=== PATIENT | male | born 1970 | race Caucasian/White ===

== ENCOUNTER → 2019-08-17 16:18 | Outpatient (BNVA) | payer BC, SELFPAY | PROVIDERS: Visit Provider Registered Nurse | DX: E11.9 Type 2 diabetes mellitus without complications (principal); I10 Essential (primary) hypertension; R60.9 Edema, unspecified | CPT/HCPCS: 80053; 80061; 83036 ==

== ENCOUNTER → 2019-12-14 16:53 | Outpatient (BNVA) | payer BC, SELFPAY | PROVIDERS: PCP Registered Nurse; Visit Provider Internal Medicine Cardiovascular Disease | DX: I10 Essential (primary) hypertension (principal) | CPT/HCPCS: 80048; 83735; 83880 ==

== ENCOUNTER → 2019-12-15 09:06 | Outpatient (BNVA) | payer BC, SELFPAY | PROVIDERS: PCP Registered Nurse; Visit Provider Internal Medicine Cardiovascular Disease | DX: I10 Essential (primary) hypertension (principal); E11.9 Type 2 diabetes mellitus without complications | CPT/HCPCS: 83036 ==

== ENCOUNTER 2019-12-31 13:48 | Outpatient (CLI) | payer BC, SELFPAY ==
--- NOTE | 2019-12-31 14:15 | USCV_ITS ---
Roney Anthony Age: 49 Gender: M : 1970 Exam Date: 12/31/2019 14:19 Ordering Phys: Maria Luisa Goodman MD ([email or web address]) Technologist: Chloe Borrego Exam Location: [facility] – [place] Indication: HTN, evaluate LV BP: / HR: 71 Rhythm: Sinus Technical Quality: Adequate MEASUREMENTS (Male / Female) Normal Values 2D ECHO LV Diastolic Diameter PLAX 4.4 cm 4.2 - 5.9 / 3.9 - 5.3 cm LV Systolic Diameter PLAX 2.3 cm IVS Diastolic Thickness 1.9 cm 0.6 - 1.0 / 0.6 - 0.9 cm IVS Systolic Thickness 2.0 cm LVPW Diastolic Thickness 1.7 cm 0.6 - 1.0 / 0.6 - 0.9 cm LVPW Systolic Thickness 2.1 cm LVOT Diameter 2.0 cm LV Ejection Fraction 2D Teich 80.3 % LV Ejection Fraction MOD 2C 69.6 % LV Ejection Fraction 2C AL 71.6 % LA Diameter 4.3 cm LA Width 4.8 cm LA Height 5.7 cm RA Width 3.4 cm RA Height 4.5 cm M-MODE LV Diastolic Diameter MM 5.7 cm 4.2 - 5.9 / 3.9 - 5.3 cm LV Systolic Diameter MM 3.1 cm LV Ejection Fraction MM Teich 75.2 % IVS Diastolic Thickness MM 1.7 cm 0.6 - 1.0 / 0.6 - 0.9 cm IVS Systolic Thickness MM 1.8 cm LVPW Diastolic Thickness MM 1.6 cm 0.6 - 1.0 / 0.6 - 0.9 cm LVPW Systolic Thickness MM 2.2 cm Aortic Annulus Diameter 3.3 cm LA Ao Ratio MM 1.3 MV E Point Septal Separation 0.7 cm DOPPLER AV Peak Velocity 171.0 cm/s LVOT Peak Velocity 153.0 cm/s AV Area Cont Eq vti 2.7 cm squared AV Area Cont Eq pk 2.8 cm squared MV Peak Velocity 114.0 cm/s MV Area PHT 4.1 cm squared Mitral E to A Ratio 0.9 MV E' Velocity 8.0 cm/s Mitral E to MV E' Ratio 14.6 Mitral E to LV E' Lateral Ratio 12.9 Mitral E to LV E' Septal Ratio 17.0 TR Peak Velocity 74.0 cm/s TR Peak Gradient 2.2 mmHg Right Atrial Pressure 3.0 mmHg Pulmonary Artery Systolic Pressu 5.2 mmHg PV Peak Velocity 120.0 cm/s RV Acceleration Time 0.1 s FINDINGS Left Ventricle Normal left ventricular size and systolic function with no regional wall motion abnormalities. Left ventricular ejection fraction is estimated at 70 %. Moderate concentric left ventricular hypertrophy. Normal diastolic function. Right Ventricle Normal right ventricular size and systolic function. Right ventricular systolic pressure 5.2 mmHg. Right Atrium Normal right atrial size. Left Atrium Upper normal left atrial size. Mitral Valve Structurally normal mitral valve. No mitral valve stenosis. Trace mitral valve regurgitation. Aortic Valve Structurally normal trileaflet aortic valve. No aortic valve stenosis. No aortic valve regurgitation. Tricuspid Valve Structurally normal tricuspid valve. No significant tricuspid valve regurgitation. Pulmonic Valve Pulmonic valve not well visualized. No pulmonary valve stenosis. Trace pulmonary valve regurgitation. Pericardium No pericardial effusion. Aorta Normal sized aortic root and proximal ascending aorta. CONCLUSIONS 1. Normal left ventricular size, systolic function and increased wall thickness, with no regional wall motion abnormalities. Moderate concentric left ventricular hypertrophy. Left ventricular ejection fraction is estimated at 70 %. Normal diastolic function. 2. Normal right ventricular size and systolic function. 3. No significant valvular abnormality. 4. No prior similar studies to compare. Maria Luisa Goodman MD (Electronically Signed) Final Date: 31 December 2019 22:21 S
== END 2019-12-31 13:49 | disposition home or self-care (01) ==
LOC: RAD 13:51
PROVIDERS: PCP Registered Nurse; Visit Provider Internal Medicine Cardiovascular Disease
DX: I10 Essential (primary) hypertension (principal)
CPT/HCPCS: 93306

== ENCOUNTER 2020-01-25 10:48 | Outpatient (CLI) | payer BC, SELFPAY ==
--- NOTE | 2020-01-25 11:00 | USCV_ITS ---
Roney Anthony Age: 49 Gender: M : 1970 Exam Date: 01/25/2020 11:13 Ordering Phys: Maria Luisa Goodman MD ([email or web address]) Technologist: Obi Love [place] [facility] [place]: hypertension Aortic Velocity @ SMA (cm/s) 98.7 RIGHT KIDNEY LEFT KIDNEY Velocity (cm/s) Velocity (cm/s) Sys/Lloyd Sys/Lloyd Resistive Index Resistive Index 70.8 / 14.5 0.80 Proximal Renal Artery 73.0 / 13.7 0.81 72.3 / 12.3 0.83 Mid Renal Artery 73.7 / 17.3 0.76 60.0 / 14.5 0.76 Distal Renal Artery 51.3 / 13.0 0.75 70.1 / 23.1 0.67 Hilar 67.9 / 15.9 0.77 51.3 / 13.0 0.75 Upper Pole 29.7 / 7.2 0.76 49.1 / 11.6 0.76 Mid Pole 36.5 / 36.5 0.00 44.1 / 10.8 0.75 Lower Pole 34.9 / 6.0 0.83 0.60 Renal Aortic Ratio 0.63 Accleration Index (cm/sec2) 1167.0 Hilar 924.00 0 1038.0 Upper Pole 718.00 0 1032.0 Mid Pole 515.00 0 759.00 Lower Pole 4150.0 0 139.9 Kidney Length (mm) 143.1 FINDINGS No priors. No evidence of abdominal aortic aneurysm. There is no evidence of hemodynamically significant right renal artery stenosis. There is no evidence of hemodynamically significant left renal artery stenosis. CONCLUSIONS There is no sonographic evidence of hemodynamically significant renal artery stenosis bilaterally. Dr. Jolene Best DO (Electronically Signed) Final Date: 25 January 2020 13:34 S
== END 2020-01-25 10:49 | disposition home or self-care (01) ==
LOC: RAD 10:51
PROVIDERS: PCP Registered Nurse; Visit Provider Internal Medicine Cardiovascular Disease
DX: I10 Essential (primary) hypertension (principal)
CPT/HCPCS: 93975

== ENCOUNTER → 2020-02-10 16:34 | Outpatient (BNVA) | payer BC, SELFPAY | PROVIDERS: PCP Registered Nurse; Visit Provider Internal Medicine Cardiovascular Disease | DX: I10 Essential (primary) hypertension (principal) | CPT/HCPCS: 80048; 83735; 83880 ==

== ENCOUNTER 2020-04-10 07:15 | Outpatient (CLI) | payer BC, SELFPAY ==
[2020-04-10 07:57] VITALS: BMI 39.9
--- NOTE | 2020-04-10 07:57 | ECG_ITS ---
[facility] Test Date: 2020-04-10 Pat Name: Roney Anthony Department: Room: Gender: Male [employer] Supervisor: Elizabeth Goetz : 1970 Requested By: Maria Luisa Goodman Order Number: [id number] Yareli MD: Maria Luisa Goodman M.D. Interpretive Statements NAME OF STUDY: LEXISCAN SESTAMIBI STRESS TEST INDICATION: Chest Pain PROCEDURE: At the baseline, the blood pressure was 167/68 mmHg with a heart rate of 51 beats per. The electrocardiogram showed sinus bradycardia with significant baseline artifact, normal axis with nonspecific ST depression. The Lexiscan was infused over a period of 20 seconds. A total of 0.4 milligrams of Lexiscan was infused. The stress phase was continued for a total of 5 minutes. Heart rate at the end of the stress phase was 82 bpm with a blood pressure 173/58 mm Hg. The EKG at the peak infusion revealed sinus rhythm with no significant ST-T wave changes. Sestamibi was injected 20 seconds after the Lexiscan infusion. Blood pressure at the end of the recovery phase was 171/60 mmHg with a heart rate of 96 beats per minute. CONCLUSION: 1. No significant EKG changes with the LexiScan infusion. Interpretation limited by significant baseline artifact. 2. No LexiScan induced chest pain or cardiac arrhythmia. 3. Normal blood pressure and heart rate response. 4. Sestamibi/sestamibi perfusion scan pending; see separate report. 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 [id number]
--- NOTE | 2020-04-10 07:58 | NMCV_ITS ---
NM qi perf SPECT r/s* [id number] Roney Anthony Age: 49 Gender: M : 1970 Exam Date: 04/10/2020 07:58 Ordering Phys: Maria Luisa Goodman MD ([email or web address]) Technologist: GRAZYNA Nesbitt Exam Location: [facility] Indications: CHEST PAIN STRESS TEST Please see separate stress test report in [facility] for full findings IMAGE PROTOCOL Rest/Stress 1 Lexiscan Day Radiopharmaceutical Dose (mCi) Administration Site Administered by Rest: Tc-99m 10.9 IV GRAZYNA Eaton Sestamibi Stress:Tc-99m 32.7 IV GRAZYNA Eaton Sestamibi Rest: 10-Apr-2020 60 Discovery 630 Stress: 10-Apr-2020 30 Discovery 630 0.4mg Lexiscan. Images obtained in supine and prone position. SPECT RESULTS Technical Quality: Excellent Raw Data Analysis: Normal Image Corrections: No attenuation or motion correction applied Summed Stress Score: 2 Summed Rest Score: 1 Summed Difference Score: 1 PERFUSION FINDINGS Small sized perfusion abnormality of mild severity of apical inferior wall on rest images with subtle reversibility in mid inferior wall on stress images. FUNCTIONAL RESULTS (calculated via Gated SPECT) Stress Image LV EF (%): 63 Stress EDV (mL):205 TID: 1.02 Stress ESV (mL):75 FUNCTIONAL FINDINGS: The left ventricle is normal in size. Transient Ischemia Dilatation of 1. There is normal left ventricular systolic function. The left ventricular ejection fraction is normal with a value of 63%. There is normal left ventricular wall thickening. IMPRESSIONS 1. Small sized perfusion abnormality of mild severity of apical inferior wall with subtle reversibility in mid inferior wall on stress images. 2. This may represent old myocardial infarction in right coronary artery territory with mild tali-infarct ischemia. 3. Overall left ventricular systolic function is normal without regional wall motion abnormalities. 4. The left ventricular ejection fraction is normal with a value of 63%. 5. No prior similar studies to compare. Maria Luisa Goodman MD (Electronically Signed) Final Date: 13 April 2020 12:32 S
[2020-04-10] MEDS: regadenoson 0.4 Mg/5 ml Syringe IVP (09:15)
[2020-04-10 09:16] VITALS: BP 183/61; PULSE 94
== END 2020-04-10 07:16 | disposition home or self-care (01) ==
LOC: CDL 07:17
PROVIDERS: PCP Registered Nurse; Visit Provider Internal Medicine Cardiovascular Disease
DX: R07.9 Chest pain, unspecified (principal); I10 Essential (primary) hypertension
CPT/HCPCS: 78452; 93017; A9500; J2785

== ENCOUNTER → 2020-11-02 15:58 | Outpatient (BNVA) | payer BC, SELFPAY | PROVIDERS: PCP Registered Nurse; Visit Provider Registered Nurse | DX: Z20.822 Contact with and (suspected) exposure to COVID-19 (principal) | CPT/HCPCS: 87635 ==

== ENCOUNTER → 2020-11-30 16:24 | Outpatient (BNVA) | payer BC, SELFPAY | PROVIDERS: PCP Registered Nurse; Visit Provider Registered Nurse | DX: E11.9 Type 2 diabetes mellitus without complications (principal); I10 Essential (primary) hypertension | CPT/HCPCS: 80053; 83036; 85025; 86141 ==

== ENCOUNTER 2021-01-29 13:10 | Outpatient (CLI) | payer OTHER, SELFPAY | END 2021-01-29 13:11 | disposition home or self-care (01) | LOC: WOUND 13:10 | PROVIDERS: PCP Registered Nurse; Visit Provider Emergency Medicine | DX: E11.621 Type 2 diabetes mellitus with foot ulcer (principal); L97.512 Non-pressure chronic ulcer of other part of right foot with fat layer exposed; L97.422 Non-pressure chronic ulcer of left heel and midfoot with fat layer exposed | CPT/HCPCS: 11042; 11045; 87070; 87077; 87176; 87186; 87205; 97605; G0463 ==

== ENCOUNTER 2021-01-29 15:10 | Inpatient (IN) | payer OTHER, SELFPAY ==
[2021-01-29 15:26] VITALS: BP 124/83; PULSE 85; RESP 16; TEMP 36.9; O2SAT 96
--- NOTE | 2021-01-29 17:35 | XRR_ITS ---
PROCEDURE INFORMATION: Exam: XR Right Foot Exam date and time: 01/29/2021 5:35 PM Age: 50 years old Clinical indication: Pain; Foot; Right; Additional info: Wound infection, sores, redness and swelling TECHNIQUE: Imaging protocol: XR Right foot. Views: 3 or more views. COMPARISON: No relevant prior studies available. FINDINGS: Bones/joints: Soft tissue swelling about the 1st digit with some possible irregular lucency to the base of the 1st distal phalanx perhaps reflecting underlying osteomyelitis in the appropriate clinical setting. Distal Achilles tendon degenerative calcification. Moderate tibiotalar, intertarsal and tarsometatarsal joint osteoarthritis. 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 Soft tissues: See Bones/joints finding. XR/XR foot RT min 3V* [id number] IMPRESSION: 1. Soft tissue swelling about the 1st digit with some possible irregular lucency to the base of the 1st distal phalanx perhaps reflecting underlying osteomyelitis in the appropriate clinical setting. 2. Distal Achilles tendon degenerative calcification. 3. Moderate tibiotalar, intertarsal and tarsometatarsal joint osteoarthritis. 4. 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
[2021-01-29 20:43] VITALS: BP 163/94; PULSE 80; RESP 16; TEMP 36.4; O2SAT 97
--- NOTE | 2021-01-29 20:43 | PC.NURSE ---
Assumed care of this patient at this time.
--- NOTE | 2021-01-29 20:47 | ED_ITS ---
HPI - Wound/Laceration General: Chief Complaint: Wound/Laceration Stated Complaint: R. FOOT SWELLING/INFECTION Time Seen by Provider: 01/29/21 20:47 History of Present Illness: HPI narrative: [id number] male patient comes in today with complaints of redness and swelling with ulceration to the. Patient reports last week he noticed some swelling and redness with some blistering to the foot. Patient talked to his primary care and they referred him to wound clinic. Patient was seen by wound clinic today and referred to the ER for further evaluation and treatment. Patient is alert oriented and responding appropriately to questions. Skin is warm and dry. Patient does report occasional chills but no night sweats or other symptoms. Patient has a history of diabetes, hypertension, sleep apnea, and COVID-19 in November,. Patient denies any antibiotic treatment. Review of Systems General: Reports: 10 or more systems reviewed and unremarkable except in HPI and below Skin/Breast: Reports: other (Redness and swelling to the right distal foot.) FOR[facility]LY [facility] ED PFSH: Medical History Diabetes Edema Neuropathy Pneumonia due to COVID-19 virus Sleep apnea Family History Other CAD (coronary artery disease) Hypertension Physical Exam Const: COMMON NORMALS: no acute distress and patient oriented x3 GENERAL APPEARANCE: cooperative HENMT: COMMON NORMALS: normocephalic and Normal external nose present HEAD & SCALP: normal to inspection and normocephalic NOSE: Normal external nose present MOUTH: Normal oral and palatal mucosa present Eye: GENERAL EYE: appearance normal, both eyes and all related structures Neck/C-Spine: COMMON NORMALS: full ROM Chest: COMMONS NORMALS: normal inspection of the chest Resp: COMMON NORMALS: normal respiratory effort EFFORT & INSPECTION: Yes able to speak in complete sentences Cardio: COMMON NORMALS: regular rate and regular rhythm RATE: regular rate RHYTHM: regular rhythm GI: COMMON NORMALS: non-tender : COMMON NORMALS: Yes no CVA tenderness BLADDER/KIDNEY EXAM: Yes no CVA tenderness Back/Pelvis: COMMON NORMALS: no CVA tenderness and thoracic and lumbar spine normal to inspection Extremity: NARRATIVE EXTREMITY EXAM: Right great toe is enlarged with redness. Patient has decreased sensation throughout the foot. There is ulceration to the dorsal foot. Fat is exposed. Neuro: COMMON NORMALS: patient oriented x3 and moves all extremities Psych: COMMON NORMALS: mental status grossly normal and cooperative Skin: COMMON NORMALS: no rashes or lesions noted GENERAL SKIN EXAM: no rashes or lesions noted Course Consultations: Consultation #1: Discussed with Dr. Woodruff for patient admission for osteomyelitis of the foot. Time: 21:58 Vital Signs: Vital signs: Vital Signs Temperature 97.5 F L 01/29/21 21:11 Pulse Rate 87 01/29/21 21:11 Respiratory Rate 16 01/29/21 21:11 Blood Pressure 152/80 01/29/21 21:11 Pulse Oximetry 97 01/29/21 21:11 MDM - Wound/Laceration MDM Narrative: Medical decision making narrative: Patient comes in for redness and swelling with worsening symptoms over the last week. Patient states he noticed the swelling started last week with some blistering and now development of ulcers to the foot. Patient was referred to wound care and had seen him today but referred to the ER for further evaluation. On exam we note significant cellulitis and swelling to the foot and great toe of the right lower extremity. Patient is alert and oriented. Patient does have diabetes. Differential diagnosis includes osteomyelitis, abscess, cellulitis. X-ray noted osteomyelitis to the first digit of the foot. Patient also had elevation of white blood cell count. Glucose was good at 128. Lactate was 1.1. Reviewed exam with Dr. Vila who recommended that we talk with hospitalist for admission. Hospitalist agreed to plan for admission. Vancomycin was started and a CT was ordered for further evaluation. Lab Data: Labs: Lab Results 01/29/21 01/29/21 01/29/21 20:48 21:14 21:14 WBC 13.7 10^3/uL H 10 ^3/uL (4.0-10.0) RBC 3.93 10^6/uL L 10 ^6/uL (4.1-5.3) Hgb 11.4 g/dL L g/dL (11.7-16.6) Hct 35.0 % L % (42.0-52.0) MCV 89.1 fl fl (80-94) MCH 29.0 pg pg (28.0-34.0) MCHC 32.6 g/dL g/dL (30.0-36.0) RDW 13.1 % % (12.1-15.1) Plt Count 442 10^3/cmm H 10 ^3/cmm (130-400) MPV 9.7 fL fL (7.4-10.4) Neut % (Auto) 68.9 % % Lymph % (Auto) 18.6 % % Clayton % (Auto) 6.6 % % Eos % (Auto) 4.5 % % Baso % (Auto) 0.7 % % Neut # (Auto) 9.45 10^3/uL H 10 ^3/uL (1.8-7.7) Lymph # (Auto) 2.6 10^3/uL 10^3/ uL (0.8-4.8) Clayton # (Auto) 0.9 10^3/uL 10^3/ uL (0.2-0.9) Eos # (Auto) 0.6 10^3/uL 10^3/ uL (0.0-0.8) Baso # (Auto) 0.1 10^3/uL 10^3/ uL (0.0-0.1) Nucleated RBC % (a uto) 0 % % Nucleated RBCs # 0.0 /100WBC /100W BC Sodium 141 mmol/L mmol/L (136-145) Potassium 4.2 mmol/L mmol/L (3.5-5.1) Chloride 103 mmol/L mmol/L (98-107) Carbon Dioxide 25 mmol/L mmol/L (22-29) Anion Gap 17.2 (5-19) BUN 13 mg/dL mg/dL (6-20) Creatinine 1.1 mg/dL mg/dL (0.7-1.2) GFR Calculation 70.6 mL/min L mL/ min (90-130) Glucose 128 mg/dL H mg/dL (65-115) POC Glucose 131 mg/dL H mg/dL (70-110) Calculated Osmolal ity 294 mOsm/kg mOsm/ kg (285-295) Lactate Calcium 9.4 mg/dL mg/dL (8.5-10.5) Total Bilirubin 0.5 mg/dL mg/dL (0.15-1.2) AST 19 U/L U/L (0-40) ALT 28 U/L U/L (0-41) Alkaline Phosphata se 143 IU/L H IU/L (40-130) Total Protein 7.8 g/dL g/dL (6.6-8.7) Albumin 3.6 g/dL g/dL (3.5-5.2) Globulin 4.2 g/dL g/dL (1.3-4.6) 01/29/21 21:14 WBC RBC Hgb Hct MCV MCH MCHC RDW Plt Count MPV Neut % (Auto) Lymph % (Auto) Clayton % (Auto) Eos % (Auto) Baso % (Auto) Neut # (Auto) Lymph # (Auto) Clayton # (Auto) Eos # (Auto) Baso # (Auto) Nucleated RBC % (a uto) Nucleated RBCs # Sodium Potassium Chloride Carbon Dioxide Anion Gap BUN Creatinine GFR Calculation Glucose POC Glucose Calculated Osmolal ity Lactate 1.1 mmol/L mmol/L (0.5-2.2) Calcium Total Bilirubin AST ALT Alkaline Phosphata se Total Protein Albumin Globulin Discharge Plan Discharge Patient Disposition: Admitted As Inpatient Clinical Impression: Osteomyelitis of toe of right foot Condition: Stable Coding Level of Care Code ED Jewelry Sorter for Priscilla Fwd Exam Comprehensive
[2021-01-29 21:11] VITALS: BP 152/80; PULSE 87; RESP 16; TEMP 36.4; O2SAT 97
[2021-01-29 21:24] LABS: Glucose Point of Care 131 mg/dL (70-110)
[2021-01-29 21:28] LABS: Basophils # 0.1 10^3/uL (0.0-0.1); Basophils % 0.7 %; Eosinophils # 0.6 10^3/uL (0.0-0.8); Eosinophils % 4.5 %; Hemoglobin 11.4 g/dL (11.7-16.6); Lymphocytes # 2.6 10^3/uL (0.8-4.8); Lymphocytes % 18.6 %; Mean Corpuscular HGB Conc 32.6 g/dL (30.0-36.0); Mean Corpuscular Volume 89.1 fl (80-94); Mean Platelet Volume 9.7 fL (7.4-10.4); Monocytes # 0.9 10^3/uL (0.2-0.9); Monocytes % 6.6 %; Neutrophils # 9.45 10^3/uL (1.8-7.7); Neutrophils % 68.9 %; Nucleated Red Blood Cells % 0 %; Platelet Count 442 10^3/cmm (130-400); Red Blood Count 3.93 10^6/uL (4.1-5.3); Red Cell Distribution Width 13.1 % (12.1-15.1); White Blood Count 13.7 10^3/uL (4.0-10.0)
[2021-01-29] MEDS: vancomycin 1,000 MG in sodium chloride 0.9% 250 ML 250 MG IV (21:41)
[2021-01-29 21:42] LABS: Alanine Aminotransferase 28 U/L (0-41); Albumin Level 3.6 g/dL (3.5-5.2); Alkaline Phosphatase 143 IU/L (40-130); Anion Gap 17.2 (5-19); Aspartate Amino Transferase 19 U/L (0-40); Blood Urea Nitrogen 13 mg/dL (6-20); Calcium 9.4 mg/dL (8.5-10.5); Carbon Dioxide 25 mmol/L (22-29); Chloride 103 mmol/L (98-107); Creatinine Clr Calc Pharmacy 102.5145; Globulin 4.2 g/dL (1.3-4.6); Glomerular Filtration Rate 70.6 mL/min (90-130); Glucose 128 mg/dL (65-115); Osmolality Calculated 294 mOsm/kg (285-295); Potassium 4.2 mmol/L (3.5-5.1); Sodium 141 mmol/L (136-145); Total Bilirubin 0.5 mg/dL (0.15-1.2); Total Protein 7.8 g/dL (6.6-8.7)
[2021-01-29 21:43] LABS: Lactate (Lactic Acid level) 1.1 mmol/L (0.5-2.2)
--- NOTE | 2021-01-29 21:56 | CTR_ITS ---
PROCEDURE INFORMATION: Exam: CT Right Lower Extremity Without Contrast, Foot Exam date and time: 01/29/2021 9:56 PM Age: 50 years old Clinical indication: Pain; Swelling, leg or foot; Right; Additional info: Cellulitis, osteomyelitis TECHNIQUE: Imaging protocol: CT of the Right lower extremity without contrast was performed. Exam focused on the foot. Radiation optimization: All CT scans at this facility use at least one of these dose optimization techniques: automated exposure control; mA and/or kV adjustment per patient size (includes targeted exams where dose is matched to clinical indication); or iterative reconstruction. COMPARISON: CR (LOW EXM, ) 01/29/2021 5:50 PM RADIATION DOSE METRICS: Total DLP (mGy-cm): 191.1 FINDINGS: Bones/joints: First proximal phalanx demonstrates periarticular erosive changes which are likely degenerative in nature at the metatarsophalangeal joint. First distal phalanx proximal aspect demonstrates subtle some subarticular lucency along the dorsum at the interphalangeal joint, which may be degenerative in nature, however, underlying infection is also a consideration. Soft tissues: Diffuse subcutaneous edema about the lower extremity without focal fluid collection suggestive of a cellulitis. Subcutaneous emphysema seen overlying the dorsum of the 1st metatarsophalangeal joint likely reflecting an infectious process, which nearly extends to the metatarsophalangeal joint space, potentially concerning for underlying joint space infection. CT/CT foot RT wo con* [id number] IMPRESSION: 1. Diffuse subcutaneous edema about the lower extremity without focal fluid collection suggestive of a cellulitis. 2. Subcutaneous emphysema seen overlying the dorsum of the 1st metatarsophalangeal joint likely reflecting an infectious process, which nearly extends to the metatarsophalangeal joint space, potentially concerning for underlying joint space infection. A MRI could further characterize this. 3. First proximal phalanx demonstrates periarticular erosive changes which are likely degenerative in nature at the metatarsophalangeal joint. 4. First distal phalanx proximal aspect demonstrates subtle some subarticular lucency along the dorsum at the interphalangeal joint, which may be degenerative in nature, however, underlying infection is also a consideration. A MRI could further characterize this. Radiation Dose CTDIVOL = (mGy): DLP = 191.1 (mGy-cm)
[2021-01-29 22:07] VITALS: BP 152/83; PULSE 88; RESP 18; TEMP 36.4; O2SAT 97
[2021-01-29 22:55] VITALS: BP 142/88; PULSE 95; RESP 16; TEMP 36.8; O2SAT 95
[2021-01-29 23:18] VITALS: BP 142/88; PULSE 95; RESP 16; TEMP 36.8; O2SAT 95
[2021-01-29 23:47] VITALS: BMI 39.3
[2021-01-30] VITALS (9 sets, daily range): BP systolic 149–186; BP diastolic 75–113; PULSE 66–91; RESP 14–18; TEMP 36.5–36.7; O2SAT 93–98
--- NOTE | 2021-01-30 04:02 | PM.HP ---
Providers/Chief Complaint Admitting Physician: Bharti Woodruff MD Primary Care Provider: DAVID Pack Chief Complaint: R. FOOT SWELLING/INFECTION History of Present Illness Roney Anthony is a 50 year old male with past medical history of morbid obesity, SAMANTHA on BiPAP, NIDDM, recent COVID-19 pneumonia requiring hospitalization at [facility] in November 2020, discharged with 2 L/min on nasal cannula, now currently on room air. Presenting to the ER today after being sent over from wound care clinic due to swelling over the right foot progressively increasing over the last associated with overlying ulceration over the dorsal aspect. Patient states he first noticed swelling over the right foot 1 week ago. Does not recall any obvious trauma, however he does have peripheral neuropathy and reduced sensation in that foot. Swelling redness has been increasing over the course of 1 week and he developed an ulceration additionally on the dorsal aspect of the foot. This concerning changes took him to his PCP who directed him to wound care and ultimately came to the ER. CT of the foot today shows cellulitis without any underlying drainable abscess, also possibility of osteomyelitis and first MP septic joint. Denies any fever at home. Review of Systems General: Reports: 10 or more systems reviewed and unremarkable except in HPI and below Const: Denies: fever(s), chills or body aches Eyes: Denies: change in vision, blurry vision or photophobia ENMT: Reports: hoarseness; Denies: throat pain, enlarged tonsils, odynophagia or nasal congestion Card: Denies: chest pain, palpitations, irregular heart rhythm, edema, swelling of feet/ankles, lightheadedness, pre-syncope, dyspnea on exertion or orthopnea Resp: Denies: dyspnea, productive cough, non-productive cough, wheezing, stridor, pain on inspiration, change in phlegm color, hemoptysis or chest congestion GI: Denies: abdominal pain, nausea, vomiting, hematemesis, coffee ground emesis, dysphagia, heartburn, diarrhea, constipation, GI cramping, change in stool character, hematochezia or melena : Denies: flank pain, dysuria, urinary frequency, urinary urgency, urinary hesitancy or hematuria Musc: Denies: neck pain, back pain, extremity pain, joint swelling, joint warmth or deformity Neuro: Denies: headache(s), numbness in extremities, weakness in extremities, sensory changes, difficulty walking, frequent falls, dizziness, vertigo, behavioral changes, Slurred speech present or seizure-like activity Psych: Denies: anxiety, depression, suicidal ideation or homicidal ideation Endo: Denies: polyuria, polydipsia, tired all the time, cold intolerance or hot flashes Bowen/Lymph: Denies: easy bruising or easy bleeding Medications/Allergies Home Medications Medication Instructions Recorded Confirmed Last Taken Type saw palmetto 450 mg capsule 450 mg PO DAILY cap 12/01/19 01/29/21 01/29/21 History semaglutide 1 mg/dose (4 mg/3 mL) 0.5 mg SUBCUT .Once a week #3 ml 12/04/20 01/29/21 01/26/21 Rx subcutaneous pen injector rosuvastatin 10 mg tablet 10 mg PO DAILY #90 tab 12/11/20 01/29/21 01/29/21 Rx spironolactone 50 mg tablet 50 mg PO DAILY #90 tab 12/11/20 01/29/21 01/29/21 Rx portable oxygen (Inogen) #1 ea 12/27/20 01/29/21 Unknown Rx concentrator bumetanide 0.5 mg tablet 0.5 mg PO BID #20 tab 01/29/21 01/29/21 01/29/21 Rx celecoxib 100 mg PO BID 01/29/21 01/29/21 01/29/21 History clonidine HCl 0.1 mg PO BEDTIME 01/29/21 01/29/21 01/28/21 History clonidine HCl 0.2 mg PO DIRECTED 01/29/21 01/29/21 01/29/21 History furosemide 40 mg PO DAILY 01/29/21 01/29/21 01/29/21 History hydralazine 100 mg PO TID 01/29/21 01/29/21 01/29/21 History lisinopril 40 mg PO BEDTIME 01/29/21 01/29/21 01/28/21 History nifedipine 60 mg PO BEDTIME 01/29/21 01/29/21 01/28/21 History potassium chloride 20 meq PO DAILY 01/29/21 01/29/21 01/29/21 History Allergies Allergy/AdvReac Type Severity Reaction Status Date / Time Penicillins Allergy Unknown Verified 01/29/21 08:41 PFSH Acute PFSH: Medical History Diabetes Edema Neuropathy Pneumonia due to COVID-19 virus Sleep apnea Family History Other CAD (coronary artery disease) Hypertension Vitals/I&O/Wt Last Vital Signs Temp 97.9 F 01/30/21 03:26 Pulse 83 01/30/21 03:26 Resp 18 01/30/21 03:26 BP 169/103 01/30/21 03:26 Pulse Ox 98 01/30/21 03:26 01/29/21 01/29/21 01/30/21 14:59 22:59 06:59 Intake Total 250 / 250 Balance 250 / 250 Weight last 48 hrs Weight 120.837 kg Weight 122.016 kg Physical Exam Narrative: EXAM NARRATIVE: General: No acute distress, AO x3 HEENT: PERRLA, pupils bilaterally equal and reactive, pallors not present Chest: Normal vesicular breath sounds, no added sounds, equal good air entry bilaterally CVS: S1-S2 regular, no murmurs, no tachycardia, no gallops, no rubs Abdomen: Soft, nontender, no organomegaly, bowel sounds present Neuro: No focal deficits, no facial deformity, AO x3, power 5/5 in all limbs Extremities: Right foot appears to be grossly swollen with changes of cellulitis, open superficial ulceration with overlying yellow-green discharge. Data : 01/30/21 05:04 01/30/21 05:04 Micro: Microbiology 01/29/21 21:15 Blood Culture - Preliminary Blood SPECIMEN COLLECTED 01/29/21 21:14 Blood Culture - Preliminary Blood SPECIMEN COLLECTED Attestation for Other Data: I personally reviewed and interpreted the following: Other data: Laboratory Results WBC 13.7 10^3/uL (4.0-10.0) H 01/29/21 21:14 RBC 3.93 10^6/uL (4.1-5.3) L 01/29/21 21:14 Hgb 11.4 g/dL (11.7-16.6) L 01/29/21 21:14 Hct 35.0 % (42.0-52.0) L 01/29/21 21:14 MCV 89.1 fl (80-94) 01/29/21 21:14 MCH 29.0 pg (28.0-34.0) 01/29/21 21:14 MCHC 32.6 g/dL (30.0-36.0) 01/29/21 21:14 RDW 13.1 % (12.1-15.1) 01/29/21 21:14 Plt Count 442 10^3/cmm (130-400) H 01/29/21 21:14 MPV 9.7 fL (7.4-10.4) 01/29/21 21:14 Neut % (Auto) 68.9 % 01/29/21 21:14 Lymph % (Auto) 18.6 % 01/29/21 21:14 Mathews % (Auto) 6.6 % 01/29/21 21:14 Eos % (Auto) 4.5 % 01/29/21 21:14 Baso % (Auto) 0.7 % 01/29/21 21:14 Neut # (Auto) 9.45 10^3/uL (1.8-7.7) H 01/29/21 21:14 Lymph # (Auto) 2.6 10^3/uL (0.8-4.8) 01/29/21 21:14 Mathews # (Auto) 0.9 10^3/uL (0.2-0.9) 01/29/21 21:14 Eos # (Auto) 0.6 10^3/uL (0.0-0.8) 01/29/21 21:14 Baso # (Auto) 0.1 10^3/uL (0.0-0.1) 01/29/21 21:14 Nucleated RBC % (auto) 0 % 01/29/21 21:14 Nucleated RBCs # 0.0 /100WBC 01/29/21 21:14 Sodium 141 mmol/L (136-145) 01/29/21 21:14 Potassium 4.2 mmol/L (3.5-5.1) 01/29/21 21:14 Chloride 103 mmol/L (98-107) 01/29/21 21:14 Carbon Dioxide 25 mmol/L (22-29) 01/29/21 21:14 Anion Gap 17.2 (5-19) 01/29/21 21:14 BUN 13 mg/dL (6-20) 01/29/21 21:14 Creatinine 1.1 mg/dL (0.7-1.2) 01/29/21 21:14 GFR Calculation 70.6 mL/min (90-130) L 01/29/21 21:14 Glucose 128 mg/dL (65-115) H 01/29/21 21:14 POC Glucose 131 mg/dL (70-110) H 01/29/21 20:48 Calculated Osmolality 294 mOsm/kg (285-295) 01/29/21 21:14 Lactate 1.1 mmol/L (0.5-2.2) 01/29/21 21:14 Calcium 9.4 mg/dL (8.5-10.5) 01/29/21 21:14 Total Bilirubin 0.5 mg/dL (0.15-1.2) 01/29/21 21:14 AST 19 U/L (0-40) 01/29/21 21:14 ALT 28 U/L (0-41) 01/29/21 21:14 Alkaline Phosphatase 143 IU/L (40-130) H 01/29/21 21:14 Total Protein 7.8 g/dL (6.6-8.7) 01/29/21 21:14 Albumin 3.6 g/dL (3.5-5.2) 01/29/21 21:14 Globulin 4.2 g/dL (1.3-4.6) 01/29/21 21:14 Impressions Foot X-Ray 01/29/21 17:35 IMPRESSION: 1. Soft tissue swelling about the 1st digit with some possible irregular lucency to the base of the 1st distal phalanx perhaps reflecting underlying osteomyelitis in the appropriate clinical setting. 2. Distal Achilles tendon degenerative calcification. 3. Moderate tibiotalar, intertarsal and tarsometatarsal joint osteoarthritis. 4. 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 Foot CT 01/29/21 21:56 IMPRESSION: 1. Diffuse subcutaneous edema about the lower extremity without focal fluid collection suggestive of a cellulitis. 2. Subcutaneous emphysema seen overlying the dorsum of the 1st metatarsophalangeal joint likely reflecting an infectious process, which nearly extends to the metatarsophalangeal joint space, potentially concerning for underlying joint space infection. A MRI could further characterize this. 3. First proximal phalanx demonstrates periarticular erosive changes which are likely degenerative in nature at the metatarsophalangeal joint. 4. First distal phalanx proximal aspect demonstrates subtle some subarticular lucency along the dorsum at the interphalangeal joint, which may be degenerative in nature, however, underlying infection is also a consideration. A MRI could further characterize this. Radiation Dose CTDIVOL = (mGy): DLP = 191.1 (mGy-cm) A&P Assessment and plan (1) Osteomyelitis of toe of right foot: Status: Acute (2) Cellulitis: Status: Acute Qualifiers: Site of cellulitis: other site Qualified Code(s): L03.818 - Cellulitis of other sites Additional A&P Information Presenting today with subacute swelling of the right foot, with CT suggestive of cellulitis without any underlying abscess, diffuse subcutaneous emphysema overlying the first metatarsophalangeal joint, raising concern also for underlying joint space infection. Erosive changes over the first phalanx which may be related to underlying osteomyelitis. Ad[facility] Start empiric antibiotic coverage with cefepime, vancomycin and p.o. Flagyl for additional anaerobic coverage Check ESR, CRP, HbA1c Clinically appearing to be euvolemic, does not need additional IV fluids at this time. Blood culture taken prior to initiation of antibiotics. Lower extremity venous Doppler. Podiatry consult Diabetes mellitus: Insulin sliding scale while remains inpatient. Hypertension: Continue home doses of hydralazine, lisinopril, nifedipine and spironolactone. Sleep apnea: Continue BiPAP use as needed, currently saturating 98% on room air. DVT prophylaxis: Lovenox Full code. Attestations Medical Necessity Statement*: Anticipate greater than 2 midnight admission for need for IV antibiotics, surgical assessment. 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
--- NOTE | 2021-01-30 04:17 | PC.PHAR ---
Pharmacokinetic dosing service Date: 01/30/21 Time: 399 Objective: Patient: Roney Anthony Floor: 276-2 Age: 50 yo Serum creatinine: 1.1 mg/dL Height: 69.0 Inches Weight (kg): 120.837 Diagnosis: Relevant medical/social history: Cultures and sensitivities: Other labs: Assessment: IBW (kg): 70.70 Dosing wt(kg): 120.837 Estimated Creatinine clearance (ml/min): 79.4 CRCL method: Cockcroft and Gault using ibw(default). Drug selected: Vancomycin Loading dose (mg): 0 Vd (liters): 108.8 (factor used: 0.9 L/kg) Kalen (hr-1): 0.070 Half life (hrs): 9.90 Recommended dose: 2000 mg Interval: 12 hrs Infusion time (hrs): 1.5 Predicted peak (mcg/mL): 30.7 Predicted trough (mcg/mL): 14.72 Total body weight is being used for vancomycin dosing. Renal function is stable [ ] /unstable [ ] Recommendations: Give Vancomycin 2000 mg q 12 hrs with an expected Cpeak of 30.7 mcg/ml and an expected Ctrough of 14.72 mcg/ml Renal dosing of other antibiotics (review renal dosing of other medications and list guidelines here): Thank you for the consult, will continue to follow. Signature: Dulce Oh formerly [facility]
[2021-01-30] MEDS: cefepime 2,000 MG in sodium chloride 0.9% (plus) 50 ML 100 MG IV ×2 (04:18→16:40)
[2021-01-30] MEDS: enoxaparin 40 mg/0.4 mL Syringe SUBCUT (04:18)
[2021-01-30 05:35] LABS: Basophils # 0.1 10^3/uL (0.0-0.1); Basophils % 0.7 %; Eosinophils # 0.6 10^3/uL (0.0-0.8); Eosinophils % 5.3 %; Hematocrit 32.6 % (42.0-52.0); Hemoglobin 10.5 g/dL (11.7-16.6); Lymphocytes # 1.8 10^3/uL (0.8-4.8); Lymphocytes % 17.1 %; Mean Corpuscular HGB Conc 32.2 g/dL (30.0-36.0); Mean Corpuscular Hemoglobin 28.8 pg (28.0-34.0); Mean Corpuscular Volume 89.3 fl (80-94); Mean Platelet Volume 9.8 fL (7.4-10.4); Monocytes # 0.7 10^3/uL (0.2-0.9); Monocytes % 6.8 %; Neutrophils # 7.15 10^3/uL (1.8-7.7); Neutrophils % 69.4 %; Nucleated Red Blood Cells % 0 %; Platelet Count 398 10^3/cmm (130-400); Red Blood Count 3.65 10^6/uL (4.1-5.3); White Blood Count 10.3 10^3/uL (4.0-10.0)
[2021-01-30 05:52] LABS: Alanine Aminotransferase 29 U/L (0-41); Albumin Level 3.1 g/dL (3.5-5.2); Alkaline Phosphatase 120 IU/L (40-130); Anion Gap 16.1 (5-19); Aspartate Amino Transferase 28 U/L (0-40); Blood Urea Nitrogen 13 mg/dL (6-20); Carbon Dioxide 25 mmol/L (22-29); Chloride 106 mmol/L (98-107); Globulin 3.7 g/dL (1.3-4.6); Glucose 155 mg/dL (65-115); Osmolality Calculated 299 mOsm/kg (285-295); Potassium 4.1 mmol/L (3.5-5.1); Sodium 143 mmol/L (136-145); Total Bilirubin 0.3 mg/dL (0.15-1.2); Total Protein 6.8 g/dL (6.6-8.7)
[2021-01-30 05:59] LABS: C Reactive Protein 163.1 mg/L (0.0-4.9)
[2021-01-30 06:00] LABS: Procalcitonin 0.21 ng/mL (0-0.5)
[2021-01-30 06:25] LABS: Glucose Point of Care 160 mg/dL (70-110)
[2021-01-30 06:34] LABS: Erythrocyte Sedimentation Rate > 120 mm/hr (0-10)
--- NOTE | 2021-01-30 06:57 | USCV_ITS ---
Roney Anthony Age: 50 Gender: M : 1970 Exam Date: 01/30/2021 08:04 Ordering Phys: Bharti Woodruff MD Technologist: Chloe Borrego Exam Location: [facility] [place] Indication: cellulitis RLE, ulceration PROCEDURES: The following venous structures were evaluated: common femoral vein, profunda vein, proximal portion of the greater saphenous vein, superficial femoral vein, and the popliteal vein in RLE. In addition, the posterior tibial and peroneal trunk were also evaluated. . FINDINGS: Right GSV from [place] to ankle has non occlusive thrombus. No thrombus seen in any other veins in RLE. CONCLUSIONS Non occlusive thrombus Right Greater saphenous from adductor hiatus to the ankle RLE vessels are otherwise patent Enlarged inguinal lymph node nonspecific but may be reactive 2.1 x 3.2cm D/w Dr Manley at [id number] on 01/30/21 Rayo Peña MD (Electronically Signed) Final Date: 30 January 2021 11:29 S
[2021-01-30] MEDS: metroNIDAZOLE 500 MG Tablet PO ×3 (08:21→20:43)
[2021-01-30] MEDS: spironolactone 25 mg Tablet 50 MG PO (08:21)
[2021-01-30] MEDS: pantoprazole DR 40 mg Tablet PO (08:21)
[2021-01-30] MEDS: bumetanide 1 mg Tablet 0.5 MG PO ×2 (08:21→17:41)
[2021-01-30] MEDS: atorvastatin 40 mg Tablet PO (08:21)
--- NOTE | 2021-01-30 11:00 | PC.CHAP ---
Pastoral Care Encounter/Spiritual Assessment Type of Contact [] Declined cone chocolate dipper visit [] Patient/Family/Request visit [] Outpatient visit [] Follow-up visit [] Physician referral [] Code/Alert [x] Routine visit [] Staff referral [] Actively dying [] Patient sleeping [] Family support [] [] Out of room [] Palliative care [] [] Receiving care in room [] Pre-surgical visit [] Trauma [] Long length of stay [] ICU visit [] Other: Relational/Emotional Strength [x] Patient feels connected with others/family/visitors/staff [] Distress [] Loneliness/isolation [] Abandonment Spirituality of Patient [] Person of Fior [] Attends Mosque of their Fior [] Believes in Prayer [] Reads Bible or Congregation materials [] There are Spiritual issues to be addressed Soda Dialyzer Interventions [] Prayer [x] Active listening [x] Non-anxious presence [x] Spiritual/emotional support [] Crisis/trauma care [] Spiritual counseling [] Bereavement support [] Provided bereavement packet [] Provided Bible/devotional materials [] Provided toy/stuffed animal, coloring book to patient or family member [] Provided Communion [] Anointing/Metaline [] Salvation [] Completed spiritual assessment [] Other: Impact on Illness or Injury [] Angry [] Fearful [] Anxious [] Often cries [] Exhaustion [] Unable to work [] Unable to attend buddhism [] Unable to walk/stand [] Unable to read [] Unable to drive [] Unable to eat/drink [] Unable to sleep [] Unable to be with family [] Patient intubated [] Other: Summary SA was not completed since doctor arrived soon after cone chocolate dipper. Time spent with patient 5m
--- NOTE | 2021-01-30 11:04 | PC.NURSE ---
I reported the high bp to the nurse 171/113 179/107
[2021-01-30 11:39] LABS: Glucose Point of Care 157 mg/dL (70-110)
--- NOTE | 2021-01-30 11:53 | P.CONIM_ITS ---
Providers/Reason For Consult Consulting Physician/Specialty*: Tej Burgos D.P.M. Reason for Consult*: Cellulitis, diabetic foot infection with osteomyelitis right foot Attending Physician: Ant Manley MD Primary Care Provider: DAVID Pack History of Present Illness History of Present Illness Roney Anthony is a 50 year old male presents to emergency department with right diabetic foot infection. States that the infection and wound have been present for several weeks however Friday last week there was a increase in swelling, redness and drainage. Reports foul odor. Over the past 2 to 3 days he is felt ill, had fever and chills. Patient is noninsulin-dependent diabetic. No antibiotics prior to admission for this wound. Review of Systems General: Reports: 10 or more systems reviewed and unremarkable except in HPI and below Const: Denies: fever(s) or chills Card: Denies: chest pain or palpitations Resp: Denies: productive cough GI: Denies: abdominal pain, nausea or vomiting : Denies: flank pain Musc: Reports: extremity swelling, joint pain, joint stiffness, limited range of motion and deformity Skin/Breast: Reports: erythema, skin swelling, sores, nail changes and change in hair; Denies: rash Neuro: Reports: numbness in extremities, sensory changes and difficulty walking Psych: Denies: suicidal ideation Bowen/Lymph: Denies: easy bruising Meds/Allergies Home Medications and Allergies Home Medications Medication Instructions Recorded Confirmed Last Taken Type saw palmetto 450 mg capsule 450 mg PO DAILY cap 12/01/19 01/29/21 01/29/21 History semaglutide 1 mg/dose (4 mg/3 mL) 0.5 mg SUBCUT .Once a week #3 ml 12/04/20 01/29/21 01/26/21 Rx subcutaneous pen injector rosuvastatin 10 mg tablet 10 mg PO DAILY #90 tab 12/11/20 01/29/21 01/29/21 Rx spironolactone 50 mg tablet 50 mg PO DAILY #90 tab 12/11/20 01/29/21 01/29/21 Rx portable oxygen (Inogen) #1 ea 12/27/20 01/29/21 Unknown Rx concentrator bumetanide 0.5 mg tablet 0.5 mg PO BID #20 tab 01/29/21 01/29/21 01/29/21 Rx celecoxib 100 mg PO BID 01/29/21 01/29/21 01/29/21 History clonidine HCl 0.1 mg PO BEDTIME 01/29/21 01/29/21 01/28/21 History clonidine HCl 0.2 mg PO DIRECTED 01/29/21 01/29/21 01/29/21 History furosemide 40 mg PO DAILY 01/29/21 01/29/21 01/29/21 History hydralazine 100 mg PO TID 01/29/21 01/29/21 01/29/21 History lisinopril 40 mg PO BEDTIME 01/29/21 01/29/21 01/28/21 History nifedipine 60 mg PO BEDTIME 01/29/21 01/29/21 01/28/21 History potassium chloride 20 meq PO DAILY 01/29/21 01/29/21 01/29/21 History Allergies Allergy/AdvReac Type Severity Reaction Status Date / Time Penicillins Allergy Unknown Verified 01/29/21 08:41 Current Medications Current Medications Generic Name Dose Route Start Last Admin Trade Name Debra PRN Reason Stop Dose Admin Atorvastatin Calcium 40 mg 01/30/21 09:00 01/30/21 08:21 Atorvastatin 40 Mg Tablet PO 40 mg DAILY SONIA Administration Bumetanide 0.5 mg 01/30/21 09:00 01/30/21 08:21 Bumetanide 1 Mg Tablet PO 0.5 mg BID SONIA Administration Cefepime HCl 2,000 mg/ Sodium 50 mls @ 100 mls/hr 01/30/21 04:00 01/30/21 04:52 Chloride IV Infused Q12H SONIA Infusion Protocol Vancomycin HCl 2,000 mg/ 500 mls @ 250 mls/hr 01/30/21 06:00 01/30/21 09:50 Sodium Chloride IV Infused Q12H SONIA Infusion Insulin Aspart 0 unit 01/30/21 08:00 01/30/21 08:21 Insulin Aspart 100 Unit/1 Ml SUBCUT 6 unit WM&BEDTIME SONIA Administration Protocol Metronidazole 500 mg 01/30/21 09:00 01/30/21 08:21 Metronidazole 500 Mg Tablet PO 500 mg TID SONIA Administration Pantoprazole Sodium 40 mg 01/30/21 09:00 01/30/21 08:[address] 40 Mg Tablet PO 40 mg DAILY SONIA Administration Spironolactone 50 mg 01/30/21 09:00 01/30/21 08:21 Spironolactone 25 Mg Tablet PO 50 mg DAILY SONIA Administration PFSH Acute PFSH: Medical History Diabetes Edema Neuropathy Pneumonia due to COVID-19 virus Sleep apnea Family History Other CAD (coronary artery disease) Hypertension Vitals/I&O/Wt Last Vital Signs Temp 97.8 F 01/30/21 11:03 Pulse 69 01/30/21 11:03 Resp 18 01/30/21 11:03 BP 179/107 01/30/21 11:04 Pulse Ox 95 01/30/21 11:03 01/29/21 01/30/21 01/30/21 22:59 06:59 14:59 Intake Total 300 / 300 620 / 620 Balance 300 / 300 620 / 620 Weight last 48 hrs Weight 266 lb 6.4 oz Weight 269 lb Physical Exam Narrative: EXAM NARRATIVE: GENERAL: Patient is alert and oriented ?3 and in no acute distress. The following is a focused bilateral lower extremity exam. VASCULAR: Dorsalis pedis palpable +2 bilaterally, posterior tibial arteries palpable +2 bilaterally. Capillary refill time less than 3 seconds to the distal hallux bilaterally. Calf is supple and nontender proximally and distally. Focal edema to the right hallux and edema to the right foot and leg. NEUROLOGICAL: Protective sensation intact 0/10 sites, tested with [place] Misti monofilament to bilateral feet. DERMATOLOGICAL: Full-thickness wound probes to bone at the right dorsal forefoot. Wound is expansive it begins at the base of the right hallux extends to the base of the second and third toes and across the dorsum of the dorsal medial forefoot wound has boggy base with fibrosis, devitalized soft tissue and probes to the first metatarsophalangeal joint. He also has an island at the instep x2 of devitalized tissue. No soft tissue crepitus appreciated. Cellulitis to the right foot streaking to the proximal ankle. Wound measures 7 cm x 5 cm x 0.5 cm. MUSCULOSKELETAL: No pain with posterior calf squeeze bilaterally. No pain with palpation or debridement of the right foot wound secondary to neuropathy. Data Micro: Micro: Microbiology 01/29/21 21:15 Blood Culture - Pr eliminary Blood SPECIMEN [facility] 01/29/21 21:14 Blood Culture - Pr eliminary Blood SPECIMEN [facility] A&P Assessment and plan (1) Osteomyelitis of toe of right foot: Status: Acute (2) Cellulitis: Status: Acute Qualifiers: Site of cellulitis: other site Qualified Code(s): L03.818 - Cellulitis of other sites (3) Diabetes mellitus with polyneuropathy: Status: Acute Qualifiers: Diabetes mellitus type: type 2 Qualified Code(s): E11.42 - Type 2 diabetes mellitus with diabetic polyneuropathy Mr. Anthony 50-year-old diabetic male with cellulitis and wound probes to bone right foot. On admission white blood cell count 13.7 erythrocyte sedimentation rate greater than 120 mm/h, C-reactive protein 163.1 mg/L. X-ray and CT scan concerning for early osteomyelitis of the right first metatarsal head and possible septic joint at first metatarsophalangeal joint right foot. Last A1c 7.4 on November 30, 2020. On exam patient has loss of protective station at his feet, he has +2 palpable pulses for both dorsalis pedis and posterior tibial arteries. He has a full- thickness wound probing to bone, wound is expansive unfortunately it extends across the dorsum of the right forefoot with significant devitalized soft ti ssue. I discussed laboratory, imaging and clinical findings with the patient at length. I recommended incision and debridement down to and including bone with bone biopsy to help guide long-term IV antibiotic therapy. Patient to be n.p.o. after midnight tonight in preparation for surgical debridement tomorrow at noon this is the next available opportunity the OR has available. Dressing Betadine wet-to-dry applied today. Will continue empiric IV antibiotics and may narrow once bone culture yields further information. I would anticipate PICC line, long-term IV antibiotics minimum 6 weeks, wound VAC and wound care clinic follow-up after this hospitalization. Coding Level of Care Code Acute Chief [employer] for [facility] Diagnoses Osteomyelitis of toe of right foot M86.9 Cellulitis L03.818 Site of cellulitis: other site Diabetes mellitus with polyneuropathy E11.42 Diabetes mellitus type: type 2
[2021-01-30] MEDS: enoxaparin 80 mg/0.8 mL Syringe SUBCUT (12:09)
--- NOTE | 2021-01-30 16:37 | P.PN_ITS ---
Subjective Subjective: Interval history: Patient was seen this morning, he tells me that his swelling in his foot has gone down, no fevers, chills, nausea, vomiting, Vitals/I&O/Wt Last Vital Signs Temp 97.9 F 01/30/21 15:09 Pulse 73 01/30/21 15:09 Resp 14 01/30/21 15:09 BP 176/91 01/30/21 15:09 Pulse Ox 95 01/30/21 15:09 01/30/21 01/30/21 01/30/21 06:59 14:59 22:59 Intake Total 300 / 300 740 / 740 Balance 300 / 300 740 / 740 Weight last 48 hrs Weight 120.837 kg Weight 122.016 kg Physical Exam Const: COMMON NORMALS: no acute distress and patient oriented x3 Resp: COMMON NORMALS: normal respiratory effort, No retractions, No use of accessory muscles and clear to auscultation bilaterally AUSCULTATION: clear to auscultation bilaterally Cardio: COMMON NORMALS: regular rate, regular rhythm, S1 normal heart sound present and S2 normal heart sound present RATE: regular rate RHYTHM: regular rhythm HEART SOUNDS: S1 normal heart sound present and S2 normal heart sound present GI: COMMON NORMALS: Normal to inspection, nondistended, normoactive bowel sounds present, Soft to palpation, non-tender, No hepatosplenomegaly present, no masses and no bruits PALPATION: Yes Soft to palpation and Yes No hepatosplenomegaly present Extremity: NARRATIVE EXTREMITY EXAM: Right foot, great toe, significant swelling, erythema, extending along the metatarsal, up to the fourth digit, wrapped in bandage, Neuro: COMMON NORMALS: patient oriented x3 Psych: COMMON NORMALS: mental status grossly normal Data : 01/30/21 05:04 01/30/21 05:04 Micro: Microbiology 01/29/21 21:15 Blood Culture - Preliminary Blood SPECIMEN COLLECTED 01/29/21 21:14 Blood Culture - Preliminary Blood SPECIMEN COLLECTED A&P Assessment and plan (1) Osteomyelitis of toe of right foot: Status: Acute (2) Cellulitis: Status: Acute Qualifiers: Site of cellulitis: other site Qualified Code(s): L03.818 - Cellulitis of other sites (3) Saphenous vein clot: Status: Acute Additional A&P Information Presenting today with subacute swelling of the right foot, with CT suggestive of cellulitis without any underlying abscess, diffuse subcutaneous emphysema overlying the first metatarsophalangeal joint, raising concern also for underly ing joint space infection. Erosive changes over the first phalanx which may be related to underlying osteomyelitis. [facility] Start empiric antibiotic coverage with cefepime, vancomycin and p.o. Flagyl for additional anaerobic coverage ESR greater than 120, CRP 163 Clinically appearing to be euvolemic, does not need additional IV fluids at this time. Blood culture taken prior to initiation of antibiotics. We will do FE Podiatry consult Has a extensive nonocclusive thrombus of the right greater saphenous vein from abductor hiatus to ankle, will treat like a DVT, start on therapeutic Lovenox Diabetes mellitus: Insulin sliding scale while remains inpatient. Hypertension: Continue home doses of hydralazine, lisinopril, nifedipine and spironolactone. Sleep apnea: Continue BiPAP use as needed, currently saturating 98% on room air. DVT prophylaxis: Lovenox Full code. Attestations Medical Necessity Statement*: Requires hospitalization for osteomyelitis of right foot Coding Level of Care Code Acute University Tutor for [facility] Diagnoses Osteomyelitis of toe of right foot M86.9 Cellulitis L03.818 Site of cellulitis: other site Saphenous vein clot I82.819
[2021-01-30 17:01] LABS: Glucose Point of Care 142 mg/dL (70-110)
--- NOTE | 2021-01-30 20:02 | PC.NURSE ---
Addendum entered by Lakeisha Stanley RN 01/30/21 20:02: Questioned lovenox order due to pending surgery in the morning. Original Note: Spoke with about 120mg Lovenox order. Orders received to give Lovenox tonight.
[2021-01-30] MEDS: lisinopril 20 mg Tablet 40 MG PO (20:43)
[2021-01-30] MEDS: enoxaparin 120 mg/0.8 mL Syringe SUBCUT (20:43)
[2021-01-30] MEDS: NIFEdipine ER (24 hr) 30 mg Tablet 60 MG PO (20:44)
[2021-01-30] MEDS: cloNIDine 0.1 mg Tablet PO (20:44)
[2021-01-30 21:04] LABS: Glucose Point of Care 159 mg/dL (70-110)
--- NOTE | 2021-01-30 22:40 | PC.NURSE ---
Spoke with about giving 120mg of Lovenox for clarification and he gave orders to give tonight and tomorrow's dose of Lovenox.
[2021-01-31] VITALS (15 sets, daily range): BP systolic 119–183; BP diastolic 74–108; PULSE 66–100; RESP 12–19; TEMP 36.2–37.2; O2SAT 90–97
[2021-01-31] MEDS: hyDRALAzine 50 mg Tablet PO ×4 (00:37→20:34)
[2021-01-31] MEDS: cefepime 2,000 MG in sodium chloride 0.9% (plus) 50 ML 100 MG IV ×2 (03:50→16:59)
[2021-01-31 05:40] LABS: Basophils # 0.1 10^3/uL (0.0-0.1); Basophils % 0.9 %; Eosinophils # 0.4 10^3/uL (0.0-0.8); Eosinophils % 3.8 %; Hematocrit 33.6 % (42.0-52.0); Lymphocytes # 1.8 10^3/uL (0.8-4.8); Lymphocytes % 17.7 %; Mean Corpuscular HGB Conc 32.7 g/dL (30.0-36.0); Mean Corpuscular Hemoglobin 28.9 pg (28.0-34.0); Mean Corpuscular Volume 88.4 fl (80-94); Mean Platelet Volume 9.6 fL (7.4-10.4); Monocytes # 0.6 10^3/uL (0.2-0.9); Monocytes % 6.3 %; Neutrophils # 7.08 10^3/uL (1.8-7.7); Neutrophils % 70.6 %; Nucleated Red Blood Cells % 0 %; Platelet Count 407 10^3/cmm (130-400); Red Cell Distribution Width 12.9 % (12.1-15.1)
--- NOTE | 2021-01-31 06:00 | USCV_ITS ---
Roney Anthony Age: 50 Gender: M : 1970 Exam Date: 01/31/2021 10:24 Ordering Phys: Ant Manley MD Technologist: Mariangel Bacon Maintenance Plumber Exam Location: [facility] [place]_ Indication: DM ULCER, EVAL FOR FLOW RIGHT LEFT Brachial 151.00 mmHg Brachial 148.00 mmHg Pressure (mmHg) Waveform Pressure (mmHg) Waveform 154.00 BATTERY BUILDER 189.00 174.00 DPA 192.00 1.15 Ankle/Brachial Index 1.25 124.00 Pre-Exercise Toe Pressure 112.00 0.82 Pre-Exercise Toe/Brachial Index 0.74 FINDINGS Normal resting ABIs bilaterally Normal resting TBIs bilaterally CONCLUSIONS No evidence of any significant arterial obstruction, based on the above findings. Dr Jennifer Harp MD [facility] (Electronically Signed) Final Date: 01 February 2021 15:41 S
[2021-01-31 06:04] LABS: Alanine Aminotransferase 40 U/L (0-41); Albumin Level 3.1 g/dL (3.5-5.2); Alkaline Phosphatase 134 IU/L (40-130); Anion Gap 15.1 (5-19); Aspartate Amino Transferase 32 U/L (0-40); Blood Urea Nitrogen 14 mg/dL (6-20); Calcium 8.8 mg/dL (8.5-10.5); Carbon Dioxide 25 mmol/L (22-29); Chloride 104 mmol/L (98-107); Globulin 3.9 g/dL (1.3-4.6); Glomerular Filtration Rate 70.6 mL/min (90-130); Glucose 208 mg/dL (65-115); Osmolality Calculated 297 mOsm/kg (285-295); Potassium 4.1 mmol/L (3.5-5.1); Sodium 140 mmol/L (136-145); Total Bilirubin 0.3 mg/dL (0.15-1.2)
[2021-01-31 06:08] LABS: Estmated Average Glucose 140; Hemoglobin A1C 6.5 % (4.0-6.0)
[2021-01-31] MEDS: amlodipine 10 mg Tablet PO (06:18)
[2021-01-31 06:32] LABS: Glucose Point of Care 219 mg/dL (70-110)
--- NOTE | 2021-01-31 06:51 | P.HPUD_ITS ---
Surgery/Procedure H&P Update DATE OF PROCEDURE: January 31, 2021 DATE H&P PERFORMED: 01/30/21 H&P UPDATE INFORMATION: I have reviewed H&P completed within last 30 days, I have examined patient prior to procedure, No changes to prior documentation and H&P is in [facility] EMR on date indicated PREOP DIAGNOSIS: Diabetic foot infection right foot PLANNED PROCEDURE: Operation Date: 01/31/21 07:30 Proposed Procedures p Incision And Drainage right(Right) - Tej Burgos DPM
--- NOTE | 2021-01-31 07:00 | P.ANESASSM_ITS ---
Pre-Anesthetic Assessment Pre-Anesthetic Assessment: Height/Weight: Height 1.75 m Weight 120.837 kg Temp Pulse Resp BP Pulse Ox 97.5 F L 78 18 164/98 95 01/31/21 06:52 01/31/21 06:52 01/31/21 06:52 01/31/21 06:52 01/31/21 06:52 Preop Diagnosis: Diabetic foot infection right foot Proposed Procedure: Operation Date: 01/31/21 07:30 Proposed Procedures p Incision And Drainage right(Right) - Tej Burgos, DPM Was Beta Fito taken within 24 hours: N/A Was Clonidine taken within 24 hours: N/A Last intake: Intake Last Liquid Date 01/30/21 Last Liquid Time 00:00 Last Solid Date 01/30/21 Last Solid Time 23:30 Social: Social History: No alcohol and No tobacco Exam: Pre-Anes Outpt Exam: alert, oriented x 3, clear to auscultation bilatera lly and regular rate & rhythm Airway: Submandibular: WNL Cervical ROM: WNL MP: 3 Dentition: Full Pulmonary: Pulmonary: Sleep apnea CV/HEM: CV/HEM: HTN Metabolic: Metabolic: DM (Poorly controlled), Hyperlipidemia and Morbid obesity Neuropsych: Neuropsych: Neuropathy Anesthetic Plan: ASA status: 3 Anesthesia: Choice Risk of > 500 ml blood loss (7ml/kg in children): No Meds/Allergies Current Medications: Current Medications Generic Name Dose Route Start Last Admin Trade Name Freq PRN Reason Stop Dose Admin Atorvastatin Calci um 40 mg 01/30/21 09:00 01/30/21 08:21 Atorvastatin 40 Mg Tablet PO 40 mg DAILY SONIA Administration Bumetanide 0.5 mg 01/30/21 09:00 01/30/21 17:41 Bumetanide 1 Mg Tablet PO 0.5 mg BID SONIA Administration Clonidine HCl 0.1 mg 01/30/21 21:00 01/30/21 20:44 Clonidine 0.1 Mg Tablet PO 0.1 mg BEDTIME SONIA Administration Enoxaparin Sodium 120 mg 01/30/21 20:00 01/30/21 20:43 Enoxaparin 120 M g/0.8 Ml Syringe SUBCUT 120 mg Q12H SONIA Administration Hydralazine HCl 50 mg 01/31/21 00:15 01/31/21 00:37 Hydralazine 50 M g Tablet PO 50 mg TID SONIA Administration Cefepime HCl 2,000 mg/ Sodium 50 mls @ 100 mls/ hr 01/30/21 04:00 01/31/21 04:22 Chloride IV Infused Q12H SONIA Infusion Protocol Vancomycin HCl 2,0 00 mg/ 500 mls @ 250 mls /hr 01/30/21 06:00 01/31/21 05:46 Sodium Chloride IV 250 mls/hr Q12H SONIA Administration Insulin Aspart 0 unit 01/30/21 08:00 01/30/21 21:57 Insulin Aspart 1 00 Unit/1 Ml SUBCUT 6 unit WM&BEDTIME SONIA Administration Protocol Lisinopril 40 mg 01/30/21 21:00 01/30/21 20:43 Lisinopril 20 Mg Tablet PO 40 mg BEDTIME SONIA Administration Metronidazole 500 mg 01/30/21 09:00 01/30/21 20:43 Metronidazole 50 0 Mg Tablet PO 500 mg TID SONIA Administration Nifedipine 60 mg 01/30/21 21:00 01/30/21 20:44 Nifedipine Er (2 4 Hr) 30 Mg Tablet PO 60 mg BEDTIME SONIA Administration Pantoprazole Sodiu m 40 mg 01/30/21 09:00 01/30/21 08:[address] 40 Mg Tablet PO 40 mg DAILY SONIA Administration Spironolactone 50 mg 01/30/21 09:00 01/30/21 08:21 Spironolactone 2 5 Mg Tablet PO 50 mg DAILY SONIA Administration PFSH Anesthesia PFSH: Medical History Diabetes Edema Neuropathy Pneumonia due to COVID-19 virus Sleep apnea Family History Other CAD (coronary artery disease) Hypertension Data Anesthesia CBC & Chem 7: 01/31/21 05:20 01/31/21 05:20 Other Labs: Laboratory Results - last 48 hr 01/29/21 01/29/21 01/29/21 20:48 21:14 21:14 WBC 13.7 H RBC 3.93 L Hgb 11.4 L Hct 35.0 L MCV 89.1 MCH 29.0 MCHC 32.6 RDW 13.1 Plt Count 442 H MPV 9.7 Neut % (Auto) 68.9 Lymph % (Auto) 18.6 [place] % (Auto) 6.6 Eos % (Auto) 4.5 Baso % (Auto) 0.7 Neut # (Auto) 9.45 H Lymph # (Auto) 2.6 [place] # (Auto) 0.9 Eos # (Auto) 0.6 Baso # (Auto) 0.1 Nucleated RBC % (auto) 0 Nucleated RBCs # 0.0 ESR Sodium 141 Potassium 4.2 Chloride 103 Carbon Dioxide 25 Anion Gap 17.2 BUN 13 Creatinine 1.1 GFR Calculation 70.6 L Glucose 128 H POC Glucose 131 H Estimat Average Glucose Hemoglobin A1c Calculated Osmolality 294 Lactate Calcium 9.4 Total Bilirubin 0.5 AST 19 ALT 28 Alkaline Phosphatase 143 H C-Reactive Protein Total Protein 7.8 Albumin 3.6 Globulin 4.2 Procalcitonin 01/29/21 01/30/21 01/30/21 21:14 05:04 05:04 WBC 10.3 H RBC 3.65 L Hgb 10.5 L Hct 32.6 L MCV 89.3 MCH 28.8 MCHC 32.2 RDW 13.0 Plt Count 398 MPV 9.8 Neut % (Auto) 69.4 Lymph % (Auto) 17.1 [place] % (Auto) 6.8 Eos % (Auto) 5.3 Baso % (Auto) 0.7 Neut # (Auto) 7.15 Lymph # (Auto) 1.8 [place] # (Auto) 0.7 Eos # (Auto) 0.6 Baso # (Auto) 0.1 Nucleated RBC % (auto) 0 Nucleated RBCs # 0.0 ESR > 120 H Sodium Potassium Chloride Carbon Dioxide Anion Gap BUN Creatinine GFR Calculation Glucose POC Glucose Estimat Average Glucose Hemoglobin A1c Calculated Osmolality Lactate 1.1 Calcium Total Bilirubin AST ALT Alkaline Phosphatase C-Reactive Protein Total Protein Albumin Globulin Procalcitonin 01/30/21 01/30/21 01/30/21 05:04 05:04 06:06 WBC RBC Hgb Hct MCV MCH MCHC RDW Plt Count MPV Neut % (Auto) Lymph % (Auto) [place] % (Auto) Eos % (Auto) Baso % (Auto) Neut # (Auto) Lymph # (Auto) [place] # (Auto) Eos # (Auto) Baso # (Auto) Nucleated RBC % (auto) Nucleated RBCs # ESR Sodium 143 Potassium 4.1 Chloride 106 Carbon Dioxide 25 Anion Gap 16.1 BUN 13 Creatinine 0.9 GFR Calculation 89.0 L Glucose 155 H POC Glucose 160 H Estimat Average Glucose Hemoglobin A1c Calculated Osmolality 299 H Lactate Calcium 9.0 Total Bilirubin 0.3 AST 28 ALT 29 Alkaline Phosphatase 120 C-Reactive Protein 163.1 H Total Protein 6.8 Albumin 3.1 L Globulin 3.7 Procalcitonin 0.21 01/30/21 01/30/21 01/30/21 10:56 16:47 21:00 WBC RBC Hgb Hct MCV MCH MCHC RDW Plt Count MPV Neut % (Auto) Lymph % (Auto) [place] % (Auto) Eos % (Auto) Baso % (Auto) Neut # (Auto) Lymph # (Auto) [place] # (Auto) Eos # (Auto) Baso # (Auto) Nucleated RBC % (auto) Nucleated RBCs # ESR Sodium Potassium Chloride Carbon Dioxide Anion Gap BUN Creatinine GFR Calculation Glucose POC Glucose 157 H 142 H 159 H Estimat Average Glucose Hemoglobin A1c Calculated Osmolality Lactate Calcium Total Bilirubin AST ALT Alkaline Phosphatase C-Reactive Protein Total Protein Albumin Globulin Procalcitonin 01/31/21 01/31/21 01/31/21 05:20 05:20 05:20 WBC 10.0 RBC 3.80 L Hgb 11.0 L Hct 33.6 L MCV 88.4 MCH 28.9 MCHC 32.7 RDW 12.9 Plt Count 407 H MPV 9.6 Neut % (Auto) 70.6 Lymph % (Auto) 17.7 [place] % (Auto) 6.3 Eos % (Auto) 3.8 Baso % (Auto) 0.9 Neut # (Auto) 7.08 Lymph # (Auto) 1.8 [place] # (Auto) 0.6 Eos # (Auto) 0.4 Baso # (Auto) 0.1 Nucleated RBC % (auto) 0 Nucleated RBCs # 0.0 ESR Sodium 140 Potassium 4.1 Chloride 104 Carbon Dioxide 25 Anion Gap 15.1 BUN 14 Creatinine 1.1 GFR Calculation 70.6 L Glucose 208 H POC Glucose Estimat Average Glucose 140 Hemoglobin A1c 6.5 H Calculated Osmolality 297 H Lactate Calcium 8.8 Total Bilirubin 0.3 AST 32 ALT 40 Alkaline Phosphatase 134 H C-Reactive Protein Total Protein 7.0 Albumin 3.1 L Globulin 3.9 Procalcitonin 01/31/21 06:26 WBC RBC Hgb Hct MCV MCH MCHC RDW Plt Count MPV Neut % (Auto) Lymph % (Auto) [place] % (Auto) Eos % (Auto) Baso % (Auto) Neut # (Auto) Lymph # (Auto) [place] # (Auto) Eos # (Auto) Baso # (Auto) Nucleated RBC % (auto) Nucleated RBCs # ESR Sodium Potassium Chloride Carbon Dioxide Anion Gap BUN Creatinine GFR Calculation Glucose POC Glucose 219 H Estimat Average Glucose Hemoglobin A1c Calculated Osmolality Lactate Calcium Total Bilirubin AST ALT Alkaline Phosphatase C-Reactive Protein Total Protein Albumin Globulin Procalcitonin Micro: Microbiology 01/29/21 21:15 Blood Culture - Preliminary Blood NEGATIVE TO DATE 01/29/21 21:14 Blood Culture - Preliminary Blood NEGATIVE TO DATE Cardiac Studies: No Data to Display
--- NOTE | 2021-01-31 07:42 | P.OP_ITS ---
Operative Report Date of procedure: January 31, 2021 Pre-op Diagnosis: Diabetic foot infection right foot Post-op diagnosis: same Post-op Findings: Devitalized soft tissue down to and including bone. Procedure Done: Incision and debridement of devitalized soft tissue, epidermis, dermis, subcutaneous tissue, muscle tendon and bone right foot. Right foot bone biopsy. Implants: None Specimens removed/disposition: Deep soft tissue cultures sent to microbiology for Gram stain and culture right foot wound as well as first metatarsal bone biopsy sent to microbiology for Gram stain and culture. Pathology: none sent Surgeon: Tej Burgos DPM Certified Medical Coding Specialist: Aviva Anesthesia: MAC Estimated blood loss: 10 mL Tourniquet time: 13 minutes IV fluids: None Urine output: None Complications: None Findings: Devitalized soft tissue with purulence in the first intermetatarsal space and first metatarsal phalangeal joint. Condition: stable Disposition: PACU Brief History: Patient has a diabetic foot infection, heavy purulence multiple wounds across the right foot. Requiring surgical debridement and long-term antibiotics. Recommended debridement as her initial course of therapy combined with IV antibiotics. Patient is agreeable. Risks include pain, bleeding, numbness, persistent infection, ascending infection, loss of support structures, altered mechanics, need for higher level of amputation, long-term antibiotic therapies, wound care modalities and offloading. Patient is agreeable wishes to proceed. Has been n.p.o. since midnight. Covid screening pending. Informed consent signed by patient myself I initialed his right foot no guarantees written, expressed or implied. Patient wishes to proceed Procedure: Under mild sedation the patient was brought to the operating room and remained on the gurney in supine position. A timeout was performed. Anesthesia was then administered by the anesthesia service. Local anesthesia injected by myself consisting of 30 cc of 0.5% Marcaine plain and a right ankle block fashion. Well-padded pneumatic tourniquet applied to the right ankle. Right lower extremity was scrubbed, prepped and draped utilizing normal aseptic technique. There was no Esmarch bandage utilized. Right foot was elevated and the tourniquet inflated to 250 mmHg. Attention was first directed to the dorsal aspect of the right forefoot where a large wound that tracked down to bone was appreciated. Post sharp debridement the wound measured 5 cm x 6 cm x 0.6 cm and probes deep into the first intermetatarsal space from dorsal to the plantar foot it exited a wound subfirst metatarsal head. This was sharply debrided of epidermis, dermis, devitalized subcutaneous tissue, fat, muscle, deep fascia and joint capsule. The first metatarsophalangeal joint was accessed and flushed with copious amounts of sterile saline solution. Deep soft tissue cultures were taken in the first intermetatarsal space and this was sent to microbiology for Gram stain and culture. Attention was then directed to the first metatarsal head where a bone biopsy was taken utilizing a fresh rongeur. This first metatarsal head bone biopsy was sent to microbiology for Gram stain and culture to help guide antibiotic therapy long-term. There were additional wounds both at the plantar foot and at the instep of the foot. Wound subfirst metatarsal head measured 1 cm x 1 cm x 1 cm post debridement, sharp debridement was performed down to muscle and fat layer. Additional wound at the plantar instep at the plantar portion of the calcaneus this measured 3 cm x 2 cm x 0.6 cm post debridement and was sharply debrided of devitalized epidermis, dermis, subcutaneous tissue and fat layer. Wounds were then once again flushed with copious amounts of sterile saline solution. They were dressed with Dakin solution half percent wet-to-dry. Tourniquet was deflated and a prompt hyperemic response was noted to the distal digits of the right foot. Patient tolerated the procedure and anesthesia well and was transferred to the PACU with vital signs stable and vascular status intact. Following a period of postoperative monitoring he will be transferred back to the floor. Recommend continuation of empiric IV antibiotics, may narrow once bone culture yields further results. Recommend nursing staff to perform Dakin's wet-to-dry dressing changes every 8 hours Will continue to follow this patient and monitor daily progress should he show wound healing potential would likely perform a repeat surgical debridement and wound VAC application this Friday morning Would expect/plan for discharge home eventually with PICC line with plans for minimum 6 weeks IV antibiotics and wound care follow-up, patient will also need home health.
--- NOTE | 2021-01-31 07:46 | P.PCN_ITS ---
PACU note PACU note: VSS, Good respiratory effort, report to GROUND CONTROL APPROACH TECHNICIAN Post-Anesthesia Exam: awake
--- NOTE | 2021-01-31 07:46 | PM.PACU ---
PACU note PACU note: VSS, Good respiratory effort, report to MANAGER TRADING Post-Anesthesia Exam: awake
--- NOTE | 2021-01-31 08:22 | XR_ITS ---
WS: [id number] Right foot, 3 views, 01/31/2021 Clinical Data: post op I D with bone biopsy 1st met head dorsally Comparison: Right foot, 01/29/2021. Findings: There is cystic change at the base of the right first distal phalanx. There is cystic change at the b ase of the right first proximal phalanx. Soft tissue swelling about the foot is present especially adjacent to the right first metatarsal and phalanges. A postoperative dressing is adjacent to the right first metatarsal and phalanges. No other changes compared to the prior x-ray are seen. XR/XR foot RT min 3V* [id number] Impression: 1. Soft tissue swelling adjacent to the right first metatarsal and phalanges. 2. Cystic and erosive changes of the bases of the right first toe proximal and distal phalanges.
[2021-01-31] MEDS: atorvastatin 40 mg Tablet PO (08:25)
[2021-01-31] MEDS: enoxaparin 120 mg/0.8 mL Syringe SUBCUT ×2 (08:25→20:32)
[2021-01-31] MEDS: spironolactone 25 mg Tablet 50 MG PO (08:26)
[2021-01-31] MEDS: metroNIDAZOLE 500 MG Tablet PO ×3 (08:26→21:17)
[2021-01-31] MEDS: pantoprazole DR 40 mg Tablet PO (08:26)
[2021-01-31] MEDS: bumetanide 1 mg Tablet 0.5 MG PO ×2 (08:26→17:58)
[2021-01-31 12:47] LABS: Glucose Point of Care 165 mg/dL (70-110)
[2021-01-31] MEDS: metoprolol tartrate 25 mg Tablet PO ×2 (13:50→20:33)
[2021-01-31] MEDS: erythromycin Op Oint 1 gm 1 APPLIC EYE-RIGHT ×3 (13:51→21:17)
--- NOTE | 2021-01-31 14:00 | ANE.PACU2 ---
Inpatient post-anesthesia follow up: Airway intact: Yes Vital signs: Temperature 98.2 F Pulse Rate [Monito r] 85 Pulse Rate 91 Respiratory Rate 17 Blood Pressure [Ri ght Arm] 124/83 Blood Pressure 150/88 Pulse Oximetry 97 Oxygen Delivery Me thod Room Air Oxygen Flow Rate 8 Fraction of Inspir ed Oxygen Hydration adequate: Yes Nausea and vomiting: No Pain level: 1 Mental status: Baseline
[2021-01-31 14:01] LABS: Coronavirus Test Green County Not Detected
--- NOTE | 2021-01-31 15:51 | PM.PN ---
Subjective Subjective: Interval history: Patient was seen this morning, after his surgical intervention, I spoke to Dr. Burgos, he has extensive infection down to the level of the joint spaces, and to the bone, will likely require repeat washout and debridement in the next few days, with long-term IV antibiotics, currently he tells me is doing fine, is complaining of some right eye discharge Vitals/I&O/Wt Last Vital Signs Temp 98.2 F 01/31/21 15:28 Pulse 79 01/31/21 15:28 Resp 17 01/31/21 15:28 BP 179/98 01/31/21 15:28 Pulse Ox 92 01/31/21 15:28 01/31/21 01/31/21 01/31/21 06:59 14:59 22:59 Intake Total 50 / 1460 980 / 980 Output Total 10 / Balance 50 / 1460 970 / 970 Weight last 48 hrs Weight 120.837 kg Physical Exam Const: COMMON NORMALS: no acute distress and patient oriented x3 Resp: COMMON NORMALS: normal respiratory effort, No retractions, No use of accessory muscles and clear to auscultation bilaterally AUSCULTATION: clear to auscultation bilaterally Cardio: COMMON NORMALS: regular rate, regular rhythm, S1 normal heart sound present and S2 normal heart sound present RATE: regular rate RHYTHM: regular rhythm HEART SOUNDS: S1 normal heart sound present and S2 normal heart sound present GI: COMMON NORMALS: Normal to inspection, nondistended, normoactive bowel sounds present, Soft to palpation, non-tender, No hepatosplenomegaly present, no masses and no bruits PALPATION: Yes Soft to palpation and Yes No hepatosplenomegaly present Extremity: OTHER: Right lower extremity wrapped and bandaged Neuro: COMMON NORMALS: patient oriented x3 Psych: COMMON NORMALS: mental status grossly normal Data : 01/31/21 05:20 01/31/21 05:20 Micro: Microbiology 01/29/21 21:15 Blood Culture - Preliminary Blood NEGATIVE TO DATE 01/29/21 21:14 Blood Culture - Preliminary Blood NEGATIVE TO DATE A&P Assessment and plan (1) Osteomyelitis of toe of right foot: Status: Acute (2) Cellulitis: Status: Acute Qualifiers: Site of cellulitis: other site Qualified Code(s): L03.818 - Cellulitis of other sites (3) Saphenous vein clot: Status: Acute Additional A&P Information subacute swelling of the right foot, with CT suggestive of cellulitis without any underlying abscess, diffuse subcutaneous emphysema overlying the first metatarsophalangeal joint, raising concern also for underlying joint space infection. Erosive changes over the first phalanx which may be related to underlying osteomyelitis. Status post Incision and debridement of devitalized soft tissue, epidermis, dermis, subcutaneous tissue, muscle tendon and bone right foot. Right foot bone biopsy. Possible repeat debridement in the next few days Start empiric antibiotic coverage with cefepime, vancomycin and p.o. Flagyl for additional anaerobic coverage ESR greater than 120, CRP 163 Clinically appearing to be euvolemic, does not need additional IV fluids at this time. Follow blood cultures, surgical cultures We will do FE Podiatry consult Likely will require PICC line placement with long-term IV antibiotics, wound care Has a extensive nonocclusive thrombus of the right greater saphenous vein from abductor hiatus to ankle, will manage as likely DVT given how extensive, on therapeutic Lovenox Diabetes mellitus: Insulin sliding scale while remains inpatient. Hypertension: Continue home doses of hydralazine, lisinopril, nifedipine and spironolactone, increase clonidine, add chlorthalidone Sleep apnea: Continue BiPAP use as needed, currently saturating 98% on room air. DVT prophylaxis: Lovenox Full code. Attestations Medical Necessity Statement*: Patient requires hospitalization for osteomyelitis right foot, with diabetic foot infection Coding Level of Care Code Acute Grain Processor for [facility] Diagnoses Osteomyelitis of toe of right foot M86.9 Cellulitis L03.818 Site of cellulitis: other site Saphenous vein clot I82.819
[2021-01-31 16:27] LABS: Glucose Point of Care 180 mg/dL (70-110)
[2021-01-31] MEDS: chlorthalidone 25 mg Tablet PO (17:01)
[2021-01-31] MEDS: cloNIDine 0.1 mg Tablet PO (17:01)
[2021-01-31] MEDS: NIFEdipine ER (24 hr) 30 mg Tablet 60 MG PO (20:33)
[2021-01-31] MEDS: lisinopril 20 mg Tablet 40 MG PO (20:34)
[2021-01-31 21:22] LABS: Glucose Point of Care 159 mg/dL (70-110)
[2021-02-01] VITALS (7 sets, daily range): BP systolic 129–169; BP diastolic 80–100; PULSE 64–79; RESP 16–20; TEMP 36.5–36.8; O2SAT 92–97
[2021-02-01] MEDS: cloNIDine 0.1 mg Tablet PO ×2 (03:20→14:59)
[2021-02-01] MEDS: cefepime 2,000 MG in sodium chloride 0.9% (plus) 50 ML 100 MG IV ×2 (03:21→14:58)
[2021-02-01 05:42] LABS: Basophils # 0.1 10^3/uL (0.0-0.1); Basophils % 0.8 %; Eosinophils # 0.4 10^3/uL (0.0-0.8); Eosinophils % 3.1 %; Hematocrit 36.4 % (42.0-52.0); Hemoglobin 11.7 g/dL (11.7-16.6); Lymphocytes # 2.4 10^3/uL (0.8-4.8); Mean Corpuscular HGB Conc 32.1 g/dL (30.0-36.0); Mean Corpuscular Hemoglobin 28.2 pg (28.0-34.0); Mean Corpuscular Volume 87.7 fl (80-94); Mean Platelet Volume 9.3 fL (7.4-10.4); Monocytes # 0.8 10^3/uL (0.2-0.9); Monocytes % 6.4 %; Neutrophils % 69.4 %; Nucleated Red Blood Cells % 0 %; Platelet Count 506 10^3/cmm (130-400); Red Blood Count 4.15 10^6/uL (4.1-5.3); Red Cell Distribution Width 12.8 % (12.1-15.1); White Blood Count 12.7 10^3/uL (4.0-10.0)
[2021-02-01 06:12] LABS: Alanine Aminotransferase 33 U/L (0-41); Albumin Level 3.2 g/dL (3.5-5.2); Alkaline Phosphatase 137 IU/L (40-130); Anion Gap 15.2 (5-19); Aspartate Amino Transferase 24 U/L (0-40); Blood Urea Nitrogen 16 mg/dL (6-20); Calcium 8.9 mg/dL (8.5-10.5); Carbon Dioxide 26 mmol/L (22-29); Chloride 102 mmol/L (98-107); Globulin 4.6 g/dL (1.3-4.6); Glomerular Filtration Rate 70.6 mL/min (90-130); Glucose 183 mg/dL (65-115); Magnesium 2.2 mg/dL (1.7-2.3); Osmolality Calculated 294 mOsm/kg (285-295); Phosphorus 3.3 mg/dL (2.5-4.5); Potassium 4.2 mmol/L (3.5-5.1); Sodium 139 mmol/L (136-145); Total Bilirubin 0.4 mg/dL (0.15-1.2); Total Protein 7.8 g/dL (6.6-8.7)
[2021-02-01 06:37] LABS: Glucose Point of Care 182 mg/dL (70-110)
--- NOTE | 2021-02-01 07:22 | P.PN_ITS ---
Subjective Subjective: Interval history: Patient seen bedside this morning, 1 day status post incision and debridement with bone biopsy. Continues empiric IV antibiotics. Denies any pain to the right lower extremity. Patient denies any subjective nausea, vomiting, fever, chills, shortness of breath or chest pain. Vitals/I&O/Wt Last Vital Signs Temp 98.1 F 02/01/21 04:00 Pulse 67 02/01/21 04:00 Resp 16 02/01/21 04:00 BP 131/80 02/01/21 04:00 Pulse Ox 92 02/01/21 04:00 01/31/21 02/01/21 02/01/21 22:59 06:59 14:59 Intake Total 290 / 1270 510 / 1780 Output Total Balance 290 / 1260 508 / 1768 Physical Exam Narrative: EXAM NARRATIVE: GENERAL: Patient is alert and oriented ?3 and in no acute distress. The following is a focused bilateral lower extremity exam. VASCULAR: Dorsalis pedis palpable +2 bilaterally, posterior tibial arteries palpable +2 bilaterally. Capillary refill time less than 3 seconds to the distal hallux bilaterally. Calf is supple and nontender proximally and distally. Focal edema to the right hallux and edema to the right foot and leg. NEUROLOGICAL: Protective sensation intact 0/10 sites, tested with [place] Misti monofilament to bilateral feet. DERMATOLOGICAL: Wounds to the right dorsal and plantar foot have a fibrogranular base, 87 fibrotic 20% granular, there is no purulence able to be expressed from the wound or tendon sheath exposed at the dorsal foot wound along the extensor houses longus tendon. There is improved edema and improved erythema to the right foot. MUSCULOSKELETAL: No pain with posterior calf squeeze bilaterally. No pain with palpation or debridement of the right foot wound secondary to neuropathy. Data : 02/01/21 05:25 02/01/21 05:25 Micro: Microbiology 01/31/21 07:31 Gram Stain - Final Foot - Right 01/31/21 07:32 Gram Stain - Final Foot - Right A&P Assessment and plan (1) Osteomyelitis of toe of right foot: Status: Acute (2) Cellulitis: Status: Acute Qualifiers: Site of cellulitis: other site Qualified Code(s): L03.818 - Cellulitis of other sites (3) Diabetes mellitus with polyneuropathy: Status: Acute Qualifiers: Diabetes mellitus type: type 2 Qualified Code(s): E11.42 - Type 2 diabetes mellitus with diabetic polyneuropathy Mr. Anthony 50-year-old diabetic male with cellulitis and wound probes to bone right foot. Status post incision and debridement with soft tissue and bone biopsy right foot date of operation 01/31/2021. Gram stain shows gram-positive cocci in pairs, cultures and sensitivity pending Recommend PICC line and long-term IV antibiotics for osteomyelitis guided by bone culture Planning for repeat surgical debridement and wound VAC application tomorrow a.m. 02/02/2021 Okay to continue Lovenox perioperatively Patient will require home health Patient will require wound care referral for management of his wound after discharge From my standpoint patient would be okay for discharge home once intraoperative cultures are resulted and long-term antibiotic selection has been determined. I would anticipate PICC line, long-term IV antibiotics minimum 6 weeks, wound VAC and wound care clinic follow-up after this hospitalization. Attestations Medical Necessity Statement*: Cellulitis, osteomyelitis right foot Coding Level of Care Code Acute Enrollment Management Director for [facility] Diagnoses Osteomyelitis of toe of right foot M86.9 Cellulitis L03.818 Site of cellulitis: other site Diabetes mellitus with polyneuropathy E11.42 Diabetes mellitus type: type 2
[2021-02-01] MEDS: chlorthalidone 25 mg Tablet PO (08:19)
[2021-02-01] MEDS: atorvastatin 40 mg Tablet PO (08:19)
[2021-02-01] MEDS: pantoprazole DR 40 mg Tablet PO (08:19)
[2021-02-01] MEDS: spironolactone 25 mg Tablet 50 MG PO (08:19)
[2021-02-01] MEDS: metoprolol tartrate 25 mg Tablet PO ×2 (08:19→20:35)
[2021-02-01] MEDS: metroNIDAZOLE 500 MG Tablet PO ×3 (08:19→20:35)
[2021-02-01] MEDS: hyDRALAzine 50 mg Tablet PO ×3 (08:19→20:35)
[2021-02-01] MEDS: enoxaparin 120 mg/0.8 mL Syringe SUBCUT ×2 (08:19→20:34)
[2021-02-01] MEDS: bumetanide 1 mg Tablet 0.5 MG PO ×2 (08:19→18:14)
[2021-02-01] MEDS: erythromycin Op Oint 1 gm 1 APPLIC EYE-RIGHT ×3 (08:20→18:13)
[2021-02-01 12:05] LABS: Glucose Point of Care 132 mg/dL (70-110)
--- NOTE | 2021-02-01 17:07 | PM.PN ---
Subjective Subjective: Interval history: Patient was seen this morning, he is doing well, no fevers, chills, nausea, vomiting, still has some discharge from right eye, no right eye pain, no blindness, no photopsia, pupils equal round reactive to light Vitals/I&O/Wt Last Vital Signs Temp 97.8 F 02/01/21 15:51 Pulse 72 02/01/21 15:51 Resp 16 02/01/21 15:51 BP 148/94 02/01/21 15:51 Pulse Ox 97 02/01/21 15:51 02/01/21 02/01/21 02/01/21 06:59 14:59 22:59 Intake Total 510 / 1780 740 / 740 50 / 790 Output Total Balance 508 / 1768 740 / 740 50 / 790 Physical Exam Const: COMMON NORMALS: no acute distress and patient oriented x3 HENMT: COMMON NORMALS: normocephalic HEAD & SCALP: normocephalic Eye: OTHER: Right eye, conjunctival erythema, or discharge Resp: COMMON NORMALS: normal respiratory effort, No retractions, No use of accessory muscles and clear to auscultation bilaterally AUSCULTATION: clear to auscultation bilaterally Cardio: COMMON NORMALS: regular rate, regular rhythm, S1 normal heart sound present and S2 normal heart sound present RATE: regular rate RHYTHM: regular rhythm HEART SOUNDS: S1 normal heart sound present and S2 normal heart sound present GI: COMMON NORMALS: Normal to inspection, nondistended, normoactive bowel sounds present, Soft to palpation and non-tender PALPATION: Yes Soft to palpation Extremity: COMMON NORMALS: no pedal edema NARRATIVE EXTREMITY EXAM: Right foot, great toe, significant swelling, erythema, extending along the metatarsal, up to the fourth digit, wrapped in bandage, OTHER: Right lower extremity wrapped and bandaged Neuro: COMMON NORMALS: patient oriented x3 Psych: COMMON NORMALS: mental status grossly normal Data : 02/01/21 05:25 02/01/21 05:25 Micro: Microbiology 01/31/21 07:32 Gram Stain - Final Foot - Right Tissue Culture - Preliminary Staphylococcus aureus 01/31/21 07:31 Gram Stain - Final Foot - Right Tissue Culture - Preliminary Staphylococcus aureus A&P Assessment and plan (1) Osteomyelitis of toe of right foot: Status: Acute (2) Cellulitis: Status: Acute Qualifiers: Site of cellulitis: other site Qualified Code(s): L03.818 - Cellulitis of other sites (3) Saphenous vein clot: Status: Acute Additional A&P Information subacute swelling of the right foot, with CT suggestive of cellulitis without any underlying abscess, diffuse subcutaneous emphysema overlying the first metatarsophalangeal joint, raising concern also for underlying joint space infection. Erosive changes over the first phalanx which may be related to underlying osteomyelitis. Status post Incision and debridement of devitalized soft tissue, epidermis, dermis, subcutaneous tissue, muscle tendon and bone right foot. Right foot bone biopsy. Possible repeat debridement in the next few days Continue empiric antibiotic coverage with cefepime, vancomycin and p.o. Flagyl for additional anaerobic coverage ESR greater than 120, CRP 163 Clinically appearing to be euvolemic, does not need additional IV fluids at this time. FE shows no evidence of significant arterial obstruction Podiatry consult Likely will require PICC line placement with long-term IV antibiotics, wound care Has a extensive nonocclusive thrombus of the right greater saphenous vein from abductor hiatus to ankle, will manage as likely DVT given how extensive, on therapeutic Lovenox Diabetes mellitus: Insulin sliding scale while remains inpatient. Hypertension: Continue home doses of hydralazine, lisinopril, nifedipine and spironolactone, increase clonidine, add chlorthalidone Sleep apnea: Continue BiPAP use as needed, currently saturating 98% on room air. DVT prophylaxis: Lovenox Full code. 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
[2021-02-01 17:12] LABS: Glucose Point of Care 150 mg/dL (70-110)
[2021-02-01] MEDS: lisinopril 20 mg Tablet 40 MG PO (20:35)
[2021-02-01] MEDS: NIFEdipine ER (24 hr) 30 mg Tablet 60 MG PO (20:35)
[2021-02-01 20:59] LABS: Glucose Point of Care 145 mg/dL (70-110)
[2021-02-02] VITALS (13 sets, daily range): BP systolic 119–157; BP diastolic 71–91; PULSE 61–75; RESP 16–18; TEMP 36.3–37.3; O2SAT 92–98
[2021-02-02 02:58] LABS: Basophils # 0.1 10^3/uL (0.0-0.1); Basophils % 0.9 %; Eosinophils # 0.5 10^3/uL (0.0-0.8); Eosinophils % 3.1 %; Hematocrit 35.5 % (42.0-52.0); Hemoglobin 11.6 g/dL (11.7-16.6); Lymphocytes # 2.6 10^3/uL (0.8-4.8); Mean Corpuscular HGB Conc 32.7 g/dL (30.0-36.0); Mean Corpuscular Hemoglobin 28.6 pg (28.0-34.0); Mean Corpuscular Volume 87.7 fl (80-94); Mean Platelet Volume 9.4 fL (7.4-10.4); Monocytes # 0.9 10^3/uL (0.2-0.9); Monocytes % 6.3 %; Neutrophils # 10.69 10^3/uL (1.8-7.7); Nucleated Red Blood Cells % 0 %; Platelet Count 519 10^3/cmm (130-400); Red Blood Count 4.05 10^6/uL (4.1-5.3); Red Cell Distribution Width 12.8 % (12.1-15.1)
[2021-02-02] MEDS: cefepime 2,000 MG in sodium chloride 0.9% (plus) 50 ML 100 MG IV ×2 (03:03→17:03)
[2021-02-02] MEDS: cloNIDine 0.1 mg Tablet PO ×2 (03:04→17:03)
[2021-02-02 03:14] LABS: Alanine Aminotransferase 30 U/L (0-41); Albumin Level 3.1 g/dL (3.5-5.2); Alkaline Phosphatase 120 IU/L (40-130); Aspartate Amino Transferase 29 U/L (0-40); Blood Urea Nitrogen 22 mg/dL (6-20); Carbon Dioxide 26 mmol/L (22-29); Chloride 100 mmol/L (98-107); Globulin 4.6 g/dL (1.3-4.6); Glomerular Filtration Rate 53.4 mL/min (90-130); Glucose 173 mg/dL (65-115); Magnesium 2.2 mg/dL (1.7-2.3); Osmolality Calculated 295 mOsm/kg (285-295); Phosphorus 3.7 mg/dL (2.5-4.5); Sodium 139 mmol/L (136-145); Total Bilirubin 0.3 mg/dL (0.15-1.2); Total Protein 7.7 g/dL (6.6-8.7)
[2021-02-02 06:25] LABS: Glucose Point of Care 149 mg/dL (70-110)
--- NOTE | 2021-02-02 06:30 | PC.NURSE ---
surgery prep complete and patient in gown. Resting in bed with call light in julianna. KATIA Greene
[2021-02-02] MEDS: enoxaparin 120 mg/0.8 mL Syringe SUBCUT ×2 (08:34→20:31)
[2021-02-02] MEDS: metroNIDAZOLE 500 MG Tablet PO ×3 (08:35→20:31)
[2021-02-02] MEDS: hyDRALAzine 50 mg Tablet 100 MG PO ×2 (08:35→20:31)
[2021-02-02] MEDS: pantoprazole DR 40 mg Tablet PO (08:35)
[2021-02-02] MEDS: metoprolol tartrate 25 mg Tablet PO ×2 (08:36→21:33)
[2021-02-02] MEDS: sodium chloride 0.9% 1,000 ML 75 ML IV ×2 (08:36→21:57)
--- NOTE | 2021-02-02 10:44 | PC.NURSE ---
Patient was wheel chaired down to surgery at this time. Patient is A&Ox3 and on room air at this time.
--- NOTE | 2021-02-02 10:54 | PM.PN ---
Subjective Subjective: Interval history: Patient was seen this morning he is awaiting his surgical debridement by Dr. Burgos this morning, his right eye is feeling better, less discharge, he has no complaints, Vitals/I&O/Wt Last Vital Signs Temp 97.3 F L 02/02/21 10:52 Pulse 65 02/02/21 10:52 Resp 18 02/02/21 10:52 BP 130/79 02/02/21 10:52 Pulse Ox 97 02/02/21 10:52 02/01/21 02/02/21 02/02/21 22:59 06:59 14:59 Intake Total 530 / 1270 50 / 1320 200 / 200 Output Total 400 / 400 Balance 530 / 1270 -350 / 920 200 / 200 Physical Exam Const: COMMON NORMALS: no acute distress and patient oriented x3 Eye: OTHER: Right, conjunctival injection, clear discharge Resp: COMMON NORMALS: normal respiratory effort, No retractions, No use of accessory muscles and clear to auscultation bilaterally AUSCULTATION: clear to auscultation bilaterally Cardio: COMMON NORMALS: regular rate, regular rhythm, S1 normal heart sound present and S2 normal heart sound present RATE: regular rate RHYTHM: regular rhythm HEART SOUNDS: S1 normal heart sound present and S2 normal heart sound present GI: COMMON NORMALS: Normal to inspection, nondistended, normoactive bowel sounds present, Soft to palpation, non-tender and No hepatosplenomegaly present PALPATION: Yes Soft to palpation and Yes No hepatosplenomegaly present Extremity: NARRATIVE EXTREMITY EXAM: Right lower extremity, wrapped and bandaged Neuro: COMMON NORMALS: patient oriented x3 Psych: COMMON NORMALS: mental status grossly normal Data : 02/02/21 02:36 02/02/21 02:36 Micro: Microbiology 01/31/21 07:32 Gram Stain - Final Foot - Right Tissue Culture - Preliminary Staphylococcus aureus 01/31/21 07:31 Gram Stain - Final Foot - Right Tissue Culture - Preliminary Staphylococcus aureus A&P Assessment and plan (1) Osteomyelitis of toe of right foot: Status: Acute (2) Cellulitis: Status: Acute Qualifiers: Site of cellulitis: other site Qualified Code(s): L03.818 - Cellulitis of other sites (3) Saphenous vein clot: Status: Acute (4) Acute conjunctivitis, right eye: Status: Acute Additional A&P Information subacute swelling of the right foot, with CT suggestive of cellulitis without any underlying abscess, diffuse subcutaneous emphysema overlying the first metatarsophalangeal joint, raising concern also for underlying joint space infection. Erosive changes over the first phalanx which may be related to underlying osteomyelitis. Status post Incision and debridement of devitalized soft tissue, epidermis, dermis, subcutaneous tissue, muscle tendon and bone right foot. Right foot bone biopsy. repeat debridement today Continue empiric antibiotic coverage with cefepime, vancomycin and p.o. Flagyl for additional anaerobic coverage ESR greater than 120, CRP 163 Clinically appearing to be euvolemic, does not need additional IV fluids at this time. FE shows no evidence of significant arterial obstruction Podiatry consult Likely will require PICC line placement with long-term IV antibiotics, wound care Has a extensive nonocclusive thrombus of the right greater saphenous vein from abductor hiatus to ankle, will manage as likely DVT given how extensive, on therapeutic Lovenox KARI, creatinine 1.4, random Vanco level 19, discontinue nephrotoxic medications, monitor renal function monitor urine output Diabetes mellitus: Insulin sliding scale while remains inpatient. Hypertension: Continue home doses of hydralazine, clonidine Sleep apnea: Continue BiPAP use as needed, currently saturating 98% on room air. DVT prophylaxis: Lovenox Full code. Attestations Medical Necessity Statement*: Patient requires hospitalization for osteomyelitis right foot, deep tissue infection, requiring debridement, long-term antibiotics, saphenous vein clot Coding Level of Care Code Acute Shift Supervisor Rn for [facility] Diagnoses Osteomyelitis of toe of right foot M86.9 Cellulitis L03.818 Site of cellulitis: other site Saphenous vein clot I82.819 Acute conjunctivitis, right eye H10.31
[2021-02-02] MEDS: sodium chloride 0.9% 1,000 ML 30 ML IV (11:04)
--- NOTE | 2021-02-02 12:14 | W.PM.OPSUD ---
Surgery/Procedure H&P Update DATE OF PROCEDURE: February 02, 2021 DATE H&P PERFORMED: 01/30/21 H&P UPDATE INFORMATION: I have reviewed H&P completed within last 30 days, I have examined patient prior to procedure, No changes to prior documentation and H&P is in [facility] EMR on date indicated PREOP DIAGNOSIS: Diabetic foot infection right foot PLANNED PROCEDURE: Operation Date: 01/31/21 07:30 Proposed Procedures p Incision And Drainage right(Right) - Tej Burgos DPM Operation Date: 02/02/21 11:55 Proposed Procedures p Incision And Drainage right foot with wound vac application(Right) - Tej Burgos DPM
--- NOTE | 2021-02-02 12:18 | ANES.PREANE2 ---
Pre-Anesthetic Assessment Pre-Anesthetic Assessment: Height/Weight: Height 1.75 m Weight 120.837 kg Temp Pulse Resp BP Pulse Ox 97.3 F L 65 18 130/79 97 02/02/21 10:52 02/02/21 10:52 02/02/21 10:52 02/02/21 10:52 02/02/21 10:52 Preop Diagnosis: Diabetic foot infection right foot Proposed Procedure: Operation Date: 01/31/21 07:30 Proposed Procedures p Incision And Drainage right(Right) - Tej Burgos DPM Operation Date: 02/02/21 11:55 Proposed Procedures p Incision And Drainage right foot with wound vac application(Right) - Tej Burgos DPM Was Beta Fito taken within 24 hours: N/A Was Clonidine taken within 24 hours: Yes Last intake: Intake Last Liquid Date 01/30/21 Last Liquid Time 00:00 Last Solid Date 01/30/21 Last Solid Time 23:30 Exam: Pre-Anes Outpt Exam: alert, oriented x 3 and clear to auscultation bilaterally Airway: Cervical ROM: WNL MP: 2 Dentition: Chipped Additional comments: poor dentition History/ROS: No significant complaints Pulmonary: Pulmonary: DEL CID Comments: Severe COVID in november; transferred to [facility] for treatment; Home O2 for sats less than 91%; has not needed O2 in last couple weeks CV/HEM: CV/HEM: HTN Metabolic: Metabolic: Morbid obesity Musc/skel: Musc/skel: None reported Neuropsych: Neuropsych: None reported Anesthetic Plan: ASA status: 3 Anesthesia: Choice Risk of > 500 ml blood loss (7ml/kg in children): No Meds/Allergies Current Medications: Current Medications Generic Name Dose Route Start Last Admin Trade Name Freq PRN Reason Stop Dose Admin Atorvastatin Calci um 40 mg 01/30/21 09:00 02/02/21 08:36 Atorvastatin 40 Mg Tablet PO Not Given DAILY SONIA Clonidine HCl 0.1 mg 01/31/21 16:00 02/02/21 03:04 Clonidine 0.1 Mg Tablet PO 0.1 mg Q12H SONIA Administration Enoxaparin Sodium 120 mg 01/30/21 20:00 02/02/21 08:34 Enoxaparin 120 M g/0.8 Ml Syringe SUBCUT 120 mg Q12H SONIA Administration Hydralazine HCl 100 mg 02/02/21 09:00 02/02/21 08:35 Hydralazine 50 M g Tablet PO 100 mg TID SONIA Administration Cefepime HCl 2,000 mg/ Sodium 50 mls @ 100 mls/ hr 01/30/21 04:00 02/02/21 03:48 Chloride IV Infused Q12H SONIA Infusion Protocol Vancomycin HCl 2,0 00 mg/ 500 mls @ 250 mls /hr 02/01/21 06:00 02/02/21 05:02 Sodium Chloride IV 250 mls/hr Q24H SONIA Administration Sodium Chloride 1,000 mls @ 75 ml s/hr 02/02/21 08:15 02/02/21 10:46 Sodium Chloride 0.9% IV Infused .[id number] SONIA Infusion Sodium Chloride 1,000 mls @ 30 ml s/hr 02/02/21 10:45 02/02/21 11:04 Sodium Chloride 0.9% IV 02/03/21 10:44 30 mls/hr .Q24H SONIA Administration Insulin Aspart 0 unit 01/30/21 08:00 02/02/21 08:35 Insulin Aspart 1 00 Unit/1 Ml SUBCUT Not Given WM&BEDTIME SONIA Protocol Metoprolol Tartrat e 25 mg 01/31/21 12:00 02/02/21 08:36 Metoprolol Tartr ate 25 Mg Tablet PO 25 mg BID@0800,1999 SONIA Administration Metronidazole 500 mg 01/30/21 09:00 02/02/21 08:35 Metronidazole 50 0 Mg Tablet PO 500 mg TID SONIA Administration Nifedipine 60 mg 01/30/21 21:00 02/01/21 20:35 Nifedipine Er (2 4 Hr) 30 Mg Tablet PO 60 mg BEDTIME SONIA Administration Pantoprazole Sodiu m 40 mg 01/30/21 09:00 02/02/21 08:[address] 40 Mg Tablet PO 40 mg DAILY SONIA Administration PFSH Anesthesia PFSH: Medical History Diabetes Edema Neuropathy Pneumonia due to COVID-19 virus Sleep apnea Family History Other CAD (coronary artery disease) Hypertension Data Anesthesia CBC & Chem 7: 02/02/21 02:36 02/02/21 02:36 Other Labs: Laboratory Results - last 48 hr 01/30/21 01/31/21 01/31/21 12:36 12:40 16:21 WBC RBC Hgb Hct MCV MCH MCHC RDW Plt Count MPV Neut % (Auto) Lymph % (Auto) [place] % (Auto) Eos % (Auto) Baso % (Auto) Neut # (Auto) Lymph # (Auto) [place] # (Auto) Eos # (Auto) Baso # (Auto) Nucleated RBC % (auto) Nucleated RBCs # Sodium Potassium Chloride Carbon Dioxide Anion Gap BUN Creatinine GFR Calculation Glucose POC Glucose 165 H 180 H Calculated Osmolality Calcium Phosphorus Magnesium Total Bilirubin AST ALT Alkaline Phosphatase Total Protein Albumin Globulin Vancomycin Trough Random Vancomycin Nasal/Oral COVID-19 PCR Not detected 01/31/21 01/31/21 02/01/21 17:38 21:12 05:25 WBC 12.7 H RBC 4.15 Hgb 11.7 Hct 36.4 L MCV 87.7 MCH 28.2 MCHC 32.1 RDW 12.8 Plt Count 506 H MPV 9.3 Neut % (Auto) 69.4 Lymph % (Auto) 19.0 [place] % (Auto) 6.4 Eos % (Auto) 3.1 Baso % (Auto) 0.8 Neut # (Auto) 8.80 H Lymph # (Auto) 2.4 [place] # (Auto) 0.8 Eos # (Auto) 0.4 Baso # (Auto) 0.1 Nucleated RBC % (auto) 0 Nucleated RBCs # 0.0 Sodium Potassium Chloride Carbon Dioxide Anion Gap BUN Creatinine GFR Calculation Glucose POC Glucose 159 H Calculated Osmolality Calcium Phosphorus Magnesium Total Bilirubin AST ALT Alkaline Phosphatase Total Protein Albumin Globulin Vancomycin Trough 23.0 H Random Vancomycin Nasal/Oral COVID-19 PCR 02/01/21 02/01/21 02/01/21 05:25 06:34 12:00 WBC RBC Hgb Hct MCV MCH MCHC RDW Plt Count MPV Neut % (Auto) Lymph % (Auto) [place] % (Auto) Eos % (Auto) Baso % (Auto) Neut # (Auto) Lymph # (Auto) [place] # (Auto) Eos # (Auto) Baso # (Auto) Nucleated RBC % (auto) Nucleated RBCs # Sodium 139 Potassium 4.2 Chloride 102 Carbon Dioxide 26 Anion Gap 15.2 BUN 16 Creatinine 1.1 GFR Calculation 70.6 L Glucose 183 H POC Glucose 182 H 132 H Calculated Osmolality 294 Calcium 8.9 Phosphorus 3.3 Magnesium 2.2 Total Bilirubin 0.4 AST 24 ALT 33 Alkaline Phosphatase 137 H Total Protein 7.8 Albumin 3.2 L Globulin 4.6 Vancomycin Trough Random Vancomycin Nasal/Oral COVID-19 PCR 02/01/21 02/01/21 02/02/21 16:43 20:55 02:36 WBC 15.0 H RBC 4.05 L Hgb 11.6 L Hct 35.5 L MCV 87.7 MCH 28.6 MCHC 32.7 RDW 12.8 Plt Count 519 H MPV 9.4 Neut % (Auto) 71.0 Lymph % (Auto) 17.0 [place] % (Auto) 6.3 Eos % (Auto) 3.1 Baso % (Auto) 0.9 Neut # (Auto) 10.69 H Lymph # (Auto) 2.6 [place] # (Auto) 0.9 Eos # (Auto) 0.5 Baso # (Auto) 0.1 Nucleated RBC % (auto) 0 Nucleated RBCs # 0.0 Sodium Potassium Chloride Carbon Dioxide Anion Gap BUN Creatinine GFR Calculation Glucose POC Glucose 150 H 145 H Calculated Osmolality Calcium Phosphorus Magnesium Total Bilirubin AST ALT Alkaline Phosphatase Total Protein Albumin Globulin Vancomycin Trough Random Vancomycin Nasal/Oral COVID-19 PCR 02/02/21 02/02/21 02/02/21 02:36 02:36 06:22 WBC RBC Hgb Hct MCV MCH MCHC RDW Plt Count MPV Neut % (Auto) Lymph % (Auto) [place] % (Auto) Eos % (Auto) Baso % (Auto) Neut # (Auto) Lymph # (Auto) [place] # (Auto) Eos # (Auto) Baso # (Auto) Nucleated RBC % (auto) Nucleated RBCs # Sodium 139 Potassium 4.0 Chloride 100 Carbon Dioxide 26 Anion Gap 17.0 BUN 22 H Creatinine 1.4 H GFR Calculation 53.4 L Glucose 173 H POC Glucose 149 H Calculated Osmolality 295 Calcium 9.0 Phosphorus 3.7 Magnesium 2.2 Total Bilirubin 0.3 AST 29 ALT 30 Alkaline Phosphatase 120 Total Protein 7.7 Albumin 3.1 L Globulin 4.6 Vancomycin Trough Cancelled Random Vancomycin 19.0 L Nasal/Oral COVID-19 PCR Micro: Microbiology 01/31/21 07:32 Gram Stain - Final Foot - Right Tissue Culture - Preliminary Staphylococcus aureus 01/31/21 07:31 Gram Stain - Final Foot - Right Tissue Culture - Preliminary Staphylococcus aureus Cardiac Studies: No Data to Display
--- NOTE | 2021-02-02 12:57 | P.OP_ITS ---
Operative Report Date of procedure: February 02, 2021 Pre-op Diagnosis: Diabetic foot infection right foot Post-op diagnosis: same Post-op Findings: Same Procedure Done: Incision and debridement down to including bone with wound VAC application right foot Implants: Wound VAC dressing with granulafoam Specimens removed/disposition: None Pathology: none sent Surgeon: Tej Burgos D.P.M. Senior Integration Developer: Sunita Estimated blood loss: 5 mL Tourniquet time: 18 minutes IV fluids: None Urine output: None Complications: None Findings: Improved erythema Condition: stable Disposition: floor Brief History: Repeat debridement with wound VAC application planned due to diabetic foot infection with septic first metatarsophalangeal joint, cellulitis and osteomyelitis, has already underwent 1 surgical debridement this will be a final debridement surgically during this hospitalization with application of wound VAC. Procedure: Under mild sedation the patient was brought to the operating room and placed on the operating table in supine position. A timeout was performed. Anesthesia was then administered by the anesthesia service. Local anesthesia injected by myself 30 cc of 0.5% Marcaine plain and a right ankle block fashion. Well-padded pneumatic tourniquet applied to the right ankle. Right lower extremity was scrubbed, prepped and draped utilizing normal aseptic technique. Attention was directed to the dorsum of the right foot where a wound full- thickness exposed bone and tendon was sharply debrided down to and including bone post debridement wound measurements at the dorsum of the right forefoot 5 cm x 6.5 cm x 1 cm. Wound at the plantar forefoot subfirst metatarsal head also probes to bone and sharp debridement was performed of all devitalized soft tissue, epidermis, dermis, subcutaneous tissue, deep fascia, muscle and bone with post debridement wound measurements 1.2 cm x 1.5 cm x 1.2 cm. Wound at the instep of the right foot was also sharply debrided of all devitalized soft tissue as above with post debridement wound measurements at 5.3 cm x 2.1 cm x 0.4 cm. Wound VAC was then applied with granular foam in the wound bed with excellent seal set at 125 mmHg continuous negative pressure. No leaks. Tourniquet was deflated and a prompt hyperemic response was noted to all distal digits of the right foot. Patient tolerated the procedure well and was transferred to the PACU with vital signs stable and vascular status intact. After period of postoperative monitoring will be transferred back to the floor to continue empiric IV antibiotics. Plan for PICC line, long-term IV antibiotics and wound care clinic referral, will require home health, may do discharge planning at this point with antibiotic therapy is guided by bone biopsy so far this is growing staph aureus.
[2021-02-02 17:10] LABS: Glucose Point of Care 175 mg/dL (70-110)
--- NOTE | 2021-02-02 18:58 | PC.NURSE ---
Report to Mary Jo HEARD at this time.
[2021-02-02] MEDS: NIFEdipine ER (24 hr) 30 mg Tablet 60 MG PO (20:31)
[2021-02-02 21:10] LABS: Glucose Point of Care 183 mg/dL (70-110)
[2021-02-03] VITALS (9 sets, daily range): BP systolic 116–149; BP diastolic 72–89; PULSE 64–79; RESP 18; TEMP 36.6–37.1; O2SAT 93–98
[2021-02-03] MEDS: cefepime 2,000 MG in sodium chloride 0.9% (plus) 50 ML 100 MG IV ×2 (05:11→15:52)
[2021-02-03] MEDS: cloNIDine 0.1 mg Tablet PO (05:14)
[2021-02-03 05:20] LABS: Basophils # 0.1 10^3/uL (0.0-0.1); Basophils % 0.8 %; Eosinophils # 0.3 10^3/uL (0.0-0.8); Eosinophils % 2.1 %; Hematocrit 33.4 % (42.0-52.0); Hemoglobin 10.6 g/dL (11.7-16.6); Lymphocytes # 2.5 10^3/uL (0.8-4.8); Mean Corpuscular HGB Conc 31.7 g/dL (30.0-36.0); Mean Corpuscular Hemoglobin 28.6 pg (28.0-34.0); Mean Corpuscular Volume 90.3 fl (80-94); Mean Platelet Volume 9.3 fL (7.4-10.4); Monocytes # 0.9 10^3/uL (0.2-0.9); Monocytes % 6.1 %; Neutrophils # 10.57 10^3/uL (1.8-7.7); Neutrophils % 72.6 %; Nucleated Red Blood Cells % 0 %; Platelet Count 466 10^3/cmm (130-400); Red Cell Distribution Width 13.3 % (12.1-15.1); White Blood Count 14.5 10^3/uL (4.0-10.0)
[2021-02-03 05:50] LABS: Alanine Aminotransferase 27 U/L (0-41); Alkaline Phosphatase 107 IU/L (40-130); Anion Gap 11.6 (5-19); Aspartate Amino Transferase 27 U/L (0-40); Blood Urea Nitrogen 24 mg/dL (6-20); Calcium 8.6 mg/dL (8.5-10.5); Carbon Dioxide 26 mmol/L (22-29); Chloride 102 mmol/L (98-107); Creatinine Clr Calc Pharmacy 86.2946; Globulin 3.9 g/dL (1.3-4.6); Glomerular Filtration Rate 58.2 mL/min (90-130); Glucose 163 mg/dL (65-115); Magnesium 2.1 mg/dL (1.7-2.3); Osmolality Calculated 288 mOsm/kg (285-295); Phosphorus 2.9 mg/dL (2.5-4.5); Potassium 4.6 mmol/L (3.5-5.1); Sodium 135 mmol/L (136-145); Total Bilirubin 0.2 mg/dL (0.15-1.2); Total Protein 6.9 g/dL (6.6-8.7)
[2021-02-03 06:03] LABS: Vancomycin Trough 15.6 ug/mL (10-15)
[2021-02-03 07:01] LABS: Glucose Point of Care 150 mg/dL (70-110)
[2021-02-03 07:01] LABS: Glucose Point of Care 83 mg/dL (70-110)
[2021-02-03] MEDS: metroNIDAZOLE 500 MG Tablet PO ×3 (07:49→21:30)
[2021-02-03] MEDS: metoprolol tartrate 25 mg Tablet PO ×2 (07:49→21:39)
[2021-02-03] MEDS: pantoprazole DR 40 mg Tablet PO (07:49)
[2021-02-03] MEDS: enoxaparin 120 mg/0.8 mL Syringe SUBCUT ×2 (07:50→21:30)
[2021-02-03] MEDS: atorvastatin 40 mg Tablet PO (07:50)
--- NOTE | 2021-02-03 08:28 | PM.PN ---
Subjective Subjective: Interval history: Patient seen bedside this morning doing well, tolerating regular diet. Denies any pain to the right foot. Wound VAC functioning with adequate seal. Patient denies any subjective nausea, vomiting, fever, chills, shortness of breath or chest pain. Vitals/I&O/Wt Last Vital Signs Temp 97.8 F 02/03/21 07:22 Pulse 67 02/03/21 07:22 Resp 18 02/03/21 07:22 BP 116/72 02/03/21 07:22 Pulse Ox 97 02/03/21 07:22 02/02/21 02/03/21 02/03/21 22:59 06:59 14:59 Intake Total 290 / 1010 250 / 1260 50 / 50 Output Total 800 / 810 575 / 1385 575 / 575 Balance -510 / 200 -325 / -125 -525 / -525 Physical Exam Narrative: EXAM NARRATIVE: Patient is alert and oriented ?3 and in no acute distress. The following is a focused bilateral lower extremity exam. VASCULAR: Dorsalis pedis palpable +2 bilaterally, posterior tibial arteries palpable +2 bilaterally. Capillary refill time less than 3 seconds to the distal hallux bilaterally. Calf is supple and nontender proximally and distally. Focal edema to the right hallux and edema to the right foot and leg. NEUROLOGICAL: Protective sensation intact 0/10 sites, tested with [place] Misti monofilament to bilateral feet. DERMATOLOGICAL: Wound VAC intact with seal, 30 cc of serosanguineous drainage in the canister, no proximal lymphangitic streaking. MUSCULOSKELETAL: No pain with posterior calf squeeze bilaterally. No pain with palpation or debridement of the right foot wound secondary to neuropathy. Data : 02/03/21 05:05 02/03/21 05:05 Micro: Microbiology 01/31/21 07:32 Gram Stain - Final Foot - Right Tissue Culture - Preliminary Staphylococcus aureus 01/31/21 07:31 Gram Stain - Final Foot - Right Tissue Culture - Preliminary Staphylococcus aureus A&P Assessment and plan (1) Osteomyelitis of toe of right foot: Status: Acute (2) Cellulitis: Status: Acute Qualifiers: Site of cellulitis: other site Qualified Code(s): L03.818 - Cellulitis of other sites (3) Diabetes mellitus with polyneuropathy: Status: Acute Qualifiers: Diabetes mellitus type: type 2 Qualified Code(s): E11.42 - Type 2 diabetes mellitus with diabetic polyneuropathy Mr. Anthony 50-year-old diabetic male with cellulitis and wound probes to bone right foot. 01/31/2021 incision and debridement with soft tissue and bone biopsy right foot 02/03/2020 1 repeat debridement and application of wound VAC to the right foot Bone biopsy and soft tissue cultures both growing staph aureus Recommend PICC line and long-term IV antibiotics for osteomyelitis guided by bone culture Recommend home health referral Patient will require wound care referral for management of his wound after discharge From my standpoint patient would be okay for discharge home once intraoperative cultures are resulted and long-term antibiotic selection has been determined. I would anticipate PICC line, long-term IV antibiotics minimum 6 weeks, wound VAC and wound care clinic follow-up after this hospitalization. I will change the wound VAC 02/04/2021 if patient is still in-house. Attestations Medical Necessity Statement*: Diabetic foot infection Coding Level of Care Code Acute Returned Goods Receiving Clerk for [facility] Mara Diagnoses Osteomyelitis of toe of right foot M86.9 Cellulitis L03.818 Site of cellulitis: other site Diabetes mellitus with polyneuropathy E11.42 Diabetes mellitus type: type 2
[2021-02-03 11:10] LABS: Glucose Point of Care 174 mg/dL (70-110)
--- NOTE | 2021-02-03 13:45 | P.PN_ITS ---
Subjective Subjective: Interval history: Patient was seen this morning, he tells me that Dr. Burgos was early in the morning, no plans on surgery, has a wound VAC in place, he tells me that his right eye redness and drainage has significantly improved Vitals/I&O/Wt Last Vital Signs Temp 97.9 F 02/03/21 11:17 Pulse 64 02/03/21 11:17 Resp 18 02/03/21 11:17 BP 141/89 02/03/21 11:17 Pulse Ox 97 02/03/21 11:17 02/02/21 02/03/21 02/03/21 22:59 06:59 14:59 Intake Total 290 / 1010 250 / 1260 670 / 670 Output Total 800 / 810 575 / 1385 575 / 575 Balance -510 / 200 -325 / -125 95 / 95 Physical Exam Const: COMMON NORMALS: no acute distress and patient oriented x3 Eye: OTHER: Right eye, conjunctiva, injection, Resp: COMMON NORMALS: normal respiratory effort, No retractions, No use of accessory muscles and clear to auscultation bilaterally AUSCULTATION: clear to auscultation bilaterally Cardio: COMMON NORMALS: regular rate, regular rhythm, S1 normal heart sound present and S2 normal heart sound present RATE: regular rate RHYTHM: regular rhythm HEART SOUNDS: S1 normal heart sound present and S2 normal heart sound present GI: COMMON NORMALS: Normal to inspection, nondistended, normoactive bowel sounds present, Soft to palpation, non-tender and No hepatosplenomegaly present PALPATION: Yes Soft to palpation and Yes No hepatosplenomegaly present Extremity: COMMON NORMALS: no pedal edema NARRATIVE EXTREMITY EXAM: Right lower extremity, wrapped and bandaged, wound VAC in place OTHER: Right lower extremity wrapped and bandaged Neuro: COMMON NORMALS: patient oriented x3 Psych: COMMON NORMALS: mental status grossly normal Data : 02/03/21 05:05 02/03/21 05:05 Micro: Microbiology 01/31/21 07:32 Gram Stain - Final Foot - Right Tissue Culture - Final Staphylococcus aureus 01/31/21 07:31 Gram Stain - Final Foot - Right Tissue Culture - Final Staphylococcus aureus A&P Assessment and plan (1) Osteomyelitis of toe of right foot: Status: Acute (2) Cellulitis: Status: Acute Qualifiers: Site of cellulitis: other site Qualified Code(s): L03.818 - Cellulitis of other sites (3) Saphenous vein clot: Status: Acute (4) Acute conjunctivitis, right eye: Status: Acute Additional A&P Information subacute swelling of the right foot, with CT suggestive of cellulitis without any underlying abscess, diffuse subcutaneous emphysema overlying the first metatarsophalangeal joint, raising concern also for underlying joint space infection. Erosive changes over the first phalanx which may be related to und erlying osteomyelitis. Status post Incision and debridement of devitalized soft tissue, epidermis, d ermis, subcutaneous tissue, muscle tendon and bone right foot. Right foot bone biopsy Status post Incision and debridement down to including bone with wound VAC application right foot Implants: Wound VAC dressing with granulafoam Continue empiric antibiotic coverage with cefepime, vancomycin and p.o. Flagyl for additional anaerobic coverage ESR greater than 120, CRP 163 FE shows no evidence of significant arterial obstruction Podiatry consult PICC line placement on Friday, likely requires vancomycin 2 g every 24 hours for 6 weeks, dose based on Vanco trough, and Levaquin Has a extensive nonocclusive thrombus of the right greater saphenous vein from abductor hiatus to ankle, will manage as likely DVT given how extensive, on therapeutic Lovenox, switch to Eliquis on discharge KARI, creatinine 1.3, random Vanco level 19, discontinuednephrotoxic medications, monitor renal function monitor urine output Right eye conjunctivitis, continue tobramycin, no evidence of acute angle- closure glaucoma, no eye pain, no photopsia, no floaters, pupils equal round reactive to light, no eye pain Diabetes mellitus: Insulin sliding scale while remains inpatient. Hypertension: Continue home doses of hydralazine, clonidine Sleep apnea: Continue BiPAP use as needed, currently saturating 98% on room air. DVT prophylaxis: Lovenox Full code. Attestations Medical Necessity Statement*: Patient requires hospitalization, for right foot cellulitis osteomyelitis status post debridement, requiring long-term antibiotic therapy, wound VAC in place Coding Level of Care Code Acute Automatic Driller And Reamer for [facility] Fwd Diagnoses Osteomyelitis of toe of right foot M86.9 Cellulitis L03.818 Site of cellulitis: other site Saphenous vein clot I82.819 Acute conjunctivitis, right eye H10.31
[2021-02-03] MEDS: hyDRALAzine 50 mg Tablet 100 MG PO ×2 (15:45→21:31)
[2021-02-03 17:18] LABS: Glucose Point of Care 147 mg/dL (70-110)
--- NOTE | 2021-02-03 18:15 | PC.NURSE ---
Patient's Wound Vac was saying blockage alert. Canister changed at this time. There was approximately 70 mls in canister.
--- NOTE | 2021-02-03 19:07 | PC.NURSE ---
Report to Mary Jo HEARD at this time.
[2021-02-03 20:46] LABS: Glucose Point of Care 218 mg/dL (70-110)
[2021-02-03] MEDS: NIFEdipine ER (24 hr) 30 mg Tablet 60 MG PO (21:31)
[2021-02-04] VITALS (7 sets, daily range): BP systolic 130–165; BP diastolic 76–102; PULSE 69–95; RESP 15–20; TEMP 36.6–36.9; O2SAT 94–97
[2021-02-04] MEDS: cefepime 2,000 MG in sodium chloride 0.9% (plus) 50 ML 100 MG IV ×2 (04:31→16:42)
[2021-02-04] MEDS: cloNIDine 0.1 mg Tablet PO ×2 (04:32→16:37)
[2021-02-04] MEDS: diphenhydrAMINE 25 mg Capsule PO (05:22)
[2021-02-04 06:04] LABS: Basophils # 0.1 10^3/uL (0.0-0.1); Basophils % 0.7 %; Eosinophils # 0.3 10^3/uL (0.0-0.8); Eosinophils % 2.1 %; Hemoglobin 10.3 g/dL (11.7-16.6); Lymphocytes # 2.3 10^3/uL (0.8-4.8); Lymphocytes % 15.5 %; Mean Corpuscular HGB Conc 32.2 g/dL (30.0-36.0); Mean Corpuscular Hemoglobin 29.1 pg (28.0-34.0); Mean Corpuscular Volume 90.4 fl (80-94); Mean Platelet Volume 9.3 fL (7.4-10.4); Monocytes # 0.9 10^3/uL (0.2-0.9); Monocytes % 5.7 %; Neutrophils # 11.11 10^3/uL (1.8-7.7); Neutrophils % 74.7 %; Nucleated Red Blood Cells % 0 %; Platelet Count 472 10^3/cmm (130-400); Red Blood Count 3.54 10^6/uL (4.1-5.3); Red Cell Distribution Width 13.2 % (12.1-15.1); White Blood Count 14.9 10^3/uL (4.0-10.0)
[2021-02-04 06:30] LABS: Alanine Aminotransferase 22 U/L (0-41); Albumin Level 3.4 g/dL (3.5-5.2); Alkaline Phosphatase 100 IU/L (40-130); Anion Gap 15.4 (5-19); Aspartate Amino Transferase 16 U/L (0-40); Blood Urea Nitrogen 23 mg/dL (6-20); Calcium 8.9 mg/dL (8.5-10.5); Carbon Dioxide 25 mmol/L (22-29); Chloride 102 mmol/L (98-107); Creatinine Clr Calc Pharmacy 93.4858; Globulin 4.3 g/dL (1.3-4.6); Glomerular Filtration Rate 63.8 mL/min (90-130); Glucose 156 mg/dL (65-115); Osmolality Calculated 293 mOsm/kg (285-295); Potassium 4.4 mmol/L (3.5-5.1); Sodium 138 mmol/L (136-145); Total Bilirubin 0.3 mg/dL (0.15-1.2); Total Protein 7.7 g/dL (6.6-8.7)
[2021-02-04 06:33] LABS: Glucose Point of Care 172 mg/dL (70-110)
[2021-02-04] MEDS: hyDRALAzine 50 mg Tablet 100 MG PO ×3 (08:11→20:34)
[2021-02-04] MEDS: atorvastatin 40 mg Tablet PO (08:11)
[2021-02-04] MEDS: metroNIDAZOLE 500 MG Tablet PO ×3 (08:11→20:35)
[2021-02-04] MEDS: metoprolol tartrate 25 mg Tablet PO ×2 (08:11→20:34)
[2021-02-04] MEDS: pantoprazole DR 40 mg Tablet PO (08:12)
[2021-02-04] MEDS: enoxaparin 120 mg/0.8 mL Syringe SUBCUT ×2 (08:12→20:34)
--- NOTE | 2021-02-04 08:20 | PC.NURSE ---
wound vac alarm stated suction was occluded. assembly instructions writer undressed patient's foot and found a huge blood clot blocking the suction. charge nurse Katiuska notified. Dr Burgos will change wound vac dressing today. assembly instructions writer and charge nurse cleaned foot and applied 4x4 and kerlix to foot until Dr Burgos sees patient.
--- NOTE | 2021-02-04 09:03 | PM.PN ---
Subjective Subjective: Interval history: atient seen bedside this morning doing well, tolerating regular diet. Denies any pain to the right foot. Turned off, lost its seal earlier this morning. Patient denies any subjective nausea, vomiting, fever, chills, shortness of breath or chest pain. Vitals/I&O/Wt Last Vital Signs Temp 98.0 F 02/04/21 08:22 Pulse 69 02/04/21 08:22 Resp 15 02/04/21 08:22 BP 165/102 02/04/21 08:22 Pulse Ox 97 02/04/21 08:22 02/03/21 02/04/21 02/04/21 22:59 06:59 14:59 Intake Total 50 / 840 400 / 1240 50 / 50 Output Total 1250 / 1825 950 / 2775 Balance -1200 / -985 -550 / -1535 50 / 50 Physical Exam Narrative: EXAM NARRATIVE: Patient is alert and oriented ?3 and in no acute distress. The following is a focused bilateral lower extremity exam. VASCULAR: Dorsalis pedis palpable +2 bilaterally, posterior tibial arteries palpable +2 bilaterally. Capillary refill time less than 3 seconds to the distal hallux bilaterally. Calf is supple and nontender proximally and distally. Focal edema to the right hallux and edema to the right foot and leg. NEUROLOGICAL: Protective sensation intact 0/10 sites, tested with [place] Misti monofilament to bilateral feet. DERMATOLOGICAL: Approximately 50 cc of serosanguineous drainage in the wound VAC canister. Wound VAC dressing was taken down, no maceration tissue, fibrogranular base without obvious necrosis, no purulent drainage at either the wounds. MUSCULOSKELETAL: No pain with posterior calf squeeze bilaterally. No pain with palpation or debridement of the right foot wound secondary to neuropathy. Data : 02/04/21 05:27 02/04/21 05:27 Micro: Microbiology 01/29/21 21:15 Blood Culture - Final Blood NO GROWTH AFTER 5 DAYS 01/29/21 21:14 Blood Culture - Final Blood NO GROWTH AFTER 5 DAYS 01/31/21 07:32 Gram Stain - Final Foot - Right Tissue Culture - Final Staphylococcus aureus 01/31/21 07:31 Gram Stain - Final Foot - Right Tissue Culture - Final Staphylococcus aureus A&P Assessment and plan (1) Osteomyelitis of toe of right foot: Status: Acute (2) Cellulitis: Status: Acute Qualifiers: Site of cellulitis: other site Qualified Code(s): L03.818 - Cellulitis of other sites (3) Diabetes mellitus with polyneuropathy: Status: Acute Qualifiers: Diabetes mellitus type: type 2 Qualified Code(s): E11.42 - Type 2 diabetes mellitus with diabetic polyneuropathy Mr. Anthony 50-year-old diabetic male with cellulitis and wound probes to bone right foot. 01/31/2021 incision and debridement with soft tissue and bone biopsy right foot 02/03/2020 1 repeat debridement and application of wound VAC to the right foot Bone biopsy and soft tissue cultures both growing staph aureus Recommend PICC line and long-term IV antibiotics for osteomyelitis guided by bone culture Recommend home health referral Patient will require wound care referral for management of his wound after discharge From my standpoint patient would be okay for discharge home once intraoperative cultures are resulted and long-term antibiotic selection has been determined. I would anticipate PICC line, long-term IV antibiotics minimum 6 weeks, wound VAC and wound care clinic follow-up after this hospitalization. New wound VAC dressing changed with granulafoam directly to wound base and a bridge from the instep and subfirst metatarsal head to the main wound, wound VAC excellent suction with excellent seal set at 125 mm of continuous negative pressure. Plan for wound VAC dressing change 3 times weekly. Will need to have this current dressing change by Friday Attestations Medical Necessity Statement*: Diabetic foot infection with osteomyelitis Coding Level of Care Code Acute Legal Transcriber for [facility] Mara Diagnoses Osteomyelitis of toe of right foot M86.9 Cellulitis L03.818 Site of cellulitis: other site Diabetes mellitus with polyneuropathy E11.42 Diabetes mellitus type: type 2
--- NOTE | 2021-02-04 11:32 | P.PN_ITS ---
Subjective Subjective: Interval history: Patient was seen this morning, he tells me that he did not get a lot of sleep overnight, had his dressing changes by Dr. Burgos this morning no fevers, no chills, no nausea, no diarrhea Vitals/I&O/Wt Last Vital Signs Temp 98.0 F 02/04/21 08:22 Pulse 69 02/04/21 08:22 Resp 15 02/04/21 08:22 BP 165/102 02/04/21 08:22 Pulse Ox 97 02/04/21 08:22 02/03/21 02/04/21 02/04/21 22:59 06:59 14:59 Intake Total 50 / 840 400 / 1240 550 / 550 Output Total 1250 / 1825 950 / 2775 Balance -1200 / -985 -550 / -1535 550 / 550 Physical Exam Const: COMMON NORMALS: no acute distress and patient oriented x3 Eye: OTHER: Right eye, conjunctiva, injection, Resp: COMMON NORMALS: normal respiratory effort, No retractions, No use of accessory muscles and clear to auscultation bilaterally AUSCULTATION: clear to auscultation bilaterally Cardio: COMMON NORMALS: regular rate, regular rhythm, S1 normal heart sound present and S2 normal heart sound present RATE: regular rate RHYTHM: regular rhythm HEART SOUNDS: S1 normal heart sound present and S2 normal heart sound present GI: COMMON NORMALS: Normal to inspection, nondistended, normoactive bowel sounds present, Soft to palpation and non-tender PALPATION: Yes Soft to pa lpation Extremity: OTHER: Right lower extremity, wrapped, and Kerlix, wound VAC in place Neuro: COMMON NORMALS: patient oriented x3 Psych: COMMON NORMALS: mental status grossly normal Data : 02/04/21 05:27 02/04/21 05:27 Micro: Microbiology 01/29/21 21:15 Blood Culture - Final Blood NO GROWTH AFTER 5 DAYS 01/29/21 21:14 Blood Culture - Final Blood NO GROWTH AFTER 5 DAYS 01/31/21 07:32 Gram Stain - Final Foot - Right Tissue Culture - Final Staphylococcus aureus 01/31/21 07:31 Gram Stain - Final Foot - Right Tissue Culture - Final Staphylococcus aureus A&P Assessment and plan (1) Osteomyelitis of toe of right foot: Status: Acute (2) Cellulitis: Status: Acute Qualifiers: Site of cellulitis: other site Qualified Code(s): L03.818 - Cellulitis of other sites (3) Saphenous vein clot: Status: Acute (4) Acute conjunctivitis, right eye: Status: Acute Additional A&P Information subacute swelling of the right foot, with CT suggestive of cellulitis without any underlying abscess, diffuse subcutaneous emphysema overlying the first met atarsophalangeal joint, raising concern also for underlying joint space infection. Erosive changes over the first phalanx which may be related to underlying osteomyelitis. Status post Incision and debridement of devitalized soft tissue, epidermis, dermis, subcutaneous tissue, muscle tendon and bone right foot. Right foot bone biopsy Status post Incision and debridement down to including bone with wound VAC application right foot Implants: Wound VAC dressing with granulafoam Continue empiric antibiotic coverage with cefepime, vancomycin and p.o. Flagyl for additional anaerobic coverage ESR greater than 120, CRP 163 FE shows no evidence of significant arterial obstruction Podiatry consult PICC line placement on Friday, likely requires vancomycin 2 g every 24 hours for 6 weeks, dose based on Vanco trough, keep vancomycin trough between 15-20, and Levaquin or ciprofloxacin Has a extensive nonocclusive thrombus of the right greater saphenous vein from abductor hiatus to ankle, will manage as likely DVT given how extensive, on therapeutic Lovenox, switch to Eliquis on discharge KARI, creatinine 1.1, monitor renal function, her urine output Right eye conjunctivitis, continue tobramycin, no evidence of acute angle- closure glaucoma, no eye pain, no photopsia, no floaters, pupils equal round reactive to light, no eye pain Diabetes mellitus: Insulin sliding scale while remains inpatient. Hypertension: Continue home doses of hydralazine, clonidine Sleep apnea: Continue BiPAP use as needed, currently saturating 98% on room air. DVT prophylaxis: Lovenox Full code. Plan Will arrange home health care for IV antibiotics, wound VAC, PICC line to be placed on Friday, hopefully can be discharged in the next 24 to 48 hours Attestations Medical Necessity Statement*: Patient requires hospitalization for right foot osteomyelitis status post debridement, deep tissue infection, requiring IV antibiotics, with saphenous vein clot, PICC line to be placed, long-term IV antibiotics, wound VAC Coding Level of Care Code Acute Air Traffic Coordinator for [facility] Fwd Diagnoses Osteomyelitis of toe of right foot M86.9 Cellulitis L03.818 Site of cellulitis: other site Saphenous vein clot I82.819 Acute conjunctivitis, right eye H10.31
[2021-02-04 11:48] LABS: Glucose Point of Care 192 mg/dL (70-110)
--- NOTE | 2021-02-04 16:45 | PC.NURSE ---
notified Dr Burgos that patient's wound vac states blockage, handbook writer and charge nurse took dressing off and found huge blood clot, put wound vac back on and it still states blockage.
[2021-02-04 17:03] LABS: Glucose Point of Care 171 mg/dL (70-110)
--- NOTE | 2021-02-04 18:25 | PC.NURSE ---
ticket writer applied 4x4 and kerlix to patient's wound vac area. wound vac off as instructed by Dr Burgos.
[2021-02-04] MEDS: NIFEdipine ER (24 hr) 30 mg Tablet 60 MG PO (20:35)
[2021-02-04 20:36] LABS: Glucose Point of Care 196 mg/dL (70-110)
[2021-02-05] VITALS (7 sets, daily range): BP systolic 105–143; BP diastolic 64–81; PULSE 76–82; RESP 16–18; TEMP 36.6–36.8; O2SAT 96–99
[2021-02-05] MEDS: cefepime 2,000 MG in sodium chloride 0.9% (plus) 50 ML 100 MG IV ×2 (04:17→15:28)
[2021-02-05] MEDS: cloNIDine 0.1 mg Tablet PO ×2 (04:18→15:28)
[2021-02-05 06:32] LABS: Basophils # 0.1 10^3/uL (0.0-0.1); Basophils % 0.7 %; Eosinophils # 0.2 10^3/uL (0.0-0.8); Eosinophils % 1.3 %; Hematocrit 27.9 % (42.0-52.0); Lymphocytes # 2.3 10^3/uL (0.8-4.8); Mean Corpuscular HGB Conc 32.3 g/dL (30.0-36.0); Mean Corpuscular Hemoglobin 28.9 pg (28.0-34.0); Mean Corpuscular Volume 89.7 fl (80-94); Mean Platelet Volume 9.7 fL (7.4-10.4); Monocytes # 0.9 10^3/uL (0.2-0.9); Monocytes % 6.5 %; Neutrophils # 10.03 10^3/uL (1.8-7.7); Neutrophils % 73.3 %; Nucleated Red Blood Cells % 0 %; Platelet Count 421 10^3/cmm (130-400); Red Blood Count 3.11 10^6/uL (4.1-5.3); Red Cell Distribution Width 13.6 % (12.1-15.1); White Blood Count 13.7 10^3/uL (4.0-10.0)
[2021-02-05 06:37] LABS: Glucose Point of Care 175 mg/dL (70-110)
--- NOTE | 2021-02-05 07:02 | PM.PN ---
Subjective Subjective: Interval history: Patient seen bedside this morning doing well, tolerating regular diet. Denies any pain to the right foot. Blockage in wound VAC line overnight. Patient denies any subjective nausea, vomiting, fever, chills, shortness of breath or chest pain. Vitals/I&O/Wt Last Vital Signs Temp 98.3 F 02/05/21 03:38 Pulse 79 02/05/21 03:38 Resp 18 02/05/21 03:38 BP 130/75 02/05/21 04:18 Pulse Ox 97 02/05/21 03:38 02/04/21 02/05/21 02/05/21 22:59 06:59 14:59 Intake Total 530 / 1080 Output Total 550 / 550 575 / 1125 Balance -20 / 530 -575 / -45 Physical Exam Narrative: EXAM NARRATIVE: Patient is alert and oriented ?3 and in no acute distress. The following is a focused bilateral lower extremity exam. VASCULAR: Dorsalis pedis palpable +2 bilaterally, posterior tibial arteries palpable +2 bilaterally. Capillary refill time less than 3 seconds to the distal hallux bilaterally. Calf is supple and nontender proximally and distally. Focal edema to the right hallux and edema to the right foot and leg. NEUROLOGICAL: Protective sensation intact 0/10 sites, tested with [place] Misti monofilament to bilateral feet. DERMATOLOGICAL: Approximately 150 cc of serosanguineous drainage in the wound VAC canister. Wound VAC dressing was taken down, no maceration tissue, fibrogranular base without obvious necrosis, no purulent drainage at either the wounds. MUSCULOSKELETAL: No pain with posterior calf squeeze bilaterally. No pain with palpation or debridement of the right foot wound secondary to neuropathy. Data : 02/05/21 05:43 02/05/21 05:43 A&P Assessment and plan (1) Osteomyelitis of toe of right foot: Status: Acute (2) Cellulitis: Status: Acute Qualifiers: Site of cellulitis: other site Qualified Code(s): L03.818 - Cellulitis of other sites (3) Diabetes mellitus with polyneuropathy: Status: Acute Qualifiers: Diabetes mellitus type: type 2 Qualified Code(s): E11.42 - Type 2 diabetes mellitus with diabetic polyneuropathy Mr. Anthony 50-year-old diabetic male with cellulitis and wound probes to bone right foot. 01/31/2021 incision and debridement with soft tissue and bone biopsy right foot 02/03/2020 1 repeat debridement and application of wound VAC to the right foot Bone biopsy and soft tissue cultures both growing staph aureus Recommend PICC line and long-term IV antibiotics for osteomyelitis guided by bone culture Recommend home health referral Patient will require wound care referral for management of his wound after discharge From my standpoint patient would be okay for discharge home once intraoperative cultures are resulted and long-term antibiotic selection has been determined. I would anticipate PICC line, long-term IV antibiotics minimum 6 weeks, wound VAC and wound care clinic follow-up after this hospitalization. Wound VAC blockage overnight, unable to troubleshoot with nursing staff. I remove the wound VAC dressing this morning, will do Dakin's wet-to-dry with quarter percent Dakin solution twice daily, will reattempt wound VAC. Attestations Medical Necessity Statement*: Diabetic foot infection Coding Level of Care Code Acute Cuprous Chloride Helper for [facility] Mara Diagnoses Osteomyelitis of toe of right foot M86.9 Cellulitis L03.818 Site of cellulitis: other site Diabetes mellitus with polyneuropathy E11.42 Diabetes mellitus type: type 2
[2021-02-05 07:05] LABS: Alanine Aminotransferase 17 U/L (0-41); Albumin Level 2.9 g/dL (3.5-5.2); Alkaline Phosphatase 89 IU/L (40-130); Aspartate Amino Transferase 15 U/L (0-40); Blood Urea Nitrogen 24 mg/dL (6-20); Calcium 8.6 mg/dL (8.5-10.5); Carbon Dioxide 25 mmol/L (22-29); Chloride 102 mmol/L (98-107); Globulin 4.3 g/dL (1.3-4.6); Glomerular Filtration Rate 49.3 mL/min (90-130); Glucose 164 mg/dL (65-115); Magnesium 2.2 mg/dL (1.7-2.3); Osmolality Calculated 292 mOsm/kg (285-295); Phosphorus 3.3 mg/dL (2.5-4.5); Sodium 137 mmol/L (136-145); Total Bilirubin 0.3 mg/dL (0.15-1.2); Total Protein 7.2 g/dL (6.6-8.7)
[2021-02-05 07:11] LABS: Anion Gap 14.3 (5-19); Potassium 4.3 mmol/L (3.5-5.1)
[2021-02-05] MEDS: metroNIDAZOLE 500 MG Tablet PO ×3 (08:07→20:59)
[2021-02-05] MEDS: atorvastatin 40 mg Tablet PO (08:07)
[2021-02-05] MEDS: sodium hypochlorite 0.25% Btl 473 mL 1 APPLIC TOPICAL ×2 (08:08→16:37)
[2021-02-05] MEDS: metoprolol tartrate 25 mg Tablet PO ×2 (08:08→20:59)
[2021-02-05] MEDS: pantoprazole DR 40 mg Tablet PO (08:08)
[2021-02-05] MEDS: hyDRALAzine 50 mg Tablet 100 MG PO ×3 (08:08→20:58)
[2021-02-05] MEDS: enoxaparin 120 mg/0.8 mL Syringe SUBCUT ×2 (08:08→21:00)
--- NOTE | 2021-02-05 09:18 | PC.CHAP ---
Pastoral Care Encounter/Spiritual Assessment Type of Contact [] Declined helicopter dispatcher visit [] Patient/Family/Request visit [] Outpatient visit [] Follow-up visit [] Physician referral [] Code/Alert [x] Routine visit [] Staff referral [] Actively dying [] Patient sleeping [] Family support [] [] Out of room [] Palliative care [] [] Receiving care in room [] Pre-surgical visit [] Trauma [] Long length of stay [] ICU visit [] Other: Relational/Emotional Strength [x] Patient feels connected with others/family/visitors/staff [] Distress [] Loneliness/isolation [] Abandonment Spirituality of Patient [x] Person of Fior [] Attends Orthodoxy of their Fior [x] Believes in Prayer [] Reads Bible or Latter Day materials [] There are Spiritual issues to be addressed Pipe Joints Supervisor Interventions [x] Prayer [x] Active listening [x] Non-anxious presence [x] Spiritual/emotional support [] Crisis/trauma care x [] Spiritual counseling [] Bereavement support [] Provided bereavement packet [] Provided Bible/devotional materials [] Provided toy/stuffed animal, coloring book to patient or family member [] Provided Communion [] Anointing/[place] [] Salvation [x] Completed spiritual assessment [] Other: Impact on Illness or Injury [] Angry [] Fearful [] Anxious [] Often cries [] Exhaustion [] Unable to work [] Unable to attend sabianist [] Unable to walk/stand [] Unable to read [] Unable to drive [] Unable to eat/drink [] Unable to sleep [] Unable to be with family [] Patient intubated [] Other: Summary patient has less pain today Time spent with patient 15 min
--- NOTE | 2021-02-05 10:42 | P.PN_ITS ---
Subjective Subjective: Interval history: Patient was seen and examined this morning, no acute events overnight.Overall he is doing good. Vitals and labs have been reviewed. Medications: Reviewed: Yes Vitals/I&O/Wt Last Vital Signs Temp 98.2 F 02/05/21 07:39 Pulse 82 02/05/21 07:39 Resp 16 02/05/21 07:39 BP 137/81 02/05/21 07:39 Pulse Ox 97 02/05/21 07:39 02/04/21 02/05/21 02/05/21 22:59 06:59 14:59 Intake Total 530 / 1080 910 / 910 Output Total 550 / 550 575 / 1125 250 / 250 Balance -20 / 530 -575 / -45 660 / 660 Physical Exam Const: COMMON NORMALS: patient oriented x3 HENMT: COMMON NORMALS: normocephalic and atraumatic HEAD & SCALP: normocephalic and atraumatic Resp: COMMON NORMALS: clear to auscultation bilaterally AUSCULTATION: clear to auscultation bilaterally Cardio: COMMON NORMALS: regular rate, regular rhythm, S1 normal heart sound present, S2 normal heart sound present, No gallops present (Cardio), No murmurs present (Cardio), No rub (Cardio) and Peripheral pulses 2+ throughout RATE: regular rate RHYTHM: regular rhythm HEART SOUNDS: S1 normal heart sound present and S2 normal heart sound present PERIPHERAL PULSES: Peripheral pulses 2+ throughout GI: COMMON NORMALS: Normal to inspection, nondistended, normoactive bowel sounds present, Soft to palpation, non-tender, No hepatosplenomegaly present and no masses AUSCULTATION: Yes normoactive bowel sounds PALPATION: Yes Soft to palpation and Yes No hepatosplenomegaly present RECTAL EXAM: Yes deferred Extremity: COMMON NORMALS: no clubbing, cyanosis or edema and no pedal edema OTHER: lt feet clean dressing Neuro: COMMON NORMALS: patient oriented x3 Data : 02/05/21 05:43 02/05/21 05:43 A&P Assessment and plan (1) Osteomyelitis of toe of right foot: Status: Acute (2) Cellulitis: Status: Acute Qualifiers: Site of cellulitis: other site Qualified Code(s): L03.818 - Cellulitis of other sites (3) Saphenous vein clot: Status: Acute (4) Acute conjunctivitis, right eye: Status: Acute Additional A&P Information subacute swelling of the right foot, with CT suggestive of cellulitis without any underlying abscess, diffuse subcutaneous emphysema overlying the first metatarsophalangeal joint, raising concern also for underlying joint space infection. Erosive changes over the first phalanx which may be related to under lying osteomyelitis. Status post Incision and debridement of devitalized soft tissue, epidermis, margarita mis, subcutaneous tissue, muscle tendon and bone right foot. Right foot bone biopsy Status post Incision and debridement down to including bone with wound VAC application right foot Implants: Wound VAC dressing with granulafoam Continue empiric antibiotic coverage with cefepime, vancomycin and p.o. Flagyl for additional anaerobic coverage ESR greater than 120, CRP 163 FE shows no evidence of significant arterial obstruction Podiatry consult S/P PICC line placement : likely requires vancomycin 2 g every 24 hours for 6 weeks, dose based on Vanco trough, keep vancomycin trough between 15-20, and Levaquin or ciprofloxacin Has a extensive nonocclusive thrombus of the right greater saphenous vein from abductor hiatus to ankle, will manage as likely DVT given how extensive, on therapeutic Lovenox, switch to Eliquis on discharge KARI, creatinine 1.1, monitor renal function, her urine output Right eye conjunctivitis, continue tobramycin, no evidence of acute angle- closure glaucoma, no eye pain, no photopsia, no floaters, pupils equal round reactive to light, no eye pain Diabetes mellitus: Insulin sliding scale while remains inpatient. Hypertension: Continue home doses of hydralazine, clonidine Sleep apnea: Continue BiPAP use as needed, currently saturating 98% on room air. DVT prophylaxis: Lovenox Full code. Plan Will arrange home health care for IV antibiotics, wound VAC, PICC line to be placed on Friday, hopefully can be discharged in the next 24 to 48 hours Attestations Medical Necessity Statement*: Patient needs to be in hospital for I.V abxs. 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
[2021-02-05 12:03] LABS: Glucose Point of Care 168 mg/dL (70-110)
--- NOTE | 2021-02-05 12:22 | XR_ITS ---
WS: [id number] Exam: XR chest 1V portable [id number] Date/Time of Exam: 02/05/2021 1:06 PM Reason For Exam: Post PICC placement Right-sided PICC line has been placed and appears to end in the lower one third of the SVC in good po sition. The right lung is clear and fully expanded. Parts of the left lung zone are out of the field- of-view. Cardiomediastinal structures are unremarkable for technique. There may be some left perihila r infiltrate present XR/XR chest 1V portable [id number] IMPRESSION: 1. Right-sided PICC line in satisfactory location. 2. There may be some left perihilar infiltrate however parts of the left lung z one are out of the [id number].
[2021-02-05 16:56] LABS: Glucose Point of Care 178 mg/dL (70-110)
[2021-02-05] MEDS: NIFEdipine ER (24 hr) 30 mg Tablet 60 MG PO (20:59)
[2021-02-05 21:07] LABS: Glucose Point of Care 223 mg/dL (70-110)
[2021-02-06] VITALS (15 sets, daily range): BP systolic 111–153; BP diastolic 58–75; PULSE 70–108; RESP 16–18; TEMP 36.2–37; O2SAT 96–100
[2021-02-06] MEDS: cloNIDine 0.1 mg Tablet PO ×2 (03:26→14:39)
[2021-02-06] MEDS: cefepime 2,000 MG in sodium chloride 0.9% (plus) 50 ML 100 MG IV ×2 (03:35→14:40)
[2021-02-06 05:35] LABS: Basophils # 0.1 10^3/uL (0.0-0.1); Basophils % 0.7 %; Eosinophils # 0.2 10^3/uL (0.0-0.8); Eosinophils % 1.8 %; Hematocrit 22.7 % (42.0-52.0); Hemoglobin 7.2 g/dL (11.7-16.6); Lymphocytes # 2.3 10^3/uL (0.8-4.8); Lymphocytes % 21.7 %; Mean Corpuscular HGB Conc 31.7 g/dL (30.0-36.0); Mean Corpuscular Hemoglobin 28.3 pg (28.0-34.0); Mean Corpuscular Volume 89.4 fl (80-94); Mean Platelet Volume 9.8 fL (7.4-10.4); Monocytes # 0.7 10^3/uL (0.2-0.9); Monocytes % 6.9 %; Neutrophils # 7.25 10^3/uL (1.8-7.7); Neutrophils % 67.6 %; Nucleated Red Blood Cells % 0 %; Platelet Count 395 10^3/cmm (130-400); Red Blood Count 2.54 10^6/uL (4.1-5.3); White Blood Count 10.7 10^3/uL (4.0-10.0)
[2021-02-06 06:00] LABS: Alanine Aminotransferase 13 U/L (0-41); Albumin Level 2.9 g/dL (3.5-5.2); Alkaline Phosphatase 77 IU/L (40-130); Anion Gap 15.1 (5-19); Aspartate Amino Transferase 14 U/L (0-40); Blood Urea Nitrogen 25 mg/dL (6-20); Calcium 8.2 mg/dL (8.5-10.5); Carbon Dioxide 23 mmol/L (22-29); Chloride 102 mmol/L (98-107); Globulin 3.4 g/dL (1.3-4.6); Glomerular Filtration Rate 58.2 mL/min (90-130); Glucose 171 mg/dL (65-115); Magnesium 2.1 mg/dL (1.7-2.3); Osmolality Calculated 290 mOsm/kg (285-295); Phosphorus 3.6 mg/dL (2.5-4.5); Potassium 4.1 mmol/L (3.5-5.1); Sodium 136 mmol/L (136-145); Total Bilirubin 0.2 mg/dL (0.15-1.2); Total Protein 6.3 g/dL (6.6-8.7)
[2021-02-06 06:08] LABS: Creatinine Clr Calc Pharmacy 86.2946
[2021-02-06 06:42] LABS: Glucose Point of Care 187 mg/dL (70-110)
[2021-02-06] MEDS: hyDRALAzine 50 mg Tablet 100 MG PO ×3 (08:04→20:44)
[2021-02-06] MEDS: metroNIDAZOLE 500 MG Tablet PO ×3 (08:04→20:44)
[2021-02-06] MEDS: pantoprazole DR 40 mg Tablet PO (08:04)
[2021-02-06] MEDS: metoprolol tartrate 25 mg Tablet PO ×2 (08:04→19:33)
[2021-02-06] MEDS: atorvastatin 40 mg Tablet PO (08:04)
[2021-02-06] MEDS: sodium hypochlorite 0.25% Btl 473 mL 1 APPLIC TOPICAL ×2 (08:05→19:15)
--- NOTE | 2021-02-06 08:12 | PC.NURSE ---
notified Dr Espinoza that patient's hgb is 7.[address] Espinoza, hold Lovenox and order 1 unit blood. freelance copywriter put order in for 1 unit of blood and type and screen.
[2021-02-06 11:11] LABS: Glucose Point of Care 276 mg/dL (70-110)
[2021-02-06] MEDS: sodium chloride 0.9% (100 ml) 100 ML 50 ML (11:44)
--- NOTE | 2021-02-06 16:02 | P.PN_ITS ---
Subjective Subjective: Interval history: Patient was seen and examined this morning,Hb has dropped to 7.2 this morning, therapeutic Ac has been stopped. PLan is to transfuse 1 u prbc. Medications: Reviewed: Yes Vitals/I&O/Wt Last Vital Signs Temp 97.8 F 02/06/21 15:28 Pulse 99 02/06/21 15:28 Resp 17 02/06/21 15:28 BP 114/70 02/06/21 15:28 Pulse Ox 97 02/06/21 15:28 02/06/21 02/06/21 02/06/21 06:59 14:59 22:59 Intake Total 300 / 1500 1310 / 1310 50 / 1360 Output Total 600 / 600 Balance 300 / 1250 710 / 710 50 / 760 Physical Exam Const: COMMON NORMALS: patient oriented x3 HENMT: COMMON NORMALS: normocephalic and atraumatic HEAD & SCALP: normocephalic and atraumatic Resp: COMMON NORMALS: clear to auscultation bilaterally AUSCULTATION: clear to auscultation bilaterally Cardio: COMMON NORMALS: regular rate, regular rhythm, S1 normal heart sound present, S2 normal heart sound present, No gallops present (Cardio), No murmurs present (Cardio), No rub (Cardio) and Peripheral pulses 2+ throughout RATE: regular rate RHYTHM: regular rhythm HEART SOUNDS: S1 normal heart sound present and S2 normal heart sound present PERIPHERAL PULSES: Peripheral pulses 2+ throughout GI: COMMON NORMALS: Normal to inspection, nondistended, normoactive bowel sounds present, Soft to palpation, non-tender, No hepatosplenomegaly present and no masses AUSCULTATION: Yes normoactive bowel sounds PALPATION: Yes Soft to palpation and Yes No hepatosplenomegaly present RECTAL EXAM: Yes deferred Extremity: COMMON NORMALS: no clubbing, cyanosis or edema and no pedal edema OTHER: lt feet clean dressing Neuro: COMMON NORMALS: patient oriented x3 Data : 02/06/21 04:55 02/06/21 04:55 A&P Assessment and plan (1) Osteomyelitis of toe of right foot: Status: Acute (2) Cellulitis: Status: Acute Qualifiers: Site of cellulitis: other site Qualified Code(s): L03.818 - Cellulitis of other sites (3) Saphenous vein clot: Status: Acute (4) Acute conjunctivitis, right eye: Status: Acute (5) Anemia: Status: Acute Additional A&P Information subacute swelling of the right foot, with CT suggestive of cellulitis without any underlying abscess, diffuse subcutaneous emphysema overlying the first metatarsophalangeal joint, raising concern also for underlying joint space infection. Erosive changes over the first phalanx which may be related to underlying osteomyelitis. Status post Incision and debridement of devitalized soft tissue, epidermis, dermis, subcutaneous tissue, muscle tendon and bone right foot. Right foot bone biopsy Status post Incision and debridement down to including bone with wound VAC application right foot Implants: Wound VAC dressing with granulafoam Continue empiric antibiotic coverage with cefepime, vancomycin and p.o. Flagyl for additional anaerobic coverage ESR greater than 120, CRP 163 FE shows no evidence of significant arterial obstruction Podiatry consult S/P PICC line placement : likely requires vancomycin 2 g every 24 hours for 6 weeks, dose based on Vanco trough, keep vancomycin trough between 15-20, and Levaquin or ciprofloxacin # Extensive nonocclusive thrombus of the right greater saphenous vein from abductor hiatus to ankle, will manage as likely DVT given how extensive, initially on therapeutic Lovenox, has been stopped as patient h&h has dropped significantly.Deny any BRBPR,Batsheva,hematuria. #Normocytic Anemia : Currently H/H : 7.07/03.Plan is to transfuse 1 u prbc. Monitor CBC KARI, creatinine 1.1, monitor renal function, her urine output Right eye conjunctivitis, continue tobramycin, no evidence of acute angle- closure glaucoma, no eye pain, no photopsia, no floaters, pupils equal round reactive to light, no eye pain Diabetes mellitus: Insulin sliding scale while remains inpatient. Hypertension: Continue home doses of hydralazine, clonidine Sleep apnea: Continue BiPAP use as needed, currently saturating 98% on room air. DVT prophylaxis: Lovenox Full code. Plan Will arrange home health care for IV antibiotics, wound VAC, PICC line to be placed on Friday, hopefully can be discharged in the next 24 to 48 hours Attestations Medical Necessity Statement*: Patient needs to be in hospital for the need of blood transfusion. Coding Level of Care Code Acute Pl Sql Developer for [facility] Fwd Exam Detailed Diagnoses Osteomyelitis of toe of right foot M86.9 Cellulitis L03.818 Site of cellulitis: other site Saphenous vein clot I82.819 Acute conjunctivitis, right eye H10.31 Anemia D64.9
[2021-02-06 17:10] LABS: Glucose Point of Care 224 mg/dL (70-110)
--- NOTE | 2021-02-06 19:24 | P.PN_ITS ---
Subjective Subjective: Interval history: Patient seen bedside this evening doing well, tolerating regular diet. Denies any pain to the right foot. Blockage in wound VAC line overnight. Patient denies any subjective nausea, vomiting, fever, chills, shortness of breath or chest pain. Vitals/I&O/Wt Last Vital Signs Temp 97.8 F 02/06/21 15:28 Pulse 99 02/06/21 15:28 Resp 17 02/06/21 15:28 BP 114/70 02/06/21 15:28 Pulse Ox 97 02/06/21 15:28 02/06/21 02/06/21 02/06/21 06:59 14:59 22:59 Intake Total 300 / 1500 1310 / 1310 290 / 1600 Output Total 600 / 600 Balance 300 / 1250 710 / 710 290 / 1000 Physical Exam Narrative: EXAM NARRATIVE: Patient is alert and oriented ?3 and in no acute distress. The following is a focused bilateral lower extremity exam. VASCULAR: Dorsalis pedis palpable +2 bilaterally, posterior tibial arteries palpable +2 bilaterally. Capillary refill time less than 3 seconds to the distal hallux bilaterally. Calf is supple and nontender proximally and distally. Focal edema to the right hallux and edema to the right foot and leg. NEUROLOGICAL: Protective sensation intact 0/10 sites, tested with Cocoa Misti monofilament to bilateral feet. DERMATOLOGICAL: Approximately 150 cc of serosanguineous drainage in the wound VAC canister. Wound VAC dressing was taken down, no maceration tissue, f ibrogranular base without obvious necrosis, no purulent drainage at either the wounds. MUSCULOSKELETAL: No pain with posterior calf squeeze bilaterally. No pain with palpation or debridement of the right foot wound secondary to neuropathy. Data : 02/06/21 04:55 02/06/21 04:55 A&P Assessment and plan (1) Osteomyelitis of toe of right foot: Status: Acute (2) Cellulitis: Status: Acute Qualifiers: Site of cellulitis: other site Qualified Code(s): L03.818 - Cellulitis of other sites (3) Diabetes mellitus with polyneuropathy: Status: Acute Qualifiers: Diabetes mellitus type: type 2 Qualified Code(s): E11.42 - Type 2 diabetes mellitus with diabetic polyneuropathy Mr. Anthony 50-year-old diabetic male with cellulitis and wound probes to bone right foot. 01/31/2021 incision and debridement with soft tissue and bone biopsy right foot 02/03/2020 1 repeat debridement and application of wound VAC to the right foot Bone biopsy and soft tissue cultures both growing staph aureus Recommend PICC line and long-term IV antibiotics for osteomyelitis guided by bone culture Recommend home health referral Patient will require wound care referral for management of his wound after discharge From my standpoint patient would be okay for discharge home once intraoperative cultures are resulted and long-term antibiotic selection has been determined. I would anticipate PICC line, long-term IV antibiotics minimum 6 weeks, wound VAC and wound care clinic follow-up after this hospitalization. Patient okay for discharge from podiatry standpoint. Wounds are improving with increased granulation tissue, reapplied wound VAC dressing with excellent seal set at 125 mm of negative pressure continuous. Would like to continue wound VAC therapy should he go to a long-term. Should he be discharged home would like him to follow-up in the wound care clinic [facility], she to be discharged to a long-term facility will then have him follow-up in podiatry clinic weekly. Attestations Medical Necessity Statement*: Diabetic foot infection Coding Level of Care Code Acute Finance Assistant for [facility] Diagnoses Osteomyelitis of toe of right foot M86.9 Cellulitis L03.818 Site of cellulitis: other site Diabetes mellitus with polyneuropathy E11.42 Diabetes mellitus type: type 2
[2021-02-06] MEDS: NIFEdipine ER (24 hr) 30 mg Tablet 60 MG PO (20:45)
[2021-02-06 20:59] LABS: Glucose Point of Care 232 mg/dL (70-110)
[2021-02-07] VITALS (12 sets, daily range): BP systolic 112–166; BP diastolic 66–83; PULSE 71–88; RESP 16–18; TEMP 35.9–36.7; O2SAT 96–99
[2021-02-07] MEDS: cefepime 2,000 MG in sodium chloride 0.9% (plus) 50 ML 100 MG IV ×2 (03:41→15:51)
[2021-02-07] MEDS: cloNIDine 0.1 mg Tablet PO ×2 (03:45→15:52)
[2021-02-07 05:48] LABS: Basophils # 0.1 10^3/uL (0.0-0.1); Basophils % 0.7 %; Eosinophils # 0.2 10^3/uL (0.0-0.8); Eosinophils % 2.7 %; Hematocrit 23.4 % (42.0-52.0); Hemoglobin 7.6 g/dL (11.7-16.6); Lymphocytes # 1.7 10^3/uL (0.8-4.8); Lymphocytes % 19.9 %; Mean Corpuscular HGB Conc 32.5 g/dL (30.0-36.0); Mean Corpuscular Hemoglobin 29.1 pg (28.0-34.0); Mean Corpuscular Volume 89.7 fl (80-94); Mean Platelet Volume 9.5 fL (7.4-10.4); Monocytes # 0.5 10^3/uL (0.2-0.9); Monocytes % 6.2 %; Neutrophils # 5.93 10^3/uL (1.8-7.7); Neutrophils % 69.4 %; Nucleated Red Blood Cells % 0 %; Platelet Count 353 10^3/cmm (130-400); Red Blood Count 2.61 10^6/uL (4.1-5.3); White Blood Count 8.5 10^3/uL (4.0-10.0)
[2021-02-07 05:57] LABS: Alanine Aminotransferase 13 U/L (0-41); Albumin Level 2.8 g/dL (3.5-5.2); Alkaline Phosphatase 70 IU/L (40-130); Anion Gap 13.2 (5-19); Aspartate Amino Transferase 12 U/L (0-40); Blood Urea Nitrogen 26 mg/dL (6-20); Calcium 8.2 mg/dL (8.5-10.5); Carbon Dioxide 22 mmol/L (22-29); Chloride 107 mmol/L (98-107); Creatinine Clr Calc Pharmacy 93.4858; Globulin 3.7 g/dL (1.3-4.6); Glomerular Filtration Rate 63.8 mL/min (90-130); Glucose 167 mg/dL (65-115); Magnesium 2.2 mg/dL (1.7-2.3); Osmolality Calculated 295 mOsm/kg (285-295); Phosphorus 3.4 mg/dL (2.5-4.5); Potassium 4.2 mmol/L (3.5-5.1); Sodium 138 mmol/L (136-145); Total Bilirubin 0.2 mg/dL (0.15-1.2); Total Protein 6.5 g/dL (6.6-8.7)
[2021-02-07 06:49] LABS: Glucose Point of Care 176 mg/dL (70-110)
--- NOTE | 2021-02-07 07:37 | PC.NURSE ---
AM NOTE PT RESTING IN BED - DENIES NEEDS - PICC TO RIGHT UPPER FOREARM C/D/I - NOTED RIGHT FOOT TO HAVE KERLIX AND ROMAN WITH WOUND VAC IN PLACE WITH 125MM SUCTION/CONTINUOUSLY - NOTED RIGHT GREAT TOE TO HAVE EDEMA - WILL MONITOR
[2021-02-07] MEDS: metroNIDAZOLE 500 MG Tablet PO ×3 (07:42→20:42)
[2021-02-07] MEDS: metoprolol tartrate 25 mg Tablet PO ×2 (07:42→20:43)
[2021-02-07] MEDS: pantoprazole DR 40 mg Tablet PO (07:42)
[2021-02-07] MEDS: atorvastatin 40 mg Tablet PO (07:44)
[2021-02-07] MEDS: sodium hypochlorite 0.25% Btl 473 mL 1 APPLIC TOPICAL ×2 (09:37→20:43)
--- NOTE | 2021-02-07 10:38 | PC.NURSE ---
1030 1st UNIT OF PRBC STARTED AT 75ML/HR - PER THIS NURSE - VSS - PT STERLING WELL - EDUCATED TO S/S OF WHAT TO WATCH FOR - PT VERBALIZES UNDERSTANDING UNIT # [id number]
--- NOTE | 2021-02-07 10:47 | PC.NURSE ---
1ST UNIT 1ST UNIT OF PRBC INCREASED TO 125ML/HR - STERLING WELL - VSS - WILL CONTINUE TO MONITOR
[2021-02-07 11:07] LABS: Glucose Point of Care 193 mg/dL (70-110)
[2021-02-07] MEDS: sodium chloride 0.9% (100 ml) 100 ML (11:28)
[2021-02-07] MEDS: hyDRALAzine 50 mg Tablet 100 MG PO ×2 (13:50→20:42)
--- NOTE | 2021-02-07 15:17 | PM.PN ---
Subjective Subjective: Interval history: Patient was seen and examined this morning, last evening wound vac was placed back. S/P 1 U PRBC transfusion. Hb is 7.6. Plan is to transfuse another unit today. Medications: Reviewed: Yes Vitals/I&O/Wt Last Vital Signs Temp 96.6 F L 02/07/21 13:48 Pulse 79 02/07/21 13:48 Resp 18 02/07/21 13:48 BP 138/83 02/07/21 13:48 Pulse Ox 97 02/07/21 13:48 02/07/21 02/07/21 02/07/21 06:59 14:59 22:59 Intake Total 50 / 1650 850 / 850 Output Total 1175 / 1775 Balance -1125 / -125 850 / 850 Physical Exam Const: COMMON NORMALS: patient oriented x3 HENMT: COMMON NORMALS: normocephalic and atraumatic HEAD & SCALP: normocephalic and atraumatic Resp: COMMON NORMALS: clear to auscultation bilaterally AUSCULTATION: clear to auscultation bilaterally Cardio: COMMON NORMALS: regular rate, regular rhythm, S1 normal heart sound present, S2 normal heart sound present, No gallops present (Cardio), No murmurs present (Cardio), No rub (Cardio) and Peripheral pulses 2+ throughout RATE: regular rate RHYTHM: regular rhythm HEART SOUNDS: S1 normal heart sound present and S2 normal heart sound present PERIPHERAL PULSES: Peripheral pulses 2+ throughout GI: COMMON NORMALS: Normal to inspection, nondistended, normoactive bowel sounds present, Soft to palpation, non-tender, No hepatosplenomegaly present and no masses AUSCULTATION: Yes normoactive bowel sounds PALPATION: Yes Soft to palpation and Yes No hepatosplenomegaly present RECTAL EXAM: Yes deferred Extremity: COMMON NORMALS: no clubbing, cyanosis or edema and no pedal edema OTHER: lt feet clean dressing , wound VAC in place. Neuro: COMMON NORMALS: patient oriented x3 Data : 02/07/21 05:29 02/07/21 05:29 A&P Assessment and plan (1) Osteomyelitis of toe of right foot: Status: Acute (2) Cellulitis: Status: Acute Qualifiers: Site of cellulitis: other site Qualified Code(s): L03.818 - Cellulitis of other sites (3) Saphenous vein clot: Status: Acute (4) Acute conjunctivitis, right eye: Status: Acute (5) Anemia: Status: Acute Additional A&P Information subacute swelling of the right foot, with CT suggestive of cellulitis without any underlying abscess, diffuse subcutaneous emphysema overlying the first metatarsophalangeal joint, raising concern also for underlying joint space infection. Erosive changes over the first phalanx which may be related to underlying osteomyelitis. Status post Incision and debridement of devitalized soft tissue, epidermis, dermis, subcutaneous tissue, muscle tendon and bone right foot. Right foot bone biopsy Status post Incision and debridement down to including bone with wound VAC application right foot Implants: Wound VAC dressing with granulafoam Continue empiric antibiotic coverage with cefepime, vancomycin and p.o. Flagyl for additional anaerobic coverage ESR greater than 120, CRP 163 FE shows no evidence of significant arterial obstruction Podiatry consult S/P PICC line placement : likely requires vancomycin 2 g every 24 hours for 6 weeks, dose based on Vanco trough, keep vancomycin trough between 15-20, and Levaquin or ciprofloxacin # Extensive nonocclusive thrombus of the right greater saphenous vein from abductor hiatus to ankle, will manage as likely DVT given how extensive, initially on therapeutic Lovenox, has been stopped as patient h&h has dropped significantly.Deny any BRBPR,Batsheva,hematuria. #Normocytic Anemia : Currently H/H : 7.2/.Plan is to transfuse 2 u prbc. Monitor CBC KARI, creatinine 1.1, monitor renal function, her urine output Right eye conjunctivitis, continue tobramycin, no evidence of acute angle-closure glaucoma, no eye pain, no photopsia, no floaters, pupils equal round reactive to light, no eye pain Diabetes mellitus: Insulin sliding scale while remains inpatient. Hypertension: Continue home doses of hydralazine, clonidine Sleep apnea: Continue BiPAP use as needed, currently saturating 98% on room air. DVT prophylaxis: Lovenox Full code. Plan Will arrange home health care for IV antibiotics, wound VAC. hopefully can be discharged in the next 24 to 48 hours Attestations Medical Necessity Statement*: Patient is medically ready for discharge in next 24hrs.merchandise worker is working for arranging home health for I.V Infusion and Vancomycin trough monitoring. 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
[2021-02-07 17:27] LABS: Glucose Point of Care 210 mg/dL (70-110)
--- NOTE | 2021-02-07 18:11 | PC.NURSE ---
SHIFT SUMMARY PT HAS BEEN UP IN CHAIR MOST OF THE DAY - WOUND VAC CONTINUES WITH CONTINUES SUCTION AT 125 - MINIMAL OUTPUT - PT IS AWAITING PLACEMENT - PICC LINE IN PLACE TO RIGHT FA - NO REDNESS OR DRAINAGE NOTED - VSS - PT HAS DENIED PAIN THROUGHOUT SHIFT - WILL CONTINUE TO MONITOR
[2021-02-07] MEDS: NIFEdipine ER (24 hr) 30 mg Tablet 60 MG PO (20:43)
[2021-02-07 21:09] LABS: Glucose Point of Care 216 mg/dL (70-110)
[2021-02-08] VITALS (10 sets, daily range): BP systolic 125–164; BP diastolic 71–83; PULSE 74–86; RESP 16–18; TEMP 36.4–37; O2SAT 95–98
[2021-02-08] MEDS: cloNIDine 0.1 mg Tablet PO ×2 (05:04→16:54)
[2021-02-08] MEDS: cefepime 2,000 MG in sodium chloride 0.9% (plus) 50 ML 100 MG IV ×2 (05:04→16:54)
[2021-02-08 05:26] LABS: Basophils # 0.1 10^3/uL (0.0-0.1); Basophils % 1.2 %; Eosinophils # 0.3 10^3/uL (0.0-0.8); Hematocrit 28.1 % (42.0-52.0); Hemoglobin 9.2 g/dL (11.7-16.6); Lymphocytes # 2.1 10^3/uL (0.8-4.8); Lymphocytes % 18.9 %; Mean Corpuscular HGB Conc 32.7 g/dL (30.0-36.0); Mean Corpuscular Hemoglobin 29.5 pg (28.0-34.0); Mean Corpuscular Volume 90.1 fl (80-94); Mean Platelet Volume 9.4 fL (7.4-10.4); Monocytes # 0.6 10^3/uL (0.2-0.9); Monocytes % 5.2 %; Neutrophils # 8.01 10^3/uL (1.8-7.7); Neutrophils % 70.6 %; Nucleated Red Blood Cells % 0 %; Platelet Count 392 10^3/cmm (130-400); Red Blood Count 3.12 10^6/uL (4.1-5.3); Red Cell Distribution Width 13.9 % (12.1-15.1); White Blood Count 11.3 10^3/uL (4.0-10.0)
[2021-02-08 05:43] LABS: Vancomycin Trough 13.3 ug/mL (10-15)
[2021-02-08 06:52] LABS: Glucose Point of Care 197 mg/dL (70-110)
[2021-02-08] MEDS: hyDRALAzine 50 mg Tablet 100 MG PO ×3 (07:45→20:21)
[2021-02-08] MEDS: metroNIDAZOLE 500 MG Tablet PO ×3 (07:45→20:21)
[2021-02-08] MEDS: metoprolol tartrate 25 mg Tablet PO ×2 (07:46→19:22)
[2021-02-08] MEDS: atorvastatin 40 mg Tablet PO (07:46)
[2021-02-08] MEDS: pantoprazole DR 40 mg Tablet PO (07:46)
--- NOTE | 2021-02-08 10:52 | PC.CHAP ---
Pastoral Care Encounter/Spiritual Assessment Type of Contact [] Declined exhibit carpenter visit [] Patient/Family/Request visit [] Outpatient visit [] Follow-up visit [] Physician referral [] Code/Alert [x] Routine visit [] Staff referral [] Actively dying [] Patient sleeping [] Family support [] [] Out of room [] Palliative care [] [x] Receiving care in room [] Pre-surgical visit [] Trauma [x] Long length of stay [] ICU visit [] Other: Relational/Emotional Strength [x] Patient feels connected with others/family/visitors/staff [] Distress [] Loneliness/isolation [] Abandonment Spirituality of Patient [x] Person of Fior [] Attends Christian of their Fior [x] Believes in Prayer [] Reads Bible or Sikh materials [] There are Spiritual issues to be addressed Communication Professor Interventions [x] Prayer [x] Active listening [x] Non-anxious presence [x] Spiritual/emotional support [] Crisis/trauma care [x] Spiritual counseling [] Bereavement support [] Provided bereavement packet [] Provided Bible/devotional materials [] Provided toy/stuffed animal, coloring book to patient or family member [] Provided Communion [] Anointing/[place] [] Salvation [x] Completed spiritual assessment [] Other: Impact on Illness or Injury [] Angry [] Fearful [x] Anxious [] Often cries [] Exhaustion [x] Unable to work [] Unable to attend christian [] Unable to walk/stand [] Unable to read [] Unable to drive [] Unable to eat/drink [] Unable to sleep [] Unable to be with family [] Patient intubated [] Other: Summary swelling in feet and some infection antia bodies feels good has a good attitude and going home soon Time spent with patient 10 mins
[2021-02-08 11:30] LABS: Glucose Point of Care 205 mg/dL (70-110)
[2021-02-08] MEDS: sodium hypochlorite 0.25% Btl 473 mL 1 APPLIC TOPICAL ×2 (14:45→22:34)
--- NOTE | 2021-02-08 16:14 | PM.PN ---
Subjective Subjective: Interval history: Patient was seen and examined this morning,no acute events overnight. H&H has remained stable, post 2Us PRBC Transfusion. Medications: Reviewed: Yes Vitals/I&O/Wt Last Vital Signs Temp 97.7 F 02/08/21 15:49 Pulse 86 02/08/21 15:49 Resp 18 02/08/21 15:49 BP 159/75 02/08/21 15:49 Pulse Ox 97 02/08/21 15:49 02/08/21 02/08/21 02/08/21 06:59 14:59 22:59 Intake Total 550 / 1790 1240 / 1240 Output Total 800 / 1500 Balance -250 / 290 1240 / 1240 Physical Exam Const: COMMON NORMALS: patient oriented x3 HENMT: COMMON NORMALS: normocephalic and atraumatic HEAD & SCALP: normocephalic and atraumatic Resp: COMMON NORMALS: clear to auscultation bilaterally AUSCULTATION: clear to auscultation bilaterally Cardio: COMMON NORMALS: regular rate, regular rhythm, S1 normal heart sound present, S2 normal heart sound present, No gallops present (Cardio), No murmurs present (Cardio), No rub (Cardio) and Peripheral pulses 2+ throughout RATE: regular rate RHYTHM: regular rhythm HEART SOUNDS: S1 normal heart sound present and S2 normal heart sound present PERIPHERAL PULSES: Peripheral pulses 2+ throughout GI: COMMON NORMALS: Normal to inspection, nondistended, normoactive bowel sounds present, Soft to palpation, non-tender, No hepatosplenomegaly present and no masses AUSCULTATION: Yes normoactive bowel sounds PALPATION: Yes Soft to palpation and Yes No hepatosplenomegaly present RECTAL EXAM: Yes deferred Extremity: COMMON NORMALS: no clubbing, cyanosis or edema and no pedal edema OTHER: lt feet clean dressing , wound VAC in place. Neuro: COMMON NORMALS: patient oriented x3 Data : 02/08/21 05:05 02/07/21 05:29 A&P Assessment and plan (1) Osteomyelitis of toe of right foot: Status: Acute (2) Cellulitis: Status: Acute Qualifiers: Site of cellulitis: other site Qualified Code(s): L03.818 - Cellulitis of other sites (3) Saphenous vein clot: Status: Acute (4) Acute conjunctivitis, right eye: Status: Acute (5) Anemia: Status: Acute Additional A&P Information subacute swelling of the right foot, with CT suggestive of cellulitis without any underlying abscess, diffuse subcutaneous emphysema overlying the first metatarsophalangeal joint, raising concern also for underlying joint space infection. Erosive changes over the first phalanx which may be related to underlying osteomyelitis. Status post Incision and debridement of devitalized soft tissue, epidermis, dermis, subcutaneous tissue, muscle tendon and bone right foot. Right foot bone biopsy Status post Incision and debridement down to including bone with wound VAC application right foot Implants: Wound VAC dressing with granulafoam Continue empiric antibiotic coverage with cefepime, vancomycin and p.o. Flagyl for additional anaerobic coverage ESR greater than 120, CRP 163 FE shows no evidence of significant arterial obstruction Podiatry consult S/P PICC line placement : likely requires vancomycin 2 g every 24 hours for 6 weeks, dose based on Vanco trough, keep vancomycin trough between 15-20, and Levaquin or ciprofloxacin # Extensive nonocclusive thrombus of the right greater saphenous vein from abductor hiatus to ankle, will manage as likely DVT given how extensive, initially on therapeutic Lovenox, has been stopped as patient h&h has dropped significantly.Deny any BRBPR,Batsheva,hematuria. #Normocytic Anemia : Currently H/H : 7./.Plan is to transfuse 2 u prbc. Monitor CBC KARI, creatinine 1.1, monitor renal function, her urine output Right eye conjunctivitis, continue tobramycin, no evidence of acute angle-closure glaucoma, no eye pain, no photopsia, no floaters, pupils equal round reactive to light, no eye pain Diabetes mellitus: Insulin sliding scale while remains inpatient. Hypertension: Continue home doses of hydralazine, clonidine Sleep apnea: Continue BiPAP use as needed, currently saturating 98% on room air. DVT prophylaxis: Lovenox Full code. Plan Will arrange home health care for IV antibiotics, wound VAC. hopefully can be discharged in the next 24 to 48 hours Attestations Medical Necessity Statement*: Currently awaiting safe discharge. 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
[2021-02-08 17:37] LABS: Glucose Point of Care 215 mg/dL (70-110)
[2021-02-08] MEDS: NIFEdipine ER (24 hr) 30 mg Tablet 60 MG PO (20:21)
[2021-02-08 20:56] LABS: Glucose Point of Care 144 mg/dL (70-110)
[2021-02-09 03:20] VITALS: BP 159/78; PULSE 72; RESP 18; TEMP 36.4; O2SAT 96
[2021-02-09] MEDS: cefepime 2,000 MG in sodium chloride 0.9% (plus) 50 ML 100 MG IV ×2 (03:42→15:24)
[2021-02-09 03:43] VITALS: BP 159/78
[2021-02-09] MEDS: cloNIDine 0.1 mg Tablet PO ×2 (03:43→15:25)
[2021-02-09 06:35] LABS: Glucose Point of Care 148 mg/dL (70-110)
[2021-02-09 07:43] VITALS: BP 159/81; PULSE 69; RESP 16; TEMP 36.4; O2SAT 98
[2021-02-09] MEDS: pantoprazole DR 40 mg Tablet PO (08:29)
[2021-02-09] MEDS: metroNIDAZOLE 500 MG Tablet PO ×3 (08:29→20:36)
[2021-02-09] MEDS: metoprolol tartrate 25 mg Tablet PO ×2 (08:29→20:36)
[2021-02-09] MEDS: hyDRALAzine 50 mg Tablet 100 MG PO ×3 (08:29→20:37)
[2021-02-09] MEDS: atorvastatin 40 mg Tablet PO (08:29)
[2021-02-09 10:49] LABS: Glucose Point of Care 215 mg/dL (70-110)
[2021-02-09 11:18] VITALS: BP 153/88; PULSE 71; RESP 18; TEMP 36.6; O2SAT 98
[2021-02-09] MEDS: sodium hypochlorite 0.25% Btl 473 mL 1 APPLIC TOPICAL ×2 (15:25→20:38)
--- NOTE | 2021-02-09 15:27 | PC.CHAP ---
Pastoral Care Encounter/Spiritual Assessment Type of Contact [] Declined hand mixer visit [] Patient/Family/Request visit [] Outpatient visit [xx] Follow-up visit [] Physician referral [] Code/Alert [xx] Routine visit [] Staff referral [] Actively dying [] Patient sleeping [] Family support [] [] Out of room [] Palliative care [] [] Receiving care in room [] Pre-surgical visit [] Trauma [xx] Long length of stay [] ICU visit [] Other: Relational/Emotional Strength [xx] Patient feels connected with others/family/visitors/staff [] Distress [] Loneliness/isolation [] Abandonment Spirituality of Patient [xx] Person of Fior [] Attends Anglican of their Fior [xx] Believes in Prayer [] Reads Bible or Moravian materials [] There are Spiritual issues to be addressed Naval Designer Interventions [x] Prayer [xx] Active listening [xx] Non-anxious presence [] Spiritual/emotional support [] Crisis/trauma care [] Spiritual counseling [] Bereavement support [] Provided bereavement packet [] Provided Bible/devotional materials [] Provided toy/stuffed animal, coloring book to patient or family member [] Provided Communion [] Anointing/[place] [] Salvation [xx] Completed spiritual assessment [] Other: Impact on Illness or Injury [] Angry [] Fearful [] Anxious [] Often cries [] Exhaustion [] Unable to work [] Unable to attend latter day [] Unable to walk/stand [] Unable to read [] Unable to drive [] Unable to eat/drink [] Unable to sleep [] Unable to be with family [] Patient intubated [] Other: Summary Patient stated he feels better and foot is doing much better. He is waiting for approval/receipt of a Wound Vac of his own to arrive and then may be discharged to return home. The Wound Vac he is currently using belongs to the hospital/wound care center. Time spent with patient 5 minutes
[2021-02-09 15:45] VITALS: BP 156/83; PULSE 82; RESP 16; TEMP 36.4; O2SAT 96
[2021-02-09 16:57] LABS: Glucose Point of Care 208 mg/dL (70-110)
[2021-02-09 20:05] VITALS: BP 157/71; PULSE 81; RESP 18; TEMP 36.4; O2SAT 97
--- NOTE | 2021-02-09 20:16 | P.PN_ITS ---
Subjective Subjective: Interval history: Patient was seen and examined this morning,no acute events overnight. Medications: Reviewed: Yes Vitals/I&O/Wt Last Vital Signs Temp 97.6 F 02/09/21 15:45 Pulse 82 02/09/21 15:45 Resp 16 02/09/21 15:45 BP 156/83 02/09/21 15:45 Pulse Ox 96 02/09/21 15:45 02/09/21 02/09/21 02/09/21 06:59 14:59 22:59 Intake Total 910 / 2200 120 / 120 50 / 170 Output Total 700 / 1400 Balance 210 / 800 120 / 120 50 / 170 Physical Exam Const: COMMON NORMALS: patient oriented x3 HENMT: COMMON NORMALS: normocephalic and atraumatic HEAD & SCALP: normocephalic and atraumatic Resp: COMMON NORMALS: clear to auscultation bilaterally AUSCULTATION: clear to auscultation bilaterally Cardio: COMMON NORMALS: regular rate, regular rhythm, S1 normal heart sound present, S2 normal heart sound present, No gallops present (Cardio), No murmurs present (Cardio), No rub (Cardio) and Peripheral pulses 2+ throughout RATE: regular rate RHYTHM: regular rhythm HEART SOUNDS: S1 normal heart sound present and S2 normal heart sound present PERIPHERAL PULSES: Peripheral pulses 2+ throughout GI: COMMON NORMALS: Normal to inspection, nondistended, normoactive bowel sounds present, Soft to palpation, non-tender, No hepatosplenomegaly present and no masses AUSCULTATION: Yes normoactive bowel sounds PALPATION: Yes Soft to palpation and Yes No hepatosplenomegaly present RECTAL EXAM: Yes deferred Extremity: COMMON NORMALS: no clubbing, cyanosis or edema and no pedal edema OTHER: lt feet clean dressing , wound VAC in place. Neuro: COMMON NORMALS: patient oriented x3 Data : 02/08/21 05:05 02/07/21 05:29 A&P Assessment and plan (1) Osteomyelitis of toe of right foot: Status: Acute (2) Cellulitis: Status: Acute Qualifiers: Site of cellulitis: other site Qualified Code(s): L03.818 - Cellulitis of other sites (3) Saphenous vein clot: Status: Acute (4) Acute conjunctivitis, right eye: Status: Acute (5) Anemia: Status: Acute Additional A&P Information subacute swelling of the right foot, with CT suggestive of cellulitis without any underlying abscess, diffuse subcutaneous emphysema overlying the first metatarsophalangeal joint, raising concern also for underlying joint space infection. Erosive changes over the first phalanx which may be related to underlying osteomyelitis. Status post Incision and debridement of devitalized soft tissue, epidermis, dermis, subcutaneous tissue, muscle tendon and bone right foot. Right foot bone biopsy Status post Incision and debridement down to including bone with wound VAC application right foot Implants: Wound VAC dressing with granulafoam Continue empiric antibiotic coverage with cefepime, vancomycin and p.o. Flagyl for additional anaerobic coverage ESR greater than 120, CRP 163 EF shows no evidence of significant arterial obstruction Podiatry consult S/P PICC line placement : likely requires vancomycin 2 g every 24 hours for 6 weeks, dose based on Vanco trough, keep vancomycin trough between 15-20, and Levaquin or ciprofloxacin # Extensive nonocclusive thrombus of the right greater saphenous vein from abductor hiatus to ankle, will manage as likely DVT given how extensive, initial ly on therapeutic Lovenox, has been stopped as patient h&h has dropped significantly.Deny any BRBPR,Batsheva,hematuria. #Normocytic Anemia : Currently H/H : 7.2/.Plan is to transfuse 2 u prbc. Monitor CBC KARI, creatinine 1.1, monitor renal function, her urine output Right eye conjunctivitis, continue tobramycin, no evidence of acute angle- closure glaucoma, no eye pain, no photopsia, no floaters, pupils equal round reactive to light, no eye pain Diabetes mellitus: Insulin sliding scale while remains inpatient. Hypertension: Continue home doses of hydralazine, clonidine Sleep apnea: Continue BiPAP use as needed, currently saturating 98% on room air. DVT prophylaxis: Lovenox Full code. Plan Will arrange home health care for IV antibiotics, wound VAC. hopefully can be discharged in the next 24 to 48 hours Attestations Medical Necessity Statement*: home health care for IV antibiotics arranged, wound VAC approved. Patient will be discharged tomorrow in the morning, due to late arrangement in wound VAC clearance. 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
[2021-02-09] MEDS: NIFEdipine ER (24 hr) 30 mg Tablet 60 MG PO (20:36)
[2021-02-09 20:47] LABS: Glucose Point of Care 190 mg/dL (70-110)
[2021-02-10] VITALS: BP 135/81; PULSE 82; RESP 18; TEMP 36.6; O2SAT 97
[2021-02-10 03:55] VITALS: BP 156/89; PULSE 65; RESP 18; TEMP 36.4; O2SAT 97
[2021-02-10] MEDS: cefepime 2,000 MG in sodium chloride 0.9% (plus) 50 ML 100 MG IV (03:57)
[2021-02-10 04:00] VITALS: BP 156/89
[2021-02-10] MEDS: cloNIDine 0.1 mg Tablet PO (04:00)
--- NOTE | 2021-02-10 05:49 | PC.NURSE ---
SHIFT SUMMARY Has rested well without c/o pain or discomfort. Says is sure ready to go home. Dressing/mariana wrap to right foot. Wound vac in place. Dr Burgos to change wound vac this morning. One at bedside for pt to go home with. Receiving IV antibiotics as ordered
[2021-02-10 06:26] LABS: Glucose Point of Care 149 mg/dL (70-110)
[2021-02-10 08:00] VITALS: BP 132/84; PULSE 80; RESP 18; TEMP 36.5; O2SAT 95
[2021-02-10] MEDS: metroNIDAZOLE 500 MG Tablet PO ×2 (08:09→14:53)
[2021-02-10] MEDS: pantoprazole DR 40 mg Tablet PO (08:09)
[2021-02-10] MEDS: hyDRALAzine 50 mg Tablet 100 MG PO ×2 (08:09→14:53)
[2021-02-10] MEDS: metoprolol tartrate 25 mg Tablet PO (08:10)
[2021-02-10] MEDS: atorvastatin 40 mg Tablet PO (08:10)
--- NOTE | 2021-02-10 09:16 | PM.DCS ---
Discharge Providers Date of Admission: 01/29/21 22:41 Date of Discharge: February 10, 2021 Attending Provider at Admission: Bharti Woodruff MD Attending Provider at Discharge: Praneeth Espinoza MD Primary Care Provider: DAVID Pack Diagnoses at Discharge Discharge Diagnosis (1) Osteomyelitis of toe of right foot: Status: Acute (2) Cellulitis: Status: Acute Qualifiers: Site of cellulitis: other site Qualified Code(s): L03.818 - Cellulitis of other sites (3) Saphenous vein clot: Status: Acute (4) Acute conjunctivitis, right eye: Status: Acute (5) Anemia: Status: Acute Reason for Visit Reason for Visit: R. FOOT SWELLING/INFECTION Hospital Course Hospital Course 50 year old male with past medical history of morbid obesity, SAMANTHA on BiPAP, NIDDM, recent COVID-19 pneumonia requiring hospitalization at [facility] in November 2020, discharged with 2 L/min on nasal cannula, now currently on room air. Presenting to the ER today after being sent over from wound care clinic due to swelling over the right foot progressively increasing over the last associated with overlying ulceration over the dorsal aspect. Patient was admitted for the management of Osteomyelitis of toe of right foot: He underwent Incision and debridement down to including bone with wound VAC application right foot. During the hospital stay he was kept on vancomycin cefepime and metronidazole. Wound culture grew: MRSA,PICC line was placed: Patient is being discharged on 6 weeks of IV vancomycin, is also being discharged on 14 days course of p.o. levofloxacin. Patient was also diagnosed with Non occlusive thrombus Right Greater saphenous from adductor hiatus to the ankle, he was initially kept on therapeutic Lovenox, but due to drop in H&H due to extensive bleeding in the wound: Requiring blood transfusion. Therapeutic Lovenox was discontinued, patient is being discharged on aspirin 81 mg p.o. daily. Right eye conjunctivitis, continue tobramycin, no evidence of acute angle-closure glaucoma, no eye pain, no photopsia, no floaters, pupils equal round reactive to light, no eye pain. Patient responded well to the above medical management and is being discharged in stable condition to home he will follow wound care clinic , podiatry as an outpatient as well as his primary care physician. Discharge Data Data Completed and Pending: Completed Studies During Hospitalization Category Date Time Status CT foot RT wo con * [id number] Urgent Cat Scan 01/29/21 21:56 Completed CXRP [XR chest 1V portable [id number]] R outine Exams 02/05/21 12:22 Completed XR foot RT min 3V * [id number] Routine Exams 01/31/21 08:22 Completed XR foot RT min 3V * [id number] Stat Exams 01/29/21 17:35 Completed CV ankle brachial index 94357 Routi ne Ultrasound 01/31/21 06:00 [place] [id number] Routin e Ultrasound 01/30/21 06:57 Completed Labs from last 24 hours 02/10/21 02/09/21 02/09/21 06:20 20:36 16:50 POC Glucose 149 H 190 H 208 H 02/09/21 10:41 POC Glucose 215 H Vitals: Last Vital Signs Temp 97.7 F 02/10/21 08:00 Pulse 80 02/10/21 08:00 Resp 18 02/10/21 08:00 BP 132/84 02/10/21 08:00 Pulse Ox 95 02/10/21 08:00 Discharge Plan Discharge Patient Disposition: Home Condition: Stable Prescriptions: New levofloxacin 750 mg tablet 750 mg PO DAILY 14 Days Qty: 14 RF: 0 Adult Aspirin Regimen 81 mg tablet,delayed release (DR/EC) 81 mg PO DAILY Qty: 30 RF: 3 Continued saw palmetto 450 mg capsule 450 mg PO DAILY RF: 0 bumetanide 0.5 mg tablet 0.5 mg PO BID Qty: 20 RF: 0 Ozempic 1 mg/dose (4 mg/3 mL) pen injector 0.5 mg SUBCUT .Once a week Qty: 3 RF: 2 rosuvastatin 10 mg tablet 10 mg PO DAILY Qty: 90 RF: 3 spironolactone 50 mg tablet 50 mg PO DAILY Qty: 90 RF: 3 (DME) portable oxygen (Inogen) concentrator See Rx Instructions .Route .MEDSUPPLY Qty: 1 RF: 0 clonidine HCl 0.1 mg tablet 0.1 mg PO BEDTIME RF: 0 furosemide 40 mg tablet 40 mg PO DAILY RF: 0 clonidine HCl 0.2 mg tablet 0.2 mg PO DIRECTED RF: 0 potassium chloride 20 mEq tablet,ER particles/crystals 20 meq PO DAILY RF: 0 hydralazine 100 mg tablet 100 mg PO TID RF: 0 celecoxib 100 mg capsule 100 mg PO BID RF: 0 nifedipine 60 mg tablet extended release 60 mg PO BEDTIME RF: 0 lisinopril 40 mg tablet 40 mg PO BEDTIME RF: 0 Discharge Orders: Discharge Order (Routine); Ordered 02/10/21 Ordered By: Praneeth Espinoza Referrals: [facility] [Outside] (Your IV antibiotic Vancomycin will be administered outpatient at [facility]. [facility] will be calling you with the time of your appointment for tomorrow. ) Manisha Rodriguez DO [Emergency Department] - 02/15/21 10:45 am (Follow up at Wound Care on Feb 15 at 10:45am. Wound Care services is located at [address] [place] [address]. Please call them at [phone] if you have any questions or need to reschedule your appointment. ) Tej Burgos DPM [Physician] - 2 weeks Landy Bella FNP [Primary Care Provider] - (Please call Friday to schedule a follow up appointment) Discharge Diet: Regular Patient Instructions: Levofloxacin (By mouth), Osteomyelitis (GEN), Acute Wound Care (GEN), Opioid Safety Activity Restrictions/Additional Instructions: Wound care is to be performed to wound #1 on right medial plantar (Stage 3 Pressure Ulcer) daily and PRN for excessive soiling or dislodgement: remove soiled dressing, cleanse with saline moistened gauze or antibacterial soap and water and pat dry. Pack with Dakin's moistened gauze, cover with dry gauze, secure with either tape or kerlix and tape. Wound care is to be performed to wound #2 (stage 3 pressure ulcer) and wound #3 (stage 3 pressure ulcer) 3 times weekly and PRN for soiling or dislodgement/VAC malfunction; remove Vac Dressing. Cleanse with saline moistened gauze or antibacterial soap and water and pat dry. Apply black foam to the wound bed, secure with drape. Vac should be set on 125mmHg intermittent suction. May use saline [id number] if vac malfunctions or becomes dislodged. PICC line to be flushed with 10mL of NS before and after infusion. Change dressing once a week using sterile technique and PRN if soiled. Discharge Attestations Time Spent in Discharge Care*: less than 30 min Quality Metrics Clinical Quality Measures During this hospital stay, did patient experience: None Coding Level of Care Code Acute Chg FW SC note Diagnoses Osteomyelitis of toe of right foot M86.9 Cellulitis L03.818 Site of cellulitis: other site Saphenous vein clot I82.819 Acute conjunctivitis, right eye H10.31 Anemia D64.9
--- NOTE | 2021-02-10 10:34 | P.PN_ITS ---
Subjective Subjective: Interval history: Patient seen bedside, denies any acute events overnight. Patient denies any subjective nausea, vomiting, fever, chills, shortness of breath or chest pain. Vitals/I&O/Wt Last Vital Signs Temp 97.7 F 02/10/21 08:00 Pulse 80 02/10/21 08:00 Resp 18 02/10/21 08:00 BP 132/84 02/10/21 08:00 Pulse Ox 95 02/10/21 08:00 02/09/21 02/10/21 02/10/21 22:59 06:59 14:59 Intake Total 550 / 670 410 / 1080 360 / 360 Output Total 1000 / 1000 950 / 950 Balance 550 / 670 -590 / 80 -590 / -590 Physical Exam Narrative: EXAM NARRATIVE: Patient is alert and oriented ?3 and in no acute distress. The following is a focused bilateral lower extremity exam. VASCULAR: Dorsalis pedis palpable +2 bilaterally, posterior tibial arteries palpable +2 bilaterally. Capillary refill time less than 3 seconds to the distal hallux bilaterally. Calf is supple and nontender proximally and distally. Focal edema to the right hallux and edema to the right foot and leg. NEUROLOGICAL: Protective sensation intact 0/10 sites, tested with [place] Misti monofilament to bilateral feet. DERMATOLOGICAL: Approximately 150 cc of serosanguineous drainage in the wound VAC canister. Wound VAC dressing was taken down, no maceration tissue, fibrogranular base without obvious necrosis, no purulent drainage at either the wounds. MUSCULOSKELETAL: No pain with posterior calf squeeze bilaterally. No pain with palpation or debridement of the right foot wound secondary to neuropathy. Data : 02/08/21 05:05 02/07/21 05:29 A&P Assessment and plan (1) Osteomyelitis of toe of right foot: (2) Cellulitis: Qualifiers: Site of cellulitis: other site Qualified Code(s): L03.818 - Cellulitis of other sites (3) Diabetes mellitus with polyneuropathy: Qualifiers: Diabetes mellitus type: type 2 Qualified Code(s): E11.42 - Type 2 diabetes mellitus with diabetic polyneuropathy Mr. Anthony 50-year-old diabetic male with cellulitis and wound probes to bone right foot. 01/31/2021 incision and debridement with soft tissue and bone biopsy right foot 02/03/2020 1 repeat debridement and application of wound VAC to the right foot Bone biopsy and soft tissue cultures both growing staph aureus Recommend PICC line and long-term IV antibiotics for osteomyelitis guided by bone culture Recommend home health referral Patient will require wound care referral for management of his wound after discharge From my standpoint patient would be okay for discharge home once intraoperative cultures are resulted and long-term antibiotic selection has been determined. I would anticipate PICC line, long-term IV antibiotics minimum 6 weeks, wound VAC and wound care clinic follow-up after this hospitalization. Patient okay for discharge from podiatry standpoint. Wounds are improving with increased granulation tissue, reapplied wound VAC dressing with excellent seal set at 125 mm of negative pressure continuous. 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
[2021-02-10 11:29] VITALS: BP 151/88; PULSE 68; RESP 18; TEMP 36.9; O2SAT 97
[2021-02-10 11:59] LABS: Glucose Point of Care 150 mg/dL (70-110)
[2021-02-10] MEDS: sodium hypochlorite 0.25% Btl 473 mL 1 APPLIC TOPICAL (14:54)
[2021-02-10 15:03] VITALS: BP 151/88; PULSE 68; RESP 18; TEMP 36.9; O2SAT 97
--- NOTE | 2021-02-12 12:09 | PC.SOCIAL ---
discharge follow up call made, spoke with patient. patient currently at [facility] getting his IV infusion. patient received new medications from the pharmacy prior to discharge. patient is taking medications as prescribed. patient follow up appointment dates and times given. patients daughter in law will make his pcp follow up appointment. patient wound care is getting done and [facility], patient has a wound vac in place and is aware if wound vac isn't working to remove and place a wet to dry dressing until he goes to [facility] for the wound vac change. patient denies questions or concerns.
== END 2021-02-10 15:04 | disposition swing bed (61) | DRG 629 ==
LOC: ER 22:24 → MEDSURG 23:16
PROVIDERS: Family Medicine; Podiatrist Foot & Ankle Surgery; Admitting Provider Student in an Organized Health Care Education/Training Program; Emergency Provider Nurse Practitioner Family; PCP Registered Nurse; Visit Provider Internal Medicine
PROC: 0QBQ0ZZ Excision of Right Toe Phalanx, Open Approach (ICD-10-PCS; principal; 2021-01-31 07:30)
DX: E11.69 Type 2 diabetes mellitus with other specified complication (principal); M86.171 Other acute osteomyelitis, right ankle and foot; L03.115 Cellulitis of right lower limb; E11.65 Type 2 diabetes mellitus with hyperglycemia; E11.42 Type 2 diabetes mellitus with diabetic polyneuropathy; I10 Essential (primary) hypertension; G47.33 Obstructive sleep apnea (adult) (pediatric); Z86.16 Personal history of COVID-19; E66.01 Morbid (severe) obesity due to excess calories; Z68.39 Body mass index [BMI] 39.0-39.9, adult; I82.811 Embolism and thrombosis of superficial veins of right lower extremity; H10.31 Unspecified acute conjunctivitis, right eye; D64.9 Anemia, unspecified; B95.61 Methicillin susceptible Staphylococcus aureus infection as the cause of diseases classified elsewhere; N17.9 Acute kidney failure, unspecified
CPT/HCPCS: 36415; 36416; 36430; 36569; 36592; 71045; 73630; 73700; 80053; 80202; 82962; 83036; 83605; 83735; 84100; 84145; 85025; 85651; 86140; 86850; 86900; 86920; 87040; 87070; 87077; 87176; 87186; 87205; 87635; 93922; 93971; 96365; 96372; 99285; J0692; J1650; J1815; J2704; J3010; J3370; J3490; J7030; J7040; J7050; P9016

== ENCOUNTER 2021-02-15 13:14 | Outpatient (CLI) | payer OTHER, SELFPAY | END 2021-02-15 13:15 | disposition home or self-care (01) | LOC: WOUND 13:14 | PROVIDERS: PCP Registered Nurse; Visit Provider Nurse Practitioner Family | DX: E11.621 Type 2 diabetes mellitus with foot ulcer (principal); L97.515 Non-pressure chronic ulcer of other part of right foot with muscle involvement without evidence of necrosis | CPT/HCPCS: 11042; 11045; 97605; A6237 ==

== ENCOUNTER 2021-02-22 13:07 | Outpatient (CLI) | payer OTHER, SELFPAY | END 2021-02-22 13:08 | disposition home or self-care (01) | LOC: WOUND 13:07 | PROVIDERS: PCP Registered Nurse; Visit Provider Emergency Medicine | DX: E11.621 Type 2 diabetes mellitus with foot ulcer (principal); L97.513 Non-pressure chronic ulcer of other part of right foot with necrosis of muscle; L97.412 Non-pressure chronic ulcer of right heel and midfoot with fat layer exposed | CPT/HCPCS: 11042; 11043; 11046; 97605 ==

== ENCOUNTER 2021-02-26 15:39 | Outpatient (CLI) | payer OTHER, SELFPAY | END 2021-02-26 15:40 | disposition home or self-care (01) | LOC: WOUND 15:40 | PROVIDERS: PCP Registered Nurse; Visit Provider Emergency Medicine | DX: E11.621 Type 2 diabetes mellitus with foot ulcer (principal); L97.512 Non-pressure chronic ulcer of other part of right foot with fat layer exposed; L97.412 Non-pressure chronic ulcer of right heel and midfoot with fat layer exposed | CPT/HCPCS: 11042; 11045; 97605 ==

== ENCOUNTER 2021-03-05 14:26 | Outpatient (CLI) | payer OTHER, SELFPAY | END 2021-03-05 14:27 | disposition home or self-care (01) | LOC: WOUND 14:27 | PROVIDERS: PCP Registered Nurse; Visit Provider Nurse Practitioner Family | DX: E11.621 Type 2 diabetes mellitus with foot ulcer (principal); L97.512 Non-pressure chronic ulcer of other part of right foot with fat layer exposed; L97.412 Non-pressure chronic ulcer of right heel and midfoot with fat layer exposed | CPT/HCPCS: 11042; 11045 ==

== ENCOUNTER → 2021-03-13 11:42 | Outpatient (BNVA) | payer OTHER, SELFPAY | PROVIDERS: PCP Registered Nurse; Visit Provider Podiatrist Foot & Ankle Surgery | DX: S91.301A Unspecified open wound, right foot, initial encounter (principal); M79.89 Other specified soft tissue disorders; S92.411A Displaced fracture of proximal phalanx of right great toe, initial encounter for closed fracture; X58.XXXA Exposure to other specified factors, initial encounter | CPT/HCPCS: 73630 ==

== ENCOUNTER 2021-03-13 15:08 | Outpatient (CLI) | payer OTHER, SELFPAY | END 2021-03-13 15:09 | disposition home or self-care (01) | LOC: SPT 15:09 | PROVIDERS: PCP Registered Nurse; Visit Provider Podiatrist Foot & Ankle Surgery | DX: Z46.89 Encounter for fitting and adjustment of other specified devices (principal); S91.301A Unspecified open wound, right foot, initial encounter; I87.2 Venous insufficiency (chronic) (peripheral); G62.9 Polyneuropathy, unspecified; R60.9 Edema, unspecified; X58.XXXA Exposure to other specified factors, initial encounter | CPT/HCPCS: 97760; L4361 ==

== ENCOUNTER 2021-03-15 13:39 | Outpatient (CLI) | payer OTHER, SELFPAY | END 2021-03-15 13:40 | disposition home or self-care (01) | LOC: WOUND 13:40 | PROVIDERS: PCP Registered Nurse; Visit Provider Nurse Practitioner Family | DX: E11.621 Type 2 diabetes mellitus with foot ulcer (principal); L97.515 Non-pressure chronic ulcer of other part of right foot with muscle involvement without evidence of necrosis; L97.412 Non-pressure chronic ulcer of right heel and midfoot with fat layer exposed | CPT/HCPCS: 11042; 11045 ==

== ENCOUNTER 2021-03-22 14:38 | Outpatient (CLI) | payer OTHER, SELFPAY | END 2021-03-22 14:39 | disposition home or self-care (01) | LOC: WOUND 14:39 | PROVIDERS: PCP Registered Nurse; Visit Provider Emergency Medicine | DX: E11.621 Type 2 diabetes mellitus with foot ulcer (principal); L97.512 Non-pressure chronic ulcer of other part of right foot with fat layer exposed; L97.412 Non-pressure chronic ulcer of right heel and midfoot with fat layer exposed; I10 Essential (primary) hypertension; I87.2 Venous insufficiency (chronic) (peripheral) | CPT/HCPCS: 11042; 11045 ==

== ENCOUNTER 2021-03-29 13:12 | Outpatient (CLI) | payer OTHER, SELFPAY | END 2021-03-29 13:13 | disposition home or self-care (01) | LOC: WOUND 13:12 | PROVIDERS: PCP Registered Nurse; Visit Provider Nurse Practitioner Family | DX: E11.621 Type 2 diabetes mellitus with foot ulcer (principal); L97.512 Non-pressure chronic ulcer of other part of right foot with fat layer exposed; I87.2 Venous insufficiency (chronic) (peripheral); I10 Essential (primary) hypertension | CPT/HCPCS: 11042; 11045 ==

== ENCOUNTER 2021-04-03 14:13 | Outpatient (CLI) | payer OTHER, SELFPAY | END 2021-04-03 14:14 | disposition home or self-care (01) | LOC: WOUND 14:14 | PROVIDERS: PCP Registered Nurse; Visit Provider Nurse Practitioner Family | DX: E11.621 Type 2 diabetes mellitus with foot ulcer (principal); L97.512 Non-pressure chronic ulcer of other part of right foot with fat layer exposed; L97.412 Non-pressure chronic ulcer of right heel and midfoot with fat layer exposed; I10 Essential (primary) hypertension; I87.2 Venous insufficiency (chronic) (peripheral) | CPT/HCPCS: 11042 ==

== ENCOUNTER 2021-04-09 14:25 | Outpatient (CLI) | payer OTHER, SELFPAY ==
--- NOTE | 2021-04-09 15:00 | USCV_ITS ---
Roney Anthony Age: 50 Gender: M : 1970 Exam Date: 04/09/2021 15:32 Ordering Phys: Manisha Rodriguez DO Technologist: ZEUS [place] [facility] [place]: HISTORY: PROCEDURES: FINDINGS: No DVT or superficial thrombus seen. Right GSV has one area proximal with reflux noted. No other reflux seen in right or left leg This patient appears to be a good candidate for an ablation. CONCLUSIONS No evidence of DVT in the above-mentioned identifiable veins. Significant venous reflux of greater than 500 ms( 1290 msecs) was noted at the proximal greater saphenous vein segment on the right side . The venous segment was measuring 0.51 cm anterior depth of 1.36 cm. No other significant reflux were noted either in the deep or superficial veins bilaterally in the greater saphenous or small saphenous vein segments. Dr Jennifer Harp MD [facility] (Electronically Signed) Final Date: 12 April 2021 00:18 S
== END 2021-04-09 14:26 | disposition home or self-care (01) ==
LOC: US 14:27
PROVIDERS: PCP Registered Nurse; Visit Provider Emergency Medicine
DX: E11.621 Type 2 diabetes mellitus with foot ulcer (principal)
CPT/HCPCS: 93970

== ENCOUNTER 2021-04-12 14:41 | Outpatient (CLI) | payer OTHER, SELFPAY | END 2021-04-12 14:42 | disposition home or self-care (01) | LOC: WOUND 14:42 | PROVIDERS: PCP Registered Nurse; Visit Provider Emergency Medicine | DX: E11.621 Type 2 diabetes mellitus with foot ulcer (principal); L97.512 Non-pressure chronic ulcer of other part of right foot with fat layer exposed; L97.412 Non-pressure chronic ulcer of right heel and midfoot with fat layer exposed; I87.2 Venous insufficiency (chronic) (peripheral) | CPT/HCPCS: 11042 ==

== ENCOUNTER 2021-04-13 14:28 | Outpatient (CLI) | payer OTHER, SELFPAY ==
--- NOTE | 2021-04-13 14:33 | USCV_ITS ---
Roney Anthony Age: 50 Gender: M : 1970 Exam Date: 04/13/2021 14:17 Ordering Phys: Manisha Rodriguez DO Technologist: Soco Jimenez [place] [facility] [place]: PAIN RIGHT LEFT Brachial 124.00 mmHg Brachial 131.00 mmHg Pressure (mmHg) Waveform Pressure (mmHg) Waveform 123.00 High Thigh 140.00 121.00 Below Knee 140.00 125.00 CAD DETAILER 157.00 134.00 DPA 146.00 1.02 Ankle/Brachial Index 1.20 108.00 Pre-Exercise Toe Pressure 88.00 Pre-Exercise Toe/Brachial Index 0.67 0.82 FINDINGS Normal resting ABIs bilaterally-1.02 on the right and 1.2 on the left Normal resting TBI on the right side-0.82 on the right Minimally diminished resting TBI on the left side-0.67 on the left CONCLUSIONS 1. No significant arterial obstruction on the right side. 2. Possible mild PAD on the left side Dr Jennifer Harp MD [facility] (Electronically Signed) Final Date: 16 April 2021 19:05 S
== END 2021-04-13 14:29 | disposition home or self-care (01) ==
LOC: RAD 14:30
PROVIDERS: PCP Registered Nurse; Visit Provider Emergency Medicine
DX: E11.621 Type 2 diabetes mellitus with foot ulcer (principal); M79.604 Pain in right leg
CPT/HCPCS: 93923

== ENCOUNTER → 2021-04-17 10:42 | Outpatient (BNVA) | payer OTHER, SELFPAY | PROVIDERS: PCP Registered Nurse; Visit Provider Podiatrist Foot & Ankle Surgery | DX: Z20.822 Contact with and (suspected) exposure to COVID-19 (principal); S91.301A Unspecified open wound, right foot, initial encounter; X58.XXXA Exposure to other specified factors, initial encounter; I87.2 Venous insufficiency (chronic) (peripheral); G62.9 Polyneuropathy, unspecified; R60.9 Edema, unspecified; M86.671 Other chronic osteomyelitis, right ankle and foot; Z01.818 Encounter for other preprocedural examination | CPT/HCPCS: 73630; 87635 ==

== ENCOUNTER 2021-04-20 06:09 | Day surgery (SDC) | payer OTHER, SELFPAY ==
[2021-04-19 14:24] VITALS: BMI 38.9
[2021-04-20] VITALS (9 sets, daily range): BP systolic 92–162; BP diastolic 52–86; PULSE 75–92; RESP 14–16; TEMP 36.1–37.1; O2SAT 95–99
[2021-04-20 08:47] LABS: Glucose Point of Care 124 mg/dL (70-110)
--- NOTE | 2021-04-20 08:52 | ANES.PREANE2 ---
Pre-Anesthetic Assessment Pre-Anesthetic Assessment: Height/Weight: Height 1.75 m Weight 119.748 kg Temp Pulse Resp BP Pulse Ox 98.8 F 78 16 162/86 95 04/20/21 08:06 04/20/21 08:06 04/20/21 08:06 04/20/21 08:06 04/20/21 08:06 Preop Diagnosis: Osteomyelitis right foot Proposed Procedure: Operation Date: 04/20/21 09:35 Proposed Procedures p Incision and debridement with insertion of antibiotic impregnated cement spacer right foot [id number] M86.671(Right) - Tej Burgos DPM Familial anesthetic complications: none Was Beta Fito taken within 24 hours: Yes Was Clonidine taken within 24 hours: N/A Last intake: Intake Last Liquid Date 04/19/21 Last Liquid Time 22:00 Last Solid Date 04/19/21 Last Solid Time 18:00 Social: Social History: No alcohol and No tobacco Exam: Pre-Anes Outpt Exam: alert, oriented x 3, clear to auscultation bilaterally and regular rate & rhythm Airway: MP: 4 Dentition: Other (missing) Additional comments: large neck and dumont Pulmonary: Pulmonary: Sleep apnea Comments: hx covid CV/HEM: CV/HEM: HTN Comments: Perfusion scan 2020 IMPRESSIONS 1. Small sized perfusion abnormality of mild severity of apical inferior wall with subtle reversibility in mid inferior wall on stress images. 2. This may represent old myocardial infarction in right coronary artery territory with mild tali-infarct ischemia. 3. Overall left ventricular systolic function is normal without regional wall motion abnormalities. 4. The left ventricular ejection fraction is normal with a value of 63%. 5. No prior similar studies to compare. Sestamibi CONCLUSION: 1. No significant EKG changes with the LexiScan infusion. Interpretation limited by significant baseline artifact. 2. No LexiScan induced chest pain or cardiac arrhythmia. 3. Normal blood pressure and heart rate response. 4. Sestamibi/sestamibi perfusion scan pending; see separate report. Metabolic: Metabolic: DM, Hyperlipidemia and Morbid obesity Anesthetic Plan: ASA status: 3 Anesthesia: MAC Risk of > 500 ml blood loss (7ml/kg in children): No PFSH Anesthesia PFSH: Medical History Acute conjunctivitis, right eye Anemia Cellulitis Diabetes Diabetes mellitus with polyneuropathy Edema Neuropathy Osteomyelitis of toe of right foot Pneumonia due to COVID-19 virus Saphenous vein clot Sleep apnea Family History Other CAD (coronary artery disease) Hypertension Data Anesthesia CBC & Chem 7: 04/20/21 08:15 04/20/21 08:15 Other Labs: Laboratory Results - last 48 hr 04/20/21 08:43 POC Glucose 124 H Cardiac Studies: No Data to Display
[2021-04-20 09:00] LABS: Basophils # 0.1 10^3/uL (0.0-0.1); Basophils % 0.7 %; Eosinophils # 0.4 10^3/uL (0.0-0.8); Eosinophils % 3.4 %; Hematocrit 40.7 % (42.0-52.0); Hemoglobin 13.8 g/dL (11.7-16.6); Lymphocytes # 2.8 10^3/uL (0.8-4.8); Lymphocytes % 23.6 %; Mean Corpuscular HGB Conc 33.9 g/dL (30.0-36.0); Mean Corpuscular Volume 82.6 fl (80-94); Mean Platelet Volume 10.2 fL (7.4-10.4); Monocytes # 0.7 10^3/uL (0.2-0.9); Neutrophils # 7.82 10^3/uL (1.8-7.7); Nucleated Red Blood Cells % 0 %; Platelet Count 267 10^3/cmm (130-400); Red Blood Count 4.93 10^6/uL (4.1-5.3); Red Cell Distribution Width 14.4 % (12.1-15.1); White Blood Count 11.9 10^3/uL (4.0-10.0)
[2021-04-20] MEDS: sodium chloride 0.9% 1,000 ML 30 ML IV (09:15)
[2021-04-20 09:21] LABS: Alanine Aminotransferase 24 U/L (0-41); Albumin Level 4.7 g/dL (3.5-5.2); Alkaline Phosphatase 120 IU/L (40-130); Anion Gap 21.7 (5-19); Aspartate Amino Transferase 18 U/L (0-40); Blood Urea Nitrogen 29 mg/dL (6-20); Calcium 9.3 mg/dL (8.5-10.5); Carbon Dioxide 17 mmol/L (22-29); Chloride 104 mmol/L (98-107); Globulin 3.1 g/dL (1.3-4.6); Glomerular Filtration Rate 58.2 mL/min (90-130); Glucose 127 mg/dL (65-115); Osmolality Calculated 293 mOsm/kg (285-295); Potassium 4.7 mmol/L (3.5-5.1); Sodium 138 mmol/L (136-145); Total Bilirubin 0.2 mg/dL (0.15-1.2); Total Protein 7.8 g/dL (6.6-8.7)
--- NOTE | 2021-04-20 10:28 | P.OP_ITS ---
Operative Report Date of procedure: April 20, 2021 Pre-op Diagnosis: Osteomyelitis right foot Post-op diagnosis: same Post-op Findings: None Procedure Done: Incision and debridement with insertion of antibiotic impregnated cement spacer right foot CPT codes 73468 and 50091 Implants: Simplex P with addition of 1 g vancomycin, 2-0 Vicryl, 3-0 nylon Specimens removed/disposition: None Pathology: none sent Surgeon: Tej Burgos D.P.M. Lockstitch Tunnel Elastic Operator: Tyra Anesthesia: MAC Estimated blood loss: 20 Tourniquet time: 20 IV fluids: 0 Urine output: 0 Complications: None Condition: stable Disposition: PACU Brief History: Gangrene with I&D, 8 weeks of vancomycin via PICC line, oral antibiotics, local wound care. Progression of chronic osteomyelitis appreciated on x-ray findings. Recommended bone debridement with insertion of antibiotic spacer. Patient is aware that this may lead to altered mechanics, risks include transfer pressure, transfer lesions, altered gait, new wound formation, failure to eliminate osteomyelitis and need for further antibiotic therapies, debridement and potentially higher level of amputation. Patient wishes to proceed. Procedure: Under mild sedation the patient was brought to the operating room and remained on the gurney in supine position. A timeout was performed. Anesthesia was then administered by the anesthesia service. Local anesthesia injected by myself in a right Mercedes block fashion total of 30 cc of one-to-one mixture 1% lidocaine and point 5C Marcaine plain. Well-padded pneumatic tourniquet applied to the right ankle. Right lower extremity was then scrubbed, prepped and draped utilizing normal aseptic technique. Tourniquet was inflated to 250 mmHg. Linear longitudinal incision was made medial to the extensor hallucis longus tendon starting at mid diaphysis of the first metatarsal extending to the distal aspect of the proximal phalanx on the right hallux. This was performed full thickness down to bone. All bleeders were ligated and cauterized as necessary. Osteotomy of the diaphysis of the first metatarsal and phalanx of the right hallux were performed, the bone that was necrotic and diseased and had poor density and color was debrided and removed and passed from operative field followed by sesamoidectomy of both tibial and fibular sesamoids. Remaining bone levels appeared improved with firm density and white,. Simplex P tobramycin with addition of vancomycin was inserted via the cement spacer and closed in a layered fashion with 2-0 Vicryl and 3-0 nylon. Previous to closure wound was irrigated with copious amounts of sterile saline solution. Dressing with Adaptic, sterile 4 x 4, Kerlix, Skyler wrap and cam boot was applied. Tourniquet was deflated and a prompt hyperemic response was noted to the distal digits of the right foot. Patient tolerated the procedure and anesthesia well and was transferred to the PACU with vital signs stable vascular status intact. Following a period of postoperative monitoring he will be discharged home is to be minimal weightbearing and elevate his right foot while rest. He was given discharge follow-up and instructions as well as my cell phone to contact me with questions or concerns.
--- NOTE | 2021-04-20 10:28 | W.PM.OPSUD ---
Surgery/Procedure H&P Update DATE OF PROCEDURE: April 20, 2021 DATE H&P PERFORMED: 04/17/21 H&P UPDATE INFORMATION: I have reviewed H&P completed within last 30 days, I have examined patient prior to procedure, No changes to prior documentation and H&P is in [facility] EMR on date indicated PREOP DIAGNOSIS: Osteomyelitis right foot PLANNED PROCEDURE: Operation Date: 04/20/21 09:35 Proposed Procedures p Incision and debridement with insertion of antibiotic impregnated cement spacer right foot [id number] M86.671(Right) - Tej Burgos DPM
[2021-04-20] MEDS: clindamycin 600 MG/50 ML PREMIX 100 MG IV (10:31)
[2021-04-20] MEDS: lidocaine 1% INJ 20 mL XX (10:40)
[2021-04-20] MEDS: vancomycin 1,000 MG SDV 1000 MG XX (10:55)
--- NOTE | 2021-04-20 11:25 | XR_ITS ---
WS: [id number] RIGHT FOOT: 2 VIEW(S) TECHNIQUE: AP and lateral. HISTORY: post op COMPARISON: 04/17/2021 Resection of 50% of the distal first metatarsal. Resection of the base of the first proximal phalanx. In the resection cavity there is an antibiotic block. Postsurgical changes in the soft tissues. Ther e is an erosion remaining at the resection site of the proximal phalanx medially. This could be an er osion or area of osteomyelitis. Normal tarsal/metatarsal alignment. No soft tissue abnormality or bone destruction. XR/XR foot RT 2V [id number] IMPRESSION: 1. Resection of 50% of the first metatarsal and proximal first phalanx with an antibiotic block now present at the resection site. 2. Appropriate postoperative changes are noted.
--- NOTE | 2021-04-20 12:25 | ANE.PACU2 ---
Inpatient post-anesthesia follow up: Airway intact: Yes Vital signs: Temperature 97.2 F Pulse Rate 83 Respiratory Rate 16 Blood Pressure 122/77 Pulse Oximetry 96 Oxygen Delivery Me thod Room Air Oxygen Flow Rate 4 Fraction of Inspir ed Oxygen Hydration adequate: Yes Nausea and vomiting: No Pain level: 2 Mental status: Baseline
== END 2021-04-20 12:32 | disposition home or self-care (01) ==
PROVIDERS: PCP Registered Nurse; Visit Provider Podiatrist Foot & Ankle Surgery
PROC: (CPT 11981; principal; 2021-04-20 09:25)
DX: M86.8X7 Other osteomyelitis, ankle and foot (principal); I10 Essential (primary) hypertension; E78.5 Hyperlipidemia, unspecified; E66.01 Morbid (severe) obesity due to excess calories; Z68.39 Body mass index [BMI] 39.0-39.9, adult; E11.42 Type 2 diabetes mellitus with diabetic polyneuropathy; G47.30 Sleep apnea, unspecified; Z86.16 Personal history of COVID-19; Z79.82 Long term (current) use of aspirin
CPT/HCPCS: 11981; 28005; 36416; 73620; 80053; 82962; 85025; 96365; J2250; J2704; J3010; J3370; J3490; J7030

== ENCOUNTER → 2021-05-07 11:51 | Outpatient (BNVA) | payer OTHER, SELFPAY | PROVIDERS: PCP Registered Nurse; Visit Provider Podiatrist Foot & Ankle Surgery | DX: Z98.890 Other specified postprocedural states (principal) | CPT/HCPCS: 73610; 73630 ==

== ENCOUNTER → 2021-05-14 11:02 | Outpatient (BNVA) | payer OTHER, SELFPAY | PROVIDERS: PCP Registered Nurse; Visit Provider Podiatrist Foot & Ankle Surgery | DX: Z98.890 Other specified postprocedural states (principal) | CPT/HCPCS: 73630 ==

== ENCOUNTER → 2021-06-12 15:05 | Outpatient (BNVA) | payer OTHER, SELFPAY | PROVIDERS: PCP Registered Nurse; Visit Provider Podiatrist Foot & Ankle Surgery | DX: S91.301A Unspecified open wound, right foot, initial encounter (principal); X58.XXXA Exposure to other specified factors, initial encounter | CPT/HCPCS: 73630 ==

== ENCOUNTER → 2021-06-25 10:19 | Outpatient (BNVA) | payer OTHER, SELFPAY | PROVIDERS: PCP Registered Nurse; Visit Provider Podiatrist Foot & Ankle Surgery | DX: Z98.890 Other specified postprocedural states (principal) | CPT/HCPCS: 73630 ==

== ENCOUNTER → 2021-06-27 15:42 | Outpatient (BNVA) | payer OTHER, SELFPAY | PROVIDERS: PCP Registered Nurse; Visit Provider Podiatrist Foot & Ankle Surgery | DX: Z98.890 Other specified postprocedural states (principal); E11.9 Type 2 diabetes mellitus without complications | CPT/HCPCS: 80048; 83036; 85025; 85651; 86140 ==

== ENCOUNTER → 2021-07-10 11:06 | Outpatient (BNVA) | payer OTHER, SELFPAY | PROVIDERS: PCP Registered Nurse; Visit Provider Podiatrist Foot & Ankle Surgery | DX: Z98.890 Other specified postprocedural states (principal); S91.301A Unspecified open wound, right foot, initial encounter; X58.XXXA Exposure to other specified factors, initial encounter | CPT/HCPCS: 73630 ==

== ENCOUNTER 2021-12-04 16:01 | Inpatient (IN) | payer OTHER, SELFPAY ==
[2021-12-04] VITALS (24 sets, daily range): BP systolic 124–193; BP diastolic 62–115; PULSE 84–137; RESP 18–33; TEMP 36.8–38.1; O2SAT 90–96; BMI 41.3; BMI 43.0
--- NOTE | 2021-12-04 16:22 | ECG_ITS ---
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 Measurements Intervals [place] Rate: 107 P: 54 IA: 178 QRS: -18 QRSD: 105 T: 75 QT: 325 QTc: 435 Interpretive Statements SINUS TACHYCARDIA LEFT VENTRICULAR HYPERTROPHY AND ST-T CHANGE [VOLTAGE CRITERIA PLUS ST/T ABNORMALITY] INTERPRETATION BASED ON A DEFAULT AGE OF 40 YEARS No previous ECG available for comparison Electronically Signed On 12-04-2021 21:30:54 CDT by Maria Luisa Goodman M.D. [id number]
--- NOTE | 2021-12-04 16:27 | XRR_ITS ---
PROCEDURE INFORMATION: Exam: XR Chest Exam date and time: 12/04/2021 4:48 PM Age: 51 years old Clinical indication: Cough and dyspnea; Additional info: Dyspnea/cough TECHNIQUE: Imaging protocol: Radiologic exam of the chest. Views: 1 view. COMPARISON: CR XR chest 1V portable [id number] 02/05/2021 12:59 PM FINDINGS: Lungs: Atelectasis or scar in the peripheral right lung base. The lungs are otherwise clear. Pleural spaces: Unremarkable. No pleural effusion. No pneumothorax. Heart/Mediastinum: Unremarkable. No cardiomegaly. Bones/joints: Unremarkable. XR/XR chest 1V portable [id number] IMPRESSION: No acute findings.
[2021-12-04 16:34] LABS: Glucose Point of Care 251 mg/dL (70-110)
--- NOTE | 2021-12-04 16:40 | W.ED.SOB ---
HPI - SOB/Dyspnea General: Chief Complaint: Shortness of Breath/Dyspnea Stated Complaint: abnormal heart rate Time Seen by Provider: 12/04/21 16:21 Source: patient Mode of arrival: ambulatory Limitations: no limitations History of Present Illness: HPI Narrative: 51-year-old male presents emergency room complaining of shortness of breath nausea and vomiting. Patient is on Ozempic has been taking it for a while he took a shot yesterday morning he has been fixated. They did not increase his dose he did not really have any problems nausea vomiting initially began it. He has been short of breath tachycardic and vomiting yesterday through today. He has chronic osteomyelitis of his right foot for which he has been seeing Dr. Burgos. Patient is a known diabetic the only medication he is on is Ozempic. He has significant hypertension in reviewing his medication list it would appear that he had a difficult time maintaining his blood pressure control. He is on clonidine Lasix hydralazine lisinopril nifedipine and spironolactone for his blood pressure. He has not taken any of these recently because of his persistent nausea and vomiting MD elicited complaint: shortness of breath Pertinent past history: diabetes and other (Hypertension) Onset (ago): day(s) (1) Timing: constant Severity: moderate Exacerbating factors: nothing Relieving factors: nothing Known history of: diabetes Associated symptoms: Reports abdominal pain, cough, nausea, palpitations and vomiting; Deny chest congestion, chest pain, diaphoresis, dizziness, extremity pain, fever(s), hemoptysis, lightheadedness, myalgias, orthopnea, paresthesias, polydipsia, polyuria, rash, sense of impending doom or syncope Treatment prior to arrival: none Review of Systems Const: Reports: fatigue and malaise; Denies: fever(s), chills or diaphoresis ENMT: Denies: throat pain, ear or mastoid pain, nasal discharge or nasal congestion Card: Reports: palpitations and dyspnea on exertion; Denies: chest pain, lightheadedness, syncope or orthopnea Resp: Reports: dyspnea and non-productive cough; Denies: productive cough, hemoptysis or chest congestion GI: Reports: abdominal pain, nausea and vomiting : Denies: flank pain, difficulty urinating, dysuria, urinary frequency or urinary urgency Musc: Reports: extremity swelling (Right lower extremity); Denies: neck pain, back pain or extremity pain Skin/Breast: Denies: rash or pruritus Neuro: Denies: dizziness Endo: Denies: polyuria or polydipsia PFSH ED PFSH: Medical History (Updated 12/05/21 @ 08:34 by Homero Ponce DO) Acute conjunctivitis, right eye Anemia BPH (benign prostatic hyperplasia) Cellulitis Diabetes Diabetes mellitus with polyneuropathy Dyslipidemia Edema Neuropathy Osteomyelitis of toe of right foot Pneumonia due to COVID-19 virus Post-acute COVID-19 syndrome Respiratory failure with hypoxia Saphenous vein clot Sleep apnea Family History Other CAD (coronary artery disease) Hypertension Social History Smoking and tobacco status: never smoked Physical Exam Const: GENERAL APPEARANCE: cooperative and comfortable ORIENTATION/CONSCIOUSNESS: Yes awake, Yes oriented to person, Yes oriented to place and Yes oriented to time HENMT: COMMON NORMALS: normocephalic, atraumatic and hearing grossly normal bilaterally HEAD & SCALP: normocephalic and atraumatic Resp: COMMON NORMALS: normal respiratory effort, No retractions, No use of accessory muscles and clear to auscultation bilaterally AUSCULTATION: clear to auscultation bilaterally Cardio: COMMON NORMALS: regular rhythm and No murmurs present (Cardio) RATE: tachycardic RHYTHM: regular rhythm GI: COMMON NORMALS: Soft to palpation and No hepatosplenomegaly present AUSCULTATION: Yes normoactive bowel sounds PALPATION: Yes Soft to palpation, No Tenderness to palpation present (GI), No Guarding due to palpation present (GI) and Yes No hepatosplenomegaly present : COMMON NORMALS: Yes no CVA tenderness BLADDER/KIDNEY EXAM: Yes no CVA tenderness Back/Pelvis: COMMON NORMALS: no CVA tenderness Extremity: COMMON NORMALS: no calf tenderness OTHER: Significant swelling of the right lower extremity moderate redness tender to the touch there is some's what appear to be superficial ulcers and abrasions on the right foot on the plantar surface of the left great toe there is also a small abrasion minimal redness. Neuro: SENSORIUM/ORIENTATION: Yes oriented to person, Yes oriented to place and Yes oriented to time Skin: COMMON NORMALS: no rashes or lesions noted GENERAL SKIN EXAM: no rashes or lesions noted Course Vital Signs: Vital signs: Vital Signs Temperature 100.6 F H 12/05/21 05:40 Pulse Rate 68 12/05/21 06:45 Respiratory Rate 18 12/05/21 06:45 Blood Pressure 111/64 12/05/21 06:45 Pulse Oximetry 97 12/05/21 06:45 Oxygen Delivery Me thod 12/04/21 23:20 Oxygen Flow Rate 2 12/04/21 23:20 Fraction of Inspir ed Oxygen 35 12/05/21 05:53 MDM - SOB/Dyspnea Medical Decision Making Blood pressure and heart rate improved with medications. Cultures done start vancomycin discussed Dr. Burgos all he is not on-call he is available to evaluate the patient in the morning and we will plan on seeing him. Discussed with hospitalist orders written. Patient has significant leukocytosis the initial thought was that he may have inflammatory reaction of the Charcot foot on the right foot given the white count and more concerned he may have developed more osteomyelitis the foot x-ray does look better than previous but is highly suspicious and will need some advanced imaging at some point. Medical Records I reviewed the patient's medical records. Lab Data I reviewed the patient's lab results. : 12/05/21 01:54 12/05/21 01:54 Labs/Radiology: Radiology Impressions Chest X-Ray 12/04/21 16:27 IMPRESSION: No acute findings. Foot X-Ray 12/04/21 17:04 IMPRESSION: No acute skeletal finding. Foot CT 12/04/21 19:21 IMPRESSION: 1. No definite evidence for active osteomyelitis. 2. Resection of the mid and distal 1st metatarsal. 3. Probable cellulitis and ulceration in the medial great toe and in the region of the 1st metatarsophalangeal joint. 4. Subcutaneous soft tissue edema/cellulitis in the dorsal foot. No definite discrete abscess identified. Laboratory Results WBC 26.2 10^3/uL (4.0-10.0) H 12/04/21 16:42 RBC 5.00 10^6/uL (4.1-5.3) 12/04/21 16:42 Hgb 14.8 g/dL (11.7-16.6) 12/04/21 16:42 Hct 43.6 % (42.0-52.0) 12/04/21 16:42 MCV 87.2 fl (80-94) 12/04/21 16:42 MCH 29.6 pg (28.0-34.0) 12/04/21 16:42 MCHC 33.9 g/dL (30.0-36.0) 12/04/21 16:42 RDW 13.6 % (12.1-15.1) 12/04/21 16:42 Plt Count 168 10^3/cmm (130-400) 12/04/21 16:42 MPV 10.7 fL (7.4-10.4) H 12/04/21 16:42 Neut % (Auto) 89.8 % 12/04/21 16:42 Lymph % (Auto) 3.5 % 12/04/21 16:42 [place] % (Auto) 5.8 % 12/04/21 16:42 Eos % (Auto) 0.0 % 12/04/21 16:42 Baso % (Auto) 0.2 % 12/04/21 16:42 Neut # (Auto) 23.49 10^3/uL (1.8-7.7) H 12/04/21 16:42 Lymph # (Auto) 0.9 10^3/uL (0.8-4.8) 12/04/21 16:42 [place] # (Auto) 1.5 10^3/uL (0.2-0.9) H 12/04/21 16:42 Eos # (Auto) 0.0 10^3/uL (0.0-0.8) 12/04/21 16:42 Baso # (Auto) 0.1 10^3/uL (0.0-0.1) 12/04/21 16:42 Nucleated RBC % (auto) 0 % 12/04/21 16:42 Nucleated RBCs # 0.0 /100WBC 12/04/21 16:42 ESR 68 mm/hr (0-10) H 12/04/21 16:42 Sodium 135 mmol/L (136-145) L 12/04/21 16:42 Potassium 4.2 mmol/L (3.5-5.1) 12/04/21 16:42 Chloride 95 mmol/L (98-107) L 12/04/21 16:42 Carbon Dioxide 23 mmol/L (22-29) 12/04/21 16:42 Anion Gap 21.2 (5-19) H 12/04/21 16:42 BUN 19 mg/dL (6-20) 12/04/21 16:42 Creatinine 1.8 mg/dL (0.7-1.2) H 12/04/21 16:42 GFR Calculation 39.8 mL/min (90-130) L 12/04/21 16:42 Glucose 300 mg/dL (65-115) H 12/04/21 16:42 POC Glucose 251 mg/dL (70-110) H 12/04/21 16:30 Calculated Osmolality 293 mOsm/kg (285-295) 12/04/21 16:42 Calcium 9.2 mg/dL (8.5-10.5) 12/04/21 16:42 Iron 16 ug/dL (59-158) L 12/04/21 16:42 TIBC 284 mcg/dl 12/04/21 16:42 % Saturation 5.6 % (20-50) L 12/04/21 16:42 Unsat Iron Binding 268 ug/dL (112-347) 12/04/21 16:42 Total Bilirubin 1.0 mg/dL (0.15-1.2) 12/04/21 16:42 AST 15 U/L (0-40) 12/04/21 16:42 ALT 13 U/L (0-41) 12/04/21 16:42 Alkaline Phosphatase 126 IU/L (40-130) 12/04/21 16:42 Creatine Kinase 320 U/L (39-308) H 12/04/21 16:42 Troponin T Baseline 21 ng/L (0-15) H 12/04/21 16:42 Troponin T 120 Minute 25.83 ng/L (0-15) H 12/04/21 18:38 Delta Troponin T 4.83 ABS# (0-10) 12/04/21 18:38 C-Reactive Protein 363.9 mg/L (0.0-4.9) H 12/04/21 16:42 NT-Pro-B Natriuret Pep 702 pg/mL (0-125) H 12/04/21 16:42 Total Protein 6.8 g/dL (6.6-8.7) 12/04/21 16:42 Albumin 4.3 g/dL (3.5-5.2) 12/04/21 16:42 Globulin 2.5 g/dL (1.3-4.6) 12/04/21 16:42 Amylase 18 U/L (28-100) L 12/04/21 16:42 Lipase 17 U/L (13-60) 12/04/21 16:42 Vitamin B12 475 pg/mL (232-1245) 12/04/21 16:42 Folate 16.0 ng/mL (4.5-32.2) 12/04/21 16:42 Procalcitonin 2.14 ng/mL (0-0.5) H 12/04/21 16:42 TSH 1.70 uIU/mL (0.27-4.20) 12/04/21 16:42 Discharge Plan Discharge Patient Disposition: Admitted As Inpatient Admit Provider: Yasir Esquivel Clinical Impression: Sepsis, Diabetes, Accelerated hypertension, Tachycardia with hypertension, Cellulitis Condition: Stable Coding Level of Care Code ED Inside Technical Sales Representative for Chg Fwd Exam Comprehensive
[2021-12-04] MEDS: metoprolol tartrate 1 mg/1 mL SDV 5 mL 5 MG (16:48)
[2021-12-04] MEDS: enalaprilat 1.25 mg/mL Inj IVP (16:48)
[2021-12-04] MEDS: hyDRALAzine 20 mg/mL INJ 1 mL IVP (16:52)
[2021-12-04 16:53] LABS: Basophils # 0.1 10^3/uL (0.0-0.1); Basophils % 0.2 %; Hematocrit 43.6 % (42.0-52.0); Hemoglobin 14.8 g/dL (11.7-16.6); Lymphocytes # 0.9 10^3/uL (0.8-4.8); Lymphocytes % 3.5 %; Mean Corpuscular HGB Conc 33.9 g/dL (30.0-36.0); Mean Corpuscular Hemoglobin 29.6 pg (28.0-34.0); Mean Corpuscular Volume 87.2 fl (80-94); Mean Platelet Volume 10.7 fL (7.4-10.4); Monocytes # 1.5 10^3/uL (0.2-0.9); Monocytes % 5.8 %; Neutrophils # 23.49 10^3/uL (1.8-7.7); Neutrophils % 89.8 %; Nucleated Red Blood Cells % 0 %; Platelet Count 168 10^3/cmm (130-400); Red Cell Distribution Width 13.6 % (12.1-15.1); White Blood Count 26.2 10^3/uL (4.0-10.0)
--- NOTE | 2021-12-04 17:04 | XRR_ITS ---
PROCEDURE INFORMATION: Exam: XR Right Foot Exam date and time: 12/04/2021 5:12 PM Age: 51 years old Clinical indication: Condition or disease; Other: Ulcer; Additional info: Foot ulcer TECHNIQUE: Imaging protocol: Radiologic exam of the Right foot. Views: 3 or more views. COMPARISON: CR XR foot RT min 3V* [id number] 06/25/2021 10:27 AM FINDINGS: Bones/joints: Chronic partial resection of the 1st metatarsal with stable residual bone fragments. The other bones are intact and in normal alignment. Degenerative changes of the ankle, intertarsal, and 1st interphalangeal joints. Soft tissues: Dorsal soft tissue swelling. XR/XR foot RT min 3V* [id number] IMPRESSION: No acute skeletal finding.
[2021-12-04] MEDS: ondansetron 2 mg/ML SDV 2 mL 4 MG IVP (17:07)
[2021-12-04] MEDS: esmolol drip 2,500 MG/250 ML PREMIX 38.1 MG IV (17:16)
[2021-12-04 17:18] LABS: Troponin(5th) Baseline 21 ng/L (0-15)
[2021-12-04 17:20] LABS: Alanine Aminotransferase 13 U/L (0-41); Albumin Level 4.3 g/dL (3.5-5.2); Alkaline Phosphatase 126 IU/L (40-130); Anion Gap 21.2 (5-19); Aspartate Amino Transferase 15 U/L (0-40); Blood Urea Nitrogen 19 mg/dL (6-20); Calcium 9.2 mg/dL (8.5-10.5); Carbon Dioxide 23 mmol/L (22-29); Chloride 95 mmol/L (98-107); Creatine Phosphokinase 320 U/L (39-308); Globulin 2.5 g/dL (1.3-4.6); Glomerular Filtration Rate 39.8 mL/min (90-130); Glucose 300 mg/dL (65-115); Osmolality Calculated 293 mOsm/kg (285-295); Potassium 4.2 mmol/L (3.5-5.1); Sodium 135 mmol/L (136-145); Total Protein 6.8 g/dL (6.6-8.7)
[2021-12-04] MEDS: vancomycin 1,000 MG in sodium chloride 0.9% 250 ML 250 MG IV (17:44)
--- NOTE | 2021-12-04 18:22 | ECG_ITS ---
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 Measurements Intervals [place] Rate: 101 P: 47 SD: 169 QRS: -16 QRSD: 105 T: 64 QT: 331 QTc: 430 Interpretive Statements SINUS TACHYCARDIA POSSIBLE LEFT ATRIAL ENLARGEMENT [-0.1mV P-WAVE IN V1/V2] LEFT VENTRICULAR HYPERTROPHY AND ST-T CHANGE [VOLTAGE CRITERIA PLUS ST/T ABNORMALITY] Compared to ECG 12/04/2021 17:30:58 No significant changes Electronically Signed On 12-04-2021 21:39:57 CDT by Maria Luisa Goodman M.D. [id number]
[2021-12-04 18:53] LABS: Erythrocyte Sedimentation Rate 68 mm/hr (0-10)
[2021-12-04 19:11] LABS: NT Pro B Type Natriuretic Pept 702 pg/mL (0-125); Procalcitonin 2.14 ng/mL (0-0.5)
[2021-12-04 19:19] LABS: Vitamin B12 475 pg/mL (232-1245)
--- NOTE | 2021-12-04 19:21 | CTR_ITS ---
PROCEDURE INFORMATION: Exam: CT Right Lower Extremity Without Contrast, Foot Exam date and time: 12/04/2021 7:48 PM Age: 51 years old Clinical indication: Condition or disease; Other: Chronic osteomyelitis; Additional info: Possible osteo TECHNIQUE: Imaging protocol: CT of the Right lower extremity without contrast was performed. Exam focused on the foot. Radiation optimization: All CT scans at this facility use at least one of these dose optimization techniques: automated exposure control; mA and/or kV adjustment per patient size (includes targeted exams where dose is matched to clinical indication); or iterative reconstruction. COMPARISON: CT foot RT wo con* [id number] 01/29/2021 10:28 PM RADIATION DOSE METRICS: Total DLP (mGy-cm): 169.83 FINDINGS: Bones/joints: Benign bone islands in the distal tibia and cuboid. Resection of the mid and distal 1st metatarsal. There is slight irregularity in the base of the great toe proximal phalanx which appears chronic. No definite active bone destruction identified. Small residual bone fragments within the osteotomy defect. Mild degenerative changes of the intertarsal and 1st interphalangeal joints. Soft tissues: Subcutaneous soft tissue edema/cellulitis in the dorsal foot. Soft tissue density and skin thickening with possible ulceration along the medial aspect of the 1st metatarsal and metatarsophalangeal joint. No soft tissue gas visualized. CT/CT foot RT wo con* [id number] IMPRESSION: 1. No definite evidence for active osteomyelitis. 2. Resection of the mid and distal 1st metatarsal. 3. Probable cellulitis and ulceration in the medial great toe and in the region of the 1st metatarsophalangeal joint. 4. Subcutaneous soft tissue edema/cellulitis in the dorsal foot. No definite discrete abscess identified.
--- NOTE | 2021-12-04 19:22 | P.HP_ITS ---
Providers/Chief Complaint Primary Care Provider: DAVID Pack Chief Complaint: abnormal heart rate History of Present Illness Roney Anthony is a 51 year old male with past medical history of insulin-dependent type 2 diabetes mellitus, uncontrolled hypertension, possibility of noncompliance, COVID-19 in 2020, right foot MSSA osteomyelitis for which he received treatment with IV vancomycin in April and follows up with Dr. Mik colunga as an outpatient for symptom from the podiatry clinic today when he was found to be tachycardic with heart rate going up to possibly 200 bpm and the clinic to the ER. In the ER patient was found to be tachycardic with heart rate up in 130s and blood pressure systolic over 200s. On examination he complains of multiple episodes of nausea and vomiting over the past 3 days which started quite suddenly. He is also complaining of fever with chills over the same timeframe. He denies any diarrhea or abdominal pain. He has also noted his right foot to be becoming more swollen and erythematous over the past 3 days. States he has a dry cough but no other URI symptoms. Denies any chest pain shortness of breath. Noted to be desaturating to 78% while asleep, he does have a history of sleep apnea, however is noncompliant with CPAP. Upon being woken up he is saturating 95 to 96% on 2 L/min nasal cannula. Review of Systems General: Reports: 10 or more systems reviewed and unremarkable except in HPI and below Const: Denies: fever(s), chills, body aches, change in appetite, change in weight, malaise, night sweats, diaphoresis, change in sleep pattern, daytime sleepiness or snoring Eyes: Denies: change in vision, blurry vision, photophobia, eye discomfort or eye discharge ENMT: Denies: throat pain, enlarged tonsils, hoarseness, mouth pain, oral sores, dry mouth, tinnitus, nasal congestion or post nasal drip Card: Denies: chest pain, palpitations, irregular heart rhythm, edema, swel ling of feet/ankles, lightheadedness, syncope, pre-syncope, dyspnea on exertion, orthopnea, leg pain with exertion or acrocyanosis Resp: Denies: dyspnea, productive cough, non-productive cough, wheezing, stridor, pain on inspiration, change in phlegm color, hemoptysis or chest congestion GI: Denies: abdominal pain, nausea, vomiting, hematemesis, coffee ground emesis, dysphagia, heartburn, diarrhea, constipation, bloating, GI cramping, c hange in bowel habits, pain on defecation, hematochezia or melena : Denies: flank pain, difficulty urinating, dysuria, urinary frequency, urinary urgency, urinary hesitancy, urinary dribbling, difficulty starting urination, change in urine stream, nocturia or hematuria Musc: Denies: neck pain, back pain, extremity pain, joint pain, joint swelling, joint redness, joint stiffness or limited range of motion Neuro: Denies: headache(s), numbness in extremities, weakness in extremities, sensory changes, lack of coordination, difficulty walking, frequent falls, dizziness, vertigo, confusion, Slurred speech present, difficulty communicating thoughts or seizure-like activity Psych: Denies: anxiety, depression, mood swings, panic attacks, hopelessness or irritability Endo: Denies: polyuria, polydipsia, tired all the time, cold intolerance, excessive sweating, flushing or heat intolerance Bowen/Lymph: Denies: easy bruising or easy bleeding All/Imm: Denies: tongue swelling, facial swelling or acute wheezing Medications/Allergies Home Medications Medication Instructions Recorded Confirmed Last Taken Type spironolactone 50 mg tablet 50 mg PO DAILY #90 tabs 12/11/20 12/04/21 12/04/21 Rx aspirin 81 mg tablet,delayed 81 mg PO DAILY #30 tabs 02/10/21 12/04/21 12/03/21 Rx release (Adult Aspirin Regimen) clonidine HCl 0.2 mg tablet 0.2 mg PO BID 04/19/21 12/04/21 12/04/21 History hydralazine 100 mg tablet 100 mg PO TID #90 tabs 05/30/21 12/04/21 Unknown Rx nifedipine 60 mg tablet,extended See Rx Instructions .Route 06/11/21 12/04/21 Unknown Rx release .COMPLEX #90 tabs lisinopril 40 mg tablet 40 mg PO BEDTIME #30 tabs 07/31/21 12/04/21 Unknown Rx rosuvastatin 10 mg tablet 10 mg PO DAILY #30 tabs 07/31/21 12/04/21 Unknown Rx semaglutide 1 mg/dose (4 mg/3 mL) See Rx Instructions .Route 11/07/21 12/04/21 12/03/21 Rx subcutaneous pen injector (Ozempic) .COMPLEX #3 mL celecoxib 100 mg capsule 100 mg PO BID 12/04/21 12/04/21 12/04/21 History furosemide 40 mg tablet 40 mg PO BID 12/04/21 12/04/21 Unknown History potassium chloride 20 mEq 20 meq PO DAILY 12/04/21 12/04/21 Unknown History tablet,extended release(part/cryst) Allergies Allergy/AdvReac Type Severity Reaction Status Date / Time Penicillins Allergy Unknown Verified 12/04/21 15:36 PFSH Acute PFSH: Medical History (Updated 12/05/21 @ 08:34 by Homero Ponce DO) Acute conjunctivitis, right eye Anemia BPH (benign prostatic hyperplasia) Cellulitis Diabetes Diabetes mellitus with polyneuropathy Dyslipidemia Edema Neuropathy Osteomyelitis of toe of right foot Pneumonia due to COVID-19 virus Post-acute COVID-19 syndrome Respiratory failure with hypoxia Saphenous vein clot Sleep apnea Family History Other CAD (coronary artery disease) Hypertension Social History Smoking and tobacco status: never smoked Vitals/I&O/Wt Last Vital Signs Temp 98.3 F 12/04/21 16:16 Pulse 101 H 12/04/21 19:00 Resp 28 H 12/04/21 19:00 BP 133/77 12/04/21 19:00 Pulse Ox 92 12/04/21 19:00 12/04/21 12/04/21 12/04/21 06:59 14:59 22:59 Intake Total 11.43 / 11.43 Balance 11.43 / 11.43 Weight last 48 hrs Weight 127.006 kg Physical Exam Narrative: General: AO x3, flushed, ill-appearing HEENT: PERRLA, pupils bilaterally equal and reactive Chest: Normal vesicular breath sounds, no added sounds, equal good air entry bilaterally CVS: S1-S2 regular, no murmurs, no tachycardia, no gallops, no rubs Abdomen: Soft, nontender, no organomegaly, bowel sounds present Neuro: No focal deficits, no facial deformity, AO x3, power 5/5 in all limbs Extremity: Right foot swollen, erythematous, tense to touch. Changes extending over up to ankle. Superficial ulceration noted over lower part of the leg. Data : 12/05/21 01:54 12/05/21 01:54 Other Labs: 12/04/21 CT/CT foot RT wo con* [id number] IMPRESSION: 1. No definite evidence for active osteomyelitis. 2. Resection of the mid and distal 1st metatarsal. 3. Probable cellulitis and ulceration in the medial great toe and in the region of the 1st metatarsophalangeal joint. 4. Subcutaneous soft tissue edema/cellulitis in the dorsal foot.? No definite discrete abscess identified. XR/XR chest 1V portable [id number] IMPRESSION: No acute findings.? A&P Assessment and plan (1) Resistant hypertension: Status: Acute (2) Sepsis: Status: Acute (3) Cellulitis of foot, right: Status: Acute (4) CPAP (continuous positive airway pressure) dependence: Status: Acute (5) Diabetes: Status: Chronic Qualifiers: Diabetes mellitus complication status: without complication Diabetes mellitus intermodal customer service insulin use: without intermodal customer service use Diabetes mellitus type: type 2 Qualified Code(s): E11.9 - Type 2 diabetes mellitus without complications (6) Obesity (BMI 30-39.9): Status: Acute Plan 51-year-old with past medical history of uncontrolled hypertension, type 2 diabetes mellitus, chronic osteomyelitis of the foot presents to the ER because he was found to be tachycardiac at podiatry clinic on presentation to the ER had uncontrolled hypertension, tachycardia with elevated white count. Sepsis: Ruled in with tachycardia, leukocytosis, target organ injury with acute kidney injury. Source right foot osteomyelitis versus cellulitis: Check ESR, CRP. History of MSSA osteomyelitis. Check foot CT scan. If study is equivocal will do MRI. Dr. Burgos has been consulted from the ER. For now start on vancomycin and cefepime. Patient is allergic to penicillin. Antibiotics as per creatinine clearance. Check blood culture, procalcitonin, MRSA swab. Will de-escalate antibiotics as per culture results. Uncontrolled hypertension: History of resistant hypertension: Patient started on esmolol drip in the ER. Given enalaprilat as well. Restart home medications of clonidine 0.2 mg twice daily, hydralazine 100 mg 3 times daily, nifedipine 60 mg oral daily. Hold off on lisinopril for now given patient has an KARI. Start on metoprolol 75 mg twice daily. Wean off esmolol drip keeping target blood pressures systolic of 180s which is 25% or less then presenting blood pressure. Acute kidney injury: Could be secondary to sepsis in setting of ROMAN inhibitor and Lasix at home. Hold off on Lasix and lisinopril. Medical reconciliation done for nephrotoxic drugs. Check urinalysis, urine creatinine, urine lites, CPK Monitor BMP daily. Check CT abdomen pelvis without contrast to rule out obstructive nephropathy. Intractable nausea, vomiting: Currently controlled with zofran. Check amylase, lipase. Check Covid Ag Type 2 diabetes mellitus: Insulin sliding scale moderate dose protocol. Carb consistent cardiac diet. Check A1c. Continue other chronic medications. Analgesia: Tylenol, [place] as needed Glycemic control: Insulin sliding scale moderate dose protocol Nutrition: Cardiac carb consistent diet CODE STATUS: Full code PUD prophylaxis: Protonix DVT prophylaxis: Lovenox 40 mg subcu daily Discharge planning: Discharge home once medically cleared. Admit to CSU. Attestations Medical Necessity Statement*: Admission for more than 2 midnights for management of uncontrolled hypertension, diabetes mellitus, sepsis secondary to possible osteomyelitis versus right foot cellulitis Time Spent in Patient Care: Greater than 35 minutes Critical Care Time: The high probability of a clinically significant, sudden or life threatening deterioration of the patient's [cardiac, ID, renal] system(s) required my full and direct attention, intervention and personal management. The critical care time is as shown. This time is in addition to time spent performing any reported procedures but includes the following: [x] Data and vital sign review and interpretation [x] Patient assessment, examination and intervention [x] Documentation [x] Medication orders and management Critical Care Time (min): 60 Coding Level of Care Code Acute Fence Supervisor for g Fwd Diagnoses Resistant hypertension I10 Sepsis A41.9 Cellulitis of foot, right L03.115 CPAP (continuous positive airway pressure) dependence Z99.89 Diabetes E11.9 Diabetes mellitus complication status: without complication Diabetes mellitus intermodal customer service insulin use: without intermodal customer service use Diabetes mellitus type: type 2 Obesity (BMI 30-39.9) E66.9
[2021-12-04] MEDS: pantoprazole 40 mg SDV IVP (19:23)
[2021-12-04] MEDS: cefepime 2,000 MG in sodium chloride 0.9% (plus) 50 ML 100 MG IV (19:24)
[2021-12-04] MEDS: sodium chloride 0.9% 1,000 ML 75 ML IV (19:24)
[2021-12-04 19:32] LABS: Iron 16 ug/dL (59-158); Percent Saturation 5.6 % (20-50); Total Iron Binding Capacity 284 mcg/dl; Unsaturated Iron Binding 268 ug/dL (112-347)
[2021-12-04 19:33] LABS: Troponin 5 2HR 25.83 ng/L (0-15)
[2021-12-04 19:33] LABS: C Reactive Protein 363.9 mg/L (0.0-4.9)
[2021-12-04 20:03] LABS: Troponin 5 2HR Delta 4.83 ABS# (0-10)
[2021-12-04] MEDS: metoprolol tartrate 25 mg Tablet 75 MG PO (21:30)
[2021-12-04 21:42] LABS: Glucose Point of Care 264 mg/dL (70-110)
--- NOTE | 2021-12-04 22:22 | ECG_ITS ---
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 Measurements Intervals [place] Rate: 86 P: 49 CO: 170 QRS: -9 QRSD: 111 T: 57 QT: 369 QTc: 442 Interpretive Statements SINUS RHYTHM POSSIBLE LEFT VENTRICULAR HYPERTROPHY [VOLTAGE CRITERIA PLUS LAE OR QRS WIDENING] NONSPECIFIC T-WAVE ABNORMALITY Compared to ECG 12/04/2021 18:24:51 T-wave abnormality now present Sinus tachycardia no longer present ST (T wave) deviation no longer present Electronically Signed On 12-05-2021 16:32:17 CDT by Antoine Cook M.D. [email or web address]
[2021-12-04] MEDS: cloNIDine 0.1 mg Tablet 0.2 MG PO (22:24)
[2021-12-04] MEDS: heparin 5,000 unit/mL INJ 1 mL 5000 UNIT SUBCUT (22:24)
[2021-12-04] MEDS: insulin lispro 100 unit/1 mL SUBCUT (22:25)
[2021-12-04] MEDS: hyDRALAzine 50 mg Tablet 100 MG PO (22:25)
[2021-12-04 23:01] LABS: Amylase 18 U/L (28-100); Lipase 17 U/L (13-60)
[2021-12-05] VITALS (56 sets, daily range): BP systolic 95–162; BP diastolic 50–89; PULSE 60–89; RESP 16–28; TEMP 36.7–39.3; O2SAT 88–100; BMI 43.0
[2021-12-05 00:37] LABS: SARS Covid-2 Antigen Negative (Negative)
[2021-12-05 02:05] LABS: Basophils # 0.1 10^3/uL (0.0-0.1); Basophils % 0.3 %; Hematocrit 40.7 % (42.0-52.0); Hemoglobin 13.3 g/dL (11.7-16.6); Lymphocytes # 1.2 10^3/uL (0.8-4.8); Lymphocytes % 4.3 %; Mean Corpuscular HGB Conc 32.7 g/dL (30.0-36.0); Mean Corpuscular Hemoglobin 29.3 pg (28.0-34.0); Mean Corpuscular Volume 89.6 fl (80-94); Mean Platelet Volume 10.5 fL (7.4-10.4); Monocytes # 1.8 10^3/uL (0.2-0.9); Monocytes % 6.5 %; Neutrophils # 24.57 10^3/uL (1.8-7.7); Neutrophils % 88.2 %; Nucleated Red Blood Cells % 0 %; Platelet Count 172 10^3/cmm (130-400); Red Blood Count 4.54 10^6/uL (4.1-5.3); White Blood Count 27.8 10^3/uL (4.0-10.0)
[2021-12-05 02:22] LABS: Estmated Average Glucose 174; Hemoglobin A1C 7.7 % (4.0-6.0)
[2021-12-05 02:25] LABS: Alanine Aminotransferase 11 U/L (0-41); Albumin Level 3.3 g/dL (3.5-5.2); Alkaline Phosphatase 104 IU/L (40-130); Anion Gap 17.1 (5-19); Aspartate Amino Transferase 16 U/L (0-40); Blood Urea Nitrogen 27 mg/dL (6-20); Calcium 8.7 mg/dL (8.5-10.5); Carbon Dioxide 25 mmol/L (22-29); Chloride 94 mmol/L (98-107); Chol HDL Ratio 2.29 mg/dL (1.0-5.00); Cholesterol 94 mg/dL (0-200); Globulin 3.4 g/dL (1.3-4.6); Glomerular Filtration Rate 22.1 mL/min (90-130); Glucose 215 mg/dL (65-115); HDL Cholesterol 41 mg/dL (60-100); LDL Cholesterol Calculated 28 mg/dL (50-129); Magnesium 1.7 mg/dL (1.7-2.3); Osmolality Calculated 286 mOsm/kg (285-295); Phosphorus 1.4 mg/dL (2.5-4.5); Potassium 4.1 mmol/L (3.5-5.1); Sodium 132 mmol/L (136-145); Total Bilirubin 0.8 mg/dL (0.15-1.2); Total Protein 6.7 g/dL (6.6-8.7); Triglycerides 126 mg/dL (0-150); Troponin 5 6HR 33.25 ng/L (0-15); VLDL Cholestrol Calculation 25 mg/dL (0-30)
--- NOTE | 2021-12-05 02:39 | CT_ITS ---
WS: [id number] CT ABDOMEN AND PELVIS NONCONTRAST HISTORY: vomiting, abdominal pain TECHNIQUE: Imaging performed through the abdomen and pelvis. Coronal and sagittal reformats are submi tted. All CT scans at [facility] use at least one of these dose optimization techniques: auto mated exposure control; mA and/or kV adjustment per patient size (includes targeted exams where dose is matched to clinical indication); or iterative reconstruction. DLP: 1689.55 mGy.cm COMPARISON: None available. Artifact through the abdomen from the patient's arms been placed across the abdomen. Lower thorax: Dependent changes and mild groundglass attenuation at the lung bases. Probably due to p oor inspiration. Mild cardiomegaly. Liver: Normal size with hepatic steatosis. Gallbladder: Normal gallbladder. Pancreas: Normal size and attenuation. Normal pancreatic duct. No pancreatitis or mass. Spleen: Normal. Adrenal glands: Normal. No mass. Right kidney: Mild perinephric stranding with no obstruction. Left kidney: Mild perinephric stranding with no obstruction. Aorta: Normal abdominal aorta, no aneurysm or atherosclerosis. No free fluid. There are several mildly prominent but not significantly enlarged lymph nodes along th e RIGHT common iliac and external iliac chain. The largest lymph node measures 13 mm along the distal RIGHT external iliac chain. GI tract: Normal appendix. No GI tract obstruction. Distal colonic diverticulosis without diverticuli tis. Abdominal wall: Negative. No hernia. Pelvis: Díaz catheter present in a nondistended bladder. No free fluid or adenopathy. Osseous structures: There are several small sclerotic foci within the bones of the pelvis and lumbar spine which are very nonspecific. Correlate with PSA level. CT/CT abdomen pelvis wo con [id number] IMPRESSION: 1. No renal obstruction. 2. Numerous small indeterminate lymph nodes along the RIGHT common and externa l iliac chain with the largest measuring 13 mm. These may be reactive but are b orderline enlarged. Patient has a history of osteomyelitis of the RIGHT foot wh ich may explain these lymph nodes. 3. Díaz catheter in a nondistended urinary bladder. 4. There are a few very minimal sclerotic bone lesions in the pelvis and poste rior L4 vertebral body. These may be benign bone islands.
[2021-12-05 02:40] LABS: Troponin 5 6HR Delta 12.25 ng/L (0-12)
[2021-12-05] MEDS: acetaminophen 325 mg Tablet 650 MG PO (04:20)
[2021-12-05 04:56] LABS: Creatine Phosphokinase 676 U/L (39-308)
[2021-12-05 05:35] LABS: Add Urine Microscopic? YES; Bilirubin Urine 1+ (Negative); Blood Urine 3+ (Negative); Glucose Urine UA 4+ (Normal); Ketones Urine 1+ (Negative); Leukocyte Esterase Urine Negative (Negative); Nitrate Urine Negative (Negative); Protein Urine Neg (Negative); Urine Appearance Cloudy (CLEAR); Urine Color Brown (Yellow); Urobilinogen Urine 1 mg/dL (Negative); pH Urine 5 (5-7)
[2021-12-05 05:36] LABS: Add Urine Culture? Yes; Amorphous Sediment Urine 4+ /hpf; Bacteria Urine 2+ /hpf; Squamous Epithelial Cell Urine 0-4 /hpf (0-5); WBC Urine 0-4 /hpf (0-5)
[2021-12-05 05:45] LABS: Glucose Point of Care 214 mg/dL (70-110)
--- NOTE | 2021-12-05 07:11 | PM.CONSULT ---
Providers/Reason For Consult Consulting Physician/Specialty*: Pleasant 51-year-old diabetic male admitted to the ICU for tachycardia and malaise. Presented to podiatry clinic on 12/04/2021, tachycardia on triage and deferred to emergency department and subsequently admitted. He reports a 3 to 4-day history of feeling weak and lack of appetite. Also 3 to 4-day history of increased redness and swelling to his right foot. History of impressive diabetic foot ulcer with osteomyelitis to the great toe and first metatarsal of the right foot that was managed both surgically and medically in 2020 treatments included extensive wound care, hyperbarics, surgical debridement and partial amputation combined with IV vancomycin through PICC line for greater than 6 weeks. Patient eventually went on to heal his wound and return to diabetic shoe gear and decreased to daily activities. Reason for Consult*: Cellulitis right lower extremity Attending Physician: Yasir Esquivel MD Primary Care Provider: DAVID Pack History of Present Illness History of Present Illness Roney Anthony is a 51 year old male Review of Systems General: Reports: 10 or more systems reviewed and unremarkable except in HPI and below Const: Denies: fever(s) or chills Card: Denies: chest pain or palpitations Resp: Denies: productive cough GI: Denies: abdominal pain, nausea or vomiting : Denies: flank pain Musc: Reports: extremity swelling, joint pain, joint stiffness, limited range of motion and deformity Skin/Breast: Reports: erythema, skin swelling, sores, nail changes and change in hair; Denies: rash Neuro: Reports: numbness in extremities, sensory changes and difficulty walking Psych: Denies: suicidal ideation Bowen/Lymph: Denies: easy bruising Medications/Allergies Home Medications Medication Instructions Recorded Confirmed Last Taken Type spironolactone 50 mg tablet 50 mg PO DAILY #90 tabs 12/11/20 12/04/21 12/04/21 Rx aspirin 81 mg tablet,delayed 81 mg PO DAILY #30 tabs 02/10/21 12/04/21 12/03/21 Rx release (Adult Aspirin Regimen) clonidine HCl 0.2 mg tablet 0.2 mg PO BID 04/19/21 12/04/21 12/04/21 History hydralazine 100 mg tablet 100 mg PO TID #90 tabs 05/30/21 12/04/21 Unknown Rx nifedipine 60 mg tablet,extended See Rx Instructions .Route 06/11/21 12/04/21 Unknown Rx release .COMPLEX #90 tabs lisinopril 40 mg tablet 40 mg PO BEDTIME #30 tabs 07/31/21 12/04/21 Unknown Rx rosuvastatin 10 mg tablet 10 mg PO DAILY #30 tabs 07/31/21 12/04/21 Unknown Rx semaglutide 1 mg/dose (4 mg/3 mL) See Rx Instructions .Route 11/07/21 12/04/21 12/03/21 Rx subcutaneous pen injector (Ozempic) .COMPLEX #3 mL celecoxib 100 mg capsule 100 mg PO BID 12/04/21 12/04/21 12/04/21 History furosemide 40 mg tablet 40 mg PO BID 12/04/21 12/04/21 Unknown History potassium chloride 20 mEq 20 meq PO DAILY 12/04/21 12/04/21 Unknown History tablet,extended release(part/cryst) Allergies Allergy/AdvReac Type Severity Reaction Status Date / Time Penicillins Allergy Unknown Verified 12/04/21 15:36 Current Medications Generic Name Dose Route Start Last Admin Trade Name Freq PRN Reason Stop Dose Admin Acetaminophen 650 mg 12/04/21 20:03 12/05/21 04:20 Acetaminophen 325 Mg Tablet PO 650 mg Q6H PRN Administration Mild/Mod Pain Or Temp >/= 101 Clonidine HCl 0.2 mg 12/04/21 19:30 12/04/21 22:24 Clonidine 0.1 Mg Tablet PO 0.2 mg BID@0900,2100 SONIA Administration Heparin Sodium (Porcine) 5,000 unit 12/04/21 21:00 12/04/21 22:24 Heparin 5,000 Unit/Ml Inj 1 Ml SUBCUT 5,000 unit Q12H SONIA Administration Hydralazine HCl 100 mg 12/04/21 21:00 12/04/21 22:25 Hydralazine 50 Mg Tablet PO 100 mg TID SONIA Administration Esmolol HCl 2,500 mg in 250 mls @ 0 mls/hr 12/04/21 17:15 12/04/21 21:36 Brevibloc Drip IV Infused .Q0M SONIA Titration Protocol Per Protocol Sodium Chloride 1,000 mls @ 75 mls/hr 12/04/21 18:31 12/04/21 19:24 Sodium Chloride 0.9% IV 75 mls/hr .[id number] SONIA Administration Cefepime HCl 2,000 mg/ Sodium 50 mls @ 100 mls/hr 12/04/21 20:00 12/04/21 23:54 Chloride IV Infused Q12H SONIA Infusion Protocol Insulin Human Lispro 0 unit 12/04/21 21:00 12/04/21 22:25 Insulin Lispro 100 Unit/1 Ml SUBCUT 10 unit WM&BEDTIME SONIA Administration Protocol Metoprolol Tartrate 75 mg 12/04/21 19:30 12/04/21 22:24 Metoprolol Tartrate 25 Mg Tablet PO Not Given BID@0900,2100 SONIA Pantoprazole Sodium 40 mg 12/04/21 18:31 12/04/21 19:23 Pantoprazole 40 Mg Sdv IVP 40 mg Q24H SONIA Administration PFSH Acute PFSH: Medical History (Updated 12/05/21 @ 16:33 by Tej Burgos DPM) Acute conjunctivitis, right eye Anemia BPH (benign prostatic hyperplasia) Cellulitis Diabetes Diabetes mellitus with polyneuropathy Dyslipidemia Edema Neuropathy Osteomyelitis of toe of right foot Pneumonia due to COVID-19 virus Post-acute COVID-19 syndrome Respiratory failure with hypoxia Saphenous vein clot Sleep apnea Family History Other CAD (coronary artery disease) Hypertension Social History Smoking and tobacco status: never smoked Vitals/I&O/Wt Last Vital Signs Temp 100.6 F H 12/05/21 05:40 Pulse 68 12/05/21 06:45 Resp 18 12/05/21 06:45 BP 111/64 12/05/21 06:45 Pulse Ox 97 12/05/21 06:45 O2 Del Method 12/04/21 23:20 O2 Flow Rate 2 12/04/21 23:20 FiO2 35 12/05/21 05:53 12/04/21 12/05/21 12/05/21 22:59 06:59 14:59 Intake Total 250.00 / 250.00 1260 / 1510.00 Output Total 250 / 250 Balance 250.00 / 250.00 1010 / 1260.00 Weight last 48 hrs Weight 291 lb 9.6 oz Weight 291 lb 11.2 oz Weight 280 lb Physical Exam Narrative: Patient is alert and oriented ?3 and in no acute distress.? The following is a focused bilateral lower extremity exam. VASCULAR: Dorsalis pedis palpable +2 bilaterally, posterior tibial arteries palpable +2 bilaterally.? Capillary refill time less than 3 seconds to the distal hallux bilaterally. Calf is supple and nontender proximally and distally. Edema to the right foot and leg. NEUROLOGICAL: Protective sensation intact 0/10 sites, tested with [place] Misti monofilament to bilateral feet. DERMATOLOGICAL: No open wounds at this time to the right lower extremity. Previously site of diabetic foot infection and site of osteomyelitis does not have any soft tissue deficit, no wound or sinus tract or preulcerative lesions. Patient has a stage I stable appearing wound at the distal tuft plantarly at the left hallux without surrounding erythema or purulent drainage, does not probe to deep structures. MUSCULOSKELETAL: No pain with posterior calf squeeze bilaterally. Muscle strength 5 out of 5 in all three cardinal planes to the right foot and ankle. No soft tissue crepitus on palpation. Urinary Catheter Management: Díaz: Cath Placed During This Visit: yes Reason for Continuing Indwelling Catheter: Accurate Measurement of Urinary Output in Critically Ill Patients Urinary Catheter Date of Insertion: 12/05/21 Urinary Catheter Time of Insertion: 01:38 Data : 12/05/21 01:54 12/05/21 01:54 Micro: Microbiology 12/05/21 03:50 Legionella Urinary Antigen - Final Urine,Clean Catch 12/04/21 20:41 Blood Culture - Preliminary Blood SPECIMEN COLLECTED 12/04/21 20:41 Blood Culture - Preliminary Blood SPECIMEN COLLECTED A&P Assessment and plan (1) Cellulitis of foot, right: Status: Acute (2) Chronic osteomyelitis of right foot: Pleasant 51-year-old diabetic male admitted to the ICU for tachycardia and malaise. Presented to podiatry clinic on 12/04/2021, tachycardia on triage and deferred to emergency department and subsequently admitted. He reports a 3 to 4-day history of feeling weak and lack of appetite. Also 3 to 4-day history of increased redness and swelling to his right foot. History of impressive diabetic foot ulcer with osteomyelitis to the great toe and first metatarsal of the right foot that was managed both surgically and medically in 2020 treatments included extensive wound care, hyperbarics, surgical debridement and partial amputation combined with IV vancomycin through PICC line for greater than 6 weeks. Patient eventually went on to heal his wound and return to diabetic shoe gear and decreased to daily activities. Status: Acute (3) Diabetic peripheral neuropathy associated with type 2 diabetes mellitus: Status: Acute Plan Patient is febrile with leukocytosis, ESR 68. X-ray taken 12/04/2021 shows stable postoperative changes with resection of the base of the proximal phalanx and resection of the head of the first metatarsal. Comparison view that was taken 07/10/2021 actually shows improvement of disuse osteopenia with small erosive changes at the distal phalanx has now resolved. Osteotomy site through the base of the proximal phalanx and at the first metatarsal are well corticated without further osseous destruction. Bony fragments within the interspace are well corticated have smooth rounded appearance without resorption or periosteal reaction. CT scan not indicative of osteomyelitis or drainable abscess. Laboratory findings are indicative of potential osteomyelitis acute on chronic at the right foot however his clinical picture he does not have any open wound. Over the past 24 hours his cellulitis and edema to the right lower extremity has significantly improved while on IV antibiotics. Imaging not suggestive of osteomyelitis at this time. Given the mixed findings would like to monitor closely as he is improving with IV antibiotics. 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
[2021-12-05 08:09] LABS: Glucose Point of Care 245 mg/dL (70-110)
[2021-12-05] MEDS: cefepime 2,000 MG in sodium chloride 0.9% (plus) 50 ML 100 MG IV ×2 (08:46→09:14)
[2021-12-05] MEDS: sodium chloride 0.9% 1,000 ML 75 ML IV (08:48)
[2021-12-05] MEDS: ferrous gluconate 324 mg Tablet PO (08:49)
[2021-12-05] MEDS: atorvastatin 40 mg Tablet PO (08:49)
[2021-12-05] MEDS: docusate sodium 100 mg Capsule PO (08:49)
[2021-12-05] MEDS: cloNIDine 0.1 mg Tablet 0.2 MG PO (08:49)
[2021-12-05] MEDS: hyDRALAzine 50 mg Tablet 100 MG PO (08:50)
[2021-12-05] MEDS: NIFEdipine ER (24 hr) 30 mg Tablet 60 MG PO (08:50)
[2021-12-05] MEDS: aspirin 81 mg EC Tablet PO (08:50)
[2021-12-05] MEDS: insulin lispro 100 unit/1 mL SUBCUT ×3 (08:51→21:20)
[2021-12-05] MEDS: heparin 5,000 unit/mL INJ 1 mL 5000 UNIT SUBCUT ×2 (08:51→21:08)
[2021-12-05] MEDS: metoprolol tartrate 25 mg Tablet 75 MG PO (08:51)
--- NOTE | 2021-12-05 10:17 | PC.CHAP ---
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 systems superintendent visit [] Patient/Family/Request visit [] Outpatient visit [] Follow-up visit [] Physician referral [] Code/Alert [x] Routine visit [] Staff referral [] Actively dying [] Patient sleeping [] Family support [] [] Out of room [] Palliative care [] [x] Receiving care in room [] Pre-surgical visit [] Trauma [] Long length of stay [x] ICU visit [] Other: Relational/Emotional Strength [] Patient feels connected with others/family/visitors/staff [] Distress [] Loneliness/isolation [] Abandonment Spirituality of Patient [] Person of Fior [] Attends Hindu of their F[place] [] Believes in Prayer [] Reads Bible or Catholic materials [] There are Spiritual issues to be addressed Forest Patrolman Interventions [x] Prayer [] Active listening [] Non-anxious presence [] Spiritual/emotional support [] Crisis/trauma care [] Spiritual counseling [] Bereavement support [] Provided bereavement packet [] Provided Bible/devotional materials [] Provided toy/stuffed animal, coloring book to patient or family member [] Provided Communion [] Anointing/[place] [] Salvation [x] Completed spiritual assessment [] Other: Impact on Illness or Injury [] Angry [] Fearful [] Anxious [] Often cries [] Exhaustion [] Unable to work [] Unable to attend synagogue [] Unable to walk/stand [] Unable to read [] Unable to drive [] Unable to eat/drink [] Unable to sleep [] Unable to be with family [] Patient intubated [] Other: Summary Time spent with patient
[2021-12-05 11:06] LABS: Amphetamines Screen Urine Negative (Negative); Barbiturates Screen Urine Negative (Negative); Benzodiazepines Screen Urine Negative (Negative); Cocaine Screen Urine Negative (Negative); Opiate Screen Urine Negative (Negative); PCP Screen Urine Negative (Negative); THC Screen Urine Negative (Negative)
[2021-12-05 11:21] LABS: Potassium, Radom Urine 62 mmol/L; Urine Creatinine 438 mg/dL (39-259)
[2021-12-05 11:23] LABS: Urine Random Chloride 11 mmol/L; Urine Random Sodium 12 mmol/L
[2021-12-05 12:01] LABS: Glucose Point of Care 242 mg/dL (70-110)
[2021-12-05 12:18] LABS: ABG PCO2 33.5 mmHg (35-45); ABG PH Result 7.42 (7.35-7.45); Alveolar-Arterial Oxygen Gradi 14.4 mmHg (5-10); Arterial Blood Gas Hematocrit 38.7 % (42-52); Base Excess ABG -2.1 mmol/L (-2.0-2.0); Blood Gas Allen Test Pos; Blood Gas LPM 3.5 %; Blood Gas Operator Identificat MONRO; Blood Gas Sample Site Radial, left; Blood Gas Sample Type Arterial; Carboxyhemoglobin 1.5 %THgb (0.4-20.1); HCO3 ABG 21.8 mmol/L (22-26); HGB O2 Sat 95.1 % (95-100); Ionized Calcium Level - ABG 1.1 mmol/L (1.1-1.4); Methemoglobin 0.5 % (0.4-1.5); Oxygen Device NC; Oxygen Saturation ABG 97.1; PO2 ABG 88.9 mmHg (80.0-100.0); Potassium Level - ABG 4.5 mmol/L (3.5-5.0); Total Hemoglobin 12.6 g/dL (14-18)
[2021-12-05 13:23] LABS: Eosinophil Urine No Eosinophils Seen; Urine Eosinophil Count 0 (0-0)
--- NOTE | 2021-12-05 14:14 | PM.PN ---
Subjective Subjective: Today morning on examination patient sitting up in bed. Have been on BiPAP overnight. Patient did eat breakfast and after that was placed back on the BiPAP. Patient slightly drowsy on examination, waking up and answering appropriately and following commands appropriately on verbal cue. T-max since admission 102 Fahrenheit. Hemodynamically stable. Blood pressure is better controlled off the esmolol drip. Vitals/I&O/Wt Last Vital Signs Temp 100.7 F H 12/05/21 12:00 Pulse 67 12/05/21 12:00 Resp 21 H 12/05/21 12:00 BP 111/57 12/05/21 12:00 Pulse Ox 95 12/05/21 12:00 O2 Del Method 12/05/21 12:00 O2 Flow Rate 3.5 12/05/21 12:00 FiO2 35 12/05/21 09:23 12/04/21 12/05/21 12/05/21 22:59 06:59 14:59 Intake Total 250.00 / 250.00 1260 / 1510.00 1498.667 / 1498.667 Output Total 250 / 250 Balance 250.00 / 250.00 1010 / 1260.00 1498.667 / 1498.667 Weight last 48 hrs Weight 132.268 kg Weight 132.313 kg Weight 127.006 kg Physical Exam Narrative: General: AO x3, flushed, ill-appearing HEENT: PERRLA, pupils bilaterally equal and reactive Chest: Normal vesicular breath sounds, no added sounds, equal good air entry bilaterally CVS: S1-S2 regular, no murmurs, no tachycardia, no gallops, no rubs Abdomen: Soft, nontender, no organomegaly, bowel sounds present Neuro: No focal deficits, no facial deformity, AO x3, power 5/5 in all limbs Extremity: Right foot swollen, erythematous, tense to touch. Changes extending over up to ankle. Superficial ulceration noted over lower part of the leg. Urinary Catheter Management: Díaz: Cath Placed During This Visit: yes Reason for Continuing Indwelling Catheter: Accurate Measurement of Urinary Output in Critically Ill Patients Urinary Catheter Date of Insertion: 12/05/21 Urinary Catheter Time of Insertion: 01:38 Data : 12/05/21 01:54 12/05/21 01:54 Micro: Microbiology 12/04/21 20:41 Blood Culture - Preliminary Blood 12/05/21 03:50 Bacterial Antigens - Final Urine Kidney 12/05/21 03:50 Legionella Urinary Antigen - Final Urine,Clean Catch 12/04/21 20:41 Blood Culture - Preliminary Blood SPECIMEN COLLECTED A&P Assessment and plan (1) Sepsis: Status: Acute (2) Gram-positive bacteremia: Status: Acute (3) Cellulitis of foot, right: Status: Acute (4) Acute kidney injury: Status: Acute (5) Oliguria: Status: Acute (6) Accelerated hypertension: Status: Acute (7) Resistant hypertension: Status: Acute (8) CPAP (continuous positive airway pressure) dependence: Status: Acute (9) Diabetes: Status: Chronic Qualifiers: Diabetes mellitus type: type 2 Diabetes mellitus skilled nursing insulin use: without 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 Sepsis: Ruled in with tachycardia, leukocytosis, target organ injury with acute kidney injury. Source right foot osteomyelitis versus cellulitis or possibly GI in nature: ESR, CRP elevated. CT foot results appreciated. Appreciate Dr. Burgos's recommendation. History of MSSA osteomyelitis. Follow-up blood cultures. 1 out of 4 bottles positive for GPC's from admission. Repeat blood culture in a.m. Continue with vancomycin and cefepime for now. Will dose as per creatinine clearance. Awaiting CT abdomen pelvis without contrast. Check COVID-19 PCR. Urine Legionella, bacterial antigen negative. Urine culture awaited. Uncontrolled hypertension: History of resistant hypertension: Better controlled. Patient off esmolol drip. Decrease dose of clonidine to 0.1 mg twice daily, hydralazine to 75 mg 3 times daily, metoprolol to 50 mg twice daily. Continue with home dose of nifedipine 60 mg daily. Patient started on esmolol drip in the ER. Given enalaprilat as well. Goal blood pressure less than 140/90 on Hg with mean over 65. Acute kidney injury: Could be secondary to sepsis in setting of ROMAN inhibitor and Lasix at home along with being given enalaprilat in the ER. Hold off on Lasix and lisinopril. Medical reconciliation done for nephrotoxic drugs. Urinalysis appreciated. Fena?0.1%?prerenal. CPK elevated Increase normal saline to 125 cc/h. Monitor BMP daily. CT abdomen pelvis elevated. Strict input output charting, daily weights, Díaz catheter. Intractable nausea, vomiting: Currently controlled with zofran. TN less, lipase within normal limits. COVID-19 antigen negative. Check PCR. Stool studies if patient have diarrhea. Type 2 diabetes mellitus: Insulin sliding scale moderate dose protocol. Carb consistent cardiac diet. A1c 7.7. Continue other chronic medications. Analgesia: Tylenol, [place] as needed Glycemic control: Insulin sliding scale moderate dose protocol Nutrition: Cardiac carb consistent diet CODE STATUS: Full code PUD prophylaxis: Protonix DVT prophylaxis: Heparin 5000 every 12 hourly Discharge planning: Discharge home once medically cleared. Continue care at ICU level. 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
--- NOTE | 2021-12-05 16:41 | CTR_ITS ---
PROCEDURE INFORMATION: Exam: CT Head Without Contrast Exam date and time: 12/05/2021 4:56 PM Age: 51 years old Clinical indication: Stroke-like symptoms; Altered mental status/memory loss; Additional info: Possible stroke TECHNIQUE: Imaging protocol: Computed tomography of the head without contrast. Radiation optimization: All CT scans at this facility use at least one of these dose optimization techniques: automated exposure control; mA and/or kV adjustment per patient size (includes targeted exams where dose is matched to clinical indication); or iterative reconstruction. Other technique: STROKE PROTOCOL was implemented. COMPARISON: No relevant prior studies available. RADIATION DOSE METRICS: Total DLP (mGy-cm): 1237.08 FINDINGS: Brain: Age related parenchymal volume loss noted. There is decreased attenuation of the periventricular white matter, consistent with chronic microangiopathic white matter disease. No parenchymal edema identified. No intracranial hemorrhage noted. Old lacunar infarcts, bilateral basal ganglia. Cerebral ventricles: No ventriculomegaly. Paranasal sinuses: Visualized sinuses are unremarkable. No fluid levels. Mastoid air cells: Unremarkable as visualized. No mastoid effusion. Bones/joints: Unremarkable. No acute fracture. Soft tissues: Unremarkable. CT/CT head wo con* [id number] IMPRESSION: No acute intracranial abnormality demonstrated. ASSESSMENT: ASPECTS ([place] Stroke Program Early CT Score) is 10.
--- NOTE | 2021-12-05 17:02 | MRR_ITS ---
PROCEDURE INFORMATION: Exam: MR Head Without Contrast Exam date and time: 12/05/2021 5:55 PM Age: 51 years old Clinical indication: Altered mental status/memory loss; Additional info: Left sided droop TECHNIQUE: Imaging protocol: Magnetic resonance imaging of the head without contrast. COMPARISON: CT head wo con* [id number] 12/05/2021 4:56 PM FINDINGS: Image quality is degraded by motion. Brain: There is no extra-axial collection or intra-axial mass. Mild diffuse volume loss is out of proportion to what is expected for patient age. There are scattered foci of T2/FLAIR white matter hyperintensity, nonspecific but typically small-vessel ischemia in this age group. There are scattered, punctate foci of diffusion restriction within the right greater than left arnold radiata and left parietal periventricular white matter Cerebral ventricles: Normal. No ventriculomegaly. Bones/joints: Unremarkable. Paranasal sinuses: There is mild ethmoid, sphenoid and maxillary sinus mucosal thickening. Mastoid air cells: Normal as visualized. No mastoid effusion. Orbital cavities: Unremarkable. Soft tissues: Unremarkable. MR/MR head wo con* [id number] IMPRESSION: Scattered punctate infarcts bilaterally, compatible with an embolic etiology.
[2021-12-05 17:08] LABS: Glucose Point of Care 288 mg/dL (70-110)
[2021-12-05] MEDS: sodium chloride 0.9% 1,000 ML 125 ML IV (17:15)
--- NOTE | 2021-12-05 17:15 | PC.NURSE ---
Verbal orders: Dr. Esquivel ordered 500ml fluid bolus for pressure support. Bolus given and MAP increased from 53 to current MAP of 98.
--- NOTE | 2021-12-05 17:17 | PC.NURSE ---
Stroke alert: Patient IV infiltrated and this nurse unable to obtain IV. Second RN consulted for ultrasound IV and at that time it was noted that patient was no longer oriented to date and time and a left sided facial droop was noted. Dr. Esquivel called and orders for STAT head CT obtained. Stroke alert called. Stroke protocol followed.
--- NOTE | 2021-12-05 17:27 | W.PM.EVENTAC ---
Event Note Event Note: Stroke code Event Notes Attestations Time Spent in Patient Care: Got a call from nurse stating that it seems patient has a left-sided facial droop. As per the nurse taking care of the patient she first noticed it at around 3 PM. Patient has had labile blood pressures during the day. Was admitted yesterday being hypotensive requiring esmolol drip. Today morning on oral medications blood pressure had remained stable but did have 1 episode when his mean arterial pressure brought down to 63 mmHg when his oral antihypertensives were withheld and he was given a bolus of 500 cc of normal saline. Currently blood pressure 150/70 mmHg, pulse 72 bpm. On examination patient is sitting up in bed, sleeping but wakes up to verbal cue. He is able to answer questions appropriately with minimal slurred speech. Patient has had slurred speech on and off since morning. Has minimal left-sided facial droop. Tongue deviated slightly to the right. Pupils bilaterally equal reactive. Power all 4 limbs 5 x 5. No visual field defects. Plan: Stat CT head. Monitor blood pressures. Neurological evaluation. Care discussed in detail with Dr. Ovalle. She suggests given patient's NIH score of 1 he is not a candidate for tPA. MRI would not be beneficial as it would not change the treatment plan. CTA head and neck could not be done as patient is in KARI and oliguric. Care discussed in detail with patient's family. They would want an MRI if possible. MRI stat without contrast ordered. New with aspirin, statin. Echocardiogram, carotid Dopplers. Permissible hypertension.
--- NOTE | 2021-12-05 17:30 | USCV_ITS ---
Gabrielle Roney Age: 51 Gender: M : 1970 Exam Date: 12/05/2021 21:22 Ordering Phys: Yasir Esquivel MD Technologist: JONNY Exam Location: [facility] [place] Indication: LEFT hemiparesis CVA, LEFT facial droop. DM2. Non- smoker Risk Factors: LEFT hemiparesis CVA, LEFT facial droop. DM2. Non-smoker Previous Vascular Surgery: None Right Brachial BP: / Left Brachial BP: / Right Left Velocity (cm/s) Spectral Plaque Velocity (cm/s) Spectral Plaque Syst/Diast Broadening Syst/Diast Broadening 79.40/ 9.90 None None Prox CCA 144.90/ 21.70 None None 84.90/ 13.20 None None Mid CCA 94.80 / 12.20 None None 102.50/15.40 None None Distal CCA 111.10/ 13.50 None None 99.20/ 20.90 Min None Prox ICA 85.30 / 21.70 Min None 99.00/ 19.20 Min None Mid ICA 51.70 / 10.60 Min None 96.10/ 17.30 Min None Distal ICA 118.60/ 25.80 Min None 118.00 Min None ECA 116.50 Min None 0.97 ICA/CCA 0.82 Antegrade Vertebral Antegrade 57.70/ 12.50 cm/s 41.00/ 9.70 cm/s Tri Subclavian Tri 126.0 69.50 0 CONCLUSIONS Right ICA stenosis <50%. Mild atheromatous plaque right carotid bulb/ICA. Left ICA stenosis <50%. Mild atheromatous plaque left carotid bulb/ICA. Normal antegrade Doppler flow noted in the right vertebral artery. Normal antegrade Doppler flow noted in the left vertebral artery. Rayo Peña MD (Electronically Signed) Final Date: 06 December 2021 17:35 S
--- NOTE | 2021-12-05 18:49 | PC.NURSE ---
Family updated of patients condition. Family member at bedside. Dr. Esquivel notified of MRI complete.
--- NOTE | 2021-12-05 19:12 | P.CONIM_ITS ---
Providers/Reason For Consult Consulting Physician/Specialty*: Dr. Esquivel Reason for Consult*: Multiple emboli/multiple strokes Attending Physician: Yasir Esquivel MD Primary Care Provider: DAVID Pack History of Present Illness History of Present Illness Roney Anthony is a [address] Dubose called me about this 51-year-old man this afternoon because of trace of left facial weakness that the nurses noted about 3 hours before. His exam was otherwise nonfocal and his stroke scale score would have been approximately 2. He had metabolic derangements and sepsis thought to be causing his obtundation. He has had some slurred speech since arrival. He came to the emergency room 12/04/2021 with shortness of breath and nausea and vomiting. He was sent from podiatry clinic because he was tachycardic and his blood pressure and white count were elevated and there was concern for sepsis. He thought his nausea might be from Ozempic as he had taken a shot the morning before. His blood pressure was out of control. He was already on Lasix, hydralazine, lisinopril, nifedipine and spironolactone for his blood pressure but had not been taking those because he was nauseated and vomiting. He has chronic osteomyelitis of the right foot. His temperature was up at 100.6 and his white count was 27.8. His blood pressure was in the 200s. After arrival his temperature went up to 102. His blood pressure came under control on esmolol drip. His blood pressure started falling then and greater concern for sepsis. Because of concern that the patient had some weakness of the left side of the face and was drowsy, MRI was ordered.That study showed punctate infarcts bilaterally consistent with a shower of emboli of cardiac origin. Dr. Dubose asked that I evaluate the patient stat. Echocardiogram is ordered. I have reviewed his MRI scan which shows tiny scattered subcortical infarcts. His CT head was unremarkable. He has diffuse atrophy. His white count today is 27.8. He has acute renal failure with creatinine of 3. CPK elevated 676 with elevated troponin. His blood culture was positive for presumed staph (gram-positive cocci in clusters). Previous wound cultures of his foot have shown Staph aureus. The patient is from [place]. He lives in [place] with his daughter. 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 I could not reach her on her cell phone this afternoon. Review of Systems Narrative: He says he is not in any discomfort currently. He denies chest pain. He denies shortness of breath. He does not have a headache. He says he has felt better before then he does right now. He cannot mention any specific thing that is bothering him. Neuro: Reports: behavioral changes and Slurred speech present (Reported by Dr. Dubose); Denies: headache(s), numbness in extremities, weakness in extremities or dizziness Medications/Allergies Home Medications Medication Instructions Recorded Confirmed Last Taken Type spironolactone 50 mg tablet 50 mg PO DAILY #90 tabs 12/11/20 12/04/21 12/04/21 Rx aspirin 81 mg tablet,delayed 81 mg PO DAILY #30 tabs 02/10/21 12/04/21 12/03/21 Rx release (Adult Aspirin Regimen) clonidine HCl 0.2 mg tablet 0.2 mg PO BID 04/19/21 12/04/21 12/04/21 History hydralazine 100 mg tablet 100 mg PO TID #90 tabs 05/30/21 12/04/21 Unknown Rx nifedipine 60 mg tablet,extended See Rx Instructions .Route 06/11/21 12/04/21 Unknown Rx release .COMPLEX #90 tabs lisinopril 40 mg tablet 40 mg PO BEDTIME #30 tabs 07/31/21 12/04/21 Unknown Rx rosuvastatin 10 mg tablet 10 mg PO DAILY #30 tabs 07/31/21 12/04/21 Unknown Rx semaglutide 1 mg/dose (4 mg/3 mL) See Rx Instructions .Route 11/07/21 12/04/21 12/03/21 Rx subcutaneous pen injector (Ozempic) .COMPLEX #3 mL celecoxib 100 mg capsule 100 mg PO BID 12/04/21 12/04/21 12/04/21 History furosemide 40 mg tablet 40 mg PO BID 12/04/21 12/04/21 Unknown History potassium chloride 20 mEq 20 meq PO DAILY 12/04/21 12/04/21 Unknown History tablet,extended release(part/cryst) Allergies Allergy/AdvReac Type Severity Reaction Status Date / Time Penicillins Allergy Unknown Verified 12/04/21 15:36 Current Medications Generic Name Dose Route Start Last Admin Trade Name Freq PRN Reason Stop Dose Admin Acetaminophen 650 mg 12/04/21 20:03 12/05/21 04:20 Acetaminophen 325 Mg Tablet PO 650 mg Q6H PRN Administration Mild/Mod Pain Or Temp >/= 101 Aspirin 81 mg 12/05/21 09:00 12/05/21 08:50 Aspirin 81 Mg Ec Tablet PO 81 mg DAILY SONIA Administration Atorvastatin Calcium 40 mg 12/05/21 09:00 12/05/21 08:49 Atorvastatin 40 Mg Tablet PO 40 mg DAILY SONIA Administration Docusate Sodium 100 mg 12/05/21 09:00 12/05/21 08:49 Docusate Sodium 100 Mg Capsule PO 100 mg BID SONIA Administration Ferrous Gluconate 324 mg 12/05/21 08:00 12/05/21 08:49 Ferrous Gluconate 324 Mg Tablet PO 324 mg BIDWM SONIA Administration Heparin Sodium (Porcine) 5,000 unit 12/04/21 21:00 12/05/21 08:51 Heparin 5,000 Unit/Ml Inj 1 Ml SUBCUT 5,000 unit Q12H SONIA Administration Sodium Chloride 1,000 mls @ 125 mls/hr 12/04/21 18:31 12/05/21 17:15 Sodium Chloride 0.9% IV 125 mls/hr .Q8H SONIA Administration Cefepime HCl 2,000 mg/ Sodium 50 mls @ 100 mls/hr 12/04/21 20:00 12/05/21 10:41 Chloride IV Infused Q12H SONIA Infusion Protocol Vancomycin HCl 1,500 mg/ 250 mls @ 166.667 mls/hr 12/05/21 15:00 12/05/21 16:28 Sodium Chloride IV 166.67 mls/hr Q24H SONIA Administration Insulin Human Lispro 0 unit 12/04/21 21:00 12/05/21 12:37 Insulin Lispro 100 Unit/1 Ml SUBCUT 8 unit WM&BEDTIME SONIA Administration Protocol Nifedipine 60 mg 12/05/21 09:00 12/05/21 08:50 Nifedipine Er (24 Hr) 30 Mg Tablet PO 60 mg DAILY SONIA Administration Pantoprazole Sodium 40 mg 12/04/21 18:31 12/04/21 19:23 Pantoprazole 40 Mg Sdv IVP 40 mg Q24H SONIA Administration PFSH Acute PFSH: Medical History Acute conjunctivitis, right eye Anemia BPH (benign prostatic hyperplasia) Cellulitis Diabetes Diabetes mellitus with polyneuropathy Dyslipidemia Edema Neuropathy Osteomyelitis of toe of right foot Pneumonia due to COVID-19 virus Post-acute COVID-19 syndrome Respiratory failure with hypoxia Saphenous vein clot Sleep apnea Family History Other CAD (coronary artery disease) Hypertension Social History Smoking and tobacco status: never smoked Vitals/I&O/Wt Last Vital Signs Temp 98.1 F 12/05/21 16:00 Pulse 72 12/05/21 16:00 Resp 19 H 12/05/21 16:00 BP 150/71 12/05/21 16:00 Pulse Ox 93 12/05/21 16:00 O2 Del Method 12/05/21 16:00 O2 Flow Rate 1 12/05/21 16:00 FiO2 35 12/05/21 09:23 12/05/21 12/05/21 12/05/21 06:59 14:59 22:59 Intake Total 1260 / 1510.00 1498.667 / 1498.667 756.25 / 2254.917 Output Total 250 / 250 Balance 1010 / 1260.00 1498.667 / 1498.667 756.25 / 2254.917 Weight last 48 hrs Weight 291 lb 9.6 oz Weight 291 lb 11.2 oz Weight 280 lb Physical Exam Narrative: General: Morbidly obese young man lying quietly in the ICU bed. He was immediately alert. Mental status exam: He knew the month and the year but could not tell me the date. There is a long latency to answers. He has a soft [facility] accent but does not seem dysarthric currently. He follows simple and complex commands. He seems slightly distracted. Cranial nerves: Visual adams full to confrontation. PERRL. Funduscopic exam reveals sharp optic disks. No papilledema. EOMs full without nystagmus. PERR L. Facial movements symmetric at rest and with grimace. Tongue midline in the mouth. Motor: No drift of the extended arms but he has myoclonic jerks, low amplitude in both upper extremities. He may have asterixis as well. Lower extremity strength good as he is able to keep each leg elevated for count of 5. He has bilateral lower extremity edema. Sensation intact to touch in all 4 extremities. Deep tendon reflexes hypoactive throughout. Plantar response neither flexor nor extensor. Coordination he has the myoclonic tremor in both upper extremities with arm extension when his eyes are closed. No spontaneous myoclonus at rest. No specific cerebellar signs. HEENT: He has a plethoric complexion and appears flushed. He has a short thick neck. Chest: Clear to auscultation. Cardiovascular: I do not hear a murmur. Regular rate and rhythm. Extremities: The right foot is deformed and swollen. He has cellulitis in the skin. CT scan of the head performed this afternoon was unremarkable. MRI of the brain performed this afternoon shows tiny punctate ischemic lesions in the subcortical region bilaterally consistent with multiple emboli. Urinary Catheter Management: Díaz: Cath Placed During This Visit: yes Reason for Continuing Indwelling Catheter: Accurate Measurement of Urinary Output in Critically Ill Patients Urinary Catheter Date of Insertion: 12/05/21 Urinary Catheter Time of Insertion: 01:38 Data : 12/05/21 01:54 12/05/21 01:54 Micro: Microbiology 12/04/21 20:41 Blood Culture - Preliminary Blood 12/05/21 03:50 Bacterial Antigens - Final Urine Kidney 12/05/21 03:50 Legionella Urinary Antigen - Final Urine,Clean Catch 12/04/21 20:41 Blood Culture - Preliminary Blood SPECIMEN COLLECTED A&P Assessment and plan (1) Acute ischemic multifocal multiple vascular territories stroke: 51-year-old man with severe diabetes and hypertension with chronic osteomyelitis of the right foot that has been under fairly good control with frequent monitoring by podiatry now presents with cellulitis in the right foot, gram- positive bacteremia and signs of sepsis including oliguric renal failure, elevated white count, hypotension. He has multiple emboli in the brain with multiple distributions consistent with cardiac origin and we must presume that he has bacterial endocarditis from Staphylococcus. Procedure note: Lumbar puncture was attempted in lateral decubitus position. The patient really could not be in a decubitus position and in fact he was more extended then he was flexed. I did not attempt to flex his trunk as I did not think he would tolerate it. I made 1 puncture at L3-4 and did not access the subarachnoid space. His blood pressure at that point fell to 82 systolic and the procedure was aborted. I think we should assume that he has septic emboli in multiple vascular distributions. Anticoagulation is contraindicated for the danger of causing bland emboli to become hemorrhagic. His prognosis is guarded because of the profundity of his illness. Currently he appears neurologically intact except he is mildly encephalopathic which could be from his sepsis rather than from his infarcts, as his infarcts are tiny. 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 Dubose is covering MACH[employer] OPER[employer] ST[employer]ER with his antibiotics. Status: Acute (2) Staphylococcal sepsis: Status: Acute (3) Diabetic peripheral neuropathy associated with type 2 diabetes mellitus: Status: Acute (4) Acute kidney injury: Status: Acute (5) Cellulitis of foot, right: Status: Acute (6) Obesity (BMI 30-39.9): Status: Acute Consult Attestations Medical Necessity Statement: Acute profound multisystem illness Critical Care Time: Critical Care Time (min): 75 Procedures Lumbar Puncture Patient position: left lateral decubitus Skin prep: Povidone-Iodine 1% Spinal needle gauge: 20G Interspace used: L3-L4 Additional comments: Procedure aborted. Blood pressure 82 systolic. 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
--- NOTE | 2021-12-05 19:15 | USCV_ITS ---
Gabrielle Roney Age: 51 Gender: M : 1970 Exam Date: 12/05/2021 21:56 Ordering Phys: Yasir Esquivel MD Technologist: JONNY Exam Location: [facility] – [place], [place] Indication: LEFT hemiparesis CVA, LEFT facial droop, confusion, DM2, Non-smoker. BP: 150 / 71 HR: 72 Rhythm: Sinus Technical Quality: Adequate with [employer] MEASUREMENTS (Male / Female) Normal Values 2D ECHO LV Diastolic Diameter PLAX 4.4 cm 4.2 - 5.9 / 3.9 - 5.3 cm LV Systolic Diameter PLAX 3.1 cm IVS Diastolic Thickness 2.0 cm 0.6 - 1.0 / 0.6 - 0.9 cm IVS Systolic Thickness 2.2 cm LVPW Diastolic Thickness 1.8 cm 0.6 - 1.0 / 0.6 - 0.9 cm LVPW Systolic Thickness 2.2 cm LVOT Diameter 2.2 cm LV Ejection Fraction 2D Teich 56.1 % LV Ejection Fraction MOD 2C 54.4 % LV Ejection Fraction 2C AL 56.1 % LA Diameter 4.0 cm LA Width 5.1 cm LA Height 6.2 cm RA Width 3.5 cm RA Height 4.4 cm Aorta at Sinotubular Diameter 2.9 cm IVC Diameter 2.2 cm M-MODE Aortic Annulus Diameter 3.2 cm LA Ao Ratio MM 1.4 MV E Point Septal Separation 0.4 cm DOPPLER AV Peak Velocity 140.0 cm/s LVOT Peak Velocity 124.0 cm/s AV Area Cont Eq vti 2.9 cm squared AV Area Cont Eq pk 3.4 cm squared MV Area PHT 3.7 cm squared Mitral E to A Ratio 1.0 MV E' Velocity 53.5 cm/s Mitral E to MV E' Ratio 10.2 Mitral E to LV E' Lateral Ratio 8.2 Mitral E to LV E' Septal Ratio 13.8 TV Peak E Velocity 57.0 cm/s PV Peak Velocity 130.0 cm/s RV Acceleration Time 0.1 s RV Ejection Time 0.4 s RV AcT/ET 0.2 FINDINGS Left Ventricle Normal left ventricular size and systolic function, EF 57 %. Moderate left ventricular hypertrophy. Grade II/IV diastolic dysfunction, moderately elevated filling pressures. Right Ventricle The right ventricle is normal in size and function. Right Atrium The right atrium is normal in size. Left Atrium Mildly increased left atrial size. Mitral Valve Thickened mitral valve. Trace mitral valve regurgitation. Aortic Valve Thickened aortic valve. Trace aortic valve regurgitation. Tricuspid Valve No gross abnormalities noted Pulmonic Valve Pulmonic valve not well visualized. Pericardium No pericardial effusion. Aorta Normal aortic annulus size. IVC Inferior vena cava not visualized. CONCLUSIONS Normal left ventricular size and systolic function, EF 57 %. Moderate left ventricular hypertrophy. Grade II/IV diastolic dysfunction, moderately elevated filling pressures. Mildly increased left atrial size. Thickened mitral valve. Trace mitral valve regurgitation. Thickened aortic valve. Trace aortic valve regurgitation. Echo contrast was used for endocardial delineation. There is no pericardial effusion. There are no intracardiac masses. Comparison with the previous study is difficult because of the difference in the technical quality. Dr Jennifer Harp MD [facility] (Electronically Signed) Final Date: 06 December 2021 19:40 S
--- NOTE | 2021-12-05 20:01 | PC.NURSE ---
Covid in house PCR re-ordered and personally delivered to Lab by this nurse.
[2021-12-05] MEDS: pantoprazole 40 mg SDV IVP (20:02)
[2021-12-05] MEDS: acetaminophen 1,000 MG/100 ML PIGGYBACK 400 MG IV (20:03)
--- NOTE | 2021-12-05 20:40 | PC.NURSE ---
Physician Communication At 1935, Dr. Ovalle at patient bedside. Orders received to gather supplies for lumbar puncture and 4 ml of 1% lidocaine for injection. Supplies gathered. Patient turned on side for procedure. Blood pressure decreased to 82 systolic; procedure stopped by Dr. Ovalle. No further orders received. At 2030, BP 123/65. All other vitals stable.
--- NOTE | 2021-12-05 21:00 | PC.NURSE ---
PO Medications Ferrous glucconate, Colace, and insulin due at 1800. Medications not administered by day nurse due to care of patient with stroke symptoms and attempted lumbar punture attempt. Blood glucose checked at 2108 and evening insulin dose administered per JUL.
[2021-12-05 21:30] LABS: Glucose Point of Care 222 mg/dL (70-110)
[2021-12-05 21:30] LABS: Adenovirus Not Detected (NOT DETECT); Chlamydia Pneumoniae Not Detected (NOT DETECT); Coronavirus 229E,HKU1,NL63,OC4 Not Detected (NOT DETECT); Human Metapneumovirus Not Detected (NOT DETECT); Human Rhinovirus/Enterovirus Not Detected (NOT DETECT); Influenza A Not Detected (NOT DETECT); Influenza A H1 Not Detected (NOT DETECT); Influenza A H1-2009 Not Detected (NOT DETECT); Influenza A H3 Not Detected (NOT DETECT); Influenza B Not Detected (NOT DETECT); Mycoplasma Pneumoniae Not Detected (NOT DETECT); Parainfluenza Virus Type 1 Not Detected (NOT DETECT); Parainfluenza Virus Type 2 Not Detected (NOT DETECT); Parainfluenza Virus Type 3 Not Detected (NOT DETECT); Parainfluenza Virus Type 4 Not Detected (NOT DETECT); Respiratory Syncytial Virus A Not Detected (NOT DETECT); Respiratory Syncytial Virus B Not Detected (NOT DETECT); SARS-COV-2 Not Detected (NOT DETECT)
--- NOTE | 2021-12-05 23:30 | PM.CONSULT ---
Providers/Reason For Consult Consulting Physician/Specialty*: Bharti Woodruff MD/Infectious Disease Reason for Consult*: GPC septicemia Requesting Physician: Yasir Esquivel MD Attending Physician: Yasir Esquivel MD Primary Care Provider: DAVID Pack History of Present Illness History of Present Illness Roney Anthony is a 51 year old male with a past medical history as outlined below who presented to the emergency room on December 04, 2021 with chief complaints of tachycardia and hypertension. Patient was at the podiatry clinic where he was noted to be tachycardic to 200 bpm and was therefore directed to the ER. He reported a history of 3 days of fever and chill, excessive nausea and vomiting and generalized malaise. He had also noticed swelling of his right foot. On exam the foot was noted to be swollen erythematous and tender to the touch with changes extending up to the ankle. There were superficial ulcerations over lower part of the leg as well. Of note patient has a history of gangrene and MSSA osteomyelitis in April 2021 involving the right foot, status post I&D with transient placement of a cement spacer until 05/07/2021. He was treated with 6 weeks of IV vancomycin. At that time he also had a nonocclusive thrombus of the right greater saphenous. By September 2021 he did not have any open wounds and overall is foot appeared to be improving until 3 days ago. He was septic upon admission and was admitted for treatment. He has been on treatment with vancomycin and cefepime. He was initially on an esmolol drip and received antihypertensives for management of abnormal vital signs. CT of the foot was performed which showed probable cellulitis in the dorsal foot, without discernible abscess. He has been having persistent fever since admission. On the evening of 12/05 he was noted to have left-sided facial droop for which MRI was performed and showed evidence of septic embolization. Blood cultures in the interim have returned positive for gram-positive cocci in clusters pending further identification. ID is consulted for further antibiotic recommendations. Other current medical comorbidities include KARI and diabetes mellitus. Review of Systems General: Reports: 10 or more systems reviewed and unremarkable except in HPI and below Const: Denies: fever(s), chills or body aches Eyes: Denies: change in vision, blurry vision or photophobia ENMT: Reports: hoarseness; Denies: throat pain, enlarged tonsils, odynophagia or nasal congestion Card: Denies: chest pain, palpitations, irregular heart rhythm, edema, swelling of feet/ankles, lightheadedness, pre-syncope, dyspnea on exertion or orthopnea Resp: Denies: dyspnea, productive cough, non-productive cough, wheezing, stridor, pain on inspiration, change in phlegm color, hemoptysis or chest congestion GI: Denies: abdominal pain, nausea, vomiting, hematemesis, coffee ground emesis, dysphagia, heartburn, diarrhea, constipation, GI cramping, change in stool character, hematochezia or melena : Denies: flank pain, dysuria, urinary frequency, urinary urgency, urinary hesitancy or hematuria Musc: Denies: neck pain, back pain, extremity pain, joint swelling, joint warmth or deformity Neuro: Denies: headache(s), numbness in extremities, weakness in extremities, sensory changes, difficulty walking, frequent falls, dizziness, vertigo, behavioral changes, Slurred speech present or seizure-like activity Psych: Denies: anxiety, depression, suicidal ideation or homicidal ideation Endo: Denies: polyuria, polydipsia, tired all the time, cold intolerance or hot flashes Bowen/Lymph: Denies: easy bruising or easy bleeding Medications/Allergies Home Medications Medication Instructions Recorded Confirmed Last Taken Type spironolactone 50 mg tablet 50 mg PO DAILY #90 tabs 12/11/20 12/04/21 12/04/21 Rx aspirin 81 mg tablet,delayed 81 mg PO DAILY #30 tabs 02/10/21 12/04/21 12/03/21 Rx release (Adult Aspirin Regimen) clonidine HCl 0.2 mg tablet 0.2 mg PO BID 04/19/21 12/04/21 12/04/21 History hydralazine 100 mg tablet 100 mg PO TID #90 tabs 05/30/21 12/04/21 Unknown Rx nifedipine 60 mg tablet,extended See Rx Instructions .Route 06/11/21 12/04/21 Unknown Rx release .COMPLEX #90 tabs lisinopril 40 mg tablet 40 mg PO BEDTIME #30 tabs 07/31/21 12/04/21 Unknown Rx rosuvastatin 10 mg tablet 10 mg PO DAILY #30 tabs 07/31/21 12/04/21 Unknown Rx semaglutide 1 mg/dose (4 mg/3 mL) See Rx Instructions .Route 11/07/21 12/04/21 12/03/21 Rx subcutaneous pen injector (Ozempic) .COMPLEX #3 mL celecoxib 100 mg capsule 100 mg PO BID 12/04/21 12/04/21 12/04/21 History furosemide 40 mg tablet 40 mg PO BID 12/04/21 12/04/21 Unknown History potassium chloride 20 mEq 20 meq PO DAILY 12/04/21 12/04/21 Unknown History tablet,extended release(part/cryst) Allergies Allergy/AdvReac Type Severity Reaction Status Date / Time Penicillins Allergy Unknown Verified 12/04/21 15:36 Current Medications Generic Name Dose Route Start Last Admin Trade Name Freq PRN Reason Stop Dose Admin Acetaminophen 650 mg 12/04/21 20:03 12/06/21 08:51 Acetaminophen 325 Mg Tablet PO 650 mg Q6H PRN Administration Mild/Mod Pain Or Temp >/= 101 Aspirin 81 mg 12/05/21 09:00 12/07/21 09:09 Aspirin 81 Mg Ec Tablet PO 81 mg DAILY SONIA Administration Atorvastatin Calcium 40 mg 12/05/21 09:00 12/07/21 09:09 Atorvastatin 40 Mg Tablet PO 40 mg DAILY SONIA Administration Clonidine HCl 1 patch 12/07/21 09:30 12/07/21 09:25 Clonidine 0.1 Mg/24 Hr Patch TRANSDERMA 1 patch Q7D SONIA Administration Docusate Sodium 100 mg 12/05/21 09:00 12/07/21 09:09 Docusate Sodium 100 Mg Capsule PO 100 mg BID SONIA Administration Ferrous Gluconate 324 mg 12/05/21 08:00 12/07/21 09:09 Ferrous Gluconate 324 Mg Tablet PO 324 mg BIDWM SONIA Administration Heparin Sodium (Porcine) 5,000 unit 12/04/21 21:00 12/07/21 09:20 Heparin 5,000 Unit/Ml Inj 1 Ml SUBCUT 5,000 unit Q12H SONIA Administration Vancomycin HCl 1,500 mg/ 250 mls @ 166.667 mls/hr 12/05/21 15:00 12/06/21 20:00 Sodium Chloride IV Infused Q24H SONIA Infusion Sodium Chloride 1,000 mls @ 75 mls/hr 12/06/21 17:30 12/07/21 09:09 Sodium Chloride 0.9% IV 75 mls/hr .[id number] SONIA Administration Insulin Glargine 10 unit 12/06/21 11:00 12/07/21 06:28 Insulin Glargine 100 Units/1 Ml SUBCUT 10 unit QAM SONIA Administration Insulin Human Lispro 0 unit 12/04/21 21:00 12/07/21 11:47 Insulin Lispro 100 Unit/1 Ml SUBCUT 12 unit WM&BEDTIME SONIA Administration Protocol Nifedipine 60 mg 12/05/21 09:00 12/05/21 08:50 Nifedipine Er (24 Hr) 30 Mg Tablet PO 60 mg DAILY SONIA Administration Pantoprazole Sodium 40 mg 12/04/21 18:31 12/06/21 18:39 Pantoprazole 40 Mg Sdv IVP 40 mg Q24H SONIA Administration PFSH Acute PFSH: Medical History Acute conjunctivitis, right eye Anemia BPH (benign prostatic hyperplasia) Cellulitis Diabetes Diabetes mellitus with polyneuropathy Dyslipidemia Edema Neuropathy Osteomyelitis of toe of right foot Pneumonia due to COVID-19 virus Post-acute COVID-19 syndrome Respiratory failure with hypoxia Saphenous vein clot Sleep apnea Family History Other CAD (coronary artery disease) Hypertension Social History Smoking and tobacco status: never smoked Vitals/I&O/Wt Last Vital Signs Temp 98.8 F 12/07/21 04:00 Pulse 101 H 12/07/21 13:00 Resp 15 12/07/21 13:00 BP 150/91 12/07/21 13:00 Pulse Ox 96 12/07/21 09:00 O2 Del Method 12/07/21 05:00 O2 Flow Rate 4 12/06/21 06:00 FiO2 30 12/07/21 12:00 12/06/21 12/07/21 12/07/21 22:59 06:59 14:59 Intake Total 1590 / 2542.5 622 / 3164.5 1600 / 1600 Output Total 3375 / 3375 2900 / 6275 3750 / 3750 Balance -1785 / -832.5 -2278 / -3110.5 -2150 / -2150 Weight last 48 hrs Weight 136.985 kg Weight 132.268 kg Physical Exam Narrative: General: Ill-appearing male lying in bed, appears flushed. HEENT: PERRLA, pupils bilaterally equal and reactive, pallors not present Chest: Normal vesicular breath sounds, no added sounds, equal good air entry bilaterally CVS: S1-S2 regular, no murmurs, no tachycardia, no gallops, no rubs Abdomen: Soft, nontender, no organomegaly, bowel sounds present Neuro: No focal deficits, no facial deformity, AO x3, power 5/5 in all limbs Extremities: Noted right foot erythema and swelling, concerning for cellulitis. Urinary Catheter Management: Díaz: Cath Placed During This Visit: yes Reason for Continuing Indwelling Catheter: Accurate Measurement of Urinary Output in Critically Ill Patients Urinary Catheter Date of Insertion: 12/05/21 Urinary Catheter Time of Insertion: 01:38 Data : 12/07/21 02:28 12/07/21 17:00 Other Labs: CT/CT foot RT wo con* [id number] IMPRESSION: 1. No definite evidence for active osteomyelitis. 2. Resection of the mid and distal 1st metatarsal. 3. Probable cellulitis and ulceration in the medial great toe and in the region of the 1st metatarsophalangeal joint. 4. Subcutaneous soft tissue edema/cellulitis in the dorsal foot.? No definite discrete abscess identified. CT/CT abdomen pelvis wo con [id number] IMPRESSION: ? 1.? No renal obstruction. 2.? Numerous small indeterminate lymph nodes along the RIGHT common and external iliac chain with the largest measuring 13 mm. These may be reactive but are borderline enlarged. Patient has a history of osteomyelitis of the RIGHT foot which may explain these lymph nodes. 3.? Díaz catheter in a nondistended urinary bladder. 4.? There are a few very minimal sclerotic bone lesions in the pelvis and posterior L4 vertebral body. These may be benign bone islands. CT/CT head wo con* [id number] IMPRESSION: No acute intracranial abnormality demonstrated. ? COMPARISON: CT head wo con* [id number] 12/05/2021 4:56 PM FINDINGS: Image quality is degraded by motion. Brain:? There is no extra-axial collection or intra-axial mass.? Mild diffuse volume loss is out of proportion to what is expected for patient age.? There are scattered foci of T2/FLAIR white matter hyperintensity, nonspecific but typically small-vessel ischemia in this age group.? There are scattered, punctate foci of diffusion restriction within the right greater than left arnold radiata and left parietal periventricular white matter Cerebral ventricles: Normal. No ventriculomegaly. Bones/joints: Unremarkable. Paranasal sinuses:? There is mild ethmoid, sphenoid and maxillary sinus mucosal thickening. Mastoid air cells: Normal as visualized. No mastoid effusion. Orbital cavities: Unremarkable. Soft tissues: Unremarkable. MR/MR head wo con* [id number] IMPRESSION: Scattered punctate infarcts bilaterally, compatible with an embolic etiology. XR/XR chest 1V portable [id number] IMPRESSION: No acute findings. Micro: Microbiology 12/04/21 20:41 Blood Culture - Preliminary Blood gram-positive cocci in clusters 12/06/21 09:18 Blood Culture - Preliminary Blood NEGATIVE TO DATE 12/06/21 09:15 Blood Culture - Preliminary Blood NEGATIVE TO DATE 12/05/21 03:50 Legionella Urinary Antigen - Final Urine,Clean Catch Urine Culture - Final A&P Assessment and plan (1) Septicemia: Status: Acute (2) Embolic stroke: Status: Acute (3) Cellulitis of foot, right: Status: Acute (4) Sepsis: Status: Acute (5) Acute kidney injury: Status: Acute Plan 51-year-old male with a past medical history of MSSA osteomyelitis of the right foot currently admitted with sepsis, gram-positive cocci bacteremia and evidence of right foot cellulitis. #Sepsis as evidenced by leukocytosis, fever, source of infection by way of right foot cellulitis, positive blood cultures, signs of endorgan damage including embolic stroke and acute kidney injury. -Source of gram-positive cocci bacteremia appears to be right foot cellulitis. CT of the foot did not show any evidence of a drainable collection. Chest x-ray is without any gross infiltrates. CT of the abdomen and pelvis without any intra-abdominal abscess or acute process. Patient does not have any indwelling prolonged IV lines. UA not employee's representative of a UTI. Patient currently on treatment with cefepime and vancomycin which is appropriate empiric antimicrobial coverage. Suspected gram-positive cocci may be identified as staph aureus given past history. Will follow final culture results and tailor treatment based on above. Recommend to obtain BECKA given evidence of embolic CVA. Consult Attestations Medical Necessity Statement: Patient critically ill needing ICU level care for gram-positive cocci septicemia need for IV antibiotics and close clinical monitoring. Critical Care Time: The high probability of a clinically significant, sudden or life threatening deterioration of the patient's [infectioussystem(s) required my full and direct attention, intervention and personal management. The critical care time is as shown. This time is in addition to time spent performing any reported procedures but includes the following: [x] Data and vital sign review and interpretation [x] Patient assessment, examination and intervention [x] Documentation [x] Medication orders and management Critical Care Time (min): 40 Coding Level of Care Code Acute Nurse Practitioner Physician Assistant for [facility] Fwd Diagnoses Septicemia A41.9 Embolic stroke I63.9 Cellulitis of foot, right L03.115 Sepsis A41.9 Acute kidney injury N17.9
[2021-12-06] VITALS (45 sets, daily range): BP systolic 88–189; BP diastolic 54–93; PULSE 61–95; RESP 15–27; TEMP 36.8–37.6; O2SAT 88–100; BMI 43.0
[2021-12-06 00:04] LABS: Charge for UA Resulting for Rev
[2021-12-06 00:21] LABS: Urine Appearance Cloudy (CLEAR); Urine Color Dark Yellow (Yellow)
[2021-12-06 00:22] LABS: Add Urine Microscopic? YES; Bilirubin Urine Neg (Negative); Blood Urine 3+ (Negative); Glucose Urine UA Norm (Normal); Ketones Urine 1+ (Negative); Leukocyte Esterase Urine 1+ (Negative); Nitrate Urine Negative (Negative); Protein Urine 1+ (Negative); Specific Gravity, Urine 1.025 (1.005-1.030); Urobilinogen Urine Norm (Negative); pH Urine 5 (5-7)
[2021-12-06] MEDS: sodium chloride 0.9% 1,000 ML 125 ML IV ×2 (03:11→08:53)
[2021-12-06] MEDS: perflutren protein-a microsphr 0.22 mg/mL SDV 3 mL IV (05:41)
[2021-12-06 07:37] LABS: Glucose Point of Care 353 mg/dL (70-110)
--- NOTE | 2021-12-06 07:48 | PC.NURSE ---
Cefepime In JUL, cefepime administration times due at 0800 and 1999. 0800 dose shown to be administered at 0846 while 1999 dose showing administered at 0914. No dose administered in the evening of 12/05/21. Pharmacy notified; order change to pend with morning labs. Dr. Woodruff notified; no new orders received.
[2021-12-06] MEDS: ferrous gluconate 324 mg Tablet PO ×2 (08:51→17:16)
[2021-12-06] MEDS: docusate sodium 100 mg Capsule PO ×2 (08:51→17:16)
[2021-12-06] MEDS: acetaminophen 325 mg Tablet 650 MG PO (08:51)
[2021-12-06] MEDS: heparin 5,000 unit/mL INJ 1 mL 5000 UNIT SUBCUT ×2 (08:52→20:23)
[2021-12-06] MEDS: insulin lispro 100 unit/1 mL SUBCUT ×4 (08:52→20:31)
[2021-12-06] MEDS: atorvastatin 40 mg Tablet PO (08:52)
[2021-12-06] MEDS: aspirin 81 mg EC Tablet PO (08:52)
[2021-12-06] MEDS: cefepime 2,000 MG in sodium chloride 0.9% (plus) 50 ML 100 MG IV ×2 (08:53→19:38)
[2021-12-06 09:45] LABS: Basophils # 0.1 10^3/uL (0.0-0.1); Basophils % 0.3 %; Eosinophils % 0.1 %; Hemoglobin 11.7 g/dL (11.7-16.6); Lymphocytes # 0.8 10^3/uL (0.8-4.8); Lymphocytes % 4.2 %; Mean Corpuscular HGB Conc 31.6 g/dL (30.0-36.0); Mean Corpuscular Hemoglobin 29.1 pg (28.0-34.0); Mean Platelet Volume 10.8 fL (7.4-10.4); Monocytes # 1.4 10^3/uL (0.2-0.9); Monocytes % 7.6 %; Neutrophils # 16.08 10^3/uL (1.8-7.7); Neutrophils % 86.9 %; Nucleated Red Blood Cells % 0 %; Platelet Count 181 10^3/cmm (130-400); Red Blood Count 4.02 10^6/uL (4.1-5.3); Red Cell Distribution Width 14.6 % (12.1-15.1); White Blood Count 18.5 10^3/uL (4.0-10.0)
[2021-12-06 10:30] LABS: Glucose Point of Care 377 mg/dL (70-110)
[2021-12-06 10:31] LABS: Alanine Aminotransferase 28 U/L (0-41); Alkaline Phosphatase 111 IU/L (40-130); Anion Gap 21.5 (5-19); Aspartate Amino Transferase 70 U/L (0-40); Blood Urea Nitrogen 59 mg/dL (6-20); Calcium 8.3 mg/dL (8.5-10.5); Carbon Dioxide 19 mmol/L (22-29); Chloride 94 mmol/L (98-107); Globulin 3.8 g/dL (1.3-4.6); Glomerular Filtration Rate 12.2 mL/min (90-130); Glucose 361 mg/dL (65-115); Osmolality Calculated 301 mOsm/kg (285-295); Potassium 4.5 mmol/L (3.5-5.1); Sodium 130 mmol/L (136-145); Total Bilirubin 0.5 mg/dL (0.15-1.2); Total Protein 6.8 g/dL (6.6-8.7)
--- NOTE | 2021-12-06 12:54 | P.PN_ITS ---
Subjective Subjective: Patient feeling better today, is more conversive. Denies any pain to the right foot. Is having increased swelling and redness to the right lower extremity when he is sitting in his chair with the foot resting on the ground. Vitals/I&O/Wt Last Vital Signs Temp 98.2 F 12/06/21 04:00 Pulse 70 12/06/21 07:30 Resp 23 H 12/06/21 07:30 BP 123/93 12/06/21 06:30 Pulse Ox 98 12/06/21 07:30 O2 Del Method 12/06/21 06:00 O2 Flow Rate 4 12/06/21 06:00 FiO2 30 12/06/21 04:00 12/05/21 12/06/21 12/06/21 22:59 06:59 14:59 Intake Total 1486.25 / 2984.917 2006 / 4990.917 712.5 / 712.5 Output Total 250 / 250 332 / 582 Balance 1236.25 / 2734.917 1674 / 4408.917 712.5 / 712.5 Weight last 48 hrs Weight 291 lb 9.6 oz Weight 291 lb 9.6 oz Weight 291 lb 11.2 oz Weight 280 lb Physical Exam Narrative: Patient is alert and oriented ?3 and in no acute distress.? The following is a focused bilateral lower extremity exam. VASCULAR: Dorsalis pedis palpable +2 bilaterally, posterior tibial arteries palpable +2 bilaterally.? Capillary refill time less than 3 seconds to the distal hallux bilaterally. Calf is supple and nontender proximally and distally. Edema to the right foot and leg. NEUROLOGICAL: Protective sensation intact 0/10 sites, tested with [place] Mist[place] monofilament to bilateral feet. DERMATOLOGICAL: No open wounds at this time to the right lower extremity. Previously site of diabetic foot infection and site of osteomyelitis does not have any soft tissue deficit, no wound or sinus tract or preulcerative lesions. Patient has a stage I stable appearing wound at the distal tuft plantarly at the left hallux without surrounding erythema or purulent drainage, does not probe to deep structures. MUSCULOSKELETAL: No pain with posterior calf squeeze bilaterally. Muscle streng th 5 out of 5 in all three cardinal planes to the right foot and ankle. No soft tissue crepitus on palpation. Urinary Catheter Management: Díaz: Cath Placed During This Visit: yes Reason for Continuing Indwelling Catheter: Accurate Measurement of Urinary Output in Critically Ill Patients Urinary Catheter Date of Insertion: 12/05/21 Urinary Catheter Time of Insertion: 01:38 Data : 12/06/21 09:18 12/06/21 09:18 Micro: Microbiology 12/04/21 20:41 Blood Culture - Preliminary Blood Staphylococcus aureus 12/06/21 09:18 Blood Culture - Preliminary Blood SPECIMEN COLLECTED 12/06/21 09:15 Blood Culture - Preliminary Blood SPECIMEN COLLECTED 12/05/21 03:50 Legionella Urinary Antigen - Final Urine,Clean Catch Urine Culture - Preliminary 12/04/21 20:41 Blood Culture - Preliminary Blood NEGATIVE TO DATE 12/05/21 03:50 Bacterial Antigens - Final Urine Kidney A&P Assessment and plan (1) Cellulitis of foot, right: Status: Acute (2) Chronic osteomyelitis of right foot: Pleasant 51-year-old diabetic male admitted to the ICU for tachycardia and malaise. Presented to podiatry clinic on 12/04/2021, tachycardia on triage and deferred to emergency department and subsequently admitted. He reports a 3 to 4-day history of feeling weak and lack of appetite. Also 3 to 4-day history of increased redness and swelling to his right foot. History of impressive diabetic foot ulcer with osteomyelitis to the great toe and first metatarsal of the right foot that was managed both surgically and medically in 2020 treatments included extensive wound care, hyperbarics, surgical debridement and partial amputation combined with IV vancomycin through PICC line for greater than 6 weeks. Patient eventually went on to heal his wound and return to diabetic shoe gear and decreased to daily activities. Status: Acute (3) Diabetic peripheral neuropathy associated with type 2 diabetes mellitus: Status: Acute Plan Patient is febrile with leukocytosis, ESR 68. X-ray taken 12/04/2021 shows stable postoperative changes with resection of the base of the proximal phalanx and resection of the head of the first metatarsal. Comparison view that was taken 07/10/2021 actually shows improvement of disuse osteopenia with small erosive changes at the distal phalanx has now resolved. Osteotomy site through the base of the proximal phalanx and at the first metatarsal are well corticated without further osseous destruction. Bony fragments within the interspace are well corticated have smooth rounded appearance without resorption or periosteal reaction. CT scan not indicative of osteomyelitis or drainable abscess. Laboratory findings are indicative of potential osteomyelitis acute on chronic at the right foot however his clinical picture he does not have any open wound. Edema, erythema and warmth increases dramatically when patient has right lower extremity in dependent position. Recommending MRI right foot without contrast given current renal function. Plans for 6 weeks of antibiotics on discharge for bacteremia, would obviously be concomitant therapy for underlying acute on chronic osteomyelitis, MRI would be helpful for further evaluation of the foot. Attestations Medical Necessity Statement*: Cellulitis right lower extremity, chronic osteomyelitis right foot Coding Level of Care Code Acute Food And Beverage Assistant for [facility] Diagnoses Cellulitis of foot, right L03.115 Chronic osteomyelitis of right foot M86.671 Diabetic peripheral neuropathy associated with type 2 diabetes mellitus E11.42
[2021-12-06] MEDS: insulin glargine 100 units/1 mL 10 UNIT SUBCUT (13:05)
--- NOTE | 2021-12-06 13:47 | P.CONIM_ITS ---
Providers/Reason For Consult Consulting Physician/Specialty*: sybil villareal md / telenephrology Reason for Consult*: KARI, hyponatremia, met acidosis Requesting Physician: Dr Esquivel Attending Physician: Yasir Esquivel MD Primary Care Provider: DAVID Pack History of Present Illness History of Present Illness Roney Anthony is a 51 year old male h/o IDDM, morbid obesity, htn, COVID-19 in 2020, rt foot osteomyelitis s/p iv vanco in Apr 2021. 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 there he was hypertensive and tachycardic and pt was sent to the ER. On admission he c/o fevers, n/v/rt foot swollen and eryethema. At home pt was on celebrex, lasix, potassium, aldactone, and lisinopril amongst other BP meds. He presented w/ a SBP over 200. In ER started on a esmolol drip and home meds- ROMAN-i was held. Pt was on iv vanco and cefepime. BP normalized. pt remained febrile. He devloped a left sided facial droop on 12/05/21. He was seen by DR Ovalle- [place] [facility]. Pt was found to have a gram + bacteremia. Neuro felt that he had embolic disease to his brain. renal called for rapidly rising cr, and electrolyte abnormalities. His baseline cr is 1.2- 1.4 mg/dl. Admitted on 12/04 w/ a cr of 1.8, on 12/05 cr 3, 12/06 cr of 5. Review of Systems Narrative: weak headache, facial droop, fevers, sob, edema, leg pains, abd distention, confusion. states he is urinating. Medications/Allergies Home Medications Medication Instructions Recorded Confirmed Last Taken Type spironolactone 50 mg tablet 50 mg PO DAILY #90 tabs 12/11/20 12/04/21 12/04/21 Rx aspirin 81 mg tablet,delayed 81 mg PO DAILY #30 tabs 02/10/21 12/04/21 12/03/21 Rx release (Adult Aspirin Regimen) clonidine HCl 0.2 mg tablet 0.2 mg PO BID 04/19/21 12/04/21 12/04/21 History hydralazine 100 mg tablet 100 mg PO TID #90 tabs 05/30/21 12/04/21 Unknown Rx nifedipine 60 mg tablet,extended See Rx Instructions .Route 06/11/21 12/04/21 Unknown Rx release .COMPLEX #90 tabs lisinopril 40 mg tablet 40 mg PO BEDTIME #30 tabs 07/31/21 12/04/21 Unknown Rx rosuvastatin 10 mg tablet 10 mg PO DAILY #30 tabs 07/31/21 12/04/21 Unknown Rx semaglutide 1 mg/dose (4 mg/3 mL) See Rx Instructions .Route 11/07/21 12/04/21 12/03/21 Rx subcutaneous pen injector (Ozempic) .COMPLEX #3 mL celecoxib 100 mg capsule 100 mg PO BID 12/04/21 12/04/21 12/04/21 History furosemide 40 mg tablet 40 mg PO BID 12/04/21 12/04/21 Unknown History potassium chloride 20 mEq 20 meq PO DAILY 12/04/21 12/04/21 Unknown History tablet,extended release(part/cryst) Allergies Allergy/AdvReac Type Severity Reaction Status Date / Time Penicillins Allergy Unknown Verified 12/04/21 15:36 Current Medications Generic Name Dose Route Start Last Admin Trade Name Freq PRN Reason Stop Dose Admin Acetaminophen 650 mg 12/04/21 20:03 12/06/21 08:51 Acetaminophen 325 Mg Tablet PO 650 mg Q6H PRN Administration Mild/Mod Pain Or Temp >/= 101 Aspirin 81 mg 12/05/21 09:00 12/06/21 08:52 Aspirin 81 Mg Ec Tablet PO 81 mg DAILY SONIA Administration Atorvastatin Calcium 40 mg 12/05/21 09:00 12/06/21 08:52 Atorvastatin 40 Mg Tablet PO 40 mg DAILY SONIA Administration Docusate Sodium 100 mg 12/05/21 09:00 12/06/21 08:51 Docusate Sodium 100 Mg Capsule PO 100 mg BID SONIA Administration Ferrous Gluconate 324 mg 12/05/21 08:00 12/06/21 08:51 Ferrous Gluconate 324 Mg Tablet PO 324 mg BIDWM SONIA Administration Heparin Sodium (Porcine) 5,000 unit 12/04/21 21:00 12/06/21 08:52 Heparin 5,000 Unit/Ml Inj 1 Ml SUBCUT 5,000 unit Q12H SONIA Administration Sodium Chloride 1,000 mls @ 125 mls/hr 12/04/21 18:31 12/06/21 08:53 Sodium Chloride 0.9% IV 125 mls/hr .Q8H SONIA Administration Cefepime HCl 2,000 mg/ Sodium 50 mls @ 100 mls/hr 12/04/21 20:00 12/06/21 08:53 Chloride IV 100 mls/hr Q12H SONIA Administration Protocol Vancomycin HCl 1,500 mg/ 250 mls @ 166.667 mls/hr 12/05/21 15:00 12/05/21 19:29 Sodium Chloride IV Infused Q24H SONIA Infusion Insulin Glargine 10 unit 12/06/21 11:00 12/06/21 13:05 Insulin Glargine 100 Units/1 Ml SUBCUT 10 unit QAM SONIA Administration Insulin Human Lispro 0 unit 12/04/21 21:00 12/06/21 11:13 Insulin Lispro 100 Unit/1 Ml SUBCUT 16 unit WM&BEDTIME SONIA Administration Protocol Nifedipine 60 mg 12/05/21 09:00 12/05/21 08:50 Nifedipine Er (24 Hr) 30 Mg Tablet PO 60 mg DAILY SONIA Administration Pantoprazole Sodium 40 mg 12/04/21 18:31 12/05/21 20:02 Pantoprazole 40 Mg Sdv IVP 40 mg Q24H SONIA Administration PFSH Acute PFSH: Medical History Acute conjunctivitis, right eye Anemia BPH (benign prostatic hyperplasia) Cellulitis Diabetes Diabetes mellitus with polyneuropathy Dyslipidemia Edema Neuropathy Osteomyelitis of toe of right foot Pneumonia due to COVID-19 virus Post-acute COVID-19 syndrome Respiratory failure with hypoxia Saphenous vein clot Sleep apnea Family History Other CAD (coronary artery disease) Hypertension Social History Smoking and tobacco status: never smoked Vitals/I&O/Wt Last Vital Signs Temp 98.2 F 12/06/21 04:00 Pulse 70 12/06/21 07:30 Resp 23 H 12/06/21 07:30 BP 123/93 12/06/21 06:30 Pulse Ox 98 12/06/21 07:30 O2 Del Method 12/06/21 06:00 O2 Flow Rate 4 12/06/21 06:00 FiO2 30 12/06/21 04:00 12/05/21 12/06/21 12/06/21 22:59 06:59 14:59 Intake Total 1486.25 / 2984.917 2005 / 4990.917 712.5 / 712.5 Output Total 250 / 250 332 / 582 Balance 1236.25 / 2734.917 1674 / 4408.917 712.5 / 712.5 Weight last 48 hrs Weight 132.268 kg Weight 132.268 kg Weight 132.313 kg Weight 127.006 kg Physical Exam Narrative: obese man SOB in chair vs noted - fevers improving heent- nc/at, eomi, anicteric neck supple lungs crackles heart reg abd soft, nt, +BS ext b/l edema, rt foot warm, tender neur0- facial droop, a,a, ox 2+ Urinary Catheter Management: Díaz: Cath Placed During This Visit: yes Reason for Continuing Indwelling Catheter: Accurate Measurement of Urinary Output in Critically Ill Patients Urinary Catheter Date of Insertion: 12/05/21 Urinary Catheter Time of Insertion: 01:38 Data : 12/06/21 09:18 12/06/21 09:18 Micro: Microbiology 12/04/21 20:41 Blood Culture - Preliminary Blood Staphylococcus aureus 12/06/21 09:18 Blood Culture - Preliminary Blood SPECIMEN COLLECTED 12/06/21 09:15 Blood Culture - Preliminary Blood SPECIMEN COLLECTED 12/05/21 03:50 Legionella Urinary Antigen - Final Urine,Clean Catch Urine Culture - Preliminary 12/04/21 20:41 Blood Culture - Preliminary Blood NEGATIVE TO DATE 12/05/21 03:50 Bacterial Antigens - Final Urine Kidney A&P Assessment and plan (1) Acute kidney injury: 51 yr old man HTN, obesity, IDDM, RT foot cellulitis 1. staph aureus bacteremia- amp and PCN resistant. -wbc and fevers are improving 2. 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 KARI- likely from sepsis- note cr was high on admission and SBP was over 200. -since then, his BP was normalized to low quickly- dropping of BP can cause KARI -pt has septic emboli-possible to kidneys also -pt was on pascal-2 inhibitor, aldactone, roman-i, and diuretics prior to admission- raising his risk for KARI -u/a 4+ gluc, 1+ ketone, 3+ blood, 5-10 rbc- check ck -low ur na noted- however, clinically not prerena; -neg ur eos -perinephric stranding on cT scan is c/w an infection recs- stop aluminum mag d/c ivf -check cxr and give lasix -monitor vanco trough, keep under 19 -allow BP to rise to 140-150/ 80-89 4. while ur ketones+, pH is 7.42/33- primary resp alkalosis and mild met acidosis 5. MRI w/ embolic CVA 6. hyponatremia from KARI- check tsh seen and examine dw/ RN- telehealth visit time spent 55 min informed conset for telehealth obtained from pt and his Status: Acute Consult Attestations Medical Necessity Statement: kari, cellulitis, bacteremia Time Spent in Patient Care: Greater than 35 minutes (>than 50% of time spent in counselling and/or direct pt care on unit) . Coding Level of Care Code Acute Head Of [employer] for Priscilla Jones Diagnoses Acute kidney injury N17.9
--- NOTE | 2021-12-06 14:12 | XR_ITS ---
WS: [id number] Exam: XR chest 1V portable [id number] Date/Time of Exam: 12/06/2021 2:23 PM Reason For Exam: sob, emre, sepsis Comparison 12/04/2021. Findings: The lungs are clear and fully expanded. Costophrenic angles are sharp. No infiltrates. Bronchovascula r relief appears normal. Cardiac silhouette is unremarkable. Bony elements are intact. XR/XR chest 1V portable [id number] IMPRESSION: Unremarkable chest radiograph.
[2021-12-06 14:46] LABS: Complement C3 164 mg/dL (90-180)
[2021-12-06 15:28] LABS: Uric Acid 11.2 mg/dL (3.4-7.0)
--- NOTE | 2021-12-06 16:09 | P.PN_ITS ---
Subjective Subjective: Yesterday in the evening patient was found to have left-sided facial droop after which MRI showed multiple bilateral embolic stroke. Concern for septic embolic stroke. No acute events overnight. Patient has remained hemodynamically stable. Has not required any antihypertensives. Overnight was on BiPAP. Currently he is on 4 L saturating 92%. Continues to remain oliguric. 400 cc of urine in last 24 hours. T-max in last 24 hours 100.7 Fahrenheit. Today morning examination patient is sleeping on examination but wakes up and is able to have complete conversation on verbal stimulus. Vitals/I&O/Wt Last Vital Signs Temp 98.2 F 12/06/21 04:00 Pulse 93 12/06/21 14:30 Resp 24 H 12/06/21 14:30 BP 135/85 12/06/21 12:30 Pulse Ox 92 12/06/21 11:00 O2 Del Method 12/06/21 06:00 O2 Flow Rate 4 12/06/21 06:00 FiO2 30 12/06/21 04:00 12/06/21 12/06/21 12/06/21 06:59 14:59 22:59 Intake Total 2005 / 4990.917 952.5 / 952.5 Output Total 332 / 582 Balance 1674 / 4408.917 952.5 / 952.5 Weight last 48 hrs Weight 132.268 kg Weight 132.268 kg Weight 132.313 kg Weight 127.006 kg Physical Exam Narrative: General: AO x3, no acute distress, ill-appearing, sleeping on examination but wakes up to verbal cue HEENT: PERRLA, pupils bilaterally equal and reactive Chest: Normal vesicular breath sounds, no added sounds, equal good air entry bilaterally CVS: S1-S2 regular, no murmurs, no tachycardia, no gallops, no rubs Abdomen: Soft, nontender, no organomegaly, bowel sounds present Neuro: No focal deficits, no facial deformity, AO x3, power 5/5 in all limbs Extremity: Right foot swollen, erythematous, tense to touch. Changes extending over up to ankle. Superficial ulceration noted over lower part of the leg. Urinary Catheter Management: Díaz: Cath Placed During This Visit: yes Reason for Continuing Indwelling Catheter: Accurate Measurement of Urinary Output in Critically Ill Patients Urinary Catheter Date of Insertion: 12/05/21 Urinary Catheter Time of Insertion: 01:38 Data : 12/06/21 09:18 12/06/21 09:18 Micro: Microbiology 12/04/21 20:41 Blood Culture - Preliminary Blood Staphylococcus aureus 12/06/21 09:18 Blood Culture - Preliminary Blood SPECIMEN COLLECTED 12/06/21 09:15 Blood Culture - Preliminary Blood SPECIMEN COLLECTED 12/05/21 03:50 Legionella Urinary Antigen - Final Urine,Clean Catch Urine Culture - Preliminary 12/04/21 20:41 Blood Culture - Preliminary Blood NEGATIVE TO DATE A&P Assessment and plan (1) Sepsis: Status: Acute (2) Staphylococcal sepsis: Status: Acute (3) Cellulitis of foot, right: Status: Acute (4) Acute ischemic multifocal multiple vascular territories stroke: Status: Acute (5) Acute kidney injury: Status: Acute (6) Oliguria: Status: Acute (7) Accelerated hypertension: Status: Acute (8) Resistant hypertension: Status: Acute (9) CPAP (continuous positive airway pressure) dependence: Status: Acute (10) Diabetes: Status: Chronic Qualifiers: Diabetes mellitus type: type 2 Diabetes mellitus correction insulin use: without design painter use Diabetes mellitus complication status: without complication Qualified Code(s): E11.9 - Type 2 diabetes mellitus without complications (11) Obesity (BMI 30-39.9): Status: Acute Plan 51-year-old with past medical history of uncontrolled hypertension, type 2 diabetes mellitus, chronic osteomyelitis of the foot presents to the ER because he was found to be tachycardiac at podiatry clinic on presentation to the ER had uncontrolled hypertension, tachycardia with elevated white count. Sepsis: Ruled in with tachycardia, leukocytosis, target organ injury with acute kidney injury. Source right foot osteomyelitis versus cellulitis versus possible pyelonephritis. Staph bacteremia. Embolic stroke. Most likely septic. History of MSSA osteomyelitis. Repeat blood cultures sent today morning. We will follow. Continue on vancomycin and cefepime as per creatinine clearance. MRSA swab awaited. Most likely patient will need BECKA. TTE results awaited. Appreciate Dr. Ovalle's recommendation. Will consult ID. Uncontrolled hypertension: History of resistant hypertension: Better controlled. Patient off esmolol drip. Blood pressures dropped to more than 25% overnight on admission. Hold off on any antihypertensives for now. Goal blood pressure less than 140/90 on Hg with mean over 65. Acute kidney injury: Could be secondary to sepsis in setting of ROMAN inhibitor and Lasix at home along with being given enalaprilat in the ER. Creatinine worsening. 5.0 today. Remains oliguric. Urinalysis appreciated. Fena?0.1%?prerenal. CPK elevated Medical reconciliation done for nephrotoxic drugs.Hold off on Lasix and lisinopril. Stop IV fluids. Lasix 40 mg one-time. Monitor BMP daily. Strict input output charting, daily weights, Díaz catheter. Acute ischemic multifocal embolic stroke:-Chances of septic emboli. Antibiotics as above. Awaiting TTE results. Most likely will need BECKA. Carotid ultrasound. Continue with aspirin, statin. Appreciate A1c, lipid panel results. Every neurochecks. Intractable nausea, vomiting: Currently controlled with zofran. [place] less, lipase within normal limits. COVID-19 antigen negative. Check PCR. Stool studies if patient have diarrhea. Type 2 diabetes mellitus: Insulin sliding scale moderate dose protocol. Carb consistent cardiac diet. A1c 7.7. Continue other chronic medications. Analgesia: Tylenol, [place] as needed Glycemic control: Insulin sliding scale moderate dose protocol Nutrition: Renal nondialysis carb consistent diet CODE STATUS: Full code PUD prophylaxis: Protonix DVT prophylaxis: Heparin 5000 every 12 hourly Discharge planning: Discharge home once medically cleared. Continue care at ICU level. Guarded prognosis. Care discussed in detail with patient's sister Ms. Barbosa. All the questions were answered. Attestations Medical Necessity Statement*: Requires further hospitalization for management of Staphylococcus bacteremia, sepsis secondary to possible osteomyelitis, pyelonephritis, septic embolic stroke, acute kidney injury Critical Care Time: The high probability of a clinically significant, sudden or life threatening deterioration of the patient's [ID, renal, neurological, GI] system(s) required my full and direct attention, intervention and personal management. The critical care time is as shown. This time is in addition to time spent performing any reported procedures but includes the following: [x] Data and vital sign review and interpretation [x] Patient assessment, examination and intervention [x] Documentation [x] Medication orders and management Critical Care Time (min): 90 Coding Level of Care Code Acute Ring Attacher for [facility] Fwd Diagnoses Sepsis A41.9 Staphylococcal sepsis A41.2 Cellulitis of foot, right L03.115 Acute ischemic multifocal multiple vascular territories stroke I63.89 Acute kidney injury N17.9 Oliguria R34 Accelerated hypertension I10 Resistant hypertension I10 CPAP (continuous positive airway pressure) dependence Z99.89 Diabetes E11.9 Diabetes mellitus type: type 2 Diabetes mellitus design painter insulin use: without correction use Diabetes mellitus complication status: without complication Obesity (BMI 30-39.9) E66.9
[2021-12-06 16:42] LABS: Alanine Aminotransferase 39 U/L (0-41); Alkaline Phosphatase 156 IU/L (40-130); Anion Gap 20.9 (5-19); Aspartate Amino Transferase 80 U/L (0-40); Blood Urea Nitrogen 59 mg/dL (6-20); Calcium 8.7 mg/dL (8.5-10.5); Carbon Dioxide 20 mmol/L (22-29); Chloride 97 mmol/L (98-107); Globulin 4.4 g/dL (1.3-4.6); Glomerular Filtration Rate 12.2 mL/min (90-130); Glucose 265 mg/dL (65-115); Osmolality Calculated 302 mOsm/kg (285-295); Potassium 4.9 mmol/L (3.5-5.1); Sodium 133 mmol/L (136-145); Total Bilirubin 0.5 mg/dL (0.15-1.2); Total Protein 7.4 g/dL (6.6-8.7)
[2021-12-06 17:00] LABS: Hepatitis C Virus Antibody Non-Reactive (Nonreactive)
[2021-12-06] MEDS: FUROsemide 10 mg/mL SDV 4mL 40 MG IVP (17:16)
[2021-12-06 17:18] LABS: Creatine Phosphokinase 4314 U/L (39-308)
[2021-12-06 17:19] LABS: Vancomycin Trough 16.9 ug/mL (10-15)
[2021-12-06 17:23] LABS: Glucose Point of Care 240 mg/dL (70-110)
[2021-12-06 17:44] LABS: Glucose Point of Care 251 mg/dL (70-110)
[2021-12-06] MEDS: sodium chloride 0.9% 1,000 ML 75 ML IV (18:09)
[2021-12-06] MEDS: pantoprazole 40 mg SDV IVP (18:39)
--- NOTE | 2021-12-06 19:31 | PC.NURSE ---
Bedside Report completed with FÉLIX Lujan.
[2021-12-06 20:41] LABS: Glucose Point of Care 249 mg/dL (70-110)
--- NOTE | 2021-12-06 23:00 | PC.NURSE ---
Blood Pressure Patient's systolic blood pressure ranging from 148-169 with a recent blood pressure of 169/87. Dr. Woodruff notified; no new orders received. To notify if systolic becomes >180.
[2021-12-07] VITALS (49 sets, daily range): BP systolic 145–188; BP diastolic 73–101; PULSE 72–127; RESP 12–27; TEMP 37.1–39.1; O2SAT 89–99; BMI 44.6
[2021-12-07 03:02] LABS: Basophils % 0.1 %; Eosinophils # 0.1 10^3/uL (0.0-0.8); Eosinophils % 0.3 %; Hematocrit 34.9 % (42.0-52.0); Hemoglobin 11.3 g/dL (11.7-16.6); Lymphocytes # 1.1 10^3/uL (0.8-4.8); Mean Corpuscular HGB Conc 32.4 g/dL (30.0-36.0); Mean Corpuscular Volume 89.5 fl (80-94); Mean Platelet Volume 10.8 fL (7.4-10.4); Monocytes # 1.3 10^3/uL (0.2-0.9); Monocytes % 8.5 %; Neutrophils # 12.66 10^3/uL (1.8-7.7); Neutrophils % 83.6 %; Nucleated Red Blood Cells % 0 %; Platelet Count 181 10^3/cmm (130-400); Red Cell Distribution Width 14.1 % (12.1-15.1); White Blood Count 15.2 10^3/uL (4.0-10.0)
[2021-12-07 03:33] LABS: Alanine Aminotransferase 38 U/L (0-41); Albumin Level 2.8 g/dL (3.5-5.2); Alkaline Phosphatase 119 IU/L (40-130); Aspartate Amino Transferase 60 U/L (0-40); Blood Urea Nitrogen 59 mg/dL (6-20); Calcium 8.6 mg/dL (8.5-10.5); Carbon Dioxide 19 mmol/L (22-29); Chloride 99 mmol/L (98-107); Globulin 3.6 g/dL (1.3-4.6); Glomerular Filtration Rate 14.2 mL/min (90-130); Glucose 208 mg/dL (65-115); Magnesium 1.8 mg/dL (1.7-2.3); Osmolality Calculated 301 mOsm/kg (285-295); Sodium 134 mmol/L (136-145); Total Bilirubin 0.4 mg/dL (0.15-1.2); Total Protein 6.4 g/dL (6.6-8.7)
[2021-12-07 05:11] LABS: 25 Hydroxy Vitamin D 17 ng/mL (30-100)
[2021-12-07] MEDS: insulin glargine 100 units/1 mL 10 UNIT SUBCUT (06:28)
[2021-12-07 06:37] LABS: Glucose Point of Care 226 mg/dL (70-110)
--- NOTE | 2021-12-07 06:58 | PM.PN ---
Subjective Subjective: urinating. weak in bed, lethargic. Medications: Reviewed: Yes Medication Review Details: Current Medications Acetaminophen (Acetaminophen 325 Mg Tablet) 650 mg PO Q6H PRN PRN Reason: Mild/Mod Pain Or Temp >/= 101 Last Admin: 12/06/21 08:51 Dose: 650 mg Aspirin (Aspirin 81 Mg Ec Tablet) 81 mg PO DAILY [facility] Last Admin: 12/06/21 08:52 Dose: 81 mg Atorvastatin Calcium (Atorvastatin 40 Mg Tablet) 40 mg PO DAILY [facility] Last Admin: 12/06/21 08:52 Dose: 40 mg Calcium Carbonate (Calcium Carbonate 500 Mg Chew Tablet) 1,000 mg PO Q4H PRN PRN Reason: DYSPEPSI Dextrose (Dextrose 50% Syringe 50 Ml) 25 ml IVP ONCE PRN; Protocol PRN Reason: hypoglycemia protocol Dextrose (Dextrose 50% Syringe 50 Ml) 50 ml IVP PRN PRN; Protocol PRN Reason: hypoglycemia protocol Docusate Sodium (Docusate Sodium 100 Mg Capsule) 100 mg PO BID [facility] Last Admin: 12/06/21 17:16 Dose: 100 mg Ferrous Gluconate (Ferrous Gluconate 324 Mg Tablet) 324 mg PO BIDWM [facility] Last Admin: 12/06/21 17:16 Dose: 324 mg Glucagon (Glucagon 1 Mg/Ml Inj 1 Ml) 1 mg IM ONCE PRN; Protocol PRN Reason: Adult Acute Hypoglycemia Prot. Heparin Sodium (Porcine) (Heparin 5,000 Unit/Ml Inj 1 Ml) 5,000 unit SUBCUT Q12H [facility] Last Admin: 12/06/21 20:23 Dose: 5,000 unit Hydralazine HCl (Hydralazine 25 Mg Tablet) 25 mg PO TID [facility] Dextrose (D5w) 500 mls @ 100 mls/hr IV ONCE PRN; Protocol PRN Reason: Adult Acute Hypoglycemia Prot Vancomycin HCl 1,500 mg/ (Sodium Chloride) 250 mls @ 166.667 mls/hr IV Q24H [facility] Last Infusion: 12/06/21 20:00 Dose: Infused Sodium Chloride (Sodium Chloride 0.9%) 1,000 mls @ 75 mls/hr IV .[id number] [facility] Last Admin: 12/06/21 18:09 Dose: 75 mls/hr Cefepime HCl 2,000 mg/ Sodium (Chloride) 50 mls @ 100 mls/hr IV Q24H SONIA; Protocol Insulin Glargine (Insulin Glargine 100 Units/1 Ml) 10 unit SUBCUT QAM SONIA Last Admin: 12/07/21 06:28 Dose: 10 unit Insulin Human Lispro (Insulin Lispro 100 Unit/1 Ml) 0 unit SUBCUT WM&BEDTIME [facility]; Protocol Last Admin: 12/06/21 20:31 Dose: 10 unit Magnesium Hydroxide (Magnesium Hydroxide 30 Ml Udc) 30 ml PO DAILY PRN; Protocol PRN Reason: Constipation (see protocol) Morphine Sulfate (Morphine 4 Mg/Ml Sdv 1 Ml) 2 mg IVP Q4H PRN PRN Reason: SEVERE PAIN Nifedipine (Nifedipine Er (24 Hr) 30 Mg Tablet) 60 mg PO DAILY [facility] Last Admin: 12/05/21 08:50 Dose: 60 mg Ondansetron HCl (Ondansetron 2 Mg/Ml Sdv 2 Ml) 4 mg IVP Q6H PRN PRN Reason: NAUSEA AND VOMITING Pantoprazole Sodium (Pantoprazole 40 Mg Sdv) 40 mg IVP Q24H [facility] Last Admin: 12/06/21 18:39 Dose: 40 mg Vitals/I&O/Wt Last Vital Signs Temp 98.8 F 12/07/21 04:00 Pulse 72 12/07/21 06:00 Resp 22 H 12/07/21 05:00 BP 149/84 12/07/21 05:00 Pulse Ox 96 12/07/21 06:00 O2 Del Method 12/07/21 05:00 O2 Flow Rate 4 12/06/21 06:00 FiO2 30 12/07/21 06:00 12/06/21 12/06/21 12/07/21 14:59 22:59 06:59 Intake Total 952.5 / 952.5 1590 / 2542.5 622 / 3164.5 Output Total 3375 / 3375 2900 / 6275 Balance 952.5 / 952.5 -1785 / -832.5 -2278 / -3110.5 Weight last 48 hrs Weight 132.268 kg Physical Exam Narrative: comfortable in bed on BiPAP vs noted - fevers improving heent- nc/at, eomi, anicteric neck supple lungs clear b/l heart reg abd soft, nt, +BS ext b/l edema, rt foot warm, tender neuro- a,a, ox 2+ Urinary Catheter Management: Díaz: Cath Placed During This Visit: yes Reason for Continuing Indwelling Catheter: Accurate Measurement of Urinary Output in Critically Ill Patients Urinary Catheter Date of Insertion: 12/05/21 Urinary Catheter Time of Insertion: 01:38 Data : 12/07/21 02:28 12/07/21 02:28 Micro: Microbiology 12/04/21 20:41 Blood Culture - Preliminary Blood Staphylococcus aureus 12/06/21 09:18 Blood Culture - Preliminary Blood SPECIMEN COLLECTED 12/06/21 09:15 Blood Culture - Preliminary Blood SPECIMEN COLLECTED 12/05/21 03:50 Legionella Urinary Antigen - Final Urine,Clean Catch Urine Culture - Preliminary A&P Assessment and plan (1) Acute kidney injury: 51 yr old man HTN, obesity, IDDM, RT foot cellulitis 1. staph aureus bacteremia- amp and PCN resistant. -wbc and fevers are improving 2. 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 KARI- likely from sepsis- note cr was high on admission and SBP was over 200. - his BP was normalized to low quickly- dropping of BP can cause KARI -pt has septic emboli-possible that he also has septic emboli to his kidneys -pt was on pascal-2 inhibitor, aldactone, mariana-i, and diuretics prior to admission- raising his risk for KARI -u/a 4+ gluc, 1+ ketone, 3+ blood, 5-10 rbc- check ck -low ur na noted- however, clinically not prerena; -neg ur eos -perinephric stranding on cT scan is c/w an infection -cr now starting to improve and good uop -can d/c ivf -monitor vanco trough, keep under 19 -allow BP to rise to 140-150/ 80-89 -ck of 4314 - is unlikely to cause KARI-but will monitor bid 4. while ur ketones+, pH is 7.42/33- primary resp alkalosis and mild met acidosis 5. MRI w/ embolic CVA 6. hyponatremia from KARI- na stable -normal tsh 7. replace vit d 8. dm care per medicine. hgba1c is 7.7 renal dose meds seen and examined w/ RN- telehealth visit time spent 30 min Status: Acute Plan septic emboli. abx per medicine kari monitor for renal recovery Attestations Medical Necessity Statement*: kari, septic emboli Time Spent in Patient Care: 16 - 35 minutes (>than 50% of time spent in counselling and/or direct pt care on unit). Coding Level of Care Code Acute Supervisor [employer] for Priscilla Jones Diagnoses Acute kidney injury N17.9
[2021-12-07 07:48] LABS: Glucose Point of Care 230 mg/dL (70-110)
[2021-12-07] MEDS: docusate sodium 100 mg Capsule PO ×2 (09:09→17:04)
[2021-12-07] MEDS: atorvastatin 40 mg Tablet PO (09:09)
[2021-12-07] MEDS: insulin lispro 100 unit/1 mL SUBCUT ×4 (09:09→20:26)
[2021-12-07] MEDS: sodium chloride 0.9% 1,000 ML 75 ML IV (09:09)
[2021-12-07] MEDS: ferrous gluconate 324 mg Tablet PO ×2 (09:09→17:04)
[2021-12-07] MEDS: aspirin 81 mg EC Tablet PO (09:09)
[2021-12-07] MEDS: heparin 5,000 unit/mL INJ 1 mL 5000 UNIT SUBCUT ×2 (09:20→20:14)
[2021-12-07] MEDS: cloNIDine 0.1 mg/24 hr Patch 1 PATCH TRANSDERMA (09:25)
--- NOTE | 2021-12-07 09:30 | MR_ITS ---
WS: [id number] INDICATION: RIGHT foot abscess TECHNIQUE: MR of the RIGHT foot without gadolinium enhancement. Axial PD, axial T2, coronal PD, coron al T2, axial T1, sagittal T1, sagittal STIR FINDINGS: Postoperative changes resection of the mid and distal 1st metatarsal. Diffuse soft tissue edema invol ving the dorsal midfoot and forefoot soft tissues. Achilles enthesophyte. No evidence of drainable ab scess about the 1st metatarsal or 1st MTP joint. Diffuse lobulated fluid collection about the dorsal aspect of the midfoot extending laterally about t he 5th metatarsal. Lobulated septated fluid collection extends along the intertarsal soft tissues. Lo bular fluid collection measures approximately 3.8 x 4.6 x 5.1 CM. This appears new or progressed comp ared to December 04, 2021. Findings suspicious for infection with phlegmon or developing abscess. Some th is may represent benign inflammatory fluid. Normal bone marrow signal is maintained in the 2nd through 5th metatarsal shafts. Degenerative change s involving the tarsal bones with reactive edema. Normal talus. Normal calcaneus. Distal Achilles is normal in appearance. Small amount of tenosynovitis along the peroneal tendon sheaths. MR/MR foot RT wo con* [id number] IMPRESSION: 1. Prior postoperative changes partial resection of the mid and distal 1st met atarsal. 2. Diffuse cellulitis with soft tissue edema worse involving the dorsal midfoo t soft tissues overlying the tarsal bones and proximal metatarsals. 3. Lobulated T2 hyperintense fluid collection with septations overlying the do rsal aspect of the midfoot extending laterally. This extends to the dorsal inte rtarsal soft tissues with surrounding cellulitis. Findings suspicious for phleg mon/abscess. Some of this may represent chronic inflammatory fluid. 4. No definite evidence of acute osteomyelitis.
[2021-12-07 09:57] LABS: Creatine Phosphokinase 1618 U/L (39-308)
[2021-12-07 10:18] LABS: Prolactin 6.74 ng/mL (4.0-15.2)
--- NOTE | 2021-12-07 11:10 | PC.NURSE ---
back from mri at this time... placed on monitor up in chair.
[2021-12-07 11:31] LABS: Glucose Point of Care 263 mg/dL (70-110)
--- NOTE | 2021-12-07 12:28 | P.PN_ITS ---
Subjective Subjective: Documents overnight. Patient denies any nausea vomiting, headache. T-max in last 24 hours 100.6 Fahrenheit last night. Urine output getting better. Overall 6 L off urine output documented in last 24 hours. Patient did get 1 dose of IV Lasix yesterday. Blood pressures improving. Systolics going over 160 mmHg. Vitals/I&O/Wt Last Vital Signs Temp 98.8 F 12/07/21 04:00 Pulse 101 H 12/07/21 12:00 Resp 15 12/07/21 12:00 BP 150/91 12/07/21 12:00 Pulse Ox 96 12/07/21 09:00 O2 Del Method 12/07/21 05:00 O2 Flow Rate 4 12/06/21 06:00 FiO2 30 12/07/21 12:00 12/06/21 12/07/21 12/07/21 22:59 06:59 14:59 Intake Total 1590 / 2542.5 622 / 3164.5 1400 / 1400 Output Total 3375 / 3375 2900 / 6275 2750 / 2750 Balance -1785 / -832.5 -2278 / -3110.5 -1350 / -1350 Weight last 48 hrs Weight 136.985 kg Weight 132.268 kg Physical Exam Narrative: General: AO x3, no acute distress, ill-appearing, sleeping on examination but wakes up to verbal cue HEENT: PERRLA, pupils bilaterally equal and reactive Chest: Normal vesicular breath sounds, no added sounds, equal good air entry bilaterally CVS: S1-S2 regular, no murmurs, no tachycardia, no gallops, no rubs Abdomen: Soft, nontender, no organomegaly, bowel sounds present Neuro: No focal deficits, no facial deformity, AO x3, power 5/5 in all limbs Extremity: Right foot swollen, erythematous, tense to touch. Changes extending over up to ankle. Superficial ulceration noted over lower part of the leg. Urinary Catheter Management: Díaz: Cath Placed During This Visit: yes Reason for Continuing Indwelling Catheter: Accurate Measurement of Urinary Output in Critically Ill Patients Urinary Catheter Date of Insertion: 12/05/21 Urinary Catheter Time of Insertion: 01:38 Data : 12/07/21 02:28 12/07/21 02:28 Micro: Microbiology 12/04/21 20:41 Blood Culture - Preliminary Blood Staphylococcus aureus 12/06/21 09:18 Blood Culture - Preliminary Blood NEGATIVE TO DATE 12/06/21 09:15 Blood Culture - Preliminary Blood NEGATIVE TO DATE 12/05/21 03:50 Legionella Urinary Antigen - Final Urine,Clean Catch Urine Culture - Final A&P Assessment and plan (1) Sepsis: Status: Acute (2) Staphylococcal sepsis: Status: Acute (3) Cellulitis of foot, right: Status: Acute (4) Acute ischemic multifocal multiple vascular territories stroke: Status: Acute (5) Acute kidney injury: Status: Acute (6) Oliguria: Status: Acute (7) Accelerated hypertension: Status: Acute (8) Resistant hypertension: Status: Acute (9) CPAP (continuous positive airway pressure) dependence: Status: Acute (10) Diabetes: Status: Chronic Qualifiers: Diabetes mellitus type: type 2 Diabetes mellitus group home insulin use: without group home use Diabetes mellitus complication status: without complication Qualified Code(s): E11.9 - Type 2 diabetes mellitus without complications (11) Obesity (BMI 30-39.9): Status: Acute Plan 51-year-old with past medical history of uncontrolled hypertension, type 2 diabetes mellitus, chronic osteomyelitis of the foot presents to the ER because he was found to be tachycardiac at podiatry clinic on presentation to the ER had uncontrolled hypertension, tachycardia with elevated white count. Sepsis: Ruled in with tachycardia, leukocytosis, target organ injury with acute kidney injury. Source right foot osteomyelitis versus cellulitis versus possible pyelonephritis. MSSA bacteremia Embolic stroke. Most likely septic. History of MSSA osteomyelitis. Continue on vancomycin and cefepime as per creatinine clearance. Follow-up repeat blood cultures. MRI foot suggestive of developing abscess/phlegmon. Negative for osteomyelitis. Echocardiogram results appreciated. Most likely patient will need a BECKA to rule out infective endocarditis. I will likely patient will need after 6 weeks of IV antibiotics. Appreciate Dr. Ovalle's recommendation. Will consult ID. Uncontrolled hypertension: History of resistant hypertension: Better controlled. Patient off esmolol drip. Blood pressures dropped to more than 25% overnight on admission. Blood pressure trending up again. Will start on clonidine 0.1 mg transdermal patch. Goal blood pressure less than 140/90 mmHg with mean over 65. Will add medications as per goal blood pressure. Acute kidney injury: Could be secondary to sepsis in setting of ROMAN inhibitor and Lasix at home along with being given enalaprilat in the ER. Urine output improving. Creatinine improving. Urinalysis appreciated. Fena?0.1%?prerenal. CPK elevated Medical reconciliation done for nephrotoxic drugs.Hold off on Lasix and lisinopril. Continue with normal saline at 75 cc/h. We will monitor urine output during the day and if needed will dose 1 Lasix later in the evening. Repeat BMP in evening. Strict input output charting, daily weights, Díaz catheter. Acute ischemic multifocal embolic stroke:-Chances of septic emboli. Antibiotics as above. Appreciate echocardiogram and carotid ultrasound. Continue with aspirin, statin. Rhabdomyolysis: Check prolactin to rule out subtle seizure. Continue with normal saline at 75 cc/h. Repeat CPK daily. Intractable nausea, vomiting: Currently controlled with zofran. ND less, lipase within normal limits. COVID-19 antigen negative. Check PCR. Stool studies if patient have diarrhea. Type 2 diabetes mellitus: Insulin sliding scale moderate dose protocol. Carb consistent cardiac diet. A1c 7.7. Continue other chronic medications. Analgesia: Tylenol, Bogart as needed Glycemic control: Insulin sliding scale moderate dose protocol Nutrition: Renal nondialysis carb consistent diet CODE STATUS: Full code PUD prophylaxis: Protonix DVT prophylaxis: Heparin 5000 every 12 hourly Discharge planning: Discharge home once medically cleared. Continue care at ICU level. Guarded prognosis. Care discussed in detail with patient's sister Ms. Barbosa. All the questions were answered. 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
--- NOTE | 2021-12-07 13:47 | P.PN_ITS ---
Subjective Subjective: Patient feeling better today, is more conversive. Denies any pain to the right foot. Is having increased swelling and redness to the right lower extremity when he is sitting in his chair with the foot resting on the ground. Vitals/I&O/Wt Last Vital Signs Temp 98.8 F 12/07/21 04:00 Pulse 101 H 12/07/21 13:00 Resp 15 12/07/21 13:00 BP 150/91 12/07/21 13:00 Pulse Ox 96 12/07/21 09:00 O2 Del Method 12/07/21 05:00 O2 Flow Rate 4 12/06/21 06:00 FiO2 30 12/07/21 12:00 12/06/21 12/07/21 12/07/21 22:59 06:59 14:59 Intake Total 1590 / 2542.5 622 / 3164.5 1600 / 1600 Output Total 3375 / 3375 2900 / 6275 3750 / 3750 Balance -1785 / -832.5 -2278 / -3110.5 -2150 / -2150 Weight last 48 hrs Weight 302 lb Weight 291 lb 9.6 oz Physical Exam Narrative: Patient is alert and oriented ?3 and in no acute distress.? The following is a focused bilateral lower extremity exam. VASCULAR: Dorsalis pedis palpable +2 bilaterally, posterior tibial arteries palpable +2 bilaterally.? Capillary refill time less than 3 seconds to the distal hallux bilaterally. Calf is supple and nontender proximally and distally. Edema to the right foot and leg. NEUROLOGICAL: Protective sensation intact 0/10 sites, tested with Willard Misti monofilament to bilateral feet. DERMATOLOGICAL: No open wounds at this time to the right lower extremity. Previously site of diabetic foot infection and site of osteomyelitis does not have any soft tissue deficit, no wound or sinus tract or preulcerative lesions. Patient has a stage I stable appearing wound at the distal tuft plantarly at the left hallux without surrounding erythema or purulent drainage, does not probe to deep structures. MUSCULOSKELETAL: No pain with posterior calf squeeze bilaterally. Muscle st rength 5 out of 5 in all three cardinal planes to the right foot and ankle. No soft tissue crepitus on palpation. Urinary Catheter Management: Díaz: Cath Placed During This Visit: yes Reason for Continuing Indwelling Catheter: Accurate Measurement of Urinary Output in Critically Ill Patients Urinary Catheter Date of Insertion: 12/05/21 Urinary Catheter Time of Insertion: 01:38 Data : 12/07/21 02:28 12/07/21 02:28 Micro: Microbiology 12/04/21 20:41 Blood Culture - Preliminary Blood Staphylococcus aureus 12/06/21 09:18 Blood Culture - Preliminary Blood NEGATIVE TO DATE 12/06/21 09:15 Blood Culture - Preliminary Blood NEGATIVE TO DATE 12/05/21 03:50 Legionella Urinary Antigen - Final Urine,Clean Catch Urine Culture - Final A&P Assessment and plan (1) Cellulitis of foot, right: Status: Acute (2) Chronic osteomyelitis of right foot: Pleasant 51-year-old diabetic male admitted to the ICU for tachycardia and malaise. Presented to podiatry clinic on 12/04/2021, tachycardia on triage and deferred to emergency department and subsequently admitted. He reports a 3 to 4-day history of feeling weak and lack of appetite. Also 3 to 4-day history of increased redness and swelling to his right foot. History of impressive diabetic foot ulcer with osteomyelitis to the great toe and first metatarsal of the right foot that was managed both surgically and medically in 2020 treatments included extensive wound care, hyperbarics, surgical debridement and partial amputation combined with IV vancomycin through PICC line for greater than 6 wee ks. Patient eventually went on to heal his wound and return to diabetic shoe gear and decreased to daily activities. Status: Acute (3) Diabetic peripheral neuropathy associated with type 2 diabetes mellitus: Status: Acute Plan Patient is febrile with leukocytosis, ESR 68. X-ray taken 12/04/2021 shows stable postoperative changes with resection of the base of the proximal phalanx and resection of the head of the first metatarsal. Comparison view that was taken 07/10/2021 actually shows improvement of disuse osteopenia with small erosive changes at the distal phalanx has now resolved. Osteotomy site through the base of the proximal phalanx and at the first metatarsal are well corticated without further osseous destruction. Bony fragments within the interspace are well corticated have smooth rounded appearance without resorption or periosteal reaction. CT scan not indicative of osteomyelitis or drainable abscess. Laboratory findings are indicative of potential osteomyelitis acute on chronic at the right foot however his clinical picture he does not have any open wound. Edema, erythema and warmth increases dramatically when patient has right lower extremity in dependent position. Recommending MRI right foot without contrast given current renal function. Plans for 6 weeks of antibiotics on discharge for bacteremia, would obviously be concomitant therapy for underlying acute on chronic osteomyelitis, MRI would be helpful for further evaluation of the foot. Interim update MRI negative for osteomyelitis. Fluid collection phlegmon versus abscess versus inflammatory fluid. Correlating clinically I have low suspicion for abscess, p atient has extensive edema. Likely represents serous type interstitial fluid secondary to inflammation. Recommending elevating while resting and utilizing lymphedema wrap. Seeing improvement with medical management on empiric antibiotics, recommended continuation of antibiotic therapy at this time along with elevation and compression, no plans for surgical debridement at this time, I believe that there would be more to lose and gain to make an expansive incision putting him at further risk for infection and delayed healing. 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
--- NOTE | 2021-12-07 14:11 | P.PN_ITS ---
Subjective Subjective: Infectious disease progress note. Leukocytosis improving from 26 thousand to 15,000 Creatinine initially worsened from 3-5, trending down at 3.2 today. Continues to be febrile 102F Blood culture negative from December 06. Foot MRI performed today concerning for phlegmonous changes versus developing a bscess. TTE with normal LVEF 57% thickened mitral valve, thickened aortic valve, grade 2 diastolic dysfunction. Medications: Reviewed: Yes Medication Review Details: Current Medications Acetaminophen (Acetaminophen 325 Mg Tablet) 650 mg PO Q6H PRN PRN Reason: Mild/Mod Pain Or Temp >/= 101 Last Admin: 12/06/21 08:51 Dose: 650 mg Aspirin (Aspirin 81 Mg Ec Tablet) 81 mg PO DAILY [facility] Last Admin: 12/06/21 08:52 Dose: 81 mg Atorvastatin Calcium (Atorvastatin 40 Mg Tablet) 40 mg PO DAILY [facility] Last Admin: 12/06/21 08:52 Dose: 40 mg Calcium Carbonate (Calcium Carbonate 500 Mg Chew Tablet) 1,000 mg PO Q4H PRN PRN Reason: DYSPEPSI Dextrose (Dextrose 50% Syringe 50 Ml) 25 ml IVP ONCE PRN; Protocol PRN Reason: hypoglycemia protocol Dextrose (Dextrose 50% Syringe 50 Ml) 50 ml IVP PRN PRN; Protocol PRN Reason: hypoglycemia protocol Docusate Sodium (Docusate Sodium 100 Mg Capsule) 100 mg PO BID [facility] Last Admin: 12/06/21 17:16 Dose: 100 mg Ferrous Gluconate (Ferrous Gluconate 324 Mg Tablet) 324 mg PO BIDWM [facility] Last Admin: 12/06/21 17:16 Dose: 324 mg Glucagon (Glucagon 1 Mg/Ml Inj 1 Ml) 1 mg IM ONCE PRN; Protocol PRN Reason: Adult Acute Hypoglycemia Prot. Heparin Sodium (Porcine) (Heparin 5,000 Unit/Ml Inj 1 Ml) 5,000 unit SUBCUT Q12H [facility] Last Admin: 12/06/21 20:23 Dose: 5,000 unit Hydralazine HCl (Hydralazine 25 Mg Tablet) 25 mg PO TID [facility] Dextrose (D5w) 500 mls @ 100 mls/hr IV ONCE PRN; Protocol PRN Reason: Adult Acute Hypoglycemia Prot Vancomycin HCl 1,500 mg/ (Sodium Chloride) 250 mls @ 166.667 mls/hr IV Q24H [facility] Last Infusion: 12/06/21 20:00 Dose: Infused Sodium Chloride (Sodium Chloride 0.9%) 1,000 mls @ 75 mls/hr IV .[id number] [facility] Last Admin: 12/06/21 18:09 Dose: 75 mls/hr Cefepime HCl 2,000 mg/ Sodium (Chloride) 50 mls @ 100 mls/hr IV Q24H SONIA; Protocol Insulin Glargine (Insulin Glargine 100 Units/1 Ml) 10 unit SUBCUT QAM [facility] Last Admin: 12/07/21 06:28 Dose: 10 unit Insulin Human Lispro (Insulin Lispro 100 Unit/1 Ml) 0 unit SUBCUT WM&BEDTIME SONIA; Protocol Last Admin: 12/06/21 20:31 Dose: 10 unit Magnesium Hydroxide (Magnesium Hydroxide 30 Ml Udc) 30 ml PO DAILY PRN; Protocol PRN Reason: Constipation (see protocol) Morphine Sulfate (Morphine 4 Mg/Ml Sdv 1 Ml) 2 mg IVP Q4H PRN PRN Reason: SEVERE PAIN Nifedipine (Nifedipine Er (24 Hr) 30 Mg Tablet) 60 mg PO DAILY [facility] Last Admin: 12/05/21 08:50 Dose: 60 mg Ondansetron HCl (Ondansetron 2 Mg/Ml Sdv 2 Ml) 4 mg IVP Q6H PRN PRN Reason: NAUSEA AND VOMITING Pantoprazole Sodium (Pantoprazole 40 Mg Sdv) 40 mg IVP Q24H [facility] Last Admin: 12/06/21 18:39 Dose: 40 mg Vitals/I&O/Wt Last Vital Signs Temp 98.8 F 12/07/21 04:00 Pulse 101 H 12/07/21 13:00 Resp 15 12/07/21 13:00 BP 150/91 12/07/21 13:00 Pulse Ox 96 12/07/21 09:00 O2 Del Method 12/07/21 05:00 O2 Flow Rate 4 12/06/21 06:00 FiO2 30 12/07/21 12:00 12/06/21 12/07/21 12/07/21 22:59 06:59 14:59 Intake Total 1590 / 2542.5 622 / 3164.5 1600 / 1600 Output Total 3375 / 3375 2900 / 6275 3750 / 3750 Balance -1785 / -832.5 -2278 / -3110.5 -2150 / -2150 Weight last 48 hrs Weight 136.985 kg Weight 132.268 kg Physical Exam Narrative: General: Alert oriented x3 HEENT: PERRLA, pupils bilaterally equal and reactive, pallors not present Chest: Normal vesicular breath sounds, no added sounds, equal good air entry bilaterally CVS: S1-S2 regular, no murmurs, no tachycardia, no gallops, no rubs Abdomen: Soft, nontender, no organomegaly, bowel sounds present Neuro: No focal deficits, no facial deformity, AO x3, power 5/5 in all limbs Extremities: Right foot cellulitis Urinary Catheter Management: Díaz: Cath Placed During This Visit: yes Reason for Continuing Indwelling Catheter: Accurate Measurement of Urinary Output in Critically Ill Patients Urinary Catheter Date of Insertion: 12/05/21 Urinary Catheter Time of Insertion: 01:38 Data : 12/07/21 02:28 12/07/21 17:00 Micro: Microbiology 12/04/21 20:41 Blood Culture - Preliminary Blood Staphylococcus aureus 12/06/21 09:18 Blood Culture - Preliminary Blood NEGATIVE TO DATE 12/06/21 09:15 Blood Culture - Preliminary Blood NEGATIVE TO DATE 12/05/21 03:50 Legionella Urinary Antigen - Final Urine,Clean Catch Urine Culture - Final Blood Culture Preliminary 12/07/21-0941 1 OF 4 BOTTLES POSITIVE DIRECT GRAM STAIN: GRAM POSITIVE COCCI IN CLUSTERS Organism 1 Staphylococcus aureus Growth IN 1 BOTTLE Gram Stain Charge Charge for Gram Stain CRITICAL RESULT YES/NO: YES CRITICAL CALLED BY: NATALIE TO AND READ BACK BY: WILLIAM DATE: 12/05/21 TIME: 1313 2ND CRITICAL RES YES/NO: YES 2ND CRITICAL CALLED BY: NATALIE 2ND TO AND READ BACK BY: MUNIRA DATE: 12/06/21 2ND CRITICAL TIME: 1240 S aureus M.I.C. RX --------- ------ * Amoxicillin/Clavulanate <=4/2 S * Ampicillin >8 R * Ampicillin/Sulbactam <=8/4 S * Ceftriaxone <=8 S * Ciprofloxacin <=1 S * Clindamycin <=0.5 S * Erythromycin <=0.5 S * Gentamicin <=4 S * Levofloxacin <=1 S * Linezolid 4 S * Oxacillin 0.5 S * Penicillin >8 R * Rifampin <=1 S * Tetracycline <=4 S * Trimethoprim/Sulfamethoxazole <=0.5/9.5 S Vancomycin 2 S Daptomycin 1 S Other data: Radiology Impressions Foot X-Ray 12/04/21 17:04 IMPRESSION: No acute skeletal finding. Foot CT 12/04/21 19:21 IMPRESSION: 1. No definite evidence for active osteomyelitis. 2. Resection of the mid and distal 1st metatarsal. 3. Probable cellulitis and ulceration in the medial great toe and in the region of the 1st metatarsophalangeal joint. 4. Subcutaneous soft tissue edema/cellulitis in the dorsal foot. No definite discrete abscess identified. Abdomen/Pelvis CT 12/05/21 02:39 IMPRESSION: 1. No renal obstruction. 2. Numerous small indeterminate lymph nodes along the RIGHT common and external iliac chain with the largest measuring 13 mm. These may be reactive but are borderline enlarged. Patient has a history of osteomyelitis of the RIGHT foot which may explain these lymph nodes. 3. Díaz catheter in a nondistended urinary bladder. 4. There are a few very minimal sclerotic bone lesions in the pelvis and posterior L4 vertebral body. These may be benign bone islands. Head CT 12/05/21 16:41 IMPRESSION: No acute intracranial abnormality demonstrated. ASSESSMENT: ASPECTS ([place] Stroke Program Early CT Score) is 10. Head MRI 12/05/21 17:02 IMPRESSION: Scattered punctate infarcts bilaterally, compatible with an embolic etiology. Chest X-Ray 12/06/21 14:12 IMPRESSION: Unremarkable chest radiograph. Foot MRI 12/07/21 09:30 IMPRESSION: 1. Prior postoperative changes partial resection of the mid and distal 1st metatarsal. 2. Diffuse cellulitis with soft tissue edema worse involving the dorsal midfoot soft tissues overlying the tarsal bones and proximal metatarsals. 3. Lobulated T2 hyperintense fluid collection with septations overlying the d orsal aspect of the midfoot extending laterally. This extends to the dorsal intertarsal soft tissues with surrounding cellulitis. Findings suspicious for phlegmon/abscess. Some of this may represent chronic inflammatory fluid. 4. No definite evidence of acute osteomyelitis. Laboratory Results WBC 15.2 10^3/uL (4.0-10.0) H 12/07/21 02:28 RBC 3.90 10^6/uL (4.1-5.3) L 12/07/21 02:28 Hgb 11.3 g/dL (11.7-16.6) L 12/07/21 02:28 Hct 34.9 % (42.0-52.0) L 12/07/21 02:28 MCV 89.5 fl (80-94) 12/07/21 02: MCH 29.0 pg (28.0-34.0) 12/07/21 02: MCHC 32.4 g/dL (30.0-36.0) 12/07/21 02: RDW 14.1 % (12.1-15.1) 12/07/21 02:28 Plt Count 181 10^3/cmm (130-400) 12/07/21 02:28 MPV 10.8 fL (7.4-10.4) H 12/07/21 02:28 Neut % (Auto) 83.6 % 12/07/21 02: Lymph % (Auto) 7.0 % 12/07/21 02:28 [place] % (Auto) 8.5 % 12/07/21 02:28 Eos % (Auto) 0.3 % 12/07/21 02:28 Baso % (Auto) 0.1 % 12/07/21 02:28 Neut # (Auto) 12.66 10^3/uL (1.8-7.7) H 12/07/21 02:28 Lymph # (Auto) 1.1 10^3/uL (0.8-4.8) 12/07/21 02:28 [place] # (Auto) 1.3 10^3/uL (0.2-0.9) H 12/07/21 02:28 Eos # (Auto) 0.1 10^3/uL (0.0-0.8) 12/07/21 02:28 Baso # (Auto) 0.0 10^3/uL (0.0-0.1) 12/07/21 02:28 Nucleated RBC % (auto) 0 % 12/07/21 02:28 Nucleated RBCs # 0.0 /100WBC 12/07/21 02:28 ESR 68 mm/hr (0-10) H 12/04/21 16:42 Specimen Type Arterial 12/05/21 12:05 Sample Site Radial, left 12/05/21 12:05 ABG pH 7.42 (7.35-7.45) 12/05/21 12:05 ABG pCO2 33.5 mmHg (35-45) L 12/05/21 12:05 ABG pO2 88.9 mmHg (80.0-100.0) 12/05/21 12:05 ABG HCO3 21.8 mmol/L (22-26) L 12/05/21 12:05 ABG O2 Saturation 97.1 12/05/21 12:05 ABG Base Excess -2.1 mmol/L (-2.0-2.0) L 12/05/21 12:05 Eliu Test Pos 12/05/21 12:05 A-a O2 Gradient 14.4 mmHg (5-10) H 12/05/21 12:05 Hematocrit 38.7 % (42-52) L 12/05/21 12:05 Hgb O2 Saturation 95.1 % (95-100) 12/05/21 12:05 Carboxyhemoglobin 1.5 %THgb (0.4-20.1) 12/05/21 12:05 Methemoglobin 0.5 % (0.4-1.5) 12/05/21 12:05 Total Hemoglobin 12.6 g/dL (14-18) L 12/05/21 12:05 Sodium 134.0 mmol/L (131-143) 12/05/21 12:05 Potassium 4.5 mmol/L (3.5-5.0) 12/05/21 12:05 Glucose 244.0 mg/dL (70-115) H 12/05/21 12:05 Ionized Calcium 1.1 mmol/L (1.1-1.4) 12/05/21 12:05 O2 Delivery Device Nc 12/05/21 12:05 O2 Liters/Min 3.5 % 12/05/21 12:05 FiO2 34.0 % 12/05/21 12:05 Percussion Tuner ID [place] 12/05/21 12:05 Sodium 133 mmol/L (136-145) L 12/07/21 17:00 Potassium 4.2 mmol/L (3.5-5.1) 12/07/21 17:00 Chloride 97 mmol/L (98-107) L 12/07/21 17:00 Carbon Dioxide 21 mmol/L (22-29) L 12/07/21 17:00 Anion Gap 19.2 (5-19) H 12/07/21 17:00 BUN 54 mg/dL (6-20) H 12/07/21 17:00 Creatinine 3.2 mg/dL (0.7-1.2) H 12/07/21 17:00 GFR Calculation 20.5 mL/min (90-130) L 12/07/21 17:00 Glucose 338 mg/dL (65-115) H 12/07/21 17:00 POC Glucose 292 mg/dL (70-110) H 12/07/21 20:18 Estimat Average Glucose 174 12/05/21 01:54 Hemoglobin A1c 7.7 % (4.0-6.0) H 12/05/21 01:54 Calculated Osmolality 304 mOsm/kg (285-295) H 12/07/21 17:00 Lactate 2.0 mmol/L (0.5-2.2) 12/05/21 01:54 Uric Acid 11.2 mg/dL (3.4-7.0) H 12/06/21 09:18 Calcium 8.9 mg/dL (8.5-10.5) 12/07/21 17:00 Phosphorus 3.0 mg/dL (2.5-4.5) 12/07/21 02:28 Magnesium 1.8 mg/dL (1.7-2.3) 12/07/21 02:28 Iron 16 ug/dL (59-158) L 12/04/21 16:42 TIBC 284 mcg/dl 12/04/21 16:42 % Saturation 5.6 % (20-50) L 12/04/21 16:42 Unsat Iron Binding 268 ug/dL (112-347) 12/04/21 16:42 Total Bilirubin 0.4 mg/dL (0.15-1.2) 12/07/21 02:28 AST 60 U/L (0-40) H 12/07/21 02:28 ALT 38 U/L (0-41) 12/07/21 02:28 Alkaline Phosphatase 119 IU/L (40-130) 12/07/21 02:28 Creatine Kinase 1210 U/L (39-308) H* 12/07/21 17:00 Troponin T Baseline 21 ng/L (0-15) H 12/04/21 16:42 Troponin T 120 Minute 25.83 ng/L (0-15) H 12/04/21 18:38 Delta Troponin T 4.83 ABS# (0-10) 12/04/21 18:38 Troponin T Hi Sens 6Hr 33.25 ng/L (0-15) H 12/05/21 01:54 Troponin T Hi Sens 6Hr Delta 12.25 ng/L (0-12) H* 12/05/21 01:54 C-Reactive Protein 363.9 mg/L (0.0-4.9) H 12/04/21 16:42 NT-Pro-B Natriuret Pep 702 pg/mL (0-125) H 12/04/21 16:42 Total Protein 6.4 g/dL (6.6-8.7) L 12/07/21 02:28 Albumin 2.8 g/dL (3.5-5.2) L 12/07/21 02:28 Globulin 3.6 g/dL (1.3-4.6) 12/07/21 02:28 Triglycerides 126 mg/dL (0-150) 12/05/21 01:54 Cholesterol 94 mg/dL (0-200) 12/05/21 01:54 LDL Cholesterol, Calc 28 mg/dL (50-129) L 12/05/21 01:54 Total VLDL Cholesterol 25 mg/dL (0-30) 12/05/21 01:54 HDL Cholesterol 41 mg/dL (60-100) L 12/05/21 01:54 Cholesterol/HDL Ratio 2.29 mg/dL (1.0-5.00) 12/05/21 01:54 Amylase 18 U/L (28-100) L 12/04/21 16:42 Lipase 17 U/L (13-60) 12/04/21 16:42 Vitamin B12 475 pg/mL (232-1245) 12/04/21 16:42 25-OH Vitamin D Total 17 ng/mL (30-100) L 12/07/21 02:28 Folate 16.0 ng/mL (4.5-32.2) 12/04/21 16:42 Procalcitonin 2.14 ng/mL (0-0.5) H 12/04/21 16:42 TSH 1.70 uIU/mL (0.27-4.20) 12/04/21 16:42 Prolactin 6.74 ng/mL (4.0-15.2) 12/07/21 07:58 Urine Color Cancelled 12/05/21 10:18 Urine Appearance Cancelled 12/05/21 10:18 Urine pH Cancelled 12/05/21 10:18 Ur Specific [place] Cancelled 12/05/21 10:18 Urine Protein Cancelled 12/05/21 10:18 Urine Glucose (UA) Cancelled 12/05/21 10:18 Urine Ketones Cancelled 12/05/21 10:18 Urine Blood Cancelled 12/05/21 10:18 Urine Nitrate Cancelled 12/05/21 10:18 Urine Bilirubin Cancelled 12/05/21 10:18 Prot Sulfosalicylic Acd Cancelled 12/05/21 10:18 Urine Urobilinogen Cancelled 12/05/21 10:18 Ur Leukocyte Esterase Cancelled 12/05/21 10:18 Ur Microscopic Indic Cancelled 12/05/21 10:18 Urine RBC 5-10 /hpf (0-2) H 12/05/21 03:50 Urine WBC 0-4 /hpf (0-5) H 12/05/21 03:50 Ur Eosinophil Smear 0 (0-0) 12/05/21 10:18 Ur Squamous Epith Cells 0-4 /hpf (0-5) H 12/05/21 03:50 Amorphous Sediment 4+ /hpf 12/05/21 03:50 Urine Bacteria 2+ /hpf (NONE) H 12/05/21 03:50 Urine Eosinophils No eosinophils seen 12/05/21 10:18 Ur Random Sodium 12 mmol/L 12/05/21 10:18 Ur Random Potassium 62 mmol/L 12/05/21 10:18 Ur Random Chloride 11 mmol/L 12/05/21 10:18 Urine Creatinine 438 mg/dL (39-259) H 12/05/21 10:18 Vancomycin Trough 18.4 ug/mL (10-15) H 12/07/21 14:10 Urine Opiates Screen Negative ng/mL (Negative) 12/05/21 10:18 Ur Barbiturates Screen Negative ng/mL (Negative) 12/05/21 10:18 Ur Phencyclidine Scrn Negative ng/mL (Negative) 12/05/21 10:18 Ur Amphetamines Screen Negative ng/mL (Negative) 12/05/21 10:18 U Benzodiazepines Scrn Negative ng/mL (Negative) 12/05/21 10:18 Urine Cocaine Screen Negative ng/mL (Negative) 12/05/21 10:18 U Marijuana (THC) Screen Negative ng/mL (Negative) 12/05/21 10:18 Complement C3 164 mg/dL (90-180) 12/06/21 09:18 Complement C4 66 mg/dL (10-40) H 12/06/21 09:18 Coronavirus 229E (PCR) Not detected (NOT DETECT) 12/05/21 19:25 Hepatitis C Antibody Non-reactive (Nonreactive) 12/06/21 15:49 SARS-CoV-2 (PCR) Not detected (NOT DETECT) 12/05/21 19:25 SARS-CoV-2 RNA (RT-PCR) Cancelled 12/05/21 14:44 SARS-CoV-2 Ag (Rapid) Negative (Negative) 12/04/21 21:30 A&P Assessment and plan (1) Septicemia: Status: Acute (2) Embolic stroke: Status: Acute (3) Cellulitis of foot, right: Status: Acute (4) Sepsis: Status: Acute (5) Acute kidney injury: Status: Acute Plan 51-year-old male with a past medical history of MSSA osteomyelitis of the right foot currently admitted with MSSA septicemia complicated by septic embolization to the MEDICAL PHYSICIST and acute kidney injury. # MSSA septicemia complicated by septic embolization to MEDICAL PHYSICIST and KARI as a result of sepsis vs possible embolization -Gram-positive cocci identified as MSSA from 12/04 CX from 12/06 thus far negative. Currently on antibiotic treatment with cefepime and vancomycin. Discontinue both today. Switch treatment to cefazolin 2 g IV every 8 hours. Currently creatinine clearance 37, continue with 6 g daily dose. Should creatinine clearance fall to less than 30 will need cefazolin dose adjustment. MRI of his foot shows a developing phlegmon in the foot. Podiatry recommendations noted. No current plans for debridement. TTE shows mitral and aortic wall thickening, no gross vegetations noted. Recommend BECKA. will follow Attestations Medical Necessity Statement*: see admitting note Coding Level of Care Code Acute Map Drafter for [facility] Fwd Diagnoses Septicemia A41.9 Embolic stroke I63.9 Cellulitis of foot, right L03.115 Sepsis A41.9 Acute kidney injury N17.9
[2021-12-07 15:15] LABS: Vancomycin Trough 18.4 ug/mL (10-15)
[2021-12-07] MEDS: vancomycin 1,500 MG/300 ML PIGGYBACK 200 MG IV (17:04)
[2021-12-07] MEDS: pantoprazole 40 mg SDV IVP (17:04)
[2021-12-07 17:11] LABS: Glucose Point of Care 341 mg/dL (70-110)
[2021-12-07 17:51] LABS: Anion Gap 19.2 (5-19); Blood Urea Nitrogen 54 mg/dL (6-20); Calcium 8.9 mg/dL (8.5-10.5); Carbon Dioxide 21 mmol/L (22-29); Chloride 97 mmol/L (98-107); Glomerular Filtration Rate 20.5 mL/min (90-130); Glucose 338 mg/dL (65-115); Osmolality Calculated 304 mOsm/kg (285-295); Potassium 4.2 mmol/L (3.5-5.1); Sodium 133 mmol/L (136-145)
[2021-12-07 17:54] LABS: Creatine Phosphokinase 1210 U/L (39-308)
[2021-12-07] MEDS: acetaminophen 325 mg Tablet 650 MG PO (18:13)
--- NOTE | 2021-12-07 18:13 | PC.NURSE ---
doctor notified of temp 102.4
[2021-12-07] MEDS: cefepime 2,000 MG in sodium chloride 0.9% (plus) 50 ML 100 MG IV (19:39)
[2021-12-07 21:04] LABS: Glucose Point of Care 292 mg/dL (70-110)
[2021-12-08] VITALS (49 sets, daily range): BP systolic 156–196; BP diastolic 80–112; PULSE 63–110; RESP 0–28; TEMP 36.2–38.1; O2SAT 79–97
--- NOTE | 2021-12-08 00:35 | PC.NURSE ---
Blood Pressure Patient's systolic blood pressure ranging from [address] Woodruff notified and verbal order received to resume 25 mg PO TID hydralazine order and give a one time dose now. Medication administered per JUL.
[2021-12-08] MEDS: sodium chloride 0.9% 1,000 ML 75 ML IV (00:46)
[2021-12-08] MEDS: hyDRALAzine 25 mg Tablet PO ×4 (00:47→20:47)
[2021-12-08 04:37] LABS: Basophils # 0.1 10^3/uL (0.0-0.1); Basophils % 0.3 %; Eosinophils # 0.1 10^3/uL (0.0-0.8); Eosinophils % 0.4 %; Hematocrit 35.9 % (42.0-52.0); Hemoglobin 11.1 g/dL (11.7-16.6); Lymphocytes # 1.2 10^3/uL (0.8-4.8); Lymphocytes % 7.6 %; Mean Corpuscular HGB Conc 30.9 g/dL (30.0-36.0); Mean Corpuscular Volume 93.7 fl (80-94); Mean Platelet Volume 11.3 fL (7.4-10.4); Monocytes # 1.2 10^3/uL (0.2-0.9); Monocytes % 7.5 %; Neutrophils # 13.43 10^3/uL (1.8-7.7); Neutrophils % 83.5 %; Nucleated Red Blood Cells % 0 %; Platelet Count 184 10^3/cmm (130-400); Red Blood Count 3.83 10^6/uL (4.1-5.3); Red Cell Distribution Width 14.3 % (12.1-15.1); White Blood Count 16.1 10^3/uL (4.0-10.0)
[2021-12-08 04:57] LABS: Slide Review Slide Review Perform
[2021-12-08 05:02] LABS: Alanine Aminotransferase 50 U/L (0-41); Albumin Level 2.4 g/dL (3.5-5.2); Alkaline Phosphatase 151 IU/L (40-130); Anion Gap 19.2 (5-19); Aspartate Amino Transferase 51 U/L (0-40); Blood Urea Nitrogen 52 mg/dL (6-20); Calcium 9.1 mg/dL (8.5-10.5); Carbon Dioxide 19 mmol/L (22-29); Chloride 102 mmol/L (98-107); Globulin 4.1 g/dL (1.3-4.6); Glomerular Filtration Rate 22.1 mL/min (90-130); Glucose 219 mg/dL (65-115); Osmolality Calculated 303 mOsm/kg (285-295); Phosphorus 2.8 mg/dL (2.5-4.5); Potassium 4.2 mmol/L (3.5-5.1); Sodium 136 mmol/L (136-145); Total Bilirubin 0.3 mg/dL (0.15-1.2); Total Protein 6.5 g/dL (6.6-8.7)
[2021-12-08 05:17] LABS: Creatine Phosphokinase 632 U/L (39-308)
[2021-12-08] MEDS: acetaminophen 325 mg Tablet 650 MG PO ×2 (05:55→17:56)
[2021-12-08] MEDS: insulin glargine 100 units/1 mL 10 UNIT SUBCUT (05:55)
[2021-12-08 06:10] LABS: Glucose Point of Care 235 mg/dL (70-110)
[2021-12-08 07:39] LABS: Glucose Point of Care 251 mg/dL (70-110)
--- NOTE | 2021-12-08 08:04 | P.PN_ITS ---
Subjective Subjective: more awake. feels better. still spiking temps. excellent uop. no n/v/rodriguez/d Medications: Reviewed: Yes Medication Review Details: Current Medications Acetaminophen (Acetaminophen 325 Mg Tablet) 650 mg PO Q6H PRN PRN Reason: Mild/Mod Pain Or Temp >/= 101 Last Admin: 12/08/21 05:55 Dose: 650 mg Aspirin (Aspirin 81 Mg Ec Tablet) 81 mg PO DAILY [facility] Last Admin: 12/07/21 09:09 Dose: 81 mg Atorvastatin Calcium (Atorvastatin 40 Mg Tablet) 40 mg PO DAILY [facility] Last Admin: 12/07/21 09:09 Dose: 40 mg Calcium Carbonate (Calcium Carbonate 500 Mg Chew Tablet) 1,000 mg PO Q4H PRN PRN Reason: DYSPEPSI Clonidine HCl (Clonidine 0.1 Mg/24 Hr Patch) 1 patch TRANSDERMA Q7D [facility] Last Admin: 12/07/21 09:25 Dose: 1 patch Dextrose (Dextrose 50% Syringe 50 Ml) 25 ml IVP ONCE PRN; Protocol PRN Reason: hypoglycemia protocol Dextrose (Dextrose 50% Syringe 50 Ml) 50 ml IVP PRN PRN; Protocol PRN Reason: hypoglycemia protocol Docusate Sodium (Docusate Sodium 100 Mg Capsule) 100 mg PO BID [facility] Last Admin: 12/07/21 17:04 Dose: 100 mg Ferrous Gluconate (Ferrous Gluconate 324 Mg Tablet) 324 mg PO BIDWM [facility] Last Admin: 12/07/21 17:04 Dose: 324 mg Glucagon (Glucagon 1 Mg/Ml Inj 1 Ml) 1 mg IM ONCE PRN; Protocol PRN Reason: Adult Acute Hypoglycemia Prot. Heparin Sodium (Porcine) (Heparin 5,000 Unit/Ml Inj 1 Ml) 5,000 unit SUBCUT Q12H [facility] Last Admin: 12/07/21 20:14 Dose: 5,000 unit Hydralazine HCl (Hydralazine 25 Mg Tablet) 25 mg PO TID [facility] Dextrose (D5w) 500 mls @ 100 mls/hr IV ONCE PRN; Protocol PRN Reason: Adult Acute Hypoglycemia Prot Sodium Chloride (Sodium Chloride 0.9%) 1,000 mls @ 75 mls/hr IV .[id number] [facility] Last Admin: 12/08/21 00:46 Dose: 75 mls/hr Cefazolin Sodium 2,000 mg/ (Sodium Chloride) 50 mls @ 100 mls/hr IV Q8H [facility]; Protocol Insulin Glargine (Insulin Glargine 100 Units/1 Ml) 10 unit SUBCUT QAM [facility] Last Admin: 12/08/21 05:55 Dose: 10 unit Insulin Human Lispro (Insulin Lispro 100 Unit/1 Ml) 0 unit SUBCUT WM&BEDTIME SONIA; Protocol Last Admin: 12/07/21 20:26 Dose: 12 unit Magnesium Hydroxide (Magnesium Hydroxide 30 Ml Udc) 30 ml PO DAILY PRN; Protocol PRN Reason: Constipation (see protocol) Morphine Sulfate (Morphine 4 Mg/Ml Sdv 1 Ml) 2 mg IVP Q4H PRN PRN Reason: SEVERE PAIN Nifedipine (Nifedipine Er (24 Hr) 30 Mg Tablet) 60 mg PO DAILY [facility] Last Admin: 12/05/21 08:50 Dose: 60 mg Ondansetron HCl (Ondansetron 2 Mg/Ml Sdv 2 Ml) 4 mg IVP Q6H PRN PRN Reason: NAUSEA AND VOMITING Pantoprazole Sodium (Pantoprazole 40 Mg Sdv) 40 mg IVP Q24H [facility]ON[facility] Last Admin: 12/07/21 17:04 Dose: 40 mg Vitals/I&O/Wt Last Vital Signs Temp 98.7 F 12/08/21 04:00 Pulse 75 12/08/21 07:00 Resp 18 12/08/21 04:00 BP 158/89 12/08/21 04:00 Pulse Ox 92 12/08/21 04:00 O2 Del Method 12/08/21 04:00 O2 Flow Rate 4 12/06/21 06:00 FiO2 30 12/08/21 02:00 12/07/21 12/08/21 12/08/21 22:59 06:59 14:59 Intake Total 2100 / 3700 Output Total 1800 / 5550 2425 / 7975 Balance 300 / -1850 -2425 / -4275 Weight last 48 hrs Weight 136.985 kg Physical Exam Narrative: comfortable chair, NARD vs noted - fevers noted heent- nc/at, eomi, anicteric neck supple lungs clear b/l heart reg abd soft, nt, +BS ext b/l edema dec, rt foot warm, tender neuro- a,a, ox 3 Urinary Catheter Management: Díaz: Cath Placed During This Visit: yes Reason for Continuing Indwelling Catheter: Accurate Measurement of Urinary Output in Critically Ill Patients Urinary Catheter Date of Insertion: 12/05/21 Urinary Catheter Time of Insertion: 01:38 Data : 12/08/21 03:22 12/08/21 03:22 Micro: Microbiology 12/07/21 19:25 Blood Culture - Preliminary Blood SPECIMEN COLLECTED 12/07/21 19:20 Blood Culture - Preliminary Blood SPECIMEN COLLECTED 12/04/21 20:41 Blood Culture - Preliminary Blood Staphylococcus aureus 12/06/21 09:18 Blood Culture - Preliminary Blood NEGATIVE TO DATE 12/06/21 09:15 Blood Culture - Preliminary Blood NEGATIVE TO DATE 12/05/21 03:50 Legionella Urinary Antigen - Final Urine,Clean Catch Urine Culture - Final A&P Assessment and plan (1) Acute kidney injury: 51 yr old man HTN, obesity, IDDM, RT foot cellulitis 1. staph aureus bacteremia- amp and PCN resistant. -leuekocytosis and fevers persists 2. 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 KARI- likely from sepsis- note cr was high on admission and SBP was over 200. - his BP was normalized to low quickly- dropping of BP can cause KARI -pt has septic emboli-possible that he also has septic emboli to his kidneys -pt was on pascal-2 inhibitor, aldactone, mariana-i, and diuretics prior to admission- raising his risk for KARI -u/a 4+ gluc, 1+ ketone, 3+ blood, 5-10 rbc- check ck -low ur na noted- however, clinically not prerena; -neg ur eos -perinephric stranding on cT scan is c/w an infection -cr improving. -excellent uop -ivf as needed -monitor vanco trough, keep under 19 -allow BP to rise to 140-150/ 80-89 -ck of 4314 - is unlikely to cause KARI-but will monitor bid 4. while ur ketones+, pH is 7.42/33- primary resp alkalosis and mild met acidosis 5. MRI w/ embolic CVA 6. dm care per medicine. hgba1c is 7.7 7. ck improving change ivf to lr 8. monitor bp renal dose meds seen and examined w/ RN- telehealth visit time spent 30 min Status: Acute Plan as above Attestations Medical Necessity Statement*: cellulitis, fevers, kari Time Spent in Patient Care: 16 - 35 minutes (>than 50% of time spent in counselling and/or direct pt care on unit) . Coding Level of Care Code Acute Auto Body Man for Priscilla Jones Diagnoses Acute kidney injury N17.9
[2021-12-08] MEDS: ceFAZolin 2,000 MG in sodium chloride 0.9% (plus) 50 ML 100 MG IV ×2 (08:52→16:17)
[2021-12-08] MEDS: ferrous gluconate 324 mg Tablet PO ×2 (08:53→17:24)
[2021-12-08] MEDS: lactated ringers 1,000 ML 100 ML IV ×2 (08:53→20:39)
[2021-12-08] MEDS: atorvastatin 40 mg Tablet PO (08:53)
[2021-12-08] MEDS: aspirin 81 mg EC Tablet PO (08:53)
[2021-12-08] MEDS: insulin lispro 100 unit/1 mL SUBCUT ×4 (08:54→20:48)
[2021-12-08] MEDS: docusate sodium 100 mg Capsule PO ×2 (08:54→17:23)
[2021-12-08] MEDS: heparin 5,000 unit/mL INJ 1 mL 5000 UNIT SUBCUT ×2 (08:55→20:48)
--- NOTE | 2021-12-08 09:08 | P.PN_ITS ---
Subjective Subjective: Patient seen bedside, tolerating regular diet. Endorses pain to the right foot. Vitals/I&O/Wt Last Vital Signs Temp 98.7 F 12/08/21 04:00 Pulse 75 12/08/21 07:00 Resp 18 12/08/21 04:00 BP 158/89 12/08/21 04:00 Pulse Ox 92 12/08/21 04:00 O2 Del Method 12/08/21 04:00 O2 Flow Rate 4 12/06/21 06:00 FiO2 30 12/08/21 02:00 12/07/21 12/08/21 12/08/21 22:59 06:59 14:59 Intake Total 2100 / 3700 Output Total 1800 / 5550 2425 / 7975 Balance 300 / -1850 -2425 / -4275 Weight last 48 hrs Weight 302 lb Physical Exam Narrative: Patient is alert and oriented ?3 and in no acute distress.? The following is a focused bilateral lower extremity exam. VASCULAR: Dorsalis pedis palpable +2 bilaterally, posterior tibial arteries palpable +2 bilaterally.? Capillary refill time less than 3 seconds to the distal hallux bilaterally. Calf is supple and nontender proximally and distally. Edema to the right foot and leg. NEUROLOGICAL: Protective sensation intact 0/10 sites, tested with [place] monofilament to bilateral feet. DERMATOLOGICAL: Water blister area with wound limited to breakdown of skin only to the dorsal lateral aspect of the right forefoot. Able to palpate fluid collection deep to this. No soft tissue crepitus on palpation. MUSCULOSKELETAL: No pain with posterior calf squeeze bilaterally. Muscle strength 5 out of 5 in all three cardinal planes to the right foot and ankle. Urinary Catheter Management: Díaz: Cath Placed During This Visit: yes Reason for Continuing Indwelling Catheter: Accurate Measurement of Urinary Output in Critically Ill Patients Urinary Catheter Date of Insertion: 12/05/21 Urinary Catheter Time of Insertion: 01:38 Data : 12/08/21 03:22 12/08/21 03:22 Micro: Microbiology 12/07/21 19:25 Blood Culture - Preliminary Blood SPECIMEN COLLECTED 12/07/21 19:20 Blood Culture - Preliminary Blood SPECIMEN COLLECTED 12/04/21 20:41 Blood Culture - Preliminary Blood Staphylococcus aureus 12/06/21 09:18 Blood Culture - Preliminary Blood NEGATIVE TO DATE 12/06/21 09:15 Blood Culture - Preliminary Blood NEGATIVE TO DATE 12/05/21 03:50 Legionella Urinary Antigen - Final Urine,Clean Catch Urine Culture - Final A&P Assessment and plan (1) Cellulitis of foot, right: Status: Acute (2) Chronic osteomyelitis of right foot: Pleasant 51-year-old diabetic male admitted to the ICU for tachycardia and malaise. Presented to podiatry clinic on 12/04/2021, tachycardia on triage and deferred to emergency department and subsequently admitted. He reports a 3 to 4-day history of feeling weak and lack of appetite. Also 3 to 4-day history of increased redness and swelling to his right foot. History of impressive diabetic foot ulcer with osteomyelitis to the great toe and first metatarsal of the right foot that was managed both surgically and medically in 2020 treatments included extensive wound care, hyperbarics, surgical debridement and partial amputation combined with IV vancomycin through PICC line for greater than 6 weeks. Patient eventually went on to heal his wound and return to diabetic shoe gear and decreased to daily activities. Status: Acute (3) Diabetic peripheral neuropathy associated with type 2 diabetes mellitus: Status: Acute Plan Patient is febrile with leukocytosis, ESR 68. X-ray taken 12/04/2021 shows stable postoperative changes with resection of the base of the proximal phalanx and resection of the head of the first metatarsal. Comparison view that was taken 07/10/2021 actually shows improvement of disuse osteopenia with small erosive changes at the distal phalanx has now resolved. Osteotomy site through the base of the proximal phalanx and at the first metatarsal are well corticated without further osseous destruction. Bony fragments within the interspace are well corticated have smooth rounded appearance without resorption or periosteal reaction. CT scan not indicative of osteomyelitis or drainable abscess. Laboratory findings are indicative of potential osteomyelitis acute on chronic at the right foot however his clinical picture he does not have any open wound. Edema, erythema and warmth increases dramatically when patient has right lower extremity in dependent position. Recommending MRI right foot without contrast given current renal function. Plans for 6 weeks of antibiotics on discharge for bacteremia, would obviously be concomitant therapy for underlying acute on chronic osteomyelitis, MRI would be helpful for further evaluation of the foot. Interim update Patient has developed a serous filled water blister limited breakdown of skin on the dorsal aspect of the right foot, deep to this there is a fluid collection palpable with significant edema to the right foot globally. Patient has remained febrile with significant leukocytosis while on empiric IV antibiotics. Correlating current clinical picture with MRI next best step is to proceed with I&D to the right foot. I&D scheduled for tomorrow morning 12/09/2021 8:00 AM, patient to be n.p.o. at midnight. Attestations Medical Necessity Statement*: Cellulitis right lower extremity Coding Level of Care Code Acute Annual Giving Manager for [facility] Robert Diagnoses Cellulitis of foot, right L03.115 Chronic osteomyelitis of right foot M86.671 Diabetic peripheral neuropathy associated with type 2 diabetes mellitus E11.42
[2021-12-08 11:22] LABS: Glucose Point of Care 275 mg/dL (70-110)
--- NOTE | 2021-12-08 16:17 | P.PN_ITS ---
Subjective Subjective: No acute events overnight. Patient denies any nausea, vomiting, headache. Sitting up in chair today. Awake and alert having complete conversation. Saturating well on room air. Good urine output. Documented urine output of around 8 L. T-max 102 Fahrenheit. Medications: Reviewed: Yes Medication Review Details: Current Medications Acetaminophen (Acetaminophen 325 Mg Tablet) 650 mg PO Q6H PRN PRN Reason: Mild/Mod Pain Or Temp >/= 101 Last Admin: 12/08/21 05:55 Dose: 650 mg Aspirin (Aspirin 81 Mg Ec Tablet) 81 mg PO DAILY [facility] Last Admin: 12/07/21 09:09 Dose: 81 mg Atorvastatin Calcium (Atorvastatin 40 Mg Tablet) 40 mg PO DAILY [facility] Last Admin: 12/07/21 09:09 Dose: 40 mg Calcium Carbonate (Calcium Carbonate 500 Mg Chew Tablet) 1,000 mg PO Q4H PRN PRN Reason: DYSPEPSI Clonidine HCl (Clonidine 0.1 Mg/24 Hr Patch) 1 patch TRANSDERMA Q7D [facility] Last Admin: 12/07/21 09:25 Dose: 1 patch Dextrose (Dextrose 50% Syringe 50 Ml) 25 ml IVP ONCE PRN; Protocol PRN Reason: hypoglycemia protocol Dextrose (Dextrose 50% Syringe 50 Ml) 50 ml IVP PRN PRN; Protocol PRN Reason: hypoglycemia protocol Docusate Sodium (Docusate Sodium 100 Mg Capsule) 100 mg PO BID [facility] Last Admin: 12/07/21 17:04 Dose: 100 mg Ferrous Gluconate (Ferrous Gluconate 324 Mg Tablet) 324 mg PO BIDWM [facility] Last Admin: 12/07/21 17:04 Dose: 324 mg Glucagon (Glucagon 1 Mg/Ml Inj 1 Ml) 1 mg IM ONCE PRN; Protocol PRN Reason: Adult Acute Hypoglycemia Prot. Heparin Sodium (Porcine) (Heparin 5,000 Unit/Ml Inj 1 Ml) 5,000 unit SUBCUT Q12H [facility] Last Admin: 12/07/21 20:14 Dose: 5,000 unit Hydralazine HCl (Hydralazine 25 Mg Tablet) 25 mg PO TID [facility] Dextrose (D5w) 500 mls @ 100 mls/hr IV ONCE PRN; Protocol PRN Reason: Adult Acute Hypoglycemia Prot Sodium Chloride (Sodium Chloride 0.9%) 1,000 mls @ 75 mls/hr IV .[id number] [facility] Last Admin: 12/08/21 00:46 Dose: 75 mls/hr Cefazolin Sodium 2,000 mg/ (Sodium Chloride) 50 mls @ 100 mls/hr IV Q8H [facility]; Protocol Insulin Glargine (Insulin Glargine 100 Units/1 Ml) 10 unit SUBCUT QAM [facility] Last Admin: 12/08/21 05:55 Dose: 10 unit Insulin Human Lispro (Insulin Lispro 100 Unit/1 Ml) 0 unit SUBCUT WM&BEDTIME [facility]; Protocol Last Admin: 12/07/21 20:26 Dose: 12 unit Magnesium Hydroxide (Magnesium Hydroxide 30 Ml Udc) 30 ml PO DAILY PRN; Protocol PRN Reason: Constipation (see protocol) Morphine Sulfate (Morphine 4 Mg/Ml Sdv 1 Ml) 2 mg IVP Q4H PRN PRN Reason: SEVERE PAIN Nifedipine (Nifedipine Er (24 Hr) 30 Mg Tablet) 60 mg PO DAILY [facility] Last Admin: 12/05/21 08:50 Dose: 60 mg Ondansetron HCl (Ondansetron 2 Mg/Ml Sdv 2 Ml) 4 mg IVP Q6H PRN PRN Reason: NAUSEA AND VOMITING Pantoprazole Sodium (Pantoprazole 40 Mg Sdv) 40 mg IVP Q24H [facility] Last Admin: 12/07/21 17:04 Dose: 40 mg Vitals/I&O/Wt Last Vital Signs Temp 98.7 F 12/08/21 04:00 Pulse 78 12/08/21 15:00 Resp 21 H 12/08/21 15:00 BP 161/99 12/08/21 13:00 Pulse Ox 92 12/08/21 12:00 O2 Del Method 12/08/21 04:00 O2 Flow Rate 4 12/06/21 06:00 FiO2 30 12/08/21 14:00 12/08/21 12/08/21 12/08/21 06:59 14:59 22:59 Intake Total 550 / 550 Output Total 2425 / 7975 2400 / 2400 Balance -2425 / -4275 -1850 / -1850 Weight last 48 hrs Weight 136.985 kg Physical Exam Narrative: General: AO x3, no acute distress, HEENT: PERRLA, pupils bilaterally equal and reactive Chest: Normal vesicular breath sounds, no added sounds, equal good air entry bilaterally CVS: S1-S2 regular, no murmurs, no tachycardia, no gallops, no rubs Abdomen: Soft, nontender, no organomegaly, bowel sounds present Neuro: No focal deficits, no facial deformity, AO x3, power 5/5 in all limbs Extremity: Right foot swollen, erythematous, tense to touch. Changes extending over up to ankle. Superficial ulceration noted over lower part of the leg. Urinary Catheter Management: Díaz: Cath Placed During This Visit: yes Reason for Continuing Indwelling Catheter: Accurate Measurement of Urinary Output in Critically Ill Patients Urinary Catheter Date of Insertion: 12/05/21 Urinary Catheter Time of Insertion: 01:38 Data : 12/08/21 03:22 12/08/21 03:22 Micro: Microbiology 12/07/21 20:50 MRSA Culture - Final Nose 12/07/21 19:25 Blood Culture - Preliminary Blood SPECIMEN COLLECTED 12/07/21 19:20 Blood Culture - Preliminary Blood SPECIMEN COLLECTED A&P Assessment and plan (1) Septicemia: Status: Acute (2) Embolic stroke: Status: Acute (3) Cellulitis of foot, right: Status: Acute (4) Sepsis: Status: Acute (5) Acute kidney injury: Status: Acute (6) Staphylococcal sepsis: Status: Acute (7) Acute ischemic multifocal multiple vascular territories stroke: Status: Acute (8) Oliguria: Status: Acute (9) Accelerated hypertension: Status: Acute (10) Resistant hypertension: Status: Acute (11) CPAP (continuous positive airway pressure) dependence: Status: Acute (12) Diabetes: Status: Chronic Qualifiers: Diabetes mellitus type: type 2 Diabetes mellitus half-way insulin use: without half-way use Diabetes mellitus complication status: without complication Qualified Code(s): E11.9 - Type 2 diabetes mellitus without complications (13) Obesity (BMI 30-39.9): Status: Acute Plan 51-year-old with past medical history of uncontrolled hypertension, type 2 diabetes mellitus, chronic osteomyelitis of the foot presents to the ER because he was found to be tachycardiac at podiatry clinic on presentation to the ER had uncontrolled hypertension, tachycardia with elevated white count. Sepsis: Ruled in with tachycardia, leukocytosis, target organ injury with acute kidney injury. Source right foot osteomyelitis versus cellulitis versus possible pyelonephritis. MSSA bacteremia Embolic stroke. Most likely septic. History of MSSA osteomyelitis. Appreciate culture sensitivities. Repeat blood culture from 12/06 so far negative. Switch antibiotic to cefazolin 2 g IV every 8 hourly. Given persistent fevers Case discussed with Dr. Burgos. Plan for I&D in a.m. N.p.o. after midnight. Echocardiogram discussed with Dr. Cook. Concern for infective endocarditis on mitral valve. Plan for BECKA on Friday. If blood cultures remain negative plan for PICC line placement Appreciate Dr. Ovalle's, Dr. Woodruff, Dr. Burgos's, Dr. Cook's recommendation. Uncontrolled hypertension: History of resistant hypertension: Better controlled. Patient off esmolol drip. Continue with clonidine 0.1 mg patch, hydralazine 25 mg 3 times daily. Will uptitrate as per goal. Goal blood pressure less than 140/90 mmHg with mean over 65. Will add medications as per goal blood pressure. Acute kidney injury: Could be secondary to sepsis in setting of ROMAN inhibitor and Lasix at home along with being given enalaprilat in the ER. Robust urine output. Creatinine improving. Urinalysis appreciated. Fena?0.1%?prerenal. CPK elevated Appreciate renal recommendations. Medical reconciliation done for nephrotoxic drugs.Hold off on Lasix and lisinopril. Fluid switched to Ringer lactate at 100 cc/h. Repeat BMP in evening. Strict input output charting, daily weights, Díaz catheter. Acute ischemic multifocal embolic stroke:-Chances of septic emboli. Antibiotics as above. Appreciate echocardiogram and carotid ultrasound. Continue with aspirin, statin. Rhabdomyolysis: Check prolactin to rule out subtle seizure. Fluid as above. Repeat CPK daily. Intractable nausea, vomiting: Currently controlled with zofran. [place] less, lipase within normal limits. COVID-19 antigen negative. Check PCR. Stool studies if patient have diarrhea. Type 2 diabetes mellitus: Insulin sliding scale moderate dose protocol. Carb consistent cardiac diet. A1c 7.7. Continue other chronic medications. Analgesia: Tylenol, [place] as needed Glycemic control: Insulin sliding scale moderate dose protocol Nutrition: Renal nondialysis carb consistent diet CODE STATUS: Full code PUD prophylaxis: Protonix DVT prophylaxis: Heparin 5000 every 12 hourly Discharge planning: Discharge home once medically cleared. Continue care at ICU level. Guarded prognosis. Care discussed in detail with patient's sister Ms. Barbosa. All the questions were answered. Attestations Medical Necessity Statement*: Requires further hospitalization for management of MSSA bacteremia secondary to foot cellulitis versus abscess, septic emboli stroke, acute kidney injury Time Spent in Patient Care: Greater than 35 minutes Coding Level of Care Code Acute Nursing Education Consultant for [facility] Diagnoses Septicemia A41.9 Embolic stroke I63.9 Cellulitis of foot, right L03.115 Sepsis A41.9 Acute kidney injury N17.9 Staphylococcal sepsis A41.2 Acute ischemic multifocal multiple vascular territories stroke I63.89 Oliguria R34 Accelerated hypertension I10 Resistant hypertension I10 CPAP (continuous positive airway pressure) dependence Z99.89 Diabetes E11.9 Diabetes mellitus type: type 2 Diabetes mellitus director long term care insulin use: without director long term care use Diabetes mellitus complication status: without complication Obesity (BMI 30-39.9) E66.9
[2021-12-08 16:49] LABS: Glucose Point of Care 224 mg/dL (70-110)
[2021-12-08] MEDS: insulin glargine 100 units/1 mL 15 UNIT SUBCUT (17:25)
[2021-12-08 19:00] LABS: Blood Urea Nitrogen 44 mg/dL (6-20); Calcium 9.1 mg/dL (8.5-10.5); Carbon Dioxide 23 mmol/L (22-29); Chloride 101 mmol/L (98-107); Glomerular Filtration Rate 27.3 mL/min (90-130); Glucose 248 mg/dL (65-115); Osmolality Calculated 303 mOsm/kg (285-295); Sodium 137 mmol/L (136-145)
[2021-12-08 20:35] LABS: Glucose Point of Care 268 mg/dL (70-110)
[2021-12-08] MEDS: pantoprazole 40 mg SDV IVP (20:39)
[2021-12-09] VITALS (51 sets, daily range): BP systolic 160–242; BP diastolic 74–134; PULSE 60–105; RESP 8–25; TEMP 36.6–38.3; O2SAT 71–100; BMI 44.3
[2021-12-09] MEDS: acetaminophen 325 mg Tablet 650 MG PO (00:33)
[2021-12-09] MEDS: ceFAZolin 2,000 MG in sodium chloride 0.9% (plus) 50 ML 100 MG IV ×4 (00:35→23:01)
[2021-12-09 04:09] LABS: Basophils # 0.1 10^3/uL (0.0-0.1); Basophils % 0.3 %; Eosinophils # 0.2 10^3/uL (0.0-0.8); Eosinophils % 1.1 %; Lymphocytes # 1.4 10^3/uL (0.8-4.8); Mean Corpuscular HGB Conc 34.4 g/dL (30.0-36.0); Mean Corpuscular Hemoglobin 29.6 pg (28.0-34.0); Mean Platelet Volume 10.6 fL (7.4-10.4); Monocytes # 1.2 10^3/uL (0.2-0.9); Monocytes % 7.4 %; Neutrophils # 12.67 10^3/uL (1.8-7.7); Neutrophils % 80.9 %; Nucleated Red Blood Cells % 0 %; Platelet Count 233 10^3/cmm (130-400); Red Blood Count 3.72 10^6/uL (4.1-5.3); Red Cell Distribution Width 13.9 % (12.1-15.1); White Blood Count 15.7 10^3/uL (4.0-10.0)
[2021-12-09 04:38] LABS: Alanine Aminotransferase 56 U/L (0-41); Albumin Level 2.7 g/dL (3.5-5.2); Alkaline Phosphatase 165 IU/L (40-130); Aspartate Amino Transferase 68 U/L (0-40); Blood Urea Nitrogen 41 mg/dL (6-20); Calcium 8.7 mg/dL (8.5-10.5); Carbon Dioxide 22 mmol/L (22-29); Chloride 103 mmol/L (98-107); Creatine Phosphokinase 224 U/L (39-308); Globulin 3.9 g/dL (1.3-4.6); Glucose 171 mg/dL (65-115); Magnesium 1.9 mg/dL (1.7-2.3); Osmolality Calculated 302 mOsm/kg (285-295); Phosphorus 2.9 mg/dL (2.5-4.5); Sodium 139 mmol/L (136-145); Total Bilirubin 0.2 mg/dL (0.15-1.2); Total Protein 6.6 g/dL (6.6-8.7)
--- NOTE | 2021-12-09 05:33 | PC.NURSE ---
Shift Summary Patient had an uneventful shift, rested throughout night. Remains alert/oriented x4 wearing BIPAP 30% FiO2. He had one report of pain overnight, PRN medication administered. IVF infusing per order-please see MAR for infusion rate. Díaz catheter drained 2200 mls of urine overnight. Right ankle wrapped, wound noted to left foot open to air-no other wounds/skin issues noted at this time.
--- NOTE | 2021-12-09 07:41 | W.PM.OPSUD ---
Surgery/Procedure H&P Update DATE OF PROCEDURE: December 09, 2021 DATE H&P PERFORMED: 04/17/21 CHANGES TO PREVIOUS DOCUMENTATION: None PREOP DIAGNOSIS: Osteomyelitis right foot PLANNED PROCEDURE: Operation Date: 12/09/21 08:10 Proposed Procedures p Incision And Drainage Right Foot(Right) - Tej Burgos DPM
--- NOTE | 2021-12-09 07:46 | ANES.PREANE2 ---
Pre-Anesthetic Assessment Height/Weight: Height 1.75 m Weight 136.106 kg Temp Pulse Resp BP Pulse Ox O2 Del Method O2 Flow Rate 99.8 F H 62 20 H 164/101 97 4 12/09/21 04:00 12/09/21 07:00 12/09/21 04:30 12/09/21 04:30 12/09/21 04:30 12/09/21 04:00 12/06/21 06:00 FiO2 30 12/09/21 06:00 Preop Diagnosis: Osteomyelitis right foot Operation Date: 12/09/21 08:10 Proposed Procedures p Incision And Drainage Right Foot(Right) - Tej Burgos DPM Familial anesthetic complications: NOne Was Beta Fito taken within 24 hours: N/A Was Clonidine taken within 24 hours: N/A Last intake: > 8hrs Social No alcohol and No tobacco Exam alert, oriented x 3, clear to auscultation bilaterally and regular rate & rhythm Airway Mallampati: Class IV Dentition: chipped (front) Comments: Comments: Large neck circumference Pulmonary Sleep Apnea CV/HEM Hypertension (uncontrolled HTN) KARI Metabolic Diabetes Mellitus and Morbid Obesity Sepsis Neuropsych Cerebrovascular Accident Anesthetic Plan ASA status: 4 Anesthesia: MAC Risk of > 500 ml blood loss (7ml/kg in children): No Medications/Allergies Home Medications Medication Instructions Recorded Confirmed Last Taken Type spironolactone 50 mg tablet 50 mg PO DAILY #90 tabs 12/11/20 12/04/21 12/04/21 Rx aspirin 81 mg tablet,delayed 81 mg PO DAILY #30 tabs 02/10/21 12/04/21 12/03/21 Rx release (Adult Aspirin Regimen) clonidine HCl 0.2 mg tablet 0.2 mg PO BID 04/19/21 12/04/21 12/04/21 History hydralazine 100 mg tablet 100 mg PO TID #90 tabs 05/30/21 12/04/21 Unknown Rx nifedipine 60 mg tablet,extended See Rx Instructions .Route 06/11/21 12/04/21 Unknown Rx release .COMPLEX #90 tabs lisinopril 40 mg tablet 40 mg PO BEDTIME #30 tabs 07/31/21 12/04/21 Unknown Rx rosuvastatin 10 mg tablet 10 mg PO DAILY #30 tabs 07/31/21 12/04/21 Unknown Rx semaglutide 1 mg/dose (4 mg/3 mL) See Rx Instructions .Route 11/07/21 12/04/21 12/03/21 Rx subcutaneous pen injector ([employer] .COMPLEX #3 mL celecoxib 100 mg capsule 100 mg PO BID 12/04/21 12/04/21 12/04/21 History furosemide 40 mg tablet 40 mg PO BID 12/04/21 12/04/21 Unknown History potassium chloride 20 mEq 20 meq PO DAILY 12/04/21 12/04/21 Unknown History tablet,extended release(part/cryst) Allergies Allergy/AdvReac Type Severity Reaction Status Date / Time Penicillins Allergy Unknown Verified 12/04/21 15:36 Current Medications Generic Name Dose Route Start Last Admin Trade Name Freq PRN Reason Stop Dose Admin Acetaminophen 650 mg 12/04/21 20:03 12/09/21 00:33 Acetaminophen 325 Mg Tablet PO 650 mg Q6H PRN Administration Mild/Mod Pain Or Temp >/= 101 Aspirin 81 mg 12/05/21 09:00 12/08/21 08:53 Aspirin 81 Mg Ec Tablet PO 81 mg DAILY SONIA Administration Atorvastatin Calcium 40 mg 12/05/21 09:00 12/08/21 08:53 Atorvastatin 40 Mg Tablet PO 40 mg DAILY SONIA Administration Clonidine HCl 1 patch 12/07/21 09:30 12/07/21 09:25 Clonidine 0.1 Mg/24 Hr Patch TRANSDERMA 1 patch Q7D SONIA Administration Docusate Sodium 100 mg 12/05/21 09:00 12/08/21 17:23 Docusate Sodium 100 Mg Capsule PO 100 mg BID SONIA Administration Ferrous Gluconate 324 mg 12/05/21 08:00 12/08/21 17:24 Ferrous Gluconate 324 Mg Tablet PO 324 mg BIDWM SONIA Administration Heparin Sodium (Porcine) 5,000 unit 12/04/21 21:00 12/08/21 20:48 Heparin 5,000 Unit/Ml Inj 1 Ml SUBCUT 5,000 unit Q12H SONIA Administration Hydralazine HCl 25 mg 12/05/21 21:00 12/08/21 20:47 Hydralazine 25 Mg Tablet PO 25 mg TID SONIA Administration Cefazolin Sodium 2,000 mg/ 50 mls @ 100 mls/hr 12/08/21 08:00 12/09/21 01:05 Sodium Chloride IV Infused Q8H SONIA Infusion Protocol Lactated Ringer's 1,000 mls @ 100 mls/hr 12/08/21 08:15 12/08/21 20:39 Lactated Ringers IV 100 mls/hr .Q10H SONIA Administration Insulin Glargine 15 unit 12/08/21 18:00 12/08/21 17:25 Insulin Glargine 100 Units/1 Ml SUBCUT 15 unit BID SONIA Administration Insulin Human Lispro 0 unit 12/04/21 21:00 12/08/21 20:48 Insulin Lispro 100 Unit/1 Ml SUBCUT 12 unit WM&BEDTIME SONIA Administration Protocol Nifedipine 60 mg 12/05/21 09:00 12/05/21 08:50 Nifedipine Er (24 Hr) 30 Mg Tablet PO 60 mg DAILY [facility] Administration Pantoprazole Sodium 40 mg 12/04/21 18:31 12/08/21 20:39 Pantoprazole 40 Mg Sdv IVP 40 mg Q24H SONIA Administration Additional Medication Information Current Medications Acetaminophen (Acetaminophen 325 Mg Tablet) 650 mg PO Q6H PRN PRN Reason: Mild/Mod Pain Or Temp >/= 101 Last Admin: 12/08/21 05:55 Dose: 650 mg Aspirin (Aspirin 81 Mg Ec Tablet) 81 mg PO DAILY [facility] Last Admin: 12/07/21 09:09 Dose: 81 mg Atorvastatin Calcium (Atorvastatin 40 Mg Tablet) 40 mg PO DAILY [facility] Last Admin: 12/07/21 09:09 Dose: 40 mg Calcium Carbonate (Calcium Carbonate 500 Mg Chew Tablet) 1,000 mg PO Q4H PRN PRN Reason: DYSPEPSI Clonidine HCl (Clonidine 0.1 Mg/24 Hr Patch) 1 patch TRANSDERMA Q7D [facility] Last Admin: 12/07/21 09:25 Dose: 1 patch Dextrose (Dextrose 50% Syringe 50 Ml) 25 ml IVP ONCE PRN; Protocol PRN Reason: hypoglycemia protocol Dextrose (Dextrose 50% Syringe 50 Ml) 50 ml IVP PRN PRN; Protocol PRN Reason: hypoglycemia protocol Docusate Sodium (Docusate Sodium 100 Mg Capsule) 100 mg PO BID [facility] Last Admin: 12/07/21 17:04 Dose: 100 mg Ferrous Gluconate (Ferrous Gluconate 324 Mg Tablet) 324 mg PO BIDWM [facility] Last Admin: 12/07/21 17:04 Dose: 324 mg Glucagon (Glucagon 1 Mg/Ml Inj 1 Ml) 1 mg IM ONCE PRN; Protocol PRN Reason: Adult Acute Hypoglycemia Prot. Heparin Sodium (Porcine) (Heparin 5,000 Unit/Ml Inj 1 Ml) 5,000 unit SUBCUT Q12H [facility] Last Admin: 12/07/21 20:14 Dose: 5,000 unit Hydralazine HCl (Hydralazine 25 Mg Tablet) 25 mg PO TID [facility] Dextrose (D5w) 500 mls @ 100 mls/hr IV ONCE PRN; Protocol PRN Reason: Adult Acute Hypoglycemia Prot Sodium Chloride (Sodium Chloride 0.9%) 1,000 mls @ 75 mls/hr IV .[id number] [facility] Last Admin: 12/08/21 00:46 Dose: 75 mls/hr Cefazolin Sodium 2,000 mg/ (Sodium Chloride) 50 mls @ 100 mls/hr IV Q8H [facility]; Protocol Insulin Glargine (Insulin Glargine 100 Units/1 Ml) 10 unit SUBCUT QAM [facility] Last Admin: 12/08/21 05:55 Dose: 10 unit Insulin Human Lispro (Insulin Lispro 100 Unit/1 Ml) 0 unit SUBCUT WM&BEDTIME [facility]; Protocol Last Admin: 12/07/21 20:26 Dose: 12 unit Magnesium Hydroxide (Magnesium Hydroxide 30 Ml Udc) 30 ml PO DAILY PRN; Protocol PRN Reason: Constipation (see protocol) Morphine Sulfate (Morphine 4 Mg/Ml Sdv 1 Ml) 2 mg IVP Q4H PRN PRN Reason: SEVERE PAIN Nifedipine (Nifedipine Er (24 Hr) 30 Mg Tablet) 60 mg PO DAILY [facility] Last Admin: 12/05/21 08:50 Dose: 60 mg Ondansetron HCl (Ondansetron 2 Mg/Ml Sdv 2 Ml) 4 mg IVP Q6H PRN PRN Reason: NAUSEA AND VOMITING Pantoprazole Sodium (Pantoprazole 40 Mg Sdv) 40 mg IVP Q24H [facility] Last Admin: 12/07/21 17:04 Dose: 40 mg PFSH Anesthesia Medical History Acute conjunctivitis, right eye Anemia BPH (benign prostatic hyperplasia) Cellulitis Diabetes Diabetes mellitus with polyneuropathy Dyslipidemia Edema Neuropathy Osteomyelitis of toe of right foot Pneumonia due to COVID-19 virus Post-acute COVID-19 syndrome Respiratory failure with hypoxia Saphenous vein clot Sleep apnea Family History Other CAD (coronary artery disease) Hypertension Social History Smoking and tobacco status: never smoked Data Anesthesia : 12/09/21 03:07 12/09/21 03:07 Short CBC 12/08/21 12/09/21 Range/Units 03:22 03:07 WBC 16.1 H 15.7 H (4.0-10.0) 10^3/uL Hgb 11.1 L 11.0 L (11.7-16.6) g/dL Hct 35.9 L 32.0 L (42.0-52.0) % MCV 93.7 86.0 D (80-94) fl Plt Count 184 233 (130-400) 10^3/cmm Neut % (Auto) 83.5 80.9 % Neut # (Auto) 13.43 H 12.67 H (1.8-7.7) 10^3/uL BMP 12/07/21 12/08/21 12/08/21 17:00 03:22 18:24 Sodium 133 L 136 137 Potassium 4.2 4.2 5.0 Chloride 97 L 102 101 Carbon Dioxide 21 L 19 L 23 BUN 54 H 52 H 44 H Creatinine 3.2 H 3.0 H 2.5 H Glucose 338 H 219 H 248 H Calcium 8.9 9.1 9.1 12/09/21 03:07 Sodium 139 Potassium 4.0 Chloride 103 Carbon Dioxide 22 BUN 41 H Creatinine 2.3 H Glucose 171 H Calcium 8.7 Cardiac Enzymes 12/07/21 12/07/21 12/08/21 Range/Units 07:58 17:00 03:22 Creatine Kinase 1618 H* 1210 H* 632 H* (39-308) U/L 12/09/21 Range/Units 03:07 Creatine Kinase 224 (39-308) U/L Liver Function 12/08/21 12/09/21 Range/Units 03:22 03:07 Total Bilirubin 0.3 0.2 (0.15-1.2) mg/dL AST 51 H 68 H (0-40) U/L ALT 50 H 56 H (0-41) U/L Alkaline Phosphatase 151 H 165 H (40-130) IU/L Albumin 2.4 L 2.7 L (3.5-5.2) g/dL Microbiology 12/07/21 19:20 Blood Culture - Preliminary Blood NEGATIVE TO DATE 12/07/21 19:25 Blood Culture - Preliminary Blood NEGATIVE TO DATE 12/07/21 20:50 MRSA Culture - Final Nose Cardiac Studies: Echocardiogram 12/05/21 Echocardiogram Ultrasound 12/31/19 Sestamibi Stress Test (Cardiology) 04/10/20
--- NOTE | 2021-12-09 08:27 | PC.NURSE ---
in surgery at this time .... for debriedment of right foot.
[2021-12-09] MEDS: vancomycin 1,000 MG SDV 1000 MG XX (08:37)
--- NOTE | 2021-12-09 08:37 | P.PN_ITS ---
Subjective Subjective: good uop. for I and D of foot today. no n/v/rodriguez/sob. + fevers Medications: Reviewed: Yes Medication Review Details: Current Medications Acetaminophen (Acetaminophen 325 Mg Tablet) 650 mg PO Q6H PRN PRN Reason: Mild/Mod Pain Or Temp >/= 101 Last Admin: 12/09/21 00:33 Dose: 650 mg Aspirin (Aspirin 81 Mg Ec Tablet) 81 mg PO DAILY [facility] Last Admin: 12/08/21 08:53 Dose: 81 mg Atorvastatin Calcium (Atorvastatin 40 Mg Tablet) 40 mg PO DAILY [facility] Last Admin: 12/08/21 08:53 Dose: 40 mg Calcium Carbonate (Calcium Carbonate 500 Mg Chew Tablet) 1,000 mg PO Q4H PRN PRN Reason: DYSPEPSI Clonidine HCl (Clonidine 0.1 Mg/24 Hr Patch) 1 patch TRANSDERMA Q7D [facility] Last Admin: 12/07/21 09:25 Dose: 1 patch Dextrose (Dextrose 50% Syringe 50 Ml) 25 ml IVP ONCE PRN; Protocol PRN Reason: hypoglycemia protocol Dextrose (Dextrose 50% Syringe 50 Ml) 50 ml IVP PRN PRN; Protocol PRN Reason: hypoglycemia protocol Docusate Sodium (Docusate Sodium 100 Mg Capsule) 100 mg PO BID [facility] Last Admin: 12/08/21 17:23 Dose: 100 mg Ferrous Gluconate (Ferrous Gluconate 324 Mg Tablet) 324 mg PO BIDWM [facility] Last Admin: 12/08/21 17:24 Dose: 324 mg Glucagon (Glucagon 1 Mg/Ml Inj 1 Ml) 1 mg IM ONCE PRN; Protocol PRN Reason: Adult Acute Hypoglycemia Prot. Heparin Sodium (Porcine) (Heparin 5,000 Unit/Ml Inj 1 Ml) 5,000 unit SUBCUT Q12H [facility] Last Admin: 12/08/21 20:48 Dose: 5,000 unit Hydralazine HCl (Hydralazine 25 Mg Tablet) 25 mg PO TID [facility] Last Admin: 12/08/21 20:47 Dose: 25 mg Dextrose (D5w) 500 mls @ 100 mls/hr IV ONCE PRN; Protocol PRN Reason: Adult Acute Hypoglycemia Prot Cefazolin Sodium 2,000 mg/ (Sodium Chloride) 50 mls @ 100 mls/hr IV Q8H [facility]; Protocol Last Infusion: 12/09/21 08:28 Dose: Infused Lactated Ringer's (Lactated Ringers) 1,000 mls @ 100 mls/hr IV .Q10H SONIA Last Admin: 12/08/21 20:39 Dose: 100 mls/hr Insulin Glargine (Insulin Glargine 100 Units/1 Ml) 15 unit SUBCUT BID [facility] Last Admin: 12/08/21 17:25 Dose: 15 unit Insulin Human Lispro (Insulin Lispro 100 Unit/1 Ml) 0 unit SUBCUT WM&BEDTIME SONIA; Protocol Last Admin: 12/08/21 20:48 Dose: 12 unit Magnesium Hydroxide (Magnesium Hydroxide 30 Ml Udc) 30 ml PO DAILY PRN; Protoc ol PRN Reason: Constipation (see protocol) Morphine Sulfate (Morphine 4 Mg/Ml Sdv 1 Ml) 2 mg IVP Q4H PRN PRN Reason: SEVERE PAIN Nifedipine (Nifedipine Er (24 Hr) 30 Mg Tablet) 60 mg PO DAILY [facility] Last Admin: 12/05/21 08:50 Dose: 60 mg Ondansetron HCl (Ondansetron 2 Mg/Ml Sdv 2 Ml) 4 mg IVP Q6H PRN PRN Reason: NAUSEA AND VOMITING Pantoprazole Sodium (Pantoprazole 40 Mg Sdv) 40 mg IVP Q24H [facility] Last Admin: 12/08/21 20:39 Dose: 40 mg Vitals/I&O/Wt Last Vital Signs Temp 99.8 F H 12/09/21 04:00 Pulse 62 12/09/21 07:00 Resp 20 H 12/09/21 04:30 BP 164/101 12/09/21 04:30 Pulse Ox 97 12/09/21 04:30 O2 Del Method 12/09/21 04:00 O2 Flow Rate 4 12/06/21 06:00 FiO2 30 12/09/21 06:00 12/08/21 12/09/21 12/09/21 22:59 06:59 14:59 Intake Total 2250 / 2800 450 / 3250 13.333 / 13.333 Output Total 2000 / 4400 2200 / 6600 Balance 250 / -1600 -1750 / -3350 13.333 / 13.333 Weight last 48 hrs Weight 136.106 kg Physical Exam Narrative: comfortable chair, NARD vs noted - fevers noted heent- nc/at, eomi, anicteric neck supple lungs clear b/l heart reg abd soft, nt, +BS ext b/l edema dec, rt foot warm, tender neuro- a,a, ox 3 Urinary Catheter Management: Díaz: Cath Placed During This Visit: yes Reason for Continuing Indwelling Catheter: Accurate Measurement of Urinary Output in Critically Ill Patients Urinary Catheter Date of Insertion: 12/05/21 Urinary Catheter Time of Insertion: 01:38 Data : 12/09/21 03:07 12/09/21 03:07 Micro: Microbiology 12/07/21 19:20 Blood Culture - Preliminary Blood NEGATIVE TO DATE 12/07/21 19:25 Blood Culture - Preliminary Blood NEGATIVE TO DATE 12/07/21 20:50 MRSA Culture - Final Nose A&P Assessment and plan (1) Acute kidney injury: 51 yr old man HTN, obesity, IDDM, RT foot cellulitis 1. staph aureus bacteremia- amp and PCN resistant. -leuekocytosis and fevers persists -for I and D today -cefazolin per ID 2. 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 EMRE- likely from sepsis- note cr was high on admission and SBP was over 200. - his BP was normalized to low quickly- dropping of BP can cause EMRE -pt has septic emboli-possible that he also has septic emboli to his kidneys -pt was on pascal-2 inhibitor, aldactone, mariana-i, and diuretics prior to admission- raising his risk for EMRE -u/a 4+ gluc, 1+ ketone, 3+ blood, 5-10 rbc- check ck -low ur na noted- however, clinically not prerena; -neg ur eos -perinephric stranding on cT scan is c/w an infection -cr improving. -excellent uop -ivf as needed -ck now down to 224 3b. htn-inc hydralazine to 50 tid. would not add further beta blockers, ccb or more clonidine as HR is already 62 4. while ur ketones+, pH is 7.42/33- primary resp alkalosis and mild met acidosis 5. MRI w/ embolic CVA 6. dm care per medicine. hgba1c is 7.7 7. ck improving change ivf to lr 8. monitor bp renal dose meds seen and examined w/ RN- telehealth visit time spent 30 min Status: Acute Plan as above Attestations Medical Necessity Statement*: mssa cellulitis, emre, htn Time Spent in Patient Care: 16 - 35 minutes (>than 50% of time spent in counselling and/or direct pt care on unit) . Coding Level of Care Code Acute Shake Feeder for [facility] Fwd Diagnoses Acute kidney injury N17.9
--- NOTE | 2021-12-09 08:46 | P.OP_ITS ---
Operative Report Date of procedure: December 09, 2021 Pre-op diagnosis: Deep abscess right foot Post-op diagnosis: Deep abscess right foot Post-op findings: 25 cc of purulent drainage from abscess right foot Procedure done: Incision and drainage of deep abscess down to and including deep fascia and tendon right foot. CPT code 18121 Implants: 1 g vancomycin powder, 4 x 4 saline wet-to-dry. Specimens removed/disposition: Deep tissue cultures sent to microbiology for gram stain and culture. Pathology: None Surgeon: Tej Burgos D.P.M. Dredge Lever Operator: Jaimie Estimated blood loss: 25 11 IV fluids: 0 Urine output: See intraoperative documentation Complications: None Findings: Heavy purulence with deep abscess right dorsal foot Brief History: Patient admitted for tachycardia, KARI and sepsis, currently in the ICU. Has had persistent fever. MRI indicative of potential abscess versus phlegmon versus inflammatory fluid. On exam 12/08/2021 a palpable fluid collection was ap preciated at the right dorsal foot recommended incision and drainage. Patient is agreeable wishes to proceed. Risks include but are not limited to pain, bleeding, numbness, infection, sending infection, need for further surgical debridement, risk for amputation, will require wound care modalities and IV antibiotics. Patient is agreeable wishes to proceed. Procedure: Under mild sedation the patient was brought to the operating room and remained on the hospital bed in supine position. A timeout was performed. Anesthesia was then administered by the anesthesia service. Local anesthesia injected by myself, right ankle block was performed utilizing 20 cc of one-to-one mixture 1% lidocaine and 0.25% Marcaine plain. Well-padded pneumatic tourniquet applied to the right ankle. The right lower extremity was then scrubbed, prepped and draped utilizing normal aseptic technique. Right foot was then elevated and tourniquet inflated to 250 mmHg. Attention was directed to the dorsal lateral aspect of the right foot where a palpable fluid collection was appreciated. Linear longitudinal incision was made near the level of the third intermetatarsal space dorsal lateral aspect of the right forefoot. On incision heavy purulent drainage was appreciated total of approximately 25 cc this was expressed, flushed with saline solution and sharp debridement was performed with brown pickups and a #15 blade of devitalized epidermis, devitalized dermis, devitalized subcutaneous tissue and devitalized deep fascia and extensor tendons. Once the wound was debrided of devitalized tissue further irrigation was performed. No further purulence was expressed. Incision was approximately 8 cm in length and down to the myofascial and tendinous layer of the right dorsal lateral forefoot. 1 g of vancomycin powder was then introduced into the incision, dressing with saline wet-to-dry was performed followed by sterile 4 x 4's, ABD pad, Kerlix and Skyler wrap. Tourniquet was deflated and a prompt hyperemic response was noted to the distal digits of the right foot. Patient tolerated the procedure and anesthesia well and was transferred to the PACU with vital signs stable and vascular status intact. Following a period of postop monitoring he will be transferred back to the ICU.
--- NOTE | 2021-12-09 08:55 | ANE.PACU2 ---
Inpatient post-anesthesia follow up: Airway intact: Yes Vital signs: Temperature 99.8 F Pulse Rate 62 Respiratory Rate 20 Blood Pressure 164/101 Pulse Oximetry 97 Oxygen Delivery Me thod BiPAP Oxygen Flow Rate 4 Fraction of Inspir ed Oxygen 30 Hydration adequate: Yes Nausea and vomiting: No Pain level: 1 Mental status: Baseline
[2021-12-09 09:04] LABS: Glucose Point of Care 207 mg/dL (70-110)
--- NOTE | 2021-12-09 09:08 | SUR.OPER ---
[id number] Rafael SUAZO CRNA REMOVED BOTH IVs @ left arm. both catheters intact
[2021-12-09] MEDS: lactated ringers 1,000 ML 100 ML IV ×2 (09:27→15:20)
[2021-12-09] MEDS: insulin glargine 100 units/1 mL 15 UNIT SUBCUT ×3 (09:37→17:32)
[2021-12-09] MEDS: hyDRALAzine 25 mg Tablet 50 MG PO ×2 (09:49→21:17)
[2021-12-09] MEDS: hyDRALAzine 50 mg Tablet PO (10:00)
--- NOTE | 2021-12-09 10:26 | PC.NURSE ---
wound not visualized as to surgery this am wrapped per Dr Burgos with 4x4 vancomyin infused packing and 4x4 toppers and wrapped with mariana wrap post op this am elevated on pillow check for swelling ect
[2021-12-09] MEDS: acetaminophen-codeine 300-30mg Tablet 1 TAB PO (10:30)
--- NOTE | 2021-12-09 10:48 | PM.PN ---
Subjective Subjective: Patient underwent surgical debridement and drainage of abscess right foot this a.m., no complications. Vitals/I&O/Wt Last Vital Signs Temp 99.8 F H 12/09/21 04:00 Pulse 67 12/09/21 10:00 Resp 20 H 12/09/21 10:00 BP 179/89 12/09/21 10:00 Pulse Ox 97 12/09/21 10:00 O2 Del Method 12/09/21 04:00 O2 Flow Rate 4 12/06/21 06:00 FiO2 30 12/09/21 10:00 12/08/21 12/09/21 12/09/21 22:59 06:59 14:59 Intake Total 2250 / 2800 1450 / 4250 313.333 / 313.333 Output Total 2000 / 4400 2200 / 6600 Balance 250 / -1600 -750 / -2350 313.333 / 313.333 Weight last 48 hrs Weight 300 lb 1 oz Physical Exam Narrative: Postoperative dressings are clean, dry and intact without strikethrough bleeding. Brisk capillary refill time to the distal digits of the right lower extremity. Urinary Catheter Management: Díaz: Cath Placed During This Visit: yes Reason for Continuing Indwelling Catheter: Accurate Measurement of Urinary Output in Critically Ill Patients Urinary Catheter Date of Insertion: 12/05/21 Urinary Catheter Time of Insertion: 01:38 Data : 12/09/21 03:07 12/09/21 03:07 Micro: Microbiology 12/07/21 19:20 Blood Culture - Preliminary Blood NEGATIVE TO DATE 12/07/21 19:25 Blood Culture - Preliminary Blood NEGATIVE TO DATE 12/07/21 20:50 MRSA Culture - Final Nose A&P Assessment and plan (1) Cellulitis of foot, right: Status: Acute (2) Chronic osteomyelitis of right foot: Status: Acute (3) Diabetic peripheral neuropathy associated with type 2 diabetes mellitus: Status: Acute Plan Underwent incision and drainage right foot, encountered abscess at the myofascial layer dorsal lateral aspect of right forefoot. Heavy purulence encountered. Significant improvement postdebridement. Did not extend to bone. Incision left open for healing by secondary intention. Attestations Medical Necessity Statement*: Abscess right foot with cellulitis Coding Level of Care Code Acute Podiatric Foot And Ankle Specialist for [facility] Diagnoses Cellulitis of foot, right L03.115 Chronic osteomyelitis of right foot M86.671 Diabetic peripheral neuropathy associated with type 2 diabetes mellitus E11.42
[2021-12-09 11:26] LABS: Glucose Point of Care 227 mg/dL (70-110)
[2021-12-09] MEDS: insulin lispro 100 unit/1 mL SUBCUT ×3 (11:42→21:18)
--- NOTE | 2021-12-09 12:32 | PC.NURSE ---
blood pressure remains elevated new order noted
[2021-12-09] MEDS: cloNIDine 0.2 mg/24 hr Patch 1 PATCH TRANSDERMA (13:05)
--- NOTE | 2021-12-09 14:12 | P.PN_ITS ---
Subjective Subjective: Today morning seen post I&D. Tom purulent discharge drained during the OR. Cultures sent. Blood pressures trending up again. Patient states he is feeling better. Pain in the leg has improved. Denies any nausea vomiting, headache. T-max in last 24 hours 100.9 Fahrenheit. Urine output doc umented around 6600 last 24 hours Vitals/I&O/Wt Last Vital Signs Temp 99.8 F H 12/09/21 04:00 Pulse 92 12/09/21 13:00 Resp 23 H 12/09/21 13:00 BP 197/102 12/09/21 13:00 Pulse Ox 100 12/09/21 13:00 O2 Del Method 12/09/21 04:00 O2 Flow Rate 3 12/09/21 09:00 FiO2 30 12/09/21 14:00 12/08/21 12/09/21 12/09/21 22:59 06:59 14:59 Intake Total 2250 / 2800 1450 / 4250 813.333 / 813.333 Output Total 2000 / 4400 2200 / 6600 25 / 25 Balance 250 / -1600 -750 / -2350 788.333 / 788.333 Weight last 48 hrs Weight 136.106 kg Physical Exam Narrative: General: AO x3, no acute distress, HEENT: PERRLA, pupils bilaterally equal and reactive Chest: Normal vesicular breath sounds, no added sounds, equal good air entry bilaterally CVS: S1-S2 regular, no murmurs, no tachycardia, no gallops, no rubs Abdomen: Soft, nontender, no organomegaly, bowel sounds present Neuro: No focal deficits, no facial deformity, AO x3, power 5/5 in all limbs Extremity: Right foot swollen, erythematous, tense to touch. Changes extending over up to ankle. Superficial ulceration noted over lower part of the leg. Urinary Catheter Management: Díaz: Cath Placed During This Visit: yes Reason for Continuing Indwelling Catheter: Accurate Measurement of Urinary Output in Critically Ill Patients Urinary Catheter Date of Insertion: 12/05/21 Urinary Catheter Time of Insertion: 01:38 Data : 12/09/21 03:07 12/09/21 03:07 Micro: Microbiology 12/04/21 20:41 Blood Culture - Final Blood Staphylococcus aureus 12/07/21 19:20 Blood Culture - Preliminary Blood NEGATIVE TO DATE 12/07/21 19:25 Blood Culture - Preliminary Blood NEGATIVE TO DATE 12/07/21 20:50 MRSA Culture - Final Nose A&P Assessment and plan (1) Septicemia: Status: Acute (2) Embolic stroke: Status: Acute (3) Cellulitis of foot, right: Status: Acute (4) Sepsis: Status: Acute (5) Acute kidney injury: Status: Acute (6) Staphylococcal sepsis: Status: Acute (7) Acute ischemic multifocal multiple vascular territories stroke: Status: Acute (8) Oliguria: Status: Acute (9) Accelerated hypertension: Status: Acute (10) Resistant hypertension: Status: Acute (11) CPAP (continuous positive airway pressure) dependence: Status: Acute (12) Diabetes: Status: Chronic Qualifiers: Diabetes mellitus type: type 2 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 Sepsis: Ruled in with tachycardia, leukocytosis, target organ injury with acute kidney injury. Source right foot osteomyelitis versus cellulitis versus possible pyelonephritis. MSSA bacteremia Embolic stroke. Most likely septic. History of MSSA osteomyelitis. Appreciate culture sensitivities. Repeat blood culture from 12/06 so far negative. Switch antibiotic to cefazolin 2 g IV every 8 hourly. Given persistent fevers Case discussed with Dr. Burgos. Plan for I&D in a.m. N.p.o. after midnight. Echocardiogram discussed with Dr. Cook. Concern for infective endocarditis on mitral valve. Plan for BECKA on Friday. If blood cultures remain negative plan for PICC line placement Appreciate Dr. Ovalle's, Dr. Woodruff, Dr. Burgos's, Dr. Cook's recommendation. Uncontrolled hypertension: History of resistant hypertension: Better controlled. Patient off esmolol drip. Continue with clonidine 0.1 mg patch, hydralazine 25 mg 3 times daily. Will uptitrate as per goal. Goal blood pressure less than 140/90 mmHg with mean over 65. Will add medications as per goal blood pressure. Acute kidney injury: Could be secondary to sepsis in setting of ROMAN inhibitor and Lasix at home along with being given enalaprilat in the ER. Robust urine output. Creatinine improving. Urinalysis appreciated. Fena?0.1%?prerenal. CPK elevated Appreciate renal recommendations. Medical reconciliation done for nephrotoxic drugs.Hold off on Lasix and lisinopril. Fluid switched to Ringer lactate at 100 cc/h. Repeat BMP in evening. Strict input output charting, daily weights, Díaz catheter. Acute ischemic multifocal embolic stroke:-Chances of septic emboli. Antibiotics as above. Appreciate echocardiogram and carotid ultrasound. Continue with aspirin, statin. Rhabdomyolysis: Check prolactin to rule out subtle seizure. Fluid as above. Repeat CPK daily. Intractable nausea, vomiting: Currently controlled with zofran. TN less, lipase within normal limits. COVID-19 antigen negative. Check PCR. Stool studies if patient have diarrhea. Type 2 diabetes mellitus: Insulin sliding scale moderate dose protocol. Carb consistent cardiac diet. A1c 7.7. Continue other chronic medications. Analgesia: Tylenol, Ada as needed Glycemic control: Insulin sliding scale moderate dose protocol Nutrition: Renal nondialysis carb consistent diet CODE STATUS: Full code PUD prophylaxis: Protonix DVT prophylaxis: Heparin 5000 every 12 hourly Discharge planning: Discharge home once medically cleared. Continue care at ICU level. Guarded prognosis. Plan for the day: Continue cefazolin 2 g IV every 8 hourly. Follow-up cultures. If blood cultures remain negative for next 24 to 48 hours can plan for PICC line placement. Plan for overall 6 weeks of IV antibiotics from today?drainage of abscess which is 11/29. Case management has been alerted. Plan for BECKA in a.m. Concern for infective endocarditis on mitral valve as per TTE per Dr. Cook. Monitor urine output. Increase Ringer lactate to 125 cc/h. Plan for almost equal ins and out within next 24 hours. Monitor BMP daily. More aggressive blood pressure control. Increase clonidine to 0.2 mg patch, increase hydralazine to 50 mg 3 times daily. Restart home dose of nifedipine. Will uptitrate with goals of blood pressure less than 140/90 mmHg. Patient will most likely require home health for wound care and IV antibiotics. Working with physical therapy. Keep Díaz catheter. Care discussed in detail with patient's sister Ms. Barbosa. All the questions were answered. Attestations Medical Necessity Statement*: Requires further hospitalization for management of MSSA bacteremia secondary to purulent cellulitis, possibility of infective endocarditis, management of multifocal septic embolic stroke, rhabdomyolysis, acute kidney injury in prerenal phase Critical Care Time: The high probability of a clinically significant, sudden or life threatening deterioration of the patient's [cardiac, renal, ID, neurological] system(s) required my full and direct attention, intervention and personal management. The critical care time is as shown. This time is in additi on to time spent performing any reported procedures but includes the following: [x] Data and vital sign review and interpretation [x] Patient assessment, examination and intervention [x] Documentation [x] Medication orders and management Critical Care Time (min): 90 Coding Level of Care Code Acute Senior Reliability Engineer for g Fwd Diagnoses Septicemia A41.9 Embolic stroke I63.9 Cellulitis of foot, right L03.115 Sepsis A41.9 Acute kidney injury N17.9 Staphylococcal sepsis A41.2 Acute ischemic multifocal multiple vascular territories stroke I63.89 Oliguria R34 Accelerated hypertension I10 Resistant hypertension I10 CPAP (continuous positive airway pressure) dependence Z99.89 Diabetes E11.9 Diabetes mellitus type: type 2 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
[2021-12-09] MEDS: NIFEdipine ER (24 hr) 30 mg Tablet 60 MG PO (14:29)
[2021-12-09 17:26] LABS: Glucose Point of Care 197 mg/dL (70-110)
[2021-12-09] MEDS: ferrous gluconate 324 mg Tablet PO (17:31)
[2021-12-09] MEDS: docusate sodium 100 mg Capsule PO (17:31)
[2021-12-09] MEDS: pantoprazole 40 mg SDV IVP (17:33)
[2021-12-09 21:09] LABS: Glucose Point of Care 248 mg/dL (70-110)
[2021-12-09] MEDS: heparin 5,000 unit/mL INJ 1 mL 5000 UNIT SUBCUT (21:18)
[2021-12-09] MEDS: lactated ringers 1,000 ML 125 ML IV (22:58)
--- NOTE | 2021-12-09 23:26 | PM.PN ---
Subjective Subjective: Infectious Disease progress note Interim exam on 12/08 by podiatry was concerning for development of abscess now s/p incision and drainage right foot,OR findings with abscess in the myofascial layer dorsal lateral aspect of right forefoot.? Heavy purulence encountered.? Changes did not extend to bone.? Incision left open for healing by secondary intention. T max 100.9F over last 24 hrs Leukocytsois remains at ~15 Blood cx negative since 12/06 cr improving, urine output ~4L BECKA pending Medications: Reviewed: Yes Medication Review Details: Current Medications Acetaminophen (Acetaminophen 325 Mg Tablet) 650 mg PO Q6H PRN PRN Reason: Mild/Mod Pain Or Temp >/= 101 Last Admin: 12/09/21 00:33 Dose: 650 mg Aspirin (Aspirin 81 Mg Ec Tablet) 81 mg PO DAILY [facility] Last Admin: 12/08/21 08:53 Dose: 81 mg Atorvastatin Calcium (Atorvastatin 40 Mg Tablet) 40 mg PO DAILY [facility] Last Admin: 12/08/21 08:53 Dose: 40 mg Calcium Carbonate (Calcium Carbonate 500 Mg Chew Tablet) 1,000 mg PO Q4H PRN PRN Reason: DYSPEPSI Clonidine HCl (Clonidine 0.1 Mg/24 Hr Patch) 1 patch TRANSDERMA Q7D [facility] Last Admin: 12/07/21 09:25 Dose: 1 patch Dextrose (Dextrose 50% Syringe 50 Ml) 25 ml IVP ONCE PRN; Protocol PRN Reason: hypoglycemia protocol Dextrose (Dextrose 50% Syringe 50 Ml) 50 ml IVP PRN PRN; Protocol PRN Reason: hypoglycemia protocol Docusate Sodium (Docusate Sodium 100 Mg Capsule) 100 mg PO BID [facility] Last Admin: 12/08/21 17:23 Dose: 100 mg Ferrous Gluconate (Ferrous Gluconate 324 Mg Tablet) 324 mg PO BIDWM [facility] Last Admin: 12/08/21 17:24 Dose: 324 mg Glucagon (Glucagon 1 Mg/Ml Inj 1 Ml) 1 mg IM ONCE PRN; Protocol PRN Reason: Adult Acute Hypoglycemia Prot. Heparin Sodium (Porcine) (Heparin 5,000 Unit/Ml Inj 1 Ml) 5,000 unit SUBCUT Q12H [facility] Last Admin: 12/08/21 20:48 Dose: 5,000 unit Hydralazine HCl (Hydralazine 25 Mg Tablet) 25 mg PO TID [facility] Last Admin: 12/08/21 20:47 Dose: 25 mg Dextrose (D5w) 500 mls @ 100 mls/hr IV ONCE PRN; Protocol PRN Reason: Adult Acute Hypoglycemia Prot Cefazolin Sodium 2,000 mg/ (Sodium Chloride) 50 mls @ 100 mls/hr IV Q8H [facility]; Protocol Last Infusion: 12/09/21 08:28 Dose: Infused Lactated Ringer's (Lactated Ringers) 1,000 mls @ 100 mls/hr IV .Q10H [facility] Last Admin: 12/08/21 20:39 Dose: 100 mls/hr Insulin Glargine (Insulin Glargine 100 Units/1 Ml) 15 unit SUBCUT BID [facility] Last Admin: 12/08/21 17:25 Dose: 15 unit Insulin Human Lispro (Insulin Lispro 100 Unit/1 Ml) 0 unit SUBCUT WM&BEDTIME [facility]ON[facility]; Protocol Last Admin: 12/08/21 20:48 Dose: 12 unit Magnesium Hydroxide (Magnesium Hydroxide 30 Ml Udc) 30 ml PO DAILY PRN; Protocol PRN Reason: Constipation (see protocol) Morphine Sulfate (Morphine 4 Mg/Ml Sdv 1 Ml) 2 mg IVP Q4H PRN PRN Reason: SEVERE PAIN Nifedipine (Nifedipine Er (24 Hr) 30 Mg Tablet) 60 mg PO DAILY [facility] Last Admin: 12/05/21 08:50 Dose: 60 mg Ondansetron HCl (Ondansetron 2 Mg/Ml Sdv 2 Ml) 4 mg IVP Q6H PRN PRN Reason: NAUSEA AND VOMITING Pantoprazole Sodium (Pantoprazole 40 Mg Sdv) 40 mg IVP Q24H [facility] Last Admin: 12/08/21 20:39 Dose: 40 mg Vitals/I&O/Wt Last Vital Signs Temp 98.5 F 12/09/21 21:30 Pulse 79 12/09/21 21:30 Resp 23 H 12/09/21 21:30 BP 167/103 12/09/21 21:30 Pulse Ox 77 L 12/09/21 17:30 O2 Del Method 12/09/21 04:00 O2 Flow Rate 3 12/09/21 09:00 FiO2 30 12/09/21 16:00 12/09/21 12/09/21 12/10/21 14:59 22:59 06:59 Intake Total 813.333 / 545.782 3327.833 / 2664.166 Output Total 1999 Balance 788.333 / 788.333 -149.167 / 639.166 Weight last 48 hrs Weight 136.106 kg Physical Exam Narrative: General: No acute distress, AO x3 HEENT: PERRLA, pupils bilaterally equal and reactive, pallors not present Chest: Normal vesicular breath sounds, no added sounds, equal good air entry bilaterally CVS: S1-S2 regular, no murmurs, no tachycardia, no gallops, no rubs Abdomen: Soft, nontender, no organomegaly, bowel sounds present Neuro: No focal deficits, no facial deformity, AO x3, power 5/5 in all limbs Extremities: Surgical dressing over right foot, not opened for exam Urinary Catheter Management: Díaz: Cath Placed During This Visit: yes Reason for Continuing Indwelling Catheter: Accurate Measurement of Urinary Output in Critically Ill Patients Urinary Catheter Date of Insertion: 12/05/21 Urinary Catheter Time of Insertion: 01:38 Data : 12/10/21 03:12 12/10/21 03:12 Micro: Microbiology 12/04/21 20:41 Blood Culture - Final Blood NO GROWTH AFTER 5 DAYS 12/09/21 08:33 Gram Stain - Final Foot - Right 12/04/21 20:41 Blood Culture - Final Blood Staphylococcus aureus- MSSA 12/07/21 19:20 Blood Culture - Preliminary Blood NEGATIVE TO DATE 12/07/21 19:25 Blood Culture - Preliminary Blood NEGATIVE TO DATE 12/09: Abscess cx : Gram stain with GPC and GPR A&P Assessment and plan (1) Septicemia: Status: Acute (2) Embolic stroke: Status: Acute (3) Cellulitis of foot, right: Status: Acute (4) Sepsis: Status: Acute (5) Acute kidney injury: Status: Acute Plan 51-year-old male with a past medical history of MSSA osteomyelitis of the right foot currently admitted with MSSA septicemia complicated by septic embolization to the STOGY ROLLER and acute kidney injury. # MSSA septicemia complicated by septic embolization to STOGY ROLLER and KARI as a result of sepsis vs possible embolization -Last positive blood cx 12/04 -Blood cx from 12/06 thus far negative. -S/p I&D of right foot today, anticipate fever, luekocytosis to improve and continued clinical improvement with source control . -Abscess cx pending -Concern for infective endocarditis given septic embolization, suspicious MV thickening on TTE. BECKA pending, suspect duration of bacteremia may have been more subacute and pre dated 12/04. -At a minimum recommend 6 weeks of iv abx for complicated MSSA septicemia (12/09-01/20), presumed endocarditis. -Cefazolin 2g iv q8h recommended for MSSA. will follow Attestations Medical Necessity Statement*: per admitting Coding Level of Care Code Acute Marketing Program Coordinator for [facility] Fwd Diagnoses Septicemia A41.9 Embolic stroke I63.9 Cellulitis of foot, right L03.115 Sepsis A41.9 Acute kidney injury N17.9
[2021-12-10] VITALS (81 sets, daily range): BP systolic 137–234; BP diastolic 64–114; PULSE 60–126; RESP 12–26; TEMP 36.7–37.5; O2SAT 81–100; BMI 44.0
[2021-12-10 03:54] LABS: Basophils # 0.1 10^3/uL (0.0-0.1); Basophils % 0.6 %; Eosinophils # 0.3 10^3/uL (0.0-0.8); Hematocrit 32.1 % (42.0-52.0); Hemoglobin 10.8 g/dL (11.7-16.6); Lymphocytes # 1.6 10^3/uL (0.8-4.8); Lymphocytes % 14.8 %; Mean Corpuscular HGB Conc 33.6 g/dL (30.0-36.0); Mean Corpuscular Hemoglobin 29.1 pg (28.0-34.0); Mean Corpuscular Volume 86.5 fl (80-94); Mean Platelet Volume 10.2 fL (7.4-10.4); Monocytes # 0.8 10^3/uL (0.2-0.9); Monocytes % 7.7 %; Neutrophils # 7.76 10^3/uL (1.8-7.7); Neutrophils % 71.4 %; Nucleated Red Blood Cells % 0 %; Platelet Count 302 10^3/cmm (130-400); Red Blood Count 3.71 10^6/uL (4.1-5.3); Red Cell Distribution Width 13.8 % (12.1-15.1); White Blood Count 10.8 10^3/uL (4.0-10.0)
[2021-12-10 04:20] LABS: Alanine Aminotransferase 37 U/L (0-41); Albumin Level 2.6 g/dL (3.5-5.2); Alkaline Phosphatase 148 IU/L (40-130); Anion Gap 15.9 (5-19); Aspartate Amino Transferase 49 U/L (0-40); Blood Urea Nitrogen 32 mg/dL (6-20); Calcium 8.5 mg/dL (8.5-10.5); Carbon Dioxide 23 mmol/L (22-29); Chloride 103 mmol/L (98-107); Creatine Phosphokinase 101 U/L (39-308); Globulin 3.7 g/dL (1.3-4.6); Glomerular Filtration Rate 39.8 mL/min (90-130); Glucose 266 mg/dL (65-115); Magnesium 1.7 mg/dL (1.7-2.3); Osmolality Calculated 302 mOsm/kg (285-295); Phosphorus 2.9 mg/dL (2.5-4.5); Potassium 3.9 mmol/L (3.5-5.1); Sodium 138 mmol/L (136-145); Total Bilirubin 0.2 mg/dL (0.15-1.2); Total Protein 6.3 g/dL (6.6-8.7)
--- NOTE | 2021-12-10 06:34 | P.PN_ITS ---
Subjective Subjective: Patient seen bedside, 2 days status post I&D to the right foot. Denies any pain in the right lower extremity. Denies subjective fevers or chills. Patient denies any subjective nausea, vomiting, fever, chills, shortness of breath or chest pain. Vitals/I&O/Wt Last Vital Signs Temp 99.5 F 12/10/21 04:00 Pulse 65 12/10/21 06:00 Resp 17 12/10/21 06:00 BP 162/76 12/10/21 06:00 Pulse Ox 94 12/10/21 06:00 O2 Del Method 12/10/21 04:00 O2 Flow Rate 3 12/09/21 09:00 FiO2 30 12/10/21 06:00 12/09/21 12/09/21 12/10/21 14:59 22:59 06:59 Intake Total 813.333 / 736.151 1170.833 / 2664.166 50 / 2714.166 Output Total 1999 Balance 788.333 / 788.333 -149.167 / 639.166 50 / 689.166 Weight last 48 hrs Weight 298 lb 2 oz Weight 300 lb 1 oz Physical Exam Narrative: Patient is alert and oriented ?3 and in no acute distress.? The f ollowing is a focused bilateral lower extremity exam. VASCULAR: Dorsalis pedis palpable +2 bilaterally, posterior tibial arteries palpable +2 bilaterally.? Capillary refill time less than 3 seconds to the distal hallux bilaterally. Calf is supple and nontender proximally and distally.? Edema to the right foot and leg. NEUROLOGICAL: Protective sensation intact 0/10 sites, tested with [place] ein monofilament to bilateral feet. DERMATOLOGICAL: Decreased erythema and decrease in edema to the right lower extremity. Surgical wound from abscess drainage 8 cm in length, 2 cm in width exposed to tendon. Scant purulence expressed. Overall improved appearance with increased granular tissue. MUSCULOSKELETAL: No pain with posterior calf squeeze bilaterally. Muscle strength 5 out of 5 in all three cardinal planes to the right foot and ankle. Urinary Catheter Management: Díaz: Cath Placed During This Visit: yes Reason for Continuing Indwelling Catheter: Accurate Measurement of Urinary Output in Critically Ill Patients Urinary Catheter Date of Insertion: 12/05/21 Urinary Catheter Time of Insertion: 01:38 Data : 12/11/21 03:01 12/11/21 03:01 Micro: Microbiology 12/04/21 20:41 Blood Culture - Final Blood NO GROWTH AFTER 5 DAYS 12/09/21 08:33 Gram Stain - Final Foot - Right 12/04/21 20:41 Blood Culture - Final Blood Staphylococcus aureus A&P Assessment and plan (1) Cellulitis of foot, right: Status: Acute (2) Chronic osteomyelitis of right foot: Pleasant 51-year-old diabetic male admitted to the ICU for tachycardia and malaise. Presented to podiatry clinic on 12/04/2021, tachycardia on triage and directed to emergency department and subsequently admitted. He reports a 3 to 4-day history of feeling weak and lack of appetite. Also 3 to 4-day history of increased redness and swelling to his right foot. History of impressive collette betic foot ulcer with osteomyelitis to the great toe and first metatarsal of the right foot that was managed both surgically and medically in 2020 treatments included extensive wound care, hyperbarics, surgical debridement and partial amputation combined with IV vancomycin through PICC line for greater than 6 weeks. Patient eventually went on to heal his wound and return to diabetic shoe gear and decreased to daily activities. Status: Acute (3) Diabetic peripheral neuropathy associated with type 2 diabetes mellitus: Status: Acute Plan Patient is febrile with leukocytosis, ESR 68. X-ray taken 12/04/2021 shows stable postoperative changes with resection of the base of the proximal phalanx and resection of the head of the first metatarsal. Comparison view that was taken 07/10/2021 actually shows improvement of disuse osteopenia with small erosive changes at the distal phalanx has now resolved. Osteotomy site through the base of the proximal phalanx and at the first metatarsal are well corticated without further osseous destruction. Bony fragments within the interspace are well corticated have smooth rounded appearance without resorption or periosteal reaction. CT scan not indicative of osteomyelitis or drainable abscess. MRI is negative for acute osteomyelitis. Fluid collection to the dorsal lateral right foot. Interim update 12/11/2021 2-day status post incision and drainage of abscess right foot date of operation 12/09/2021 Right foot improving with decreased erythema, decreased edema, showing some new granulation within the wound bed appearing more viable Will continue twice daily wet-to-dry Weightbearing okay Elevate right foot while resting Podiatry will follow Attestations 2 Medical Necessity Statement*: Cellulitis with abscess right lower extremity Coding Level of Care Code Acute Profile Grinder for [facility] Fwd Diagnoses Cellulitis of foot, right L03.115 Chronic osteomyelitis of right foot M86.671 Diabetic peripheral neuropathy associated with type 2 diabetes mellitus E11.42
[2021-12-10 07:37] LABS: Glucose Point of Care 217 mg/dL (70-110)
--- NOTE | 2021-12-10 07:49 | PM.PN ---
Subjective Subjective: feels better. has a large abdomen. no n/v/f/kaci/d Medications: Reviewed: Yes Medication Review Details: Current Medications Acetaminophen (Acetaminophen 325 Mg Tablet) 650 mg PO Q6H PRN PRN Reason: Mild/Mod Pain Or Temp >/= 101 Last Admin: 12/09/21 00:33 Dose: 650 mg Acetaminophen/Codeine Phosphate (Acetaminophen-Codeine 300-30mg Tablet) 1 tab PO Q4H PRN PRN Reason: MODERATE PAIN Last Admin: 12/09/21 10:30 Dose: 1 tab Aspirin (Aspirin 81 Mg Ec Tablet) 81 mg PO DAILY [facility] Last Admin: 12/08/21 08:53 Dose: 81 mg Atorvastatin Calcium (Atorvastatin 40 Mg Tablet) 40 mg PO DAILY [facility] Last Admin: 12/08/21 08:53 Dose: 40 mg Calcium Carbonate (Calcium Carbonate 500 Mg Chew Tablet) 1,000 mg PO Q4H PRN PRN Reason: DYSPEPSI Clonidine HCl (Clonidine 0.1 Mg/24 Hr Patch) 1 patch TRANSDERMA Q7D [facility] Last Admin: 12/07/21 09:25 Dose: 1 patch Clonidine HCl (Clonidine 0.2 Mg/24 Hr Patch) 1 patch TRANSDERMA Q7D [facility] Last Admin: 12/09/21 13:05 Dose: 1 patch Dextrose (Dextrose 50% Syringe 50 Ml) 25 ml IVP ONCE PRN; Protocol PRN Reason: hypoglycemia protocol Dextrose (Dextrose 50% Syringe 50 Ml) 50 ml IVP PRN PRN; Protocol PRN Reason: hypoglycemia protocol Docusate Sodium (Docusate Sodium 100 Mg Capsule) 100 mg PO BID [facility] Last Admin: 12/09/21 17:31 Dose: 100 mg Ferrous Gluconate (Ferrous Gluconate 324 Mg Tablet) 324 mg PO BIDWM [facility] Last Admin: 12/09/21 17:31 Dose: 324 mg Glucagon (Glucagon 1 Mg/Ml Inj 1 Ml) 1 mg IM ONCE PRN; Protocol PRN Reason: Adult Acute Hypoglycemia Prot. Heparin Sodium (Porcine) (Heparin 5,000 Unit/Ml Inj 1 Ml) 5,000 unit SUBCUT Q12H [facility] Last Admin: 12/09/21 21:18 Dose: 5,000 unit Hydralazine HCl (Hydralazine 25 Mg Tablet) 50 mg PO TID [facility] Last Admin: 12/09/21 21:17 Dose: 50 mg Dextrose (D5w) 500 mls @ 100 mls/hr IV ONCE PRN; Protocol PRN Reason: Adult Acute Hypoglycemia Prot Cefazolin Sodium 2,000 mg/ (Sodium Chloride) 50 mls @ 100 mls/hr IV Q8H [facility]; Protocol Last Infusion: 12/09/21 23:31 Dose: Infused Lactated Ringer's (Lactated Ringers) 1,000 mls @ 125 mls/hr IV .Q8H [facility] Last Admin: 12/09/21 22:58 Dose: 125 mls/hr Insulin Glargine (Insulin Glargine 100 Units/1 Ml) 15 unit SUBCUT BID [facility] Last Admin: 12/09/21 17:32 Dose: 15 unit Insulin Human Lispro (Insulin Lispro 100 Unit/1 Ml) 0 unit SUBCUT WM&BEDTIME [facility]; Protocol Last Admin: 12/09/21 21:18 Dose: 10 unit Magnesium Hydroxide (Magnesium Hydroxide 30 Ml Udc) 30 ml PO DAILY PRN; Protocol PRN Reason: Constipation (see protocol) Morphine Sulfate (Morphine 4 Mg/Ml Sdv 1 Ml) 2 mg IVP Q4H PRN PRN Reason: SEVERE PAIN Nifedipine (Nifedipine Er (24 Hr) 30 Mg Tablet) 60 mg PO DAILY [facility] Last Admin: 12/09/21 14:29 Dose: 60 mg Ondansetron HCl (Ondansetron 2 Mg/Ml Sdv 2 Ml) 4 mg IVP Q6H PRN PRN Reason: NAUSEA AND VOMITING Pantoprazole Sodium (Pantoprazole 40 Mg Sdv) 40 mg IVP Q24H [facility] Last Admin: 12/09/21 17:33 Dose: 40 mg Vitals/I&O/Wt Last Vital Signs Temp 99.5 F 12/10/21 04:00 Pulse 61 12/10/21 06:00 Resp 17 12/10/21 06:00 BP 162/76 12/10/21 06:00 Pulse Ox 94 12/10/21 06:00 O2 Del Method 12/10/21 04:00 O2 Flow Rate 3 12/09/21 09:00 FiO2 30 12/10/21 06:00 12/09/21 12/10/21 12/10/21 22:59 06:59 14:59 Intake Total 3970.833 / 2664.166 350 / 3014.166 Output Total 1999 3100 / 5125 Balance -149.167 / 639.166 -2750 / -2110.834 Weight last 48 hrs Weight 135.227 kg Weight 136.106 kg Physical Exam Narrative: comfortable in bed, NARD vs noted - fevers noted heent- nc/at, eomi, anicteric neck supple lungs clear b/l heart reg abd soft, nt, +BS, distended ext b/l edema dec, rt foot warm, tender neuro- a,a, ox 3 Urinary Catheter Management: Díaz: Cath Placed During This Visit: yes Reason for Continuing Indwelling Catheter: Accurate Measurement of Urinary Output in Critically Ill Patients Urinary Catheter Date of Insertion: 12/05/21 Urinary Catheter Time of Insertion: 01:38 Data : 12/10/21 03:12 12/10/21 03:12 Micro: Microbiology 12/04/21 20:41 Blood Culture - Final Blood NO GROWTH AFTER 5 DAYS 12/09/21 08:33 Gram Stain - Final Foot - Right 12/04/21 20:41 Blood Culture - Final Blood Staphylococcus aureus A&P Assessment and plan (1) Acute kidney injury: 51 yr old man HTN, obesity, IDDM, RT foot cellulitis 1. staph aureus bacteremia- amp and PCN resistant. -leuekocytosis and fevers persists -s/p I and D 12/09. for BECKA -cefazolin per ID 2. 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 KARI- likely from sepsis- note cr was high on admission and SBP was over 200. - his BP was normalized to low quickly- dropping of BP can cause KARI -pt has septic emboli-possible that he also has septic emboli to his kidneys -pt was on pascal-2 inhibitor, aldactone, mariana-i, and diuretics prior to admission- raising his risk for KARI -u/a 4+ gluc, 1+ ketone, 3+ blood, 5-10 rbc- check ck -low ur na noted- however, clinically not prerena; -neg ur eos -perinephric stranding on cT scan is c/w an infection -cr improving. -excellent uop -ck now down to 224 3b. htn-add lasix 4. while ur ketones+, pH is 7.42/33- primary resp alkalosis and mild met acidosis 5. MRI w/ embolic CVA 6. dm care per medicine. hgba1c is 7.7 7. ck improving renal dose meds seen and examined w/ RN- telehealth visit time spent 30 min Status: Acute Plan as above Attestations Medical Necessity Statement*: sepsis, bacteremia, kari, ckd Time Spent in Patient Care: 16 - 35 minutes (>than 50% of time spent in counselling and/or direct pt care on unit). Coding Level of Care Code Acute Saw Maker for [facility] [employer] Diagnoses Acute kidney injury N17.9
[2021-12-10] MEDS: aspirin 81 mg EC Tablet PO (08:21)
[2021-12-10] MEDS: atorvastatin 40 mg Tablet PO (08:22)
[2021-12-10] MEDS: ferrous gluconate 324 mg Tablet PO ×2 (08:22→17:49)
[2021-12-10] MEDS: hyDRALAzine 25 mg Tablet 50 MG PO (08:22)
[2021-12-10] MEDS: NIFEdipine ER (24 hr) 30 mg Tablet 60 MG PO (08:22)
[2021-12-10] MEDS: heparin 5,000 unit/mL INJ 1 mL 5000 UNIT SUBCUT ×2 (08:26→21:24)
[2021-12-10] MEDS: docusate sodium 100 mg Capsule PO ×2 (08:26→17:49)
[2021-12-10] MEDS: insulin glargine 100 units/1 mL 15 UNIT SUBCUT (08:27)
[2021-12-10] MEDS: FUROsemide 10 mg/mL SDV 4mL 40 MG IVP (08:28)
[2021-12-10] MEDS: lactated ringers 1,000 ML 125 ML IV ×2 (08:42→17:19)
[2021-12-10] MEDS: insulin lispro 100 unit/1 mL SUBCUT ×4 (09:14→21:24)
[2021-12-10] MEDS: ceFAZolin 2,000 MG in sodium chloride 0.9% (plus) 50 ML 100 MG IV ×2 (09:17→15:57)
[2021-12-10 11:12] LABS: Glucose Point of Care 200 mg/dL (70-110)
--- NOTE | 2021-12-10 11:27 | PC.NURSE ---
High BP BP on monitor @1115 was 196/101. Repositioned BP cuff to lower arm and retook BP @1120, 166/94. Reported to Dr. Espinoza. No new orders at this time and will continue with hydralizine order at 1500.
--- NOTE | 2021-12-10 12:46 | PM.PN ---
Subjective Subjective: Patient was seen and examined this morning, overall he is doing better. Noted T-max: 100.9. BUN and serum creatinine is improving. Medications: Reviewed: Yes Medication Review Details: Generic Name Dose Route Start Last Admin Trade Name Freq PRN Reason Stop Dose Admin Acetaminophen 650 mg 12/04/21 20:03 12/09/21 00:33 Acetaminophen 32 5 Mg Tablet PO 650 mg Q6H PRN Administration Mild/Mod Pain Or Temp >/= 101 Acetaminophen/Code ine Phosphate 1 tab 12/09/21 09:59 12/09/21 10:30 Acetaminophen-Co deine 300-30mg Tab let PO 1 tab Q4H PRN Administration MODERATE PAIN Aspirin 81 mg 12/05/21 09:00 12/10/21 08:21 Aspirin 81 Mg Ec Tablet PO 81 mg DAILY SONIA Administration Atorvastatin Calci um 40 mg 12/05/21 09:00 12/10/21 08:22 Atorvastatin 40 Mg Tablet PO 40 mg DAILY SONIA Administration Clonidine HCl 1 patch 12/07/21 09:30 12/07/21 09:25 Clonidine 0.1 Mg /24 Hr Patch TRANSDERMA 1 patch Q7D SONIA Administration Clonidine HCl 1 patch 12/09/21 12:30 12/09/21 13:05 Clonidine 0.2 Mg /24 Hr Patch TRANSDERMA 1 patch Q7D SONIA Administration Docusate Sodium 100 mg 12/05/21 09:00 12/10/21 08:26 Docusate Sodium 100 Mg Capsule PO 100 mg BID SONIA Administration Ferrous Gluconate 324 mg 12/05/21 08:00 12/10/21 08:22 Ferrous Gluconat e 324 Mg Tablet PO 324 mg BIDWM SONIA Administration Heparin Sodium (Po rcine) 5,000 unit 12/04/21 21:00 12/10/21 08:26 Heparin 5,000 Un it/Ml Inj 1 Ml SUBCUT 5,000 unit Q12H [facility] Administration Cefazolin Sodium 2 ,000 mg/ 50 mls @ 100 mls/ hr 12/08/21 08:00 12/10/21 09:50 Sodium Chloride IV Infused Q8H [facility] Infusion Protocol Lactated Ringer's 1,000 mls @ 125 m ls/hr 12/08/21 08:15 12/10/21 08:42 Lactated Ringers IV 125 mls/hr .Q8H [facility] Administration Insulin Glargine 15 unit 12/08/21 18:00 12/10/21 08:27 Insulin Glargine 100 Units/1 Ml SUBCUT 15 unit BID [facility]ON[facility] Administration Insulin Human Lisp ro 0 unit 12/04/21 21:00 12/10/21 12:28 Insulin Lispro 1 00 Unit/1 Ml SUBCUT 8 unit WM&BEDTIME [facility]ON[facility] Administration Protocol Nifedipine 60 mg 12/09/21 14:15 12/10/21 08:22 Nifedipine Er (2 4 Hr) 30 Mg Tablet PO 60 mg DAILY [facility] Administration Pantoprazole Sodiu m 40 mg 12/04/21 18:31 12/09/21 17:33 Pantoprazole 40 Mg Sdv IVP 40 mg Q24H [facility] Administration Vitals/I&O/Wt Last Vital Signs Temp 98.1 F 12/10/21 12:30 Pulse 80 12/10/21 12:30 Resp 16 12/10/21 12:30 BP 176/96 12/10/21 12:30 Pulse Ox 96 12/10/21 12:15 O2 Del Method 12/10/21 12:15 O2 Flow Rate 3 12/09/21 09:00 FiO2 30 12/10/21 06:00 12/09/21 12/10/21 12/10/21 22:59 06:59 14:59 Intake Total 1850.833 / 2664.166 1350 / 4014.166 450 / 450 Output Total 1999 3100 / 5125 900 / 900 Balance -149.167 / 639.166 -1750 / -1110.834 -450 / -450 Weight last 48 hrs Weight 135.227 kg Weight 136.106 kg Physical Exam Const: COMMON NORMALS: patient oriented x3 HENMT: COMMON NORMALS: normocephalic, atraumatic and hearing grossly normal bilaterally HEAD & SCALP: normocephalic and atraumatic Resp: COMMON NORMALS: clear to auscultation bilaterally AUSCULTATION: clear to auscultation bilaterally Cardio: COMMON NORMALS: regular rate, regular rhythm, S1 normal heart sound present, S2 normal heart sound present, No gallops present (Cardio), No murmurs present (Cardio), No rub (Cardio) and Peripheral pulses 2+ throughout RATE: regular rate RHYTHM: regular rhythm HEART SOUNDS: S1 normal heart sound present and S2 normal heart sound present PERIPHERAL PULSES: Peripheral pulses 2+ throughout GI: COMMON NORMALS: Normal to inspection, nondistended, normoactive bowel sounds present, Soft to palpation, non-tender, No hepatosplenomegaly present and no masses AUSCULTATION: Yes normoactive bowel sounds PALPATION: Yes Soft to palpation and Yes No hepatosplenomegaly present RECTAL EXAM: Yes deferred Extremity: COMMON NORMALS: no clubbing, cyanosis or edema and no pedal edema Neuro: COMMON NORMALS: patient oriented x3 Urinary Catheter Management: Díaz: Cath Placed During This Visit: yes Reason for Continuing Indwelling Catheter: Accurate Measurement of Urinary Output in Critically Ill Patients Urinary Catheter Date of Insertion: 12/05/21 Urinary Catheter Time of Insertion: 01:38 Data : 12/10/21 03:12 12/10/21 03:12 Micro: Microbiology 12/09/21 08:33 Gram Stain - Final Foot - Right Tissue Culture - Preliminary 12/04/21 20:41 Blood Culture - Final Blood NO GROWTH AFTER 5 DAYS 12/04/21 20:41 Blood Culture - Final Blood Staphylococcus aureus A&P Assessment and plan (1) Septicemia: Status: Acute (2) Embolic stroke: Status: Acute (3) Cellulitis of foot, right: Status: Acute (4) Sepsis: Status: Acute (5) Acute kidney injury: Status: Acute Plan 51-year-old with past medical history of hypertension diabetes chronic osteomyelitis of the right foot Initially sent to ER from podiatry clinic for tachycardia. Currently is being managed for. Assessment: Sepsis secondary to right foot chronic osteomyelitis/cellulitis KARI Acute embolic stroke: Presumed to be septic embolization. Diabetes Hypertension Plan: Blood culture: MSSA CT foot RT wo con: No definite evidence for active osteomyelitis. Resection of the mid and distal 1st metatarsal. Probable cellulitis and ulceration in the medial great toe and in the region of the 1st metatarsophalangeal joint. Subcutaneous soft tissue edema/cellulitis in the dorsal foot. MR foot RT wo con: Diffuse cellulitis with soft tissue edema worse involving the dorsal midfoot soft tissues overlying the tarsal bones and proximal metatarsals.Lobulated T2 hyperintense fluid collection with septations overlying the dorsal aspect of the midfoot extending laterally. This extends to the dorsal intertarsal soft tissues with surrounding cellulitis. Findings suspicious for phlegmon/abscess. Some of this may represent chronic inflammatory fluid.No definite evidence of acute osteomyelitis. CT head wo con:No acute intracranial abnormality demonstrated. CT abdomen pelvis wo con:No renal obstruction. MR head wo con: Scattered punctate infarcts bilaterally, compatible with an embolic etiology. CV carotid duplex BI: No flow-limiting stenosis. 2D Echo : Normal left ventricular size and systolic function, EF 57 %. Moderate left ventricular hypertrophy. Grade II/IV diastolic?dysfunction, moderately elevated filling pressures. ?Mildly increased left atrial size. Thickened mitral valve. Trace mitral valve regurgitation.?Thickened aortic valve. Trace aortic valve regurgitation. BECKA: Plan: S/P I&D of the right foot. Last blood culture drawn on has been negative so far Follow abscess culture Currently on cefazolin IV. Plan is to continue for 6 weeks. PICC line will be placed prior to discharge. Continue aspirin and statin Continue LR Monitor BMP Avoid nephrotoxic's Continue nifedipine, clonidine, hydralazine. Anticoagulation has been avoided to prevent hemorrhagic transformation of septic emboli. Continue Lantus, sliding's insulin. On heparin for DVT prophylaxis CODE STATUS: Full code Attestations Medical Necessity Statement*: Patient is still in hospital for management of sepsis awaiting BECKA, to rule out infective endocarditis. Coding Level of Care Code Acute Machine Pecan Picker for [facility] Fwd Exam Detailed Diagnoses Septicemia A41.9 Embolic stroke I63.9 Cellulitis of foot, right L03.115 Sepsis A41.9 Acute kidney injury N17.9
[2021-12-10] MEDS: hyDRALAzine 50 mg Tablet PO ×2 (14:05→21:24)
[2021-12-10] MEDS: acetaminophen-codeine 300-30mg Tablet 1 TAB PO (15:18)
[2021-12-10 17:17] LABS: Glucose Point of Care 227 mg/dL (70-110)
[2021-12-10] MEDS: NIFEdipine ER (24 hr) 30 mg Tablet PO (17:22)
--- NOTE | 2021-12-10 18:23 | PC.NURSE ---
Shift Summary: Pt has been up to chair for most of the day. Pt has had visitors at bedside throughout the day. Multiple episodes of high BP noted, Dr. Espinoza notified throughout the day. Tolerating right foot pain well. Dressing change to right foot @1820, small amount of sanguineous drainage noted, pedal pulses palpable, edematous. No fevers throughout my shift.
--- NOTE | 2021-12-10 19:04 | P.CONIM_ITS ---
Providers/Reason For Consult Consulting Physician/Specialty*: ANABELL Harp MD/cardiology Reason for Consult*: MSSA sepsis, rule out endocarditis Requesting Physician: Dr. Macias Attending Physician: Praneeth Espinoza MD Primary Care Provider: DAVID Pack History of Present Illness History of Present Illness Roney Anthony is a 51 year old male with a history of hypertension, type 2 diabetes, sleep apnea, chronic osteomyelitis of the right foot, is admitted to the hospital with complaints of fever, chills and tachycardia. He is diagnosed with MSSA sepsis. He also was found to have septic embolization by MRI of the head, showing multiple punctate areas of infarcts bilaterally. Cardiology consult is requested to perform a BECKA to rule out any endocarditis. Patient has no previous history for any valvular heart disease. No history for endocarditis. No history of her IV drug abuse, smoking abuse or any other substance abuse. He is being treated for osteomyelitis of the right foot since of April of last year. He was found to be tachycardic in the wound clinic and subsequently was admitted to the hospital through the emergency room. He denies any chest pain or chest tightness. No unusual shortness of breath. Currently has no fever or chills. He has no history for any GI bleed. No nausea or vomiting. No peptic ulcers. Has no difficulty in swallowing. Review of Systems Narrative: CONSTITUTIONAL: Fever and chills as mentioned above EYES: No blurring of vision or other visual disturbances lately. [] ENT: No hoarseness of voice, auditory disturbances or sore throat. [] CARDIOVASCULAR: As mentioned above. [] RESPIRATORY: History of sleep apnea GASTROINTESTINAL: No hematemesis or melena. [] GENITOURINARY: No dysuria or hematuria. INTEGUMENTARY: No skin rashes or history of skin cancer. NEURO: No transient ischemic attacks or amaurosis. PSYCHIATRIC: No history of psychosis or major depression. HEMATOLOGIC: No bleeding disorders or significant anemia. ENDOCRINE: type 2 diabetes MUSCULOSKELETAL: No recent joint pain or swelling. ALLERGY/IMMUNOLOGY: As mentioned above. Medications/Allergies Home Medications Medication Instructions Recorded Confirmed Last Taken Type spironolactone 50 mg tablet 50 mg PO DAILY #90 tabs 12/11/20 12/04/21 12/04/21 Rx aspirin 81 mg tablet,delayed 81 mg PO DAILY #30 tabs 02/10/21 12/04/21 12/03/21 Rx release (Adult Aspirin Regimen) clonidine HCl 0.2 mg tablet 0.2 mg PO BID 04/19/21 12/04/21 12/04/21 History hydralazine 100 mg tablet 100 mg PO TID #90 tabs 05/30/21 12/04/21 Unknown Rx nifedipine 60 mg tablet,extended See Rx Instructions .Route 06/11/21 12/04/21 Unknown Rx release .COMPLEX #90 tabs lisinopril 40 mg tablet 40 mg PO BEDTIME #30 tabs 07/31/21 12/04/21 Unknown Rx rosuvastatin 10 mg tablet 10 mg PO DAILY #30 tabs 07/31/21 12/04/21 Unknown Rx semaglutide 1 mg/dose (4 mg/3 mL) See Rx Instructions .Route 11/07/21 12/04/21 12/03/21 Rx subcutaneous pen injector (Ozempic) .COMPLEX #3 mL celecoxib 100 mg capsule 100 mg PO BID 12/04/21 12/04/21 12/04/21 History furosemide 40 mg tablet 40 mg PO BID 12/04/21 12/04/21 Unknown History potassium chloride 20 mEq 20 meq PO DAILY 12/04/21 12/04/21 Unknown History tablet,extended release(part/cryst) Allergies Allergy/AdvReac Type Severity Reaction Status Date / Time Penicillins Allergy Unknown Verified 12/04/21 15:36 Current Medications Generic Name Dose Route Start Last Admin Trade Name Freq PRN Reason Stop Dose Admin Acetaminophen 650 mg 12/04/21 20:03 12/09/21 00:33 Acetaminophen 325 Mg Tablet PO 650 mg Q6H PRN Administration Mild/Mod Pain Or Temp >/= 101 Acetaminophen/Codeine Phosphate 1 tab 12/09/21 09:59 12/10/21 15:18 Acetaminophen-Codeine 300-30mg Tablet PO 1 tab Q4H PRN Administration MODERATE PAIN Aspirin 81 mg 12/05/21 09:00 12/10/21 08:21 Aspirin 81 Mg Ec Tablet PO 81 mg DAILY SONIA Administration Atorvastatin Calcium 40 mg 12/05/21 09:00 12/10/21 08:22 Atorvastatin 40 Mg Tablet PO 40 mg DAILY SONIA Administration Clonidine HCl 1 patch 12/07/21 09:30 12/07/21 09:25 Clonidine 0.1 Mg/24 Hr Patch TRANSDERMA 1 patch Q7D SONIA Administration Clonidine HCl 1 patch 12/09/21 12:30 12/09/21 13:05 Clonidine 0.2 Mg/24 Hr Patch TRANSDERMA 1 patch Q7D SONIA Administration Docusate Sodium 100 mg 12/05/21 09:00 12/10/21 17:49 Docusate Sodium 100 Mg Capsule PO 100 mg BID SONIA Administration Ferrous Gluconate 324 mg 12/05/21 08:00 12/10/21 17:49 Ferrous Gluconate 324 Mg Tablet PO 324 mg BIDWM SONIA Administration Heparin Sodium (Porcine) 5,000 unit 12/04/21 21:00 12/10/21 08:26 Heparin 5,000 Unit/Ml Inj 1 Ml SUBCUT 5,000 unit Q12H SONIA Administration Hydralazine HCl 50 mg 12/10/21 15:00 12/10/21 14:05 Hydralazine 50 Mg Tablet PO 50 mg TID SONIA Administration Cefazolin Sodium 2,000 mg/ 50 mls @ 100 mls/hr 12/08/21 08:00 12/10/21 16:27 Sodium Chloride IV Infused Q8H SONIA Infusion Protocol Lactated Ringer's 1,000 mls @ 125 mls/hr 12/08/21 08:15 12/10/21 17:19 Lactated Ringers IV 125 mls/hr .Q8H SONIA Administration Insulin Human Lispro 0 unit 12/04/21 21:00 12/10/21 17:49 Insulin Lispro 100 Unit/1 Ml SUBCUT 10 unit WM&BEDTIME SONIA Administration Protocol PFSH Acute PFSH: Medical History Acute conjunctivitis, right eye Anemia BPH (benign prostatic hyperplasia) Cellulitis Diabetes Diabetes mellitus with polyneuropathy Dyslipidemia Edema Neuropathy Osteomyelitis of toe of right foot Pneumonia due to COVID-19 virus Post-acute COVID-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 Respiratory failure with hypoxia Saphenous vein clot Sleep apnea Family History Other CAD (coronary artery disease) Hypertension Social History Smoking and tobacco status: never smoked Vitals/I&O/Wt Last Vital Signs Temp 98.2 F 12/10/21 16:00 Pulse 65 08/01/22 16:00 Resp 15 12/10/21 16:00 BP 189/92 12/10/21 16:00 Pulse Ox 92 12/10/21 15:30 O2 Del Method 12/10/21 15:15 O2 Flow Rate 3 12/09/21 09:00 FiO2 30 12/10/21 06:00 12/10/21 12/10/21 12/10/21 06:59 14:59 22:59 Intake Total 1350 / 4014.166 450 / 450 1050 / 1500 Output Total 3100 / 5125 1600 / 1600 775 / 2375 Balance -1750 / -1110.834 -1150 / -1150 275 / -875 Weight last 48 hrs Weight 298 lb 2 oz Weight 300 lb 1 oz Physical Exam Narrative: GENERAL: The patient is alert and oriented times three. Not in any acute distress. HEENT: No significant pallor, icterus or lymphadenopathy.Oral cavity: There are no mucous membrane lesions. NECK: Trachea appears to be central. No masses noted. No JVD or thyromegaly appreciated. RESPIRATORY: Chest is symmetrical. No intercostals muscle retraction or any accessory muscle activation. There is no chest wall tenderness. Breath sounds are heard bilaterally. No rales or rhonchi heard. No evidence of any consolidation. BREASTS: Deferred. HEART: The heart sounds are normal. No S3 or S4. No significant murmurs. No pericardial rub ABDOMEN: No vessel pulsations or distention. No tenderness. No organomegaly appreciated. Bowel sounds are normally heard. : Deferred. RECTAL: Deferred. LYMPHATIC: No lymphadenopathy noted in the neck. EXTREMITIES: No edema or cyanosis. No clubbing. MUSCULOSKELETAL: The right foot is bandaged. SKIN: There are no significant rashes or ecchymosis NEUROPSYCHIATRIC: The patient is alert and oriented x3. Appears to be in a good mood. No tremors or rigidity noted. Urinary Catheter Management: Díaz: Cath Placed During This Visit: yes Reason for Continuing Indwelling Catheter: Accurate Measurement of Urinary Output in Critically Ill Patients Urinary Catheter Date of Insertion: 12/05/21 Urinary Catheter Time of Insertion: 01:38 Data : 12/11/21 03:01 12/11/21 03:01 Other Labs: Laboratory Last Values WBC 10.8 10^3/uL (4.0-10.0) H 12/10/21 03:12 RBC 3.71 10^6/uL (4.1-5.3) L 12/10/21 03:12 Hgb 10.8 g/dL (11.7-16.6) L 12/10/21 03:12 Hct 32.1 % (42.0-52.0) L 12/10/21 03:12 MCV 86.5 fl (80-94) 12/10/21 03:12 MCH 29.1 pg (28.0-34.0) 12/10/21 03:12 MCHC 33.6 g/dL (30.0-36.0) 12/10/21 03:12 RDW 13.8 % (12.1-15.1) 12/10/21 03:12 Plt Count 302 10^3/cmm (130-400) 12/10/21 03:12 MPV 10.2 fL (7.4-10.4) 12/10/21 03:12 Neut % (Auto) 71.4 % 12/10/21 03:12 Lymph % (Auto) 14.8 % 12/10/21 03:12 [place] % (Auto) 7.7 % 12/10/21 03:12 Eos % (Auto) 3.0 % 12/10/21 03:12 Baso % (Auto) 0.6 % 12/10/21 03:12 Neut # (Auto) 7.76 10^3/uL (1.8-7.7) H 12/10/21 03:12 Lymph # (Auto) 1.6 10^3/uL (0.8-4.8) 12/10/21 03:12 [place] # (Auto) 0.8 10^3/uL (0.2-0.9) 12/10/21 03:12 Eos # (Auto) 0.3 10^3/uL (0.0-0.8) 12/10/21 03:12 Baso # (Auto) 0.1 10^3/uL (0.0-0.1) 12/10/21 03:12 Nucleated RBC % (auto) 0 % 12/10/21 03:12 Nucleated RBCs # 0.0 /100WBC 12/10/21 03:12 ESR 68 mm/hr (0-10) H 12/04/21 16:42 Specimen Type Arterial 12/05/21 12:05 Sample Site Radial, left 12/05/21 12:05 ABG pH 7.42 (7.35-7.45) 12/05/21 12:05 ABG pCO2 33.5 mmHg (35-45) L 12/05/21 12:05 ABG pO2 88.9 mmHg (80.0-100.0) 12/05/21 12:05 ABG HCO3 21.8 mmol/L (22-26) L 12/05/21 12:05 ABG O2 Saturation 97.1 12/05/21 12:05 ABG Base Excess -2.1 mmol/L (-2.0-2.0) L 12/05/21 12:05 Eliu Test Pos 12/05/21 12:05 A-a O2 Gradient 14.4 mmHg (5-10) H 12/05/21 12:05 Hematocrit 38.7 % (42-52) L 12/05/21 12:05 Hgb O2 Saturation 95.1 % (95-100) 12/05/21 12:05 Carboxyhemoglobin 1.5 %THgb (0.4-20.1) 12/05/21 12:05 Methemoglobin 0.5 % (0.4-1.5) 12/05/21 12:05 Total Hemoglobin 12.6 g/dL (14-18) L 12/05/21 12:05 Sodium 134.0 mmol/L (131-143) 12/05/21 12:05 Potassium 4.5 mmol/L (3.5-5.0) 12/05/21 12:05 Glucose 244.0 mg/dL (70-115) H 12/05/21 12:05 Ionized Calcium 1.1 mmol/L (1.1-1.4) 12/05/21 12:05 O2 Delivery Device Nc 12/05/21 12:05 O2 Liters/Min 3.5 % 12/05/21 12:05 FiO2 34.0 % 12/05/21 12:05 Metal Model Maker ID [place] 12/05/21 12:05 Sodium 138 mmol/L (136-145) 12/10/21 03:12 Potassium 3.9 mmol/L (3.5-5.1) 12/10/21 03:12 Chloride 103 mmol/L (98-107) 12/10/21 03:12 Carbon Dioxide 23 mmol/L (22-29) 12/10/21 03:12 Anion Gap 15.9 (5-19) 12/10/21 03:12 BUN 32 mg/dL (6-20) H 12/10/21 03:12 Creatinine 1.8 mg/dL (0.7-1.2) H 12/10/21 03:12 GFR Calculation 39.8 mL/min (90-130) L 12/10/21 03:12 Glucose 266 mg/dL (65-115) H 12/10/21 03:12 POC Glucose 227 mg/dL (70-110) H 12/10/21 17:13 Estimat Average Glucose 174 12/05/21 01:54 Hemoglobin A1c 7.7 % (4.0-6.0) H 12/05/21 01:54 Calculated Osmolality 302 mOsm/kg (285-295) H 12/10/21 03:12 Lactate 2.0 mmol/L (0.5-2.2) 12/05/21 01:54 Uric Acid 11.2 mg/dL (3.4-7.0) H 12/06/21 09:18 Calcium 8.5 mg/dL (8.5-10.5) 12/10/21 03:12 Phosphorus 2.9 mg/dL (2.5-4.5) 12/10/21 03:12 Magnesium 1.7 mg/dL (1.7-2.3) 12/10/21 03:12 Iron 16 ug/dL (59-158) L 12/04/21 16:42 TIBC 284 mcg/dl 12/04/21 16:42 % Saturation 5.6 % (20-50) L 12/04/21 16:42 Unsat Iron Binding 268 ug/dL (112-347) 12/04/21 16:42 Total Bilirubin 0.2 mg/dL (0.15-1.2) 12/10/21 03:12 AST 49 U/L (0-40) H 12/10/21 03:12 ALT 37 U/L (0-41) 12/10/21 03:12 Alkaline Phosphatase 148 IU/L (40-130) H 12/10/21 03:12 Creatine Kinase 101 U/L (39-308) 12/10/21 03:12 Troponin T Baseline 21 ng/L (0-15) H 12/04/21 16:42 Troponin T 120 Minute 25.83 ng/L (0-15) H 12/04/21 18:38 Delta Troponin T 4.83 ABS# (0-10) 12/04/21 18:38 Troponin T Hi Sens 6Hr 33.25 ng/L (0-15) H 12/05/21 01:54 Troponin T Hi Sens 6Hr Delta 12.25 ng/L (0-12) H* 12/05/21 01:54 C-Reactive Protein 363.9 mg/L (0.0-4.9) H 12/04/21 16:42 NT-Pro-B Natriuret Pep 702 pg/mL (0-125) H 12/04/21 16:42 Total Protein 6.3 g/dL (6.6-8.7) L 12/10/21 03:12 Albumin 2.6 g/dL (3.5-5.2) L 12/10/21 03:12 Globulin 3.7 g/dL (1.3-4.6) 12/10/21 03:12 Triglycerides 126 mg/dL (0-150) 12/05/21 01:54 Cholesterol 94 mg/dL (0-200) 12/05/21 01:54 LDL Cholesterol, Calc 28 mg/dL (50-129) L 12/05/21 01:54 Total VLDL Cholesterol 25 mg/dL (0-30) 12/05/21 01:54 HDL Cholesterol 41 mg/dL (60-100) L 12/05/21 01:54 Cholesterol/HDL Ratio 2.29 mg/dL (1.0-5.00) 12/05/21 01:54 Amylase 18 U/L (28-100) L 12/04/21 16:42 Lipase 17 U/L (13-60) 12/04/21 16:42 Vitamin B12 475 pg/mL (232-1245) 12/04/21 16:42 25-OH Vitamin D Total 17 ng/mL (30-100) L 12/07/21 02:28 Folate 16.0 ng/mL (4.5-32.2) 12/04/21 16:42 Procalcitonin 2.14 ng/mL (0-0.5) H 12/04/21 16:42 TSH 1.70 uIU/mL (0.27-4.20) 12/04/21 16:42 Prolactin 6.74 ng/mL (4.0-15.2) 12/07/21 07:58 Urine Color Cancelled 12/05/21 10:18 Urine Appearance Cancelled 12/05/21 10:18 Urine pH Cancelled 12/05/21 10:18 Ur Specific [place] Cancelled 12/05/21 10:18 Urine Protein Cancelled 12/05/21 10:18 Urine Glucose (UA) Cancelled 12/05/21 10:18 Urine Ketones Cancelled 12/05/21 10:18 Urine Blood Cancelled 12/05/21 10:18 Urine Nitrate Cancelled 12/05/21 10:18 Urine Bilirubin Cancelled 12/05/21 10:18 Prot Sulfosalicylic Acd Cancelled 12/05/21 10:18 Urine Urobilinogen Cancelled 12/05/21 10:18 Ur Leukocyte Esterase Cancelled 12/05/21 10:18 Ur Microscopic Indic Cancelled 12/05/21 10:18 Urine RBC 5-10 /hpf (0-2) H 12/05/21 03:50 Urine WBC 0-4 /hpf (0-5) H 12/05/21 03:50 Ur Eosinophil Smear 0 (0-0) 12/05/21 10:18 Ur Squamous Epith Cells 0-4 /hpf (0-5) H 12/05/21 03:50 Amorphous Sediment 4+ /hpf 12/05/21 03:50 Urine Bacteria 2+ /hpf (NONE) H 12/05/21 03:50 Urine Eosinophils No eosinophils seen 12/05/21 10:18 Ur Random Sodium 12 mmol/L 12/05/21 10:18 Ur Random Potassium 62 mmol/L 12/05/21 10:18 Ur Random Chloride 11 mmol/L 12/05/21 10:18 Urine Creatinine 438 mg/dL (39-259) H 12/05/21 10:18 Vancomycin Trough 18.4 ug/mL (10-15) H 12/07/21 14:10 Urine Opiates Screen Negative ng/mL (Negative) 12/05/21 10:18 Ur Barbiturates Screen Negative ng/mL (Negative) 12/05/21 10:18 Ur Phencyclidine Scrn Negative ng/mL (Negative) 12/05/21 10:18 Ur Amphetamines Screen Negative ng/mL (Negative) 12/05/21 10:18 U Benzodiazepines Scrn Negative ng/mL (Negative) 12/05/21 10:18 Urine Cocaine Screen Negative ng/mL (Negative) 12/05/21 10:18 U Marijuana (THC) Screen Negative ng/mL (Negative) 12/05/21 10:18 Complement C3 164 mg/dL (90-180) 12/06/21 09:18 Complement C4 66 mg/dL (10-40) H 12/06/21 09:18 Coronavirus 229E (PCR) Not detected (NOT DETECT) 12/05/21 19:25 Hepatitis C Antibody Non-reactive (Nonreactive) 12/06/21 15:49 SARS-CoV-2 (PCR) Not detected (NOT DETECT) 12/05/21 19:25 SARS-CoV-2 RNA (RT-PCR) Cancelled 12/05/21 14:44 SARS-CoV-2 Ag (Rapid) Negative (Negative) 12/04/21 21:30 Micro: Microbiology 12/09/21 08:33 Anaerobic Culture - Preliminary Foot - Right 12/09/21 08:33 Gram Stain - Final Foot - Right Tissue Culture - Preliminary 12/04/21 20:41 Blood Culture - Final Blood NO GROWTH AFTER 5 DAYS Echo: My impression: Normal left ventricular size and systolic function, EF 57 %. ?Moderate left ventricular hypertrophy. Grade II/IV diastolic ?dysfunction, moderately elevated filling pressures. ?Mildly increased left atrial size. ?Thickened mitral valve. Trace mitral valve regurgitation. ?Thickened aortic valve. Trace aortic valve regurgitation. ?Echo contrast was used for endocardial delineation. ?There is no pericardial effusion. ?There are no intracardiac masses. ?Comparison with the previous study is difficult because of the ?difference in the technical quality. EKG 1: My Interpretation: Sinus rhythm with a heart rate of 86 bpm. Possible LVH. Possible left atrial enlargement. Some nonspecific T wave changes in the high lateral leads. EKG computer-generated impression: Foot X-Ray 12/04/21 17:04 IMPRESSION: No acute skeletal finding. Foot CT 12/04/21 19:21 IMPRESSION: 1. No definite evidence for active osteomyelitis. 2. Resection of the mid and distal 1st metatarsal. 3. Probable cellulitis and ulceration in the medial great toe and in the region of the 1st metatarsophalangeal joint. 4. Subcutaneous soft tissue edema/cellulitis in the dorsal foot. No definite discrete abscess identified. Abdomen/Pelvis CT 12/05/21 02:39 IMPRESSION: 1. No renal obstruction. 2. Numerous small indeterminate lymph nodes along the RIGHT common and external iliac chain with the largest measuring 13 mm. These may be reactive but are borderline enlarged. Patient has a history of osteomyelitis of the RIGHT foot which may explain these lymph nodes. 3. Díaz catheter in a nondistended urinary bladder. 4. There are a few very minimal sclerotic bone lesions in the pelvis and posterior L4 vertebral body. These may be benign bone islands. Head CT 12/05/21 16:41 IMPRESSION: No acute intracranial abnormality demonstrated. ASSESSMENT: ASPECTS ([place] Stroke Program Early CT Score) is 10. Head MRI 12/05/21 17:02 IMPRESSION: Scattered punctate infarcts bilaterally, compatible with an embolic etiology. Chest X-Ray 12/06/21 14:12 IMPRESSION: Unremarkable chest radiograph. Foot MRI 12/07/21 09:30 IMPRESSION: 1. Prior postoperative changes partial resection of the mid and distal 1st metatarsal. 2. Diffuse cellulitis with soft tissue edema worse involving the dorsal midfoot soft tissues overlying the tarsal bones and proximal metatarsals. 3. Lobulated T2 hyperintense fluid collection with septations overlying the dorsal aspect of the midfoot extending laterally. This extends to the dorsal intertarsal soft tissues with surrounding cellulitis. Findings suspicious for phlegmon/abscess. Some of this may represent chronic inflammatory fluid. 4. No definite evidence of acute osteomyelitis. A&P Assessment and plan (1) Staphylococcal sepsis: Blood culture grew gram-positive cocci Status: Acute (2) Embolic stroke: Status: Acute (3) Chronic osteomyelitis of right foot: Status: Acute (4) CPAP (continuous positive airway pressure) dependence: Status: Acute (5) Essential hypertension: Status: Acute (6) T2DM (type 2 diabetes mellitus): Status: Acute (7) Chronic kidney disease: Status: Acute Plan In view of the patient's MSSA sepsis and embolic stroke, possibility of en docarditis is a strong consideration. The transthoracic echocardiogram was of suboptimal quality. To further evaluate for endocarditis, a BECKA would be appropriate. I discussed in detail with the patient about the procedure The risk of aspiration, bleeding, soft tissue injury, perforation of the s tomach/esophagus and other concomitant complications were explained to the patient in detail. The patient understood this well and consented to proceed. We will go ahead and make the arrangements to have this done tomorrow. 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
[2021-12-10 21:11] LABS: Glucose Point of Care 195 mg/dL (70-110)
[2021-12-10] MEDS: insulin glargine 100 units/1 mL 10 UNIT SUBCUT (21:30)
[2021-12-11] VITALS (99 sets, daily range): BP systolic 141–207; BP diastolic 79–128; PULSE 57–133; RESP 8–26; TEMP 36.7–37.6; O2SAT 87–100; BMI 44.1
[2021-12-11] MEDS: lactated ringers 1,000 ML 125 ML IV ×3 (00:36→21:07)
[2021-12-11] MEDS: ceFAZolin 2,000 MG in sodium chloride 0.9% (plus) 50 ML 100 MG IV ×3 (00:36→17:02)
[2021-12-11 03:17] LABS: Basophils # 0.1 10^3/uL (0.0-0.1); Basophils % 0.7 %; Eosinophils # 0.3 10^3/uL (0.0-0.8); Eosinophils % 3.3 %; Hematocrit 34.3 % (42.0-52.0); Hemoglobin 10.8 g/dL (11.7-16.6); Lymphocytes # 2.1 10^3/uL (0.8-4.8); Lymphocytes % 20.5 %; Mean Corpuscular HGB Conc 31.5 g/dL (30.0-36.0); Mean Corpuscular Volume 92.2 fl (80-94); Mean Platelet Volume 9.5 fL (7.4-10.4); Monocytes # 0.7 10^3/uL (0.2-0.9); Monocytes % 6.6 %; Neutrophils # 6.44 10^3/uL (1.8-7.7); Neutrophils % 63.9 %; Nucleated Red Blood Cells % 0 %; Platelet Count 338 10^3/cmm (130-400); Red Blood Count 3.72 10^6/uL (4.1-5.3); Red Cell Distribution Width 13.8 % (12.1-15.1); White Blood Count 10.1 10^3/uL (4.0-10.0)
[2021-12-11 03:35] LABS: Alanine Aminotransferase 28 U/L (0-41); Albumin Level 2.1 g/dL (3.5-5.2); Alkaline Phosphatase 145 IU/L (40-130); Anion Gap 17.1 (5-19); Aspartate Amino Transferase 36 U/L (0-40); Blood Urea Nitrogen 30 mg/dL (6-20); Calcium 8.8 mg/dL (8.5-10.5); Carbon Dioxide 25 mmol/L (22-29); Chloride 101 mmol/L (98-107); Glomerular Filtration Rate 45.6 mL/min (90-130); Glucose 237 mg/dL (65-115); Magnesium 1.6 mg/dL (1.7-2.3); Osmolality Calculated 302 mOsm/kg (285-295); Phosphorus 3.2 mg/dL (2.5-4.5); Potassium 4.1 mmol/L (3.5-5.1); Sodium 139 mmol/L (136-145); Total Bilirubin 0.2 mg/dL (0.15-1.2); Total Protein 6.1 g/dL (6.6-8.7)
--- NOTE | 2021-12-11 06:58 | PC.NURSE ---
Dressing Change By Dr. Burgos @[id number]. Pt tolerated well. Small amount of of sanguineous drainage. wet to dry with 4x4s, bulky, and ROMAN wrap.
[2021-12-11 07:08] LABS: Glucose Point of Care 195 mg/dL (70-110)
[2021-12-11] MEDS: aspirin 81 mg EC Tablet PO (08:17)
[2021-12-11] MEDS: docusate sodium 100 mg Capsule PO ×2 (08:17→17:33)
[2021-12-11] MEDS: ferrous gluconate 324 mg Tablet PO ×2 (08:17→17:33)
[2021-12-11] MEDS: heparin 5,000 unit/mL INJ 1 mL 5000 UNIT SUBCUT ×2 (08:18→21:02)
[2021-12-11] MEDS: hyDRALAzine 50 mg Tablet PO (08:18)
[2021-12-11] MEDS: pantoprazole DR 40 mg Tablet PO (08:18)
[2021-12-11] MEDS: atorvastatin 40 mg Tablet PO (08:18)
[2021-12-11] MEDS: NIFEdipine ER (24 hr) 30 mg Tablet 90 MG PO (08:18)
[2021-12-11] MEDS: insulin lispro 100 unit/1 mL SUBCUT ×4 (08:19→21:03)
--- NOTE | 2021-12-11 08:38 | P.PN_ITS ---
Subjective Subjective: Patient was seen and examined this morning, has been remained afebrile overnight, WBC count is trending down, kidney function is improving, due for BECKA today. Medications: Reviewed: Yes Medication Review Details: Generic Name Dose Route Start Last Admin Trade Name Freq PRN Reason Stop Dose Admin Acetaminophen 650 mg 12/04/21 20:03 12/09/21 00:33 Acetaminophen 32 5 Mg Tablet PO 650 mg Q6H PRN Administration Mild/Mod Pain Or Temp >/= 101 Acetaminophen/Code ine Phosphate 1 tab 12/09/21 09:59 12/09/21 10:30 Acetaminophen-Co deine 300-30mg Tab let PO 1 tab Q4H PRN Administration MODERATE PAIN Aspirin 81 mg 12/05/21 09:00 12/10/21 08:21 Aspirin 81 Mg Ec Tablet PO 81 mg DAILY SONIA Administration Atorvastatin Calci um 40 mg 12/05/21 09:00 12/10/21 08:22 Atorvastatin 40 Mg Tablet PO 40 mg DAILY SONIA Administration Clonidine HCl 1 patch 12/07/21 09:30 12/07/21 09:25 Clonidine 0.1 Mg /24 Hr Patch TRANSDERMA 1 patch Q7D SONIA Administration Clonidine HCl 1 patch 12/09/21 12:30 12/09/21 13:05 Clonidine 0.2 Mg /24 Hr Patch TRANSDERMA 1 patch Q7D SONIA Administration Docusate Sodium 100 mg 12/05/21 09:00 12/10/21 08:26 Docusate Sodium 100 Mg Capsule PO 100 mg BID SONIA Administration Ferrous Gluconate 324 mg 12/05/21 08:00 12/10/21 08:22 Ferrous Gluconat e 324 Mg Tablet PO 324 mg BIDWM SONIA Administration Heparin Sodium (Po rcine) 5,000 unit 12/04/21 21:00 12/10/21 08:26 Heparin 5,000 Un it/Ml Inj 1 Ml SUBCUT 5,000 unit Q12H SONIA Administration Cefazolin Sodium 2 ,000 mg/ 50 mls @ 100 mls/ hr 12/08/21 08:00 12/10/21 09:50 Sodium Chloride IV Infused Q8H SONIA Infusion Protocol Lactated Ringer's 1,000 mls @ 125 m ls/hr 12/08/21 08:15 12/10/21 08:42 Lactated Ringers IV 125 mls/hr .Q8H SONIA Administration Insulin Glargine 15 unit 12/08/21 18:00 12/10/21 08:27 Insulin Glargine 100 Units/1 Ml SUBCUT 15 unit BID SONIA Administration Insulin Human Lisp ro 0 unit 12/04/21 21:00 12/10/21 12:28 Insulin Lispro 1 00 Unit/1 Ml SUBCUT 8 unit WM&BEDTIME SONIA Administration Protocol Nifedipine 60 mg 12/09/21 14:15 12/10/21 08:22 Nifedipine Er (2 4 Hr) 30 Mg Tablet PO 60 mg DAILY SONIA Administration Pantoprazole Sodiu m 40 mg 12/04/21 18:31 12/09/21 17:33 Pantoprazole 40 Mg Sdv IVP 40 mg Q24H SONIA Administration Vitals/I&O/Wt Last Vital Signs Temp 99.6 F 12/11/21 04:00 Pulse 66 12/11/21 06:00 Resp 17 12/11/21 05:15 BP 183/86 12/11/21 05:15 Pulse Ox 97 12/11/21 05:15 O2 Del Method 12/11/21 04:00 O2 Flow Rate 3 12/09/21 09:00 FiO2 30 12/11/21 06:00 12/10/21 12/11/21 12/11/21 22:59 06:59 14:59 Intake Total 1050 / 1500 1360.417 / 2860.417 989.583 / 989.583 Output Total 775 / 2375 1850 / 4225 500 / 500 Balance 275 / -875 -489.583 / -1364.583 489.583 / 489.583 Weight last 48 hrs Weight 135.681 kg Weight 135.227 kg Physical Exam 2 Const: COMMON NORMALS: patient oriented x3 HENMT: COMMON NORMALS: normocephalic, atraumatic and hearing grossly normal bilaterally HEAD & SCALP: normocephalic and atraumatic Resp: COMMON NORMALS: clear to auscultation bilaterally AUSCULTATION: clear to auscultation bilaterally Cardio: COMMON NORMALS: regular rate, regular rhythm, S1 normal heart sound present, S2 normal heart sound present, No gallops present (Cardio), No murmurs present (Cardio), No rub (Cardio) and Peripheral pulses 2+ throughout RATE: regular rate RHYTHM: regular rhythm HEART SOUNDS: S1 normal heart sound present and S2 normal heart sound present PERIPHERAL PULSES: Peripheral pulses 2+ throughout GI: COMMON NORMALS: Normal to inspection, nondistended, normoactive bowel sounds present, Soft to palpation, non-tender, No hepatosplenomegaly present and no masses AUSCULTATION: Yes normoactive bowel sounds PALPATION: Yes Soft to palpation and Yes No hepatosplenomegaly present RECTAL EXAM: Yes deferred Extremity: COMMON NORMALS: no clubbing, cyanosis or edema and no pedal edema Neuro: COMMON NORMALS: patient oriented x3 Urinary Catheter Management: Díaz: Cath Placed During This Visit: yes, but has since been removed by the nurse Reason for Continuing Indwelling Catheter: Decision to DC Catheter Urinary Catheter Date of Insertion: 12/05/21 Urinary Catheter Time of Insertion: 01:38 Date Urinary Catheter Removed: 12/11/21 Time Urinary Catheter Discontinued: 07:20 Data : 12/11/21 03:01 12/11/21 03:01 Micro: Microbiology 12/09/21 08:33 Anaerobic Culture - Preliminary Foot - Right 12/09/21 08:33 Gram Stain - Final Foot - Right Tissue Culture - Preliminary A&P Assessment and plan (1) Septicemia: Status: Acute (2) Embolic stroke: Status: Acute (3) Cellulitis of foot, right: Status: Acute (4) Sepsis: Status: Acute (5) Acute kidney injury: Status: Acute Plan 51-year-old with past medical history of hypertension diabetes chronic osteomyelitis of the right foot Initially sent to ER from podiatry clinic for tachycardia. Currently is being managed for. Assessment: Sepsis secondary to right foot chronic osteomyelitis/cellulitis KARI Acute embolic stroke: Presumed to be septic embolization. Diabetes Hypertension Plan: Blood culture: MSSA CT foot RT wo con: No definite evidence for active osteomyelitis. Resection of the mid and distal 1st metatarsal. Probable cellulitis and ulceration in the medial great toe and in the region of the 1st metatarsophalangeal joint. Subcutaneous soft tissue edema/cellulitis in the dorsal foot. MR foot RT wo con: Diffuse cellulitis with soft tissue edema worse involving the dorsal midfoot soft tissues overlying the tarsal bones and proximal metatarsals.Lobulated T2 hyperintense fluid collection with septations overlying the dorsal aspect of the midfoot extending laterally. This extends to the dorsal intertarsal soft tissues with surrounding cellulitis. Findings suspicious for phlegmon/abscess. Some of this may represent chronic inflammatory fluid.No definite evidence of acute osteomyelitis. CT head wo con:No acute intracranial abnormality demonstrated. CT abdomen pelvis wo con:No renal obstruction. MR head wo con: Scattered punctate infarcts bilaterally, compatible with an embolic etiology. CV carotid duplex BI: No flow-limiting stenosis. 2D Echo : Normal left ventricular size and systolic function, EF 57 %. Moderate left ventricular hypertrophy. Grade II/IV diastolic?dysfunction, moderately elevated filling pressures. ?Mildly increased left atrial size. Thickened mitral valve. Trace mitral valve regurgitation.?Thickened aortic valve. Trace aortic valve regurgitation. BECKA: Plan: S/P I&D of the right foot. Last blood culture drawn on has been negative so far Follow abscess culture Currently on cefazolin IV. Plan is to continue for 6 weeks. PICC line will be placed prior to discharge. Continue aspirin and statin Continue LR Monitor BMP Avoid nephrotoxic's Continue nifedipine, clonidine, hydralazine. Anticoagulation has been avoided to prevent hemorrhagic transformation of septic emboli. Continue Lantus, sliding's insulin. On heparin for DVT prophylaxis CODE STATUS: Full code Attestations Medical Necessity Statement*: Patient is still in hospital for management of sepsis, need for IV antibiotics, awaiting BECKA, awaiting PICC line placement. Anticipate discharge in next 24 to 48 hours. Time Spent in Patient Care: Greater than 35 minutes (>than 50% of time spent in counselling and/or direct pt care on unit) . 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
--- NOTE | 2021-12-11 10:00 | PC.CHAP ---
Pastoral Care Encounter/Spiritual Assessment Type of Contact [] Declined spice grinder visit [] Patient/Family/Request visit [] Outpatient visit [] Follow-up visit [] Physician referral [] Code/Alert [x] Routine visit [] Staff referral [] Actively dying [] Patient sleeping [] Family support [] [] Out of room [] Palliative care [] [x] Receiving care in room [] Pre-surgical visit [] Trauma [] Long length of stay [x] ICU visit [] Other: Relational/Emotional Strength [] Patient feels connected with others/family/visitors/staff [] Distress [] Loneliness/isolation [] Abandonment Spirituality of Patient [] Person of [place] [] Attends Synagogue of their [place] [] Believes in Prayer [] Reads Bible or Hindu materials [] There are Spiritual issues to be addressed Lockstitcher Interventions [x] Prayer [] Active listening [] Non-anxious presence [] Spiritual/emotional support [] Crisis/trauma care [] Spiritual counseling [] Bereavement support [] Provided bereavement packet [] Provided Bible/devotional materials [] Provided toy/stuffed animal, coloring book to patient or family member [] Provided Communion [] Anointing/[place] [] Salvation [x] Completed spiritual assessment [] Other: Impact on Illness or Injury [] Angry [] Fearful [] Anxious [] Often cries [] Exhaustion [] Unable to work [] Unable to attend shinto [] Unable to walk/stand [] Unable to read [] Unable to drive [] Unable to eat/drink [] Unable to sleep [] Unable to be with family [] Patient intubated [] Other: Summary Time spent with patient
[2021-12-11 11:43] LABS: Glucose Point of Care 200 mg/dL (70-110)
--- NOTE | 2021-12-11 12:45 | USCV_ITS ---
Roney Anthony Age: 51 Gender: M : 1970 Exam Date: 12/11/2021 12:44 Ordering Phys: Jennifer Harp MD ([email or web address]) Technologist: [place] [facility] [place]: vegitation ? BP: / HR: Rhythm: Sinus Technical Quality: MEASUREMENTS (Male / Female) Normal Values Medications IV propofol, administered by the anesthesia service. Please refer to the anesthesia report Complications None. Proc. Components The patient was done in the ICU. Informed consent was obtainedthe BECKA probe was passed into the posterior pharynx , mid-esophagus, distal esophagus, and gastric fundus. BECKA was performed at multiple levels. The patient tolerated the procedure well and there were no complications. FINDINGS Left Ventricle Appears to be normal size with no intracardiac masses. Normal LV ejection fraction. Right Ventricle Appears to be of normal size with no intracavitary masses. Right Atrium Normal right atrial size. No right atrial mass or thrombus visualized. Left Atrium Normal left atrial size. No left atrial mass or thrombus visualized. LA Appendage Normal left atrial appendage. Normal flow velocities in the left atrial appendage. IA Septum Appears to be intact with no evidence of any interatrial shunt, based on color-flow Doppler examination and saline contrast injection Mitral Valve Mild mitral valve regurgitation. Aortic Valve Minimal thickening in the noncoronary cusp of the aortic valve Tricuspid Valve Trace tricuspid valve regurgitation. Pulmonic Valve Structurally normal pulmonic valve. Pericardium No pericardial effusion. Aorta Normal aortic root, arch and the descending aorta CONCLUSIONS 1. No intracardiac masses/thrombi/vegetations 2. Mild mitral regurgitation with trace of tricuspid regurgitation. 3. Normal cardiac chamber sizes. 4. No intracardiac shunts, based on color-flow Doppler examination and saline contrast injection 5. Minimally thickened noncoronary cusp of the aortic valve No similar previous studies are available for comparison Dr Jennifer Harp MD [facility] (Electronically Signed) Final Date: 12 December 2021 08:03 S
--- NOTE | 2021-12-11 12:47 | W.PM.OPSUD ---
Surgery/Procedure H&P Update DATE OF PROCEDURE: December 11, 2021 DATE H&P PERFORMED: 12/10/21 H&P UPDATE INFORMATION: I have reviewed H&P completed within last 30 days, I have examined patient prior to procedure and No changes to prior documentation PREOP DIAGNOSIS: Gm positive sepsis and septic emboli/ R/O endocarditis PLANNED PROCEDURE: BECKA
--- NOTE | 2021-12-11 13:48 | PC.NURSE ---
High BP BP 206/105 @1130. Pt denies pain. Dr. Espinoza notified. Recheck @1215 184/104. BECKA @1300, BP 142/93, O2 99% on room air. Pt sitting up in bed, talking on phone.
--- NOTE | 2021-12-11 15:05 | XRR_ITS ---
PROCEDURE INFORMATION: Exam: XR Chest Exam date and time: 12/11/2021 4:18 PM Age: 51 years old Clinical indication: Device placement; Picc; Additional info: Will call when ready- picc line placement TECHNIQUE: Imaging protocol: Radiologic exam of the chest. Views: 1 view. COMPARISON: CR XR chest 1V portable [id number] 12/06/2021 2:27 PM FINDINGS: Tubes, catheters and devices: Interval placement of a right upper extremity PICC, the the tube is coiled at the right subclavian vein with the tip pointing towards the right arm in the right axillary vein. Lungs: Lungs are clear bilaterally. Pleural spaces: No pleural effusion. No pneumothorax. Heart/Mediastinum: Stable moderate enlargement of the cardiac silhouette. Mediastinal contours are unremarkable. Bones/joints: Unremarkable for age. XR/XR chest 1V portable [id number] IMPRESSION: 1. Interval placement of a right upper extremity PICC, the the tube is coiled at the right subclavian vein with the tip pointing towards the right arm in the right axillary vein. 2. No acute cardiopulmonary process. 3. Incidental/nonacute findings are listed in the report.
--- NOTE | 2021-12-11 15:50 | ANES.PREANE2 ---
Pre-Anesthetic Assessment Height/Weight: Height 1.75 m Weight 135.681 kg Temp Pulse Resp BP Pulse Ox O2 Del Method O2 Flow Rate 98.0 F 70 11 L 184/104 97 3 12/11/21 14:46 12/11/21 14:07 12/11/21 12:15 12/11/21 12:30 12/11/21 12:30 12/11/21 08:30 12/09/21 09:00 FiO2 30 12/11/21 06:00 Preop Diagnosis: Gm positive sepsis and septic emboli/ R/O endocarditis Operation Date: 12/09/21 08:10 Proposed Procedures p Incision And Drainage Right Foot(Right) - Tej Burgos DPM Familial anesthetic complications: none Was Beta Fito taken within 24 hours: N/A Was Clonidine taken within 24 hours: Yes Social No alcohol and No tobacco Exam alert, oriented x 3 and regular rate & rhythm Airway Submandibular: within normal limits Cervical ROM: within normal limits Mallampati: Class III Dentition: chipped Pulmonary Sleep Apnea CV/HEM Arrythmia and Hypertension Chronic Renal Insufficiency GI Gastroesophageal Reflux Disease Metabolic Diabetes Mellitus and Morbid Obesity Neuropsych Cerebrovascular Accident Anesthetic Plan ASA status: 4 Anesthesia: MAC Medications/Allergies Home Medications Medication Instructions Recorded Confirmed Last Taken Type spironolactone 50 mg tablet 50 mg PO DAILY #90 tabs 12/11/20 12/04/21 12/04/21 Rx aspirin 81 mg tablet,delayed 81 mg PO DAILY #30 tabs 02/10/21 12/04/21 12/03/21 Rx release (Adult Aspirin Regimen) clonidine HCl 0.2 mg tablet 0.2 mg PO BID 04/19/21 12/04/21 12/04/21 History hydralazine 100 mg tablet 100 mg PO TID #90 tabs 05/30/21 12/04/21 Unknown Rx nifedipine 60 mg tablet,extended See Rx Instructions .Route 06/11/21 12/04/21 Unknown Rx release .COMPLEX #90 tabs lisinopril 40 mg tablet 40 mg PO BEDTIME #30 tabs 07/31/21 12/04/21 Unknown Rx rosuvastatin 10 mg tablet 10 mg PO DAILY #30 tabs 07/31/21 12/04/21 Unknown Rx semaglutide 1 mg/dose (4 mg/3 mL) See Rx Instructions .Route 06/12/04/21 12/03/21 Rx subcutaneous pen injector (Ozempic) .COMPLEX #3 mL celecoxib 100 mg capsule 100 mg PO BID 12/04/21 12/04/21 12/04/21 History furosemide 40 mg tablet 40 mg PO BID 12/04/21 12/04/21 Unknown History potassium chloride 20 mEq 20 meq PO DAILY 12/04/21 12/04/21 Unknown History tablet,extended release(part/cryst) Allergies Allergy/AdvReac Type Severity Reaction Status Date / Time Penicillins Allergy Unknown Verified 12/04/21 15:36 Current Medications Generic Name Dose Route Start Last Admin Trade Name Freq PRN Reason Stop Dose Admin Acetaminophen 650 mg 12/04/21 20:03 12/09/21 00:33 Acetaminophen 325 Mg Tablet PO 650 mg Q6H PRN Administration Mild/Mod Pain Or Temp >/= 101 Acetaminophen/Codeine Phosphate 1 tab 12/09/21 09:59 12/10/21 15:18 Acetaminophen-Codeine 300-30mg Tablet PO 1 tab Q4H PRN Administration MODERATE PAIN Aspirin 81 mg 12/05/21 09:00 12/11/21 08:17 Aspirin 81 Mg Ec Tablet PO 81 mg DAILY SONIA Administration Atorvastatin Calcium 40 mg 12/05/21 09:00 12/11/21 08:18 Atorvastatin 40 Mg Tablet PO 40 mg DAILY SONIA Administration Clonidine HCl 1 patch 12/07/21 09:30 12/07/21 09:25 Clonidine 0.1 Mg/24 Hr Patch TRANSDERMA 1 patch Q7D SONIA Administration Clonidine HCl 1 patch 12/09/21 12:30 12/09/21 13:05 Clonidine 0.2 Mg/24 Hr Patch TRANSDERMA 1 patch Q7D SONIA Administration Docusate Sodium 100 mg 12/05/21 09:00 12/11/21 08:17 Docusate Sodium 100 Mg Capsule PO 100 mg BID SONIA Administration Ferrous Gluconate 324 mg 12/05/21 08:00 12/11/21 08:17 Ferrous Gluconate 324 Mg Tablet PO 324 mg BIDWM SONIA Administration Heparin Sodium (Porcine) 5,000 unit 12/04/21 21:00 12/11/21 08:18 Heparin 5,000 Unit/Ml Inj 1 Ml SUBCUT 5,000 unit Q12H SONIA Administration Cefazolin Sodium 2,000 mg/ 50 mls @ 100 mls/hr 12/08/21 08:00 12/11/21 09:30 Sodium Chloride IV Infused Q8H SONIA Infusion Protocol Lactated Ringer's 1,000 mls @ 125 mls/hr 12/08/21 08:15 12/11/21 08:31 Lactated Ringers IV 125 mls/hr .Q8H SONIA Administration Insulin Human Lispro 0 unit 12/04/21 21:00 12/11/21 11:48 Insulin Lispro 100 Unit/1 Ml SUBCUT 8 unit WM&BEDTIME SONIA Administration Protocol Nifedipine 90 mg 12/11/21 09:00 12/11/21 08:18 Nifedipine Er (24 Hr) 30 Mg Tablet PO 90 mg DAILY SONIA Administration Pantoprazole Sodium 40 mg 12/11/21 09:00 12/11/21 08:[address] 40 Mg Tablet PO 40 mg DAILY SONIA Administration [facility] Anesthesia Medical History Acute conjunctivitis, right eye Anemia BPH (benign prostatic hyperplasia) Cellulitis Diabetes Diabetes mellitus with polyneuropathy Dyslipidemia Edema Neuropathy Osteomyelitis of toe of right foot Pneumonia due to COVID-19 virus Post-acute COVID-19 syndrome Respiratory failure with hypoxia Saphenous vein clot Sleep apnea Family History Other CAD (coronary artery disease) Hypertension Social History Smoking and tobacco status: never smoked Data Anesthesia : 12/11/21 03:01 12/11/21 03:01 Short CBC 12/10/21 12/11/21 Range/Units 03:12 03:01 WBC 10.8 H 10.1 H (4.0-10.0) 10^3/uL Hgb 10.8 L 10.8 L (11.7-16.6) g/dL Hct 32.1 L 34.3 L (42.0-52.0) % MCV 86.5 92.2 D (80-94) fl Plt Count 302 338 (130-400) 10^3/cmm Neut % (Auto) 71.4 63.9 % Neut # (Auto) 7.76 H 6.44 (1.8-7.7) 10^3/uL BMP 12/10/21 12/11/21 03:12 03:01 Sodium 138 139 Potassium 3.9 4.1 Chloride 103 101 Carbon Dioxide 23 25 BUN 32 H 30 H Creatinine 1.8 H 1.6 H Glucose 266 H 237 H Calcium 8.5 8.8 Cardiac Enzymes 12/10/21 Range/Units 03:12 Creatine Kinase 101 (39-308) U/L Liver Function 12/10/21 12/11/21 Range/Units 03:12 03:01 Total Bilirubin 0.2 0.2 (0.15-1.2) mg/dL AST 49 H 36 (0-40) U/L ALT 37 28 (0-41) U/L Alkaline Phosphatase 148 H 145 H (40-130) IU/L Albumin 2.6 L 2.1 L (3.5-5.2) g/dL Coags 12/11/21 04:01 APTT Cancelled Microbiology 12/09/21 08:33 Gram Stain - Final Foot - Right Tissue Culture - Final Staphylococcus aureus 12/06/21 09:18 Blood Culture - Final Blood NO GROWTH AFTER 5 DAYS 12/06/21 09:15 Blood Culture - Final Blood NO GROWTH AFTER 5 DAYS 12/09/21 08:33 Anaerobic Culture - Preliminary Foot - Right Cardiac Studies: Echocardiogram 12/05/21 Echocardiogram Ultrasound 12/31/19 Sestamibi Stress Test (Cardiology) 04/10/20
--- NOTE | 2021-12-11 15:52 | ANE.PACU2 ---
Inpatient post-anesthesia follow up: Airway intact: Yes Vital signs: Temperature 98.0 F Pulse Rate 70 Respiratory Rate 11 Blood Pressure 184/104 Pulse Oximetry 97 Oxygen Delivery Me thod Room Air Oxygen Flow Rate 3 Fraction of Inspir ed Oxygen 30 Hydration adequate: Yes Nausea and vomiting: No Pain level: 2 Mental status: Baseline
--- NOTE | 2021-12-11 16:41 | PC.NURSE ---
Meds given late Due to PICC line insertion, hydralazine and cefazolin given late.
[2021-12-11] MEDS: hyDRALAzine 50 mg Tablet 100 MG PO ×2 (17:02→21:01)
--- NOTE | 2021-12-11 17:30 | PM.PN ---
Subjective Subjective: infectious disease progress note chart reviewed WBC trending down to 10 Afebrile over last 36 hrs Blood cx negative since 12/06 wound cx from I&D of foot also with MSSA BECKA taken today, results pending PICC placed cr improving Medications: Reviewed: Yes Medication Review Details: Generic Name Dose Route Start Last Admin Trade Name Willyq PRN Reason Stop Dose Admin Acetaminophen 650 mg 12/04/21 20:03 12/09/21 00:33 Acetaminophen 32 5 Mg Tablet PO 650 mg Q6H PRN Administration Mild/Mod Pain Or Temp >/= 101 Acetaminophen/Code ine Phosphate 1 tab 12/09/21 09:59 12/09/21 10:30 Acetaminophen-Co deine 300-30mg Tab let PO 1 tab Q4H PRN Administration MODERATE PAIN Aspirin 81 mg 12/05/21 09:00 12/10/21 08:21 Aspirin 81 Mg Ec Tablet PO 81 mg DAILY SONIA Administration Atorvastatin Calci um 40 mg 12/05/21 09:00 12/10/21 08:22 Atorvastatin 40 Mg Tablet PO 40 mg DAILY SONIA Administration Clonidine HCl 1 patch 12/07/21 09:30 12/07/21 09:25 Clonidine 0.1 Mg /24 Hr Patch TRANSDERMA 1 patch Q7D SONIA Administration Clonidine HCl 1 patch 12/09/21 12:30 12/09/21 13:05 Clonidine 0.2 Mg /24 Hr Patch TRANSDERMA 1 patch Q7D SONIA Administration Docusate Sodium 100 mg 12/05/21 09:00 12/10/21 08:26 Docusate Sodium 100 Mg Capsule PO 100 mg BID SONIA Administration Ferrous Gluconate 324 mg 12/05/21 08:00 12/10/21 08:22 Ferrous Gluconat e 324 Mg Tablet PO 324 mg BIDWM SONIA Administration Heparin Sodium (Po rcine) 5,000 unit 12/04/21 21:00 12/10/21 08:26 Heparin 5,000 Un it/Ml Inj 1 Ml SUBCUT 5,000 unit Q12H SONIA Administration Cefazolin Sodium 2 ,000 mg/ 50 mls @ 100 mls/ hr 12/08/21 08:00 12/10/21 09:50 Sodium Chloride IV Infused Q8H SONIA Infusion Protocol Lactated Ringer's 1,000 mls @ 125 m ls/hr 12/08/21 08:15 12/10/21 08:42 Lactated Ringers IV 125 mls/hr .Q8H SONIA Administration Insulin Glargine 15 unit 12/08/21 18:00 12/10/21 08:27 Insulin Glargine 100 Units/1 Ml SUBCUT 15 unit BID SONIA Administration Insulin Human Lisp ro 0 unit 12/04/21 21:00 12/10/21 12:28 Insulin Lispro 1 00 Unit/1 Ml SUBCUT 8 unit WM&BEDTIME SONIA Administration Protocol Nifedipine 60 mg 12/09/21 14:15 12/10/21 08:22 Nifedipine Er (2 4 Hr) 30 Mg Tablet PO 60 mg DAILY SONIA Administration Pantoprazole Sodiu m 40 mg 12/04/21 18:31 12/09/21 17:33 Pantoprazole 40 Mg Sdv IVP 40 mg Q24H SONIA Administration Vitals/I&O/Wt Last Vital Signs Temp 98.0 F 12/11/21 14:46 Pulse 64 12/11/21 16:45 Resp 14 12/11/21 16:45 BP 172/94 12/11/21 16:00 Pulse Ox 97 12/11/21 15:00 O2 Del Method 12/11/21 14:30 O2 Flow Rate 3 12/09/21 09:00 FiO2 30 12/11/21 06:00 12/11/21 12/11/21 12/11/21 06:59 14:59 22:59 Intake Total 1360.417 / 2860.417 1039.583 / 1039.583 810.417 / 1850.000 Output Total 1850 / 4225 950 / 950 Balance -489.583 / -1364.583 89.583 / 89.583 810.417 / 900.000 Weight last 48 hrs Weight 135.681 kg Weight 135.227 kg Physical Exam Narrative: patient not examined today, chart reviwed Urinary Catheter Management: Díaz: Cath Placed During This Visit: yes, but has since been removed by the nurse Reason for Continuing Indwelling Catheter: Decision to DC Catheter Urinary Catheter Date of Insertion: 12/05/21 Urinary Catheter Time of Insertion: 01:38 Date Urinary Catheter Removed: 12/11/21 Time Urinary Catheter Discontinued: 07:20 Data : 12/11/21 03:01 12/11/21 03:01 Micro: Microbiology 12/09/21 08:33 Anaerobic Culture - Preliminary Foot - Right 12/09/21 08:33 Gram Stain - Final Foot - Right Tissue Culture - Final Staphylococcus aureus 12/06/21 09:18 Blood Culture - Final Blood NO GROWTH AFTER 5 DAYS 12/06/21 09:15 Blood Culture - Final Blood NO GROWTH AFTER 5 DAYS A&P Assessment and plan (1) Septicemia: Status: Acute (2) Embolic stroke: Status: Acute (3) Cellulitis of foot, right: Status: Acute (4) Sepsis: Status: Acute (5) Acute kidney injury: Status: Acute Plan 51-year-old male admitted with MSSA septicemia complicated by septic embolization to the ACETYLENE CUTTER and acute kidney injury. # MSSA septicemia complicated by septic embolization to ACETYLENE CUTTER and KARI as a result of sepsis vs possible embolization -Last positive blood cx 12/04 -Blood cx from 12/06 remains negative. -S/p I&D of right foot 12/09, improving fever, improving leukocytosis. -Abscess cx also with MSSA -Concern for infective endocarditis given septic embolization, suspicious MV thickening on TTE. BECKA taken today, results pending -At a minimum recommend 6 weeks of iv abx for complicated MSSA septicemia (12/09-01/20), presumed endocarditis. 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
[2021-12-11 17:40] LABS: Glucose Point of Care 166 mg/dL (70-110)
--- NOTE | 2021-12-11 17:40 | PC.NURSE ---
Blood Sugar got @1700, would not transfer over to computer system. Was 166. will admit insulin per sliding scale protocol.
--- NOTE | 2021-12-11 18:10 | PC.NURSE ---
Addendum entered by Annalisa Lucas RN 12/11/21 18:52: R foot dressing changed @1845. Pt experienced pain but denied pain meds. Blanching around incision site. Pedal pulses palpated. Original Note: Shift Summary Díaz catheter removed. BECKA completed today @1300. Midline insertion completed. Pt tolerated all well. Multiple episodes of high BP noted. Dr. Espinoza notified. Edema previously in hands and feet is gone. Pt reports the Midline location is sore/tender. Refused Tylenol. Pt has had family at bedside throughout my shift.
[2021-12-11 20:51] LABS: Glucose Point of Care 242 mg/dL (70-110)
[2021-12-11] MEDS: insulin glargine 100 units/1 mL 35 UNIT SUBCUT (21:03)
[2021-12-12] VITALS (50 sets, daily range): BP systolic 135–194; BP diastolic 66–109; PULSE 59–108; RESP 13–27; TEMP 36.7–37; O2SAT 82–99
[2021-12-12] MEDS: ceFAZolin 2,000 MG in sodium chloride 0.9% (plus) 50 ML 100 MG IV ×4 (01:59→23:59)
[2021-12-12 04:59] LABS: Basophils # 0.1 10^3/uL (0.0-0.1); Basophils % 0.5 %; Eosinophils # 0.4 10^3/uL (0.0-0.8); Hematocrit 34.1 % (42.0-52.0); Hemoglobin 10.7 g/dL (11.7-16.6); Lymphocytes # 1.9 10^3/uL (0.8-4.8); Lymphocytes % 16.2 %; Mean Corpuscular HGB Conc 31.4 g/dL (30.0-36.0); Mean Corpuscular Hemoglobin 29.1 pg (28.0-34.0); Mean Corpuscular Volume 92.7 fl (80-94); Mean Platelet Volume 9.5 fL (7.4-10.4); Monocytes # 0.7 10^3/uL (0.2-0.9); Neutrophils # 8.34 10^3/uL (1.8-7.7); Neutrophils % 69.8 %; Nucleated Red Blood Cells % 0 %; Platelet Count 363 10^3/cmm (130-400); Red Blood Count 3.68 10^6/uL (4.1-5.3); Red Cell Distribution Width 13.7 % (12.1-15.1)
[2021-12-12] MEDS: lactated ringers 1,000 ML 125 ML IV (05:07)
[2021-12-12 05:32] LABS: Alanine Aminotransferase 17 U/L (0-41); Albumin Level 2.5 g/dL (3.5-5.2); Alkaline Phosphatase 134 IU/L (40-130); Anion Gap 12.1 (5-19); Aspartate Amino Transferase 24 U/L (0-40); Blood Urea Nitrogen 26 mg/dL (6-20); Calcium 8.5 mg/dL (8.5-10.5); Carbon Dioxide 28 mmol/L (22-29); Chloride 101 mmol/L (98-107); Glomerular Filtration Rate 49.1 mL/min (90-130); Glucose 251 mg/dL (65-115); Magnesium 1.7 mg/dL (1.7-2.3); Osmolality Calculated 297 mOsm/kg (285-295); Phosphorus 3.3 mg/dL (2.5-4.5); Potassium 4.1 mmol/L (3.5-5.1); Sodium 137 mmol/L (136-145); Total Bilirubin 0.2 mg/dL (0.15-1.2); Total Protein 6.5 g/dL (6.6-8.7)
[2021-12-12 05:40] LABS: Creatinine Clr Calc Pharmacy 78.7864
--- NOTE | 2021-12-12 07:19 | PC.NURSE ---
DR SILVA IN TO SEE PT THIS MORNING. DRESSING CHANGE PERFORMED BY DR SILVA AND THIS NURSE. PT DOES NOT HAVE ANY COMPLAINTS OF PAIN. PT IS SITTING IN CHAIR AND HAS NO REQUESTS AT THIS TIME.
[2021-12-12 07:29] LABS: Glucose Point of Care 234 mg/dL (70-110)
[2021-12-12] MEDS: atorvastatin 40 mg Tablet PO (08:14)
[2021-12-12] MEDS: NIFEdipine ER (24 hr) 30 mg Tablet 90 MG PO (08:14)
[2021-12-12] MEDS: aspirin 81 mg EC Tablet PO (08:14)
[2021-12-12] MEDS: heparin 5,000 unit/mL INJ 1 mL 5000 UNIT SUBCUT ×2 (08:14→20:12)
[2021-12-12] MEDS: ferrous gluconate 324 mg Tablet PO ×2 (08:14→17:43)
[2021-12-12] MEDS: docusate sodium 100 mg Capsule PO ×2 (08:14→17:43)
[2021-12-12] MEDS: insulin lispro 100 unit/1 mL SUBCUT ×4 (08:14→20:12)
[2021-12-12] MEDS: pantoprazole DR 40 mg Tablet PO (08:14)
[2021-12-12] MEDS: hyDRALAzine 50 mg Tablet 100 MG PO ×3 (08:14→20:11)
--- NOTE | 2021-12-12 10:13 | PC.CHAP ---
Pastoral Care Encounter/Spiritual Assessment Type of Contact [] Declined federal aid coordinator visit [] Patient/Family/Request visit [] Outpatient visit [] Follow-up visit [] Physician referral [] Code/Alert [x] Routine visit [] Staff referral [] Actively dying [x] Patient sleeping [] Family support [] [] Out of room [] Palliative care [] [] Receiving care in room [] Pre-surgical visit [] Trauma [] Long length of stay [x] ICU visit [] Other: Relational/Emotional Strength [] Patient feels connected with others/family/visitors/staff [] Distress [] Loneliness/isolation [] Abandonment Spirituality of Patient [] Person of Fior [] Attends Moravian of their Fior [] Believes in Prayer [] Reads Bible or Congregation materials [] There are Spiritual issues to be addressed Director Of Teacher Education Interventions [x] Prayer [] Active listening [] Non-anxious presence [] Spiritual/emotional support [] Crisis/trauma care [] Spiritual counseling [] Bereavement support [] Provided bereavement packet [] Provided Bible/devotional materials [] Provided toy/stuffed animal, coloring book to patient or family member [] Provided Communion [] Anointing/Middle Bass [] Salvation [x] Completed spiritual assessment [] Other: Impact on Illness or Injury [] Angry [] Fearful [] Anxious [] Often cries [] Exhaustion [] Unable to work [] Unable to attend sikh [] Unable to walk/stand [] Unable to read [] Unable to drive [] Unable to eat/drink [] Unable to sleep [] Unable to be with family [] Patient intubated [] Other: Summary Time spent with patient
[2021-12-12 11:49] LABS: Glucose Point of Care 239 mg/dL (70-110)
--- NOTE | 2021-12-12 15:52 | XRR_ITS ---
PROCEDURE INFORMATION: Exam: XR Chest Exam date and time: 12/12/2021 3:54 PM Age: 51 years old Clinical indication: Device placement; Picc TECHNIQUE: Imaging protocol: Radiologic exam of the chest. Views: 1 view. COMPARISON: CR XR chest 1V portable [id number] 12/11/2021 4:18 PM FINDINGS: Tubes, catheters and devices: Right PICC line terminates at the cavoatrial junction. Lungs: Unremarkable. No consolidation. Pleural spaces: Unremarkable. No pleural effusion. No pneumothorax. Heart/Mediastinum: Similar cardiomegaly. Bones/joints: Unremarkable. XR/XR chest 1V portable [id number] IMPRESSION: Proper positioning of right PICC line.
[2021-12-12] MEDS: acetaminophen-codeine 300-30mg Tablet 1 TAB PO (16:32)
--- NOTE | 2021-12-12 17:05 | P.PN_ITS ---
Subjective Medications: Reviewed: Yes Medication Review Details: 3Generic Name Dose Route Start Last Admin Trade Name Debra PRN Reason Stop Dose Admin Acetaminophen 650 mg 12/04/21 20:03 12/09/21 00:33 Acetaminophen 32 5 Mg Tablet PO 650 mg Q6H PRN Administration Mild/Mod Pain Or Temp >/= 101 Acetaminophen/Code ine Phosphate 1 tab 12/09/21 09:59 12/09/21 10:30 Acetaminophen-Co deine 300-30mg Tab let PO 1 tab Q4H PRN Administration MODERATE PAIN Aspirin 81 mg 12/05/21 09:00 12/10/21 08:21 Aspirin 81 Mg Ec Tablet PO 81 mg DAILY SONIA Administration Atorvastatin Calci um 40 mg 12/05/21 09:00 12/10/21 08:22 Atorvastatin 40 Mg Tablet PO 40 mg DAILY SONIA Administration Clonidine HCl 1 patch 12/07/21 09:30 12/07/21 09:25 Clonidine 0.1 Mg /24 Hr Patch TRANSDERMA 1 patch Q7D SONIA Administration Clonidine HCl 1 patch 12/09/21 12:30 12/09/21 13:05 Clonidine 0.2 Mg /24 Hr Patch TRANSDERMA 1 patch Q7D SONIA Administration Docusate Sodium 100 mg 12/05/21 09:00 12/10/21 08:26 Docusate Sodium 100 Mg Capsule PO 100 mg BID SONIA Administration Ferrous Gluconate 324 mg 12/05/21 08:00 12/10/21 08:22 Ferrous Gluconat e 324 Mg Tablet PO 324 mg BIDWM SONIA Administration Heparin Sodium (Po rcine) 5,000 unit 12/04/21 21:00 12/10/21 08:26 Heparin 5,000 Un it/Ml Inj 1 Ml SUBCUT 5,000 unit Q12H SONIA Administration Cefazolin Sodium 2 ,000 mg/ 50 mls @ 100 mls/ hr 12/08/21 08:00 12/10/21 09:50 Sodium Chloride IV Infused Q8H SONIA Infusion Protocol Lactated Ringer's 1,000 mls @ 125 m ls/hr 12/08/21 08:15 12/10/21 08:42 Lactated Ringers IV 125 mls/hr .Q8H SONIA Administration Insulin Glargine 15 unit 12/08/21 18:00 12/10/21 08:27 Insulin Glargine 100 Units/1 Ml SUBCUT 15 unit BID SONIA Administration Insulin Human Lisp ro 0 unit 12/04/21 21:00 12/10/21 12:28 Insulin Lispro 1 00 Unit/1 Ml SUBCUT 8 unit WM&BEDTIME SONIA Administration Protocol Nifedipine 60 mg 12/09/21 14:15 12/10/21 08:22 Nifedipine Er (2 4 Hr) 30 Mg Tablet PO 60 mg DAILY SONIA Administration Pantoprazole Sodiu m 40 mg 12/04/21 18:31 12/09/21 17:33 Pantoprazole 40 Mg Sdv IVP 40 mg Q24H SONIA Administration Vitals/I&O/Wt Last Vital Signs Temp 98.0 F 12/12/21 16:00 Pulse 83 12/12/21 16:00 Resp 19 H 12/12/21 16:00 BP 176/77 12/12/21 16:00 Pulse Ox 97 12/12/21 16:00 O2 Del Method 12/12/21 16:00 O2 Flow Rate 3 12/09/21 09:00 FiO2 30 12/12/21 06:00 12/12/21 12/12/21 12/12/21 06:59 14:59 22:59 Intake Total 1450 / 3539.583 670 / 670 1050 / 1720 Output Total 900 / 2950 1500 / 1500 Balance 550 / 589.583 -830 / -830 1050 / 220 Weight last 48 hrs Weight 135.681 kg Physical Exam Const: COMMON NORMALS: patient oriented x3 HENMT: COMMON NORMALS: normocephalic, atraumatic and hearing grossly normal bilaterally HEAD & SCALP: normocephalic and atraumatic Resp: COMMON NORMALS: clear to auscultation bilaterally AUSCULTATION: clear to auscultation bilaterally Cardio: COMMON NORMALS: regular rate, regular rhythm, S1 normal heart sound present, S2 normal heart sound present, No gallops present (Cardio), No murmurs present (Cardio), No rub (Cardio) and Peripheral pulses 2+ throughout RATE: regular rate RHYTHM: regular rhythm HEART SOUNDS: S1 normal heart sound present and S2 normal heart sound present PERIPHERAL PULSES: Peripheral pulses 2+ throughout GI: COMMON NORMALS: Normal to inspection, nondistended, normoactive bowel sounds present, Soft to palpation, non-tender, No hepatosplenomegaly present and no masses AUSCULTATION: Yes normoactive bowel sounds PALPATION: Yes Soft to palpation and Yes No hepatosplenomegaly present RECTAL EXAM: Yes deferred Extremity: COMMON NORMALS: no clubbing, cyanosis or edema and no pedal edema Neuro: COMMON NORMALS: patient oriented x3 Urinary Catheter Management: Díaz: Cath Placed During This Visit: yes, but has since been removed by the nurse Reason for Continuing Indwelling Catheter: Decision to DC Catheter Urinary Catheter Date of Insertion: 12/05/21 Urinary Catheter Time of Insertion: 01:38 Date Urinary Catheter Removed: 12/11/21 Time Urinary Catheter Discontinued: 07:20 Data : 12/12/21 04:40 12/12/21 04:40 Micro: Microbiology 12/09/21 08:33 Anaerobic Culture - Preliminary Foot - Right 12/09/21 08:33 Gram Stain - Final Foot - Right Tissue Culture - Final Staphylococcus aureus A&P Assessment and plan (1) Septicemia: Status: Acute (2) Embolic stroke: Status: Acute (3) Cellulitis of foot, right: Status: Acute (4) Sepsis: Status: Acute (5) Acute kidney injury: Status: Acute Plan 51-year-old with past medical history of hypertension diabetes chronic osteomyelitis of the right foot Initially sent to ER from podiatry clinic for tachycardia.? Currently is being managed for. Assessment: Sepsis secondary to right foot chronic osteomyelitis/cellulitis KARI Acute embolic stroke: Presumed to be septic embolization. Diabetes Hypertension Plan: Blood culture: MSSA CT foot RT wo con: No definite evidence for active osteomyelitis. Resection of the mid and distal 1st metatarsal. Probable cellulitis and ulceration in the medial great toe and in the region of the 1st metatarsophalangeal joint. Subcutaneous soft tissue edema/cellulitis in the dorsal foot. MR foot RT wo con: Diffuse cellulitis with soft tissue edema worse involving the dorsal midfoot soft tissues overlying the tarsal bones and proximal metatarsals.Lobulated T2 hyperintense fluid collection with septations overlying the dorsal aspect of the midfoot extending laterally. This extends to the dorsal intertarsal soft tissues with surrounding cellulitis. Findings suspicious for phlegmon/abscess. Some of this may represent chronic inflammatory fluid.No definite evidence of acute osteomyelitis. CT head wo con:No acute intracranial abnormality demonstrated. CT abdomen pelvis wo con:No renal obstruction. MR head wo con: Scattered punctate infarcts bilaterally, compatible with an embolic etiology. CV carotid duplex BI: No flow-limiting stenosis. 2D Echo : Normal left ventricular size and systolic function, EF 57 %. Moderate left ventricular hypertrophy. Grade II/IV diastolic?dysfunction, moderately elevated filling pressures. ?Mildly increased left atrial size. Thickened mitral valve. Trace mitral valve regurgitation.?Thickened aortic valve. Trace aortic valve regurgitation. BECKA: Plan: S/P I&D of the right foot. Last blood culture drawn on has been negative so far Abscess culture: MSSA Currently on cefazolin IV. Plan is to continue for 6 weeks. PICC line Placed Continue aspirin and statin Stop LR Monitor BMP Avoid nephrotoxic's Continue nifedipine, clonidine, hydralazine. Anticoagulation has been avoided to prevent hemorrhagic transformation of septic emboli. Continue Lantus, sliding's insulin. On heparin for DVT prophylaxis Attestations Medical Necessity Statement*: In the hospital for management of sepsis. 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
[2021-12-12 17:35] LABS: Glucose Point of Care 190 mg/dL (70-110)
--- NOTE | 2021-12-12 18:53 | PC.NURSE ---
SHIFT SUMMARY: PT HAS HAD A GOOD, UNEVENTFUL SHIFT. PT HAS HAD MINIMAL COMPLAINTS OF PAIN. PT HAS BEEN UP TO THE CHAIR FOR A MAJORITY OF THE DAY. DRESSING CHANGE PERFORMED THIS EVENING BY THIS NURSE. PT TOLERATED WELL. EDUCATION PROVIDED TO BOTH THE PT AND FAMILY ON HOW TO DO THIS. PICC LINE WAS ALSO PLACED THIS EVENING. PLAN TO DISCHARGE TOMORROW. WILL CONTINUE TO MONITOR AND CARE FOR PT THROUGHOUT HIS STAY.
[2021-12-12] MEDS: insulin glargine 100 units/1 mL 35 UNIT SUBCUT (20:12)
[2021-12-12 20:21] LABS: Glucose Point of Care 356 mg/dL (70-110)
[2021-12-13] VITALS (23 sets, daily range): BP systolic 135–172; BP diastolic 66–88; PULSE 59–81; RESP 12–20; TEMP 36.6; O2SAT 95–100
[2021-12-13 07:52] LABS: Glucose Point of Care 170 mg/dL (70-110)
--- NOTE | 2021-12-13 08:37 | P.PN_ITS ---
Subjective Subjective: Patient seen bedside, 4 days status post I&D to the right foot. Denies any pain in the right lower extremity. Denies subjective fevers or chills. Patient denies any subjective nausea, vomiting, fever, chills, shortness of breath or chest pain. Vitals/I&O/Wt Last Vital Signs Temp 97.8 F 12/13/21 00:15 Pulse 73 12/13/21 06:00 Resp 17 12/13/21 04:00 BP 138/78 12/13/21 04:00 Pulse Ox 97 12/13/21 04:16 O2 Del Method 12/12/21 16:00 O2 Flow Rate 3 12/09/21 09:00 FiO2 30 12/13/21 04:16 12/12/21 12/13/21 12/13/21 22:59 06:59 14:59 Intake Total 1530 / 2200 Output Total 700 / 2200 800 / 3000 Balance 830 / 0 -800 / -800 Physical Exam Narrative: Patient is alert and oriented ?3 and in no acute distress.? The following is a focused bilateral lower extremity exam. VASCULAR: Dorsalis pedis palpable +2 bilaterally, posterior tibial arteries palpable +2 bilaterally.? Capillary refill time less than 3 seconds to the distal hallux bilaterally. Calf is supple and nontender proximally and distally.? Edema to the right foot and leg. NEUROLOGICAL: Protective sensation intact 0/10 sites, tested with [place] monofilament to bilateral feet. DERMATOLOGICAL: Decreased erythema and decrease in edema to the right lower extremity. Surgical wound from abscess drainage 8 cm in length, 2 cm in width exposed to tendon. Scant purulence expressed. Overall improved appearance with increased granular tissue. MUSCULOSKELETAL: No pain with posterior calf squeeze bilaterally. Muscle strength 5 out of 5 in all three cardinal planes to the right foot and ankle. Urinary Catheter Management: Díaz: Cath Placed During This Visit: yes, but has since been removed by the nurse Reason for Continuing Indwelling Catheter: Decision to DC Catheter Urinary Catheter Date of Insertion: 12/05/21 Urinary Catheter Time of Insertion: 01:38 Date Urinary Catheter Removed: 12/11/21 Time Urinary Catheter Discontinued: 07:20 Data : 12/12/21 04:40 12/12/21 04:40 Micro: Microbiology 12/07/21 19:25 Blood Culture - Final Blood NO GROWTH AFTER 5 DAYS 12/07/21 19:20 Blood Culture - Final Blood NO GROWTH AFTER 5 DAYS 12/09/21 08:33 Anaerobic Culture - Preliminary Foot - Right A&P Assessment and plan (1) Cellulitis of foot, right: Status: Acute (2) Chronic osteomyelitis of right foot: Status: Acute (3) Diabetic peripheral neuropathy associated with type 2 diabetes mellitus: Status: Acute Plan Patient is febrile with leukocytosis, ESR 68. X-ray taken 12/04/2021 shows stable postoperative changes with resection of the base of the proximal phalanx and resection of the head of the first metatarsal. Comparison view that was taken 07/10/2021 actually shows improvement of disuse osteopenia with small erosive changes at the distal phalanx has now resolved. Osteotomy site through the base of the proximal phalanx and at the first metatarsal are well corticated without further osseous destruction. Bony fragments within the interspace are well corticated have smooth rounded appearance without resorption or periosteal reaction. CT scan not indicative of osteomyelitis or drainable abscess. MRI is negative for acute osteomyelitis. Fluid collection to the dorsal lateral right foot. Interim update 12/13/2021 4 days status post incision and drainage of abscess right foot date of operation 12/09/2021 Right foot improving with decreased erythema, decreased edema, showing some new granulation within the wound bed appearing more viable Will continue twice daily saline wet-to-dry Weightbearing okay Elevate right foot while resting Okay for discharge from podiatry standpoint. PICC line is in place and antibiotic selection per infectious disease. Follow-up in podiatry clinic for right foot next week. 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
[2021-12-13] MEDS: aspirin 81 mg EC Tablet PO (08:55)
[2021-12-13] MEDS: atorvastatin 40 mg Tablet PO (08:55)
[2021-12-13] MEDS: insulin lispro 100 unit/1 mL SUBCUT ×2 (08:55→11:45)
[2021-12-13] MEDS: docusate sodium 100 mg Capsule PO (08:55)
[2021-12-13] MEDS: ferrous gluconate 324 mg Tablet PO (08:55)
[2021-12-13] MEDS: NIFEdipine ER (24 hr) 30 mg Tablet 90 MG PO (08:56)
[2021-12-13] MEDS: heparin 5,000 unit/mL INJ 1 mL 5000 UNIT SUBCUT (08:56)
[2021-12-13] MEDS: pantoprazole DR 40 mg Tablet PO (08:56)
[2021-12-13] MEDS: hyDRALAzine 50 mg Tablet 100 MG PO (08:56)
[2021-12-13] MEDS: ceFAZolin 2,000 MG in sodium chloride 0.9% (plus) 50 ML 100 MG IV (09:06)
--- NOTE | 2021-12-13 09:36 | PC.NURSE ---
Dr. Espinoza at bedside, informed patient he will D/C today
[2021-12-13 11:40] LABS: Glucose Point of Care 340 mg/dL (70-110)
--- NOTE | 2021-12-13 11:55 | PC.NURSE ---
Social service confirmed Home Health and home abx are set up
--- NOTE | 2021-12-13 11:56 | PM.DCS ---
Discharge Providers Date of Admission: 12/04/21 20:40 Date of Discharge: December 13, 2021 Attending Provider at Admission: Yasir Esquivel MD Attending Provider at Discharge: Praneeth Espinoza MD Primary Care Provider: DAVID Pack Diagnoses at Discharge Discharge Diagnosis (1) Cellulitis of foot, right: Status: Acute (2) Chronic osteomyelitis of right foot: Status: Acute (3) Diabetic peripheral neuropathy associated with type 2 diabetes mellitus: Status: Acute Reason for Visit Reason for Visit: abnormal heart rate Hospital Course Hospital Course 51-year-old with past medical history of hypertension diabetes chronic osteomyelitis of the right foot Initially sent to ER from podiatry clinic for tachycardia.? Currently is being managed for. During the hospital stay he was managed for: Sepsis secondary to right foot chronic osteomyelitis/cellulitis, KARI , Acute embolic stroke: Presumed to be septic embolization. Diabetes, uncontrolled Hypertension. Blood culture: MSSA, abscess culture:MSSA, repeat blood culture negative. CT foot RT wo con: No definite evidence for active osteomyelitis. Resection of the mid and distal 1st metatarsal. Probable cellulitis and ulceration in the medial great toe and in the region of the 1st metatarsophalangeal joint. Subcutaneous soft tissue edema/cellulitis in the dorsal foot. MR foot RT wo con: Diffuse cellulitis with soft tissue edema worse involving the dorsal midfoot soft tissues overlying the tarsal bones and proximal metatarsals.Lobulated T2 hyperintense fluid collection with septations overlying the dorsal aspect of the midfoot extending laterally. This extends to the dorsal intertarsal soft tissues with surrounding cellulitis. Findings suspicious for phlegmon/abscess. Some of this may represent chronic inflammatory fluid.No definite evidence of acute osteomyelitis. CT head wo con:No acute intracranial abnormality demonstrated. CT abdomen pelvis wo con:No renal obstruction. MR head wo con: Scattered punctate infarcts bilaterally, compatible with an embolic etiology. CV carotid duplex BI: No flow-limiting stenosis. 2D Echo : Normal left ventricular size and systolic function, EF 57 %. Moderate left ventricular hypertrophy. Grade II/IV diastolic?dysfunction, moderately elevated filling pressures. ?Mildly increased left atrial size. Thickened mitral valve. Trace mitral valve regurgitation.?Thickened aortic valve. Trace aortic valve regurgitation. BECKA:?No intracardiac masses/thrombi/vegetations, Mild mitral regurgitation with trace of tricuspid regurgitation. ?Normal cardiac chamber sizes.? No intracardiac shunts, based on color-flow Doppler ?examination and saline contrast injection Minimally thickened noncoronary cusp of the aortic valve. S/P I&D of the right foot., Initially was kept on Vanco and cefepime and later antibiotic was de-escalated to cefazolin 2G every 8 hours, PICC line has been placed , he will continue with IV antibiotics for 6 weeks. For acute embolic stroke He was continued on aspirin and statin anticoagulation was avoided to prevent hemorrhagic transformation. For his KARI likely secondary to sepsis: He was managed conservatively with IV fluids, to which he responded well, Serum creatinine has progressed towards the baseline, on discharge lisinopril and Lasix has been kept on hold for a week Patient will do repeat BMP in a week and follow-up with his primary care physician, at that point decision regarding lisinopril and Lasix can be taken. Patient will continue to follow primary care physician podiatry and ID as an outpatient. Overall patient responded well to above medical management and is being discharged in stable condition to home. Physical Exam Const: COMMON NORMALS: patient oriented x3 HENMT: COMMON NORMALS: normocephalic, atraumatic and hearing grossly normal bilaterally HEAD & SCALP: normocephalic and atraumatic Resp: COMMON NORMALS: clear to auscultation bilaterally AUSCULTATION: clear to auscultation bilaterally Cardio: COMMON NORMALS: regular rate, regular rhythm, S1 normal heart sound present, S2 normal heart sound present, No gallops present (Cardio), No murmurs present (Cardio), No rub (Cardio) and Peripheral pulses 2+ throughout RATE: regular rate RHYTHM: regular rhythm HEART SOUNDS: S1 normal heart sound present and S2 normal heart sound present PERIPHERAL PULSES: Peripheral pulses 2+ throughout GI: COMMON NORMALS: Normal to inspection, nondistended, normoactive bowel sounds present, Soft to palpation, non-tender, No hepatosplenomegaly present and no masses AUSCULTATION: Yes normoactive bowel sounds PALPATION: Yes Soft to palpation and Yes No hepatosplenomegaly present RECTAL EXAM: Yes deferred Extremity: COMMON NORMALS: no clubbing, cyanosis or edema and no pedal edema Neuro: COMMON NORMALS: patient oriented x3 Urinary Catheter Management: Díaz: Cath Placed During This Visit: yes, but has since been removed by the nurse Reason for Continuing Indwelling Catheter: Decision to DC Catheter Urinary Catheter Date of Insertion: 12/05/21 Urinary Catheter Time of Insertion: 01:38 Date Urinary Catheter Removed: 12/11/21 Time Urinary Catheter Discontinued: 07:20 Discharge Data Studies Completed and Pending Completed Studies During Hospitalization Category Date Time Status CT abdomen pelvis wo con [id number] Routine Cat Scan 12/05/21 02:[address] foot RT wo con* [id number] Urgent Cat Scan 12/04/21 19:[address] head wo con* [id number] Stat Cat Scan 12/05/21 16:41 Completed CXRP [XR chest 1V portable [id number]] Routine Exams 12/12/21 15:52 Completed CXRP [XR chest 1V portable [id number]] Stat Exams 12/06/21 14:12 Completed XR chest 1V portable [id number] Stat Exams 12/04/21 16:27 Completed XR chest 1V portable [id number] Stat Exams 12/11/21 15:05 Completed XR foot RT min 3V* [id number] Stat Exams 12/04/21 17:04 Completed MR foot RT wo con* [id number] Routine MRI 12/07/21 09:30 Completed MR head wo con* [id number] Routine MRI 12/05/21 17:02 Completed CV carotid duplex BI* [id number] Routine Ultrasound 12/05/21 17:30 Completed CV. echo transesophageal [id number] Routine Ultrasound 12/11/21 12:45 Completed CV. echo w/w bubble cont [id number] Routine Ultrasound 12/05/21 19:15 Completed Pending at discharge Category Date Time Status Anaerobic Culture Routine Lab 12/09/21 08:33 Results Comprehensive Metabolic Panel AM LABS Lab 12/14/21 04:00 Ordered Comprehensive Metabolic Panel AM LABS Lab 12/15/21 04:00 Ordered Comprehensive Metabolic Panel AM LABS Lab 12/16/21 04:00 Ordered Magnesium AM LABS Lab 12/14/21 04:00 Ordered Magnesium AM LABS Lab 12/15/21 04:00 Ordered Magnesium AM LABS Lab 12/16/21 04:00 Ordered Phosphorus AM LABS Lab 12/14/21 04:00 Ordered Phosphorus AM LABS Lab 12/15/21 04:00 Ordered Phosphorus AM LABS Lab 12/16/21 04:00 Ordered Radiology Impressions Foot X-Ray 12/04/21 17:04 IMPRESSION: No acute skeletal finding. Foot CT 12/04/21 19:21 IMPRESSION: 1. No definite evidence for active osteomyelitis. 2. Resection of the mid and distal 1st metatarsal. 3. Probable cellulitis and ulceration in the medial great toe and in the region of the 1st metatarsophalangeal joint. 4. Subcutaneous soft tissue edema/cellulitis in the dorsal foot. No definite discrete abscess identified. Abdomen/Pelvis CT 12/05/21 02:39 IMPRESSION: 1. No renal obstruction. 2. Numerous small indeterminate lymph nodes along the RIGHT common and external iliac chain with the largest measuring 13 mm. These may be reactive but are borderline enlarged. Patient has a history of osteomyelitis of the RIGHT foot which may explain these lymph nodes. 3. Díaz catheter in a nondistended urinary bladder. 4. There are a few very minimal sclerotic bone lesions in the pelvis and posterior L4 vertebral body. These may be benign bone islands. Head CT 12/05/21 16:41 IMPRESSION: No acute intracranial abnormality demonstrated. ASSESSMENT: ASPECTS (Pauline Stroke Program Early CT Score) is 10. Head MRI 12/05/21 17:02 IMPRESSION: Scattered punctate infarcts bilaterally, compatible with an embolic etiology. Foot MRI 12/07/21 09:30 IMPRESSION: 1. Prior postoperative changes partial resection of the mid and distal 1st metatarsal. 2. Diffuse cellulitis with soft tissue edema worse involving the dorsal midfoot soft tissues overlying the tarsal bones and proximal metatarsals. 3. Lobulated T2 hyperintense fluid collection with septations overlying the dorsal aspect of the midfoot extending laterally. This extends to the dorsal intertarsal soft tissues with surrounding cellulitis. Findings suspicious for phlegmon/abscess. Some of this may represent chronic inflammatory fluid. 4. No definite evidence of acute osteomyelitis. Chest X-Ray 12/12/21 15:52 IMPRESSION: Proper positioning of right PICC line. Laboratory Results WBC 12.0 10^3/uL (4.0-10.0) H 12/12/21 04:40 RBC 3.68 10^6/uL (4.1-5.3) L 12/12/21 04:40 Hgb 10.7 g/dL (11.7-16.6) L 12/12/21 04:40 Hct 34.1 % (42.0-52.0) L 12/12/21 04:40 MCV 92.7 fl (80-94) 12/12/21 04:40 MCH 29.1 pg (28.0-34.0) 12/12/21 04:40 MCHC 31.4 g/dL (30.0-36.0) 12/12/21 04:40 RDW 13.7 % (12.1-15.1) 12/12/21 04:40 Plt Count 363 10^3/cmm (130-400) 12/12/21 04:40 MPV 9.5 fL (7.4-10.4) 12/12/21 04:40 Neut % (Auto) 69.8 % 12/12/21 04:40 Lymph % (Auto) 16.2 % 12/12/21 04:40 [place] % (Auto) 6.0 % 12/12/21 04:40 Eos % (Auto) 3.0 % 12/12/21 04:40 Baso % (Auto) 0.5 % 12/12/21 04:40 Neut # (Auto) 8.34 10^3/uL (1.8-7.7) H 12/12/21 04:40 Lymph # (Auto) 1.9 10^3/uL (0.8-4.8) 12/12/21 04:40 [place] # (Auto) 0.7 10^3/uL (0.2-0.9) 12/12/21 04:40 Eos # (Auto) 0.4 10^3/uL (0.0-0.8) 12/12/21 04:40 Baso # (Auto) 0.1 10^3/uL (0.0-0.1) 12/12/21 04:40 Nucleated RBC % (auto) 0 % 12/12/21 04:40 Nucleated RBCs # 0.0 /100WBC 12/12/21 04:40 ESR 68 mm/hr (0-10) H 12/04/21 16:42 APTT Cancelled 12/11/21 04:01 Specimen Type Arterial 12/05/21 12:05 Sample Site Radial, left 12/05/21 12:05 ABG pH 7.42 (7.35-7.45) 12/05/21 12:05 ABG pCO2 33.5 mmHg (35-45) L 12/05/21 12:05 ABG pO2 88.9 mmHg (80.0-100.0) 12/05/21 12:05 ABG HCO3 21.8 mmol/L (22-26) L 12/05/21 12:05 ABG O2 Saturation 97.1 12/05/21 12:05 ABG Base Excess -2.1 mmol/L (-2.0-2.0) L 12/05/21 12:05 Eliu Test Pos 12/05/21 12:05 A-a O2 Gradient 14.4 mmHg (5-10) H 12/05/21 12:05 Hematocrit 38.7 % (42-52) L 12/05/21 12:05 Hgb O2 Saturation 95.1 % (95-100) 12/05/21 12:05 Carboxyhemoglobin 1.5 %THgb (0.4-20.1) 12/05/21 12:05 Methemoglobin 0.5 % (0.4-1.5) 12/05/21 12:05 Total Hemoglobin 12.6 g/dL (14-18) L 12/05/21 12:05 Sodium 134.0 mmol/L (131-143) 12/05/21 12:05 Potassium 4.5 mmol/L (3.5-5.0) 12/05/21 12:05 Glucose 244.0 mg/dL (70-115) H 12/05/21 12:05 Ionized Calcium 1.1 mmol/L (1.1-1.4) 12/05/21 12:05 O2 Delivery Device Nc 12/05/21 12:05 O2 Liters/Min 3.5 % 12/05/21 12:05 FiO2 34.0 % 12/05/21 12:05 Inspector And Adjuster [employer] ID [place] 12/05/21 12:05 Sodium 137 mmol/L (136-145) 12/12/21 04:40 Potassium 4.1 mmol/L (3.5-5.1) 12/12/21 04:40 Chloride 101 mmol/L (98-107) 12/12/21 04:40 Carbon Dioxide 28 mmol/L (22-29) 12/12/21 04:40 Anion Gap 12.1 (5-19) 12/12/21 04:40 BUN 26 mg/dL (6-20) H 12/12/21 04:40 Creatinine 1.5 mg/dL (0.7-1.2) H 12/12/21 04:40 GFR Calculation 49.1 mL/min (90-130) L 12/12/21 04:40 Glucose 251 mg/dL (65-115) H 12/12/21 04:40 POC Glucose 340 mg/dL (70-110) H 12/13/21 11:12 Estimat Average Glucose 174 12/05/21 01:54 Hemoglobin A1c 7.7 % (4.0-6.0) H 12/05/21 01:54 Calculated Osmolality 297 mOsm/kg (285-295) H 12/12/21 04:40 Lactate 2.0 mmol/L (0.5-2.2) 12/05/21 01:54 Uric Acid 11.2 mg/dL (3.4-7.0) H 12/06/21 09:18 Calcium 8.5 mg/dL (8.5-10.5) 12/12/21 04:40 Phosphorus 3.3 mg/dL (2.5-4.5) 12/12/21 04:40 Magnesium 1.7 mg/dL (1.7-2.3) 12/12/21 04:40 Iron 16 ug/dL (59-158) L 12/04/21 16:42 TIBC 284 mcg/dl 12/04/21 16:42 % Saturation 5.6 % (20-50) L 12/04/21 16:42 Unsat Iron Binding 268 ug/dL (112-347) 12/04/21 16:42 Total Bilirubin 0.2 mg/dL (0.15-1.2) 12/12/21 04:40 AST 24 U/L (0-40) 12/12/21 04:40 ALT 17 U/L (0-41) 12/12/21 04:40 Alkaline Phosphatase 134 IU/L (40-130) H 12/12/21 04:40 Creatine Kinase 101 U/L (39-308) 12/10/21 03:12 Troponin T Baseline 21 ng/L (0-15) H 12/04/21 16:42 Troponin T 120 Minute 25.83 ng/L (0-15) H 12/04/21 18:38 Delta Troponin T 4.83 ABS# (0-10) 12/04/21 18:38 Troponin T Hi Sens 6Hr 33.25 ng/L (0-15) H 12/05/21 01:54 Troponin T Hi Sens 6Hr Delta 12.25 ng/L (0-12) H* 12/05/21 01:54 C-Reactive Protein 363.9 mg/L (0.0-4.9) H 12/04/21 16:42 NT-Pro-B Natriuret Pep 702 pg/mL (0-125) H 12/04/21 16:42 Total Protein 6.5 g/dL (6.6-8.7) L 12/12/21 04:40 Albumin 2.5 g/dL (3.5-5.2) L 12/12/21 04:40 Globulin 4.0 g/dL (1.3-4.6) 12/12/21 04:40 Triglycerides 126 mg/dL (0-150) 12/05/21 01:54 Cholesterol 94 mg/dL (0-200) 12/05/21 01:54 LDL Cholesterol, Calc 28 mg/dL (50-129) L 12/05/21 01:54 Total VLDL Cholesterol 25 mg/dL (0-30) 12/05/21 01:54 HDL Cholesterol 41 mg/dL (60-100) L 12/05/21 01:54 Cholesterol/HDL Ratio 2.29 mg/dL (1.0-5.00) 12/05/21 01:54 Amylase 18 U/L (28-100) L 12/04/21 16:42 Lipase 17 U/L (13-60) 12/04/21 16:42 Vitamin B12 475 pg/mL (232-1245) 12/04/21 16:42 25-OH Vitamin D Total 17 ng/mL (30-100) L 12/07/21 02:28 Folate 16.0 ng/mL (4.5-32.2) 12/04/21 16:42 Procalcitonin 2.14 ng/mL (0-0.5) H 12/04/21 16:42 TSH 1.70 uIU/mL (0.27-4.20) 12/04/21 16:42 Prolactin 6.74 ng/mL (4.0-15.2) 12/07/21 07:58 Urine Color Cancelled 12/05/21 10:18 Urine Appearance Cancelled 12/05/21 10:18 Urine pH Cancelled 12/05/21 10:18 Ur Specific [place] Cancelled 12/05/21 10:18 Urine Protein Cancelled 12/05/21 10:18 Urine Glucose (UA) Cancelled 12/05/21 10:18 Urine Ketones Cancelled 12/05/21 10:18 Urine Blood Cancelled 12/05/21 10:18 Urine Nitrate Cancelled 12/05/21 10:18 Urine Bilirubin Cancelled 12/05/21 10:18 Prot Sulfosalicylic Acd Cancelled 12/05/21 10:18 Urine Urobilinogen Cancelled 12/05/21 10:18 Ur Leukocyte Esterase Cancelled 12/05/21 10:18 Ur Microscopic Indic Cancelled 12/05/21 10:18 Urine RBC 5-10 /hpf (0-2) H 12/05/21 03:50 Urine WBC 0-4 /hpf (0-5) H 12/05/21 03:50 Ur Eosinophil Smear 0 (0-0) 12/05/21 10:18 Ur Squamous Epith Cells 0-4 /hpf (0-5) H 12/05/21 03:50 Amorphous Sediment 4+ /hpf 12/05/21 03:50 Urine Bacteria 2+ /hpf (NONE) H 12/05/21 03:50 Urine Eosinophils No eosinophils seen 12/05/21 10:18 Ur Random Sodium 12 mmol/L 12/05/21 10:18 Ur Random Potassium 62 mmol/L 12/05/21 10:18 Ur Random Chloride 11 mmol/L 12/05/21 10:18 Urine Creatinine 438 mg/dL (39-259) H 12/05/21 10:18 Vancomycin Trough 18.4 ug/mL (10-15) H 12/07/21 14:10 Urine Opiates Screen Negative ng/mL (Negative) 12/05/21 10:18 Ur Barbiturates Screen Negative ng/mL (Negative) 12/05/21 10:18 Ur Phencyclidine Scrn Negative ng/mL (Negative) 12/05/21 10:18 Ur Amphetamines Screen Negative ng/mL (Negative) 12/05/21 10:18 U Benzodiazepines Scrn Negative ng/mL (Negative) 12/05/21 10:18 Urine Cocaine Screen Negative ng/mL (Negative) 12/05/21 10:18 U Marijuana (THC) Screen Negative ng/mL (Negative) 12/05/21 10:18 Complement C3 164 mg/dL (90-180) 12/06/21 09:18 Complement C4 66 mg/dL (10-40) H 12/06/21 09:18 Coronavirus 229E (PCR) Not detected (NOT DETECT) 12/05/21 19:25 Hepatitis C Antibody Non-reactive (Nonreactive) 12/06/21 15:49 SARS-CoV-2 (PCR) Not detected (NOT DETECT) 12/05/21 19:25 SARS-CoV-2 RNA (RT-PCR) Cancelled 12/05/21 14:44 SARS-CoV-2 Ag (Rapid) Negative (Negative) 12/04/21 21:30 Vitals Last Vital Signs Temp 97.8 F 12/13/21 00:15 Pulse 80 12/13/21 09:00 Resp 20 H 12/13/21 09:00 BP 172/88 12/13/21 09:00 Pulse Ox 95 12/13/21 09:00 O2 Del Method 12/12/21 16:00 O2 Flow Rate 3 12/09/21 09:00 FiO2 30 12/13/21 04:16 Discharge Plan Discharge Patient Disposition: Home Condition: Stable Prescriptions: New nifedipine 30 mg Tablet Extended Release 24 Hr 90 mg PO DAILY 30 Days Qty: 30 3RF Continued spironolactone 50 mg tablet 50 mg PO DAILY Qty: 90 3RF hydralazine 100 mg tablet 100 mg PO TID Qty: 90 0RF rosuvastatin 10 mg tablet 10 mg PO DAILY Qty: 30 0RF Ozempic 1 mg/dose (4 mg/3 mL) pen injector See Rx Instructions .ROUTE .COMPLEX Qty: 3 0RF Dose Instruction: INJECT 1MG(0.75ML) UNDER THE SKIN ONCE EVERY WEEK Rx Instructions: INJECT 1MG(0.75ML) UNDER THE SKIN ONCE EVERY WEEK aspirin [Adult Aspirin Regimen] 81 mg tablet,delayed release (DR/EC) 81 mg PO DAILY Qty: 30 3RF clonidine HCl 0.2 mg tablet 0.2 mg PO BID Held lisinopril 40 mg tablet 40 mg PO BEDTIME Qty: 30 0RF Hold Instructions: Resume on 12/20/21. furosemide 40 mg tablet 40 mg PO BID Hold Instructions: Resume on 12/20/21. potassium chloride 20 mEq tablet,ER particles/crystals 20 meq PO DAILY Hold Instructions: Resume on 12/20/21. Discontinued nifedipine 60 mg tablet extended release See Rx Instructions .ROUTE .COMPLEX Qty: 90 0RF Dose Instruction: TAKE 1 TABLET BY MOUTH DAILY Rx Instructions: TAKE 1 TABLET BY MOUTH DAILY celecoxib 100 mg capsule 100 mg PO BID Discharge Orders: Discharge Order (Routine); Ordered 12/13/21 Ordered By: Praneeth Espinoza Referrals: Tej Burgos DPM [Physician] - 2 weeks ([facility] appointment date- 12-27-2021 appointment time at 11:30 am ) Bharti Woodruff MD [Hospitalist] - 2 weeks ([facility] [phone] [address] floor of medical office building at hospital. appointment date- January appointment time at 09:30 am ) Landy Bella FNP [Primary Care Provider] - 1 week (December 20, 2021 time of 10:30 am ) Discharge Diet: Low Salt Patient Instructions: Cellulitis, Type 2 Diabetes, Chronic Kidney Disease (DC), Osteomyelitis (DC), Sepsis (DC), Ischemic Stroke (DC), Low-Sodium Diet (DC), How to Care for Your PICC (Peripherally Inserted Central Catheter) (ED), Opioid Safety, Stroke Stoplight Discharge Attestations Time Spent in Discharge Care*: less than 30 min Quality Metrics Clinical Quality Measures [ No reported AMI, CVA or VTE this stay] Coding Level of Care Code Acute Chg FW DC note Diagnoses Cellulitis of foot, right L03.115 Chronic osteomyelitis of right foot M86.671 Diabetic peripheral neuropathy associated with type 2 diabetes mellitus E11.42
--- NOTE | 2021-12-13 12:48 | PC.NURSE ---
Patient signed D/C form, All D/C instructions educated to patient. out of facility at this time transported by family
--- NOTE | 2021-12-13 16:17 | P.PN_ITS ---
Subjective Subjective: Infectious disease progress note. Patient discharged prior to my rounds today, therefore chart is reviewed. Leukocytosis of 12. Patient afebrile since December 09. BECKA performed in December 11 was negative for any intracardiac masses thrombi or vegetations. Medications: Reviewed: Yes Medication Review Details: Generic Name Dose Route Start Last Admin Trade Name Freq PRN Reason Stop Dose Admin Acetaminophen 650 mg 12/04/21 20:03 12/09/21 00:33 Acetaminophen 32 5 Mg Tablet PO 650 mg Q6H PRN Administration Mild/Mod Pain Or Temp >/= 101 Acetaminophen/Code ine Phosphate 1 tab 12/09/21 09:59 12/09/21 10:30 Acetaminophen-Co deine 300-30mg Tab let PO 1 tab Q4H PRN Administration MODERATE PAIN Aspirin 81 mg 12/05/21 09:00 12/10/21 08:21 Aspirin 81 Mg Ec Tablet PO 81 mg DAILY SONIA Administration Atorvastatin Calci um 40 mg 12/05/21 09:00 12/10/21 08:22 Atorvastatin 40 Mg Tablet PO 40 mg DAILY SONIA Administration Clonidine HCl 1 patch 12/07/21 09:30 12/07/21 09:25 Clonidine 0.1 Mg /24 Hr Patch TRANSDERMA 1 patch Q7D SONIA Administration Clonidine HCl 1 patch 12/09/21 12:30 12/09/21 13:05 Clonidine 0.2 Mg /24 Hr Patch TRANSDERMA 1 patch Q7D SONIA Administration Docusate Sodium 100 mg 12/05/21 09:00 12/10/21 08:26 Docusate Sodium 100 Mg Capsule PO 100 mg BID SONIA Administration Ferrous Gluconate 324 mg 12/05/21 08:00 12/10/21 08:22 Ferrous Gluconat e 324 Mg Tablet PO 324 mg BIDWM SONIA Administration Heparin Sodium (Po rcine) 5,000 unit 12/04/21 21:00 12/10/21 08:26 Heparin 5,000 Un it/Ml Inj 1 Ml SUBCUT 5,000 unit Q12H SONIA Administration Cefazolin Sodium 2 ,000 mg/ 50 mls @ 100 mls/ hr 12/08/21 08:00 12/10/21 09:50 Sodium Chloride IV Infused Q8H SONIA Infusion Protocol Lactated Ringer's 1,000 mls @ 125 m ls/hr 12/08/21 08:15 12/10/21 08:42 Lactated Ringers IV 125 mls/hr .Q8H SONIA Administration Insulin Glargine 15 unit 12/08/21 18:00 12/10/21 08:27 Insulin Glargine 100 Units/1 Ml SUBCUT 15 unit BID SONIA Administration Insulin Human Lisp ro 0 unit 12/04/21 21:00 12/10/21 12:28 Insulin Lispro 1 00 Unit/1 Ml SUBCUT 8 unit WM&BEDTIME SONIA Administration Protocol Nifedipine 60 mg 12/09/21 14:15 12/10/21 08:22 Nifedipine Er (2 4 Hr) 30 Mg Tablet PO 60 mg DAILY SONIA Administration Pantoprazole Sodiu m 40 mg 12/04/21 18:31 12/09/21 17:33 Pantoprazole 40 Mg Sdv IVP 40 mg Q24H SONIA Administration Vitals/I&O/Wt Last Vital Signs Temp 97.8 F 12/13/21 00:15 Pulse 80 12/13/21 09:00 Resp 20 H 12/13/21 09:00 BP 172/88 12/13/21 09:00 Pulse Ox 95 12/13/21 09:00 O2 Del Method 12/12/21 16:00 O2 Flow Rate 3 12/09/21 09:00 FiO2 30 12/13/21 04:16 12/13/21 12/13/21 12/13/21 06:59 14:59 22:59 Intake Total 50 / 2250 300 / 300 Output Total 800 / 3000 Balance -750 / -750 300 / 300 Physical Exam Narrative: Discharge prior to rounds today. Not seen Urinary Catheter Management: Díaz: Cath Placed During This Visit: yes, but has since been removed by the nurse Reason for Continuing Indwelling Catheter: Decision to DC Catheter Urinary Catheter Date of Insertion: 12/05/21 Urinary Catheter Time of Insertion: 01:38 Date Urinary Catheter Removed: 12/11/21 Time Urinary Catheter Discontinued: 07:20 Data : 12/12/21 04:40 12/12/21 04:40 Micro: Microbiology 12/09/21 08:33 Anaerobic Culture - Preliminary Foot - Right 12/07/21 19:25 Blood Culture - Final Blood NO GROWTH AFTER 5 DAYS 12/07/21 19:20 Blood Culture - Final Blood NO GROWTH AFTER 5 DAYS A&P Assessment and plan (1) Septicemia: Status: Acute (2) Embolic stroke: Status: Acute (3) Cellulitis of foot, right: Status: Acute (4) Sepsis: Status: Acute (5) Acute kidney injury: Status: Acute Plan 51-year-old male admitted with MSSA septicemia complicated by septic embolization to the BROILER CHEF OR COOK and acute kidney injury. # MSSA septicemia complicated by septic embolization to BROILER CHEF OR COOK and KARI as a result of sepsis vs possible embolization -Last positive blood cx 12/04 -Blood cx from 12/06 remains negative. -Source of infection appears to be foot abscess and cellulitis. -S/p I&D of right foot 12/09 Abscess cx also with MSSA -BECKA negative for any vegetations -At a minimum recommend 6 weeks of iv abx for complicated MSSA septicemia (12/09- 01/20) -Cefazolin 2g iv q8h to continue at discharge. -Recommend obtaining weekly CBC, creatinine and LFT while on the above regimen - Picc line placed 12/11/21 Follow-up in infectious disease clinic when nearing end of antibiotic treatment. Attestations Medical Necessity Statement*: per admitting Coding Level of Care Code Acute Cutter Grinder for Priscilla Jones Diagnoses Septicemia A41.9 Embolic stroke I63.9 Cellulitis of foot, right L03.115 Sepsis A41.9 Acute kidney injury N17.9
== END 2021-12-13 12:49 | disposition home health service (06) | DRG 853 ==
LOC: ER 20:49 → ICU 12-05 06:21
PROVIDERS: Internal Medicine Nephrology; Podiatrist Foot & Ankle Surgery; Student in an Organized Health Care Education/Training Program; Admitting Provider Student in an Organized Health Care Education/Training Program; Emergency Provider Family Medicine; PCP Registered Nurse; Visit Provider Internal Medicine
PROC: 0LBV0ZZ Excision of Right Foot Tendon, Open Approach (ICD-10-PCS; principal; 2021-12-09 08:00)
DX: A41.01 Sepsis due to Methicillin susceptible Staphylococcus aureus (principal); G93.41 Metabolic encephalopathy; I76 Septic arterial embolism; I74.9 Embolism and thrombosis of unspecified artery; L03.115 Cellulitis of right lower limb; L02.611 Cutaneous abscess of right foot; L97.518 Non-pressure chronic ulcer of other part of right foot with other specified severity; M86.671 Other chronic osteomyelitis, right ankle and foot; Z68.41 Body mass index [BMI] 40.0-44.9, adult; N17.9 Acute kidney failure, unspecified; I67.82 Cerebral ischemia; G81.94 Hemiplegia, unspecified affecting left nondominant side; E87.1 Hypo-osmolality and hyponatremia; E87.2 Acidosis; E11.621 Type 2 diabetes mellitus with foot ulcer; E11.69 Type 2 diabetes mellitus with other specified complication; E11.42 Type 2 diabetes mellitus with diabetic polyneuropathy; I10 Essential (primary) hypertension; Z86.16 Personal history of COVID-19; G47.33 Obstructive sleep apnea (adult) (pediatric); Z91.19 Patient's noncompliance with other medical treatment and regimen; N40.0 Benign prostatic hyperplasia without lower urinary tract symptoms; E78.5 Hyperlipidemia, unspecified; Z87.01 Personal history of pneumonia (recurrent); Z86.718 Personal history of other venous thrombosis and embolism; Z99.89 Dependence on other enabling machines and devices; E66.9 Obesity, unspecified; I95.9 Hypotension, unspecified; R29.810 Facial weakness; R29.701 NIHSS score 1; Z79.82 Long term (current) use of aspirin
CPT/HCPCS: 29581; 36415; 36416; 36569; 36600; 51702; 70450; 70551; 71045; 73630; 73700; 73718; 74176; 80048; 80051; 80053; 80061; 80202; 80306; 81001; 81003; 82150; 82306; 82330; 82436; 82550; 82570; 82607; 82746; 82805; 82962; 83036; 83540; 83550; 83605; 83690; 83735; 83880; 84100; 84133; 84145; 84146; 84300; 84443; 84484; 84550; 85025; 85651; 85999; 86140; 86160; 86403; 86803; 87040; 87070; 87075; 87077; 87086; 87176; 87186; 87205; 87426; 87449; 87635; 87641; 93005; 93312; 93320; 93325; 93880; 94660; 94664; 96365; 96372; 96375; 97110; 97116; 97161; 97165; 97530; 99285; C1751; C8929; C9113; J0360; J0692; J1644; J1815; J1940; J2405; J2704; J3010; J3370; J3490; J7030; J7050; Q3014; Q9956

== ENCOUNTER 2021-12-18 12:32 | Outpatient (CLI) | payer OTHER, SELFPAY ==
[2021-12-18 13:49] LABS: Basophils # 0.1 10^3/uL (0.0-0.1); Basophils % 0.7 %; Eosinophils # 0.3 10^3/uL (0.0-0.8); Eosinophils % 3.5 %; Hematocrit 34.5 % (42.0-52.0); Lymphocytes % 20.8 %; Mean Corpuscular HGB Conc 31.9 g/dL (30.0-36.0); Mean Corpuscular Hemoglobin 29.2 pg (28.0-34.0); Mean Corpuscular Volume 91.5 fl (80-94); Mean Platelet Volume 10.2 fL (7.4-10.4); Monocytes # 0.5 10^3/uL (0.2-0.9); Monocytes % 4.9 %; Neutrophils # 6.49 10^3/uL (1.8-7.7); Neutrophils % 69.5 %; Nucleated Red Blood Cells % 0 %; Platelet Count 376 10^3/cmm (130-400); Red Blood Count 3.77 10^6/uL (4.1-5.3); Red Cell Distribution Width 13.3 % (12.1-15.1); White Blood Count 9.4 10^3/uL (4.0-10.0)
[2021-12-18 14:08] LABS: Alanine Aminotransferase 6 U/L (0-41); Albumin Level 3.4 g/dL (3.5-5.2); Alkaline Phosphatase 114 IU/L (40-130); Aspartate Amino Transferase 17 U/L (0-40); Globulin 4.1 g/dL (1.3-4.6); Glomerular Filtration Rate 70.3 mL/min (90-130); Total Bilirubin 0.2 mg/dL (0.15-1.2); Total Protein 7.5 g/dL (6.6-8.7)
== END 2021-12-18 12:33 | disposition home or self-care (01) ==
PROVIDERS: PCP Registered Nurse; Visit Provider Student in an Organized Health Care Education/Training Program
DX: A41.9 Sepsis, unspecified organism (principal)
CPT/HCPCS: 80076; 82565; 85025

== ENCOUNTER 2021-12-25 17:51 | Outpatient (CLI) | payer OTHER, SELFPAY ==
[2021-12-25 18:10] LABS: Basophils # 0.1 10^3/uL (0.0-0.1); Eosinophils # 1.4 10^3/uL (0.0-0.8); Eosinophils % 12.7 %; Hematocrit 35.1 % (42.0-52.0); Hemoglobin 11.2 g/dL (11.7-16.6); Lymphocytes # 2.4 10^3/uL (0.8-4.8); Lymphocytes % 22.8 %; Mean Corpuscular HGB Conc 31.9 g/dL (30.0-36.0); Mean Corpuscular Hemoglobin 28.9 pg (28.0-34.0); Mean Corpuscular Volume 90.5 fl (80-94); Mean Platelet Volume 10.3 fL (7.4-10.4); Monocytes # 0.6 10^3/uL (0.2-0.9); Monocytes % 5.9 %; Neutrophils # 6.05 10^3/uL (1.8-7.7); Neutrophils % 57.2 %; Nucleated Red Blood Cells % 0 %; Platelet Count 324 10^3/cmm (130-400); Red Blood Count 3.88 10^6/uL (4.1-5.3); Red Cell Distribution Width 13.8 % (12.1-15.1); White Blood Count 10.6 10^3/uL (4.0-10.0)
[2021-12-25 18:44] LABS: Alanine Aminotransferase < 5 U/L (0-41); Albumin Level 3.7 g/dL (3.5-5.2); Alkaline Phosphatase 142 U/L (40-130); Aspartate Amino Transferase 14 U/L (0-40); Total Bilirubin 0.3 mg/dL (0.15-1.2); Total Protein 7.7 g/dL (6.6-8.7)
== END 2021-12-25 17:52 | disposition home or self-care (01) ==
PROVIDERS: PCP Registered Nurse; Visit Provider Student in an Organized Health Care Education/Training Program
DX: A41.9 Sepsis, unspecified organism (principal)
CPT/HCPCS: 80076; 85025

== ENCOUNTER 2022-01-01 13:40 | Outpatient (CLI) | payer OTHER, SELFPAY ==
[2022-01-01 13:52] LABS: Basophils # 0.1 10^3/uL (0.0-0.1); Basophils % 0.8 %; Eosinophils # 0.6 10^3/uL (0.0-0.8); Eosinophils % 5.8 %; Hematocrit 35.4 % (42.0-52.0); Hemoglobin 11.5 g/dL (11.7-16.6); Lymphocytes # 2.7 10^3/uL (0.8-4.8); Mean Corpuscular HGB Conc 32.5 g/dL (30.0-36.0); Mean Corpuscular Hemoglobin 28.6 pg (28.0-34.0); Mean Corpuscular Volume 88.1 fl (80-94); Mean Platelet Volume 10.1 fL (7.4-10.4); Monocytes # 0.7 10^3/uL (0.2-0.9); Monocytes % 6.2 %; Neutrophils # 6.57 10^3/uL (1.8-7.7); Neutrophils % 61.9 %; Nucleated Red Blood Cells % 0 %; Platelet Count 263 10^3/cmm (130-400); Red Blood Count 4.02 10^6/uL (4.1-5.3); Red Cell Distribution Width 13.7 % (12.1-15.1); White Blood Count 10.6 10^3/uL (4.0-10.0)
[2022-01-01 14:15] LABS: Alanine Aminotransferase < 5 U/L (0-41); Alkaline Phosphatase 163 U/L (40-130); Globulin 4.1 g/dL (1.3-4.6); Glomerular Filtration Rate 78.5 mL/min (90-130); Total Bilirubin 0.2 mg/dL (0.15-1.2); Total Protein 8.1 g/dL (6.6-8.7)
[2022-01-01 14:23] LABS: Aspartate Amino Transferase 19 U/L (0-40)
== END 2022-01-01 13:41 | disposition home or self-care (01) ==
LOC: LAB 13:41
PROVIDERS: PCP Registered Nurse; Visit Provider Student in an Organized Health Care Education/Training Program
DX: A41.9 Sepsis, unspecified organism (principal)
CPT/HCPCS: 80076; 82565; 85025

== ENCOUNTER 2022-01-08 11:36 | Outpatient (CLI) | payer OTHER, SELFPAY ==
[2022-01-08 12:11] LABS: Basophils # 0.1 10^3/uL (0.0-0.1); Basophils % 0.6 %; Eosinophils # 0.7 10^3/uL (0.0-0.8); Eosinophils % 6.4 %; Hematocrit 34.1 % (42.0-52.0); Hemoglobin 11.1 g/dL (11.7-16.6); Lymphocytes # 2.5 10^3/uL (0.8-4.8); Lymphocytes % 23.3 %; Mean Corpuscular HGB Conc 32.6 g/dL (30.0-36.0); Mean Corpuscular Hemoglobin 28.7 pg (28.0-34.0); Mean Corpuscular Volume 88.1 fl (80-94); Mean Platelet Volume 10.2 fL (7.4-10.4); Monocytes # 0.6 10^3/uL (0.2-0.9); Neutrophils # 6.71 10^3/uL (1.8-7.7); Neutrophils % 63.3 %; Nucleated Red Blood Cells % 0 %; Platelet Count 292 10^3/cmm (130-400); Red Blood Count 3.87 10^6/uL (4.1-5.3); White Blood Count 10.6 10^3/uL (4.0-10.0)
[2022-01-08 12:27] LABS: Alanine Aminotransferase < 5 U/L (0-41); Albumin Level 3.9 g/dL (3.5-5.2); Alkaline Phosphatase 166 U/L (40-130); Aspartate Amino Transferase 13 U/L (0-40); Globulin 3.9 g/dL (1.3-4.6); Glomerular Filtration Rate 78.5 mL/min (90-130); Total Bilirubin 0.3 mg/dL (0.15-1.2); Total Protein 7.8 g/dL (6.6-8.7)
== END 2022-01-08 11:37 | disposition home or self-care (01) ==
LOC: LAB 11:37
PROVIDERS: PCP Registered Nurse; Visit Provider Student in an Organized Health Care Education/Training Program
DX: A41.9 Sepsis, unspecified organism (principal)
CPT/HCPCS: 80076; 82565; 85025

== ENCOUNTER 2022-01-15 15:55 | Outpatient (CLI) | payer OTHER, SELFPAY ==
[2022-01-15 17:02] LABS: Basophils # 0.1 10^3/uL (0.0-0.1); Basophils % 0.7 %; Eosinophils # 0.4 10^3/uL (0.0-0.8); Eosinophils % 5.1 %; Hematocrit 35.7 % (42.0-52.0); Hemoglobin 11.7 g/dL (11.7-16.6); Lymphocytes # 1.9 10^3/uL (0.8-4.8); Lymphocytes % 23.3 %; Mean Corpuscular HGB Conc 32.8 g/dL (30.0-36.0); Mean Corpuscular Hemoglobin 28.9 pg (28.0-34.0); Mean Corpuscular Volume 88.1 fl (80-94); Mean Platelet Volume 10.2 fL (7.4-10.4); Monocytes # 0.5 10^3/uL (0.2-0.9); Neutrophils # 5.22 10^3/uL (1.8-7.7); Neutrophils % 64.4 %; Nucleated Red Blood Cells % 0 %; Platelet Count 283 10^3/cmm (130-400); Red Blood Count 4.05 10^6/uL (4.1-5.3); Red Cell Distribution Width 14.1 % (12.1-15.1); White Blood Count 8.1 10^3/uL (4.0-10.0)
[2022-01-15 17:27] LABS: Glomerular Filtration Rate 78.5 mL/min (90-130)
== END 2022-01-15 15:56 | disposition home or self-care (01) ==
LOC: LAB 15:55
PROVIDERS: PCP Registered Nurse; Visit Provider Student in an Organized Health Care Education/Training Program
DX: A41.9 Sepsis, unspecified organism (principal)
CPT/HCPCS: 82565; 85025

== ENCOUNTER 2022-01-22 14:04 | Outpatient (CLI) | payer OTHER, SELFPAY ==
[2022-01-22 14:38] LABS: Basophils # 0.1 10^3/uL (0.0-0.1); Basophils % 0.5 %; Eosinophils # 0.4 10^3/uL (0.0-0.8); Eosinophils % 4.2 %; Hematocrit 35.7 % (42.0-52.0); Hemoglobin 11.5 g/dL (11.7-16.6); Lymphocytes # 1.9 10^3/uL (0.8-4.8); Lymphocytes % 20.4 %; Mean Corpuscular HGB Conc 32.2 g/dL (30.0-36.0); Mean Corpuscular Hemoglobin 28.7 pg (28.0-34.0); Mean Platelet Volume 10.2 fL (7.4-10.4); Monocytes # 0.5 10^3/uL (0.2-0.9); Neutrophils # 6.51 10^3/uL (1.8-7.7); Neutrophils % 69.6 %; Nucleated Red Blood Cells % 0 %; Platelet Count 299 10^3/cmm (130-400); Red Blood Count 4.01 10^6/uL (4.1-5.3); Red Cell Distribution Width 14.4 % (12.1-15.1); White Blood Count 9.4 10^3/uL (4.0-10.0)
[2022-01-22 14:58] LABS: Alanine Aminotransferase < 5 U/L (0-41); Alkaline Phosphatase 167 U/L (40-130); Aspartate Amino Transferase 18 U/L (0-40); Globulin 3.7 g/dL (1.3-4.6); Glomerular Filtration Rate 78.5 mL/min (90-130); Total Bilirubin 0.3 mg/dL (0.15-1.2); Total Protein 7.7 g/dL (6.6-8.7)
== END 2022-01-22 14:05 | disposition home or self-care (01) ==
LOC: LAB 14:05
PROVIDERS: PCP Registered Nurse; Visit Provider Student in an Organized Health Care Education/Training Program
DX: A41.9 Sepsis, unspecified organism (principal)
CPT/HCPCS: 80076; 82565; 85025

== ENCOUNTER → 2022-02-06 11:15 | Outpatient (BNVA) | payer OTHER, SELFPAY | PROVIDERS: PCP Registered Nurse; Visit Provider Podiatrist Foot & Ankle Surgery | DX: E11.621 Type 2 diabetes mellitus with foot ulcer (principal); M86.671 Other chronic osteomyelitis, right ankle and foot; L97.529 Non-pressure chronic ulcer of other part of left foot with unspecified severity; L97.519 Non-pressure chronic ulcer of other part of right foot with unspecified severity; I87.2 Venous insufficiency (chronic) (peripheral); G62.9 Polyneuropathy, unspecified; R60.9 Edema, unspecified; E11.21 Type 2 diabetes mellitus with diabetic nephropathy; M14.671 Charcot's joint, right ankle and foot | CPT/HCPCS: 73630 ==

== ENCOUNTER → 2022-02-27 11:22 | Outpatient (BNVA) | payer OTHER, SELFPAY | PROVIDERS: PCP Registered Nurse; Visit Provider Podiatrist Foot & Ankle Surgery | DX: E11.621 Type 2 diabetes mellitus with foot ulcer (principal); L97.412 Non-pressure chronic ulcer of right heel and midfoot with fat layer exposed; I87.2 Venous insufficiency (chronic) (peripheral); G62.9 Polyneuropathy, unspecified; R60.9 Edema, unspecified; L97.529 Non-pressure chronic ulcer of other part of left foot with unspecified severity; E11.21 Type 2 diabetes mellitus with diabetic nephropathy; M14.671 Charcot's joint, right ankle and foot; M86.671 Other chronic osteomyelitis, right ankle and foot | CPT/HCPCS: 73630 ==

== ENCOUNTER → 2022-03-06 11:12 | Outpatient (BNVA) | payer OTHER, SELFPAY | PROVIDERS: PCP Registered Nurse; Visit Provider Registered Nurse | DX: E11.9 Type 2 diabetes mellitus without complications (principal) | CPT/HCPCS: 80053; 83036; 85025 ==

== ENCOUNTER → 2022-03-20 11:32 | Outpatient (BNVA) | payer OTHER, SELFPAY | PROVIDERS: PCP Registered Nurse; Visit Provider Podiatrist Foot & Ankle Surgery | DX: E11.621 Type 2 diabetes mellitus with foot ulcer (principal); L97.512 Non-pressure chronic ulcer of other part of right foot with fat layer exposed; E11.8 Type 2 diabetes mellitus with unspecified complications; I87.2 Venous insufficiency (chronic) (peripheral); G62.9 Polyneuropathy, unspecified; R60.9 Edema, unspecified; M86.671 Other chronic osteomyelitis, right ankle and foot; E11.21 Type 2 diabetes mellitus with diabetic nephropathy; M14.671 Charcot's joint, right ankle and foot | CPT/HCPCS: 73630 ==

== ENCOUNTER → 2022-04-01 11:16 | Outpatient (BNVA) | payer OTHER, SELFPAY | PROVIDERS: PCP Registered Nurse; Visit Provider Podiatrist Foot & Ankle Surgery | DX: E11.621 Type 2 diabetes mellitus with foot ulcer (principal); L97.522 Non-pressure chronic ulcer of other part of left foot with fat layer exposed; E11.8 Type 2 diabetes mellitus with unspecified complications; M86.671 Other chronic osteomyelitis, right ankle and foot; I87.2 Venous insufficiency (chronic) (peripheral); G62.9 Polyneuropathy, unspecified; R60.9 Edema, unspecified; E11.21 Type 2 diabetes mellitus with diabetic nephropathy; E11.610 Type 2 diabetes mellitus with diabetic neuropathic arthropathy | CPT/HCPCS: 73630 ==

== ENCOUNTER → 2022-05-08 10:17 | Outpatient (BNVA) | payer OTHER, SELFPAY | PROVIDERS: PCP Registered Nurse; Visit Provider Podiatrist Foot & Ankle Surgery | DX: I87.2 Venous insufficiency (chronic) (peripheral) (principal); G62.9 Polyneuropathy, unspecified; M14.671 Charcot's joint, right ankle and foot; E11.21 Type 2 diabetes mellitus with diabetic nephropathy; M86.671 Other chronic osteomyelitis, right ankle and foot | CPT/HCPCS: 73630 ==

== ENCOUNTER 2022-05-23 05:36 | Day surgery (SDC) | payer OTHER, SELFPAY ==
[2022-04-01 08:58] VITALS: BMI 39.9
[2022-05-21 08:17] VITALS: BMI 40.3
[2022-05-23 06:12] VITALS: BP 135/82; PULSE 77; RESP 18; TEMP 36.3; O2SAT 97
[2022-05-23] MEDS: sodium chloride 0.9% 1,000 ML 30 ML IV (06:21)
[2022-05-23 06:26] LABS: Glucose Point of Care 144 mg/dL (70-110)
--- NOTE | 2022-05-23 06:40 | PM.HP ---
Providers/Chief Complaint Primary Care Provider: DAVID Pack Chief Complaint: Z12.11 History of Present Illness Roney Anthony is a 51 year old male here for his first screening colonoscopy Medications/Allergies Home Medications Medication Instructions Recorded Confirmed Last Taken Type aspirin 81 mg tablet,delayed 81 mg PO DAILY #30 tabs 02/10/21 05/23/22 05/20/22 Rx release (Adult Aspirin Regimen) lisinopril 40 mg tablet 40 mg PO BEDTIME #30 tabs 07/31/21 05/23/22 05/22/22 Rx furosemide 40 mg tablet 40 mg PO BID 12/04/21 05/23/22 Unknown History potassium chloride 20 mEq 20 meq PO DAILY 12/04/21 05/23/22 Unknown History tablet,extended release(part/cryst) spironolactone 50 mg tablet 50 mg PO DAILY #90 tabs 12/24/21 05/23/22 05/22/22 Rx nifedipine 30 mg tablet,extended 30 mg PO TID 90 days #270 tabs 12/31/21 05/23/22 05/23/22 Rx release 24 hr flash glucose scanning reader #1 ea 01/01/22 05/08/22 Unknown Rx (FreeStyle Katherine 14 Day [place]) flash glucose sensor (FreeStyle #1 ea 01/01/22 05/08/22 Unknown Rx [place] 14 Day Sensor kit) CPAP and supplies #1 ea 01/15/22 05/08/22 Unknown Rx [place] Boot to the Right #1 ea 02/27/22 05/08/22 Unknown Rx semaglutide 1 mg/dose (4 mg/3 mL) See Rx Instructions .Route 04/01/22 05/23/22 05/15/22 Rx subcutaneous pen injector (Ozempic) .COMPLEX #3 mL clonidine HCl 0.2 mg tablet 0.2 mg PO BID 90 days #180 tabs 04/22/22 05/23/22 05/23/22 Rx rosuvastatin 10 mg tablet 10 mg PO DAILY 05/22/22 05/23/22 05/23/22 History hydralazine 100 mg tablet 100 mg PO TID 05/23/22 05/23/22 05/23/22 History Allergies Allergy/AdvReac Type Severity Reaction Status Date / Time Penicillins Allergy Unknown Verified 05/08/22 10:22 PFSH Acute PFSH: Medical History Accelerated hypertension Acute conjunctivitis, right eye Acute ischemic multifocal multiple vascular territories stroke Acute kidney injury Anemia BPH (benign prostatic hyperplasia) Cellulitis Cellulitis Cellulitis of foot, right Chronic kidney disease Chronic osteomyelitis of right foot CPAP (continuous positive airway pressure) dependence Diabetes Diabetes mellitus with polyneuropathy Diabetic peripheral neuropathy associated with type 2 diabetes mellitus Dyslipidemia Edema Embolic stroke Essential hypertension Gram-positive bacteremia Neuropathy Obesity (BMI 30-39.9) Oliguria Osteomyelitis of toe of right foot Post-acute COVID-19 syndrome Resistant hypertension Respiratory failure with hypoxia S/P angiogram of extremity Saphenous vein clot Sepsis Septicemia Sleep apnea Staphylococcal sepsis T2DM (type 2 diabetes mellitus) Tachycardia with hypertension Family History Other CAD (coronary artery disease) Hypertension Social History Smoking and tobacco status: never smoked Vitals/I&O/Wt Last Vital Signs Temp 97.3 F L 05/23/22 06:12 Pulse 77 05/23/22 06:12 Resp 18 05/23/22 06:12 BP 135/82 05/23/22 06:12 Pulse Ox 97 05/23/22 06:12 O2 Del Method 05/23/22 06:12 Weight last 48 hrs Weight 273 lb A&P Assessment and plan (1) Encounter for screening for malignant neoplasm of colon: Plan Colonoscopy Attestations Medical Necessity Statement*: Home Coding Level of Care Code 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
--- NOTE | 2022-05-23 06:48 | ANES.PREANE2 ---
Pre-Anesthetic Assessment Height/Weight: Height 1.75 m Weight 123.831 kg Temp Pulse Resp BP Pulse Ox O2 Del Method 97.3 F L 77 18 135/82 97 05/23/22 06:12 05/23/22 06:12 05/23/22 06:12 05/23/22 06:12 05/23/22 06:12 05/23/22 06:12 Preop Diagnosis: Screening Operation Date: 05/23/22 07:00 Proposed Procedures p Colonoscopy 93529,Z12.11(Not Applicable) - Mukesh Kinsey DO Familial anesthetic complications: None Was Beta Fito taken within 24 hours: N/A Was Clonidine taken within 24 hours: Yes Last intake: Intake Last Liquid Date 05/22/22 Last Liquid Time 22:30 Last Solid Date 05/21/22 Last Solid Time 21:00 Social Tobacco and No alcohol Exam alert, oriented x 3, clear to auscultation bilaterally and regular rate & rhythm Airway Submandibular: within normal limits Cervical ROM: within normal limits Mallampati: Class III Dentition: full History/ROS No significant history except as noted Pulmonary None reported CV/HEM Hypertension Chronic Renal Insufficiency Hepatic None reported GI None reported Metabolic Diabetes Mellitus and Morbid Obesity [facility] None reported Neuropsych Cerebrovascular Accident (pt states this was 7-8 months ago, no residual SE) Anesthetic Plan ASA status: 3 Anesthesia: Anesthesia Evaluation and MAC Risk of > 500 ml blood loss (7ml/kg in children): No Medications/Allergies Home Medications Medication Instructions Recorded Confirmed Last Taken Type aspirin 81 mg tablet,delayed 81 mg PO DAILY #30 tabs 02/10/21 05/23/22 05/20/22 Rx release (Adult Aspirin Regimen) lisinopril 40 mg tablet 40 mg PO BEDTIME #30 tabs 07/31/21 05/23/22 05/22/22 Rx furosemide 40 mg tablet 40 mg PO BID 12/04/21 05/23/22 Unknown History potassium chloride 20 mEq 20 meq PO DAILY 12/04/21 05/23/22 Unknown History tablet,extended release(part/cryst) spironolactone 50 mg tablet 50 mg PO DAILY #90 tabs 12/24/21 05/23/22 05/22/22 Rx nifedipine 30 mg tablet,extended 30 mg PO TID 90 days #270 tabs 12/31/21 05/23/22 05/23/22 Rx release 24 hr flash glucose scanning reader #1 ea 01/01/22 05/08/22 Unknown Rx (FreeStyle Katherine 14 Day [place]) flash glucose sensor (FreeStyle #1 ea 01/01/22 05/08/22 Unknown Rx [place] 14 Day Sensor kit) CPAP and supplies #1 ea 01/15/22 05/08/22 Unknown Rx [place] Boot to the Right #1 ea 02/27/22 05/08/22 Unknown Rx semaglutide 1 mg/dose (4 mg/3 mL) See Rx Instructions .Route 04/01/22 05/23/22 05/15/22 Rx subcutaneous pen injector (Ozempic) .COMPLEX #3 mL clonidine HCl 0.2 mg tablet 0.2 mg PO BID 90 days #180 tabs 04/22/22 05/23/22 05/23/22 Rx rosuvastatin 10 mg tablet 10 mg PO DAILY 05/22/22 05/23/22 05/23/22 History hydralazine 100 mg tablet 100 mg PO TID 05/23/22 05/23/22 05/23/22 History Allergies Allergy/AdvReac Type Severity Reaction Status Date / Time Penicillins Allergy Unknown Verified 05/08/22 10:22 Current Medications Generic Name Dose Route Start Last Admin Trade Name Freq PRN Reason Stop Dose Admin Sodium Chloride 1,000 mls @ 30 mls/hr 05/23/22 06:15 05/23/22 06:21 Sodium Chloride 0.9% IV 05/24/22 06:14 30 mls/hr .Q24H SONIA Administration PFSH Anesthesia Medical History Accelerated hypertension Acute conjunctivitis, right eye Acute ischemic multifocal multiple vascular territories stroke Acute kidney injury Anemia BPH (benign prostatic hyperplasia) Cellulitis Cellulitis Cellulitis of foot, right Chronic kidney disease Chronic osteomyelitis of right foot CPAP (continuous positive airway pressure) dependence Diabetes Diabetes mellitus with polyneuropathy Diabetic peripheral neuropathy associated with type 2 diabetes mellitus Dyslipidemia Edema Embolic stroke Essential hypertension Gram-positive bacteremia Neuropathy Obesity (BMI 30-39.9) Oliguria Osteomyelitis of toe of right foot Post-acute COVID-19 syndrome Resistant hypertension Respiratory failure with hypoxia S/P angiogram of extremity Saphenous vein clot Sepsis Septicemia Sleep apnea Staphylococcal sepsis T2DM (type 2 diabetes mellitus) Tachycardia with hypertension Family History Other CAD (coronary artery disease) Hypertension Social History Smoking and tobacco status: never smoked Data Anesthesia Cardiac Studies: Echocardiogram 12/05/21 Echocardiogram Ultrasound 12/31/19 Transesophageal Echocardiogram 12/11/21 Sestamibi Stress Test (Cardiology) 04/10/20
[2022-05-23 07:22] VITALS: BP 114/75; PULSE 65; RESP 16; TEMP 36.1; O2SAT 93
--- NOTE | 2022-05-23 07:25 | ANE.PACU2 ---
Inpatient post-anesthesia follow up: Airway intact: Yes Vital signs: Temperature 97.0 F Pulse Rate 65 Respiratory Rate 16 Blood Pressure 114/75 Pulse Oximetry 93 Oxygen Delivery Me thod Room Air Oxygen Flow Rate Fraction of Inspir ed Oxygen Hydration adequate: Yes Nausea and vomiting: No Pain level: 1 Mental status: Baseline
[2022-05-23 07:43] VITALS: BP 154/97; PULSE 61; RESP 18; O2SAT 96
== END 2022-05-23 08:07 | disposition home or self-care (01) ==
PROVIDERS: PCP Registered Nurse; Visit Provider Surgery
PROC: 0DJD8ZZ Inspection of Lower Intestinal Tract, Via Natural or Artificial Opening Endoscopic (ICD-10-PCS; CPT 45378; principal; 2022-05-23 07:00)
DX: Z12.11 Encounter for screening for malignant neoplasm of colon (principal); K57.30 Diverticulosis of large intestine without perforation or abscess without bleeding; K51.40 Inflammatory polyps of colon without complications; Z79.82 Long term (current) use of aspirin; N40.0 Benign prostatic hyperplasia without lower urinary tract symptoms; E11.42 Type 2 diabetes mellitus with diabetic polyneuropathy; E78.5 Hyperlipidemia, unspecified; I10 Essential (primary) hypertension; E66.01 Morbid (severe) obesity due to excess calories; Z68.41 Body mass index [BMI] 40.0-44.9, adult; Z86.16 Personal history of COVID-19; G47.30 Sleep apnea, unspecified
CPT/HCPCS: 36416; 45385; 82962; 88305; J2704; J7030

== ENCOUNTER 2022-06-01 17:48 | Inpatient (IN) | payer OTHER, SELFPAY ==
[2022-06-01 17:57] VITALS: BP 132/80; PULSE 100; RESP 18; TEMP 36.7; O2SAT 95
--- NOTE | 2022-06-01 20:17 | USR_ITS ---
PROCEDURE INFORMATION: Exam: US Duplex Left Lower Extremity Veins, Limited Exam date and time: 06/01/2022 8:31 PM Age: 51 years old Clinical indication: Swelling (edema) of limb; Lower extremity, left; Additional info: Pain/swelling/redness TECHNIQUE: Imaging protocol: Real-time duplex ultrasound of the Left extremity with 2-D bear scale, color Doppler flow and spectral waveform analysis including responses to compression and other maneuvers (when performed) with image documentation. Limited exam focused on the left lower extremity veins. COMPARISON: CT abdomen pelvis wo con [id number] 12/05/2021 3:09 PM FINDINGS: Left deep veins: Unremarkable. The common femoral, femoral, proximal profunda femoral and popliteal veins are patent without thrombus. Normal Doppler waveforms. Normal compressibility and/or augmentation response. Left superficial veins: Unremarkable. Saphenofemoral junction is patent without thrombus. Soft tissues: Unremarkable. US/CV venous duplex [facility] [id number] IMPRESSION: No evidence of deep vein thrombosis.
--- NOTE | 2022-06-01 20:18 | W.ED.EXTPRO ---
Documented by User: NAOMI Aguilar 06/01/22 21:40 HPI - Extremity Problem General: Chief complaint: Extremity Problem,Nontraumatic Stated complaint: Pain in the left, starting to turn red. Time Seen by Provider: 06/01/22 19:57 Source: patient Mode of arrival: ambulatory Limitations: no limitations History of Present Illness: Patient is a 51-year-old male who presents to ED today with complaint of redness, swelling, and pain to his left lower extremity. Patient states approximately 2 to 3 days ago he began having pain to the left upper thigh and states since then he began noticing redness and swelling to his lower leg. No injury or trauma. He reports fevers of 100.0 at home. States he doesn't feel well and has had some nausea/vomiting. No abdominal pain. Patient is an uncontrolled diabetic. MD Complaint: extremity pain and extremity swelling Onset (ago): day(s) Pain Consistency: constant Location: left and lower extremity Radiation: none Relieving factors: nothing Exacerbating factors: nothing Associated symptoms: Reports no associated symptoms and fever(s) (subjective); Deny chest pain Review of Systems Const: Reports: fever(s) (subjective); Denies: chills or body aches Card: Denies: chest pain Resp: Denies: dyspnea GI: Denies: abdominal pain : Denies: flank pain, dysuria or hematuria Musc: Reports: extremity pain and extremity swelling; Denies: neck pain, back pain, joint pain or joint swelling Skin/Breast: Reports: erythema Neuro: Denies: headache(s), numbness in extremities, weakness in extremities or sensory changes [facility] ED PFSH: Medical History Accelerated hypertension Acute conjunctivitis, right eye Acute ischemic multifocal multiple vascular territories stroke Acute kidney injury Anemia BPH (benign prostatic hyperplasia) Cellulitis Cellulitis Cellulitis of foot, right Chronic kidney disease Chronic osteomyelitis of right foot CPAP (continuous positive airway pressure) dependence Diabetes Diabetes mellitus with polyneuropathy Diabetic peripheral neuropathy associated with type 2 diabetes mellitus Dyslipidemia Edema Embolic stroke Essential hypertension Gram-positive bacteremia Neuropathy Obesity (BMI 30-39.9) Oliguria Osteomyelitis of toe of right foot Post-acute COVID-19 syndrome Resistant hypertension Respiratory failure with hypoxia S/P angiogram of extremity Saphenous vein clot Sepsis Septicemia Sleep apnea Staphylococcal sepsis T2DM (type 2 diabetes mellitus) Tachycardia with hypertension Family History Other CAD (coronary artery disease) Hypertension Social History Smoking and tobacco status: never smoked Physical Exam Const: COMMON NORMALS: no acute distress, patient oriented x3, no limitations and alert GENERAL APPEARANCE: cooperative NUTRITIONAL APPEARANCE: obese ORIENTATION/CONSCIOUSNESS: Yes awake, Yes oriented to person, Yes oriented to place and Yes oriented to time HENMT: COMMON NORMALS: normocephalic and atraumatic HEAD & SCALP: normal to inspection, normocephalic and atraumatic Resp: COMMON NORMALS: normal respiratory effort and clear to auscultation bilaterally AUSCULTATION: clear to auscultation bilaterally Cardio: COMMON NORMALS: regular rate and regular rhythm RATE: regular rate RHYTHM: regular rhythm GI: COMMON NORMALS: Normal to inspection, nondistended, normoactive bowel sounds present, Soft to palpation, non-tender and no masses PALPATION: Yes Soft to palpation : COMMON NORMALS: Yes normal external exam, Yes Testes normal, Yes scrotum normal, Yes no scrotal swelling and Yes No hernias present Extremity: NARRATIVE EXTREMITY EXAM: R LE in boot due to Charcot's joint/surgeries GENERAL: Yes normal exam except as noted LEFT LOWER EXTREMITY: Yes lower leg OTHER: pt with circumferential cellulitis affecting left lower leg; does not involve ankle/foot or knee proximally; localized swelling noted; pulses/cap refill/sensation normal; pt has tenderness to proximal/medial left thigh w/o redness, swelling, masses/bulges/palpable cords/etc Neuro: COMMON NORMALS: patient oriented x3, moves all extremities, no focal motor deficits and no sensory deficits noted SENSORIUM/ORIENTATION: Yes alert, Yes oriented to person, Yes oriented to place and Yes oriented to time Course Consultations: Consultation #1: Dr. Manley-accepts admission Vital Signs: Vital signs: Vital Signs Temperature 98.6 F 06/02/22 00:08 Pulse Rate 77 06/02/22 01:30 Respiratory Rate 21 H 06/02/22 00:08 Blood Pressure 152/78 06/02/22 00:08 Pulse Oximetry 96 06/02/22 01:32 Oxygen Delivery Me thod 06/02/22 00:20 Fraction of Inspir ed Oxygen 25 06/02/22 01:30 MDM - Extremity (Nontraumatic) Medical Decision Making Patient is a 51-year-old male here for cellulitis to his left lower leg. Cellulitis on exam is significant and in the setting of a white count of 22.6 and a CRP of 277 along with his uncontrolled diabetes status, acute kidney injury, and history of MSSA septicemia I think hospitalization would be in his best interest. I spoke to Dr. Alarcon who agrees. I spoke to Dr. Manley who accepts admit. Lab Data 06/01/22 20:30 06/01/22 20:30 Radiology Impressions Venous Duplex 06/01/22 20:17 IMPRESSION: No evidence of deep vein thrombosis. Lower Extremity CT 06/01/22 22:01 IMPRESSION: Findings most likely representing cellulitis. No abscess is identified. COMMENTS: This study covers length of the tibia and fibula. The knee and ankle are partly included on this exam. Laboratory Results WBC 22.6 10^3/uL (4.0-10.0) H 06/01/22 20:30 RBC 5.09 10^6/uL (4.1-5.3) 06/01/22 20:30 Hgb 14.7 g/dL (11.7-16.6) 06/01/22 20:30 Hct 43.9 % (42.0-52.0) 06/01/22 20:30 MCV 86.2 fl (80-94) 06/01/22 20:30 MCH 28.9 pg (28.0-34.0) 06/01/22 20:30 MCHC 33.5 g/dL (30.0-36.0) 06/01/22 20:30 RDW 14.3 % (12.1-15.1) 06/01/22 20:30 Plt Count 204 10^3/cmm (130-400) 06/01/22 20:30 MPV 10.0 fL (7.4-10.4) 06/01/22 20:30 Neut % (Auto) 86.8 % 06/01/22 20:30 Lymph % (Auto) 5.9 % 06/01/22 20:30 [place] % (Auto) 6.5 % 06/01/22 20: Eos % (Auto) 0.0 % 06/01/22 20:30 Baso % (Auto) 0.3 % 06/01/22 20: Neut # (Auto) 19.59 10^3/uL (1.8-7.7) H 06/01/22 20:30 Lymph # (Auto) 1.3 10^3/uL (0.8-4.8) 06/01/22 20: [place] # (Auto) 1.5 10^3/uL (0.2-0.9) H 06/01/22 20:30 Eos # (Auto) 0.0 10^3/uL (0.0-0.8) 06/01/22 20: Baso # (Auto) 0.1 10^3/uL (0.0-0.1) 06/01/22 20: Nucleated RBC % (auto) 0 % 06/01/22 20: Nucleated RBCs # 0.0 /100WBC 06/01/22 20: ESR 53 mm/hr (0-10) H 06/01/22 20:30 Sodium 132 mmol/L (136-145) L 06/01/22 20: Potassium 3.7 mmol/L (3.5-5.1) 06/01/22 20: Chloride 94 mmol/L (98-107) L 06/01/22 20: Carbon Dioxide 23 mmol/L (22-29) 06/01/22 20: Anion Gap 18.7 (5-19) 06/01/22 20: BUN 35 mg/dL (6-20) H 06/01/22 20: Creatinine 1.9 mg/dL (0.7-1.2) H 06/01/22 20:30 GFR Calculation 37.4 mL/min (90-130) L 06/01/22: Glucose 173 mg/dL (65-115) H 06/01/22 20: Estimat Average Glucose 126 06/01/22 20: Hemoglobin A1c 6.0 % (4.0-6.0) 06/01/22 20: Calculated Osmolality 286 mOsm/kg (285-295) 06/01/22 20: Lactic Acid 1.7 mmol/L (0.5-2.2) 06/01/22 20:30 Calcium 9.6 mg/dL (8.5-10.5) 06/01/22 20:30 Total Bilirubin 1.3 mg/dL (0.15-1.2) H 06/01/22 20:30 AST 15 U/L (0-40) 06/01/22 20:30 ALT 13 U/L (0-41) 06/01/22 20:30 Alkaline Phosphatase 123 U/L (40-130) 06/01/22 20:30 Creatine Kinase 158 U/L (39-308) 06/01/22 20:30 C-Reactive Protein 277.0 mg/L (0.0-4.9) H 06/01/22 20:30 Total Protein 9.0 g/dL (6.6-8.7) H 06/01/22 20:30 Albumin 4.4 g/dL (3.5-5.2) 06/01/22 20:30 Globulin 4.6 g/dL (1.3-4.6) 06/01/22 20:30 Discharge Plan Discharge Patient Disposition: Admitted As Inpatient Admit Provider: Ant Manley Clinical Impression: Cellulitis of left leg without foot, Acute kidney injury, Uncontrolled diabetes mellitus Condition: Stable Coding Level of Care Code 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 Time Seen by Provider: 06/01/22 19:57 PFSH ED PFSH: Medical History Accelerated hypertension Acute conjunctivitis, right eye Acute ischemic multifocal multiple vascular territories stroke Acute kidney injury Anemia BPH (benign prostatic hyperplasia) Cellulitis Cellulitis Cellulitis of foot, right Chronic kidney disease Chronic osteomyelitis of right foot CPAP (continuous positive airway pressure) dependence Diabetes Diabetes mellitus with polyneuropathy Diabetic peripheral neuropathy associated with type 2 diabetes mellitus Dyslipidemia Edema Embolic stroke Essential hypertension Gram-positive bacteremia Neuropathy Obesity (BMI 30-39.9) Oliguria Osteomyelitis of toe of right foot Post-acute COVID-19 syndrome Resistant hypertension Respiratory failure with hypoxia S/P angiogram of extremity Saphenous vein clot Sepsis Septicemia Sleep apnea Staphylococcal sepsis T2DM (type 2 diabetes mellitus) Tachycardia with hypertension Family History Other CAD (coronary artery disease) Hypertension Social History Smoking and tobacco status: never smoked Course Vital Signs: Vital signs: Vital Signs Temperature 98.6 F 06/02/22 00:08 Pulse Rate 77 06/02/22 01:30 Respiratory Rate 21 H 06/02/22 00:08 Blood Pressure 152/78 06/02/22 00:08 Pulse Oximetry 96 06/02/22 01:32 Oxygen Delivery Me thod 06/02/22 00:20 Fraction of Inspir ed Oxygen 25 06/02/22 01:30 MDM - Extremity (Nontraumatic) Medical Decision Making Patient is a 51-year-old male here for cellulitis to his left lower leg. Cellulitis on exam is significant and in the setting of a white count of 22.6 and a CRP of 277 along with his uncontrolled diabetes status, acute kidney injury, and history of MSSA septicemia I think hospitalization would be in his best interest. I spoke to Dr. Alarcon who agrees. I spoke to Dr. Manley who accepts admit. This patient was originally seen by Mrs. Magana?DINA Raymundo? I agree with her history, evaluation, and treatment. Lab Data 06/01/22 20:30 06/01/22 20:30 Radiology Impressions Venous Duplex 06/01/22 20:17 IMPRESSION: No evidence of deep vein thrombosis. Lower Extremity CT 06/01/22 22:01 IMPRESSION: Findings most likely representing cellulitis. No abscess is identified. COMMENTS: This study covers length of the tibia and fibula. The knee and ankle are partly included on this exam. Laboratory Results WBC 22.6 10^3/uL (4.0-10.0) H 06/01/22 20:30 RBC 5.09 10^6/uL (4.1-5.3) 06/01/22 20:30 Hgb 14.7 g/dL (11.7-16.6) 06/01/22 20:30 Hct 43.9 % (42.0-52.0) 06/01/22 20:30 MCV 86.2 fl (80-94) 06/01/22: MCH 28.9 pg (28.0-34.0) 06/01/22: MCHC 33.5 g/dL (30.0-36.0) 06/01/22 20: RDW 14.3 % (12.1-15.1) 06/01/22: Plt Count 204 10^3/cmm (130-400) 06/01/22 20: MPV 10.0 fL (7.4-10.4) 06/01/22 20: Neut % (Auto) 86.8 % 06/01/22: Lymph % (Auto) 5.9 % 06/01/22 20: [place] % (Auto) 6.5 % 06/01/22 20: Eos % (Auto) 0.0 % 06/01/22: Baso % (Auto) 0.3 % 06/01/22: Neut # (Auto) 19.59 10^3/uL (1.8-7.7) H 06/01/22 20:30 Lymph # (Auto) 1.3 10^3/uL (0.8-4.8) 06/01/22: [place] # (Auto) 1.5 10^3/uL (0.2-0.9) H 06/01/22 20:30 Eos # (Auto) 0.0 10^3/uL (0.0-0.8) 06/01/22: Baso # (Auto) 0.1 10^3/uL (0.0-0.1) 06/01/22: Nucleated RBC % (auto) 0 % 06/01/22: Nucleated RBCs # 0.0 /100WBC 06/01/22: ESR 53 mm/hr (0-10) H 06/01/22 20:30 Sodium 132 mmol/L (136-145) L 06/01/22 20:30 Potassium 3.7 mmol/L (3.5-5.1) 06/01/22 20: Chloride 94 mmol/L (98-107) L 06/01/22 20: Carbon Dioxide 23 mmol/L (22-29) 06/01/22 20: Anion Gap 18.7 (5-19) 06/01/22 20: BUN 35 mg/dL (6-20) H 06/01/22 20: Creatinine 1.9 mg/dL (0.7-1.2) H 06/01/22 20:30 GFR Calculation 37.4 mL/min (90-130) L 06/01/22: Glucose 173 mg/dL (65-115) H 06/01/22 20: Estimat Average Glucose 126 06/01/22: Hemoglobin A1c 6.0 % (4.0-6.0) 06/01/22: Calculated Osmolality 286 mOsm/kg (285-295) 06/01/22 20: Lactic Acid 1.7 mmol/L (0.5-2.2) 06/01/22 20: Calcium 9.6 mg/dL (8.5-10.5) 06/01/22: Total Bilirubin 1.3 mg/dL (0.15-1.2) H 06/01/22 20: AST 15 U/L (0-40) 06/01/22: ALT 13 U/L (0-41) 06/01/22: Alkaline Phosphatase 123 U/L (40-130) 06/01/22 20: Creatine Kinase 158 U/L (39-308) 06/01/22 20: C-Reactive Protein 277.0 mg/L (0.0-4.9) H 06/01/22 20: Total Protein 9.0 g/dL (6.6-8.7) H 06/01/22 20: Albumin 4.4 g/dL (3.5-5.2) 06/01/22 20: Globulin 4.6 g/dL (1.3-4.6) 06/01/22 20: Discharge Plan Discharge Patient Disposition: Admitted As Inpatient Admit Provider: Ant Manley Clinical Impression: Cellulitis of left leg without foot, Acute kidney injury, Uncontrolled diabetes mellitus Condition: Stable Coding Level of Care Code ED Swage Toolsetter for Chg Fwd Exam Comprehensive
[2022-06-01 20:34] LABS: Basophils # 0.1 10^3/uL (0.0-0.1); Basophils % 0.3 %; Hematocrit 43.9 % (42.0-52.0); Hemoglobin 14.7 g/dL (11.7-16.6); Lymphocytes # 1.3 10^3/uL (0.8-4.8); Lymphocytes % 5.9 %; Mean Corpuscular HGB Conc 33.5 g/dL (30.0-36.0); Mean Corpuscular Hemoglobin 28.9 pg (28.0-34.0); Mean Corpuscular Volume 86.2 fl (80-94); Monocytes # 1.5 10^3/uL (0.2-0.9); Monocytes % 6.5 %; Neutrophils # 19.59 10^3/uL (1.8-7.7); Neutrophils % 86.8 %; Nucleated Red Blood Cells % 0 %; Platelet Count 204 10^3/cmm (130-400); Red Blood Count 5.09 10^6/uL (4.1-5.3); Red Cell Distribution Width 14.3 % (12.1-15.1); White Blood Count 22.6 10^3/uL (4.0-10.0)
[2022-06-01 20:54] LABS: Alanine Aminotransferase 13 U/L (0-41); Albumin Level 4.4 g/dL (3.5-5.2); Alkaline Phosphatase 123 U/L (40-130); Anion Gap 18.7 (5-19); Aspartate Amino Transferase 15 U/L (0-40); Blood Urea Nitrogen 35 mg/dL (6-20); Calcium 9.6 mg/dL (8.5-10.5); Carbon Dioxide 23 mmol/L (22-29); Chloride 94 mmol/L (98-107); Globulin 4.6 g/dL (1.3-4.6); Glomerular Filtration Rate 37.4 mL/min (90-130); Glucose 173 mg/dL (65-115); Osmolality Calculated 286 mOsm/kg (285-295); Potassium 3.7 mmol/L (3.5-5.1); Sodium 132 mmol/L (136-145); Total Bilirubin 1.3 mg/dL (0.15-1.2)
[2022-06-01 20:57] LABS: Lactic Sepsis W/Reflex 1.7 mmol/L (0.5-2.2)
[2022-06-01 21:11] VITALS: BP 153/79; PULSE 100; RESP 16; O2SAT 96
[2022-06-01] MEDS: ceFAZolin 1,000 MG in sodium chloride 0.9% (plus) 50 ML 100 MG IV (21:17)
[2022-06-01 21:36] LABS: Erythrocyte Sedimentation Rate 53 mm/hr (0-10)
--- NOTE | 2022-06-01 22:01 | CTR_ITS ---
PROCEDURE INFORMATION: Exam: CT Left Lower Extremity Without Contrast; Lower Leg Exam date and time: 06/01/2022 10:16 PM Age: 51 years old Clinical indication: Swelling, leg or foot; Additional info: Leg swelling, elevated sed TECHNIQUE: Imaging protocol: CT of the Left lower extremity without contrast was performed. Exam focused on the lower leg. Radiation optimization: All CT scans at this facility use at least one of these dose optimization techniques: automated exposure control; mA and/or kV adjustment per patient size (includes targeted exams where dose is matched to clinical indication); or iterative reconstruction. COMPARISON: [place] [id number] 06/01/2022 8:31 PM RADIATION DOSE METRICS: Total DLP (mGy-cm): 471.41 FINDINGS: Bones/joints: No recent fracture is identified. There is some degenerative change of the ankle with calcific fragments adjacent to the tip of the medial malleolus and distal fibula likely result of old healed trauma. There is no specific bony abnormality to suggest active osteomyelitis. Soft tissues: There is mild soft tissue edema in the subcutaneous soft tissues of the calf, most prominent distally overlying the distal tibia where there is also associated skin thickening and also lateral aspect of the distal leg overlying the distal fibula. These findings may represent cellulitis. Correlation with the clinical findings is suggested. No drainable abscess is identified. CT/CT lower leg LT wo con* [id number] IMPRESSION: Findings most likely representing cellulitis. No abscess is identified. COMMENTS: This study covers length of the tibia and fibula. The knee and ankle are partly included on this exam.
[2022-06-01 22:21] LABS: Creatine Phosphokinase 158 U/L (39-308)
[2022-06-01] MEDS: vancomycin 1,250 MG/250 ML PIGGYBACK 250 MG IV (22:40)
--- NOTE | 2022-06-01 22:53 | P.HP_ITS ---
Providers/Chief Complaint Primary Care Provider: DAVID Pack Chief Complaint: Pain in the left, starting to turn red. History of Present Illness Roney Anthony is a 51 year old male with a past medical history of hypertension, hyperlipidemia, [id number] type 2 diabetes mellitus, history of MSSA bacteremia, history of right foot abscess and cellulitis, who presents [facility] due to left gill erythema, swelling, tenderness. He tells me that for the last few days since he started to develop left gill erythema, swelling, tenderness, low-grade fevers, feeling fatigue, malaise. No bumps no bruises, no animal bites, no cat scratches. He tells me his sugars have been running in the mid 100s. Review of Systems Const: Reports: fever(s) and chills Eyes: Denies: change in vision Card: Denies: chest pain Resp: Denies: dyspnea GI: Denies: abdominal pain : Denies: difficulty urinating Musc: Reports: extremity pain and extremity swelling Skin/Breast: Reports: rash and erythema Neuro: Denies: headache(s) Endo: Denies: polyuria Medications/Allergies Home Medications Medication Instructions Recorded Confirmed Last Taken Type aspirin 81 mg tablet,delayed 81 mg PO DAILY #30 tabs 02/10/21 05/23/22 05/20/22 Rx release (Adult Aspirin Regimen) lisinopril 40 mg tablet 40 mg PO BEDTIME #30 tabs 07/31/21 05/23/22 05/22/22 Rx furosemide 40 mg tablet 40 mg PO BID 12/04/21 05/23/22 Unknown History potassium chloride 20 mEq 20 meq PO DAILY 12/04/21 05/23/22 Unknown History tablet,extended release(part/cryst) spironolactone 50 mg tablet 50 mg PO DAILY #90 tabs 12/24/21 05/23/22 05/22/22 Rx nifedipine 30 mg tablet,extended 30 mg PO TID 90 days #270 tabs 12/31/21 05/23/22 05/23/22 Rx release 24 hr flash glucose scanning reader #1 ea 01/01/22 05/08/22 Unknown Rx (FreeStyle Katherine 14 Day [place]) flash glucose sensor (FreeStyle #1 ea 01/01/22 05/08/22 Unknown Rx Katherine 14 Day Sensor kit) CPAP and supplies #1 ea 01/15/22 05/08/22 Unknown Rx Lumbee Boot to the Right #1 ea 02/27/22 05/08/22 Unknown Rx semaglutide 1 mg/dose (4 mg/3 mL) See Rx Instructions .Route 04/01/22 05/23/22 05/15/22 Rx subcutaneous pen injector (Ozempic) .COMPLEX #3 mL clonidine HCl 0.2 mg tablet 0.2 mg PO BID 90 days #180 tabs 04/22/22 05/23/22 05/23/22 Rx hydralazine 100 mg tablet 100 mg PO TID 05/23/22 05/23/22 05/23/22 History rosuvastatin 10 mg tablet See Rx Instructions .Route 05/27/22 Unknown Rx .COMPLEX #90 tabs Allergies Allergy/AdvReac Type Severity Reaction Status Date / Time Penicillins Allergy Unknown Verified 05/08/22 10:22 PFSH Acute PFSH: Medical History Accelerated hypertension Acute conjunctivitis, right eye Acute ischemic multifocal multiple vascular territories stroke Acute kidney injury Anemia BPH (benign prostatic hyperplasia) Cellulitis Cellulitis Cellulitis of foot, right Chronic kidney disease Chronic osteomyelitis of right foot CPAP (continuous positive airway pressure) dependence Diabetes Diabetes mellitus with polyneuropathy Diabetic peripheral neuropathy associated with type 2 diabetes mellitus Dyslipidemia Edema Embolic stroke Essential hypertension Gram-positive bacteremia Neuropathy Obesity (BMI 30-39.9) Oliguria Osteomyelitis of toe of right foot Post-acute COVID-19 syndrome Resistant hypertension Respiratory failure with hypoxia S/P angiogram of extremity Saphenous vein clot Sepsis Septicemia Sleep apnea Staphylococcal sepsis T2DM (type 2 diabetes mellitus) Tachycardia with hypertension Family History Other CAD (coronary artery disease) Hypertension Social History Smoking and tobacco status: never smoked Vitals/I&O/Wt Last Vital Signs Temp 98.1 F 06/01/22 17:57 Pulse 100 06/01/22 21:11 Resp 16 06/01/22 21:11 BP 153/79 06/01/22 21:11 Pulse Ox 96 06/01/22 21:11 O2 Del Method 06/01/22 21:11 06/01/22 06/01/22 06/01/22 06:59 14:59 22:59 Intake Total 43.333 / 43.333 Balance 43.333 / 43.333 Weight last 48 hrs Weight 122.47 kg Physical Exam Const: COMMON NORMALS: no acute distress and patient oriented x3 HENMT: COMMON NORMALS: normocephalic HEAD & SCALP: normocephalic Eye: COMMON NORMALS: Equal, round and reactive pupils present and EOMs intact bilaterally Lymph: LYMPHATIC: no lymphadenopathy noted Resp: COMMON NORMALS: normal respiratory effort, No retractions, No use of accessory muscles and clear to auscultation bilaterally AUSCULTATION: clear to auscultation bilaterally Cardio: COMMON NORMALS: no JVD, regular rate, regular rhythm, S1 normal heart sound present and S2 normal heart sound present RATE: regular rate RHYTHM: regular rhythm HEART SOUNDS: S1 normal heart sound present and S2 normal hear t sound present GI: COMMON NORMALS: Normal to inspection, nondistended, normoactive bowel sounds present, Soft to palpation and non-tender Extremity: COMMON NORMALS: no pedal edema NARRATIVE EXTREMITY EXAM: On examination, left lower extremity, erythema, swelling, tenderness, extending from just below the knee, not involving knee, just above the ankle Right foot in a boot Neuro: COMMON NORMALS: patient oriented x3, CN's II-XII intact bilaterally and moves all extremities Psych: COMMON NORMALS: mental status grossly normal Data 06/01/22 20:30 06/01/22 20:30 Micro: Microbiology 06/01/22 21:05 Blood Culture - Preliminary Blood SPECIMEN COLLECTED 06/01/22 21:00 Blood Culture - Preliminary Blood SPECIMEN COLLECTED A&P Assessment and plan (1) Cellulitis of left leg without foot: (2) Acute kidney injury: (3) Uncontrolled diabetes mellitus: Qualifiers: Diabetes mellitus type: type 2 Glycemic state: with hyperglycemia Qualified Code(s): E11.65 - Type 2 diabetes mellitus with hyperglycemia (4) SAMNATHA on CPAP: (5) Charcot's joint of right foot: (6) Essential hypertension: (7) T2DM (type 2 diabetes mellitus): (8) Sleep apnea: Qualifiers: Sleep apnea type: unspecified type Qualified Code(s): G47.30 - Sleep apnea, unspecified (9) Goals of care, counseling/discussion: Plan Left leg cellulitis -ESR in the 50s, CRP elevated, leukocytosis CT scan no evidence of osteomyelitis or abscess however it was done without contrast due to kidney function -Ultrasound negative for DVT -Will admit to general medical floors -Start on vancomycin, cefepime -Monitor clinically -Full code -Lovenox for DVT prophylaxis Type 2 diabetes mellitus, low-dose sliding scale Hypertension, hold lisinopril, spironolactone given kidney function KARI on CKD, creatinine 1.8, gentle IV hydration Attestations Medical Necessity Statement*: Patient requires hospitalization, inpatient, greater than 2 midnights, for cellulitis, left leg Coding Level of Care Code Acute Code for g Fwd Diagnoses Cellulitis of left leg without foot L03.116 Acute kidney injury N17.9 Uncontrolled diabetes mellitus E11.65 Diabetes mellitus type: type 2 Glycemic state: with hyperglycemia SAMANTHA on CPAP G47.33; Z99.89 Charcot's joint of right foot M14.671 Essential hypertension I10 T2DM (type 2 diabetes mellitus) E11.9 Sleep apnea G47.30 Sleep apnea type: unspecified type Goals of care, counseling/discussion Z71.89
[2022-06-01] MEDS: atorvastatin 40 mg Tablet PO (23:17)
[2022-06-01] MEDS: enoxaparin 40 mg/0.4 mL Syringe SUBCUT (23:18)
[2022-06-01] MEDS: pantoprazole 40 mg SDV IVP (23:19)
[2022-06-01 23:27] LABS: Estmated Average Glucose 126
[2022-06-02] VITALS (15 sets, daily range): BP systolic 117–154; BP diastolic 66–81; PULSE 50–96; RESP 15–21; TEMP 36.5–38.1; O2SAT 92–96
[2022-06-02] MEDS: sodium chloride 0.9% 1,000 ML 50 ML IV (00:29)
[2022-06-02 05:48] LABS: Basophils # 0.1 10^3/uL (0.0-0.1); Basophils % 0.3 %; Hematocrit 36.6 % (42.0-52.0); Hemoglobin 12.2 g/dL (11.7-16.6); Lymphocytes # 1.1 10^3/uL (0.8-4.8); Lymphocytes % 6.1 %; Mean Corpuscular HGB Conc 33.3 g/dL (30.0-36.0); Mean Corpuscular Hemoglobin 28.3 pg (28.0-34.0); Mean Corpuscular Volume 84.9 fl (80-94); Monocytes # 1.2 10^3/uL (0.2-0.9); Monocytes % 6.7 %; Neutrophils # 15.43 10^3/uL (1.8-7.7); Neutrophils % 86.5 %; Nucleated Red Blood Cells % 0 %; Platelet Count 158 10^3/cmm (130-400); Red Blood Count 4.31 10^6/uL (4.1-5.3); White Blood Count 17.8 10^3/uL (4.0-10.0)
[2022-06-02 06:21] LABS: Anion Gap 14.8 (5-19); Blood Urea Nitrogen 31 mg/dL (6-20); Calcium 8.3 mg/dL (8.5-10.5); Carbon Dioxide 20 mmol/L (22-29); Chloride 98 mmol/L (98-107); Glomerular Filtration Rate 45.6 mL/min (90-130); Glucose 190 mg/dL (65-115); Osmolality Calculated 280 mOsm/kg (285-295); Potassium 3.8 mmol/L (3.5-5.1); Sodium 129 mmol/L (136-145)
[2022-06-02 06:43] LABS: Glucose Point of Care 151 mg/dL (70-110)
--- NOTE | 2022-06-02 07:14 | PC.NURSE ---
Bedside Report given to Pat HEARD
[2022-06-02] MEDS: cefepime 1,000 MG in sodium chloride 0.9% (plus) 50 ML 100 MG IV ×2 (08:56→20:20)
[2022-06-02] MEDS: insulin lispro 100 unit/1 mL SUBCUT ×3 (08:58→17:39)
[2022-06-02] MEDS: acetaminophen 325 mg Tablet 650 MG PO (08:59)
[2022-06-02] MEDS: aspirin 81 mg EC Tablet PO (08:59)
[2022-06-02] MEDS: NIFEdipine ER (24 hr) 30 mg Tablet PO ×3 (08:59→20:21)
[2022-06-02] MEDS: hyDRALAzine 50 mg Tablet 100 MG PO ×3 (08:59→20:21)
[2022-06-02] MEDS: cloNIDine 0.1 mg Tablet 0.2 MG PO ×2 (08:59→17:39)
[2022-06-02] MEDS: vancomycin 1,250 MG/250 ML PIGGYBACK 250 MG IV ×2 (11:05→22:25)
[2022-06-02 11:50] LABS: Glucose Point of Care 184 mg/dL (70-110)
--- NOTE | 2022-06-02 14:26 | P.PN_ITS ---
Subjective Subjective: Patient was seen and examined this morning, noted left lower extremity redness, was complaining lower extremity pain with exertion, has good bilateral DPA. He was also complaining of fever at home 2-3 episodes with maximum Noted temperature of 100. Medications: Medication Review Details: Generic Name Dose Route Start Last Admin Trade Name Willyq PRN Reason Stop Dose Admin Acetaminophen 650 mg 06/01/22 22:49 06/02/22 08:59 Acetaminophen 32 5 Mg Tablet PO 650 mg Q6H PRN Administration Mild/Mod Pain Or Temp >/= 101 Aspirin 81 mg 06/02/22 09:00 06/02/22 08:59 Aspirin 81 Mg Ec Tablet PO 81 mg DAILY SONIA Administration Atorvastatin Calci um 40 mg 06/01/22 23:00 06/01/22 23:17 Atorvastatin 40 Mg Tablet PO 40 mg BEDTIME SONIA Administration Clonidine HCl 0.2 mg 06/02/22 09:00 06/02/22 08:59 Clonidine 0.1 Mg Tablet PO 0.2 mg BID SONIA Administration Enoxaparin Sodium 40 mg 06/01/22 23:00 06/01/22 23:18 Enoxaparin 40 Mg /0.4 Ml Syringe SUBCUT 40 mg Q24H SONIA Administration Hydralazine HCl 100 mg 06/02/22 09:00 06/02/22 08:59 Hydralazine 50 M g Tablet PO 100 mg TID SONIA Administration Cefepime HCl 1,000 mg/ Sodium 50 mls @ 100 mls/ hr 06/02/22 09:00 06/02/22 09:26 Chloride IV Infused Q12H SONIA Infusion Protocol Vancomycin/PEG/NAD A/Lysine/Water 1,250 mg in 250 m ls @ 250 mls/hr 06/01/22 22:30 06/02/22 12:15 Vancocin IV Infused Q12H SONIA Infusion Sodium Chloride 1,000 mls @ 50 ml s/hr 06/01/22 23:00 06/02/22 00:29 Sodium Chloride 0.9% IV 50 mls/hr .Q20H SONIA Administration Insulin Human Lisp ro 0 unit 06/02/22 08:00 06/02/22 12:46 Insulin Lispro 1 00 Unit/1 Ml SUBCUT 1 unit TIDWM SONIA Administration Protocol Nifedipine 30 mg 06/02/22 09:00 06/02/22 08:59 Nifedipine Er (2 4 Hr) 30 Mg Tablet PO 30 mg TID SONIA Administration Pantoprazole Sodiu m 40 mg 06/01/22 23:00 06/01/22 23:19 Pantoprazole 40 Mg Sdv IVP 40 mg Q24H SONIA Administration Vitals/I&O/Wt Last Vital Signs Temp 98.4 F 06/02/22 12:00 Pulse 80 06/02/22 12:00 Resp 17 06/02/22 12:00 BP 142/77 06/02/22 12:00 Pulse Ox 93 06/02/22 12:00 O2 Del Method 06/02/22 12:00 FiO2 25 06/02/22 03:06 06/01/22 06/02/22 06/02/22 22:59 06:59 14:59 Intake Total 43.333 / 43.333 256.667 / 788.772 3703 / 1140 Output Total 550 / 550 Balance 43.333 / 43.333 256.667 / 300.000 590 / 590 Weight last 48 hrs Weight 118.297 kg Weight 122.47 kg Physical Exam Const: COMMON NORMALS: patient oriented x3 HENMT: COMMON NORMALS: normocephalic and atraumatic HEAD & SCALP: normocephalic and atraumatic Resp: COMMON NORMALS: clear to auscultation bilaterally EFFORT & INSPECTION: Yes symmetric chest movement AUSCULTATION: clear to auscultation bilaterally Cardio: COMMON NORMALS: regular rate, regular rhythm, S1 normal heart sound pr esent, S2 normal heart sound present, No gallops present (Cardio), No murmurs present (Cardio), No rub (Cardio) and Peripheral pulses 2+ throughout RATE: regular rate RHYTHM: regular rhythm HEART SOUNDS: S1 normal heart sound present and S2 normal heart sound present PERIPHERAL PULSES: Peripheral pulses 2+ throughout GI: COMMON NORMALS: Normal to inspection, nondistended, normoactive bowel sounds present, Soft to palpation, non-tender, No hepatosplenomegaly present and no masses AUSCULTATION: Yes normoactive bowel sounds PALPATION: Yes Soft to palpation and Yes No hepatosplenomegaly present RECTAL EXAM: Yes deferred Extremity: COMMON NORMALS: no clubbing, cyanosis or edema and no pedal edema NARRATIVE EXTREMITY EXAM: Left lower extremity redness present Neuro: COMMON NORMALS: patient oriented x3 Data 06/02/22 05:35 06/02/22 05:35 Micro: Microbiology 06/01/22 21:05 Blood Culture - Preliminary Blood SPECIMEN COLLECTED 06/01/22 21:00 Blood Culture - Preliminary Blood SPECIMEN COLLECTED A&P Assessment and plan (1) Cellulitis of left leg without foot: (2) Acute kidney injury: (3) Uncontrolled diabetes mellitus: Qualifiers: Diabetes mellitus type: type 2 Glycemic state: with hyperglycemia Qualified Code(s): E11.65 - Type 2 diabetes mellitus with hyperglycemia (4) SAMANTHA on CPAP: (5) Charcot's joint of right foot: (6) Essential hypertension: (7) T2DM (type 2 diabetes mellitus): (8) Sleep apnea: Qualifiers: Sleep apnea type: unspecified type Qualified Code(s): G47.30 - Sleep apnea, unspecified (9) Goals of care, counseling/discussion: Plan 51-year-old with past medical history of hypertension diabetes chronic osteomyelitis of the right foot. Was admitted for the management of acute onset of left lower extremity redness, started on Friday and since then it has progressively worsened, also reports 2-3 episodes of fever with noted T-max of 100. Currently is being managed for: Assessment: Left lower extremity cellulitis: Sepsis ruled out: The patient has leukocytosis, fever at home, but has no signs of endorgan damage. CT lower leg LT wo con: Suggestive of cellulitis. If it most needed CT with contrast can be done Lower extremity Doppler negative for DVT ESR:50 , CRP: 277 , lactic acid 1.7 Follow blood culture Currently on broad-spectrum antibiotics Vanco and cefepime Likely CKD stage III V/S possible MILD KARI on CKD Admission serum creatinine is 1.9, likely baseline serum creatinine stays around 1-1.6. Monitor intake output charting Avoid nephrotoxic's Monitor BMP Hypertension: Continue hydralazine clonidine, nifedipine, hold lisinopril and spironolactone Type 2 diabetes mellitus, low-dose sliding scale CODE STATUS: Full code DVT prophylaxis on Lovenox Attestations Medical Necessity Statement*: Patient is to be in hospital for management of cellulitis. Coding Level of Care Code Acute Code for [facility] Diagnoses Cellulitis of left leg without foot L03.116 Acute kidney injury N17.9 Uncontrolled diabetes mellitus E11.65 Diabetes mellitus type: type 2 Glycemic state: with hyperglycemia SAMANTHA on CPAP G47.33; Z99.89 Charcot's joint of right foot M14.671 Essential hypertension I10 T2DM (type 2 diabetes mellitus) E11.9 Sleep apnea G47.30 Sleep apnea type: unspecified type Goals of care, counseling/discussion Z71.89
[2022-06-02] MEDS: sodium chloride 0.9% 1,000 ML 100 ML IV (15:58)
[2022-06-02 16:32] LABS: Glucose Point of Care 210 mg/dL (70-110)
--- NOTE | 2022-06-02 20:00 | PC.NURSE ---
Pt refusing to wear art supervisor at this time. This nurse provided education on the importance of wearing the monitor and the risk of not. Pt verbalized understanding and does not want to wear the monitor at this time.
[2022-06-02] MEDS: atorvastatin 40 mg Tablet PO (20:22)
[2022-06-02 21:00] LABS: Glucose Point of Care 182 mg/dL (70-110)
[2022-06-02] MEDS: enoxaparin 40 mg/0.4 mL Syringe SUBCUT (22:26)
[2022-06-02] MEDS: pantoprazole 40 mg SDV IVP (22:26)
--- NOTE | 2022-06-02 23:23 | PC.NURSE ---
Contacted Obi in pharmacy, he said to complete the infusion of Vanc that is running right now and the schedule will change to Q18hr after this dose
[2022-06-03] VITALS (8 sets, daily range): BP systolic 104–143; BP diastolic 61–81; PULSE 68–87; RESP 15–21; TEMP 36.3–36.6; O2SAT 95–97
[2022-06-03] MEDS: sodium chloride 0.9% 1,000 ML 100 ML IV ×3 (00:40→20:51)
[2022-06-03 04:52] LABS: Basophils # 0.1 10^3/uL (0.0-0.1); Basophils % 0.4 %; Eosinophils # 0.1 10^3/uL (0.0-0.8); Eosinophils % 0.8 %; Hematocrit 33.8 % (42.0-52.0); Lymphocytes # 1.6 10^3/uL (0.8-4.8); Lymphocytes % 14.1 %; Mean Corpuscular HGB Conc 32.5 g/dL (30.0-36.0); Mean Corpuscular Hemoglobin 28.6 pg (28.0-34.0); Mean Corpuscular Volume 87.8 fl (80-94); Mean Platelet Volume 10.9 fL (7.4-10.4); Neutrophils # 8.42 10^3/uL (1.8-7.7); Neutrophils % 75.3 %; Nucleated Red Blood Cells % 0 %; Platelet Count 164 10^3/cmm (130-400); Red Blood Count 3.85 10^6/uL (4.1-5.3); Red Cell Distribution Width 14.3 % (12.1-15.1); White Blood Count 11.2 10^3/uL (4.0-10.0)
[2022-06-03 05:05] LABS: Erythrocyte Sedimentation Rate 44 mm/hr (0-10)
[2022-06-03 05:15] LABS: Alanine Aminotransferase 13 U/L (0-41); Albumin Level 3.2 g/dL (3.5-5.2); Alkaline Phosphatase 82 U/L (40-130); Blood Urea Nitrogen 24 mg/dL (6-20); C Reactive Protein 181.9 mg/L (0.0-4.9); Calcium 8.2 mg/dL (8.5-10.5); Carbon Dioxide 20 mmol/L (22-29); Chloride 102 mmol/L (98-107); Globulin 3.5 g/dL (1.3-4.6); Glomerular Filtration Rate 49.1 mL/min (90-130); Glucose 133 mg/dL (65-115); Osmolality Calculated 282 mOsm/kg (285-295); Sodium 133 mmol/L (136-145); Total Bilirubin 0.4 mg/dL (0.15-1.2); Total Protein 6.7 g/dL (6.6-8.7)
[2022-06-03 05:16] LABS: Anion Gap 14.9 (5-19); Aspartate Amino Transferase 21 U/L (0-40); Potassium 3.9 mmol/L (3.5-5.1)
[2022-06-03 06:51] LABS: Glucose Point of Care 168 mg/dL (70-110)
--- NOTE | 2022-06-03 07:12 | PC.NURSE ---
Bedside Report given to Pat HEARD
[2022-06-03] MEDS: hyDRALAzine 50 mg Tablet 100 MG PO ×3 (09:36→20:52)
[2022-06-03] MEDS: NIFEdipine ER (24 hr) 30 mg Tablet PO ×3 (09:36→20:53)
[2022-06-03] MEDS: aspirin 81 mg EC Tablet PO (09:36)
[2022-06-03] MEDS: cloNIDine 0.1 mg Tablet 0.2 MG PO ×2 (09:37→18:19)
[2022-06-03] MEDS: cefepime 1,000 MG in sodium chloride 0.9% (plus) 50 ML 100 MG IV (09:37)
[2022-06-03 11:32] LABS: Glucose Point of Care 191 mg/dL (70-110)
--- NOTE | 2022-06-03 11:52 | PC.CHAP ---
Pastoral Care Encounter/Spiritual Assessment Type of Contact [] Declined coating technician visit [] Patient/Family/Request visit [] Outpatient visit [] Follow-up visit [] Physician referral [] Code/Alert [x] Routine visit [] Staff referral [] Actively dying [] Patient sleeping [] Family support [] [] Out of room [] Palliative care [] [] Receiving care in room [] Pre-surgical visit [] Trauma [] Long length of stay [] ICU visit [] Other: Relational/Emotional Strength [x] Patient feels connected with others/family/visitors/staff [] Distress [] Loneliness/isolation [] Abandonment Spirituality of Patient [x] Person of Fior [] Attends Gnosticist of their Fior [x] Believes in Prayer [] Reads Bible or Anabaptism materials [] There are Spiritual issues to be addressed Tube Sizer Operator Interventions [x] Prayer [x] Active listening [x] Non-anxious presence [] Spiritual/emotional support [] Crisis/trauma care [] Spiritual counseling [] Bereavement support [] Provided bereavement packet [] Provided Bible/devotional materials [] Provided toy/stuffed animal, coloring book to patient or family member [] Provided Communion [] Anointing/[place] [] Salvation [x] Completed spiritual assessment [] Other: Impact on Illness or Injury [] Angry [] Fearful [] Anxious [] Often cries [] Exhaustion [] Unable to work [] Unable to attend pentecostal [] Unable to walk/stand [] Unable to read [] Unable to drive [] Unable to eat/drink [] Unable to sleep [] Unable to be with family [] Patient intubated [] Other: Summary Time spent with patient 10 min
[2022-06-03] MEDS: insulin lispro 100 unit/1 mL SUBCUT ×3 (12:08→22:07)
[2022-06-03 16:57] LABS: Glucose Point of Care 152 mg/dL (70-110)
--- NOTE | 2022-06-03 19:12 | PM.PN ---
Subjective Subjective: Hospital course, labs appreciated. Seen with family at bedside. Patient he is laying down comfortably in bed. States he does not feel much different than the leg pain has resolved. Has remained hemodynamically stable and afebrile. Vitals/I&O/Wt Last Vital Signs Temp 97.3 F L 06/03/22 16:00 Pulse 72 06/03/22 16:00 Resp 18 06/03/22 16:00 BP 143/81 06/03/22 18:19 Pulse Ox 96 06/03/22 16:00 O2 Del Method 06/03/22 16:00 FiO2 25 06/03/22 03:38 06/03/22 06/03/22 06/03/22 06:59 14:59 22:59 Intake Total 463.333 / 3550.000 1546.667 / 1546.667 480 / 202.667 Output Total 975 / 1925 Balance -511.667 / 6574.152 5344.667 / 1546.667 480 / 2025.667 Weight last 48 hrs Weight 118.297 kg Physical Exam Const: COMMON NORMALS: no acute distress and patient oriented x3 HENMT: COMMON NORMALS: normocephalic and atraumatic HEAD & SCALP: normocephalic and atraumatic Eye: COMMON NORMALS: Equal, round and reactive pupils present and EOMs intact bilaterally PUPIL: Yes Equal, round and reactive pupils present Neck/C-Spine: COMMON NORMALS: no JVD Lymph: LYMPHATIC: no lymphadenopathy noted Resp: COMMON NORMALS: normal respiratory effort, No retractions, No use of accessory muscles and clear to auscultation bilaterally EFFORT & INSPECTION: Yes symmetric chest movement AUSCULTATION: clear to auscultation bilaterally Cardio: COMMON NORMALS: no JVD, regular rate, regular rhythm, S1 normal heart sound present, S2 normal heart sound present, No gallops present (Cardio), No murmurs present (Cardio), No rub (Cardio) and Peripheral pulses 2+ throughout RATE: regular rate RHYTHM: regular rhythm HEART SOUNDS: S1 normal heart sound present and S2 normal heart sound present PERIPHERAL PULSES: Peripheral pulses 2+ throughout GI: COMMON NORMALS: Normal to inspection, nondistended, normoactive bowel sounds present, Soft to palpation, non-tender, No hepatosplenomegaly present and no masses AUSCULTATION: Yes normoactive bowel sounds PALPATION: Yes Soft to palpation and Yes No hepatosplenomegaly present RECTAL EXAM: Yes deferred Extremity: COMMON NORMALS: no clubbing, cyanosis or edema and no pedal edema NARRATIVE EXTREMITY EXAM: Left lower extremity redness present, tenderness, shiny skin, no open wounds Neuro: COMMON NORMALS: patient oriented x3, CN's II-XII intact bilaterally and moves all extremities Psych: COMMON NORMALS: mental status grossly normal Data 06/03/22 04:24 06/03/22 04:24 Micro: Microbiology 06/01/22 21:05 Blood Culture - Preliminary Blood NEGATIVE TO DATE 06/01/22 21:00 Blood Culture - Preliminary Blood NEGATIVE TO DATE A&P Assessment and plan (1) Cellulitis of left leg without foot: (2) Acute kidney injury: Baseline creatinine 6 months ago around 1. Since January 2022 has been as high as 1.4-1.6. Concerns for diabetic nephropathy. Creatinine seems to be at new baseline. Patient is more of a CKD than KARI. (3) Charcot's joint of right foot: (4) Essential hypertension: Goal blood pressure less than 140/90 mmHg. Continue with home antihypertensives for now. (5) T2DM (type 2 diabetes mellitus): Diabetes better controlled now. A1c around 6. Takes Ozempic at home weekly. Missed last dose. States mostly blood sugar ranging from 1 50-250. Continue insulin sliding scale. (6) Sleep apnea: Qualifiers: Sleep apnea type: unspecified type Qualified Code(s): G47.30 - Sleep apnea, unspecified (7) Goals of care, counseling/discussion: (8) SAMANTHA on CPAP: (9) CKD (chronic kidney disease): Plan 51-year-old with past medical history of hypertension diabetes chronic osteomyelitis of the right foot. Was admitted for the management of acute onset of left lower extremity redness, started on Friday and since then it has progressively worsened, also reports 2-3 episodes of fever with noted T-max of 100. Currently is being managed for: Assessment: Left lower extremity cellulitis: Sepsis ruled out: The patient has leukocytosis, fever at home, but has no signs of endorgan damage. CT lower leg LT wo con: Suggestive of cellulitis without abscess or bone involvement. CRP elevated on admission. MRSA negative in the past. Vancomycin. Switch to meropenem for anaerobic coverage. Follow-up blood cultures. Patient history of MSSA bacteremia in the past. CODE STATUS: Full code DVT prophylaxis on Lovenox Attestations Medical Necessity Statement*: Requires further hospitalization for management of left lower leg cellulitis in setting of uncontrolled diabetes and Charcot's foot. Time Spent in Patient Care: Greater than 35 minutes Coding Level of Care Code Acute Code for [facility] Fwd Diagnoses Cellulitis of left leg without foot L03.116 Acute kidney injury N17.9 Charcot's joint of right foot M14.671 Essential hypertension I10 T2DM (type 2 diabetes mellitus) E11.9 Sleep apnea G47.30 Sleep apnea type: unspecified type Goals of care, counseling/discussion Z71.89 SAMANTHA on CPAP G47.33; Z99.89 CKD (chronic kidney disease) N18.9
[2022-06-03] MEDS: meropenem 1,000 MG in sodium chloride 0.9% (plus) 50 ML 100 MG IV (20:48)
[2022-06-03] MEDS: atorvastatin 40 mg Tablet PO (20:52)
[2022-06-03 21:07] LABS: Glucose Point of Care 175 mg/dL (70-110)
[2022-06-03] MEDS: pantoprazole 40 mg SDV IVP (22:07)
[2022-06-03] MEDS: enoxaparin 40 mg/0.4 mL Syringe SUBCUT (22:08)
[2022-06-04] VITALS (11 sets, daily range): BP systolic 104–141; BP diastolic 56–73; PULSE 72–82; RESP 15–18; TEMP 36.6–36.9; O2SAT 93–95
[2022-06-04] MEDS: meropenem 1,000 MG in sodium chloride 0.9% (plus) 50 ML 100 MG IV ×3 (05:09→19:55)
[2022-06-04] MEDS: sodium chloride 0.9% 1,000 ML 100 ML IV (05:10)
[2022-06-04 06:32] LABS: Basophils % 0.5 %; Eosinophils # 0.1 10^3/uL (0.0-0.8); Eosinophils % 1.4 %; Hematocrit 34.2 % (42.0-52.0); Hemoglobin 10.9 g/dL (11.7-16.6); Lymphocytes # 1.3 10^3/uL (0.8-4.8); Lymphocytes % 15.3 %; Mean Corpuscular HGB Conc 31.9 g/dL (30.0-36.0); Mean Corpuscular Hemoglobin 28.1 pg (28.0-34.0); Mean Corpuscular Volume 88.1 fl (80-94); Mean Platelet Volume 10.8 fL (7.4-10.4); Monocytes # 0.6 10^3/uL (0.2-0.9); Monocytes % 7.1 %; Neutrophils # 6.34 10^3/uL (1.8-7.7); Neutrophils % 75.1 %; Nucleated Red Blood Cells % 0 %; Platelet Count 194 10^3/cmm (130-400); Red Blood Count 3.88 10^6/uL (4.1-5.3); Red Cell Distribution Width 14.1 % (12.1-15.1); White Blood Count 8.4 10^3/uL (4.0-10.0)
[2022-06-04 06:50] LABS: Glucose Point of Care 168 mg/dL (70-110)
[2022-06-04 06:56] LABS: Alanine Aminotransferase 39 U/L (0-41); Albumin Level 2.9 g/dL (3.5-5.2); Alkaline Phosphatase 108 U/L (40-130); Anion Gap 15.8 (5-19); Aspartate Amino Transferase 41 U/L (0-40); Blood Urea Nitrogen 19 mg/dL (6-20); Calcium 8.9 mg/dL (8.5-10.5); Carbon Dioxide 21 mmol/L (22-29); Chloride 106 mmol/L (98-107); Globulin 3.8 g/dL (1.3-4.6); Glomerular Filtration Rate 63.6 mL/min (90-130); Glucose 138 mg/dL (65-115); Osmolality Calculated 292 mOsm/kg (285-295); Potassium 3.8 mmol/L (3.5-5.1); Sodium 139 mmol/L (136-145); Total Bilirubin 0.4 mg/dL (0.15-1.2); Total Protein 6.7 g/dL (6.6-8.7)
[2022-06-04 08:14] LABS: Slide Review Slide Review Perform
[2022-06-04] MEDS: cloNIDine 0.1 mg Tablet 0.2 MG PO ×2 (08:47→17:45)
[2022-06-04] MEDS: NIFEdipine ER (24 hr) 30 mg Tablet PO ×3 (08:47→20:01)
[2022-06-04] MEDS: aspirin 81 mg EC Tablet PO (08:47)
[2022-06-04] MEDS: hyDRALAzine 50 mg Tablet 100 MG PO ×3 (08:47→20:01)
[2022-06-04] MEDS: insulin lispro 100 unit/1 mL SUBCUT ×4 (08:47→20:34)
[2022-06-04 11:39] LABS: Glucose Point of Care 200 mg/dL (70-110)
--- NOTE | 2022-06-04 14:18 | P.PN_ITS ---
Subjective Subjective: No acute events overnight. Patient denies any nausea, vomiting, headache. Sitting up in bed today having his meal. States it leg feels less swollen but continues to remain red. Denies any pain in the leg. Vitals/I&O/Wt Last Vital Signs Temp 97.9 F 06/04/22 08:00 Pulse 80 06/04/22 08:00 Resp 18 06/04/22 08:00 BP 122/56 06/04/22 12:15 Pulse Ox 94 06/04/22 08:00 O2 Del Method 06/04/22 03:43 FiO2 25 06/03/22 03:38 06/03/22 06/04/22 06/04/22 22:59 06:59 14:59 Intake Total 1530 / 3076.667 881.667 / 3958.334 50 / 50 Output Total 700 / 700 800 / 1500 Balance 830 / 2376.667 81.667 / 2458.334 50 / 50 Physical Exam Const: COMMON NORMALS: no acute distress and patient oriented x3 HENMT: COMMON NORMALS: normocephalic and atraumatic HEAD & SCALP: normo cephalic and atraumatic Eye: COMMON NORMALS: Equal, round and reactive pupils present and EOMs intact bilaterally PUPIL: Yes Equal, round and reactive pupils present Neck/C-Spine: COMMON NORMALS: no JVD Lymph: LYMPHATIC: no lymphadenopathy noted Resp: COMMON NORMALS: normal respiratory effort, No retractions, No use of accessory muscles and clear to auscultation bilaterally EFFORT & INSPECTION: Yes symmetric chest movement AUSCULTATION: clear to auscultation bilaterally Cardio: COMMON NORMALS: no JVD, regular rate, regular rhythm, S1 normal heart sound present, S2 normal heart sound present, No gallops present (Cardio), No murmurs present (Cardio), No rub (Cardio) and Peripheral pulses 2+ throughout RATE: regular rate RHYTHM: regular rhythm HEART SOUNDS: S1 normal heart sound present and S2 normal heart sound present PERIPHERAL PULSES: Peripheral pulses 2+ throughout GI: COMMON NORMALS: Normal to inspection, nondistended, normoactive bowel sounds present, Soft to palpation, non-tender, No hepatosplenomegaly present and no masses AUSCULTATION: Yes normoactive bowel sounds PALPATION: Yes Soft to palpation and Yes No hepatosplenomegaly present RECTAL EXAM: Yes deferred Extremity: COMMON NORMALS: no clubbing, cyanosis or edema and no pedal edema NARRATIVE EXTREMITY EXAM: Left lower extremity redness present, tenderness, shiny skin, no open wounds Neuro: COMMON NORMALS: patient oriented x3, CN's II-XII intact bilaterally and moves all extremities Psych: COMMON NORMALS: mental status grossly normal Data 06/04/22 05:45 06/04/22 05:45 A&P Assessment and plan (1) Cellulitis of left leg without foot: (2) Acute kidney injury: Baseline creatinine 6 months ago around 1. Since January 2022 has been as high as 1.4-1.6. Concerns for diabetic nephropathy. Creatinine seems to be at new baseline. Patient is more of a CKD than KARI. (3) Charcot's joint of right foot: (4) Essential hypertension: Goal blood pressure less than 140/90 mmHg. Continue with home antihypertensives for now. (5) T2DM (type 2 diabetes mellitus): Diabetes better controlled now. A1c around 6. Takes Ozempic at home weekly. Missed last dose. States mostly blood sugar ranging from 1 50-250. Continue insulin sliding scale. (6) Sleep apnea: Qualifiers: Sleep apnea type: unspecified type Qualified Code(s): G47.30 - Sleep apnea, unspecified (7) Goals of care, counseling/discussion: (8) SAMANTHA on CPAP: (9) CKD (chronic kidney disease): Plan 51-year-old with past medical history of hypertension diabetes chronic osteomyelitis of the right foot. Was admitted for the management of acute onset of left lower extremity redness, started on Friday and since then it has progressively worsened, also reports 2-3 episodes of fever with noted T-max of 100. Currently is being managed for: Assessment: Left lower extremity cellulitis: Sepsis ruled out: The patient has leukocytosis, fever at home, but has no signs of endorgan damage. CT of the leg ruled out any abscess or bone involvement. MRSA negative. Vancomycin stopped yesterday. Continue with meropenem. Leukocytosis has resolved today. Follow-up blood cultures so far negative. Patient does have a history of abscesses as kalemia in the past. CODE STATUS: Full code DVT prophylaxis on Lovenox Attestations Medical Necessity Statement*: Requires further hospitalization for management of cellulitis in a patient with uncontrolled type 2 diabetes mellitus and Charcot's foot. Time Spent in Patient Care: Greater than 35 minutes Coding Level of Care Code Acute Code for [facility] Diagnoses Cellulitis of left leg without foot L03.116 Acute kidney injury N17.9 Charcot's joint of right foot M14.671 Essential hypertension I10 T2DM (type 2 diabetes mellitus) E11.9 Sleep apnea G47.30 Sleep apnea type: unspecified type Goals of care, counseling/discussion Z71.89 SAMANTHA on CPAP G47.33; Z99.89 CKD (chronic kidney disease) N18.9
[2022-06-04 17:03] LABS: Glucose Point of Care 158 mg/dL (70-110)
[2022-06-04] MEDS: artificial tears Op Soln 15 mL Btl 1 DROP EYE-BOTH (18:13)
[2022-06-04] MEDS: atorvastatin 40 mg Tablet PO (20:01)
[2022-06-04 20:29] LABS: Glucose Point of Care 207 mg/dL (70-110)
[2022-06-04] MEDS: pantoprazole 40 mg SDV IVP (22:39)
[2022-06-04] MEDS: enoxaparin 40 mg/0.4 mL Syringe SUBCUT (22:39)
[2022-06-05] VITALS (10 sets, daily range): BP systolic 111–139; BP diastolic 63–79; PULSE 66–89; RESP 14–20; TEMP 36.4–37.1; O2SAT 90–99
[2022-06-05] MEDS: meropenem 1,000 MG in sodium chloride 0.9% (plus) 50 ML 100 MG IV ×3 (04:01→19:57)
[2022-06-05 04:50] LABS: Basophils # 0.1 10^3/uL (0.0-0.1); Basophils % 0.6 %; Eosinophils # 0.2 10^3/uL (0.0-0.8); Eosinophils % 1.9 %; Hematocrit 34.1 % (42.0-52.0); Hemoglobin 10.7 g/dL (11.7-16.6); Lymphocytes # 1.8 10^3/uL (0.8-4.8); Lymphocytes % 18.7 %; Mean Corpuscular HGB Conc 31.4 g/dL (30.0-36.0); Mean Corpuscular Hemoglobin 27.5 pg (28.0-34.0); Mean Corpuscular Volume 87.7 fl (80-94); Mean Platelet Volume 10.1 fL (7.4-10.4); Monocytes # 0.7 10^3/uL (0.2-0.9); Monocytes % 7.2 %; Neutrophils # 6.63 10^3/uL (1.8-7.7); Neutrophils % 70.6 %; Nucleated Red Blood Cells % 0 %; Platelet Count 213 10^3/cmm (130-400); Red Blood Count 3.89 10^6/uL (4.1-5.3); Red Cell Distribution Width 13.9 % (12.1-15.1); White Blood Count 9.4 10^3/uL (4.0-10.0)
[2022-06-05 05:04] LABS: Alanine Aminotransferase 34 U/L (0-41); Albumin Level 3.1 g/dL (3.5-5.2); Alkaline Phosphatase 107 U/L (40-130); Anion Gap 15.9 (5-19); Aspartate Amino Transferase 25 U/L (0-40); Blood Urea Nitrogen 18 mg/dL (6-20); Calcium 8.3 mg/dL (8.5-10.5); Carbon Dioxide 21 mmol/L (22-29); Chloride 105 mmol/L (98-107); Globulin 3.6 g/dL (1.3-4.6); Glomerular Filtration Rate 78.5 mL/min (90-130); Glucose 135 mg/dL (65-115); Osmolality Calculated 290 mOsm/kg (285-295); Potassium 3.9 mmol/L (3.5-5.1); Sodium 138 mmol/L (136-145); Total Bilirubin 0.3 mg/dL (0.15-1.2); Total Protein 6.7 g/dL (6.6-8.7)
[2022-06-05 06:50] LABS: Glucose Point of Care 142 mg/dL (70-110)
[2022-06-05] MEDS: cloNIDine 0.1 mg Tablet 0.2 MG PO ×2 (09:47→18:15)
[2022-06-05] MEDS: aspirin 81 mg EC Tablet PO (09:47)
[2022-06-05] MEDS: hyDRALAzine 50 mg Tablet 100 MG PO ×3 (09:47→19:59)
[2022-06-05] MEDS: insulin lispro 100 unit/1 mL SUBCUT ×3 (09:47→21:53)
[2022-06-05] MEDS: NIFEdipine ER (24 hr) 30 mg Tablet PO ×3 (09:47→19:59)
--- NOTE | 2022-06-05 10:47 | P.PN_ITS ---
Subjective Subjective: No acute events overnight. Remains afebrile and hemodynamically stable. States his leg is feeling better. Does have a blister developing at the posterior aspect of the calf muscles without any open wounds. Also complaining of burning and watering of the right eye without changes in the vision. Also has a new blister at the nape of his nose on the right side. Does give history of herpes zoster in the past. Denies any pain in the ear. Vitals/I&O/Wt Last Vital Signs Temp 97.8 F 06/05/22 08:00 Pulse 67 06/05/22 08:00 Resp 17 06/05/22 08:00 BP 135/78 06/05/22 09:47 Pulse Ox 93 06/05/22 08:00 O2 Del Method 06/05/22 08:00 FiO2 25 06/03/22 03:38 06/04/22 06/05/22 06/05/22 22:59 06:59 14:59 Intake Total 1825 / 2495 200 / 2695 240 / 240 Output Total 350 / 350 Balance 1475 / 2145 200 / 2345 240 / 240 Physical Exam Const: COMMON NORMALS: no acute distress and patient oriented x3 HENMT: COMMON NORMALS: normocephalic and atraumatic HEAD & SCALP: normocephalic and atraumatic Eye: COMMON NORMALS: Equal, round and reactive pupils present and EOMs intact bilaterally PUPIL: Yes Equal, round and reactive pupils present Neck/C-Spine: COMMON NORMALS: no JVD Lymph: LYMPHATIC: no lymphadenopathy noted Resp: COMMON NORMALS: normal respiratory effort, No retractions, No use of accessory muscles and clear to auscultation bilaterally EFFORT & INSPECTION: Yes symmetric chest movement AUSCULTATION: clear to auscultation bilaterally Cardio: COMMON NORMALS: no JVD, regular rate, regular rhythm, S1 normal heart sound present, S2 normal heart sound present, No gallops present (Cardio), No murmurs present (Cardio), No rub (Cardio) and Peripheral pulses 2+ throughout RATE: regular rate RHYTHM: regular rhythm HEART SOUNDS: S1 normal heart sound present and S2 normal heart sound present PERIPHERAL PULSES: Peripheral pulses 2+ throughout GI: COMMON NORMALS: Normal to inspection, nondistended, normoactive bowel sounds present, Soft to palpation, non-tender, No hepatosplenomegaly present and no masses AUSCULTATION: Yes normoactive bowel sounds PALPATION: Yes Soft to palpation and Yes No hepatosplenomegaly present RECTAL EXAM: Yes deferred Extremity: COMMON NORMALS: no clubbing, cyanosis or edema and no pedal edema NARRATIVE EXTREMITY EXAM: Left lower extremity redness present, tenderness, shiny skin, no open wounds Neuro: COMMON NORMALS: patient oriented x3, CN's II-XII intact bilaterally and moves all extremities Psych: COMMON NORMALS: mental status grossly normal Data 06/05/22 04:18 06/05/22 04:18 A&P Assessment and plan (1) Cellulitis of left leg without foot: (2) Acute kidney injury: Baseline creatinine 6 months ago around 1. Since January 2022 has been as high as 1.4-1.6. Concerns for diabetic nephropathy. Creatinine trending down to 1 today. Patient is more of a CKD than KAIR. (3) Herpes zoster conjunctivitis of right eye: History of herpes zoster in the past. Has crusting and redness of the right eye along with blisters on the nose. Continue with tobramycin and artificial tears eyedrops. Started on IV acyclovir 10 mg/kg body weight Q8 hourly. Maintain hydration with normal saline 50 cc/h. We will plan to continue medication 48 hours and change to oral depending on clinical picture. (4) Charcot's joint of right foot: (5) Essential hypertension: Goal blood pressure less than 140/90 mmHg. Continue with home antihypertensives for now. (6) T2DM (type 2 diabetes mellitus): Diabetes better controlled now. A1c around 6. Takes Ozempic at home weekly. Missed last dose. States mostly blood sugar ranging from 1 50-250. Continue insulin sliding scale. (7) Sleep apnea: Qualifiers: Sleep apnea type: unspecified type Qualified Code(s): G47.30 - Sleep apnea, unspecified (8) Goals of care, counseling/discussion: (9) SAMANTHA on CPAP: (10) CKD (chronic kidney disease): Plan 51-year-old with past medical history of hypertension diabetes chronic osteomyelitis of the right foot. Was admitted for the management of acute onset of left lower extremity redness, started on Friday and since then it has progressively worsened, also reports 2-3 episodes of fever with noted T-max of 100. Currently is being managed for: Assessment: Left lower extremity cellulitis: Sepsis ruled out: The patient has leukocytosis, fever at home, but has no signs of endorgan damage. CT of the leg ruled out any abscess or bone involvement. MRSA negative. Vancomycin stopped 06/03. Continue with meropenem. We will continue IV antibiotics for next 48 hours and switch to oral on discharge. Leukocytosis has resolved today. Follow-up blood cultures so far negative. Patient does have a history of MSSA bacteremia in the past. CODE STATUS: Full code DVT prophylaxis on Lovenox Attestations Medical Necessity Statement*: Requires further hospitalization for management of cellulitis of the left leg, herpes zoster conjunctivitis of right eye. Time Spent in Patient Care: Greater than 35 minutes Coding Level of Care Code Acute Code for [facility] Diagnoses Cellulitis of left leg without foot L03.116 Acute kidney injury N17.9 Herpes zoster conjunctivitis of right eye B02.31 Charcot's joint of right foot M14.671 Essential hypertension I10 T2DM (type 2 diabetes mellitus) E11.9 Sleep apnea G47.30 Sleep apnea type: unspecified type Goals of care, counseling/discussion Z71.89 SAMANTHA on CPAP G47.33; Z99.89 CKD (chronic kidney disease) N18.9
[2022-06-05] MEDS: sodium chloride 0.9% 1,000 ML 50 ML IV (11:50)
[2022-06-05 12:24] LABS: Glucose Point of Care 191 mg/dL (70-110)
[2022-06-05] MEDS: acyclovir 1,000 MG in sodium chloride 0.9% (100 ml) 100 ML 120 MG IV ×2 (14:07→21:53)
[2022-06-05 16:57] LABS: Glucose Point of Care 124 mg/dL (70-110)
[2022-06-05] MEDS: atorvastatin 40 mg Tablet PO (19:59)
[2022-06-05 21:20] LABS: Glucose Point of Care 148 mg/dL (70-110)
[2022-06-05] MEDS: enoxaparin 40 mg/0.4 mL Syringe SUBCUT (21:55)
[2022-06-05] MEDS: pantoprazole 40 mg SDV IVP (22:57)
[2022-06-06] VITALS (11 sets, daily range): BP systolic 125–165; BP diastolic 71–88; PULSE 63–91; RESP 16–20; TEMP 36.4–36.7; O2SAT 94–98
[2022-06-06] MEDS: meropenem 1,000 MG in sodium chloride 0.9% (plus) 50 ML 100 MG IV ×3 (03:44→21:08)
[2022-06-06] MEDS: acyclovir 1,000 MG in sodium chloride 0.9% (100 ml) 100 ML 120 MG IV ×3 (05:55→22:00)
[2022-06-06 06:35] LABS: Glucose Point of Care 127 mg/dL (70-110)
[2022-06-06] MEDS: cloNIDine 0.1 mg Tablet 0.2 MG PO ×2 (08:30→18:02)
[2022-06-06] MEDS: hyDRALAzine 50 mg Tablet 100 MG PO ×3 (08:31→21:09)
[2022-06-06] MEDS: NIFEdipine ER (24 hr) 30 mg Tablet PO ×3 (08:31→21:09)
[2022-06-06] MEDS: aspirin 81 mg EC Tablet PO (08:31)
[2022-06-06 11:26] LABS: Glucose Point of Care 192 mg/dL (70-110)
--- NOTE | 2022-06-06 11:45 | CT_ITS ---
WS: [id number] INDICATION: Cellulitis/abscess TECHNIQUE: Noncontrast CT LEFT lower leg with coronal and sagittal reformatted images. COMPARISON: CT June 01, 2022 FINDINGS: Diffuse skin thickening LEFT lower leg and calf. Inflammatory stranding and edema subcutane ous soft tissues compatible with cellulitis. Subcutaneous fluid and edema in the dorsal calf soft tis sues. No drainable collections. Vascular calcification. Chronic tiny avulsion fractures at the tip of the medial and lateral malleolus unchanged. 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 Hypertrophi c patella. Achilles enthesophyte. CT/CT lower leg LT wo con* [id number] IMPRESSION: 1. No evidence of drainable abscess or fluid collection. 2. Skin thickening with inflammatory stranding and edema in the subcutaneous s oft tissues extending into the intramuscular soft tissues compatible with cellu litis. No drainable fluid collections. 3. Vascular calcification. 4. No other significant changes from previous.
[2022-06-06] MEDS: sodium chloride 0.9% 1,000 ML 50 ML IV (12:03)
[2022-06-06] MEDS: insulin lispro 100 unit/1 mL SUBCUT ×2 (12:31→22:06)
[2022-06-06] MEDS: tobramycin 0.3% Op Soln 5 mL Btl 1 DROP EYE-BOTH ×2 (12:38→18:06)
[2022-06-06 12:52] LABS: C Reactive Protein 111.9 mg/L (0.0-4.9)
[2022-06-06] MEDS: vancomycin 1,500 MG/300 ML PIGGYBACK 200 MG IV (14:07)
--- NOTE | 2022-06-06 14:59 | P.PN_ITS ---
Subjective Subjective: No acute events overnight. Denies any nausea, vomiting, headache. States is a lot better. Denies any further burning in the eye. Eyes are less watering. Crusting of nasal vesicular rash. Denies any pain in the legs. Denies any further rash. Leg continues to look erythematous and angry looking Vitals/I&O/Wt Last Vital Signs Temp 97.5 F L 06/06/22 14:16 Pulse 69 06/06/22 14:16 Resp 16 06/06/22 14:16 BP 125/71 06/06/22 14:16 Pulse Ox 97 06/06/22 14:16 O2 Del Method 06/06/22 14:16 FiO2 25 06/03/22 03:38 06/05/22 06/06/22 06/06/22 22:59 06:59 14:59 Intake Total 650 / 1420 1085 / 2505 240 / 240 Output Total 500 / 500 425 / 925 Balance 150 / 920 660 / 1580 240 / 240 Physical Exam Const: COMMON NORMALS: no acute distress and patient oriented x3 HENMT: COMMON NORMALS: normocephalic and atraumatic HEAD & SCALP: normocephalic and atraumatic Eye: COMMON NORMALS: Equal, round and reactive pupils present and EOMs intact bilaterally PUPIL: Yes Equal, round and reactive pupils present Neck/C-Spine: COMMON NORMALS: no JVD Lymph: LYMPHATIC: no lymphadenopathy noted Resp: COMMON NORMALS: normal respiratory effort, No retractions, No use of accessory muscles and clear to auscultation bilaterally EFFORT & INSPECTION: Yes symmetric chest movement AUSCULTATION: clear to auscultation bilaterally Cardio: COMMON NORMALS: no JVD, regular rate, regular rhythm, S1 normal heart sound present, S2 normal heart sound present, No gallops present (Cardio), No murmurs present (Cardio), No rub (Cardio) and Peripheral pulses 2+ throughout RATE: regular rate RHYTHM: regular rhythm HEART SOUNDS: S1 normal heart sound present and S2 normal heart sound present PERIPHERAL PULSES: Peripheral pulses 2+ throughout GI: COMMON NORMALS: Normal to inspection, nondistended, normoactive bowel sounds present, Soft to palpation, non-tender, No hepatosplenomegaly present and no masses AUSCULTATION: Yes normoactive bowel sounds PALPATION: Yes Soft to palpation and Yes No hepatosplenomegaly present RECTAL EXAM: Yes deferred Extremity: COMMON NORMALS: no clubbing, cyanosis or edema and no pedal edema NARRATIVE EXTREMITY EXAM: Left lower extremity redness present, tenderness, shiny skin, no open wounds, posteriorly at calf multiple vesicular rash present Neuro: COMMON NORMALS: patient oriented x3, CN's II-XII intact bilaterally and moves all extremities Psych: COMMON NORMALS: mental status grossly normal Data 06/05/22 04:18 06/05/22 04:18 A&P Assessment and plan (1) Cellulitis of left leg without foot: (2) Acute kidney injury: Baseline creatinine 6 months ago around 1. Since January 2022 has been as hig h as 1.4-1.6. Concerns for diabetic nephropathy. Creatinine trending down to 1 today. Patient is more of a CKD than KARI. (3) Herpes zoster conjunctivitis of right eye: History of herpes zoster in the past. Has crusting and redness of the right eye along with blisters on the nose. Continue with tobramycin and artificial tears eyedrops. Started on IV acyclovir 1 g every 8 hourly. Maintain hydration with normal saline 50 cc/h. We will plan to continue medication 48 hours and change to oral depending on clinical picture. (4) Charcot's joint of right foot: (5) Essential hypertension: Goal blood pressure less than 140/90 mmHg. Continue with home antihypertensives for now. (6) T2DM (type 2 diabetes mellitus): Diabetes better controlled now. A1c around 6. Takes Ozempic at home weekly. Missed last dose. States mostly blood sugar ranging from 1 50-250. Continue insulin sliding scale. (7) Sleep apnea: Qualifiers: Sleep apnea type: unspecified type Qualified Code(s): G47.30 - Sleep apnea, unspecified (8) Goals of care, counseling/discussion: (9) SAMANTHA on CPAP: (10) CKD (chronic kidney disease): Plan 51-year-old with past medical history of hypertension diabetes chronic osteomyelitis of the right foot. Was admitted for the management of acute onset of left lower extremity redness, started on Friday and since then it has progressively worsened, also reports 2-3 episodes of fever with noted T-max of 100. Currently is being managed for: Assessment: Left lower extremity cellulitis: Sepsis ruled out: The patient has leukocytosis, fever at home, but has no signs of endorgan damage. On admission CT of the leg ruled out any abscess or bone involvement. MRSA negative in past. Vancomycin stopped 06/03. Continue with meropenem. Leukocytosis has resolved today. Follow-up blood cultures so far negative. Patient does have a history of MSSA b acteremia in the past. Patient persistently has extensive erythema of the rash along with vesicular changes at the calf region. States tenderness and pain in his legs. Given persistence of erythema even being on antibiotic for 4 days. Check CRP, CT leg without contrast to rule out any abscess or deep tissue involvement. Disseminated herpes less likely as patient does not have any other rash than the right eye and left leg. Continue with meropenem. Add vancomycin again. Check MRSA swab again. CODE STATUS: Full code DVT prophylaxis on Lovenox Attestations Medical Necessity Statement*: Requires further hospitalization for management of extensive left leg cellulitis, right face herpes with eye involvement Time Spent in Patient Care: Greater than 35 minutes Coding Level of Care Code Acute Code for [facility] Diagnoses Cellulitis of left leg without foot L03.116 Acute kidney injury N17.9 Herpes zoster conjunctivitis of right eye B02.31 Charcot's joint of right foot M14.671 Essential hypertension I10 T2DM (type 2 diabetes mellitus) E11.9 Sleep apnea G47.30 Sleep apnea type: unspecified type Goals of care, counseling/discussion Z71.89 SAMANTHA on CPAP G47.33; Z99.89 CKD (chronic kidney disease) N18.9
[2022-06-06 17:20] LABS: Glucose Point of Care 101 mg/dL (70-110)
[2022-06-06] MEDS: polyethylene glycol 3350 Pkt 17 gm PO (18:02)
[2022-06-06] MEDS: atorvastatin 40 mg Tablet PO (21:09)
[2022-06-06 22:02] LABS: Glucose Point of Care 154 mg/dL (70-110)
[2022-06-06] MEDS: enoxaparin 40 mg/0.4 mL Syringe SUBCUT (22:07)
[2022-06-06] MEDS: pantoprazole 40 mg SDV IVP (23:55)
[2022-06-07] VITALS (11 sets, daily range): BP systolic 128–171; BP diastolic 72–81; PULSE 60–76; RESP 18–21; TEMP 36.4–37.1; O2SAT 96–100
[2022-06-07] MEDS: vancomycin 1,500 MG/300 ML PIGGYBACK 200 MG IV ×2 (01:41→14:39)
[2022-06-07] MEDS: meropenem 1,000 MG in sodium chloride 0.9% (plus) 50 ML 100 MG IV ×3 (04:14→20:24)
[2022-06-07 05:08] LABS: Basophils # 0.1 10^3/uL (0.0-0.1); Basophils % 0.5 %; Eosinophils # 0.4 10^3/uL (0.0-0.8); Eosinophils % 3.2 %; Hematocrit 32.5 % (42.0-52.0); Hemoglobin 10.6 g/dL (11.7-16.6); Lymphocytes # 2.1 10^3/uL (0.8-4.8); Lymphocytes % 18.2 %; Mean Corpuscular HGB Conc 32.6 g/dL (30.0-36.0); Mean Corpuscular Hemoglobin 28.5 pg (28.0-34.0); Mean Corpuscular Volume 87.4 fl (80-94); Mean Platelet Volume 9.8 fL (7.4-10.4); Monocytes # 0.7 10^3/uL (0.2-0.9); Monocytes % 6.4 %; Neutrophils # 8.07 10^3/uL (1.8-7.7); Neutrophils % 70.7 %; Nucleated Red Blood Cells % 0 %; Platelet Count 249 10^3/cmm (130-400); Red Blood Count 3.72 10^6/uL (4.1-5.3); Red Cell Distribution Width 13.2 % (12.1-15.1); White Blood Count 11.4 10^3/uL (4.0-10.0)
[2022-06-07 05:39] LABS: Alanine Aminotransferase 23 U/L (0-41); Alkaline Phosphatase 113 U/L (40-130); Anion Gap 14.1 (5-19); Aspartate Amino Transferase 14 U/L (0-40); Blood Urea Nitrogen 13 mg/dL (6-20); Calcium 8.3 mg/dL (8.5-10.5); Carbon Dioxide 25 mmol/L (22-29); Chloride 104 mmol/L (98-107); Globulin 3.6 g/dL (1.3-4.6); Glomerular Filtration Rate 88.6 mL/min (90-130); Glucose 134 mg/dL (65-115); Osmolality Calculated 290 mOsm/kg (285-295); Potassium 4.1 mmol/L (3.5-5.1); Sodium 139 mmol/L (136-145); Total Bilirubin 0.3 mg/dL (0.15-1.2); Total Protein 6.6 g/dL (6.6-8.7)
[2022-06-07] MEDS: acyclovir 1,000 MG in sodium chloride 0.9% (100 ml) 100 ML 120 MG IV ×3 (06:07→22:25)
[2022-06-07 06:26] LABS: Glucose Point of Care 140 mg/dL (70-110)
[2022-06-07] MEDS: NIFEdipine ER (24 hr) 30 mg Tablet PO ×3 (08:48→20:24)
[2022-06-07] MEDS: hyDRALAzine 50 mg Tablet 100 MG PO ×3 (08:48→20:24)
[2022-06-07] MEDS: cloNIDine 0.1 mg Tablet 0.2 MG PO ×2 (08:48→17:47)
[2022-06-07] MEDS: polyethylene glycol 3350 Pkt 17 gm PO (08:48)
[2022-06-07] MEDS: aspirin 81 mg EC Tablet PO (08:48)
[2022-06-07 10:51] LABS: Glucose Point of Care 192 mg/dL (70-110)
[2022-06-07] MEDS: tobramycin 0.3% Op Soln 5 mL Btl 1 DROP EYE-BOTH ×2 (12:15→18:45)
[2022-06-07] MEDS: insulin lispro 100 unit/1 mL SUBCUT ×3 (12:15→21:11)
--- NOTE | 2022-06-07 13:55 | P.PN_ITS ---
Subjective Subjective: No acute events overnight. Patient has remained hemodynamically stable and afebrile. Laying comfortably in bed. States eyes are feeling a lot better. Denies any watering or burning anymore. Leg on examination looks less red and angry today. Posterior part of the calf is looking darker and this scabbing without any open bleeding wounds. Complaining of mild pain in the legs. Vitals/I&O/Wt Last Vital Signs Temp 97.6 F 06/07/22 08:00 Pulse 76 06/07/22 08:00 Resp 18 06/07/22 08:00 BP 171/78 06/07/22 08:48 Pulse Ox 96 06/07/22 08:00 O2 Del Method 06/07/22 08:00 FiO2 25 06/03/22 03:38 06/06/22 06/07/22 06/07/22 22:59 06:59 14:59 Intake Total 1000 / 1240 1200 / 2440 360 / 360 Output Total 1500 / 1500 800 / 2300 Balance -500 / -260 400 / 140 360 / 360 Physical Exam Const: COMMON NORMALS: no acute distress and patient oriented x3 HENMT: COMMON NORMALS: normocephalic and atraumatic HEAD & SCALP: normocephalic and atraumatic Eye: COMMON NORMALS: Equal, round and reactive pupils present and EOMs intact bilaterally PUPIL: Yes Equal, round and reactive pupils present Neck/C-Spine: COMMON NORMALS: no JVD Lymph: LYMPHATIC: no lymphadenopathy noted Resp: COMMON NORMALS: normal respiratory effort, No retractions, No use of accessory muscles and clear to auscultation bilaterally EFFORT & INSPECTION: Yes symmetric chest movement AUSCULTATION: clear to auscultation bilaterally Cardio: COMMON NORMALS: no JVD, regular rate, regular rhythm, S1 normal heart sound present, S2 normal heart sound present, No gallops present (Cardio), No murmurs present (Cardio), No rub (Cardio) and Peripheral pulses 2+ throughout RATE: regular rate RHYTHM: regular rhythm HEART SOUNDS: S1 normal heart sound present and S2 normal heart sound present PERIPHERAL PULSES: Peripheral pulses 2+ throughout GI: COMMON NORMALS: Normal to inspection, nondistended, normoactive bowel sounds present, Soft to palpation, non-tender, No hepatosplenomegaly present and no masses AUSCULTATION: Yes normoactive bowel sounds PALPATION: Yes Soft to palpation and Yes No hepatosplenomegaly present RECTAL EXAM: Yes deferred Extremity: COMMON NORMALS: no clubbing, cyanosis or edema and no pedal edema NARRATIVE EXTREMITY EXAM: Left lower extremity redness present, tenderness, shiny skin, no open wounds, posteriorly at calf multiple vesicular rash present Neuro: COMMON NORMALS: patient oriented x3, CN's II-XII intact bilaterally and moves all extremities Psych: COMMON NORMALS: mental status grossly normal Data 06/07/22 04:42 06/07/22 04:42 Micro: Microbiology 06/01/22 21:00 Blood Culture - Final Blood NO GROWTH AFTER 5 DAYS 06/01/22 21:05 Blood Culture - Final Blood NO GROWTH AFTER 5 DAYS 06/06/22 10:48 MRSA Culture - Final Nose A&P Assessment and plan (1) Cellulitis of left leg without foot: (2) Acute kidney injury: Baseline creatinine 6 months ago around 1. Since January 2022 has been as high as 1.4-1.6. Concerns for diabetic nephropathy. Creatinine trending down to 1 today. Patient is more of a CKD than KARI. (3) Herpes zoster conjunctivitis of right eye: History of herpes zoster in the past. Has crusting and redness of the right eye along with blisters on the nose. Continue with tobramycin and artificial tears eyedrops. Continue with IV acyclovir 1 g every 8 hourly. Day 3/5 today. Will plan to transition over to oral Valtrex on discharge. Maintain hydration with normal saline 50 cc/h. We will plan to continue medication 48 hours and change to oral depending on clinical picture. (4) Charcot's joint of right foot: (5) Essential hypertension: Goal blood pressure less than 140/90 mmHg. Continue with home antihypertensives for now. (6) T2DM (type 2 diabetes mellitus): Diabetes better controlled now. A1c around 6. Takes Ozempic at home weekly. Missed last dose. States mostly blood sugar ranging from 1 50-250. Continue insulin sliding scale. (7) Sleep apnea: Qualifiers: Sleep apnea type: unspecified type Qualified Code(s): G47.30 - Sleep apnea, unspecified (8) Goals of care, counseling/discussion: (9) SAMANTHA on CPAP: (10) CKD (chronic kidney disease): Plan 51-year-old with past medical history of hypertension diabetes chronic osteomyelitis of the right foot. Was admitted for the management of acute onset of left lower extremity redness, started on Friday and since then it has progressively worsened, also reports 2-3 episodes of fever with noted T-max of 100. Currently is being managed for: Assessment: Left lower extremity cellulitis: Sepsis ruled out: The patient has leukocytosis, fever at home, but has no signs of endorgan damage. On admission CT of the leg ruled out any abscess or bone involvement. MRSA negative in past. Vancomycin stopped 06/03. Continue with meropenem. Leukocytosis has resolved today. Follow-up blood cultures so far negative. Patient does have a history of MSSA bacteremia in the past. Repeat CT scan from 06/06 appreciated. Negative for any abscess or fluid collection. Concerning for extensive cellulitis down to muscles. Appreciate CRP levels elevated but still trending down. For now continue with vancomycin and meropenem. MRSA tested negative. Given slight improvement for now we will continue with vancomycin and meropenem. Leg elevation. CODE STATUS: Full code DVT prophylaxis on Lovenox Attestations Medical Necessity Statement*: Requires further hospitalization for management of extensive cellulitis of left leg, herpes zoster conjunctivitis of right eye Time Spent in Patient Care: Greater than 35 minutes Coding Level of Care Code Acute Code for [facility] Diagnoses Cellulitis of left leg without foot L03.116 Acute kidney injury N17.9 Herpes zoster conjunctivitis of right eye B02.31 Charcot's joint of right foot M14.671 Essential hypertension I10 T2DM (type 2 diabetes mellitus) E11.9 Sleep apnea G47.30 Sleep apnea type: unspecified type Goals of care, counseling/discussion Z71.89 SAMANTHA on CPAP G47.33; Z99.89 CKD (chronic kidney disease) N18.9
[2022-06-07] MEDS: sodium chloride 0.9% 1,000 ML 50 ML IV (14:40)
[2022-06-07 17:02] LABS: Glucose Point of Care 147 mg/dL (70-110)
[2022-06-07] MEDS: atorvastatin 40 mg Tablet PO (20:24)
[2022-06-07 20:55] LABS: Glucose Point of Care 149 mg/dL (70-110)
[2022-06-07] MEDS: pantoprazole 40 mg SDV IVP (22:25)
[2022-06-07] MEDS: enoxaparin 40 mg/0.4 mL Syringe SUBCUT (22:25)
[2022-06-08] VITALS (7 sets, daily range): BP systolic 120–148; BP diastolic 73–83; PULSE 53–78; RESP 15–19; TEMP 36.4–36.8; O2SAT 94–98
--- NOTE | 2022-06-08 01:34 | PC.NURSE ---
Patient states they have some leg pain but does not want medication for it.
[2022-06-08 01:44] LABS: Vancomycin Trough 16.2 ug/mL (10-15)
[2022-06-08] MEDS: vancomycin 1,500 MG/300 ML PIGGYBACK 200 MG IV (02:05)
[2022-06-08] MEDS: meropenem 1,000 MG in sodium chloride 0.9% (plus) 50 ML 100 MG IV ×3 (04:40→20:19)
[2022-06-08] MEDS: acyclovir 1,000 MG in sodium chloride 0.9% (100 ml) 100 ML 120 MG IV ×3 (05:35→21:48)
[2022-06-08 06:18] LABS: Glucose Point of Care 133 mg/dL (70-110)
[2022-06-08] MEDS: cloNIDine 0.1 mg Tablet 0.2 MG PO ×2 (10:00→17:04)
[2022-06-08] MEDS: tobramycin 0.3% Op Soln 5 mL Btl 1 DROP EYE-BOTH ×2 (10:00→17:05)
[2022-06-08] MEDS: hyDRALAzine 50 mg Tablet 100 MG PO ×3 (10:00→20:19)
[2022-06-08] MEDS: aspirin 81 mg EC Tablet PO (10:00)
[2022-06-08] MEDS: NIFEdipine ER (24 hr) 30 mg Tablet PO ×3 (10:00→20:19)
[2022-06-08] MEDS: polyethylene glycol 3350 Pkt 17 gm PO (10:01)
[2022-06-08 11:27] LABS: Glucose Point of Care 306 mg/dL (70-110)
[2022-06-08] MEDS: sodium chloride 0.9% 1,000 ML 50 ML IV (12:28)
[2022-06-08] MEDS: insulin lispro 100 unit/1 mL SUBCUT ×2 (12:28→21:46)
--- NOTE | 2022-06-08 14:15 | PM.PN ---
Subjective Subjective: No acute events overnight. Patient denies any nausea, vomiting, headache. Seen with family at bedside. No further burning or crusting in the eye. States leg feels a lot better. Denies any open wounds. Vitals/I&O/Wt Last Vital Signs Temp 97.6 F 06/08/22 11:29 Pulse 71 06/08/22 11:29 Resp 15 06/08/22 11:29 BP 137/80 06/08/22 11:29 Pulse Ox 98 06/08/22 11:29 O2 Del Method 06/08/22 11:29 FiO2 25 06/03/22 03:38 06/07/22 06/08/22 06/08/22 22:59 06:59 14:59 Intake Total 1591 / 2341 590 / 2931 1170 / 1170 Output Total 700 / 700 1100 / 1800 1100 / 1100 Balance 891 / 1641 -510 / 1131 70 / 70 Physical Exam Const: COMMON NORMALS: no acute distress and patient oriented x3 HENMT: COMMON NORMALS: normocephalic and atraumatic HEAD & SCALP: normocephalic and atraumatic Eye: COMMON NORMALS: Equal, round and reactive pupils present and EOMs intact bilaterally PUPIL: Yes Equal, round and reactive pupils present Neck/C-Spine: COMMON NORMALS: no JVD Lymph: LYMPHATIC: no lymphadenopathy noted Resp: COMMON NORMALS: normal respiratory effort, No retractions, No use of accessory muscles and clear to auscultation bilaterally EFFORT & INSPECTION: Yes symmetric chest movement AUSCULTATION: clear to auscultation bilaterally Cardio: COMMON NORMALS: no JVD, regular rate, regular rhythm, S1 normal heart sound present, S2 normal heart sound present, No gallops present (Cardio), No murmurs present (Cardio), No rub (Cardio) and Peripheral pulses 2+ throughout RATE: regular rate RHYTHM: regular rhythm HEART SOUNDS: S1 normal heart sound present and S2 normal heart sound present PERIPHERAL PULSES: Peripheral pulses 2+ throughout GI: COMMON NORMALS: Normal to inspection, nondistended, normoactive bowel sounds present, Soft to palpation, non-tender, No hepatosplenomegaly present and no masses AUSCULTATION: Yes normoactive bowel sounds PALPATION: Yes Soft to palpation and Yes No hepatosplenomegaly present RECTAL EXAM: Yes deferred Extremity: COMMON NORMALS: no clubbing, cyanosis or edema and no pedal edema NARRATIVE EXTREMITY EXAM: Left lower extremity redness present, tenderness, Leg less edematous, rash less angry appearing, posterior iliac, darker skin with scab without any open wounds Neuro: COMMON NORMALS: patient oriented x3, CN's II-XII intact bilaterally and moves all extremities Psych: COMMON NORMALS: mental status grossly normal Data 06/07/22 04:42 06/07/22 04:42 A&P Assessment and plan (1) Cellulitis of left leg without foot: (2) Acute kidney injury: Baseline creatinine 6 months ago around 1. Since January 2022 has been as high as 1.4-1.6. Concerns for diabetic nephropathy. Creatinine trending down to 1 today. Patient is more of a CKD than KARI. (3) Herpes zoster conjunctivitis of right eye: History of herpes zoster in the past. Has crusting and redness of the right eye along with blisters on the nose. Continue with tobramycin and artificial tears eyedrops. Continue with IV acyclovir 1 g every 8 hourly. Day 3/5 today. Will plan to transition over to oral Valtrex on discharge. Maintain hydration with normal saline 50 cc/h. We will plan to continue medication 48 hours and change to oral depending on clinical picture. (4) Charcot's joint of right foot: (5) Essential hypertension: Goal blood pressure less than 140/90 mmHg. Continue with home antihypertensives for now. (6) T2DM (type 2 diabetes mellitus): Diabetes better controlled now. A1c around 6. Takes Ozempic at home weekly. Missed last dose. States mostly blood sugar ranging from 1 50-250. Continue insulin sliding scale. (7) Sleep apnea: Qualifiers: Sleep apnea type: unspecified type Qualified Code(s): G47.30 - Sleep apnea, unspecified (8) Goals of care, counseling/discussion: (9) SAMANTHA on CPAP: (10) CKD (chronic kidney disease): Plan 51-year-old with past medical history of hypertension diabetes chronic osteomyelitis of the right foot. Was admitted for the management of acute onset of left lower extremity redness, started on Friday and since then it has progressively worsened, also reports 2-3 episodes of fever with noted T-max of 100. Currently is being managed for: Assessment: Left lower extremity cellulitis: Sepsis ruled out: The patient has leukocytosis, fever at home, but has no signs of endorgan damage. On admission CT of the leg ruled out any abscess or bone involvement. MRSA negative in past. Vancomycin stopped 06/03. Continue with meropenem. Leukocytosis has resolved today. Follow-up blood cultures so far negative. Patient does have a history of MSSA bacteremia in the past. Repeat CT scan from 06/06 appreciated. Negative for any abscess or fluid collection. Concerning for extensive cellulitis down to muscles. Appreciate CRP levels elevated but still trending down. For now continue with vancomycin and meropenem. MRSA tested negative. Given slight improvement for now we will continue with vancomycin and meropenem. Leg elevation. Plan for the day: Continue with IV vancomycin and meropenem for now. Continue with IV acyclovir. Plan for continuing antimicrobials for next 24 hours and then transition to oral. If continues to remain stable plan for discharge in next 24 hours. Continue current regimen for blood pressures. Blood pressures at goal of 140/90 mmHg. CODE STATUS: Full code DVT prophylaxis on Lovenox Attestations Medical Necessity Statement*: Requires further hospitalization for management of extensive lower leg cellulitis. Time Spent in Patient Care: 16 - 35 minutes Coding Level of Care Code Acute Code for [facility] Fwd Diagnoses Cellulitis of left leg without foot L03.116 Acute kidney injury N17.9 Herpes zoster conjunctivitis of right eye B02.31 Charcot's joint of right foot M14.671 Essential hypertension I10 T2DM (type 2 diabetes mellitus) E11.9 Sleep apnea G47.30 Sleep apnea type: unspecified type Goals of care, counseling/discussion Z71.89 SAMANTHA on CPAP G47.33; Z99.89 CKD (chronic kidney disease) N18.9
[2022-06-08] MEDS: vancomycin 1,500 MG/300 ML PIGGYBACK 150 MG IV (14:37)
[2022-06-08 17:07] LABS: Glucose Point of Care 92 mg/dL (70-110)
[2022-06-08] MEDS: atorvastatin 40 mg Tablet PO (20:19)
[2022-06-08 20:36] LABS: Glucose Point of Care 193 mg/dL (70-110)
[2022-06-08] MEDS: pantoprazole 40 mg SDV IVP (23:21)
[2022-06-08] MEDS: enoxaparin 40 mg/0.4 mL Syringe SUBCUT (23:21)
[2022-06-09] VITALS: BP 122/73; PULSE 64; RESP 16; TEMP 36.6; O2SAT 97
[2022-06-09] MEDS: vancomycin 1,500 MG/300 ML PIGGYBACK 150 MG IV (01:30)
[2022-06-09 04:00] VITALS: BP 133/78; PULSE 58; RESP 17; TEMP 36.3; O2SAT 97
[2022-06-09] MEDS: meropenem 1,000 MG in sodium chloride 0.9% (plus) 50 ML 100 MG IV ×2 (04:36→12:23)
[2022-06-09] MEDS: acyclovir 1,000 MG in sodium chloride 0.9% (100 ml) 100 ML 120 MG IV (06:14)
[2022-06-09 06:32] LABS: Glucose Point of Care 142 mg/dL (70-110)
[2022-06-09 08:00] VITALS: BP 162/80; PULSE 65; RESP 18; TEMP 36.4; O2SAT 91
[2022-06-09 08:47] VITALS: BP 162/80
[2022-06-09] MEDS: NIFEdipine ER (24 hr) 30 mg Tablet PO (08:47)
[2022-06-09] MEDS: aspirin 81 mg EC Tablet PO (08:47)
[2022-06-09] MEDS: hyDRALAzine 50 mg Tablet 100 MG PO (08:47)
[2022-06-09] MEDS: polyethylene glycol 3350 Pkt 17 gm PO (08:47)
[2022-06-09] MEDS: cloNIDine 0.1 mg Tablet 0.2 MG PO (08:47)
[2022-06-09] MEDS: tobramycin 0.3% Op Soln 5 mL Btl 1 DROP EYE-BOTH (10:26)
[2022-06-09 11:02] LABS: Glucose Point of Care 194 mg/dL (70-110)
[2022-06-09 12:00] VITALS: BP 148/83; PULSE 73; RESP 16; O2SAT 94
[2022-06-09] MEDS: insulin lispro 100 unit/1 mL SUBCUT (12:22)
--- NOTE | 2022-06-09 13:27 | P.DS_ITS ---
Discharge Providers Date of Admission: 06/01/22 22:49 Date of Discharge: June 09, 2022 Attending Provider at Admission: Ant Manley MD Attending Provider at Discharge: Yasir Esquivel MD Primary Care Provider: DAVID Pack Diagnoses at Discharge Discharge Diagnosis (1) Cellulitis of left leg without foot: Status: Acute (2) Acute kidney injury: Status: Acute (3) Herpes zoster conjunctivitis of right eye: Status: Acute (4) Charcot's joint of right foot: Status: Acute (5) Essential hypertension: Status: Acute (6) T2DM (type 2 diabetes mellitus): Status: Acute (7) Sleep apnea: Status: Acute Qualifiers: Sleep apnea type: unspecified type Qualified Code(s): G47.30 - Sleep apnea, unspecified (8) Goals of care, counseling/discussion: Status: Acute (9) SAMANTHA on CPAP: Status: Acute (10) CKD (chronic kidney disease): Status: Acute Reason for Visit Reason for Visit: Pain in the left, starting to turn red. Hospital Course Hospital Course Roney Anthony is a 51 year old male with a past medical history of hypertension, hyperlipidemia, [id number] type 2 diabetes mellitus, history of MSSA bacteremia, history of right foot abscess and cellulitis, who presents [facility] due to left gill erythema, swelling, tenderness.? He tells me that for the last few days since he started to develop left gill erythema, swelling, tenderness, low-grade fevers, feeling fatigue, malaise.? No bumps no bruises, no animal bites, no cat scratches.? He tells me his sugars have been running in the mid 100s. Patient was under the hospital further evaluation and management of cellulitis. He was started on broad-spectrum antibiotics. During hospitalization blood cultures remain negative. His cellulitis improved very gradually and slowly. Repeat CT scan was done which again ruled out abscess or osteomyelitis. His hospitalization was complicated by him developing zoster of his right eye for which he was started on IV acyclovir. Eventually started improving. He has been discharged hemodynamically stable condition on oral antibiotics and oral Valtrex for 1 more week with advised to follow-up with his primary care provider within next 10 days. Physical Exam Const: COMMON NORMALS: no acute distress and patient oriented x3 HENMT: COMMON NORMALS: normocephalic and atraumatic HEAD & SCALP: normocephalic and atraumatic Eye: COMMON NORMALS: Equal, round and reactive pupils present and EOMs intact bilaterally PUPIL: Yes Equal, round and reactive pupils present Neck/C-Spine: COMMON NORMALS: no JVD Lymph: LYMPHATIC: no lymphadenopathy noted Resp: COMMON NORMALS: normal respiratory effort, No retractions, No use of accessory muscles and clear to auscultation bilaterally EFFORT & INSPECTION: Yes symmetric chest movement AUSCULTATION: clear to auscultation bilaterally Cardio: COMMON NORMALS: no JVD, regular rate, regular rhythm, S1 normal heart sound present, S2 normal heart sound present, No gallops present (Cardio), No murmurs present (Cardio), No rub (Cardio) and Peripheral pulses 2+ throughout RATE: regular rate RHYTHM: regular rhythm HEART SOUNDS: S1 normal heart sound present and S2 normal heart sound present PERIPHERAL PULSES: Peripheral pulses 2+ throughout GI: COMMON NORMALS: Normal to inspection, nondistended, normoactive bowel sounds present, Soft to palpation, non-tender, No hepatosplenomegaly present and no masses AUSCULTATION: Yes normoactive bowel sounds PALPATION: Yes Soft to palpation and Yes No hepatosplenomegaly present RECTAL EXAM: Yes deferred Extremity: COMMON NORMALS: no clubbing, cyanosis or edema and no pedal edema NARRATIVE EXTREMITY EXAM: Left lower extremity redness present, tenderness, Leg less edematous, rash less angry appearing, posterior iliac, darker skin with scab without any open wounds Neuro: COMMON NORMALS: patient oriented x3, CN's II-XII intact bilaterally and moves all extremities Psych: COMMON NORMALS: mental status grossly normal Discharge Data Studies Completed and Pending Completed Studies During Hospitalization Category Date Time Status CT lower leg LT wo con* [id number] Routine Cat Scan 06/06/22 11:[address] lower leg LT wo con* [id number] Stat Cat Scan 06/01/22 22:01 Completed US venous duplex lower extremity LT [CV venous duplex Ultrasound 06/01/22 20:17 [place] [id number]] Stat Radiology Impressions Venous Duplex 06/01/22 20:17 IMPRESSION: No evidence of deep vein thrombosis. Lower Extremity CT 06/06/22 11:45 IMPRESSION: 1. No evidence of drainable abscess or fluid collection. 2. Skin thickening with inflammatory stranding and edema in the subcutaneous soft tissues extending into the intramuscular soft tissues compatible with cellulitis. No drainable fluid collections. 3. Vascular calcification. 4. No other significant changes from previous. Laboratory Results WBC 11.4 10^3/uL (4.0-10.0) H 06/07/22 04:42 RBC 3.72 10^6/uL (4.1-5.3) L 06/07/22 04:42 Hgb 10.6 g/dL (11.7-16.6) L 06/07/22 04:42 Hct 32.5 % (42.0-52.0) L 06/07/22 04:42 MCV 87.4 fl (80-94) 06/07/22 04:42 MCH 28.5 pg (28.0-34.0) 06/07/22 04:42 MCHC 32.6 g/dL (30.0-36.0) 06/07/22 04:42 RDW 13.2 % (12.1-15.1) 06/07/22 04:42 Plt Count 249 10^3/cmm (130-400) 06/07/22 04:42 MPV 9.8 fL (7.4-10.4) 06/07/22 04:42 Neut % (Auto) 70.7 % 06/07/22 04:42 Lymph % (Auto) 18.2 % 06/07/22 04:42 [place] % (Auto) 6.4 % 06/07/22 04:42 Eos % (Auto) 3.2 % 06/07/22 04:42 Baso % (Auto) 0.5 % 06/07/22 04:42 Neut # (Auto) 8.07 10^3/uL (1.8-7.7) H 06/07/22 04:42 Lymph # (Auto) 2.1 10^3/uL (0.8-4.8) 06/07/22 04:42 [place] # (Auto) 0.7 10^3/uL (0.2-0.9) 06/07/22 04:42 Eos # (Auto) 0.4 10^3/uL (0.0-0.8) 06/07/22 04:42 Baso # (Auto) 0.1 10^3/uL (0.0-0.1) 06/07/22 04:42 Nucleated RBC % (auto) 0 % 06/07/22 04:42 Nucleated RBCs # 0.0 /100WBC 06/07/22 04:42 ESR 44 mm/hr (0-10) H 06/03/22 04:24 Sodium 139 mmol/L (136-145) 06/07/22 04:42 Potassium 4.1 mmol/L (3.5-5.1) 06/07/22 04:42 Chloride 104 mmol/L (98-107) 06/07/22 04:42 Carbon Dioxide 25 mmol/L (22-29) 06/07/22 04:42 Anion Gap 14.1 (5-19) 06/07/22 04:42 BUN 13 mg/dL (6-20) 06/07/22 04:42 Creatinine 0.9 mg/dL (0.7-1.2) 06/07/22 04:42 GFR Calculation 88.6 mL/min (90-130) L 06/07/22 04:42 Glucose 134 mg/dL (65-115) H 06/07/22 04:42 POC Glucose 194 mg/dL (70-110) H 06/09/22 10:59 Estimat Average Glucose 126 06/01/22 20:30 Hemoglobin A1c 6.0 % (4.0-6.0) 06/01/22 20:30 Calculated Osmolality 290 mOsm/kg (285-295) 06/07/22 04:42 Lactic Acid 1.7 mmol/L (0.5-2.2) 06/01/22 20:30 Calcium 8.3 mg/dL (8.5-10.5) L 06/07/22 04:42 Total Bilirubin 0.3 mg/dL (0.15-1.2) 06/07/22 04:42 AST 14 U/L (0-40) 06/07/22 04:42 ALT 23 U/L (0-41) 06/07/22 04:42 Alkaline Phosphatase 113 U/L (40-130) 06/07/22 04:42 Creatine Kinase 158 U/L (39-308) 06/01/22 20:30 C-Reactive Protein 111.9 mg/L (0.0-4.9) H 06/06/22 12:26 Total Protein 6.6 g/dL (6.6-8.7) 06/07/22 04:42 Albumin 3.0 g/dL (3.5-5.2) L 06/07/22 04:42 Globulin 3.6 g/dL (1.3-4.6) 06/07/22 04:42 Vancomycin Trough 16.2 ug/mL (10-15) H 06/08/22 01:05 Vitals Last Vital Signs Temp 97.6 F 06/09/22 08:00 Pulse 73 06/09/22 12:00 Resp 16 06/09/22 12:00 BP 148/83 06/09/22 12:00 Pulse Ox 94 06/09/22 12:00 O2 Del Method 06/09/22 12:00 FiO2 25 06/03/22 03:38 Discharge Plan Discharge Patient Disposition: Home Condition: Stable Prescriptions: New doxycycline hyclate 100 mg tablet 100 mg PO BID 7 Days Qty: 14 0RF valacyclovir [Valtrex] 1 gram tablet 1,000 mg PO Q8H 7 Days Qty: 21 0RF tobramycin 0.3 % Drops 1 drp eye-both BID 7 Days Qty: 3 0RF levofloxacin 500 mg tablet 500 mg PO Q24H 7 Days Qty: 7 0RF Continued (DME) CPAP and supplies See Rx Instructions .Route .MEDSUPPLY Qty: 1 0RF Rx Instructions: As directed (DME) [place] Boot to the Right See Rx Instructions .Route .MEDSUPPLY Qty: 1 0RF Rx Instructions: As directed by [employer] [place] spironolactone 50 mg tablet 50 mg PO DAILY Qty: 90 3RF nifedipine 30 mg tablet extended release 24 hr 30 mg PO TID 90 Days Qty: 270 2RF (DME) FreeStyle [place] 14 Day Sensor Kit See Rx Instructions .Route Qty: 1 6RF Rx Instructions: As directed (DME) FreeStyle [place] 14 Day [place] Misc See Rx Instructions .Route Qty: 1 0RF Rx Instructions: As directed clonidine HCl 0.2 mg tablet 0.2 mg PO BID 90 Days Qty: 180 0RF rosuvastatin 10 mg tablet See Rx Instructions .ROUTE .COMPLEX Qty: 90 0RF Dose Instruction: TAKE 1 TABLET BY MOUTH DAILY Rx Instructions: TAKE 1 TABLET BY MOUTH DAILY Ozempic 1 mg/dose (4 mg/3 mL) pen injector See Rx Instructions .ROUTE .COMPLEX Qty: 3 0RF Dose Instruction: INJECT 1MG(0.75ML) UNDER THE SKIN ONCE EVERY WEEK Rx Instructions: INJECT 1MG(0.75ML) UNDER THE SKIN ONCE EVERY WEEK ON FRIDAY aspirin [Adult Aspirin Regimen] 81 mg tablet,delayed release (DR/EC) 81 mg PO DAILY Qty: 30 3RF hydralazine 100 mg tablet 100 mg PO TID Rx Instructions: TAKE 1 TABLET BY MOUTH THREE TIMES DAILY Discharge Orders: Discharge Order (Routine); Ordered 06/09/22 Ordered By: Yasir Esquivel Referrals: Landy Bella FNP [Primary Care Provider] - 7-10 days Discharge Diet: Cardiac and Diabetic Discharge Activity: Resume usual activity and Increase activity as tolerated Patient Instructions: Opioid Safety, Pain Management Activity Restrictions/Additional Instructions: Please continue with your antidiabetic medications as before. You will be on 2 antibiotics including doxycycline and Levaquin for next 7 days. Please keep your leg elevated as much as possible. You will be on Valtrex which is the antiviral 1 g 3 times a day for next 7 days. Discharge Attestations Time Spent in Discharge Care*: greater than 30 min Specific Discharge Activities: educating patient, discussing with pcp/other providers, discussing with ed case manager/social workers/dc planners, documenting/other paperwork and evaluating patient/reviewing data Status at Discharge: Cognitive status at discharge: cognitively intact , Behavioral status at discharge: cooperative , Functional status at discharge: independent ambulation , Overall status at discharge: patient is progressing back to baseline Quality Metrics Clinical Quality Measures [ No reported AMI, CVA or VTE this stay] Coding Level of Care Code Acute g FW DC note Diagnoses Cellulitis of left leg without foot L03.116 Acute kidney injury N17.9 Herpes zoster conjunctivitis of right eye B02.31 Charcot's joint of right foot M14.671 Essential hypertension I10 T2DM (type 2 diabetes mellitus) E11.9 Sleep apnea G47.30 Sleep apnea type: unspecified type Goals of care, counseling/discussion Z71.89 SAMANTHA on CPAP G47.33; Z99.89 CKD (chronic kidney disease) N18.9
== END 2022-06-09 14:24 | disposition home or self-care (01) | DRG 603 ==
LOC: ER 21:55 → MEDSURG 23:04
PROVIDERS: Internal Medicine; Admitting Provider Family Medicine; Emergency Provider Physician Assistant; PCP Registered Nurse; Visit Provider Student in an Organized Health Care Education/Training Program
DX: L03.116 Cellulitis of left lower limb (principal); N17.9 Acute kidney failure, unspecified; B02.31 Zoster conjunctivitis; E11.65 Type 2 diabetes mellitus with hyperglycemia; E11.42 Type 2 diabetes mellitus with diabetic polyneuropathy; E11.610 Type 2 diabetes mellitus with diabetic neuropathic arthropathy; E11.22 Type 2 diabetes mellitus with diabetic chronic kidney disease; I12.9 Hypertensive chronic kidney disease with stage 1 through stage 4 chronic kidney disease, or unspecified chronic kidney disease; N18.30 Chronic kidney disease, stage 3 unspecified; G47.33 Obstructive sleep apnea (adult) (pediatric); Z99.89 Dependence on other enabling machines and devices; E78.5 Hyperlipidemia, unspecified; Z79.82 Long term (current) use of aspirin; D63.1 Anemia in chronic kidney disease; Z86.73 Personal history of transient ischemic attack (TIA), and cerebral infarction without residual deficits; E66.9 Obesity, unspecified; Z68.38 Body mass index [BMI] 38.0-38.9, adult
CPT/HCPCS: 36415; 36416; 73700; 80048; 80053; 80202; 82550; 82962; 83036; 83605; 85025; 85651; 86140; 87040; 87641; 93971; 94660; 94664; 96365; 96367; 96372; 99285; C9113; J0133; J0690; J0692; J1650; J1815; J2185; J3370; J7030

== ENCOUNTER → 2022-06-14 07:53 | Outpatient (BNVA) | payer OTHER, SELFPAY | PROVIDERS: PCP Registered Nurse; Visit Provider Podiatrist Foot & Ankle Surgery | DX: L03.116 Cellulitis of left lower limb (principal) | CPT/HCPCS: 80053; 85025; 85651; 86140 ==

== ENCOUNTER → 2022-07-09 12:31 | Outpatient (BNVA) | payer OTHER, SELFPAY | PROVIDERS: PCP Registered Nurse; Visit Provider Podiatrist Foot & Ankle Surgery | DX: M14.671 Charcot's joint, right ankle and foot (principal); L03.116 Cellulitis of left lower limb; E11.621 Type 2 diabetes mellitus with foot ulcer; L97.221 Non-pressure chronic ulcer of left calf limited to breakdown of skin; M86.671 Other chronic osteomyelitis, right ankle and foot; E11.21 Type 2 diabetes mellitus with diabetic nephropathy | CPT/HCPCS: 73630 ==

== ENCOUNTER → 2022-11-05 10:36 | Outpatient (BNVA) | payer OTHER, SELFPAY | PROVIDERS: PCP Registered Nurse; Visit Provider Podiatrist Foot & Ankle Surgery | DX: M14.671 Charcot's joint, right ankle and foot (principal); M86.671 Other chronic osteomyelitis, right ankle and foot; E11.21 Type 2 diabetes mellitus with diabetic nephropathy | CPT/HCPCS: 73630 ==

== ENCOUNTER → 2023-01-21 11:14 | Outpatient (BNVA) | payer OTHER, SELFPAY | PROVIDERS: PCP Registered Nurse; Visit Provider Podiatrist Foot & Ankle Surgery | DX: E11.21 Type 2 diabetes mellitus with diabetic nephropathy (principal); M14.671 Charcot's joint, right ankle and foot; M86.671 Other chronic osteomyelitis, right ankle and foot | CPT/HCPCS: 73630 ==

== ENCOUNTER → 2023-03-27 16:18 | Outpatient (BNVA) | payer OTHER, SELFPAY | PROVIDERS: PCP Registered Nurse; Visit Provider Registered Nurse | DX: E11.9 Type 2 diabetes mellitus without complications (principal); G47.33 Obstructive sleep apnea (adult) (pediatric); Z99.89 Dependence on other enabling machines and devices; I10 Essential (primary) hypertension; E78.5 Hyperlipidemia, unspecified | CPT/HCPCS: 80053; 80061; 83036; 85025 ==

== ENCOUNTER → 2023-06-04 14:48 | Outpatient (BNVA) | payer MEDICARE, MEDICAID, SELFPAY | PROVIDERS: PCP Registered Nurse; Visit Provider Podiatrist Foot & Ankle Surgery | DX: M86.671 Other chronic osteomyelitis, right ankle and foot (principal); M14.671 Charcot's joint, right ankle and foot; L97.522 Non-pressure chronic ulcer of other part of left foot with fat layer exposed; E11.621 Type 2 diabetes mellitus with foot ulcer | CPT/HCPCS: 99213 ==

== ENCOUNTER 2023-06-14 19:03 | Emergency (ER) | payer MEDICARE, MEDICAID, SELFPAY ==
[2023-06-14 19:09] VITALS: BP 173/97; PULSE 84; RESP 18; TEMP 37.4; O2SAT 96; BMI 38.0
--- NOTE | 2023-06-14 20:21 | XRR_ITS ---
PROCEDURE INFORMATION: Exam: XR Cervical Spine Exam date and time: 06/14/2023 8:25 PM Age: 52 years old Clinical indication: Patient HX: C/O neck pain with radiation down RT upper extremity. TECHNIQUE: Imaging protocol: Radiologic exam of the cervical spine. Views: 2 or 3 views. COMPARISON: CR XR chest 1V portable [id number] 12/12/2021 3:54 PM FINDINGS: Bones/joints: Straightened cervical curvature due to positioning or muscle spasm. No vertebral height loss or significant disc space narrowing. No significant facet arthropathy. Soft tissues: Unremarkable. XR/XR cervical spine 3V* [id number] IMPRESSION: Straightened cervical curvature due to positioning or muscle spasm. Otherwise no significant plain radiographic abnormality in the cervical spine.
[2023-06-14 20:35] VITALS: RESP 20
[2023-06-14] MEDS: oxyCODONE-APAP 5-325 mg Tablet 2 TAB PO (20:35)
[2023-06-14] MEDS: orphenadrine 30 mg/mL Inj 2 mL 60 MG IM (20:35)
[2023-06-14] MEDS: ketorolac 60 mg/2 mL INJ IM (20:35)
[2023-06-14] MEDS: dexamethasone 4 mg Tablet 10 MG PO (21:04)
[2023-06-14 21:08] VITALS: BP 133/76; PULSE 61; O2SAT 97
[2023-06-14] MEDS: oxyCODONE-APAP 5-325 mg Tablet 1 TAB PO (21:16)
--- NOTE | 2023-06-14 21:54 | ED_ITS ---
HPI - Extremity Problem General: Chief complaint: Extremity Injury, Upper Stated complaint: right shoulder pain Time Seen by Provider: 06/14/23 19:23 History of Present Illness: 52-year-old male with lower neck, right shoulder, and right arm pain radiating to the elbow. He also complains of diarrhea, vomiting, and chills today. He states that his neck and shoulder been hurting since this past Friday. He has visited the chiropractor twice for the same pain, with transient improvement after neck manipulation. He notes that he was improved yesterday transiently following chiropractic manipulation, but awoke in pain again today. He says the pain radiates from the base of the neck through the shoulder blade and into the right arm down to the elbow. No weakness. No upper extremity swelling. No chest discomfort or shortness of breath. Associated symptoms: Reports fever(s); Deny chest pain or rash Review of Systems Const: Reports: fever(s), chills and body aches Eyes: Denies: change in vision ENMT: Denies: throat pain Card: Denies: chest pain or palpitations Resp: Reports: non-productive cough; Denies: dyspnea or productive cough GI: Reports: nausea, vomiting and diarrhea; Denies: abdominal pain : Denies: flank pain or difficulty urinating Musc: Reports: neck pain; Denies: back pain Skin/Breast: Denies: rash Neuro: Denies: headache(s) [facility] ED PFSH: Medical History CKD (chronic kidney disease) Uncontrolled diabetes mellitus Foot abscess S/P angiogram of extremity T2DM (type 2 diabetes mellitus) Essential hypertension Septicemia Staphylococcal sepsis Acute ischemic multifocal multiple vascular territories stroke Embolic stroke Diabetic peripheral neuropathy associated with type 2 diabetes mellitus Acute kidney injury Oliguria Gram-positive bacteremia Tachycardia with hypertension Accelerated hypertension Cellulitis of foot, right Sepsis Chronic osteomyelitis of right foot Anemia Acute conjunctivitis, right eye Saphenous vein clot Diabetes mellitus with polyneuropathy Cellulitis Osteomyelitis of toe of right foot Post-acute COVID-19 syndrome Neuropathy Obesity (BMI 30-39.9) BPH (benign prostatic hyperplasia) Respiratory failure with hypoxia Dyslipidemia Edema Resistant hypertension CPAP (continuous positive airway pressure) dependence Sleep apnea Diabetes Family History Other CAD (coronary artery disease) Hypertension Social History Smoking and tobacco/nicotine status: never used tobacco/nicotine Physical Exam Const: COMMON NORMALS: no acute distress and alert GENERAL APPEARANCE: cooperative; not ill appearing HENMT: COMMON NORMALS: normocephalic, atraumatic and Normal external nose present HEAD & SCALP: normocephalic and atraumatic FACE & SINUS: normal facial exam and face symmetric NOSE: Normal external nose present and Normal nares present Eye: COMMON NORMALS: Equal, round and reactive pupils present and EOMs intact bilaterally PUPIL: Yes Equal, round and reactive pupils present Neck/C-Spine: GENERAL: Yes trachea midline and No anterior neck swelling CERVICAL SPINE: Yes pain with cervical ROM, Yes Cervical spine tenderness C7 and T1 and No step off deformity Chest: CHEST: Yes Symmetrical chest wall rise Resp: COMMON NORMALS: normal respiratory effort and No use of accessory muscles Cardio: COMMON NORMALS: regular rate and regular rhythm RATE: regular rate RHYTHM: regular rhythm Extremity: COMMON NORMALS: normal to inspection and capillary refill normal NARRATIVE EXTREMITY EXAM: no upper extremity edema Neuro: PREMA COMA SCALE: document GCS findings [place] coma scale eye opening: Spontaneous [place] coma scale verbal response: Orientated Prema coma scale motor response: Obey commands [place] coma scale total score: 15 SENSORIUM/ORIENTATION: Yes alert COORDINATION/BALANCE: [id number] test normal MOTOR EXAM: Normal motor muscle tone present throughout COORDINATION: [id number] test normal Psych: COMMON NORMALS: mental status grossly normal Skin: COMMON NORMALS: no rashes or lesions noted GENERAL SKIN EXAM: no rashes or lesions noted Course Vital Signs: Vital signs: Vital Signs Temperature 99.3 F 06/14/23 19:09 Pulse Rate 61 06/14/23 21:08 Respiratory Rate 20 H 06/14/23 20:35 Blood Pressure 133/76 06/14/23 21:08 Pulse Oximetry 97 06/14/23 21:08 Oxygen Delivery Me thod Room Air 06/14/23 21:08 MDM - Extremity (Nontraumatic) Medical Decision Making Cervical spine x-ray shows straightening. Exam consistent with cervical radiculopathy. Will treat accordingly. Pain medication, steroids for radicular pain, etc. He is improved after treatment here. Lab Data Radiology Impressions Cervical Spine X-Ray 06/14/23 20:21 IMPRESSION: Straightened cervical curvature due to positioning or muscle spasm. Otherwise no significant plain radiographic abnormality in the cervical spine. Laboratory Results Adenovirus (PCR) Not detected (NOT DETECT) 06/14/23 21:03 C. pneumoniae DNA (PCR) Not detected (NOT DETECT) 06/14/23 21:03 Coronavirus 229E (PCR) Not detected (NOT DETECT) 06/14/23 21:03 Human Metapneumovir PCR Not detected (NOT DETECT) 06/14/23 21:03 Influenza A (H1) PCR Not detected (NOT DETECT) 06/14/23 21:03 Influ A (H1/09) PCR Not detected (NOT DETECT) 06/14/23 21:03 Influenza A (H3) PCR Not detected (NOT DETECT) 06/14/23 21:03 Influenza Type A (PCR) Not detected (NOT DETECT) 06/14/23 21:03 Influenza Type B (PCR) Not detected (NOT DETECT) 06/14/23 21:03 M. pneumoniae (PCR) Not detected (NOT DETECT) 06/14/23 21:03 Parainfluenza 1 (PCR) Not detected (NOT DETECT) 06/14/23 21:03 Parainfluenza 2 (PCR) Not detected (NOT DETECT) 06/14/23 21:03 Parainfluenza 3 (PCR) Not detected (NOT DETECT) 06/14/23 21:03 Parainfluenza 4 (PCR) Not detected (NOT DETECT) 06/14/23 21:03 RSV Type A (PCR) Not detected (NOT DETECT) 06/14/23 21:03 RSV Type B (PCR) Not detected (NOT DETECT) 06/14/23 21:03 Entero/Rhino (PCR) Not detected (NOT DETECT) 06/14/23 21:03 SARS-CoV-2 (PCR) Not detected (NOT DETECT) 06/14/23 21:03 All radiology interpretation(s) finalized by discharge Discharge Plan Discharge Patient Disposition: Home Clinical Impression: Cervical radiculitis Condition: Stable Prescriptions: New Percocet 7.5-325 mg tablet 1 tab PO Q6H PRN (Reason: pain) Qty: 10 0RF Medrol (Rafael) 4 mg tablets,dose pack See Rx Instructions .ROUTE .COMPLEX Qty: 21 0RF Rx Instructions: orally per package directions No Action (DME) CPAP and supplies See Rx Instructions .Route .MEDSUPPLY Qty: 1 0RF Rx Instructions: As directed valacyclovir 1 gram tablet PO tobramycin 0.3 % drops 1 drp ophthalmic (eye) ([facility]) [place] Boot to the Right See Rx Instructions .Route .MEDSUPPLY Qty: 1 0RF Rx Instructions: As directed by [employer] [place] ([facility]) [employer] [place] 14 Day Sensor Kit See Rx Instructions .Route Qty: 1 6RF Rx Instructions: As directed ([facility] [place]) [employer] [place] 14 Day [place] Misc See Rx Instructions .Route Qty: 1 0RF Rx Instructions: As directed hydralazine 100 mg tablet See Rx Instructions .ROUTE .COMPLEX Qty: 270 0RF Dose Instruction: TAKE 1 TABLET BY MOUTH THREE TIMES DAILY Rx Instructions: TAKE 1 TABLET BY MOUTH THREE TIMES DAILY nifedipine 30 mg tablet extended release 24hr See Rx Instructions .ROUTE .COMPLEX Qty: 270 0RF Dose Instruction: TAKE 1 TABLET BY MOUTH THREE TIMES DAILY Rx Instructions: TAKE 1 TABLET BY MOUTH THREE TIMES DAILY rosuvastatin 10 mg tablet See Rx Instructions .ROUTE .COMPLEX Qty: 90 0RF Dose Instruction: TAKE 1 TABLET BY MOUTH DAILY Rx Instructions: TAKE 1 TABLET BY MOUTH DAILY spironolactone 50 mg tablet See Rx Instructions .ROUTE .COMPLEX Qty: 90 0RF Dose Instruction: TAKE 1 TABLET BY MOUTH DAILY Rx Instructions: TAKE 1 TABLET BY MOUTH DAILY Ozempic 1 mg/dose (4 mg/3 mL) pen injector See Rx Instructions .ROUTE .COMPLEX Qty: 3 1RF Dose Instruction: inject 1mg SUBCUTANEOUSLY ONCE WEEKLY ON FRIDAY Rx Instructions: inject 1mg SUBCUTANEOUSLY ONCE WEEKLY ON FRIDAY clonidine HCl 0.2 mg tablet See Rx Instructions .ROUTE .COMPLEX Qty: 180 0RF Dose Instruction: TAKE 1 TABLET BY MOUTH TWICE DAILY Rx Instructions: TAKE 1 TABLET BY MOUTH TWICE DAILY aspirin [Adult Aspirin Regimen] 81 mg tablet,delayed release (DR/EC) 81 mg PO DAILY Qty: 30 3RF Discharge Orders: Discharge ED (Routine); Ordered 06/14/23 Ordered By: Eric Alarcon Referrals: Landy Bella, SCRAP SORTER [Primary Care Provider] - Patient Instructions: Cervical Radiculopathy (ED), Opioid Safety, Pain Management Activity Restrictions/Additional Instructions: Your virus panel will take 3 to 4 hours to come back. You may call in the morning to get the results. In the meantime, take medication as directed for your neck. Return for continued fever, worsening pain despite treatment, swelling of the right upper extremity, chest discomfort or shortness of breath, any other concerning symptoms. Coding Level of Care Code ED [employer] Field Supervisor for Priscilla Jones
[2023-06-14 22:56] LABS: Adenovirus Not Detected (NOT DETECT); Chlamydia Pneumoniae Not Detected (NOT DETECT); Coronavirus 229E,HKU1,NL63,OC4 Not Detected (NOT DETECT); Human Metapneumovirus Not Detected (NOT DETECT); Human Rhinovirus/Enterovirus Not Detected (NOT DETECT); Influenza A Not Detected (NOT DETECT); Influenza A H1 Not Detected (NOT DETECT); Influenza A H1-2009 Not Detected (NOT DETECT); Influenza A H3 Not Detected (NOT DETECT); Influenza B Not Detected (NOT DETECT); Mycoplasma Pneumoniae Not Detected (NOT DETECT); Parainfluenza Virus Type 1 Not Detected (NOT DETECT); Parainfluenza Virus Type 2 Not Detected (NOT DETECT); Parainfluenza Virus Type 3 Not Detected (NOT DETECT); Parainfluenza Virus Type 4 Not Detected (NOT DETECT); Respiratory Syncytial Virus A Not Detected (NOT DETECT); Respiratory Syncytial Virus B Not Detected (NOT DETECT); SARS-COV-2 Not Detected (NOT DETECT)
== END 2023-06-14 21:19 | disposition home or self-care (01) ==
PROVIDERS: Emergency Provider Emergency Medicine; PCP Registered Nurse
DX: M54.12 Radiculopathy, cervical region (principal); Z79.82 Long term (current) use of aspirin; Z79.85 Long-term (current) use of injectable non-insulin antidiabetic drugs; Z11.52 Encounter for screening for COVID-19; E11.22 Type 2 diabetes mellitus with diabetic chronic kidney disease; I12.9 Hypertensive chronic kidney disease with stage 1 through stage 4 chronic kidney disease, or unspecified chronic kidney disease; N18.9 Chronic kidney disease, unspecified; Z86.73 Personal history of transient ischemic attack (TIA), and cerebral infarction without residual deficits; E78.5 Hyperlipidemia, unspecified
CPT/HCPCS: 72040; 87486; 87581; 87633; 96372; 99284; J1885; J2360; J8540

== ENCOUNTER 2023-06-16 11:06 | Emergency (ER) | payer MEDICARE, MEDICAID, SELFPAY ==
--- NOTE | 2023-06-16 11:16 | ECG_ITS ---
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 Measurements Intervals [place] Rate: 69 P: 13 AK: 165 QRS: -23 QRSD: 107 T: 24 QT: 372 QTc: 399 Interpretive Statements SINUS RHYTHM BORDERLINE LEFT AXIS DEVIATION [QRS AXIS < -20] MODERATE VOLTAGE CRITERIA FOR LVH, CONSIDER NORMAL VARIANT [MEETS CRITERIA IN ONE OF: R(aVL), S(V1), R(V5), R(V5/V6)+S(V1)] Compared to ECG 12/04/2021 23:16:58 T-wave abnormality no longer present Electronically Signed On 06-16-2023 14:53:23 STAFF SERVICES MANAGER by Sami Ramirez M.D. [email or web address]
[2023-06-16 12:23] VITALS: BP 175/85; PULSE 70; RESP 16; TEMP 38.1; O2SAT 97; BMI 38.0
--- NOTE | 2023-06-16 12:58 | ED_ITS ---
HPI - Neck Pain/Injury General: Chief Complaint: Neck Pain/Injury Stated Complaint: pain both arms Time Seen by Provider: 06/16/23 12:34 Source: patient Mode of arrival: ambulatory History of Present Illness: 52-year-old male presents with complaint s of neck pain w R arm radiculopathy. He was seen yesterday went to see his primary care doctor today and was referred to the emergency room and a prescription medications Dr. Alarcon prescribed for him. No injury that he can recall to the neck no previous surgery.. Discomfort radiating across shoulder and down the right arm. His sensation in the right hand versus the left slightly diminished in C8 dermatome. MD complaint: neck pain Onset (ago): day(s) Severity: severe Quality: burning and sharp Duration: constant and progressively worsening Relieving factors: none Exacerbating factors: none Associated symptoms: Denies dysphagia, difficulty walking, dizziness, fevers/chills, headache(s), nausea, swollen glands, tingling or weakness Treatments prior to arrival: acetaminophen and ibuprofen Review of Systems Const: Denies: fever(s) or chills Card: Denies: chest pain Resp: Denies: dyspnea GI: Denies: abdominal pain, nausea or dysphagia : Denies: dysuria, urinary frequency or urinary urgency Musc: Reports: neck pain and extremity pain; Denies: back pain Skin/Breast: Denies: rash Neuro: Denies: headache(s), difficulty walking or dizziness PFS ED PFSH: Medical History CKD (chronic kidney disease) Uncontrolled diabetes mellitus Foot abscess S/P angiogram of extremity T2DM (type 2 diabetes mellitus) Essential hypertension Septicemia Staphylococcal sepsis Acute ischemic multifocal multiple vascular territories stroke Embolic stroke Diabetic peripheral neuropathy associated with type 2 diabetes mellitus Acute kidney injury Oliguria Gram-positive bacteremia Tachycardia with hypertension Accelerated hypertension Cellulitis of foot, right Sepsis Chronic osteomyelitis of right foot Anemia Acute conjunctivitis, right eye Saphenous vein clot Diabetes mellitus with polyneuropathy Cellulitis Osteomyelitis of toe of right foot Post-acute COVID-19 syndrome Neuropathy Obesity (BMI 30-39.9) BPH (benign prostatic hyperplasia) Respiratory failure with hypoxia Dyslipidemia Edema Resistant hypertension CPAP (continuous positive airway pressure) dependence Sleep apnea Diabetes Family History Other CAD (coronary artery disease) Hypertension Social History Smoking and tobacco/nicotine status: never used tobacco/nicotine Physical Exam Const: GENERAL APPEARANCE: cooperative and comfortable ORIENTATION /CONSCIOUSNESS: Yes awake, Yes oriented to person, Yes oriented to place and Yes oriented to time HENMT: COMMON NORMALS: normocephalic, atraumatic and hearing grossly normal bilaterally HEAD & SCALP: normocephalic and atraumatic Resp: COMMON NORMALS: normal respiratory effort, No retractions, No use of accessory muscles and clear to auscultation bilaterally AUSCULTATION: clear to auscultation bilaterally Cardio: COMMON NORMALS: regular rate, regular rhythm and No murmurs present (Cardio) RATE: regular rate RHYTHM: regular rhythm GI: COMMON NORMALS: Soft to palpation and No hepatosplenomegaly present AUSCULTATION: Yes normoactive bowel sounds PALPATION: Yes Soft to palpation, No Tenderness to palpation present (GI), No Guarding due to palpation present (GI) and Yes No hepatosplenomegaly present Extremity: COMMON NORMALS: normal to inspection, capillary refill normal, no clubbing, cyanosis or edema, no calf tenderness and no pedal edema Neuro: SENSORIUM/ORIENTATION: Yes oriented to person, Yes oriented to place and Yes oriented to time Skin: COMMON NORMALS: no rashes or lesions noted GENERAL SKIN EXAM: no rashes or lesions noted Course Vital Signs: Vital signs: Vital Signs Temperature 100.6 F H 06/16/23 12:23 Pulse Rate 70 06/16/23 12:23 Respiratory Rate 18 06/16/23 14:22 Blood Pressure 175/85 06/16/23 12:23 Pulse Oximetry 96 06/16/23 14:22 Oxygen Delivery Me thod Room Air 06/16/23 12:23 MDM - Neck Pain/Injury Medical Decision Making Neck pain improved with medications given will discharge home he has Percocet discharged home on strong higher dose prednisone taper as well as tizanidine to use as needed will set up for outpatient MRI and follow-up with orthopedic spine surgery Medical Records I reviewed the patient's medical records. Lab Data I reviewed the patient's lab results. Radiology Impressions Cervical Spine CT 06/16/23 13:08 IMPRESSION: Mild degenerative changes without acute findings. All radiology interpretation(s) finalized by discharge Discharge Plan Discharge Patient Disposition: Home Clinical Impression: Cervical radiculitis Condition: Stable Prescriptions: New tizanidine 4 mg tablet 4 mg PO Q6H PRN (Reason: muscle spasticity) Qty: 20 0RF Rx Instructions: do not exceed 3 doses per 24 hrs prednisone 20 mg tablet 20 mg PO TID Qty: 15 0RF Rx Instructions: 1 p.o. 3 times daily x3 days, 1 p.o. twice daily x2 days, 1 p.o. daily x2 days No Action (DME) CPAP and supplies See Rx Instructions .Route .MEDSUPPLY Qty: 1 0RF Rx Instructions: As directed ([facility]) [place] [employer] [place] Boot to the Right See Rx Instructions .Route .MEDSUPPLY Qty: 1 0RF Rx Instructions: As directed by [employer] ([facility]) [employer] Katherine 14 Day Sensor Kit See Rx Instructions .Route Qty: 1 6RF Rx Instructions: As directed ([facility]) [employer] [place] 14 Day [place] Misc See Rx Instructions .Route Qty: 1 0RF Rx Instructions: As directed oxycodone-acetaminophen [Percocet] 7.5-325 mg tablet 1 tab PO Q6H PRN (Reason: pain) Qty: 10 0RF methylprednisolone [Medrol (Rafael)] 4 mg tablets,dose pack See Rx Instructions .ROUTE .COMPLEX Qty: 21 0RF Rx Instructions: orally per package directions nifedipine 30 mg tablet extended release 24hr 30 mg PO TID Adult Aspirin Regimen 81 mg tablet,delayed release (DR/EC) 81 mg PO QAM clonidine HCl 0.2 mg tablet 0.2 mg PO BID hydralazine 100 mg tablet 100 mg PO TID spironolactone 50 mg tablet 50 mg PO QAM rosuvastatin 10 mg tablet 10 mg PO QAM Ozempic 1 mg/dose (4 mg/3 mL) pen injector 1 mg SUBCUT Q7D Rx Instructions: ON FRIDAY Discharge Orders: Discharge ED (Routine); Ordered 06/16/23 Ordered By: Homero Ponce Referrals: Landy Bella, SOCK KNITTER [Primary Care Provider] - Discharge Diet: Usual diet Discharge Activity: Increase activity as tolerated Patient Instructions: Opioid Safety, Pain Management Activity Restrictions/Additional Instructions: [facility]. Ple ase realize this is an emergency room and that we are providing you with a medical screening exam and this may not be complete and all inclusive of all the testing and or work up that you may need to determine your ailment or severity of your illness. It is very important that you follow up as instructed or that you return to the Emergency Department should you have concerns or if your condition changes or worsens in any way. manager state will make arrangements for you to follow-up with orthopedic spine surgery. Coding Level of Care Code ED Garment Examiner for Priscilla Jones
--- NOTE | 2023-06-16 13:08 | CTR_ITS ---
PROCEDURE INFORMATION: Exam: CT Cervical Spine Without Contrast Exam date and time: 06/16/2023 1:13 PM Age: 52 years old Clinical indication: Neck pain; Additional info: Neck pain R arm radiculopathy TECHNIQUE: Imaging protocol: Computed tomography of the cervical spine without contrast. Radiation optimization: All CT scans at this facility use at least one of these dose optimization techniques: automated exposure control; mA and/or kV adjustment per patient size (includes targeted exams where dose is matched to clinical indication); or iterative reconstruction. COMPARISON: CR (NECK, ) 06/14/2023 8:25 PM RADIATION DOSE METRICS: Total DLP (mGy-cm): 344 FINDINGS: Bones/joints: Mild diffusely sclerotic appearance of the bones, nonspecific. Overall mild multilevel degenerative changes. Alignment is maintained. No severe canal stenosis. Soft tissues: No acute findings. CT/CT cervical spin wo con* [id number] IMPRESSION: Mild degenerative changes without acute findings.
[2023-06-16] MEDS: dexamethasone 10 mg/mL INJ IM (14:21)
[2023-06-16 14:22] VITALS: RESP 18; O2SAT 96
[2023-06-16] MEDS: morphine 4 mg/mL SDV 1 mL IM (14:22)
[2023-06-16] MEDS: ketorolac 30 mg/mL INJ IM (14:22)
[2023-06-16] MEDS: orphenadrine 30 mg/mL Inj 2 mL 60 MG IM (14:22)
[2023-06-16] MEDS: ondansetron 2 mg/ML SDV 2 mL 4 MG IM (14:23)
== END 2023-06-16 15:47 | disposition home or self-care (01) ==
PROVIDERS: Emergency Provider Family Medicine; PCP Registered Nurse
DX: M54.12 Radiculopathy, cervical region (principal); Z79.82 Long term (current) use of aspirin; E11.22 Type 2 diabetes mellitus with diabetic chronic kidney disease; I12.9 Hypertensive chronic kidney disease with stage 1 through stage 4 chronic kidney disease, or unspecified chronic kidney disease; N18.9 Chronic kidney disease, unspecified; I1A.0 Resistant hypertension; Z86.73 Personal history of transient ischemic attack (TIA), and cerebral infarction without residual deficits; E78.5 Hyperlipidemia, unspecified
CPT/HCPCS: 72125; 93005; 96372; 99284; J1100; J1885; J2270; J2360; J2405

== ENCOUNTER → 2023-06-17 11:00 | Outpatient (BNVA) | payer MEDICARE, MEDICAID, SELFPAY | PROVIDERS: PCP Registered Nurse; Visit Provider Registered Nurse | DX: E11.9 Type 2 diabetes mellitus without complications (principal) | CPT/HCPCS: 80053; 83036; 85025; 85651; 86140 ==

== ENCOUNTER 2023-06-18 14:15 | Outpatient (CLI) | payer MEDICARE, MEDICAID, SELFPAY ==
--- NOTE | 2023-06-18 14:20 | MR_ITS ---
WS: [id number] MRI CERVICAL SPINE NONCONTRAST HISTORY: M79.2 - Neuralgia and neuritis, unspecified COMPARISON: Prior cervical spine CT 06/16/2023 Technique: Multiplanar, multisequence noncontrast imaging of the cervical spine. Straightening of the normal cervical lordosis. Motion artifact on numerous sequences. Although limited signal within the cord appears appropriate. Some subtle areas of edema would easily be obscured. Normal craniocervical junction. There is significant abnormality within the soft tissues of the cervical and upper thoracic spine. Th ere is extensive soft tissue edema extending along the interspinous ligaments and the muscle surround ing the mid to lower cervical spine into the thoracic spine. Greater involvement on the RIGHT. There is also some edema within the T2 vertebral body and the articular facet on the LEFT. Increased signal adjacent to the thoracic cord in the epidural space at T1 to on the RIGHT. The quali ty of this examination is suboptimal but a small epidural abscess is not excluded. There is slight ma ss effect upon the RIGHT epidural space. Increased T2 signal in the prevertebral fat. C2-C3: LEFT foraminal stenosis. C3-C4: Mild foraminal stenosis. C4-C5: Central disc protrusion and mild foraminal stenosis. C5-C6: By paracentral disc protrusions and small osteophytes. Mild foraminal and central stenosis. C6-C7: Bilateral foraminal stenosis. C7-T1: Normal. T2-3: Moderate size central disc protrusion contacting the ventral cord. IMPRESSION: 1. Study is compromised by motion artifact. 2. Significant abnormal appearance of the soft tissues around the mid to lower cervical spine into t he thoracic spine with soft tissue edema and marrow edema. 3. Increased signal in the epidural space on the RIGHT at C7-T1 is highly suspicious for an abscess with mass effect upon the cord. 4. Additional prevertebral edema suspicious for retropharyngeal abscess or phlegmon. 5. Moderate central disc protrusion at T2-3. Marrow edema T2 involving the RIGHT transverse process and pedicle suspicious for osteomyelitis. MR/MR cervical spin wo con* [id number] Recommendation: Additional imaging is necessary. MRI cervical spine with contra st. MRI thoracic spine with and without contrast. Patient will need to remain still for further evaluation for optimal diagnosis. Notified nurse Yenni at the office, at 06/18/2023 4:22 PM.
== END 2023-06-18 14:16 | disposition home or self-care (01) ==
LOC: RAD 14:15
PROVIDERS: PCP Registered Nurse; Visit Provider Registered Nurse
DX: M79.2 Neuralgia and neuritis, unspecified (principal); M25.78 Osteophyte, vertebrae; M48.02 Spinal stenosis, cervical region
CPT/HCPCS: 72141

== ENCOUNTER 2023-07-07 11:29 | Outpatient (CLI) | payer MEDICARE, OTHER, MEDICAID, SELFPAY ==
[2023-07-07 11:56] LABS: Basophils # 0.1 10^3/uL (0.0-0.1); Basophils % 0.9 %; Eosinophils # 0.6 10^3/uL (0.0-0.8); Eosinophils % 5.3 %; Hematocrit 36.8 % (37-53); Lymphocytes # 2.3 10^3/uL (0.8-4.8); Lymphocytes % 21.1 %; Mean Corpuscular HGB Conc 32.3 g/dL (30-55); Mean Corpuscular Hemoglobin 28.5 pg (27-33); Mean Platelet Volume 9.6 fL (7.4-10.4); Monocytes # 0.6 10^3/uL (0.2-0.9); Monocytes % 5.2 %; Neutrophils # 7.15 10^3/uL (1.8-7.7); Neutrophils % 67.1 %; Nucleated Red Blood Cells % 0 %; Platelet Count 313 10^3/cmm (157-399); Red Blood Count 4.18 10^6/uL (3.85-5.65); Red Cell Distribution Width 14.3 % (12.1-15.1); White Blood Count 10.66 10^3/uL (3.29-11.43)
[2023-07-07 12:26] LABS: Alanine Aminotransferase 13 U/L (0-41); Albumin Level 3.6 g/dL (3.5-5.2); Alkaline Phosphatase 151 U/L (40-130); Anion Gap 19.4 (5-19); Aspartate Amino Transferase 12 U/L (0-40); Blood Urea Nitrogen 21 mg/dL (6-20); Calcium 9.4 mg/dL (8.5-10.5); Carbon Dioxide 23 mmol/L (22-29); Chloride 101 mmol/L (98-107); Globulin 4.8 g/dL (1.3-4.6); Glomerular Filtration Rate 57.7 mL/min (90-130); Glucose 200 mg/dL (65-115); Osmolality Calculated 297 mOsm/kg (285-295); Potassium 4.4 mmol/L (3.5-5.1); Sodium 139 mmol/L (136-145); Total Bilirubin 0.3 mg/dL (0.15-1.2); Total Protein 8.4 g/dL (6.6-8.7)
== END 2023-07-07 11:30 | disposition home or self-care (01) ==
LOC: LAB 11:33
PROVIDERS: Visit Provider Internal Medicine
DX: Z01.89 Encounter for other specified special examinations (principal); Z79.2 Long term (current) use of antibiotics
CPT/HCPCS: 80053; 85025; 86140

== ENCOUNTER → 2023-07-08 14:11 | Outpatient (BNVA) | payer MEDICARE, OTHER, MEDICAID, SELFPAY | PROVIDERS: PCP Registered Nurse; Visit Provider Podiatrist Foot & Ankle Surgery | DX: M86.671 Other chronic osteomyelitis, right ankle and foot (principal); M14.671 Charcot's joint, right ankle and foot; E11.21 Type 2 diabetes mellitus with diabetic nephropathy; L97.522 Non-pressure chronic ulcer of other part of left foot with fat layer exposed | CPT/HCPCS: 99213 ==

== ENCOUNTER → 2023-07-29 14:09 | Outpatient (BNVA) | payer MEDICARE, OTHER, MEDICAID, SELFPAY | PROVIDERS: PCP Registered Nurse; Visit Provider Podiatrist Foot & Ankle Surgery | DX: M86.671 Other chronic osteomyelitis, right ankle and foot (principal); M14.671 Charcot's joint, right ankle and foot; E11.21 Type 2 diabetes mellitus with diabetic nephropathy | CPT/HCPCS: 99213 ==

== ENCOUNTER 2023-08-04 11:06 | Outpatient (RCR) | payer MEDICARE, OTHER, MEDICAID, SELFPAY ==
[2023-07-14 11:23] LABS: Basophils # 0.1 10^3/uL (0.0-0.1); Basophils % 0.7 %; Eosinophils # 0.4 10^3/uL (0.0-0.8); Eosinophils % 6.5 %; Hematocrit 33.4 % (37-53); Lymphocytes % 29.3 %; Mean Corpuscular HGB Conc 33.5 g/dL (30-55); Mean Corpuscular Hemoglobin 29.6 pg (27-33); Mean Corpuscular Volume 88.1 fl (82-101); Mean Platelet Volume 10.5 fL (7.4-10.4); Monocytes # 0.4 10^3/uL (0.2-0.9); Monocytes % 5.5 %; Neutrophils % 57.7 %; Nucleated Red Blood Cells % 0 %; Platelet Count 189 10^3/cmm (157-399); Red Blood Count 3.79 10^6/uL (3.85-5.65); Red Cell Distribution Width 15.8 % (12.1-15.1); White Blood Count 6.76 10^3/uL (3.29-11.43)
[2023-07-14 15:47] LABS: Alanine Aminotransferase 10 U/L (0-41); Albumin Level 3.5 g/dL (3.5-5.2); Alkaline Phosphatase 140 U/L (40-130); Anion Gap 12.8 (5-19); Aspartate Amino Transferase 11 U/L (0-40); Blood Urea Nitrogen 19 mg/dL (6-20); C Reactive Protein 4.1 mg/L (0.0-4.9); Calcium 8.6 mg/dL (8.5-10.5); Carbon Dioxide 25 mmol/L (22-29); Chloride 103 mmol/L (98-107); Globulin 3.6 g/dL (1.3-4.6); Glomerular Filtration Rate 78.2 mL/min (90-130); Glucose 173 mg/dL (65-115); Osmolality Calculated 290 mOsm/kg (285-295); Potassium 3.8 mmol/L (3.5-5.1); Sodium 137 mmol/L (136-145); Total Bilirubin 0.3 mg/dL (0.15-1.2); Total Protein 7.1 g/dL (6.6-8.7)
[2023-07-23 09:37] LABS: Basophils # 0.1 10^3/uL (0.0-0.1); Eosinophils # 0.4 10^3/uL (0.0-0.8); Eosinophils % 5.2 %; Hematocrit 35.5 % (37-53); Lymphocytes # 1.7 10^3/uL (0.8-4.8); Mean Corpuscular HGB Conc 33.5 g/dL (30-55); Mean Corpuscular Hemoglobin 29.5 pg (27-33); Mean Corpuscular Volume 88.1 fl (82-101); Mean Platelet Volume 10.1 fL (7.4-10.4); Monocytes # 0.4 10^3/uL (0.2-0.9); Monocytes % 6.4 %; Neutrophils # 4.31 10^3/uL (1.8-7.7); Neutrophils % 62.3 %; Nucleated Red Blood Cells % 0 %; Platelet Count 193 10^3/cmm (157-399); Red Blood Count 4.03 10^6/uL (3.85-5.65); Red Cell Distribution Width 15.6 % (12.1-15.1); White Blood Count 6.92 10^3/uL (3.29-11.43)
[2023-07-23 10:17] LABS: Alanine Aminotransferase 11 U/L (0-41); Albumin Level 3.5 g/dL (3.5-5.2); Alkaline Phosphatase 140 U/L (40-130); Anion Gap 16.8 (5-19); Aspartate Amino Transferase 12 U/L (0-40); Blood Urea Nitrogen 19 mg/dL (6-20); C Reactive Protein 4.1 mg/L (0.0-4.9); Calcium 8.7 mg/dL (8.5-10.5); Carbon Dioxide 22 mmol/L (22-29); Chloride 101 mmol/L (98-107); Globulin 3.4 g/dL (1.3-4.6); Glomerular Filtration Rate 78.2 mL/min (90-130); Glucose 150 mg/dL (65-115); Osmolality Calculated 287 mOsm/kg (285-295); Potassium 3.8 mmol/L (3.5-5.1); Sodium 136 mmol/L (136-145); Total Bilirubin 0.3 mg/dL (0.15-1.2); Total Protein 6.9 g/dL (6.6-8.7)
[2023-07-28 12:04] LABS: Basophils # 0.1 10^3/uL (0.0-0.1); Basophils % 0.9 %; Eosinophils # 0.4 10^3/uL (0.0-0.8); Eosinophils % 4.8 %; Hematocrit 38.4 % (37-53); Lymphocytes # 1.6 10^3/uL (0.8-4.8); Lymphocytes % 21.3 %; Mean Corpuscular HGB Conc 32.3 g/dL (30-55); Mean Corpuscular Hemoglobin 29.1 pg (27-33); Mean Corpuscular Volume 90.1 fl (82-101); Mean Platelet Volume 10.1 fL (7.4-10.4); Monocytes # 0.5 10^3/uL (0.2-0.9); Monocytes % 6.7 %; Neutrophils # 5.04 10^3/uL (1.8-7.7); Nucleated Red Blood Cells % 0 %; Platelet Count 186 10^3/cmm (157-399); Red Blood Count 4.26 10^6/uL (3.85-5.65); Red Cell Distribution Width 15.8 % (12.1-15.1); White Blood Count 7.64 10^3/uL (3.29-11.43)
[2023-07-28 12:22] LABS: Alanine Aminotransferase 13 U/L (0-41); Albumin Level 3.8 g/dL (3.5-5.2); Alkaline Phosphatase 148 U/L (40-130); Anion Gap 14.9 (5-19); Aspartate Amino Transferase 14 U/L (0-40); Blood Urea Nitrogen 18 mg/dL (6-20); Carbon Dioxide 24 mmol/L (22-29); Chloride 103 mmol/L (98-107); Globulin 3.1 g/dL (1.3-4.6); Glomerular Filtration Rate 88.3 mL/min (90-130); Glucose 109 mg/dL (65-115); Osmolality Calculated 288 mOsm/kg (285-295); Potassium 3.9 mmol/L (3.5-5.1); Sodium 138 mmol/L (136-145); Total Bilirubin 0.3 mg/dL (0.15-1.2); Total Protein 6.9 g/dL (6.6-8.7)
[2023-08-04 11:28] LABS: Basophils # 0.1 10^3/uL (0.0-0.1); Basophils % 0.9 %; Eosinophils # 0.3 10^3/uL (0.0-0.8); Eosinophils % 4.1 %; Hematocrit 38.9 % (37-53); Lymphocytes # 1.7 10^3/uL (0.8-4.8); Lymphocytes % 25.8 %; Mean Corpuscular HGB Conc 32.6 g/dL (30-55); Mean Corpuscular Hemoglobin 29.3 pg (27-33); Mean Corpuscular Volume 89.8 fl (82-101); Mean Platelet Volume 10.5 fL (7.4-10.4); Monocytes # 0.4 10^3/uL (0.2-0.9); Monocytes % 6.2 %; Neutrophils # 4.15 10^3/uL (1.8-7.7); Neutrophils % 62.5 %; Nucleated Red Blood Cells % 0 %; Platelet Count 175 10^3/cmm (157-399); Red Blood Count 4.33 10^6/uL (3.85-5.65); Red Cell Distribution Width 15.5 % (12.1-15.1); White Blood Count 6.63 10^3/uL (3.29-11.43)
[2023-08-04 12:05] LABS: Alanine Aminotransferase 14 U/L (0-41); Albumin Level 3.9 g/dL (3.5-5.2); Alkaline Phosphatase 147 U/L (40-130); Anion Gap 18.2 (5-19); Aspartate Amino Transferase 15 U/L (0-40); Blood Urea Nitrogen 26 mg/dL (6-20); C Reactive Protein 3.1 mg/L (0.0-4.9); Calcium 9.1 mg/dL (8.5-10.5); Carbon Dioxide 22 mmol/L (22-29); Chloride 109 mmol/L (98-107); Globulin 3.1 g/dL (1.3-4.6); Glomerular Filtration Rate 78.2 mL/min (90-130); Glucose 190 mg/dL (65-115); Osmolality Calculated 310 mOsm/kg (285-295); Potassium 4.2 mmol/L (3.5-5.1); Sodium 145 mmol/L (136-145); Total Bilirubin 0.4 mg/dL (0.15-1.2)
== END 2023-08-10 23:59 | disposition home or self-care (01) ==
LOC: LAB 11:06
PROVIDERS: PCP Registered Nurse; Visit Provider Internal Medicine
DX: M46.22 Osteomyelitis of vertebra, cervical region (principal)
CPT/HCPCS: 80053; 85025; 86140

== ENCOUNTER 2023-08-11 12:16 | Outpatient (RCR) | payer MEDICARE, OTHER, MEDICAID, SELFPAY ==
[2023-08-11 12:56] LABS: Basophils % 0.5 %; Eosinophils # 0.3 10^3/uL (0.0-0.8); Eosinophils % 3.1 %; Lymphocytes # 1.9 10^3/uL (0.8-4.8); Lymphocytes % 23.1 %; Mean Corpuscular Volume 85.6 fl (82-101); Mean Platelet Volume 10.3 fL (7.4-10.4); Monocytes # 0.5 10^3/uL (0.2-0.9); Monocytes % 5.9 %; Neutrophils # 5.37 10^3/uL (1.8-7.7); Nucleated Red Blood Cells % 0 %; Platelet Count 180 10^3/cmm (157-399); Red Blood Count 4.44 10^6/uL (3.85-5.65); Red Cell Distribution Width 15.1 % (12.1-15.1); White Blood Count 8.01 10^3/uL (3.29-11.43)
[2023-08-11 13:18] LABS: Alanine Aminotransferase 15 U/L (0-41); Alkaline Phosphatase 161 U/L (40-130); Anion Gap 16.7 (5-19); Aspartate Amino Transferase 17 U/L (0-40); Blood Urea Nitrogen 20 mg/dL (6-20); C Reactive Protein 3.9 mg/L (0.0-4.9); Calcium 9.1 mg/dL (8.5-10.5); Carbon Dioxide 23 mmol/L (22-29); Chloride 106 mmol/L (98-107); Globulin 3.5 g/dL (1.3-4.6); Glomerular Filtration Rate 78.2 mL/min (90-130); Glucose 134 mg/dL (65-115); Osmolality Calculated 299 mOsm/kg (285-295); Potassium 3.7 mmol/L (3.5-5.1); Sodium 142 mmol/L (136-145); Total Bilirubin 0.4 mg/dL (0.15-1.2); Total Protein 7.5 g/dL (6.6-8.7)
== END 2023-09-09 23:59 | disposition home or self-care (01) ==
LOC: LAB 12:16
PROVIDERS: PCP Registered Nurse; Visit Provider Internal Medicine
DX: M46.22 Osteomyelitis of vertebra, cervical region (principal)
CPT/HCPCS: 80053; 85025; 86140

== ENCOUNTER → 2023-10-01 09:51 | Outpatient (BNVA) | payer MEDICARE, MEDICAID, SELFPAY | PROVIDERS: PCP Registered Nurse; Visit Provider Podiatrist Foot & Ankle Surgery | DX: M86.671 Other chronic osteomyelitis, right ankle and foot (principal); M14.671 Charcot's joint, right ankle and foot; E11.21 Type 2 diabetes mellitus with diabetic nephropathy | CPT/HCPCS: 99213 ==

== ENCOUNTER → 2023-12-09 14:30 | Outpatient (BNVA) | payer MEDICARE, MEDICAID, SELFPAY | PROVIDERS: PCP Registered Nurse; Visit Provider Podiatrist Foot & Ankle Surgery | DX: M14.671 Charcot's joint, right ankle and foot (principal); L97.512 Non-pressure chronic ulcer of other part of right foot with fat layer exposed; E11.21 Type 2 diabetes mellitus with diabetic nephropathy; E11.621 Type 2 diabetes mellitus with foot ulcer | CPT/HCPCS: 29445 ==

== ENCOUNTER 2023-12-16 13:00 | Outpatient (CLI) | payer MEDICARE, MEDICAID, SELFPAY | END 2023-12-16 13:01 | disposition home or self-care (01) | LOC: SPT 12-17 08:54 | PROVIDERS: PCP Registered Nurse; Visit Provider Podiatrist Foot & Ankle Surgery | DX: Z46.89 Encounter for fitting and adjustment of other specified devices (principal); M86.671 Other chronic osteomyelitis, right ankle and foot; L97.512 Non-pressure chronic ulcer of other part of right foot with fat layer exposed | CPT/HCPCS: 99213; L4361 ==

== ENCOUNTER → 2023-12-30 14:11 | Outpatient (BNVA) | payer MEDICARE, MEDICAID, SELFPAY | PROVIDERS: PCP Registered Nurse; Visit Provider Podiatrist Foot & Ankle Surgery | DX: M14.671 Charcot's joint, right ankle and foot (principal); L97.512 Non-pressure chronic ulcer of other part of right foot with fat layer exposed; E11.21 Type 2 diabetes mellitus with diabetic nephropathy; E11.621 Type 2 diabetes mellitus with foot ulcer | CPT/HCPCS: 11042 ==

== ENCOUNTER → 2024-01-14 11:00 | Outpatient (BNVA) | payer MEDICARE, MEDICAID, SELFPAY | PROVIDERS: PCP Registered Nurse; Visit Provider Podiatrist Foot & Ankle Surgery | DX: Z51.89 Encounter for other specified aftercare (principal); M14.671 Charcot's joint, right ankle and foot; L97.512 Non-pressure chronic ulcer of other part of right foot with fat layer exposed; E11.21 Type 2 diabetes mellitus with diabetic nephropathy; E11.621 Type 2 diabetes mellitus with foot ulcer | CPT/HCPCS: 99213 ==

== ENCOUNTER → 2024-02-17 12:00 | Outpatient (BNVA) | payer MEDICARE, MEDICAID, SELFPAY | PROVIDERS: PCP Registered Nurse; Visit Provider Podiatrist Foot & Ankle Surgery | DX: M14.671 Charcot's joint, right ankle and foot (principal); E11.21 Type 2 diabetes mellitus with diabetic nephropathy | CPT/HCPCS: 99213 ==

== ENCOUNTER → 2024-03-08 10:30 | Outpatient (BNVA) | payer MEDICARE, MEDICAID, SELFPAY | PROVIDERS: PCP Registered Nurse; Visit Provider Registered Nurse | DX: E11.9 Type 2 diabetes mellitus without complications (principal) | CPT/HCPCS: 80053; 80061; 83036; 85025 ==

== ENCOUNTER → 2024-03-17 07:49 | Outpatient (BNVA) | payer MEDICARE, MEDICAID, SELFPAY | PROVIDERS: PCP Registered Nurse; Visit Provider Podiatrist Foot & Ankle Surgery | DX: M14.671 Charcot's joint, right ankle and foot (principal); E11.21 Type 2 diabetes mellitus with diabetic nephropathy; L97.222 Non-pressure chronic ulcer of left calf with fat layer exposed; L97.212 Non-pressure chronic ulcer of right calf with fat layer exposed; E11.621 Type 2 diabetes mellitus with foot ulcer | CPT/HCPCS: 99213 ==

== ENCOUNTER 2024-03-18 13:14 | Outpatient (CLI) | payer MEDICARE, MEDICAID, SELFPAY ==
--- NOTE | 2024-03-18 13:18 | XR_ITS ---
WS: [id number] XR hand LT min 3V* [id number] REASON FOR EXAM: L03.012 - Cellulitis of left finger FINDINGS: Soft tissue swelling of the second finger. No periosteal reaction or bone erosion. Joint spaces of the second through the fourth fingers are intact and well preserved. There is mild narrowing with mild subchondral sclerosis and osteophytosis in the 3 joints of the thum b. 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
== END 2024-03-18 13:15 | disposition home or self-care (01) ==
PROVIDERS: PCP Registered Nurse; Visit Provider Registered Nurse
DX: L03.012 Cellulitis of left finger (principal); L03.114 Cellulitis of left upper limb; T30.0 Burn of unspecified body region, unspecified degree; X58.XXXA Exposure to other specified factors, initial encounter
CPT/HCPCS: 73130

== ENCOUNTER → 2024-03-23 13:06 | Outpatient (BNVA) | payer MEDICARE, MEDICAID, SELFPAY | PROVIDERS: PCP Registered Nurse; Visit Provider Thoracic Surgery (Cardiothoracic Vascular Surgery) | DX: T23.242D Burn of second degree of multiple left fingers (nail), including thumb, subsequent encounter (principal); X03.0XXD Exposure to flames in controlled fire, not in building or structure, subsequent encounter | CPT/HCPCS: 97597; 99213; A6210; A6446 ==

== ENCOUNTER → 2024-03-30 13:00 | Outpatient (BNVA) | payer MEDICARE, MEDICAID, SELFPAY | PROVIDERS: PCP Registered Nurse; Visit Provider Thoracic Surgery (Cardiothoracic Vascular Surgery) | DX: T23.222D Burn of second degree of single left finger (nail) except thumb, subsequent encounter (principal); X03.0XXD Exposure to flames in controlled fire, not in building or structure, subsequent encounter; Z09 Encounter for follow-up examination after completed treatment for conditions other than malignant neoplasm | CPT/HCPCS: 97597; A6446 ==

== ENCOUNTER → 2024-04-13 12:58 | Outpatient (BNVA) | payer MEDICARE, MEDICAID, SELFPAY | PROVIDERS: PCP Registered Nurse; Visit Provider Thoracic Surgery (Cardiothoracic Vascular Surgery) | DX: I96 Gangrene, not elsewhere classified (principal); T23.222D Burn of second degree of single left finger (nail) except thumb, subsequent encounter; X03.0XXD Exposure to flames in controlled fire, not in building or structure, subsequent encounter | CPT/HCPCS: 11042 ==

== ENCOUNTER → 2024-04-19 13:51 | Outpatient (BNVA) | payer MEDICARE, MEDICAID, SELFPAY | PROVIDERS: PCP Registered Nurse; Visit Provider Thoracic Surgery (Cardiothoracic Vascular Surgery) | DX: I96 Gangrene, not elsewhere classified (principal); T23.222D Burn of second degree of single left finger (nail) except thumb, subsequent encounter; X03.0XXD Exposure to flames in controlled fire, not in building or structure, subsequent encounter | CPT/HCPCS: 97597; A6248 ==

== ENCOUNTER → 2024-04-26 10:52 | Outpatient (BNVA) | payer MEDICARE, MEDICAID, SELFPAY | PROVIDERS: PCP Registered Nurse; Visit Provider Thoracic Surgery (Cardiothoracic Vascular Surgery) | DX: I96 Gangrene, not elsewhere classified (principal); T23.222D Burn of second degree of single left finger (nail) except thumb, subsequent encounter; X03.0XXD Exposure to flames in controlled fire, not in building or structure, subsequent encounter | CPT/HCPCS: 97597 ==

== ENCOUNTER → 2024-05-31 12:36 | Outpatient (BNVA) | payer MEDICARE, MEDICAID, SELFPAY | PROVIDERS: PCP Registered Nurse; Visit Provider Podiatrist Foot & Ankle Surgery | DX: M14.671 Charcot's joint, right ankle and foot (principal); E11.21 Type 2 diabetes mellitus with diabetic nephropathy; L97.222 Non-pressure chronic ulcer of left calf with fat layer exposed; E11.621 Type 2 diabetes mellitus with foot ulcer | CPT/HCPCS: 99213 ==

== ENCOUNTER 2024-06-03 10:09 | Outpatient (CLI) | payer MEDICARE, MEDICAID, SELFPAY ==
--- NOTE | 2024-06-03 10:13 | XR_ITS ---
WS: [id number] Left foot, 3 views, 06/03/2024 Clinical Data: E11.621 - Type 2 diabetes mellitus with foot ulcer Comparison: None. Findings: No fractures or dislocations are seen. The left great toe shows small erosions at the base of the pro ximal phalanx. There is cystic change of the distal great toe proximal phalanx and base of the distal phalanx. There is soft tissue swelling of the left great toe. The remainder of the left foot shows no abnormalities. XR/XR foot LT min 3V* [id number] Impression: Erosions of the left great toe proximal phalanx along with cystic change of the proximal phalanx and distal phalanx of the left great toe which could indicate early osteomyelitis.
== END 2024-06-03 10:10 | disposition home or self-care (01) ==
LOC: RAD 10:10
PROVIDERS: PCP Registered Nurse; Visit Provider Thoracic Surgery (Cardiothoracic Vascular Surgery)
DX: E11.52 Type 2 diabetes mellitus with diabetic peripheral angiopathy with gangrene (principal); E11.621 Type 2 diabetes mellitus with foot ulcer; L97.522 Non-pressure chronic ulcer of other part of left foot with fat layer exposed; R93.6 Abnormal findings on diagnostic imaging of limbs
CPT/HCPCS: 11042; 73630; 99213

== ENCOUNTER → 2024-06-10 09:41 | Outpatient (BNVA) | payer MEDICARE, MEDICAID, SELFPAY | PROVIDERS: PCP Registered Nurse; Visit Provider Thoracic Surgery (Cardiothoracic Vascular Surgery) | DX: E11.52 Type 2 diabetes mellitus with diabetic peripheral angiopathy with gangrene (principal); E11.621 Type 2 diabetes mellitus with foot ulcer; L97.521 Non-pressure chronic ulcer of other part of left foot limited to breakdown of skin | CPT/HCPCS: 97597 ==

== ENCOUNTER 2024-06-16 12:46 | Outpatient (CLI) | payer MEDICARE, MEDICAID, SELFPAY ==
--- NOTE | 2024-06-16 13:00 | MR_ITS ---
WS: [email or web address] EXAMINATION: MR foot LT wo/w con [id number] ORDER DATE: 06/16/2024 1:11 PM COMPARISON: None. HISTORY: plain xray suspicious for osteo; left great toe ulcer CONTRAST: None. TECHNIQUE: Sagittal T1, sagittal STIR, coronal PD, coronal T2, axial T1, axial T2, and axial PD imaging with fat saturation technique. Post gadolinium imaging includes axial T1, coronal T1, and sagittal T1 with fat saturation technique. FINDINGS: Area of interest is somewhat difficult to image due to far anterior and peripheral location overlying the great toe. Osteopenia. Hallux valgus. Degenerative changes first MTP and and first DIP. T1 bone marrow signal is preserved in the proximal and distal first phalanx. Subchondral cystic changes involving the distal aspect of the proximal phalanx. Soft tissue ulcer involving the first toe. No evidence of drainable abscess or fluid collection. No evidence of osteomyelitis. Additional smaller ulceration overlying the first MTP joint with induration extending to the adjacent sesamoid with preserved fatty T1 marrow signal. No convincing evidence of osteomyelitis in this area. Degenerative changes visualized in the IP joints and MTP joints. Normal visualized cuneiforms with degenerative changes in the midfoot. MR/MR foot LT wo/w con [id number] IMPRESSION: 1. No evidence of drainable abscess or fluid collection. 2. No evidence of first toe osteomyelitis.
[2024-06-16] MEDS: gadobenate dimeglumine 20 mL vial IV (13:53)
== END 2024-06-16 12:47 | disposition home or self-care (01) ==
PROVIDERS: PCP Registered Nurse; Visit Provider Thoracic Surgery (Cardiothoracic Vascular Surgery)
DX: E11.621 Type 2 diabetes mellitus with foot ulcer (principal); L97.529 Non-pressure chronic ulcer of other part of left foot with unspecified severity; M85.872 Other specified disorders of bone density and structure, left ankle and foot; M20.12 Hallux valgus (acquired), left foot; M19.072 Primary osteoarthritis, left ankle and foot; R93.6 Abnormal findings on diagnostic imaging of limbs
CPT/HCPCS: 73720

== ENCOUNTER → 2024-06-17 09:36 | Outpatient (BNVA) | payer MEDICARE, MEDICAID, SELFPAY | PROVIDERS: PCP Registered Nurse; Visit Provider Thoracic Surgery (Cardiothoracic Vascular Surgery) | DX: E11.52 Type 2 diabetes mellitus with diabetic peripheral angiopathy with gangrene (principal); E11.621 Type 2 diabetes mellitus with foot ulcer; L97.521 Non-pressure chronic ulcer of other part of left foot limited to breakdown of skin | CPT/HCPCS: 97597 ==

== ENCOUNTER → 2024-06-24 09:52 | Outpatient (BNVA) | payer MEDICARE, MEDICAID, SELFPAY | PROVIDERS: PCP Registered Nurse; Visit Provider Thoracic Surgery (Cardiothoracic Vascular Surgery) | DX: Z09 Encounter for follow-up examination after completed treatment for conditions other than malignant neoplasm (principal); Z87.2 Personal history of diseases of the skin and subcutaneous tissue | CPT/HCPCS: 99212 ==

== ENCOUNTER → 2024-08-25 14:03 | Outpatient (BNVA) | payer MEDICARE, MEDICAID, SELFPAY | PROVIDERS: PCP Registered Nurse; Visit Provider Podiatrist Foot & Ankle Surgery | DX: E11.621 Type 2 diabetes mellitus with foot ulcer (principal); L97.222 Non-pressure chronic ulcer of left calf with fat layer exposed; M14.671 Charcot's joint, right ankle and foot; E11.21 Type 2 diabetes mellitus with diabetic nephropathy; Z79.4 Long term (current) use of insulin | CPT/HCPCS: 99213 ==

== ENCOUNTER → 2024-11-03 13:56 | Outpatient (BNVA) | payer MEDICARE, MEDICAID, SELFPAY | PROVIDERS: PCP Registered Nurse; Visit Provider Podiatrist Foot & Ankle Surgery | DX: E11.621 Type 2 diabetes mellitus with foot ulcer (principal); L97.522 Non-pressure chronic ulcer of other part of left foot with fat layer exposed; E11.8 Type 2 diabetes mellitus with unspecified complications; M14.671 Charcot's joint, right ankle and foot; E11.21 Type 2 diabetes mellitus with diabetic nephropathy; L03.116 Cellulitis of left lower limb | CPT/HCPCS: 11042; 99214 ==

== ENCOUNTER → 2024-11-24 14:44 | Outpatient (BNVA) | payer MEDICARE, MEDICAID, SELFPAY | PROVIDERS: PCP Registered Nurse; Visit Provider Podiatrist Foot & Ankle Surgery | DX: L97.522 Non-pressure chronic ulcer of other part of left foot with fat layer exposed (principal) | CPT/HCPCS: 87070; 87075; 87077; 87186; 87205 ==

== ENCOUNTER → 2024-12-08 12:22 | Outpatient (BNVA) | payer MEDICARE, MEDICAID, SELFPAY | PROVIDERS: PCP Registered Nurse; Visit Provider Podiatrist Foot & Ankle Surgery | DX: E11.621 Type 2 diabetes mellitus with foot ulcer (principal); L97.522 Non-pressure chronic ulcer of other part of left foot with fat layer exposed; E11.21 Type 2 diabetes mellitus with diabetic nephropathy; E11.8 Type 2 diabetes mellitus with unspecified complications; M14.671 Charcot's joint, right ankle and foot | CPT/HCPCS: 99213 ==

== ENCOUNTER → 2024-12-29 13:41 | Outpatient (BNVA) | payer MEDICARE, MEDICAID, SELFPAY | PROVIDERS: PCP Registered Nurse; Visit Provider Podiatrist Foot & Ankle Surgery | DX: E11.621 Type 2 diabetes mellitus with foot ulcer (principal); E11.21 Type 2 diabetes mellitus with diabetic nephropathy; L97.522 Non-pressure chronic ulcer of other part of left foot with fat layer exposed; E11.8 Type 2 diabetes mellitus with unspecified complications; M14.671 Charcot's joint, right ankle and foot | CPT/HCPCS: 11042 ==

== ENCOUNTER → 2024-12-31 08:02 | Outpatient (BNVA) | payer MEDICARE, MEDICAID, SELFPAY | PROVIDERS: PCP Registered Nurse; Visit Provider Physician Assistant | DX: G56.03 Carpal tunnel syndrome, bilateral upper limbs (principal); G56.23 Lesion of ulnar nerve, bilateral upper limbs | CPT/HCPCS: 73130; 99203 ==

== ENCOUNTER → 2025-01-19 12:57 | Outpatient (BNVA) | payer MEDICARE, MEDICAID, SELFPAY | PROVIDERS: PCP Registered Nurse; Visit Provider Podiatrist Foot & Ankle Surgery | DX: E11.21 Type 2 diabetes mellitus with diabetic nephropathy (principal); E11.621 Type 2 diabetes mellitus with foot ulcer; L97.522 Non-pressure chronic ulcer of other part of left foot with fat layer exposed; E11.8 Type 2 diabetes mellitus with unspecified complications; M14.671 Charcot's joint, right ankle and foot | CPT/HCPCS: 99213 ==

== ENCOUNTER → 2025-01-27 14:35 | Outpatient (BNVA) | payer MEDICARE, MEDICAID, SELFPAY | PROVIDERS: PCP Registered Nurse; Visit Provider Registered Nurse | DX: E11.59 Type 2 diabetes mellitus with other circulatory complications (principal) | CPT/HCPCS: 80053; 80061; 83036; 85025 ==

== ENCOUNTER → 2025-02-09 12:23 | Outpatient (BNVA) | payer MEDICARE, MEDICAID, SELFPAY | PROVIDERS: PCP Registered Nurse; Visit Provider Podiatrist Foot & Ankle Surgery | DX: E11.21 Type 2 diabetes mellitus with diabetic nephropathy (principal); E11.621 Type 2 diabetes mellitus with foot ulcer; L97.522 Non-pressure chronic ulcer of other part of left foot with fat layer exposed; M14.671 Charcot's joint, right ankle and foot | CPT/HCPCS: 99213 ==

== ENCOUNTER → 2025-02-22 08:53 | Outpatient (BNVA) | payer MEDICARE, MEDICAID, SELFPAY | PROVIDERS: PCP Registered Nurse; Referring Provider Physician Assistant; Visit Provider Specialist | DX: G56.20 Lesion of ulnar nerve, unspecified upper limb (principal); G56.00 Carpal tunnel syndrome, unspecified upper limb | CPT/HCPCS: 95911 ==

== ENCOUNTER → 2025-03-02 13:14 | Outpatient (BNVA) | payer MEDICARE, MEDICAID, SELFPAY | PROVIDERS: PCP Registered Nurse; Visit Provider Podiatrist Foot & Ankle Surgery | DX: E11.21 Type 2 diabetes mellitus with diabetic nephropathy (principal); E11.621 Type 2 diabetes mellitus with foot ulcer; L97.522 Non-pressure chronic ulcer of other part of left foot with fat layer exposed; E11.8 Type 2 diabetes mellitus with unspecified complications; M14.671 Charcot's joint, right ankle and foot | CPT/HCPCS: 99213 ==

== ENCOUNTER → 2025-03-09 10:30 | Outpatient (BNVA) | payer MEDICARE, MEDICAID, SELFPAY | PROVIDERS: PCP Registered Nurse; Visit Provider Physician Assistant | DX: G56.01 Carpal tunnel syndrome, right upper limb (principal); G56.21 Lesion of ulnar nerve, right upper limb | CPT/HCPCS: 99214 ==

== ENCOUNTER → 2025-03-30 13:01 | Outpatient (BNVA) | payer MEDICARE, MEDICAID, SELFPAY | PROVIDERS: PCP Registered Nurse; Visit Provider Podiatrist Foot & Ankle Surgery | DX: E11.21 Type 2 diabetes mellitus with diabetic nephropathy (principal); E11.621 Type 2 diabetes mellitus with foot ulcer; L97.522 Non-pressure chronic ulcer of other part of left foot with fat layer exposed; E11.8 Type 2 diabetes mellitus with unspecified complications; M14.671 Charcot's joint, right ankle and foot; Z79.85 Long-term (current) use of injectable non-insulin antidiabetic drugs | CPT/HCPCS: 99213 ==

== ENCOUNTER → 2025-04-25 12:22 | Outpatient (BNVA) | payer MEDICARE, MEDICAID, SELFPAY | PROVIDERS: PCP Registered Nurse; Visit Provider Podiatrist Foot & Ankle Surgery | DX: E11.21 Type 2 diabetes mellitus with diabetic nephropathy (principal); L97.522 Non-pressure chronic ulcer of other part of left foot with fat layer exposed; E11.8 Type 2 diabetes mellitus with unspecified complications; M14.671 Charcot's joint, right ankle and foot; E11.621 Type 2 diabetes mellitus with foot ulcer; Z79.85 Long-term (current) use of injectable non-insulin antidiabetic drugs | CPT/HCPCS: 99213 ==